=== PATIENT | female | born 1955 ===

== ENCOUNTER → 2019-12-18 12:52 | Outpatient (BNVA) | payer MEDICAID, SELFPAY | PROVIDERS: PCP Nurse Practitioner Family; Referring Provider Nurse Practitioner Family; Visit Provider Nurse Practitioner Gerontology | DX: E11.65 Type 2 diabetes mellitus with hyperglycemia (principal); E11.22 Type 2 diabetes mellitus with diabetic chronic kidney disease; N18.30 Chronic kidney disease, stage 3 unspecified; E78.5 Hyperlipidemia, unspecified; Z79.4 Long term (current) use of insulin | CPT/HCPCS: 82947; 99214 ==

== ENCOUNTER 2020-01-07 16:25 | Emergency (ER) | payer MEDICAID, SELFPAY ==
[2020-01-07 16:38] VITALS: BP 166/70; PULSE 88; RESP 15; TEMP 37.3; O2SAT 97; BMI 33.2
--- NOTE | 2020-01-07 17:49 | ECG_ITS ---
Test Reason : ANXIETY Blood Pressure : / mmHG Vent. Rate : 091 BPM Atrial Rate : 091 BPM P-R Int : 156 ms QRS Dur : 120 ms QT Int : 392 ms P-R-T Axes : 072 -49 067 degrees QTc Int : 482 ms Normal sinus rhythm Right bundle branch block Left anterior fascicular block Bifascicular block Abnormal ECG Compared to 17-Jul-2019 at 15:34:20 Heart rate has decreased Referred By: Alex Rodriguez Electronically Signed By:GRUPO RAY MD
--- NOTE | 2020-01-07 17:49 | XR_ITS ---
EXAMINATION: XR CHEST CLINICAL INFORMATION: Shortness of breath COMPARISON: Chest x-ray 08/10/2019 and CTA chest 05/06/2016 TECHNIQUE: Frontal view of the chest was obtained. FINDINGS: Cardiac silhouette is normal in size. Lungs are adequately aerated. No lobar consolidation is present. There is similar coarsening of the interstitial markings with subtle bibasilar opacities which appear chronic. No pleural effusion or pneumothorax. No gross osseous abnormality. XR/XR chest 1V IMPRESSION: Chronic coarsening of the interstitial markings with subtle bibasilar opacities. Findings are nonspecific but likely hvac sales representative of air trapping from small airways disease. Given the chronic nature of these findings, infection is lower on the differential. Clinical correlation recommended.
--- NOTE | 2020-01-07 17:52 | ED.ANXIETY ---
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 Patient otherwise declined SI or HI or hallucination. Related Data Home Medications Medication Instructions Recorded Confirmed docusate sodium 100 mg capsule 100 mg PO BID 12/18/19 12/18/19 ibuprofen 800 mg tablet 800 mg PO Q8H 12/18/19 12/18/19 lamotrigine 100 mg tablet 100 mg PO DAILY 12/18/19 12/18/19 lisinopril 10 mg tablet 10 mg PO DAILY 12/18/19 12/18/19 lorazepam 1 mg tablet 1 mg PO TID PRN 12/18/19 12/18/19 olanzapine 15 mg tablet 15 mg PO DAILY 12/18/19 12/18/19 omeprazole 20 mg capsule,delayed 20 mg PO DAILY 12/18/19 12/18/19 release simvastatin 20 mg tablet 20 mg PO BEDTIME 12/18/19 12/18/19 vilazodone 20 mg tablet 20 mg PO DAILY 12/18/19 12/18/19 Previous Rx's Medication Instructions Recorded pioglitazone 30 mg tablet 30 mg PO DAILY 30 Days #30 tab 12/03/19 simvastatin 20 mg tablet 20 mg PO DAILY 30 Days #30 tab 12/03/19 metformin 500 mg tablet 500 mg PO BID #60 tab 12/18/19 aspirin 81 mg tablet,delayed 81 mg PO DAILY #30 tab 01/01/20 release insulin aspar prot-insulin aspart See Rx Instructions SUBCUT BID 30 01/01/20 100 unit/mL (70-30) subcutaneous Days #18 ml pen Allergies Allergy/AdvReac Type Severity Reaction Status Date / Time duloxetine [Cymbalta] Allergy Unknown Verified 10/01/19 00:00 hydroxyzine Allergy Unknown Verified 10/01/19 00:00 risperidone Allergy Unknown Verified 10/01/19 00:00 trazodone Allergy Unknown Verified 10/01/19 00:00 quetiapine [From SEROQUEL] AdvReac Severe Acute Unverified 11/15/19 15:07 Dystonic reaction Review of Systems Review of Systems: All other systems are reviewed and are negative Constitutional: Reports as per HPI and Reports no additional constitutional complaints Eyes: Reports as per HPI and Reports no additional eye complaints Reports system reviewed and no additional complaints, except as documented Cardiovascular: Reports as per HPI and Reports no additional cardiovascular complaints Respiratory: Reports as per HPI and Reports no additional respiratory complaints Gastrointestinal: Reports as per HPI and Reports no additional gastrointestinal complaints Genitourinary: Reports no additional female genitourinary complaints Musculoskeletal: Reports no additional musculoskeletal complaints Skin/Breast: Reports system reviewed and no additional complaints, except as docu Psychiatric: Reports no additional psychiatric complaints Endocrine: Reports no additional endocrine complaints Hematologic/Lymphatic: Reports no additional hematologic/lymphatic complaints Allergic/Immunologic: Reports no additional allergic/immunologic complaints Reports system reviewed and no additional complaints, except as documented and Reports Abnormal speech present [facility] Past Medical History Medical History CAD (coronary artery disease) Chronic kidney disease, stage 3 unspecified Dementia Depression with anxiety Dermatitis Dermatophytosis Diabetes mellitus with hyperglycemia Dyslipidemia Essential hypertension Joint pain PTSD (post-traumatic stress disorder) Schizoaffective disorder Smoking 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 Mother No problems noted. Social History Social History Household Members: None Smoking Status: Smoker, status unknown Advance Directives: No Advance Directives Information Provided: Yes Physical Exam Vital Signs: Vital Signs: Last Vital Signs Temp 99.1 F 01/07/20 16:38 Pulse 88 01/07/20 16:38 Resp 15 01/07/20 16:38 BP 166/70 H 01/07/20 16:38 Pulse Ox 97 01/07/20 16:38 Body Mass Index 33.2 Vital signs have been reviewed as normal and appeared to be correct. Blood pressure on the high range. Heart rate normal. Respiration rate normal. Temperature normal. Oxygen saturation normal. Appearance: Alert. Oriented X3. No acute distress. Appears anxious Head: Normal external exam. Normocephalic. Atraumatic. No Mathew signs noted. No raccoon eyes noted Eyes: PERRLA. EOMI. Conjunctiva and sclera normal. Eyelids normal. ENT: EAC normal. TM's Normal. Pharynx normal. Uvula midline. Moist mucous membranes. No trismus noted. No drooling noted. No muffled voice noted. Neck: Normal inspection. Neck supple. FROM. No adenopathy. Thyroid Normal. No meningeal signs. No neck mass noted. CVS: Normal heart rate and rhythm. Heart sound normal. No murmurs noted. Pulses normal throughout. Respiratory: No respiratory distress. Painless inspiration. Breath sounds normal. No wheezes/rales/rhonchi noted. Chest nontender. No accessory muscle usage noted or decreased air movement noted. Abdomen: Soft and nontender. Bowel sounds normal in all 4 quadrants. No distention noted. No organomegaly noted. No visible injury noted. Back: No CVA tenderness. Full range of motion noted. Skin: Skin warm and dry. Normal skin color. Normal skin turgor. No rashes/lesions/lacerations noted. Extremities: No lower extremity edema. Extremities exhibit normal range of motion. Extremities nontender. Neuro: Oriented X 3. No motor deficit. No sensory deficit. Reflexes normal. 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 MDM - Anxiety MDM Narrative Medical decision making narrative: 64-year-old female been on Ativan for anxiety for very long time, patient has not received her Ativan at home for the past week, patient is supposed to receive a new prescription tomorrow. Patient received 1 dose of Ativan in the emergency department with relief of most of her symptoms,. Labs were checked slight leukocytosis with unclear etiology, rest of her labs are unremarkable otherwise. Lab Data Result diagrams: 01/07/20 19:34 01/07/20 19:34 Labs: Lab Results 01/07/20 01/07/20 01/07/20 Range/Units 19:34 19:34 19:34 WBC 13.2 H (4.8-10.8) X10*3/uL RBC 4.52 (4.20-5.50) X10*6/uL Hgb 12.4 (12.0-16.0) g/dl Hct 38.2 (37-47) % MCV 84.5 (80-98) fL MCH 27.4 (27.0-33.0) pg MCHC 32.5 (31.0-35.0) g/dl RDW 13.9 (11.0-16.0) % Plt Count 188 (160-400) X10*3/uL MPV 12.7 H (9.4-12.3) fL Immature Gran % (Auto) 0.3 (0.0-0.4) % Neut % (Auto) 54.0 (45-73) % Lymph % (Auto) 37.0 (20-40) % [place] % (Auto) 7.3 (2-11) % Eos % (Auto) 1.1 (0-4) % Baso % (Auto) 0.3 (0-2) % Lymph # (Auto) 4.9 (1.2-4.9) X10*3/uL [place] # (Auto) 1.0 (0.1-1.2) X10*3/uL Eos # (Auto) 0.2 (0.0-0.4) X10*3/uL Baso # (Auto) 0.0 (0.0-0.2) X10*3/uL Abs Immat Gran (auto) 0.04 H (0.00-0.03) X10*3/uL Absolute Neuts (auto) 7.1 (2.0-8.3) X10*3/uL Absolute Nucleated RBC 0.000 (0.0-0.012) X10*3/uL Nucleated RBC % (auto) 0.0 (0.0-0.2) /100WBC Sodium 137 (135-145) mmol/L Potassium 4.4 (3.3-5.1) mmol/l Chloride 102 (96-108) mmol/L Carbon Dioxide 27 (22-29) mmol/L Anion Gap 12 (12-20) BUN 17 H (9-16) mg/dL Creatinine 1.25 (0.5-1.4) mg/dL Estim Creat Clear Calc 42.2 Estimated GFR 43 Random Glucose 257 H (60-115) mg/dL Calcium 9.3 (8.4-10.2) mg/dL Troponin I High Sens 6.0 (<3.5-17.0) ng/L B-Natriuretic Peptide (<100) pg/mL Lipase 26 (8-78) U/L 01/07/20 Range/Units 19:34 WBC (4.8-10.8) X10*3/uL RBC (4.20-5.50) X10*6/uL Hgb (12.0-16.0) g/dl Hct (37-47) % MCV (80-98) fL MCH (27.0-33.0) pg MCHC (31.0-35.0) g/dl RDW (11.0-16.0) % Plt Count (160-400) X10*3/uL MPV (9.4-12.3) fL Immature Gran % (Auto) (0.0-0.4) % Neut % (Auto) (45-73) % Lymph % (Auto) (20-40) % [place] % (Auto) (2-11) % Eos % (Auto) (0-4) % Baso % (Auto) (0-2) % Lymph # (Auto) (1.2-4.9) X10*3/uL [place] # (Auto) (0.1-1.2) X10*3/uL Eos # (Auto) (0.0-0.4) X10*3/uL Baso # (Auto) (0.0-0.2) X10*3/uL Abs Immat Gran (auto) (0.00-0.03) X10*3/uL Absolute Neuts (auto) (2.0-8.3) X10*3/uL Absolute Nucleated RBC (0.0-0.012) X10*3/uL Nucleated RBC % (auto) (0.0-0.2) /100WBC Sodium (135-145) mmol/L Potassium (3.3-5.1) mmol/l Chloride (96-108) mmol/L Carbon Dioxide (22-29) mmol/L Anion Gap (12-20) BUN (9-16) mg/dL Creatinine (0.5-1.4) mg/dL Estim Creat Clear Calc Estimated GFR Random Glucose (60-115) mg/dL Calcium (8.4-10.2) mg/dL Troponin I High Sens (<3.5-17.0) ng/L B-Natriuretic Peptide 11 (<100) pg/mL Lipase (8-78) U/L Imaging Data Chest x-ray: Radiologist's impression: Chronic coarsening of the interstitial markings with subtle bibasilar opacities. Findings are nonspecific but likely human resources hr representative of air trapping from small airways disease. Given the chronic nature of these findings, infection is lower on the differential. Clinical correlation recommended. ECG Data Interpretation: Normal sinus rhythm at 91 beats per minutes, a right bundle branch block, LVH, otherwise no concern of ST-T changes. No EKG changes from June 2019. Discharge Plan Discharge Clinical Impression: Anxiety Patient Disposition: Home, Self-Care Instructions: Generalized Anxiety Disorder (ED) Prescriptions: No Action pioglitazone 30 mg tablet 30 mg PO DAILY 30 Days Qty: 30 RF: 1 simvastatin 20 mg tablet 20 mg PO DAILY 30 Days Qty: 30 RF: 1 aspirin [Adult Aspirin Regimen] 81 mg tablet,delayed release (DR/EC) 81 mg PO DAILY Qty: 30 RF: 11 insulin asp prt-insulin aspart [Novolog Mix 70-30FlexPen U-100] 100 unit/mL (70-30) insulin pen See Rx Instructions subcut BID 30 Days Qty: 18 RF: 4 olanzapine [Zyprexa] 15 mg tablet 15 mg PO DAILY RF: 0 Viibryd 20 mg tablet 20 mg PO DAILY RF: 0 lamotrigine [Lamictal] 100 mg tablet 100 mg PO DAILY RF: 0 docusate sodium [Colace] 100 mg capsule 100 mg PO BID RF: 0 lorazepam [Ativan] 1 mg tablet 1 mg PO TID PRNRF: 0 ibuprofen 800 mg tablet 800 mg PO Q8H RF: 0 simvastatin [Zocor] 20 mg tablet 20 mg PO BEDTIME RF: 0 lisinopril 10 mg tablet 10 mg PO DAILY RF: 0 omeprazole 20 mg capsule,delayed release(DR/EC) 20 mg PO DAILY RF: 0 metformin 500 mg tablet 500 mg PO BID Qty: 60 RF: 6 Referrals: Physician,Unknown [Primary Care Provider] - 2 days
--- NOTE | 2020-01-07 17:58 | PC.NURSE ---
this rn calling slat basket maker machine, mgagy [phone] who states she ran out of ativan on . prescriber at [facility] said rx was sent to pharmacy but that med minder is seen by rn's bid from a. patient may have missed last med review and that pcp isn't sending refills for that reason. will see pcp on jan 16. takes ativan 1mg tid. will be delivered tomorrow. [facility] otherwise. please give one dose in ed and one by rx for am. 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
[2020-01-07 19:40] LABS: Basophils Percent Auto 0.3 % (0-2); Eosinophils Absolute Auto 0.2 X10*3/uL (0.0-0.4); Eosinophils Percent Auto 1.1 % (0-4); Hematocrit 38.2 % (37-47); Hemoglobin 12.4 g/dl (12.0-16.0); Imm Gran Abs Auto 0.04 X10*3/uL (0.00-0.03); Imm Gran Pct Auto 0.3 % (0.0-0.4); Lymphocytes Absolute Auto 4.9 X10*3/uL (1.2-4.9); MANUAL DIFF FLAG NO; Mean Corpuscular HGB Conc 32.5 g/dl (31.0-35.0); Mean Corpuscular Hemoglobin 27.4 pg (27.0-33.0); Mean Corpuscular Volume 84.5 fL (80-98); Mean Platelet Volume 12.7 fL (9.4-12.3); Monocytes Percent Auto 7.3 % (2-11); Neutrophils Absolute Auto 7.1 X10*3/uL (2.0-8.3); Platelet Count 188 X10*3/uL (160-400); Red Blood Count 4.52 X10*6/uL (4.20-5.50); Red Cell Distribution Width 13.9 % (11.0-16.0); White Blood Count 13.2 X10*3/uL (4.8-10.8)
[2020-01-07 20:00] LABS: Anion Gap 12 (12-20); Blood Urea Nitrogen 17 mg/dL (9-16); Calcium 9.3 mg/dL (8.4-10.2); Carbon Dioxide 27 mmol/L (22-29); Chloride 102 mmol/L (96-108); Creatinine Clr Calc Pharmacy 42.2; Estimated Glomerular Filt Rate 43; Glucose Random 257 mg/dL (60-115); Lipase 26 U/L (8-78); Potassium 4.4 mmol/l (3.3-5.1); Sodium 137 mmol/L (135-145)
[2020-01-07 20:05] LABS: B Type Natriuretic Peptide 11 pg/mL (<100)
[2020-01-07] MEDS: LORazepam 1 MG TABLET PO (20:23)
--- NOTE | 2020-01-07 20:24 | PC.NURSE ---
pt has been calm. sleeping at times
[2020-01-07 21:08] VITALS: BP 131/57; PULSE 88; RESP 16; TEMP 36.7; O2SAT 100
[2020-01-07 22:00] VITALS: BP 125/75; PULSE 85; RESP 16; TEMP 36.7; O2SAT 100
--- NOTE | 2020-01-07 22:00 | PC.NURSE ---
son, annita, aware of need for ride home and results of work up. pt will have ativan available at lunch times via normal route.
== END 2020-01-07 22:11 | disposition home or self-care (01) ==
PROVIDERS: Emergency Provider Emergency Medicine
DX: F41.1 Generalized anxiety disorder (principal); F43.0 Acute stress reaction; M54.5 Low back pain; I25.10 Atherosclerotic heart disease of native coronary artery without angina pectoris; Z79.899 Other long term (current) drug therapy
CPT/HCPCS: 36415; 71045; 80048; 83690; 83880; 84484; 85025; 93005; 99283; 99284

== ENCOUNTER 2020-02-26 16:50 | Outpatient (REF) | payer MEDICAID, SELFPAY | END 2020-02-26 16:51 | disposition home or self-care (01) | LOC: HO.LAB 16:50 | PROVIDERS: Visit Provider Internal Medicine | DX: Z20.828 Contact with and (suspected) exposure to other viral communicable diseases (principal) | CPT/HCPCS: C9803; U0003 ==

== ENCOUNTER 2020-03-12 08:49 | Outpatient (REF) | payer MEDICAID, SELFPAY ==
[2020-03-12 10:58] LABS: Alanine Aminotransferase 17 U/L (0-31); Albumin Level 4.5 g/dL (3.5-5.0); Alkaline Phosphatase 108 U/L (39-117); Anion Gap 13 (12-20); Aspartate Amino Transferase 13 U/L (5-31); Bilirubin Total 0.3 mg/dL (0.0-1.0); Blood Urea Nitrogen 15 mg/dL (9-16); Calcium 10.2 mg/dL (8.4-10.2); Carbon Dioxide 28 mmol/L (22-29); Chloride 99 mmol/L (96-108); Cholesterol 195 mg/dL; Estimated Glomerular Filt Rate 46; Glucose Fasting 237 mg/dL (60-99); HDL Cholesterol 47 mg/dL; LDL Cholesterol Calculated 102 mg/dl; Potassium 4.6 mmol/l (3.3-5.1); Sodium 135 mmol/L (135-145); Triglycerides 233 mg/dL
[2020-03-12 11:08] LABS: Creatinine Urine 32.62 mg/dL; Microalbum/Creatinine Ratio Ur 39.8 ug/mg cr
[2020-03-13 06:17] LABS: LDL Cholesterol Direct 114 mg/dL (<100)
== END 2020-03-12 08:50 | disposition home or self-care (01) ==
LOC: HO.LAB 08:49
PROVIDERS: PCP Registered Nurse; Visit Provider Nurse Practitioner Gerontology
DX: E11.65 Type 2 diabetes mellitus with hyperglycemia (principal); Z79.4 Long term (current) use of insulin
CPT/HCPCS: 36415; 80053; 80061; 82043; 83721

== ENCOUNTER → 2020-03-18 10:25 | Outpatient (BNVA) | payer MEDICAID, SELFPAY | PROVIDERS: PCP Registered Nurse; Visit Provider Nurse Practitioner Gerontology ==

== ENCOUNTER 2020-04-28 14:39 | Outpatient (REF) | payer MEDICAID, SELFPAY ==
--- NOTE | ~2020-04-28 | MR_ITS ---
EXAMINATION: MR LUMBAR SPINE WITHOUT CONTRAST CLINICAL INFORMATION: Acute flare-up of chronic low back pain. COMPARISON: CT lumbar spine 03/16/2019 TECHNIQUE: MRI of the lumbar spine was obtained using routine sequences without contrast. FINDINGS: There is normal lumbar lordosis. There is loss of L3-L4 and L5-S1 disc heights with degenerative disc changes. The rest of the disc heights and disc signal is normal. At L1-L2 and L2-L3 disc levels there is no significant disc bulge, herniation or spinal stenosis. The neural foramina are patent bilaterally. At L3-L4 disc level there is a broad-based moderate diffuse bulge flattening the ventral thecal sac with minimal circumferential canal stenosis. There is bilateral moderate narrowing of neural foramina from underlying facet joint arthropathy and mild ligament flavum hypertrophy. At L4-L5 disc level there is mild diffuse bulge flattening of the ventral thecal sac without spinal canal stenosis. There is mild bilateral facet joint and ligament flavum hypertrophy resulting in mild bilateral spinal canal stenosis. No disc herniation seen. At L5-S1 disc level there is combination of posterior disc bulge/spondylosis complex without spinal canal stenosis. There is severe bilateral neural foraminal narrowing from underlying disc bulge/spondylosis complex. There is [id number] bilateral facet joint arthropathy and hypertrophy. Mild endplate changes are seen at the L5-S1 and L3-L4 disc levels. The rest of the bone marrow signal is normal. Conus medullaris terminates at L1-L2 disc level. MR/MR lumbar spine wo con IMPRESSION: 1. Broad-based moderate diffuse bulge L3-L4 disc level with minimal circumferential canal stenosis and moderate bilateral neural foraminal narrowing. 2. Disc bulge/osteophyte complex L5-S1 disc level without spinal canal stenosis. There is severe bilateral neural from narrowing. 3. Degenerative disc changes with vacuum disc phenomena and endplate changes at the L3-L4 and L5-S1 disc levels.
== END 2020-04-28 14:40 | disposition home or self-care (01) ==
LOC: HO.MRI 14:39
PROVIDERS: Visit Provider Nurse Practitioner Family
DX: M54.41 Lumbago with sciatica, right side (principal); M54.42 Lumbago with sciatica, left side
CPT/HCPCS: 72148

== ENCOUNTER → 2020-04-29 12:49 | Outpatient (BNVA) | payer MEDICAID, SELFPAY | PROVIDERS: PCP Registered Nurse; Visit Provider Nurse Practitioner Gerontology | DX: E11.65 Type 2 diabetes mellitus with hyperglycemia (principal); E11.22 Type 2 diabetes mellitus with diabetic chronic kidney disease; N18.30 Chronic kidney disease, stage 3 unspecified; Z79.4 Long term (current) use of insulin; E78.5 Hyperlipidemia, unspecified | CPT/HCPCS: 82947; 99212 ==

== ENCOUNTER → 2020-05-13 13:26 | Outpatient (BNVA) | payer MEDICAID, SELFPAY | PROVIDERS: PCP Registered Nurse; Visit Provider Nurse Practitioner Gerontology | DX: E11.65 Type 2 diabetes mellitus with hyperglycemia (principal); E11.22 Type 2 diabetes mellitus with diabetic chronic kidney disease; N18.30 Chronic kidney disease, stage 3 unspecified; E78.5 Hyperlipidemia, unspecified; Z79.4 Long term (current) use of insulin; Z71.3 Dietary counseling and surveillance | CPT/HCPCS: 82947; 99212 ==

== ENCOUNTER 2020-05-20 13:33 | Outpatient (REF) | payer MEDICAID, SELFPAY ==
--- NOTE | ~2020-05-20 | MM_ITS ---
EXAMINATION: MM SCREENING DIGITAL BREAST TOMOSYNTHESIS, BILATERAL CLINICAL INFORMATION: Screening. Asymptomatic. The lifetime risk of breast cancer based on the Tyrer-Cuzick Model is 10%. COMPARISON: Mammography: 10/26/2018, 10/20/2017, 10/18/2016 TECHNIQUE: Digital breast tomosynthesis is performed in both the craniocaudal and mediolateral oblique views along with computer-aided detection (CAD). Synthesized 2D images are generated from the tomosynthesis. FINDINGS: The breasts are heterogeneously dense, which may obscure small masses (ACR BI-RADS breast composition Category c). Parenchymal pattern is similar to prior studies. There is no interval mass or architectural abnormality. Small circumscribed nodule central left breast in MLO view and outer right breast on CC view are stable. There are scattered bilateral vascular and punctate calcifications again seen in both breasts. The axilla are unremarkable. No significant changes. MM/MM tomosynthesis screening BI IMPRESSION: No mammographic evidence of malignancy. ASSESSMENT: BI-RADS 2: Benign RECOMMENDATION: Routine annual mammography screening. This patient's information was entered into a reminder system with a target due date for their next mammogram.
== END 2020-05-20 13:34 | disposition home or self-care (01) ==
LOC: HO.MAMMO 13:33
PROVIDERS: PCP Nurse Practitioner Family; Visit Provider Advanced Practice Midwife
DX: Z12.31 Encounter for screening mammogram for malignant neoplasm of breast (principal)
CPT/HCPCS: 77063; 77067

== ENCOUNTER → 2020-06-25 12:26 | Outpatient (BNVA) | payer MEDICAID, SELFPAY | PROVIDERS: PCP Nurse Practitioner Family; Visit Provider Nurse Practitioner Gerontology | DX: E11.65 Type 2 diabetes mellitus with hyperglycemia (principal); E11.22 Type 2 diabetes mellitus with diabetic chronic kidney disease; N18.30 Chronic kidney disease, stage 3 unspecified; Z79.4 Long term (current) use of insulin; E78.5 Hyperlipidemia, unspecified | CPT/HCPCS: 82947; 99212 ==

== ENCOUNTER → 2020-08-04 13:06 | Outpatient (BNVA) | payer MEDICAID, SELFPAY | PROVIDERS: PCP Nurse Practitioner Family; Visit Provider Nurse Practitioner Gerontology | DX: E11.65 Type 2 diabetes mellitus with hyperglycemia (principal); E11.42 Type 2 diabetes mellitus with diabetic polyneuropathy; E11.22 Type 2 diabetes mellitus with diabetic chronic kidney disease; N18.30 Chronic kidney disease, stage 3 unspecified; E78.5 Hyperlipidemia, unspecified; Z79.4 Long term (current) use of insulin | CPT/HCPCS: 82947 ==

== ENCOUNTER 2020-09-29 12:20 | Inpatient (IN) | payer OTHER, MEDICAID, SELFPAY ==
--- NOTE | ~2020-09-29 | CT_ITS ---
EXAMINATION: CT HEAD WITHOUT CONTRAST CLINICAL INFORMATION: Altered mental status. COMPARISON: None TECHNIQUE: Contiguous axial imaging was performed from the skull base to vertex without intravenous administration of contrast. This CT examination was performed using dose optimization techniques as appropriate, variously including the following: *Automated exposure control *Adjustment of mA and/or kV according to patient size (this includes techniques or standardized protocols for targeted exams where dose is matched to indication/reason for exam; i.e. extremities or head) *Use of iterative reconstruction technique DLP: 631 mGy-cm FINDINGS: There is no evidence of acute intracranial hemorrhage or territorial infarction. No abnormal mass effect or midline shift is seen. Aponte to white matter differentiation is well preserved. No extra-axial fluid collections are identified. The ventricles are normal in size. There is no abnormal attenuation within the brain parenchyma. The osseous structures and soft tissues are normal. There is diffuse mucoperiosteal thickening right sphenoid sinus. Rest of the paranasal sinuses and mastoid air cells are well-aerated. No scalp soft tissue abnormality seen. CT/CT head/brain wo con IMPRESSION: No acute intracranial process seen.
--- NOTE | 2020-09-29 12:28 | ED_ITS ---
HPI - Psych General Chief Complaint: Psychiatric Symptoms Stated Complaint: STROKE ALERT Time Seen by Provider: 09/29/20 12:28 Source: patient, EMS and sofa back upholsterer Mode of arrival: ambulatory Limitations: no limitations History of Present Illness HPI Narrative: 65-year-old female brought in by ambulance for evaluation of suicidal ideation, hallucination, and possible stroke. 65-year-old female has suicidal gesturing, and hearing auditory hallucination telling her to kill herself, PD was initiating Section 12 for to bring her to the hospital for further evaluation, then reportedly by EMS patient started to have mental status change, patient became calm, EMS crew were concerned patient might have an acute stroke, on arrival patient is complaining of back pain, awake, alert, able to answer all the question, no speech abnormalities has been noted, patient is still complaining of suicidal ideation, and hearing voices telling her to overdose on her medication and kill herself. Patient complains of no headache, exam revealed no weakness or numbness. Related Data Home Medications Medication Instructions Recorded Confirmed docusate sodium 100 mg capsule 200 mg PO BEDTIME 12/18/19 09/29/20 (Colace) lorazepam 1 mg tablet (Ativan) 1 mg PO TID PRN 12/18/19 09/29/20 omeprazole 20 mg capsule,delayed 20 mg PO DAILY 12/18/19 09/29/20 release vilazodone 20 mg tablet (Viibryd) 20 mg PO DAILY 12/18/19 09/29/20 multivitamin 1 tab PO DAILY 06/25/20 09/29/20 acetaminophen 500 mg tablet 1,000 mg PO Q8H PRN 09/29/20 09/29/20 (Tylenol Extra Strength) diclofenac sodium 1 % topical gel 1 ea TOPICAL DAILY PRN 09/29/20 09/29/20 insulin aspart U-100 100 unit/mL 8 unit SUBCUT DAILY 09/29/20 09/29/20 (3 mL) subcutaneous pen (Novolog Flexpen U-100 Insulin aspart) insulin aspart U-100 100 unit/mL 10 unit SUBCUT DAILY@1630 09/29/20 09/29/20 subcutaneous solution (Novolog U-100 Insulin aspart) lamotrigine 150 mg tablet 150 mg PO DAILY 09/29/20 09/29/20 (Lamictal) lidocaine 5 % topical patch 1 patch TOPICAL DAILY 09/29/20 09/29/20 (Lidoderm) olanzapine 20 mg tablet 20 mg PO BEDTIME 09/29/20 09/29/20 rosuvastatin 40 mg tablet (Crestor) 40 mg PO DAILY 09/29/20 09/29/20 Previous Rx's Medication Instructions Recorded aspirin 81 mg tablet,delayed 81 mg PO DAILY #30 tab 01/01/20 release (Adult Aspirin Regimen) blood-glucose meter (FreeStyle #1 ea 04/29/20 Lite Meter) blood sugar diagnostic (FreeStyle 1 strip MISCELLANEOUS TID #100 ea 05/19/20 Lite Strips) lancets 28 gauge (FreeStyle 1 gauge TOPICAL TID #100 ea 05/19/20 Lancets) metformin 500 mg tablet 500 mg PO BID #60 tab 06/18/20 insulin degludec 200 unit/mL (3 34 unit SUBCUT DAILY 30 Days #9 ml 08/04/20 mL) subcutaneous pen (Tresiba FlexTouch U-200 insulin) pen needle, diabetic 32 gauge x 1 ea MISCELLANEOUS TID #100 ea 08/08/20 (Unifine Pentips) lisinopril 10 mg tablet 10 mg PO DAILY #30 tab 08/11/20 pioglitazone 30 mg tablet 30 mg PO DAILY #30 tab 09/05/20 Allergies Allergy/AdvReac Type Severity Reaction Status Date / Time duloxetine [Cymbalta] Allergy Unknown Unknown Verified 08/04/20 13:52 hydroxyzine Allergy Unknown unknown Verified 08/04/20 13:52 risperidone Allergy Unknown Unknown Verified 08/04/20 13:52 trazodone Allergy Unknown Unknown Verified 08/04/20 13:52 quetiapine [From SEROQUEL] AdvReac Severe Acute Unverified 08/04/20 13:52 Dystonic reaction Review of Systems Review of Systems: All other systems are reviewed and are negative Constitutional: Reports as per HPI and Reports no additional constitutional complaints Eyes: Reports as per HPI and Reports no additional eye complaints Reports system reviewed and no additional complaints, except as documented Cardiovascular: Reports as per HPI and Reports no additional cardiovascular complaints Respiratory: Reports as per HPI and Reports no additional respiratory complaints Gastrointestinal: Reports as per HPI and Reports no additional gastrointestinal complaints Genitourinary: Reports no additional female genitourinary complaints Musculoskeletal: Reports no additional musculoskeletal complaints Skin/Breast: Reports system reviewed and no additional complaints, except as docu Psychiatric: Reports no additional psychiatric complaints Endocrine: Reports no additional endocrine complaints Hematologic/Lymphatic: Reports no additional hematologic/lymphatic complaints Allergic/Immunologic: Reports no additional allergic/immunologic complaints Reports system reviewed and no additional complaints, except as documented and Reports Abnormal speech present [facility] Past Medical History Medical History CAD (coronary artery disease) Chronic kidney disease, stage 3 unspecified Dementia Depression with anxiety Dermatitis Dermatophytosis Diabetes mellitus with hyperglycemia Dyslipidemia Essential hypertension Joint pain PTSD (post-traumatic stress disorder) Schizoaffective disorder Smoking 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 Mother No problems noted. Social History Social History Household Members: None Household Members Other:: has [facility] Services Do you presently have visiting nurse or other home services: Yes (2 x/day and STROBOSCOPE OPERATOR services) Alcohol intake: never Patient Tobacco Use Status: Current everyday Tobacco user Tobacco use type: Cigarette Use of substances other than those prescribed or required for medical reasons: No Advance Directives: No Advance Directives Information Provided: No Physical Exam Vital Signs: Vital Signs: Last Vital Signs Temp 97.7 F 09/29/20 13:36 Pulse 87 09/29/20 13:36 Resp 17 09/29/20 13:36 BP 145/58 H 09/29/20 13:36 Pulse Ox 96 09/29/20 13:36 Body Mass Index 33.2 Vital signs have been reviewed as appeared to be correct. Blood pressure normal. Heart rate normal. Respiration rate normal. Temperature normal. Oxygen saturation normal. Appearance: Alert. Oriented X3. No acute distress. Head: Normal external exam. Normocephalic. Atraumatic. No Mathew signs noted. No raccoon eyes noted Eyes: PERRLA. EOMI. Conjunctiva and sclera normal. Eyelids normal. ENT: TM's Normal. Pharynx normal. Uvula midline. Moist mucous membranes. No trismus noted. No drooling noted. No muffled voice noted. Neck: Normal inspection. Neck supple. FROM. No adenopathy. Thyroid Normal. No meningeal signs. No neck mass noted. CVS: Normal heart rate and rhythm. Heart sound normal. No murmurs noted. Pulses normal throughout. Respiratory: No respiratory distress. Painless inspiration. Breath sounds normal. No wheezes/rales/rhonchi noted. Chest nontender. No accessory muscle usage noted or decreased air movement noted. Abdomen: Soft and nontender. Bowel sounds normal in all 4 quadrants. No distention noted. No organomegaly noted. No visible injury noted. Back: No CVA tenderness. Full range of motion noted. Skin: Skin warm and dry. Normal skin color. Normal skin turgor. No rashes/lesions/lacerations noted. Extremities: No lower extremity edema. Extremities exhibit normal range of motion. Extremities nontender. Neuro: Oriented X 3. No motor deficit. No sensory deficit. Reflexes normal. Patient Appearance: Appropriate Patient Orientation: Person, Place, Time and Situation Level of Consciousness: Awake, Appropriate and Alert Patient Behavior: Talkative, Cooperative. Mood Description: Depressed. Affect Description: Flat. Patient Cognition Impaired: No Ability to Follow Directions: Good Speech Pattern: Spontaneous Speech Memory Description: Intact Hallucinations: Auditory hallucination. Delusions: Not Present Thought Process: NoneLogical. Thought Content: Non logical Depressive Symptoms: Increased anxiety. Judgement: Poor NIH Stroke Scale Level of Consciousness: Alert Level of Consciousness Questions: Answers both questions correctly Level of Consciousness Commands: Performs both tasks correctly Best Gaze: Normal Visual: No visual loss Facial Palsy: Normal Motor Arm (Right): No drift Motor Arm (Left): No drift Motor Leg (Right): No drift Motor Leg (Left): No drift Limb Ataxia: Absent Sensory: Normal Best Language: No aphasia Dysarthia: Normal Extinction and Inattention: No abnormality Score: 0 Course Course Course Narrative: Assessment and plan. [age] year female came in for SI, auditory hallucination, patient medically cleared. Physician observation started at 3:10 pm . Patient placed in physician observation because the patient needed more time for BHN for evaluation and the need for placement patient's vital sign were stable, patient is alert and oriented , neuro exam unchanged, unremarkable rest of physical exam. Leukocytosis that is chronic. MDM - Psych Medical Records Attestation: I reviewed the patient's medical records. Lab Data Attestation: I reviewed the patient's lab results. Result diagrams: 09/29/20 12:59 09/29/20 12:59 Labs: Lab Results 09/29/20 09/29/20 09/29/20 Range/Units 12:54 12:54 12:54 WBC (4.8-10.8) X10*3/uL RBC (4.20-5.50) X10*6/uL Hgb (12.0-16.0) g/dl Hct (37-47) % MCV (80-98) fL MCH (27.0-33.0) pg MCHC (31.0-35.0) g/dl RDW (11.0-16.0) % Plt Count (160-400) X10*3/uL MPV (9.4-12.3) fL Immature Gran % (Auto) (0.0-0.4) % Neut % (Auto) (45-73) % Lymph % (Auto) (20-40) % [place] % (Auto) (2-11) % Eos % (Auto) (0-4) % Baso % (Auto) (0-2) % Lymph # (Auto) (1.2-4.9) X10*3/uL [place] # (Auto) (0.1-1.2) X10*3/uL Eos # (Auto) (0.0-0.4) X10*3/uL Baso # (Auto) (0.0-0.2) X10*3/uL Abs Immat Gran (auto) (0.00-0.03) X10*3/uL Absolute Neuts (auto) (2.0-8.3) X10*3/uL Absolute Nucleated RBC (0.0-0.012) X10*3/uL Nucleated RBC % (auto) (0.0-0.2) /100WBC Sodium (135-145) mmol/L Potassium (3.3-5.1) mmol/L Chloride (96-108) mmol/L Carbon Dioxide (22-29) mmol/L Anion Gap (12-20) BUN (9-16) mg/dL Creatinine (0.5-1.4) mg/dL Estim Creat Clear Calc Estimated GFR Random Glucose (60-115) mg/dL Calcium (8.4-10.2) mg/dL Total Bilirubin (0.0-1.0) mg/dL Direct Bilirubin (0.0-0.5) mg/dL AST (5-31) U/L ALT (0-31) U/L Alkaline Phosphatase (39-117) U/L Troponin I High Sens 3.7 (<3.5-17.0) ng/L Total Protein (6.5-8.0) g/dL Albumin (3.5-5.0) g/dL Lipase (8-78) U/L Urine Color YELLOW Urine Appearance CLEAR Urine pH 6.0 (5.0-8.0) Ur Specific [place] <= 1.005 (1.005-1.025) Urine Protein NEG (NEG-TRACE) MG/DL Urine Glucose (UA) 100 H (NEG) MG/DL Urine Ketones NEG (NEG) MG/DL Urine Blood NEG (NEG) Urine Nitrite NEG (NEG) Ur Leukocyte Esterase NEG (NEG) Urine Opiates Screen Not Detected (Not Detect) Ur Barbiturates Screen Not Detected (Not Detect) Ur Phencyclidine Scrn Not Detected (Not Detect) Ur Amphetamines Screen Not Detected (Not Detect) U Benzodiazepines Scrn Not Detected (Not Detect) Urine Cocaine Screen Not Detected (Not Detect) U Marijuana (THC) Screen Not Detected (Not Detect) 09/29/20 09/29/20 Range/Units 12:59 12:59 WBC 15.2 H (4.8-10.8) X10*3/uL RBC 4.63 (4.20-5.50) X10*6/uL Hgb 12.6 (12.0-16.0) g/dl Hct 39.0 (37-47) % MCV 84.2 (80-98) fL MCH 27.2 (27.0-33.0) pg MCHC 32.3 (31.0-35.0) g/dl RDW 14.4 (11.0-16.0) % Plt Count 197 (160-400) X10*3/uL MPV 12.6 H (9.4-12.3) fL Immature Gran % (Auto) 0.3 (0.0-0.4) % Neut % (Auto) 58.5 (45-73) % Lymph % (Auto) 31.8 (20-40) % [place] % (Auto) 7.6 (2-11) % Eos % (Auto) 1.4 (0-4) % Baso % (Auto) 0.4 (0-2) % Lymph # (Auto) 4.8 (1.2-4.9) X10*3/uL [place] # (Auto) 1.2 (0.1-1.2) X10*3/uL Eos # (Auto) 0.2 (0.0-0.4) X10*3/uL Baso # (Auto) 0.1 (0.0-0.2) X10*3/uL Abs Immat Gran (auto) 0.05 H (0.00-0.03) X10*3/uL Absolute Neuts (auto) 8.9 H (2.0-8.3) X10*3/uL Absolute Nucleated RBC 0.000 (0.0-0.012) X10*3/uL Nucleated RBC % (auto) 0.0 (0.0-0.2) /100WBC Sodium 137 (135-145) mmol/L Potassium 4.3 (3.3-5.1) mmol/L Chloride 105 (96-108) mmol/L Carbon Dioxide 22 (22-29) mmol/L Anion Gap 14 (12-20) BUN 13 (9-16) mg/dL Creatinine 1.02 (0.5-1.4) mg/dL Estim Creat Clear Calc 51.1 Estimated GFR 55 Random Glucose 177 H (60-115) mg/dL Calcium 9.9 (8.4-10.2) mg/dL Total Bilirubin < 0.2 (0.0-1.0) mg/dL Direct Bilirubin < 0.2 (0.0-0.5) mg/dL AST 14 (5-31) U/L ALT 16 (0-31) U/L Alkaline Phosphatase 83 D (39-117) U/L Troponin I High Sens (<3.5-17.0) ng/L Total Protein 7.6 (6.5-8.0) g/dL Albumin 4.3 (3.5-5.0) g/dL Lipase 24 (8-78) U/L Urine Color Urine Appearance Urine pH (5.0-8.0) Ur Specific [place] (1.005-1.025) Urine Protein (NEG-TRACE) MG/DL Urine Glucose (UA) (NEG) MG/DL Urine Ketones (NEG) MG/DL Urine Blood (NEG) Urine Nitrite (NEG) Ur Leukocyte Esterase (NEG) Urine Opiates Screen (Not Detect) Ur Barbiturates Screen (Not Detect) Ur Phencyclidine Scrn (Not Detect) Ur Amphetamines Screen (Not Detect) U Benzodiazepines Scrn (Not Detect) Urine Cocaine Screen (Not Detect) U Marijuana (THC) Screen (Not Detect) Imaging Data CT scan - head: Radiologist's impression: No clear intracranial pathology. ECG Data Interpretation: Normal sinus rhythm at 87 beats per minutes, right bundle-branch block, bifascicular block, LVH. Discharge Plan Discharge Clinical Impression: Bipolar disorder, Depression Prescriptions: No Action aspirin [Adult Aspirin Regimen] 81 mg tablet,delayed release (DR/EC) 81 mg PO DAILY Qty: 30 RF: 11 blood sugar diagnostic [FreeStyle Lite Strips] Strip 1 strip miscellaneous TID Qty: 100 RF: 11 lancets [FreeStyle Lancets] 28 gauge misc 1 gauge topical TID Qty: 100 RF: 11 metformin 500 mg tablet 500 mg PO BID Qty: 60 RF: 5 pen needle, diabetic [Unifine Pentips] 32 gauge x 5/32 needle 1 ea miscellaneous TID Qty: 100 RF: 11 lisinopril 10 mg tablet 10 mg PO DAILY Qty: 30 RF: 1 pioglitazone 30 mg tablet 30 mg PO DAILY Qty: 30 RF: 3 lamotrigine [Lamictal] 150 mg Tablet 150 mg PO DAILY RF: 0 acetaminophen [Tylenol Extra Strength] 500 mg Tablet 1,000 mg PO Q8H PRN (Reason: Pain) RF: 0 insulin aspart U-100 [Novolog U-100 Insulin aspart] 100 unit/mL Solution 10 unit SUBCUT DAILY@1630 RF: 0 lidocaine [Lidoderm] 5 % Adhesive Patch,Medicated 1 patch TOPICAL DAILY RF: 0 olanzapine 20 mg Tablet 20 mg PO BEDTIME RF: 0 rosuvastatin [Crestor] 40 mg Tablet 40 mg PO DAILY RF: 0 diclofenac sodium [Voltaren] 1 % Gel 1 ea TOPICAL DAILY PRN (Reason: Pain) RF: 0 insulin aspart U-100 [Novolog Flexpen U-100 Insulin] 100 unit/mL (3 mL) insulin pen 8 unit subcut DAILY RF: 0 Viibryd 20 mg tablet 20 mg PO DAILY RF: 0 docusate sodium [Colace] 100 mg capsule 200 mg PO BEDTIME RF: 0 lorazepam [Ativan] 1 mg tablet 1 mg PO TID PRN (Reason: Anxiety) RF: 0 omeprazole 20 mg capsule,delayed release(DR/EC) 20 mg PO DAILY RF: 0 multivitamin Tablet 1 tab PO DAILY RF: 0 Tresiba FlexTouch U-200 200 unit/mL (3 mL) insulin pen 34 unit subcut DAILY 30 Days Qty: 9 RF: 3 (DME) blood-glucose meter [FreeStyle Lite Meter] Kit See Rx Instructions .ROUTE .MEDSUPPLY Qty: 1 RF: 0
[2020-09-29 12:47] VITALS: BMI 33.2
--- NOTE | 2020-09-29 12:54 | PC.NURSE ---
Pt called EMS for increasing thoughts of SI following starting to hear voices that are telling her to kill herself and having VH of people . pt reports she had plans to stab herself with a knife and take all her medications./ Pt reports these are new sx following starting new medication three weeks ago. she reports her PUBLIC BATH ATTENDANT encouraged her to to come to the hospital for evaluation. pt reports feeling safe in the hospital now. Vitals take. Pt belongings locked in locker 1
[2020-09-29 13:04] LABS: MANUAL DIFF FLAG NO
[2020-09-29 13:09] LABS: Basophils Absolute Auto 0.1 X10*3/uL (0.0-0.2); Basophils Percent Auto 0.4 % (0-2); Eosinophils Absolute Auto 0.2 X10*3/uL (0.0-0.4); Eosinophils Percent Auto 1.4 % (0-4); Hemoglobin 12.6 g/dl (12.0-16.0); Imm Gran Abs Auto 0.05 X10*3/uL (0.00-0.03); Imm Gran Pct Auto 0.3 % (0.0-0.4); Lymphocytes Absolute Auto 4.8 X10*3/uL (1.2-4.9); Lymphocytes Percent Auto 31.8 % (20-40); Mean Corpuscular HGB Conc 32.3 g/dl (31.0-35.0); Mean Corpuscular Hemoglobin 27.2 pg (27.0-33.0); Mean Corpuscular Volume 84.2 fL (80-98); Mean Platelet Volume 12.6 fL (9.4-12.3); Monocytes Absolute Auto 1.2 X10*3/uL (0.1-1.2); Monocytes Percent Auto 7.6 % (2-11); Neutrophils Absolute Auto 8.9 X10*3/uL (2.0-8.3); Neutrophils Percent Auto 58.5 % (45-73); Platelet Count 197 X10*3/uL (160-400); Red Blood Count 4.63 X10*6/uL (4.20-5.50); Red Cell Distribution Width 14.4 % (11.0-16.0); White Blood Count 15.2 X10*3/uL (4.8-10.8)
--- NOTE | 2020-09-29 13:10 | ECG_ITS ---
Test Reason : NEURO SYMP Blood Pressure : / mmHG Vent. Rate : 087 BPM Atrial Rate : 087 BPM P-R Int : 162 ms QRS Dur : 124 ms QT Int : 390 ms P-R-T Axes : 070 -51 063 degrees QTc Int : 469 ms Normal sinus rhythm Right bundle branch block Left anterior fascicular block Bifascicular block Abnormal ECG When compared with ECG of 07-JAN-2020 18:56, No significant change was found Referred By: Alex Rodriguez Electronically Signed By:Kirk [place]
[2020-09-29 13:12] LABS: Glucose Urine UA 100 MG/DL (NEG); Leukocyte Esterase Urine NEG (NEG); Nitrite Urine NEG (NEG); Specific Gravity - Urine <= 1.005 (1.005-1.025); Urine Blood NEG (NEG); Urine Ketones NEG (NEG); Urine Protein NEG (NEG-TRACE)
[2020-09-29 13:13] LABS: Appearance Urine CLEAR; Color Urine YELLOW
--- NOTE | 2020-09-29 13:28 | PC.NURSE ---
[facility]D contact, Bertha, called to check status of pt. Offered transport for pt if discharged, phone is [phone], avaiable until 4pm.
[2020-09-29 13:36] VITALS: BP 145/58; PULSE 87; RESP 17; TEMP 36.5; O2SAT 96
[2020-09-29 13:44] LABS: Amphetamine Screen Urine Not Detected (Not Detect); Barbiturates, Urine Not Detected (Not Detect); Benzodiazepines Screen Urine Not Detected (Not Detect); Cannabinoid Screen Urine Not Detected (Not Detect); Cocaine Screen Urine Not Detected (Not Detect); Opiate Screen Urine Not Detected (Not Detect); Phencyclidine Screen Urine Not Detected (Not Detect)
[2020-09-29 13:56] LABS: Alanine Aminotransferase 16 U/L (0-31); Albumin Level 4.3 g/dL (3.5-5.0); Alkaline Phosphatase 83 U/L (39-117); Anion Gap 14 (12-20); Aspartate Amino Transferase 14 U/L (5-31); Bilirubin Direct < 0.2 mg/dL (0.0-0.5); Bilirubin Total < 0.2 mg/dL (0.0-1.0); Blood Urea Nitrogen 13 mg/dL (9-16); Calcium 9.9 mg/dL (8.4-10.2); Carbon Dioxide 22 mmol/L (22-29); Chloride 105 mmol/L (96-108); Creatinine Clr Calc Pharmacy 51.1; Estimated Glomerular Filt Rate 55; Glucose Random 177 mg/dL (60-115); Lipase 24 U/L (8-78); Potassium 4.3 mmol/L (3.3-5.1); Sodium 137 mmol/L (135-145); Total Protein 7.6 g/dL (6.5-8.0)
--- NOTE | 2020-09-29 14:02 | PC.NURSE ---
Roberto data transfer sent at 1400
[2020-09-29 14:10] LABS: Troponin-I High Sensitivity 3.7 ng/L (<3.5-17.0)
--- NOTE | 2020-09-29 14:24 | PHA.MEDREC ---
Pharmacy Consult ? Medication Reconciliation Pharmacy has completed the medication reconciliation using list from [facility].
--- NOTE | 2020-09-29 14:44 | PC.NURSE ---
pt calm and cooperative at this time, continues to await N assessment.
[2020-09-29 16:06] LABS: COVID-19 Test Negative (Negative); IDNOW Serial# 9DD0AD1C
[2020-09-29 16:39] LABS: Glucose, Whole Blood 209 mg/dL (60-115)
[2020-09-29 16:42] VITALS: BP 168/52; PULSE 89; O2SAT 97
--- NOTE | 2020-09-29 16:43 | PC.NURSE ---
Pt reporting she does not feel well, endorsing feelings of anxiety and that she would like to go to the fifth floor. Carlos requested for pt, awaiting order at this time.
[2020-09-29] MEDS: LORazepam 1 MG TABLET PO (17:25)
--- NOTE | 2020-09-29 19:26 | PC.NURSE ---
Patient is in her bed appears sleeping, no distress observed/reported, BHN called/spoke with Brian confirmed receipt of referral, ETA is overnight, patient is diabetic, med rec completed/MAR updated, will continue to monitor.
--- NOTE | 2020-09-29 19:43 | MHC.CARE ---
[facility] unable to provide a clinician to evaluate pt until 3rd shift. CARE team contacted Leny from [facility] crisis triage re: CARE team assuming responsibility of evaluating pt and requested that [facility] be notified of this. This conventional mortgage underwriter is reviewing chart and previous visits and will meet with pt for assessment shortly.
[2020-09-29 20:38] LABS: Glucose, Whole Blood 170 mg/dL (60-115)
[2020-09-29] MEDS: OLANZapine 10 MG TABLET 20 MG PO (21:18)
[2020-09-29] MEDS: Docusate Sodium 100 MG CAPSULE 200 MG PO (21:18)
--- NOTE | 2020-09-29 21:45 | PC.NURSE ---
Patient's POC was checked at 2033 and was 170, patient's takes scheduled Humalog BID and Lantus daily in the morning, provider notified/no covergae ordered, patient compliant with her nighttime medication, behavior calm and quiet, isolates herself in her room, will continue to monitor.
--- NOTE | 2020-09-29 22:25 | MHC.CARE ---
CARE team completed evaluation with pt. Disposition is for IPLOC. Dr. Rodriguez and Trev DRAPER are in agreement with plan of care. Pt is agreeable for admission, however a Sect 12a has been signed by Dr. Rodriguez and placed in pt's chart for the purpose of safety and containment due to her level of risk for harm to self. This junior copywriter called [facility] via [facility] to get in queue to provide clinical for auth pre-cert at 21:30.
[2020-09-30 05:09] VITALS: BP 120/50; PULSE 95; RESP 20; TEMP 36.5; O2SAT 97
--- NOTE | 2020-09-30 05:38 | PC.NURSE ---
Patient slept through the night, OOR x 1 for bathroom use and back, ambulated securely with her personal walker, denied distress, reported bed being not comfortable, VSS, medication compliant, patient disposition section 12 inpatient bed search, possible admission S1([facility]-psych) today, care team is working on it, behavior appropriate, will continue to monitor.
[2020-09-30] MEDS: Omeprazole 20 MG CAPSULE.DR PO (06:34)
[2020-09-30 07:37] VITALS: BP 137/62; PULSE 83; RESP 17; TEMP 36.7; O2SAT 96
[2020-09-30 09:19] VITALS: BP 137/62; PULSE 83
[2020-09-30] MEDS: Aspirin Enteric Coated 81 MG TABLET.DR PO (09:20)
[2020-09-30] MEDS: lamoTRIgine 100 MG TABLET 150 MG PO (09:20)
[2020-09-30] MEDS: Atorvastatin Calcium 80 MG TABLET PO (09:20)
[2020-09-30] MEDS: Insulin Glargine,Hum.rec.anlog 100 UNIT/ML 10 ML VIAL 24 UNIT SUBCUT (09:20)
[2020-09-30] MEDS: metFORMIN HCl 500 MG TABLET PO ×2 (09:20→18:56)
[2020-09-30] MEDS: Insulin Lispro 100 UNIT/ML 3 ML VIAL 8 UNIT SUBCUT (09:21)
[2020-09-30] MEDS: Lidocaine 4 % Patch ADH..PATCH 1 PATCH TRANSDERMA (09:21)
[2020-09-30] MEDS: Multivitamin TABLET 1 TAB PO (09:25)
[2020-09-30] MEDS: Vilazodone HCL 20 MG TABLET PO (09:31)
[2020-09-30] MEDS: Pioglitazone HCL 30 MG TABLET PO (09:31)
--- NOTE | 2020-09-30 10:31 | PC.NURSE ---
PT HAS BEEN CALM AND COOPERATIVE, PT IS AND INPATIENT BED SEARCH. WAITING FOR PLACEMENT
--- NOTE | 2020-09-30 12:04 | MHC.CARE ---
CARE Team spoke to LAKESHA Chan about patient going to the 65+ unit do to her numerous medical conditions vs regular adult unit. Per supervisor forming and tempering Alicia Sharma no special permission or different type of auth needed. 3 days, [id number]
[2020-09-30 13:22] LABS: Glucose, Whole Blood 77 mg/dL (60-115)
--- NOTE | 2020-09-30 13:47 | PC.NURSE ---
CALLED TO GIVE REPORT STATED RN WAS AT LUNCH AND WILL CALL BACK
[2020-09-30 14:20] VITALS: BP 158/63; PULSE 88; RESP 17; TEMP 36.6; O2SAT 97
[2020-09-30] MEDS: LORazepam 1 MG TABLET PO (16:20)
--- NOTE | 2020-09-30 18:06 | PC.NURSE ---
Pt arrived to floor at 1630 with [facility] transport as escort. Pt stated I am hearing voices telling me to hurt myself and other people . Pt alert and oriented to person and place. Pt signed a CV in the pod. Pt reporting command hallucinations to harm herself and others. Pt oriented to unit, room, staff. Pt contracts for safety at this time. Pt on five minute checks.
[2020-09-30] MEDS: Insulin Lispro 100 UNIT/ML 3 ML VIAL 10 UNIT SUBCUT (18:54)
[2020-09-30] MEDS: Docusate Sodium 100 MG CAPSULE 200 MG PO (21:25)
[2020-09-30] MEDS: OLANZapine 10 MG TABLET 20 MG PO (21:26)
[2020-09-30 21:35] LABS: Glucose, Whole Blood 113 mg/dL (60-115)
[2020-10-01 05:22] VITALS: BP 117/84; PULSE 78; RESP 18; TEMP 36.2; O2SAT 95
[2020-10-01] MEDS: Omeprazole 20 MG CAPSULE.DR PO (05:50)
[2020-10-01 05:55] VITALS: BP 117/84; PULSE 78; RESP 18; TEMP 36.2; O2SAT 95
[2020-10-01 07:45] LABS: Estimated Average Glucose 203 mg/dL; Hemoglobin A1c % 8.7 %
[2020-10-01 07:54] LABS: Cholesterol 147 mg/dL; HDL Cholesterol 39 mg/dL; LDL Cholesterol Calculated 82 mg/dl; Triglycerides 132 mg/dL
[2020-10-01 08:10] LABS: Glucose, Whole Blood 182 mg/dL (60-115)
[2020-10-01] MEDS: Aspirin Enteric Coated 81 MG TABLET.DR PO (08:32)
[2020-10-01] MEDS: Insulin Lispro 100 UNIT/ML 3 ML VIAL 8 UNIT SUBCUT (08:32)
[2020-10-01] MEDS: Atorvastatin Calcium 80 MG TABLET PO (08:32)
[2020-10-01] MEDS: Insulin Glargine,Hum.rec.anlog 100 UNIT/ML 10 ML VIAL 24 UNIT SUBCUT (08:33)
[2020-10-01 08:34] VITALS: BP 130/63; PULSE 82
[2020-10-01] MEDS: Acetaminophen 325 MG TABLET 650 MG PO (08:34)
[2020-10-01] MEDS: metFORMIN HCl 500 MG TABLET PO ×2 (08:35→16:38)
[2020-10-01] MEDS: lamoTRIgine 100 MG TABLET 150 MG PO (08:35)
[2020-10-01] MEDS: Lidocaine 4 % Patch ADH..PATCH 1 PATCH TRANSDERMA (08:35)
[2020-10-01] MEDS: Multivitamin TABLET 1 TAB PO (08:35)
[2020-10-01] MEDS: Vilazodone HCL 20 MG TABLET PO (08:35)
[2020-10-01] MEDS: Pioglitazone HCL 30 MG TABLET PO (08:35)
[2020-10-01 09:08] VITALS: BP 130/63; PULSE 82; RESP 16; TEMP 36.7; O2SAT 98
--- NOTE | 2020-10-01 14:22 | MHC.CLN ---
NUTRITION PATIENT WITH DX DIABETES AND TAKES INSULIN. DISCUSSED BRIEFLY WITH PATIENT AND WILL CHANGE DIET TO DIABETIC 1800 KCAL. DIET PROVIDES 33.8 KCAL/KG CMW.
[2020-10-01] MEDS: LORazepam 1 MG TABLET PO (14:31)
[2020-10-01] MEDS: Nicotine 21 MG PATCH.TD24 TRANSDERMA (14:35)
--- NOTE | 2020-10-01 14:40 | HO.PSYADMNOT ---
HPI Chief Complaint: SI Sources of Information: patient interviewed, chart reviewed and crisis/core team assessment reviewed HPI Subjective Notes: Gant Warning and Conditional Voluntary Narrative: The patient is a 65-year-old [place] female, from her , mother of 12 children, currently unemployed, living by herself with good social support. The patient carries a diagnosis of a schizoaffective disorder bipolar type that she has cirrhosis secondary services such as pillowcase cleaner by [facility], visiting nurse and outpatient services. The current episode started 3 weeks ago when she noticed exacerbation of depressive symptoms elicited by depressed mood, anhedonia, lack of energy and feelings of hopelessness. The patient also complained of psychotic symptoms elicited by auditory hallucinations commanding to hurt herself, paranoia content recent suicidal ideation. The patient's nurse from [facility] reported no symptoms she was rushed to the emergency room where she was assessed by crisis and transferring to this facility for psychiatric stabilization. During the intake interview, the patient reported auditory hallucinations commanding to hurt herself by stabbing herself with a knife on his suicidal thoughts with a plan to overdose with her current medications. She was able to contract for safety in the facility. The patient is a very poor historian since she cannot remember exactly when she took her last medications. The patient signed herself into the facility seeking for help. Past Psychiatric History: The patient has more than 20 admissions into the hospital at least 14 admissions at [facility]. She carries a diagnosis of schizoaffective disorder bipolar type and she has case management services by [facility]. She is on the [facility] program. Medical Evaluation Reviewed: Yes [facility] Medical History (Updated 10/01/20 @ 14:49 by German Sorensen) CAD (coronary artery disease) Chronic kidney disease, stage 3 unspecified Dementia Depression with anxiety Dermatitis Dermatophytosis Diabetes mellitus with hyperglycemia Dyslipidemia Essential hypertension Joint pain PTSD (post-traumatic stress disorder) Schizoaffective disorder Smoking Type 2 diabetes mellitus with chronic kidney disease Type 2 diabetes mellitus with diabetic polyneuropathy Surgical History Hx of cataract surgery Hx of section Hx of tubal ligation Family History: Denies Diagnostics Vital Signs (24Hr): Vital Signs - 24 hr 10/01/20 05:22 10/01/20 05:55 10/01/20 08:34 Temperature 97.1 F 97.1 F Pulse Rate 78 78 82 Respiratory Rate 18 18 Blood Pressure 117/84 117/84 130/63 Pulse Oximetry 95 95 10/01/20 09:08 Temperature 98.0 F Pulse Rate 82 Respiratory Rate 16 Blood Pressure 130/63 Pulse Oximetry 98 Body Mass Index 33.2 Labs Results: 09/29/20 12:59 09/29/20 12:59 Labs: Laboratory Results - last 48 hr 09/29/20 09/29/20 09/29/20 14:15 16:34 20:34 POC Glucose 209 H 170 H Estimat Average Glucose Hemoglobin A1c % Triglycerides Cholesterol LDL Cholesterol, Calc HDL Cholesterol COVID-19 ([facility]) Negative COVID-19 Clin Com See Note 09/30/20 09/30/20 10/01/20 13:19 21:25 07:03 POC Glucose 77 113 Estimat Average Glucose 203 Hemoglobin A1c % 8.7 Triglycerides Cholesterol LDL Cholesterol, Calc HDL Cholesterol COVID-19 ([facility]) COVID-19 Clin Com 10/01/20 10/01/20 07:03 08:04 POC Glucose 182 H Estimat Average Glucose Hemoglobin A1c % Triglycerides 132 Cholesterol 147 D LDL Cholesterol, Calc 82 HDL Cholesterol 39 COVID-19 ([facility]) COVID-19 Clin Com Imaging Radiology Impressions: ITS Impressions Head CT 09/29/20 12:34 IMPRESSION: No acute intracranial process seen. Meds/Allergies Meds Home Medications Acetaminophen (Acetaminophen 325 Mg Tablet) 975 mg PO Q8H PRN PRN Reason: Pain, Mild (Pain Scale 1-3) Acetaminophen (Acetaminophen 325 Mg Tablet) 650 mg PO Q6H PRN PRN Reason: Headache/Pain Mild Scale (1-3) Last Admin: 10/01/20 08:34 Dose: 650 mg Documented by: Al Hydroxide/Mg Hydroxide (Magnesium Hydrox/Alum Hydrox 30 Ml Oral.Susp) 30 ml PO Q6H PRN PRN Reason: Heartburn/Nausea Al Hydroxide/Mg Hydroxide (Magnesium Hydrox/Alum Hydrox 30 Ml Oral.Susp) 30 ml PO Q6H PRN PRN Reason: Heartburn/Nausea Aspirin (Aspirin Enteric Coated 81 Mg Tablet.) 81 mg PO DAILY [facility] Last Admin: 10/01/20 08:32 Dose: 81 mg Documented by: Atorvastatin Calcium (Atorvastatin Calcium 80 Mg Tablet) 80 mg PO DAILY [facility] Last Admin: 10/01/20 08:32 Dose: 80 mg Documented by: Docusate Sodium (Docusate Sodium 100 Mg Capsule) 200 mg PO BEDTIME [facility] Last Admin: 09/30/20 21:25 Dose: 200 mg Documented by: Insulin Glargine (Insulin Glargine,Hum.Rec.Anlog 100 Unit/Ml 10 Ml Vial) 24 unit SUBCUT DAILY [facility] Last Admin: 10/01/20 08:33 Dose: 24 unit Documented by: Insulin Human Lispro (Insulin Lispro 100 Unit/Ml 3 Ml Vial) 8 unit SUBCUT DAILY@0730 [facility] Last Admin: 10/01/20 08:32 Dose: 8 unit Documented by: Insulin Human Lispro (Insulin Lispro 100 Unit/Ml 3 Ml Vial) 10 unit SUBCUT DAILY@1630 [facility] Last Admin: 09/30/20 18:54 Dose: 10 unit Documented by: Lamotrigine (Lamotrigine 100 Mg Tablet) 150 mg PO DAILY [facility] Last Admin: 10/01/20 08:35 Dose: 150 mg Documented by: Lidocaine (Lidocaine 4 % Patch Adh..Patch) 1 patch TRANSDERMA DAILY [facility] Last Admin: 10/01/20 08:35 Dose: 1 patch Documented by: Lisinopril (Lisinopril 10 Mg Tablet) 10 mg PO DAILY [facility]; Protocol Last Admin: 10/01/20 08:34 Dose: 10 mg Documented by: Lorazepam (Lorazepam 1 Mg Tablet) 1 mg PO TID PRN PRN Reason: Anxiety Last Admin: 10/01/20 14:31 Dose: 1 mg Documented by: Magnesium Hydroxide (Milk Of Magnesia 30 Ml Oral.Susp) 30 ml PO DAILY PRN PRN Reason: Constipation Magnesium Hydroxide (Milk Of Magnesia 30 Ml Oral.Susp) 30 ml PO DAILY PRN PRN Reason: Constipation Metformin HCl (Metformin Hcl 500 Mg Tablet) 500 mg PO BIDWM [facility] Last Admin: 10/01/20 08:35 Dose: 500 mg Documented by: Multivitamins/Vitamin C (Multivitamin Tablet) 1 tab PO DAILY [facility] Last Admin: 10/01/20 08:35 Dose: 1 tab Documented by: Nicotine (Nicotine 21 Mg Patch.Td24) 21 mg TRANSDERMA DAILY [facility] Last Admin: 10/01/20 14:35 Dose: 21 mg Documented by: Non-Formulary Medication (Diclofenac Sodium) 1 each TOPICAL DAILY PRN PRN Reason: Pain Olanzapine (Olanzapine 10 Mg Tablet) 20 mg PO BEDTIME [facility] Last Admin: 09/30/20 21:26 Dose: 20 mg Documented by: Omeprazole (Omeprazole 20 Mg Capsule.) 20 mg PO DAILY@0630 [facility] Last Admin: 10/01/20 05:50 Dose: 20 mg Documented by: Pharmacy Consult (Consult Rx Perform Med Rec) 1 each MISCELLANE ONCE PRN PRN Reason: Consult order Pioglitazone HCl (Pioglitazone Hcl 30 Mg Tablet) 30 mg PO DAILY [facility] Last Admin: 10/01/20 08:35 Dose: 30 mg Documented by: Vilazodone HCl (Vilazodone Hcl 20 Mg Tablet) 20 mg PO DAILY [facility] Last Admin: 10/01/20 08:35 Dose: 20 mg Documented by: Allergies Allergies Allergy/AdvReac Type Severity Reaction Status Date / Time duloxetine [Cymbalta] Allergy Unknown Unknown Verified 08/04/20 13:52 hydroxyzine Allergy Unknown unknown Verified 08/04/20 13:52 risperidone Allergy Unknown Unknown Verified 08/04/20 13:52 trazodone Allergy Unknown Unknown Verified 08/04/20 13:52 quetiapine [From SEROQUEL] AdvReac Severe Acute Unverified 08/04/20 13:52 Dystonic reaction Mental Status Exam Mental Status Exam Patient Appearance: Disheveled Patient Orientation: Person, Place and Situation Level of Consciousness: Awake and Follows Commands Patient Behavior: Appropriate Mood Description: Calm and Appropriate Affect Description: Withdrawn and Constricted Patient Cognition Impaired: No Ability to Follow Directions: Fair Speech Pattern: Clear (In French) Hallucinations: Auditory (Voices commanding to hurt herself by stabbing with a knife) Delusions: Paranoid Ideation Thought Process: Distracted, Evasive and Slowed Thinking Thought Content: positive for Loose Associations and positive for Thought Blocking Judgement: Fair Assessment & Plan Assessment & Plan (1) Schizoaffective disorder: Status: Acute Code(s): F25.9 - Schizoaffective disorder, unspecified (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: Status: Acute Qualifiers: Diabetes mellitus fdc insulin use: with fdc use Chronic kidney disease stage: stage 3 (moderate) Chronic kidney disease stage 3 subtype: unspecified whether 3a or 3b Qualified Code(s): E11.22 - Type 2 diabetes mellitus with diabetic chronic kidney disease; N18.30 - Chronic kidney disease, stage 3 unspecified; Z79.4 - detention (current) use of insulin Code(s): E11.22 - Type 2 diabetes mellitus with diabetic chronic kidney disease (3) Dyslipidemia: Status: Acute Code(s): E78.5 - Hyperlipidemia, unspecified (4) Chronic kidney disease, stage 3 unspecified: Status: Acute Qualifiers: Chronic kidney disease stage 3 subtype: unspecified whether 3a or 3b Qualified Code(s): N18.30 - Chronic kidney disease, stage 3 unspecified Code(s): N18.30 - Chronic kidney disease, stage 3 unspecified Assessment and Plan: The patient is an elderly female with schizoaffective disorder bipolar type with several admissions into the hospital for psychotic decompensation. The patient has several ancillary services such as VNA, case managing by [facility] is on outpatient services. She relapsed on depressive symptoms and psychotic symptoms elicited mildly lead to reducing agents, need to correct herself. The patient wants help and she is willing to continue treatment in the facility. Plan 1. Restart Viibryd, Zyprexa and other medications. 2. Gather collateral information Patient educated on: diagnosis Informed Consent: understands Reason for continued inpatient stay Substantial Risk for: harm to self, inability to function, rapid decompensation and med/psych decompensation
[2020-10-01] MEDS: Insulin Lispro 100 UNIT/ML 3 ML VIAL 10 UNIT SUBCUT (16:38)
[2020-10-01 18:00] VITALS: BP 138/59; PULSE 82; RESP 17; TEMP 36.4; O2SAT 92
[2020-10-01 20:16] LABS: Glucose, Whole Blood 153 mg/dL (60-115)
[2020-10-01] MEDS: OLANZapine 10 MG TABLET 20 MG PO (20:51)
[2020-10-01] MEDS: Docusate Sodium 100 MG CAPSULE 200 MG PO (20:52)
[2020-10-02] MEDS: Omeprazole 20 MG CAPSULE.DR PO (05:57)
[2020-10-02 06:00] VITALS: BP 98/57; PULSE 85; RESP 18; TEMP 36.5; O2SAT 93
[2020-10-02 07:00] VITALS: BMI 32.8
[2020-10-02 07:25] LABS: Anion Gap 14 (12-20); Blood Urea Nitrogen 31 mg/dL (9-16); Calcium 9.8 mg/dL (8.4-10.2); Carbon Dioxide 23 mmol/L (22-29); Chloride 105 mmol/L (96-108); Creatinine Clr Calc Pharmacy 43.1; Estimated Glomerular Filt Rate 45; Glucose Fasting 210 mg/dL (60-99); Potassium 4.7 mmol/L (3.3-5.1); Sodium 137 mmol/L (135-145)
[2020-10-02 07:49] LABS: Estimated Average Glucose 203 mg/dL; Hemoglobin A1c % 8.7 %
[2020-10-02] MEDS: lamoTRIgine 100 MG TABLET 150 MG PO (08:08)
[2020-10-02] MEDS: Insulin Lispro 100 UNIT/ML 3 ML VIAL 8 UNIT SUBCUT (08:08)
[2020-10-02] MEDS: Atorvastatin Calcium 80 MG TABLET PO (08:09)
[2020-10-02 08:10] VITALS: BP 104/56; PULSE 93
[2020-10-02] MEDS: metFORMIN HCl 500 MG TABLET PO ×2 (08:10→16:58)
[2020-10-02] MEDS: Pioglitazone HCL 30 MG TABLET PO (08:11)
[2020-10-02] MEDS: Vilazodone HCL 20 MG TABLET PO (08:12)
[2020-10-02] MEDS: Aspirin Enteric Coated 81 MG TABLET.DR PO (08:12)
[2020-10-02] MEDS: Multivitamin TABLET 1 TAB PO (08:13)
[2020-10-02] MEDS: Lidocaine 4 % Patch ADH..PATCH 1 PATCH TRANSDERMA (08:15)
[2020-10-02] MEDS: Nicotine 21 MG PATCH.TD24 TRANSDERMA (08:17)
[2020-10-02 08:23] LABS: Glucose, Whole Blood 200 mg/dL (60-115)
[2020-10-02] MEDS: Insulin Glargine,Hum.rec.anlog 100 UNIT/ML 10 ML VIAL 24 UNIT SUBCUT (09:40)
[2020-10-02 11:42] LABS: Glucose, Whole Blood 170 mg/dL (60-115)
--- NOTE | 2020-10-02 14:43 | HO.PSYCHPN ---
Subjective Subjective Date of Service: 10/02/20 Reason For Visit: SI Interim History: The patient reported feeling better, she slept well, admitted sporadic AH mostly at night. We discussed options and she agreed to increase it up to 25 mg Medication Compliance: Yes Side effects from medications: No Attending Groups: Intermittent Review of Systems Acute medical concerns: No Medical Review of Systems: unchanged Mental Status Exam Mental Status Exam Patient Appearance: Well Grooomed Patient Orientation: Person, Place and Situation Level of Consciousness: Awake and Appropriate Patient Behavior: Cooperative Mood Description: Calm and Constricted Affect Description: Constricted and Depressed Patient Cognition Impaired: Yes Ability to Follow Directions: Good Speech Pattern: Clear Hallucinations: Auditory Delusions: Paranoid Ideation Thought Process: Slowed Thinking Thought Content: positive for Circumstantial and positive for Preoccupation Judgement: Fair Diagnostics Vital Signs (24Hr): Vital Signs - 24 hr 10/01/20 18:00 10/02/20 06:00 10/02/20 08:10 Temperature 97.5 F 97.7 F Pulse Rate 82 85 93 Respiratory Rate 17 18 Blood Pressure 138/59 L 98/57 L 104/56 L Pulse Oximetry 92 93 Body Mass Index 32.8 Labs Results: 09/29/20 12:59 10/02/20 06:33 Labs: Laboratory Results - last 48 hr 09/30/20 10/01/20 10/01/20 21:25 07:03 07:03 Sodium Potassium Chloride Carbon Dioxide Anion Gap BUN Creatinine Estim Creat Clear Calc Estimated GFR POC Glucose 113 Fasting Glucose Estimat Average Glucose 203 Hemoglobin A1c % 8.7 Calcium Triglycerides 132 Cholesterol 147 D LDL Cholesterol, Calc 82 HDL Cholesterol 39 10/01/20 10/01/20 10/02/20 08:04 20:12 06:33 Sodium 137 Potassium 4.7 Chloride 105 Carbon Dioxide 23 Anion Gap 14 BUN 31 H D Creatinine 1.21 Estim Creat Clear Calc 43.1 Estimated GFR 45 POC Glucose 182 H 153 H Fasting Glucose 210 H Estimat Average Glucose Hemoglobin A1c % Calcium 9.8 Triglycerides Cholesterol LDL Cholesterol, Calc HDL Cholesterol 10/02/20 10/02/20 10/02/20 06:33 08:04 11:38 Sodium Potassium Chloride Carbon Dioxide Anion Gap BUN Creatinine Estim Creat Clear Calc Estimated GFR POC Glucose 200 H 170 H Fasting Glucose Estimat Average Glucose 203 Hemoglobin A1c % 8.7 Calcium Triglycerides Cholesterol LDL Cholesterol, Calc HDL Cholesterol Imaging Radiology Impressions: ITS Impressions Head CT 09/29/20 12:34 IMPRESSION: No acute intracranial process seen. Medications Medications Current Medications Generic Name Dose Route Start Last Admin Trade Name Arpan PRN Reason Stop Dose Admin Acetaminophen 975 mg 09/29/20 19:53 Acetaminophen 325 Mg Tablet PO Q8H PRN Pain, Mild (Pain Scale 1-3) Acetaminophen 650 mg 09/30/20 18:51 10/01/20 08:34 Acetaminophen 325 Mg Tablet PO 650 mg Q6H PRN Administration Headache/Pain Mild Scale (1-3) Al Hydroxide/Mg Hydroxide 30 ml 09/30/20 18:51 Magnesium Hydrox/Alum Hydrox 30 Ml Oral.Susp PO Q6H PRN Heartburn/Nausea Al Hydroxide/Mg Hydroxide 30 ml 09/30/20 20:34 Magnesium Hydrox/Alum Hydrox 30 Ml Oral.Susp PO Q6H PRN Heartburn/Nausea Aspirin 81 mg 09/30/20 09:00 10/02/20 08:12 Aspirin Enteric Coated 81 Mg Tablet.Dr PO 81 mg DAILY [facility] Administration Atorvastatin Calcium 80 mg 09/30/20 09:00 10/02/20 08:09 Atorvastatin Calcium 80 Mg Tablet PO 80 mg DAILY [facility] Administration Docusate Sodium 200 mg 09/29/20 21:00 10/01/20 20:52 Docusate Sodium 100 Mg Capsule PO 200 mg BEDTIME [facility] Administration Insulin Glargine 24 unit 09/30/20 09:00 10/02/20 09:40 Insulin Glargine,Hum.Rec.Anlog 100 Unit/Ml 10 Ml Vial SUBCUT 24 unit DAILY [facility] Administration Insulin Human Lispro 8 unit 09/30/20 07:30 10/02/20 08:08 Insulin Lispro 100 Unit/Ml 3 Ml Vial SUBCUT 8 unit DAILY@0730 [facility] Administration Insulin Human Lispro 10 unit 09/30/20 16:30 10/01/20 16:38 Insulin Lispro 100 Unit/Ml 3 Ml Vial SUBCUT 10 unit DAILY@1630 [facility] Administration Lamotrigine 150 mg 09/30/20 09:00 10/02/20 08:08 Lamotrigine 100 Mg Tablet PO 150 mg DAILY [facility] Administration Lidocaine 1 patch 09/30/20 09:00 10/02/20 08:15 Lidocaine 4 % Patch Adh..Patch TRANSDERMA 1 patch DAILY [facility] Administration Lisinopril 10 mg 09/30/20 09:00 10/02/20 08:10 Lisinopril 10 Mg Tablet PO 10 mg DAILY [facility] Administration Protocol Lorazepam 1 mg 09/29/20 19:13 10/01/20 14:31 Lorazepam 1 Mg Tablet PO 1 mg TID PRN Administration Anxiety Magnesium Hydroxide 30 ml 09/30/20 18:51 Milk Of Magnesia 30 Ml Oral.Susp PO DAILY PRN Constipation Magnesium Hydroxide 30 ml 09/30/20 20:34 Milk Of Magnesia 30 Ml Oral.Susp PO DAILY PRN Constipation Metformin HCl 500 mg 09/30/20 08:00 10/02/20 08:10 Metformin Hcl 500 Mg Tablet PO 500 mg BIDWM [facility] Administration Multivitamins/Vitamin C 1 tab 09/30/20 09:00 10/02/20 08:13 Multivitamin Tablet PO 1 tab DAILY [facility] Administration Nicotine 21 mg 10/01/20 12:45 10/02/20 08:17 Nicotine 21 Mg Patch.Td24 TRANSDERMA 21 mg DAILY [facility] Administration Non-Formulary Medication 1 each 09/30/20 17:48 Diclofenac Sodium TOPICAL DAILY PRN Pain Olanzapine 25 mg 10/02/20 21:00 Olanzapine 5 Mg Tablet PO BEDTIME [facility] Omeprazole 20 mg 09/30/20 06:30 10/02/20 05:57 Omeprazole 20 Mg Capsule. PO 20 mg DAILY@0630 [facility] Administration Pharmacy Consult 1 each 09/29/20 13:34 Consult Rx Perform Med Rec MISCELLANE ONCE PRN Consult order Pioglitazone HCl 30 mg 09/30/20 09:00 10/02/20 08:11 Pioglitazone Hcl 30 Mg Tablet PO 30 mg DAILY [facility] Administration Vilazodone HCl 20 mg 09/30/20 09:00 10/02/20 08:12 Vilazodone Hcl 20 Mg Tablet PO 20 mg DAILY [facility] Administration Allergies Allergies Allergy/AdvReac Type Severity Reaction Status Date / Time duloxetine [Cymbalta] Allergy Unknown Unknown Verified 08/04/20 13:52 hydroxyzine Allergy Unknown unknown Verified 08/04/20 13:52 risperidone Allergy Unknown Unknown Verified 08/04/20 13:52 trazodone Allergy Unknown Unknown Verified 08/04/20 13:52 quetiapine [From SEROQUEL] AdvReac Severe Acute Unverified 08/04/20 13:52 Dystonic reaction Assessment & Plan Assessment & Plan (1) Schizoaffective disorder: Status: Acute Code(s): F25.9 - Schizoaffective disorder, unspecified (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: Qualifiers: Diabetes mellitus mcc insulin use: with [employer] use Chronic kidney disease stage: stage 3 (moderate) Chronic kidney disease stage 3 subtype: unspecified whether 3a or 3b Qualified Code(s): E11.22 - Type 2 diabetes mellitus with diabetic chronic kidney disease; N18.30 - Chronic kidney disease, stage 3 unspecified; Z79.4 - MCC (current) use of insulin Status: Acute Code(s): E11.22 - Type 2 diabetes mellitus with diabetic chronic kidney disease (3) Dyslipidemia: Status: Acute Code(s): E78.5 - Hyperlipidemia, unspecified (4) Chronic kidney disease, stage 3 unspecified: Qualifiers: Chronic kidney disease stage 3 subtype: unspecified whether 3a or 3b Qualified Code(s): N18.30 - Chronic kidney disease, stage 3 unspecified Status: Acute Code(s): N18.30 - Chronic kidney disease, stage 3 unspecified Assessment and Plan: The patient is an elderly female with schizoaffective disorder bipolar type with several admissions into the hospital for psychotic decompensation. The patient has several ancillary services such as VNA, case managing by [facility] is on outpatient services. She relapsed on depressive symptoms and psychotic symptoms elicited by AH commanding to hurt herself. The patient wants help and she is willing to continue treatment in the facility. Plan 1. Restart Viibryd and other medications. 2. Increase Zyprexa up to 25 mg po qhs 3. Gather collateral information Greater than 50% of the session was spent on counseling and/or coordination of care Patient educated on: diagnosis and therapeutic strategies Informed Consent: understands Reason for contiued inpatient stay Substantial Risk for: harm to self, inability to function, rapid decompensation and med/psych decompensation
[2020-10-02] MEDS: Insulin Lispro 100 UNIT/ML 3 ML VIAL 10 UNIT SUBCUT (16:57)
[2020-10-02 17:10] LABS: Glucose, Whole Blood 261 mg/dL (60-115)
[2020-10-02 18:53] VITALS: BP 132/61; PULSE 87; RESP 17; TEMP 36.3; O2SAT 98
[2020-10-02] MEDS: Acetaminophen 325 MG TABLET 650 MG PO (19:44)
[2020-10-02] MEDS: Docusate Sodium 100 MG CAPSULE 200 MG PO (20:02)
[2020-10-02] MEDS: OLANZapine 5 MG TABLET 25 MG PO (20:02)
[2020-10-02 20:26] LABS: Glucose, Whole Blood 176 mg/dL (60-115)
[2020-10-03 06:00] VITALS: BP 102/53; PULSE 85; RESP 16; TEMP 36.5; O2SAT 96
[2020-10-03] MEDS: Omeprazole 20 MG CAPSULE.DR PO (06:38)
[2020-10-03] MEDS: Multivitamin TABLET 1 TAB PO (08:15)
[2020-10-03] MEDS: Vilazodone HCL 20 MG TABLET PO (08:15)
[2020-10-03] MEDS: metFORMIN HCl 500 MG TABLET PO ×2 (08:15→16:36)
[2020-10-03] MEDS: lamoTRIgine 100 MG TABLET 150 MG PO (08:15)
[2020-10-03] MEDS: Aspirin Enteric Coated 81 MG TABLET.DR PO (08:15)
[2020-10-03] MEDS: Pioglitazone HCL 30 MG TABLET PO (08:15)
[2020-10-03] MEDS: Insulin Lispro 100 UNIT/ML 3 ML VIAL 8 UNIT SUBCUT (08:16)
[2020-10-03] MEDS: Nicotine 21 MG PATCH.TD24 TRANSDERMA (08:16)
[2020-10-03] MEDS: Lidocaine 4 % Patch ADH..PATCH 1 PATCH TRANSDERMA (08:16)
[2020-10-03] MEDS: Insulin Glargine,Hum.rec.anlog 100 UNIT/ML 10 ML VIAL 24 UNIT SUBCUT (08:17)
[2020-10-03] MEDS: Atorvastatin Calcium 80 MG TABLET PO (08:17)
[2020-10-03 10:29] LABS: Glucose, Whole Blood 229 mg/dL (60-115)
--- NOTE | 2020-10-03 12:03 | HO.PSYCHPN ---
Subjective Subjective Date of Service: 10/03/20 Reason For Visit: SI Interim History: The patient reported some improvement of her auditory hallucinations. She was able to participate on some groups Review of Systems Acute medical concerns: No Medical Review of Systems: unchanged Mental Status Exam Mental Status Exam Patient Appearance: Well Grooomed Patient Orientation: Person, Place, Time and Situation Level of Consciousness: Awake and Appropriate Patient Behavior: Guarded and Cooperative Mood Description: Suspicious Affect Description: Constricted Patient Cognition Impaired: Yes Ability to Follow Directions: Good Speech Pattern: Clear Hallucinations: Auditory Delusions: Paranoid Ideation Thought Process: Linear Thought Content: positive for [place], positive for Circumstantial and positive for Preoccupation Judgement: Fair Diagnostics Vital Signs (24Hr): Vital Signs - 24 hr 10/02/20 18:53 10/03/20 06:00 Temperature 97.4 F 97.7 F Pulse Rate 87 85 Respiratory Rate 17 16 Blood Pressure 132/61 102/53 L Pulse Oximetry 98 96 Body Mass Index 32.8 Labs Results: 09/29/20 12:59 10/02/20 06:33 Labs: Laboratory Results - last 48 hr 10/01/20 10/02/20 10/02/20 20:12 06:33 06:33 Sodium 137 Potassium 4.7 Chloride 105 Carbon Dioxide 23 Anion Gap 14 BUN 31 H D Creatinine 1.21 Estim Creat Clear Calc 43.1 Estimated GFR 45 POC Glucose 153 H Fasting Glucose 210 H Estimat Average Glucose 203 Hemoglobin A1c % 8.7 Calcium 9.8 10/02/20 10/02/20 10/02/20 08:04 11:38 17:04 Sodium Potassium Chloride Carbon Dioxide Anion Gap BUN Creatinine Estim Creat Clear Calc Estimated GFR POC Glucose 200 H 170 H 261 H Fasting Glucose Estimat Average Glucose Hemoglobin A1c % Calcium 10/02/20 10/03/20 20:21 08:02 Sodium Potassium Chloride Carbon Dioxide Anion Gap BUN Creatinine Estim Creat Clear Calc Estimated GFR POC Glucose 176 H 229 H Fasting Glucose Estimat Average Glucose Hemoglobin A1c % Calcium Imaging Radiology Impressions: ITS Impressions Head CT 09/29/20 12:34 IMPRESSION: No acute intracranial process seen. Medications Medications Current Medications Generic Name Dose Route Start Last Admin Trade Name Freq PRN Reason Stop Dose Admin Acetaminophen 975 mg 09/29/20 19:53 Acetaminophen 325 Mg Tablet PO Q8H PRN Pain, Mild (Pain Scale 1-3) Acetaminophen 650 mg 09/30/20 18:51 10/02/20 19:44 Acetaminophen 325 Mg Tablet PO 650 mg Q6H PRN Administration Headache/Pain Mild Scale (1-3) Al Hydroxide/Mg Hydroxide 30 ml 09/30/20 18:51 Magnesium Hydrox/Alum Hydrox 30 Ml Oral.Susp PO Q6H PRN Heartburn/Nausea Al Hydroxide/Mg Hydroxide 30 ml 09/30/20 20:34 Magnesium Hydrox/Alum Hydrox 30 Ml Oral.Susp PO Q6H PRN Heartburn/Nausea Aspirin 81 mg 09/30/20 09:00 10/03/20 08:15 Aspirin Enteric Coated 81 Mg Tablet.Dr PO 81 mg DAILY DELMER Administration Atorvastatin Calcium 80 mg 09/30/20 09:00 10/03/20 08:17 Atorvastatin Calcium 80 Mg Tablet PO 80 mg DAILY DELMER Administration Docusate Sodium 200 mg 09/29/20 21:00 10/02/20 20:02 Docusate Sodium 100 Mg Capsule PO 200 mg BEDTIME DELMER Administration Insulin Glargine 24 unit 09/30/20 09:00 10/03/20 08:17 Insulin Glargine,Hum.Rec.Anlog 100 Unit/Ml 10 Ml Vial SUBCUT 24 unit DAILY [facility] Administration Insulin Human Lispro 8 unit 09/30/20 07:30 10/03/20 08:16 Insulin Lispro 100 Unit/Ml 3 Ml Vial SUBCUT 8 unit DAILY@0730 DELMER Administration Insulin Human Lispro 10 unit 09/30/20 16:30 10/02/20 16:57 Insulin Lispro 100 Unit/Ml 3 Ml Vial SUBCUT 10 unit DAILY@1630 DELMER Administration Lamotrigine 150 mg 09/30/20 09:00 10/03/20 08:15 Lamotrigine 100 Mg Tablet PO 150 mg DAILY DELMER Administration Lidocaine 1 patch 09/30/20 09:00 10/03/20 08:16 Lidocaine 4 % Patch Adh..Patch TRANSDERMA 1 patch DAILY [facility] Administration Lisinopril 10 mg 09/30/20 09:00 10/03/20 08:15 Lisinopril 10 Mg Tablet PO 10 mg DAILY DELMER Administration Protocol Lorazepam 1 mg 09/29/20 19:13 10/01/20 14:31 Lorazepam 1 Mg Tablet PO 1 mg TID PRN Administration Anxiety Magnesium Hydroxide 30 ml 09/30/20 18:51 Milk Of Magnesia 30 Ml Oral.Susp PO DAILY PRN Constipation Magnesium Hydroxide 30 ml 09/30/20 20:34 Milk Of Magnesia 30 Ml Oral.Susp PO DAILY PRN Constipation Metformin HCl 500 mg 09/30/20 08:00 10/03/20 08:15 Metformin Hcl 500 Mg Tablet PO 500 mg BIDWM DELMER Administration Multivitamins/Vitamin C 1 tab 09/30/20 09:00 10/03/20 08:15 Multivitamin Tablet PO 1 tab DAILY DELMER Administration Nicotine 21 mg 10/01/20 12:45 10/03/20 08:16 Nicotine 21 Mg Patch.Td24 TRANSDERMA 21 mg DAILY DELMER Administration Olanzapine 25 mg 10/02/20 21:00 10/02/20 20:02 Olanzapine 5 Mg Tablet PO 25 mg BEDTIME DELMER Administration Omeprazole 20 mg 09/30/20 06:30 10/03/20 06:38 Omeprazole 20 Mg Capsule. PO 20 mg DAILY@0630 DELMER Administration Pharmacy Consult 1 each 09/29/20 13:34 Consult Rx Perform Med Rec MISCELLANE ONCE PRN Consult order Pioglitazone HCl 30 mg 09/30/20 09:00 10/03/20 08:15 Pioglitazone Hcl 30 Mg Tablet PO 30 mg DAILY DELMER Administration Vilazodone HCl 20 mg 09/30/20 09:00 10/03/20 08:15 Vilazodone Hcl 20 Mg Tablet PO 20 mg DAILY DELMER Administration Allergies Allergies Allergy/AdvReac Type Severity Reaction Status Date / Time duloxetine [Cymbalta] Allergy Unknown Unknown Verified 08/04/20 13:52 hydroxyzine Allergy Unknown unknown Verified 08/04/20 13:52 risperidone Allergy Unknown Unknown Verified 08/04/20 13:52 trazodone Allergy Unknown Unknown Verified 08/04/20 13:52 quetiapine [From SEROQUEL] AdvReac Severe Acute Unverified 08/04/20 13:52 Dystonic reaction Assessment & Plan Assessment & Plan (1) Schizoaffective disorder: Status: Acute Code(s): F25.9 - Schizoaffective disorder, unspecified (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: Qualifiers: Diabetes mellitus termite exterminator helper insulin use: with termite exterminator helper use Chronic kidney disease stage: stage 3 (moderate) Chronic kidney disease stage 3 subtype: unspecified whether 3a or 3b Qualified Code(s): E11.22 - Type 2 diabetes mellitus with diabetic chronic kidney disease; N18.30 - Chronic kidney disease, stage 3 unspecified; Z79.4 - laborer marine terminal (current) use of insulin Status: Acute Code(s): E11.22 - Type 2 diabetes mellitus with diabetic chronic kidney disease (3) Dyslipidemia: Status: Acute Code(s): E78.5 - Hyperlipidemia, unspecified (4) Chronic kidney disease, stage 3 unspecified: Qualifiers: Chronic kidney disease stage 3 subtype: unspecified whether 3a or 3b Qualified Code(s): N18.30 - Chronic kidney disease, stage 3 unspecified Status: Acute Code(s): N18.30 - Chronic kidney disease, stage 3 unspecified Assessment and Plan: The patient is an elderly female with schizoaffective disorder bipolar type with several admissions into the hospital for psychotic decompensation. The patient has several ancillary services such as VNA, case managing by [facility] is on outpatient services. She relapsed on depressive symptoms and psychotic symptoms elicited by AH commanding to hurt herself. The patient wants help and she is willing to continue treatment in the facility. Plan 1. Keep same treatment. 2. Gather collateral information Greater than 50% of the session was spent on counseling and/or coordination of care Reason for contiued inpatient stay Substantial Risk for: harm to self, inability to function, rapid decompensation and med/psych decompensation
[2020-10-03 16:31] LABS: Glucose, Whole Blood 187 mg/dL (60-115)
[2020-10-03] MEDS: Acetaminophen 325 MG TABLET 975 MG PO (16:35)
[2020-10-03] MEDS: Insulin Lispro 100 UNIT/ML 3 ML VIAL 10 UNIT SUBCUT (16:36)
[2020-10-03 17:53] VITALS: BP 127/63; PULSE 85; RESP 17; TEMP 36.6; O2SAT 99
[2020-10-03] MEDS: Docusate Sodium 100 MG CAPSULE 200 MG PO (19:54)
[2020-10-03] MEDS: OLANZapine 5 MG TABLET 25 MG PO (19:59)
[2020-10-04 06:00] VITALS: BP 102/54; PULSE 78; TEMP 36.4; O2SAT 97
[2020-10-04] MEDS: Omeprazole 20 MG CAPSULE.DR PO (06:34)
[2020-10-04 06:48] LABS: Glucose, Whole Blood 217 mg/dL (60-115)
[2020-10-04] MEDS: Insulin Glargine,Hum.rec.anlog 100 UNIT/ML 10 ML VIAL 24 UNIT SUBCUT (09:12)
[2020-10-04] MEDS: Insulin Lispro 100 UNIT/ML 3 ML VIAL 8 UNIT SUBCUT (09:12)
[2020-10-04] MEDS: Nicotine 21 MG PATCH.TD24 TRANSDERMA (09:13)
[2020-10-04] MEDS: Lidocaine 4 % Patch ADH..PATCH 1 PATCH TRANSDERMA (09:13)
[2020-10-04 09:14] VITALS: PULSE 81
[2020-10-04] MEDS: Atorvastatin Calcium 80 MG TABLET PO (09:14)
[2020-10-04] MEDS: metFORMIN HCl 500 MG TABLET PO ×2 (09:14→17:39)
[2020-10-04] MEDS: lamoTRIgine 100 MG TABLET 150 MG PO (09:14)
[2020-10-04] MEDS: Multivitamin TABLET 1 TAB PO (09:14)
[2020-10-04] MEDS: Pioglitazone HCL 30 MG TABLET PO (09:14)
[2020-10-04] MEDS: Vilazodone HCL 20 MG TABLET PO (09:14)
[2020-10-04] MEDS: Aspirin Enteric Coated 81 MG TABLET.DR PO (09:15)
--- NOTE | 2020-10-04 09:43 | HO.PSYCHPN ---
Subjective Subjective Date of Service: 10/04/20 Reason For Visit: SI Interim History: pt reports CAH continue but feels they are manageable currently and can seek out staff support as needed. she has no other questions or concerns for MD. per staff, CAH remain but diminished from admission. feeling safe inpatient. vague SI. no other notable events or behaviors. Mental Status Exam Mental Status Exam Narrative: lying in bed under sheets. cooperative. PMR. speech terse, decr amount, incr latency. thoughts linear and logical in brief interaction. affect constricted. no SI/HI/VH expressed. + CAH. Diagnostics Vital Signs (24Hr): Vital Signs - 24 hr 10/03/20 17:53 10/04/20 06:00 10/04/20 09:14 Temperature 97.8 F 97.5 F Pulse Rate 85 78 81 Respiratory Rate 17 Blood Pressure 127/63 102/54 L Pulse Oximetry 99 97 Body Mass Index 32.8 Labs Results: 09/29/20 12:59 10/02/20 06:33 Labs: Laboratory Results - last 48 hr 10/02/20 10/02/20 10/02/20 11:38 17:04 20:21 POC Glucose 170 H 261 H 176 H 10/03/20 10/03/20 10/04/20 08:02 16:27 06:39 POC Glucose 229 H 187 H 217 H Imaging Radiology Impressions: ITS Impressions Head CT 09/29/20 12:34 IMPRESSION: No acute intracranial process seen. Medications Medications Current Medications Generic Name Dose Route Start Last Admin Trade Name Freq PRN Reason Stop Dose Admin Acetaminophen 975 mg 09/29/20 19:53 10/03/20 16:35 Acetaminophen 325 Mg Tablet PO 975 mg Q8H PRN Administration Pain, Mild (Pain Scale 1-3) Acetaminophen 650 mg 09/30/20 18:51 10/02/20 19:44 Acetaminophen 325 Mg Tablet PO 650 mg Q6H PRN Administration Headache/Pain Mild Scale (1-3) Al Hydroxide/Mg Hydroxide 30 ml 09/30/20 18:51 Magnesium Hydrox/Alum Hydrox 30 Ml Oral.Susp PO Q6H PRN Heartburn/Nausea Al Hydroxide/Mg Hydroxide 30 ml 09/30/20 20:34 Magnesium Hydrox/Alum Hydrox 30 Ml Oral.Susp PO Q6H PRN Heartburn/Nausea Aspirin 81 mg 09/30/20 09:00 10/04/20 09:15 Aspirin Enteric Coated 81 Mg Tablet.Dr PO 81 mg DAILY DELMER Administration Atorvastatin Calcium 80 mg 09/30/20 09:00 10/04/20 09:14 Atorvastatin Calcium 80 Mg Tablet PO 80 mg DAILY DELMER Administration Docusate Sodium 200 mg 09/29/20 21:00 10/03/20 19:54 Docusate Sodium 100 Mg Capsule PO 200 mg BEDTIME DELMER Administration Insulin Glargine 24 unit 09/30/20 09:00 10/04/20 09:12 Insulin Glargine,Hum.Rec.Anlog 100 Unit/Ml 10 Ml Vial SUBCUT 24 unit DAILY DELMER Administration Insulin Human Lispro 8 unit 09/30/20 07:30 10/04/20 09:12 Insulin Lispro 100 Unit/Ml 3 Ml Vial SUBCUT 8 unit DAILY@0730 DELMER Administration Insulin Human Lispro 10 unit 09/30/20 16:30 10/03/20 16:36 Insulin Lispro 100 Unit/Ml 3 Ml Vial SUBCUT 10 unit DAILY@1630 DELMER Administration Lamotrigine 150 mg 09/30/20 09:00 10/04/20 09:14 Lamotrigine 100 Mg Tablet PO 150 mg DAILY DELMER Administration Lidocaine 1 patch 09/30/20 09:00 10/04/20 09:13 Lidocaine 4 % Patch Adh..Patch TRANSDERMA 1 patch DAILY DELMER Administration Lisinopril 10 mg 09/30/20 09:00 10/04/20 09:14 Lisinopril 10 Mg Tablet PO 10 mg DAILY DELMER Administration Protocol Lorazepam 1 mg 09/29/20 19:13 10/01/20 14:31 Lorazepam 1 Mg Tablet PO 1 mg TID PRN Administration Anxiety Magnesium Hydroxide 30 ml 09/30/20 18:51 Milk Of Magnesia 30 Ml Oral.Susp PO DAILY PRN Constipation Magnesium Hydroxide 30 ml 09/30/20 20:34 Milk Of Magnesia 30 Ml Oral.Susp PO DAILY PRN Constipation Metformin HCl 500 mg 09/30/20 08:00 10/04/20 09:14 Metformin Hcl 500 Mg Tablet PO 500 mg BIDWM DELMER Administration Multivitamins/Vitamin C 1 tab 09/30/20 09:00 10/04/20 09:14 Multivitamin Tablet PO 1 tab DAILY DELMER Administration Nicotine 21 mg 10/01/20 12:45 10/04/20 09:13 Nicotine 21 Mg Patch.Td24 TRANSDERMA 21 mg DAILY DELMER Administration Olanzapine 25 mg 10/02/20 21:00 10/03/20 19:59 Olanzapine 5 Mg Tablet PO 25 mg BEDTIME DELMER Administration Omeprazole 20 mg 09/30/20 06:30 10/04/20 06:34 Omeprazole 20 Mg Capsule. PO 20 mg DAILY@0630 DELMER Administration Pharmacy Consult 1 each 09/29/20 13:34 Consult Rx Perform Med Rec MISCELLANE ONCE PRN Consult order Pioglitazone HCl 30 mg 09/30/20 09:00 10/04/20 09:14 Pioglitazone Hcl 30 Mg Tablet PO 30 mg DAILY DELMER Administration Vilazodone HCl 20 mg 09/30/20 09:00 10/04/20 09:14 Vilazodone Hcl 20 Mg Tablet PO 20 mg DAILY DELMER Administration Allergies Allergies Allergy/AdvReac Type Severity Reaction Status Date / Time duloxetine [Cymbalta] Allergy Unknown Unknown Verified 08/04/20 13:52 hydroxyzine Allergy Unknown unknown Verified 08/04/20 13:52 risperidone Allergy Unknown Unknown Verified 08/04/20 13:52 trazodone Allergy Unknown Unknown Verified 08/04/20 13:52 quetiapine [From SEROQUEL] AdvReac Severe Acute Unverified 08/04/20 13:52 Dystonic reaction Assessment & Plan Assessment & Plan (1) Schizoaffective disorder: Status: Acute Code(s): F25.9 - Schizoaffective disorder, unspecified (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: Qualifiers: Diabetes mellitus mcfp insulin use: with long term acute care registered nurse use Chronic kidney disease stage: stage 3 (moderate) Chronic kidney disease stage 3 subtype: unspecified whether 3a or 3b Qualified Code(s): E11.22 - Type 2 diabetes mellitus with diabetic chronic kidney disease; N18.30 - Chronic kidney disease, stage 3 unspecified; Z79.4 - long term acute care registered nurse (current) use of insulin Status: Acute Code(s): E11.22 - Type 2 diabetes mellitus with diabetic chronic kidney disease (3) Dyslipidemia: Status: Acute Code(s): E78.5 - Hyperlipidemia, unspecified (4) Chronic kidney disease, stage 3 unspecified: Qualifiers: Chronic kidney disease stage 3 subtype: unspecified whether 3a or 3b Qualified Code(s): N18.30 - Chronic kidney disease, stage 3 unspecified Status: Acute Code(s): N18.30 - Chronic kidney disease, stage 3 unspecified Assessment and Plan: The patient is an elderly female with schizoaffective disorder bipolar type with several admissions into the hospital for psychotic decompensation. The patient has several ancillary services such as VNA, case managing by [facility] is on outpatient services. She relapsed on depressive symptoms and psychotic symptoms elicited by AH commanding to hurt herself. The patient wants help and she is willing to continue treatment in the facility. Plan 1. Keep same treatment. 2. Gather collateral information Greater than 50% of the session was spent on counseling and/or coordination of care Reason for contiued inpatient stay Substantial Risk for: harm to self
[2020-10-04 12:08] LABS: Glucose, Whole Blood 171 mg/dL (60-115)
[2020-10-04 12:30] VITALS: BP 143/65; PULSE 86; RESP 16; TEMP 36.8; O2SAT 99
--- NOTE | 2020-10-04 12:32 | PC.NURSE ---
Pt eating lunch in common area, suddenly reports feeling dizzy, not feeling good . Vital signs: pulse:86; O2: 99%; BP:143/65; R:16. Temp: wnl. POC was 171. Pt stated she feels like high anxiety was the reason for feeling not good . Pt assisted back to room to rest in bed. Will continue to monitor.
[2020-10-04] MEDS: Insulin Lispro 100 UNIT/ML 3 ML VIAL 10 UNIT SUBCUT (17:38)
[2020-10-04 18:00] VITALS: BP 132/83; PULSE 81; RESP 17; TEMP 36.6; O2SAT 99
[2020-10-04] MEDS: Docusate Sodium 100 MG CAPSULE 200 MG PO (21:02)
[2020-10-04] MEDS: OLANZapine 5 MG TABLET 25 MG PO (21:03)
[2020-10-04 21:15] LABS: Glucose, Whole Blood 174 mg/dL (60-115)
[2020-10-05 06:00] VITALS: BP 120/55; PULSE 74; RESP 17; TEMP 36.1; O2SAT 96
[2020-10-05] MEDS: Omeprazole 20 MG CAPSULE.DR PO (06:14)
[2020-10-05] MEDS: Insulin Lispro 100 UNIT/ML 3 ML VIAL 8 UNIT SUBCUT (06:25)
[2020-10-05 06:26] LABS: Glucose, Whole Blood 227 mg/dL (60-115)
[2020-10-05] MEDS: Vilazodone HCL 20 MG TABLET PO (08:02)
[2020-10-05] MEDS: Atorvastatin Calcium 80 MG TABLET PO (08:02)
[2020-10-05] MEDS: Multivitamin TABLET 1 TAB PO (08:02)
[2020-10-05] MEDS: Insulin Glargine,Hum.rec.anlog 100 UNIT/ML 10 ML VIAL 24 UNIT SUBCUT (08:02)
[2020-10-05] MEDS: metFORMIN HCl 500 MG TABLET PO ×2 (08:02→16:26)
[2020-10-05] MEDS: Aspirin Enteric Coated 81 MG TABLET.DR PO (08:02)
[2020-10-05] MEDS: lamoTRIgine 100 MG TABLET 150 MG PO (08:02)
[2020-10-05] MEDS: Pioglitazone HCL 30 MG TABLET PO (08:02)
[2020-10-05] MEDS: Lidocaine 4 % Patch ADH..PATCH 1 PATCH TRANSDERMA (08:03)
[2020-10-05] MEDS: Nicotine 21 MG PATCH.TD24 TRANSDERMA (08:03)
--- NOTE | 2020-10-05 11:24 | HO.PSYCHPN ---
Subjective Subjective Date of Service: 10/05/20 Reason For Visit: SI Interim History: pt up and about this morning, seen in her room after initially not finding her there. c/o right knee pain, needing help to shower. pt was informed to approach nursing staff for help with ADLs and to get any PRNs for pain. she expressed understanding and had no other complaints or requests. per staff, lantus order fell off. pt expressing increased paranoia, believes ppl on the unit are talking about her. Mental Status Exam Mental Status Exam Narrative: ambulatory, dressed in street clothes. cooperative. no PMA/PMR. speech nml amount and latency. thoughts linear and logical in brief interaction. affect constricted. no SI/HI/AVH expressed. Diagnostics Vital Signs (24Hr): Vital Signs - 24 hr 10/04/20 12:30 10/04/20 18:00 10/05/20 06:00 Temperature 98.2 F 97.8 F 96.9 F Pulse Rate 86 81 74 Respiratory Rate 16 17 17 Blood Pressure 143/65 H 132/83 120/55 L Pulse Oximetry 99 99 96 Body Mass Index 32.8 Labs Results: 09/29/20 12:59 10/02/20 06:33 Labs: Laboratory Results - last 48 hr 10/03/20 10/04/20 10/04/20 16:27 06:39 12:04 POC Glucose 187 H 217 H 171 H 10/04/20 10/05/20 21:09 06:20 POC Glucose 174 H 227 H Imaging Radiology Impressions: ITS Impressions Head CT 09/29/20 12:34 IMPRESSION: No acute intracranial process seen. Medications Medications Current Medications Generic Name Dose Route Start Last Admin Trade Name Freq PRN Reason Stop Dose Admin Acetaminophen 975 mg 09/29/20 19:53 10/03/20 16:35 Acetaminophen 325 Mg Tablet PO 975 mg Q8H PRN Administration Pain, Mild (Pain Scale 1-3) Acetaminophen 650 mg 09/30/20 18:51 10/02/20 19:44 Acetaminophen 325 Mg Tablet PO 650 mg Q6H PRN Administration Headache/Pain Mild Scale (1-3) Al Hydroxide/Mg Hydroxide 30 ml 09/30/20 18:51 Magnesium Hydrox/Alum Hydrox 30 Ml Oral.Susp PO Q6H PRN Heartburn/Nausea Al Hydroxide/Mg Hydroxide 30 ml 09/30/20 20:34 Magnesium Hydrox/Alum Hydrox 30 Ml Oral.Susp PO Q6H PRN Heartburn/Nausea Aspirin 81 mg 09/30/20 09:00 10/05/20 08:02 Aspirin Enteric Coated 81 Mg Tablet. PO 81 mg DAILY DELMER Administration Atorvastatin Calcium 80 mg 09/30/20 09:00 10/05/20 08:02 Atorvastatin Calcium 80 Mg Tablet PO 80 mg DAILY DELMER Administration Docusate Sodium 200 mg 09/29/20 21:00 10/04/20 21:02 Docusate Sodium 100 Mg Capsule PO 200 mg BEDTIME DELMER Administration Insulin Glargine 24 unit 09/30/20 09:00 10/05/20 08:02 Insulin Glargine,Hum.Rec.Anlog 100 Unit/Ml 10 Ml Vial SUBCUT 24 unit DAILY DELMER Administration Insulin Human Lispro 8 unit 09/30/20 07:30 10/05/20 06:25 Insulin Lispro 100 Unit/Ml 3 Ml Vial SUBCUT 8 unit DAILY@0730 DELMER Administration Insulin Human Lispro 10 unit 09/30/20 16:30 10/04/20 17:38 Insulin Lispro 100 Unit/Ml 3 Ml Vial SUBCUT 10 unit DAILY@1630 DELMER Administration Lamotrigine 150 mg 09/30/20 09:00 10/05/20 08:02 Lamotrigine 100 Mg Tablet PO 150 mg DAILY DELMER Administration Lidocaine 1 patch 09/30/20 09:00 10/05/20 08:03 Lidocaine 4 % Patch Adh..Patch TRANSDERMA 1 patch DAILY DELMER Administration Lisinopril 10 mg 09/30/20 09:00 10/05/20 08:02 Lisinopril 10 Mg Tablet PO 10 mg DAILY COUNTS INCLUDE 234 BEDS AT THE [facility] Administration Protocol Magnesium Hydroxide 30 ml 09/30/20 18:51 Milk Of Magnesia 30 Ml Oral.Susp PO DAILY PRN Constipation Magnesium Hydroxide 30 ml 09/30/20 20:34 Milk Of Magnesia 30 Ml Oral.Susp PO DAILY PRN Constipation Metformin HCl 500 mg 09/30/20 08:00 10/05/20 08:02 Metformin Hcl 500 Mg Tablet PO 500 mg BIDWM DELMER Administration Multivitamins/Vitamin C 1 tab 09/30/20 09:00 10/05/20 08:02 Multivitamin Tablet PO 1 tab DAILY DELMER Administration Nicotine 21 mg 10/01/20 12:45 10/05/20 08:03 Nicotine 21 Mg Patch.Td24 TRANSDERMA 21 mg DAILY DELMER Administration Patient Own 1 each 10/04/20 18:52 10/05/20 06:34 Medication ( TOPICAL 1 each Diclofenac 1% Gel) QID PRN Administration Pain, Mild (Pain Scale 1-3) Olanzapine 25 mg 10/02/20 21:00 10/04/20 21:03 Olanzapine 5 Mg Tablet PO 25 mg BEDTIME DELMER Administration Omeprazole 20 mg 09/30/20 06:30 10/05/20 06:14 Omeprazole 20 Mg Capsule. PO 20 mg DAILY@0630 DELMER Administration Pharmacy Consult 1 each 09/29/20 13:34 Consult Rx Perform Med Rec MISCELLANE ONCE PRN Consult order Pioglitazone HCl 30 mg 09/30/20 09:00 10/05/20 08:02 Pioglitazone Hcl 30 Mg Tablet PO 30 mg DAILY DELMER Administration Vilazodone HCl 20 mg 09/30/20 09:00 10/05/20 08:02 Vilazodone Hcl 20 Mg Tablet PO 20 mg DAILY DELMER Administration Allergies Allergies Allergy/AdvReac Type Severity Reaction Status Date / Time duloxetine [Cymbalta] Allergy Unknown Unknown Verified 08/04/20 13:52 hydroxyzine Allergy Unknown unknown Verified 08/04/20 13:52 risperidone Allergy Unknown Unknown Verified 08/04/20 13:52 trazodone Allergy Unknown Unknown Verified 08/04/20 13:52 quetiapine [From SEROQUEL] AdvReac Severe Acute Unverified 08/04/20 13:52 Dystonic reaction Assessment & Plan Assessment & Plan (1) Schizoaffective disorder: Status: Acute Code(s): F25.9 - Schizoaffective disorder, unspecified (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: Qualifiers: Diabetes mellitus electronic masking system operator insulin use: with electronic masking system operator use Chronic kidney disease stage: stage 3 (moderate) Chronic kidney disease stage 3 subtype: unspecified whether 3a or 3b Qualified Code(s): E11.22 - Type 2 diabetes mellitus with diabetic chronic kidney disease; N18.30 - Chronic kidney disease, stage 3 unspecified; Z79.4 - prison (current) use of insulin Status: Acute Code(s): E11.22 - Type 2 diabetes mellitus with diabetic chronic kidney disease (3) Dyslipidemia: Status: Acute Code(s): E78.5 - Hyperlipidemia, unspecified (4) Chronic kidney disease, stage 3 unspecified: Qualifiers: Chronic kidney disease stage 3 subtype: unspecified whether 3a or 3b Qualified Code(s): N18.30 - Chronic kidney disease, stage 3 unspecified Status: Acute Code(s): N18.30 - Chronic kidney disease, stage 3 unspecified Assessment and Plan: The patient is an elderly female with schizoaffective disorder bipolar type with several admissions into the hospital for psychotic decompensation. The patient has several ancillary services such as VNA, case managing by [facility] is on outpatient services. She relapsed on depressive symptoms and psychotic symptoms elicited by commanding to hurt herself. The patient wants help and she is willing to continue treatment in the facility. Plan 1. Keep same treatment. 2. Gather collateral information Greater than 50% of the session was spent on counseling and/or coordination of care Reason for contiued inpatient stay Substantial Risk for: harm to self, inability to function and rapid decompensation
[2020-10-05] MEDS: Insulin Lispro 100 UNIT/ML 3 ML VIAL 10 UNIT SUBCUT (16:26)
[2020-10-05 18:00] VITALS: BP 167/72; PULSE 91; RESP 17; TEMP 36.8; O2SAT 100
[2020-10-05] MEDS: OLANZapine 5 MG TABLET PO (18:02)
[2020-10-05] MEDS: Docusate Sodium 100 MG CAPSULE 200 MG PO (20:32)
[2020-10-05] MEDS: OLANZapine 5 MG TABLET 25 MG PO (20:32)
[2020-10-05 23:07] LABS: Glucose, Whole Blood 220 mg/dL (60-115)
[2020-10-06 06:00] VITALS: PULSE 86; RESP 18; TEMP 36.4; O2SAT 96
[2020-10-06] MEDS: Omeprazole 20 MG CAPSULE.DR PO (06:40)
[2020-10-06 06:57] LABS: Glucose, Whole Blood 238 mg/dL (60-115)
[2020-10-06 08:12] VITALS: BP 111/54; PULSE 93; O2SAT 97
[2020-10-06] MEDS: Nicotine 21 MG PATCH.TD24 TRANSDERMA (08:14)
[2020-10-06] MEDS: Insulin Glargine,Hum.rec.anlog 100 UNIT/ML 10 ML VIAL 24 UNIT SUBCUT (08:15)
[2020-10-06] MEDS: Lidocaine 4 % Patch ADH..PATCH 1 PATCH TRANSDERMA (08:15)
[2020-10-06 08:16] VITALS: BP 111/54; PULSE 93
[2020-10-06] MEDS: Aspirin Enteric Coated 81 MG TABLET.DR PO (08:16)
[2020-10-06] MEDS: metFORMIN HCl 500 MG TABLET PO ×2 (08:16→16:30)
[2020-10-06] MEDS: Vilazodone HCL 20 MG TABLET PO (08:16)
[2020-10-06] MEDS: Pioglitazone HCL 30 MG TABLET PO (08:16)
[2020-10-06] MEDS: Insulin Lispro 100 UNIT/ML 3 ML VIAL 8 UNIT SUBCUT (08:16)
[2020-10-06] MEDS: lamoTRIgine 100 MG TABLET 150 MG PO (08:17)
[2020-10-06] MEDS: OLANZapine 5 MG TABLET PO (08:17)
[2020-10-06] MEDS: Atorvastatin Calcium 80 MG TABLET PO (08:17)
[2020-10-06] MEDS: Acetaminophen 325 MG TABLET 975 MG PO (08:17)
[2020-10-06] MEDS: Multivitamin TABLET 1 TAB PO (08:20)
--- NOTE | 2020-10-06 13:07 | HO.PSYCHPN ---
Subjective Subjective Date of Service: 10/06/20 Reason For Visit: SI Interim History: The patient reported that she feels depressed and she had AH at night. She denies side effects. Review of Systems Acute medical concerns: No Medical Review of Systems: unchanged Diagnostics Vital Signs (24Hr): Vital Signs - 24 hr 10/05/20 18:00 10/06/20 06:00 10/06/20 08:12 Temperature 98.3 F 97.5 F Pulse Rate 91 86 93 Respiratory Rate 17 18 Blood Pressure 167/72 H 111/54 L Pulse Oximetry 100 96 97 10/06/20 08:16 Temperature Pulse Rate 93 Respiratory Rate Blood Pressure 111/54 L Pulse Oximetry Body Mass Index 32.8 Labs Results: 09/29/20 12:59 10/02/20 06:33 Labs: Laboratory Results - last 48 hr 10/04/20 10/05/20 10/05/20 21:09 06:20 23:03 POC Glucose 174 H 227 H 220 H 10/06/20 06:44 POC Glucose 238 H Imaging Radiology Impressions: ITS Impressions Head CT 09/29/20 12:34 IMPRESSION: No acute intracranial process seen. Medications Medications Current Medications Generic Name Dose Route Start Last Admin Trade Name Freq PRN Reason Stop Dose Admin Acetaminophen 975 mg 09/29/20 19:53 10/06/20 08:17 Acetaminophen 325 Mg Tablet PO 975 mg Q8H PRN Administration Pain, Mild (Pain Scale 1-3) Acetaminophen 650 mg 09/30/20 18:51 10/02/20 19:44 Acetaminophen 325 Mg Tablet PO 650 mg Q6H PRN Administration Headache/Pain Mild Scale (1-3) Al Hydroxide/Mg Hydroxide 30 ml 09/30/20 18:51 Magnesium Hydrox/Alum Hydrox 30 Ml Oral.Susp PO Q6H PRN Heartburn/Nausea Al Hydroxide/Mg Hydroxide 30 ml 09/30/20 20:34 Magnesium Hydrox/Alum Hydrox 30 Ml Oral.Susp PO Q6H PRN Heartburn/Nausea Aspirin 81 mg 09/30/20 09:00 10/06/20 08:16 Aspirin Enteric Coated 81 Mg Tablet. PO 81 mg DAILY [facility] Administration Atorvastatin Calcium 80 mg 09/30/20 09:00 10/06/20 08:17 Atorvastatin Calcium 80 Mg Tablet PO 80 mg DAILY [facility] Administration Docusate Sodium 200 mg 09/29/20 21:00 10/05/20 20:32 Docusate Sodium 100 Mg Capsule PO 200 mg BEDTIME [facility] Administration Insulin Glargine 24 unit 09/30/20 09:00 10/06/20 08:15 Insulin Glargine,Hum.Rec.Anlog 100 Unit/Ml 10 Ml Vial SUBCUT 24 unit DAILY [facility] Administration Insulin Human Lispro 8 unit 09/30/20 07:30 10/06/20 08:16 Insulin Lispro 100 Unit/Ml 3 Ml Vial SUBCUT 8 unit DAILY@0730 [facility] Administration Insulin Human Lispro 10 unit 09/30/20 16:30 10/05/20 16:26 Insulin Lispro 100 Unit/Ml 3 Ml Vial SUBCUT 10 unit DAILY@1630 [facility] Administration Lamotrigine 150 mg 09/30/20 09:00 10/06/20 08:17 Lamotrigine 100 Mg Tablet PO 150 mg DAILY [facility] Administration Lidocaine 1 patch 09/30/20 09:00 10/06/20 08:15 Lidocaine 4 % Patch Adh..Patch TRANSDERMA 1 patch DAILY [facility] Administration Lisinopril 10 mg 09/30/20 09:00 10/06/20 08:16 Lisinopril 10 Mg Tablet PO 10 mg DAILY [facility] Administration Protocol Magnesium Hydroxide 30 ml 09/30/20 18:51 Milk Of Magnesia 30 Ml Oral.Susp PO DAILY PRN Constipation Magnesium Hydroxide 30 ml 09/30/20 20:34 Milk Of Magnesia 30 Ml Oral.Susp PO DAILY PRN Constipation Metformin HCl 500 mg 09/30/20 08:00 10/06/20 08:16 Metformin Hcl 500 Mg Tablet PO 500 mg BIDWM [facility] Administration Multivitamins/Vitamin C 1 tab 09/30/20 09:00 10/06/20 08:20 Multivitamin Tablet PO 1 tab DAILY [facility] Administration Nicotine 21 mg 10/01/20 12:45 10/06/20 08:14 Nicotine 21 Mg Patch.Td24 TRANSDERMA 21 mg DAILY [facility] Administration Patient Own 1 each 10/04/20 18:52 10/06/20 08:14 Medication ( TOPICAL 1 each Diclofenac 1% Gel) QID PRN Administration Pain, Mild (Pain Scale 1-3) Olanzapine 25 mg 10/02/20 21:00 10/05/20 20:32 Olanzapine 5 Mg Tablet PO 25 mg BEDTIME [facility] Administration Olanzapine 5 mg 10/05/20 16:49 10/06/20 08:17 Olanzapine 5 Mg Tablet PO 5 mg Q4H PRN Administration Anxiety Omeprazole 20 mg 09/30/20 06:30 10/06/20 06:40 Omeprazole 20 Mg Capsule. PO 20 mg DAILY@0630 [facility] Administration Pharmacy Consult 1 each 09/29/20 13:34 Consult Rx Perform Med Rec MISCELLANE ONCE PRN Consult order Pioglitazone HCl 30 mg 09/30/20 09:00 10/06/20 08:16 Pioglitazone Hcl 30 Mg Tablet PO 30 mg DAILY [facility] Administration Vilazodone HCl 20 mg 09/30/20 09:00 10/06/20 08:16 Vilazodone Hcl 20 Mg Tablet PO 20 mg DAILY [facility] Administration Allergies Allergies Allergy/AdvReac Type Severity Reaction Status Date / Time duloxetine [Cymbalta] Allergy Unknown Unknown Verified 08/04/20 13:52 hydroxyzine Allergy Unknown unknown Verified 08/04/20 13:52 risperidone Allergy Unknown Unknown Verified 08/04/20 13:52 trazodone Allergy Unknown Unknown Verified 08/04/20 13:52 quetiapine [From SEROQUEL] AdvReac Severe Acute Unverified 08/04/20 13:52 Dystonic reaction Assessment & Plan Assessment & Plan (1) Schizoaffective disorder: Status: Acute Code(s): F25.9 - Schizoaffective disorder, unspecified (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: Qualifiers: Diabetes mellitus correction insulin use: with correction use Chronic kidney disease stage: stage 3 (moderate) Chronic kidney disease stage 3 subtype: unspecified whether 3a or 3b Qualified Code(s): E11.22 - Type 2 diabetes mellitus with diabetic chronic kidney disease; N18.30 - Chronic kidney disease, stage 3 unspecified; Z79.4 - rat exterminator (current) use of insulin Status: Acute Code(s): E11.22 - Type 2 diabetes mellitus with diabetic chronic kidney disease (3) Dyslipidemia: Status: Acute Code(s): E78.5 - Hyperlipidemia, unspecified (4) Chronic kidney disease, stage 3 unspecified: Qualifiers: Chronic kidney disease stage 3 subtype: unspecified whether 3a or 3b Qualified Code(s): N18.30 - Chronic kidney disease, stage 3 unspecified Status: Acute Code(s): N18.30 - Chronic kidney disease, stage 3 unspecified Assessment and Plan: The patient is an elderly female with schizoaffective disorder bipolar type with several admissions into the hospital for psychotic decompensation. The patient has several ancillary services such as VNA, case managing by [facility] is on outpatient services. She relapsed on depressive symptoms and psychotic symptoms elicited by AH commanding to hurt herself. The patient wants help and she is willing to continue treatment in the facility. Plan 1. Increase Zyprexa up to 30 mg po qhs. 2. Gather collateral information Greater than 50% of the session was spent on counseling and/or coordination of care Reason for contiued inpatient stay Substantial Risk for: harm to self, inability to function, rapid decompensation and med/psych decompensation
[2020-10-06 16:20] LABS: Glucose, Whole Blood 228 mg/dL (60-115)
[2020-10-06] MEDS: Insulin Lispro 100 UNIT/ML 3 ML VIAL 10 UNIT SUBCUT (16:29)
[2020-10-06 17:40] VITALS: BP 127/59; PULSE 88; RESP 18; TEMP 36.4; O2SAT 100
[2020-10-06] MEDS: Docusate Sodium 100 MG CAPSULE 200 MG PO (20:30)
[2020-10-06] MEDS: OLANZapine 10 MG TABLET 30 MG PO (20:30)
[2020-10-06 20:38] LABS: Glucose, Whole Blood 231 mg/dL (60-115)
[2020-10-07 06:45] VITALS: BP 92/56; PULSE 84; RESP 18; TEMP 36.6; O2SAT 96
[2020-10-07] MEDS: Omeprazole 20 MG CAPSULE.DR PO (06:48)
[2020-10-07 07:29] LABS: Glucose, Whole Blood 250 mg/dL (60-115)
[2020-10-07 09:39] VITALS: BP 98/56; PULSE 88; RESP 16; TEMP 36.6; O2SAT 95
[2020-10-07] MEDS: Insulin Lispro 100 UNIT/ML 3 ML VIAL 8 UNIT SUBCUT (09:40)
[2020-10-07] MEDS: Nicotine 21 MG PATCH.TD24 TRANSDERMA (09:40)
[2020-10-07] MEDS: Insulin Glargine,Hum.rec.anlog 100 UNIT/ML 10 ML VIAL 24 UNIT SUBCUT (09:40)
[2020-10-07] MEDS: Lidocaine 4 % Patch ADH..PATCH 1 PATCH TRANSDERMA (09:40)
[2020-10-07] MEDS: Vilazodone HCL 20 MG TABLET PO (09:41)
[2020-10-07] MEDS: Aspirin Enteric Coated 81 MG TABLET.DR PO (09:41)
[2020-10-07] MEDS: metFORMIN HCl 500 MG TABLET PO ×2 (09:41→16:34)
[2020-10-07] MEDS: Multivitamin TABLET 1 TAB PO (09:41)
[2020-10-07] MEDS: OLANZapine 5 MG TABLET PO (09:42)
[2020-10-07] MEDS: Acetaminophen 325 MG TABLET 975 MG PO ×2 (09:42→20:35)
[2020-10-07] MEDS: Atorvastatin Calcium 80 MG TABLET PO (09:42)
[2020-10-07] MEDS: lamoTRIgine 100 MG TABLET 150 MG PO (09:43)
[2020-10-07] MEDS: Pioglitazone HCL 30 MG TABLET PO (09:45)
[2020-10-07 10:44] VITALS: BP 98/56; PULSE 88
[2020-10-07 11:38] LABS: Glucose, Whole Blood 263 mg/dL (60-115)
--- NOTE | 2020-10-07 13:24 | PC.NURSE ---
Pt participated in [facility] screen on this date, scored 10/30, indicating cognition is below normal limits; MD and nurse aware of results.
--- NOTE | 2020-10-07 15:55 | P.PNPSI_ITS ---
Subjective Subjective Date of Service: 10/08/20 Reason For Visit: SI Subjective Notes: Conditional Voluntary Interim History: The patient has seen interacting more with staff. She admitted auditory hallucinations mostly at night on some depressive symptoms initiated by depressed mood, mild anhedonia and lack of energy but she denies active suicidal ideation. We will gather collateral information to assess if the patient is at baseline. Review of Systems Acute medical concerns: No Medical Review of Systems: unchanged Mental Status Exam Mental Status Exam Patient Appearance: Well Grooomed Patient Orientation: Person, Place and Situation Level of Consciousness: Awake Patient Behavior: Appropriate Mood Description: Withdrawn Affect Description: Constricted Patient Cognition Impaired: Yes Ability to Follow Directions: Good Speech Pattern: Clear Memory Description: Remote Impaired and Immediate Impaired Hallucinations: Auditory Delusions: Paranoid Ideation Thought Process: Distracted Thought Content: positive for Obsessional Thoughts and positive for Circumstantial Judgement: Fair Diagnostics Vital Signs (24Hr): Vital Signs - 24 hr 10/06/20 17:40 10/07/20 06:45 10/07/20 09:39 Temperature 97.5 F 98 F 97.9 F Pulse Rate 88 84 88 Respiratory Rate 18 18 16 Blood Pressure 127/59 L 92/56 L 98/56 L Pulse Oximetry 100 96 95 10/07/20 10:44 Temperature Pulse Rate 88 Respiratory Rate Blood Pressure 98/56 L Pulse Oximetry Body Mass Index 32.8 Labs Results: 09/29/20 12:59 10/02/20 06:33 Labs: Laboratory Results - last 48 hr 10/05/20 10/06/20 10/06/20 23:03 06:44 16:16 POC Glucose 220 H 238 H 228 H 10/06/20 10/07/20 10/07/20 20:28 06:54 11:34 POC Glucose 231 H 250 H 263 H Imaging Radiology Impressions: ITS Impressions Head CT 09/29/20 12:34 IMPRESSION: No acute intracranial process seen. Medications Medications Current Medications Generic Name Dose Route Start Last Admin Trade Name Freq PRN Reason Stop Dose Admin Acetaminophen 975 mg 09/29/20 19:53 10/07/20 09:42 Acetaminophen 325 Mg Tablet PO 975 mg Q8H PRN Administration Pain, Mild (Pain Scale 1-3) Acetaminophen 650 mg 09/30/20 18:51 10/02/20 19:44 Acetaminophen 325 Mg Tablet PO 650 mg Q6H PRN Administration Headache/Pain Mild Scale (1-3) Al Hydroxide/Mg Hydroxide 30 ml 09/30/20 18:51 Magnesium Hydrox/Alum Hydrox 30 Ml Oral.Susp PO Q6H PRN Heartburn/Nausea Al Hydroxide/Mg Hydroxide 30 ml 09/30/20 20:34 Magnesium Hydrox/Alum Hydrox 30 Ml Oral.Susp PO Q6H PRN Heartburn/Nausea Aspirin 81 mg 09/30/20 09:00 10/07/20 09:41 Aspirin Enteric Coated 81 Mg Tablet.Dr PO 81 mg DAILY [facility]MER Administration Atorvastatin Calcium 80 mg 09/30/20 09:00 10/07/20 09:42 Atorvastatin Calcium 80 Mg Tablet PO 80 mg DAILY [facility] Administration Docusate Sodium 200 mg 09/29/20 21:00 10/06/20 20:30 Docusate Sodium 100 Mg Capsule PO 200 mg BEDTIME [facility]MER Administration Insulin Glargine 24 unit 09/30/20 09:00 10/07/20 09:40 Insulin Glargine,Hum.Rec.Anlog 100 Unit/Ml 10 Ml Vial SUBCUT 24 unit DAILY [facility] Administration Insulin Human Lispro 8 unit 09/30/20 07:30 10/07/20 09:40 Insulin Lispro 100 Unit/Ml 3 Ml Vial SUBCUT 8 unit DAILY@0730 [facility] Administration Insulin Human Lispro 10 unit 09/30/20 16:30 10/06/20 16:29 Insulin Lispro 100 Unit/Ml 3 Ml Vial SUBCUT 10 unit DAILY@1630 [facility] Administration Lamotrigine 150 mg 09/30/20 09:00 10/07/20 09:43 Lamotrigine 100 Mg Tablet PO 150 mg DAILY [facility] Administration Lidocaine 1 patch 09/30/20 09:00 10/07/20 09:40 Lidocaine 4 % Patch Adh..Patch TRANSDERMA 1 patch DAILY [facility] Administration Lisinopril 10 mg 09/30/20 09:00 10/07/20 10:44 Lisinopril 10 Mg Tablet PO Not Given DAILY [facility] Protocol Magnesium Hydroxide 30 ml 09/30/20 18:51 Milk Of Magnesia 30 Ml Oral.Susp PO DAILY PRN Constipation Magnesium Hydroxide 30 ml 09/30/20 20:34 Milk Of Magnesia 30 Ml Oral.Susp PO DAILY PRN Constipation Metformin HCl 500 mg 09/30/20 08:00 10/07/20 09:41 Metformin Hcl 500 Mg Tablet PO 500 mg BIDWM DELMER Administration Multivitamins/Vitamin C 1 tab 09/30/20 09:00 10/07/20 09:41 Multivitamin Tablet PO 1 tab DAILY [facility] Administration Nicotine 21 mg 10/01/20 12:45 10/07/20 09:40 Nicotine 21 Mg Patch.Td24 TRANSDERMA 21 mg DAILY [facility]MER Administration Patient Own 1 each 10/04/20 18:52 10/07/20 09:45 Medication ( TOPICAL 1 each Diclofenac 1% Gel) QID PRN Administration Pain, Mild (Pain Scale 1-3) Olanzapine 5 mg 10/05/20 16:49 10/07/20 09:42 Olanzapine 5 Mg Tablet PO 5 mg Q4H PRN Administration Anxiety Olanzapine 30 mg 10/06/20 21:00 10/06/20 20:30 Olanzapine 10 Mg Tablet PO 30 mg BEDTIME [facility]MER Administration Omeprazole 20 mg 09/30/20 06:30 10/07/20 06:48 Omeprazole 20 Mg Capsule. PO 20 mg DAILY@0630 [facility] Administration Pharmacy Consult 1 each 09/29/20 13:34 Consult Rx Perform Med Rec MISCELLANE ONCE PRN Consult order Pioglitazone HCl 30 mg 09/30/20 09:00 10/07/20 09:45 Pioglitazone Hcl 30 Mg Tablet PO 30 mg DAILY [facility] Administration Vilazodone HCl 20 mg 09/30/20 09:00 10/07/20 09:41 Vilazodone Hcl 20 Mg Tablet PO 20 mg DAILY [facility]MER Administration Allergies Allergies Allergy/AdvReac Type Severity Reaction Status Date / Time duloxetine [Cymbalta] Allergy Unknown Unknown Verified 08/04/20 13:52 hydroxyzine Allergy Unknown unknown Verified 08/04/20 13:52 risperidone Allergy Unknown Unknown Verified 08/04/20 13:52 trazodone Allergy Unknown Unknown Verified 08/04/20 13:52 quetiapine [From SEROQUEL] AdvReac Severe Acute Unverified 08/04/20 13:52 Dystonic reaction Assessment & Plan Assessment & Plan (1) Schizoaffective disorder: Status: Acute Code(s): F25.9 - Schizoaffective disorder, unspecified (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: Qualifiers: Chronic kidney disease stage: stage 3 (moderate) Chronic kidney disease stage 3 subtype: unspecified whether 3a or 3b Diabetes mellitus residential insulin use: with manager long term care use Qualified Code(s): E11.22 - Type 2 diabetes mellitus with diabetic chronic kidney disease; N18.30 - Chronic kidney disease, stage 3 unspecified; Z79.4 - roasterman (current) use of insulin Status: Acute Code(s): E11.22 - Type 2 diabetes mellitus with diabetic chronic kidney disease (3) Dyslipidemia: Status: Acute Code(s): E78.5 - Hyperlipidemia, unspecified (4) Chronic kidney disease, stage 3 unspecified: Qualifiers: Chronic kidney disease stage 3 subtype: unspecified whether 3a or 3b Qualified Code(s): N18.30 - Chronic kidney disease, stage 3 unspecified Status: Acute Code(s): N18.30 - Chronic kidney disease, stage 3 unspecified Assessment and Plan: The patient is an elderly female with schizoaffective disorder bipolar type with several admissions into the hospital for psychotic decompensation. The patient has several ancillary services such as VNA, case managing by [facility] is on outpatient services. She relapsed on depressive symptoms and psychotic symptoms elicited by AH commanding to hurt herself. The patient wants help and she is willing to continue treatment in the facility. Plan 1. Keep same treatment. 2. Consider the possibility to increase Zyprexa the hallucinations continue. Greater than 50% of the session was spent on counseling and/or coordination of care Reason for contiued inpatient stay Substantial Risk for: harm to self, inability to function, rapid decompensation and med/psych decompensation
--- NOTE | 2020-10-07 15:58 | PC.NURSE ---
Patient is assessed in room this morning. She endorses Suicidal ideation, stating, You know when you're just laying there your mind goes and goes. I think about it. I think about what i might do if I go home. Patient reports feeling safe here on the unit. She reports feeling like other patients may be talking about her, stating, I hear people talking out there [referring to the hallway]. Patient is up to dayroom for meals and groups and showers with staff assistance.
[2020-10-07 16:32] LABS: Glucose, Whole Blood 243 mg/dL (60-115)
[2020-10-07] MEDS: Insulin Lispro 100 UNIT/ML 3 ML VIAL 10 UNIT SUBCUT (16:34)
[2020-10-07 18:00] VITALS: BP 113/55; PULSE 89; TEMP 36.8; O2SAT 98
[2020-10-07] MEDS: OLANZapine 10 MG TABLET 30 MG PO (20:26)
[2020-10-07] MEDS: Docusate Sodium 100 MG CAPSULE 200 MG PO (20:26)
[2020-10-08 01:21] LABS: Glucose, Whole Blood 147 mg/dL (60-115)
[2020-10-08 06:00] VITALS: BP 119/85; PULSE 90; RESP 20; TEMP 36.4; O2SAT 96
[2020-10-08 06:25] LABS: Glucose, Whole Blood 227 mg/dL (60-115)
[2020-10-08] MEDS: Insulin Lispro 100 UNIT/ML 3 ML VIAL 8 UNIT SUBCUT (06:28)
[2020-10-08] MEDS: metFORMIN HCl 500 MG TABLET PO ×2 (06:29→16:48)
[2020-10-08] MEDS: Omeprazole 20 MG CAPSULE.DR PO (06:29)
[2020-10-08] MEDS: Insulin Glargine,Hum.rec.anlog 100 UNIT/ML 10 ML VIAL 24 UNIT SUBCUT (09:27)
[2020-10-08] MEDS: Nicotine 21 MG PATCH.TD24 TRANSDERMA (09:27)
[2020-10-08 09:28] VITALS: BP 129/70; PULSE 97
[2020-10-08] MEDS: Atorvastatin Calcium 80 MG TABLET PO (09:28)
[2020-10-08] MEDS: Vilazodone HCL 20 MG TABLET PO (09:28)
[2020-10-08] MEDS: Multivitamin TABLET 1 TAB PO (09:28)
[2020-10-08] MEDS: Lidocaine 4 % Patch ADH..PATCH 1 PATCH TRANSDERMA (09:29)
[2020-10-08] MEDS: Aspirin Enteric Coated 81 MG TABLET.DR PO (09:29)
[2020-10-08] MEDS: Pioglitazone HCL 30 MG TABLET PO (09:29)
[2020-10-08] MEDS: lamoTRIgine 100 MG TABLET 150 MG PO (09:29)
[2020-10-08 11:55] LABS: Glucose, Whole Blood 193 mg/dL (60-115)
[2020-10-08] MEDS: OLANZapine 5 MG TABLET PO (12:50)
--- NOTE | 2020-10-08 13:51 | P.PNPSI_ITS ---
Subjective Subjective Date of Service: 10/08/20 Reason For Visit: SI Subjective Notes: Conditional Voluntary Interim History: Distally we discussed with the patient the possibility of discharge for tomorrow. At she was in agreement of the plan seems her dysphoria has improved and her only true hallucinations are slightly better with increase of Zyprexa up to 30 mg p.o. q.h.s. without side effects. To the afternoon, the patient was very anxious and she started hearing voices. We discussed with the patient and apparently she is conscious for discharge tomorrow. As per her case hardener, this is her baseline. OT did a [place] test and she scored only Fris[place] 10 over 30. Medication Compliance: Yes Side effects from medications: No Attending Groups: Yes Review of Systems Acute medical concerns: No Medical Review of Systems: unchanged Mental Status Exam Mental Status Exam Patient Appearance: Well Grooomed Patient Orientation: Person, Place, Time and Situation Level of Consciousness: Awake Patient Behavior: Appropriate and Guarded Mood Description: Calm and Fearful Affect Description: Calm and Constricted Patient Cognition Impaired: No Ability to Follow Directions: Good Speech Pattern: Clear Hallucinations: Auditory Delusions: Paranoid Ideation Thought Process: Distracted and Linear Thought Content: positive for Circumstantial and positive for Preoccupation Depressive Symptoms: Feelings of Worthlessness Judgement: Fair Diagnostics Vital Signs (24Hr): Vital Signs - 24 hr 10/07/20 18:00 10/08/20 06:00 10/08/20 09:28 Temperature 98.3 F 97.5 F Pulse Rate 89 90 97 Respiratory Rate 20 Blood Pressure 113/55 L 119/85 129/70 Pulse Oximetry 98 96 Body Mass Index 32.8 Labs Results: 09/29/20 12:59 10/02/20 06:33 Labs: Laboratory Results - last 48 hr 10/06/20 10/06/20 10/07/20 16:16 20:28 06:54 POC Glucose 228 H 231 H 250 H 10/07/20 10/07/20 10/07/20 11:34 16:28 20:31 POC Glucose 263 H 243 H 147 H 10/08/20 10/08/20 06:21 11:47 POC Glucose 227 H 193 H Imaging Radiology Impressions: ITS Impressions Head CT 09/29/20 12:34 IMPRESSION: No acute intracranial process seen. Medications Medications Current Medications Generic Name Dose Route Start Last Admin Trade Name Freq PRN Reason Stop Dose Admin Acetaminophen 975 mg 09/29/20 19:53 10/07/20 20:35 Acetaminophen 325 Mg Tablet PO 975 mg Q8H PRN Administration Pain, Mild (Pain Scale 1-3) Acetaminophen 650 mg 09/30/20 18:51 10/02/20 19:44 Acetaminophen 325 Mg Tablet PO 650 mg Q6H PRN Administration Headache/Pain Mild Scale (1-3) Al Hydroxide/Mg Hydroxide 30 ml 09/30/20 18:51 Magnesium Hydrox/Alum Hydrox 30 Ml Oral.Susp PO Q6H PRN Heartburn/Nausea Al Hydroxide/Mg Hydroxide 30 ml 09/30/20 20:34 Magnesium Hydrox/Alum Hydrox 30 Ml Oral.Susp PO Q6H PRN Heartburn/Nausea Aspirin 81 mg 09/30/20 09:00 10/08/20 09:29 Aspirin Enteric Coated 81 Mg Tablet. PO 81 mg DAILY [facility] Administration Atorvastatin Calcium 80 mg 09/30/20 09:00 10/08/20 09:28 Atorvastatin Calcium 80 Mg Tablet PO 80 mg DAILY [facility] Administration Docusate Sodium 200 mg 09/29/20 21:00 10/07/20 20:26 Docusate Sodium 100 Mg Capsule PO 200 mg BEDTIME [facility] Administration Insulin Glargine 24 unit 09/30/20 09:00 10/08/20 09:27 Insulin Glargine,Hum.Rec.Anlog 100 Unit/Ml 10 Ml Vial SUBCUT 24 unit DAILY [facility] Administration Insulin Human Lispro 8 unit 09/30/20 07:30 10/08/20 06:28 Insulin Lispro 100 Unit/Ml 3 Ml Vial SUBCUT 8 unit DAILY@0730 [facility] Administration Insulin Human Lispro 10 unit 09/30/20 16:30 10/07/20 16:34 Insulin Lispro 100 Unit/Ml 3 Ml Vial SUBCUT 10 unit DAILY@1630 [facility] Administration Lamotrigine 150 mg 09/30/20 09:00 10/08/20 09:29 Lamotrigine 100 Mg Tablet PO 150 mg DAILY [facility] Administration Lidocaine 1 patch 09/30/20 09:00 10/08/20 09:29 Lidocaine 4 % Patch Adh..Patch TRANSDERMA 1 patch DAILY [facility] Administration Lisinopril 10 mg 09/30/20 09:00 10/08/20 09:28 Lisinopril 10 Mg Tablet PO 10 mg DAILY [facility] Administration Protocol Magnesium Hydroxide 30 ml 09/30/20 18:51 Milk Of Magnesia 30 Ml Oral.Susp PO DAILY PRN Constipation Magnesium Hydroxide 30 ml 09/30/20 20:34 Milk Of Magnesia 30 Ml Oral.Susp PO DAILY PRN Constipation Metformin HCl 500 mg 09/30/20 08:00 10/08/20 06:29 Metformin Hcl 500 Mg Tablet PO 500 mg BIDWM [facility] Administration Multivitamins/Vitamin C 1 tab 09/30/20 09:00 10/08/20 09:28 Multivitamin Tablet PO 1 tab DAILY [facility] Administration Nicotine 21 mg 10/01/20 12:45 10/08/20 09:27 Nicotine 21 Mg Patch.Td24 TRANSDERMA 21 mg DAILY [facility] Administration Patient Own 1 each 10/04/20 18:52 10/07/20 17:24 Medication ( TOPICAL 1 each Diclofenac 1% Gel) QID PRN Administration Pain, Mild (Pain Scale 1-3) Olanzapine 5 mg 10/05/20 16:49 10/08/20 12:50 Olanzapine 5 Mg Tablet PO 5 mg Q4H PRN Administration Anxiety Olanzapine 30 mg 10/06/20 21:00 10/07/20 20:26 Olanzapine 10 Mg Tablet PO 30 mg BEDTIME [facility] Administration Omeprazole 20 mg 09/30/20 06:30 10/08/20 06:29 Omeprazole 20 Mg Capsule. PO 20 mg DAILY@0630 [facility] Administration Pharmacy Consult 1 each 09/29/20 13:34 Consult Rx Perform Med Rec MISCELLANE ONCE PRN Consult order Pioglitazone HCl 30 mg 09/30/20 09:00 10/08/20 09:29 Pioglitazone Hcl 30 Mg Tablet PO 30 mg DAILY [facility] Administration Vilazodone HCl 20 mg 09/30/20 09:00 10/08/20 09:28 Vilazodone Hcl 20 Mg Tablet PO 20 mg DAILY [facility] Administration Allergies Allergies Allergy/AdvReac Type Severity Reaction Status Date / Time duloxetine [Cymbalta] Allergy Unknown Unknown Verified 10/07/20 20:35 hydroxyzine Allergy Unknown unknown Verified 10/07/20 20:35 risperidone Allergy Unknown Unknown Verified 10/07/20 20:35 trazodone Allergy Unknown Unknown Verified 10/07/20 20:35 quetiapine [From SEROQUEL] AdvReac Severe Acute Verified 10/07/20 20:35 Dystonic reaction Assessment & Plan Assessment & Plan (1) Schizoaffective disorder: Status: Acute Code(s): F25.9 - Schizoaffective disorder, unspecified (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: Qualifiers: Chronic kidney disease stage: stage 3 (moderate) Chronic kidney disease stage 3 subtype: unspecified whether 3a or 3b Diabetes mellitus skilled nursing insulin use: with wire turning machine operator use Qualified Code(s): E11.22 - Type 2 diabetes mellitus with diabetic chronic kidney disease; N18.30 - Chronic kidney disease, stage 3 unspecified; Z79.4 - cloth checker (current) use of insulin Status: Acute Code(s): E11.22 - Type 2 diabetes mellitus with diabetic chronic kidney disease (3) Dyslipidemia: Status: Acute Code(s): E78.5 - Hyperlipidemia, unspecified (4) Chronic kidney disease, stage 3 unspecified: Qualifiers: Chronic kidney disease stage 3 subtype: unspecified whether 3a or 3b Qualified Code(s): N18.30 - Chronic kidney disease, stage 3 unspecified Status: Acute Code(s): N18.30 - Chronic kidney disease, stage 3 unspecified Assessment and Plan: The patient is an elderly female with schizoaffective disorder bipolar type with several admissions into the hospital for psychotic decompensation. The patient has several ancillary services such as VNA, case managing by [facility] is on outpatient services. She relapsed on depressive symptoms and psychotic symptoms elicited by AH commanding to hurt herself. The patient wants help and she is willing to continue treatment in the facility. Plan 1. Keep same treatment. 2. Discharge tomorrow. Greater than 50% of the session was spent on counseling and/or coordination of care Reason for contiued inpatient stay Substantial Risk for: inability to function, rapid decompensation and med/psych decompensation
[2020-10-08 16:36] LABS: Glucose, Whole Blood 281 mg/dL (60-115)
[2020-10-08] MEDS: Insulin Lispro 100 UNIT/ML 3 ML VIAL 10 UNIT SUBCUT (16:48)
[2020-10-08 18:00] VITALS: BP 146/67; PULSE 86; RESP 17; TEMP 36.6; O2SAT 99
[2020-10-08 20:22] LABS: Glucose, Whole Blood 283 mg/dL (60-115)
[2020-10-08] MEDS: Docusate Sodium 100 MG CAPSULE 200 MG PO (20:23)
[2020-10-08] MEDS: OLANZapine 10 MG TABLET 30 MG PO (20:24)
[2020-10-08] MEDS: Acetaminophen 325 MG TABLET 975 MG PO (20:24)
[2020-10-09 06:00] VITALS: BP 119/57; PULSE 93; RESP 18; TEMP 36; O2SAT 98
[2020-10-09 06:37] LABS: Glucose, Whole Blood 213 mg/dL (60-115)
[2020-10-09] MEDS: Insulin Lispro 100 UNIT/ML 3 ML VIAL 8 UNIT SUBCUT (06:38)
[2020-10-09] MEDS: metFORMIN HCl 500 MG TABLET PO (06:38)
[2020-10-09] MEDS: Omeprazole 20 MG CAPSULE.DR PO (06:38)
[2020-10-09] MEDS: Aspirin Enteric Coated 81 MG TABLET.DR PO (08:59)
[2020-10-09] MEDS: Vilazodone HCL 20 MG TABLET PO (08:59)
[2020-10-09] MEDS: OLANZapine 5 MG TABLET PO (08:59)
[2020-10-09] MEDS: Multivitamin TABLET 1 TAB PO (08:59)
--- NOTE | 2020-10-09 08:59 | P.DS_ITS ---
DS: Providers Provider Date of Service: 10/09/20 Date of admission: 09/30/20 16:52 Date of discharge: 10/09/20 Primary care physician: Oneida Lynne NP Consults: 09/29/20 14:45 Consult to Crisis Stat Reason for consultation: SI, hallucination. Has provider been notified: Yes 09/30/20 20:46 Consult to Hospitalist Routine Consulting Provider: Hospitalist Reason For Exam: New admit physical 10/02/20 11:28 Consult to Hospitalist Routine Consulting Provider: Hospitalist Reason For Exam: chronic back pain Attending physician on discharge: German Sorensen DS: Diagnosis Discharge Diagnosis (1) Schizoaffective disorder: Status: Acute (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: Status: Acute (3) Dyslipidemia: Status: Acute (4) Chronic kidney disease, stage 3 unspecified: Status: Acute DS: Medications Discharge Medications Home Medications: Home Medications Medication Instructions Recorded Confirmed docusate sodium 100 mg capsule 200 mg PO BEDTIME 12/18/19 10/01/20 (Colace) lorazepam 1 mg tablet (Ativan) 1 mg PO TID PRN 12/18/19 10/01/20 omeprazole 20 mg capsule,delayed 20 mg PO DAILY 12/18/19 10/01/20 release vilazodone 20 mg tablet (Viibryd) 20 mg PO DAILY 12/18/19 10/01/20 multivitamin 1 tab PO DAILY 06/25/20 10/01/20 acetaminophen 500 mg tablet 1,000 mg PO Q8H PRN 09/29/20 10/01/20 (Tylenol Extra Strength) diclofenac sodium 1 % topical gel 1 ea TOPICAL QID PRN 09/29/20 10/04/20 insulin aspart U-100 100 unit/mL 8 unit SUBCUT DAILY 09/29/20 10/01/20 (3 mL) subcutaneous pen (Novolog Flexpen U-100 Insulin aspart) insulin aspart U-100 100 unit/mL 10 unit SUBCUT DAILY@1630 09/29/20 10/01/20 subcutaneous solution (Novolog U-100 Insulin aspart) lamotrigine 150 mg tablet 150 mg PO DAILY 09/29/20 10/01/20 (Lamictal) lidocaine 5 % topical patch 1 patch TOPICAL DAILY 08/02/21 08/04/21 (Lidoderm) olanzapine 20 mg tablet 20 mg PO BEDTIME 09/29/20 10/01/20 rosuvastatin 40 mg tablet (Crestor) 40 mg PO DAILY 09/29/20 10/01/20 Previous Rx's Medication Instructions Recorded aspirin 81 mg tablet,delayed 81 mg PO DAILY #30 tab 01/01/20 release (Adult Aspirin Regimen) blood-glucose meter (FreeStyle #1 ea 04/29/20 Lite Meter) blood sugar diagnostic (FreeStyle 1 strip MISCELLANEOUS TID #100 ea 05/19/20 Lite Strips) lancets 28 gauge (FreeStyle 1 gauge TOPICAL TID #100 ea 05/19/20 Lancets) metformin 500 mg tablet 500 mg PO BID #60 tab 06/18/20 insulin degludec 200 unit/mL (3 34 unit SUBCUT DAILY 30 Days #9 ml 08/04/20 mL) subcutaneous pen (Tresiba FlexTouch U-200 insulin) pen needle, diabetic 32 gauge x 1 ea MISCELLANEOUS TID #100 ea 08/08/20 (Unifine Pentips) pioglitazone 30 mg tablet 30 mg PO DAILY #30 tab 09/05/20 lisinopril 10 mg tablet 10 mg PO DAILY #30 tab 10/06/20 Mental Status Exam Mental Status Exam Narrative: The patient is a middle-aged female, well groomed, cooperative and pleasant with good eye contact. Her speech is normal in Indonesian and Indonesian. Her mood is mildly dysphoric. Her affect is constricted but appropriate. Her thought process is concrete but linear. Thought content with poverty of content, she admits to sporadic auditory hallucinations, she denies paranoid delusions. Insight judgment and impulse control improved Data Data Completed and Pending Completed studies during hospitalization [Text1]: 10/02/20 10/02/20 10/02/20 11:38 17:04 20:21 POC Glucose 170 H 261 H 176 H 10/03/20 10/03/20 10/04/20 08:02 16:27 06:39 POC Glucose 229 H 187 H 217 H 10/04/20 10/04/20 10/05/20 12:04 21:09 06:20 POC Glucose 171 H 174 H 227 H 10/05/20 10/06/20 10/06/20 23:03 06:44 16:16 POC Glucose 220 H 238 H 228 H 10/06/20 10/07/20 10/07/20 20:28 06:54 11:34 POC Glucose 231 H 250 H 263 H 10/07/20 10/07/20 10/08/20 16:28 20:31 06:21 POC Glucose 243 H 147 H 227 H 10/08/20 10/08/20 10/08/20 11:47 16:28 20:19 POC Glucose 193 H 281 H 283 H 10/09/20 06:31 POC Glucose 213 H Imaging Diagnostic Imaging Impressions Head CT 09/29/20 12:34 IMPRESSION: No acute intracranial process seen. DS: Summary Hospital Course Hospital Course: The patient is a 65-year-old Micronesian female with a lifelong history of schizoaffective disorder depressed type with several admissions into the hospital for psychotic decompensation and depression. The patient has several ancillary services such as VNA, DM case management services want outpatient services. The patient was initially admitted since she reported an exacerbation of his auditory hallucinations commanding her to kill herself by stabbing with a knife. Also she reported depressive symptoms elicited by depressed mood anhedonia lack of energy and feelings of hopelessness with suicidal ideation. According to the patient there were no new stressors or any new changes of medications. On admission, we decided to continue with her same medications, gather collateral information on ordered blood work. Sees the patient continues to complain of auditory hallucinations on Zyprexa 20 mg p.o. q.h.s. we decided to start a slow titration over these antipsychotic up to 30 mg p.o. q.h.s. with some improvement. The patient reported improvement of her auditory hallucinations, even though that she has had sporadic voices mostly at night but according to her nurse case management, that is her baseline. We did a Lares test in Indonesian and she has court 10 points over 30. It was cleared that her dementia is quite advanced so she would not benefit of Aricept or Namenda. The patient's mood also improved, she was able to participate in groups and there were no evidence of safety concerns. Discharge planning was discussed and all her ancillary services were coordinated. Time spent discussing smoking cessation with patient: 3 to 10 minutes Status at Discharge Cognitive/behavioral status at discharge: As described, her Lares test was 10 points over 30 Functional status at discharge: independent ambulation Overall status at discharge: patient is back to baseline Time Spent with Patient Time attestation: Total time spent providing and/or coordinating discharge services: Time spent: Less than 30 minutes Discharge Plan Discharge Anticipated Discharge Date/Time: 10/09/20 11:11 Patient Disposition: Home, Self-Care Discharge Diagnosis: Schizoaffective disorder depressed type Referrals: Milli Tejeda [Other] - 10/15/20 10:15 am (Telehealth phone therapy appointment scheduled with therapist for 10/15/20 at 10:15am.) [facility] [Other] - 10/10/20 (Once a day nursing visits for medication management to resume. ) Tramaine Gordon MD [Other] - 11/04/20 10:20 am (Hospital follow up psychiatry appointment scheduled for 11/04/20 at 10:20am. This appointment will be telehealth and [facility] to contact you at time of the appointment on 11/04/20 by phone. ) Oneida Lynne NP [Primary Care Provider] - 10/22/20 3:15 pm (Follow up 10/22@3:15p via telephone appt) Discharge Medications: New olanzapine [Zyprexa] 10 mg tablet 10 mg PO BEDTIME 30 Days Qty: 30 RF: 0 olanzapine [Zyprexa] 20 mg tablet 20 mg PO BEDTIME 30 Days Qty: 30 RF: 0 Continued multivitamin Tablet 1 tab PO DAILY Qty: 30 RF: 0 lamotrigine [Lamictal] 150 mg Tablet 150 mg PO DAILY 30 Days Qty: 30 RF: 0 metformin 500 mg tablet 500 mg PO BID Qty: 60 RF: 5 (DME) FreeStyle Lite Strips Strip 1 strip miscellaneous TID Qty: 100 RF: 11 aspirin [Adult Aspirin Regimen] 81 mg tablet,delayed release (DR/EC) 81 mg PO DAILY 30 Days Qty: 30 RF: 11 acetaminophen [Tylenol Extra Strength] 500 mg Tablet 1,000 mg PO Q8H PRN (Reason: Pain) 30 Days Qty: 120 RF: 0 insulin aspart U-100 [Novolog U-100 Insulin aspart] 100 unit/mL Solution 10 unit SUBCUT DAILY@1630 30 Days Qty: 10 RF: 0 lisinopril 10 mg tablet 10 mg PO DAILY Qty: 30 RF: 5 lidocaine [Lidoderm] 5 % Adhesive Patch,Medicated 1 patch TOPICAL DAILY Qty: 30 RF: 0 docusate sodium [Colace] 100 mg capsule 200 mg PO BEDTIME 30 Days Qty: 60 RF: 0 omeprazole 20 mg capsule,delayed release(DR/EC) 20 mg PO DAILY 30 Days Qty: 30 RF: 0 lorazepam [Ativan] 1 mg tablet 1 mg PO TID PRN (Reason: Anxiety) 30 Days Qty: 90 RF: 0 diclofenac sodium 1 % Gel 1 ea TOPICAL QID PRN (Reason: Pain) Qty: 1 RF: 0 (DME) pen needle, diabetic [Unifine Pentips] 32 gauge x 5/32 needle 1 ea miscellaneous TID Qty: 100 RF: 11 (DME) lancets [FreeStyle Lancets] 28 gauge misc 1 gauge topical TID Qty: 100 RF: 11 pioglitazone 30 mg tablet 30 mg PO DAILY Qty: 30 RF: 3 rosuvastatin [Crestor] 40 mg Tablet 40 mg PO DAILY 30 Days Qty: 30 RF: 0 Viibryd 20 mg tablet 20 mg PO DAILY 30 Days Qty: 30 RF: 0 Tresiba FlexTouch U-200 200 unit/mL (3 mL) insulin pen 34 unit subcut DAILY 30 Days Qty: 9 RF: 3 (DME) blood-glucose meter [FreeStyle Lite Meter] Kit See Rx Instructions .ROUTE .MEDSUPPLY Qty: 1 RF: 0 Changed insulin aspart U-100 [Novolog Flexpen U-100 Insulin] 100 unit/mL (3 mL) insulin pen 8 unit subcut DAILY Qty: 10 RF: 0 Discontinued olanzapine 20 mg Tablet 20 mg PO BEDTIME RF: 0 Discharge Orders: Discharge Order (Routine); Ordered 10/09/20 Ordered By: German Sorensen Diet: diabetic diet Activity on Discharge: As tolerated Stand Alone Forms: Patient Portal Discharge page Care Plan Goals: Care Plan Goals from the ED were already achieved in the unit. Health Concerns: Continue treatment with PCP Plan of Treatment: Medication management and psychiatric treatment by [facility] and [facility] team Assessment: The patient is a middle age Puertor[place] female with a long history of Schizoaffective Disorder depressed type with several admissions for psychosis and depression, recently relapsed without a clear stressor with exacerbation of auditory hallucinations commanding her to kill herself. Zyprexa was adjusted up to 30 mg po qhs with fair improvement.
[2020-10-09 09:00] VITALS: BP 128/61; PULSE 89
[2020-10-09] MEDS: Atorvastatin Calcium 80 MG TABLET PO (09:00)
[2020-10-09] MEDS: Acetaminophen 325 MG TABLET 975 MG PO (09:00)
[2020-10-09] MEDS: Pioglitazone HCL 30 MG TABLET PO (09:00)
[2020-10-09] MEDS: lamoTRIgine 100 MG TABLET 150 MG PO (09:01)
[2020-10-09] MEDS: Nicotine 21 MG PATCH.TD24 TRANSDERMA (09:02)
[2020-10-09] MEDS: Insulin Glargine,Hum.rec.anlog 100 UNIT/ML 10 ML VIAL 24 UNIT SUBCUT (09:02)
[2020-10-09] MEDS: Lidocaine 4 % Patch ADH..PATCH 1 PATCH TRANSDERMA (09:02)
[2020-10-09 10:23] LABS: Anion Gap 14 (12-20); Blood Urea Nitrogen 23 mg/dL (9-16); Calcium 10.1 mg/dL (8.4-10.2); Carbon Dioxide 24 mmol/L (22-29); Chloride 103 mmol/L (96-108); Creatinine Clr Calc Pharmacy 45.5; Estimated Glomerular Filt Rate 48; Glucose Random 194 mg/dL (60-115); Sodium 136 mmol/L (135-145)
--- NOTE | 2020-10-09 12:11 | PC.NURSE ---
Patient is alert and oriented x 3. Patient states readiness for discharge today, 10/09/2020. She denies auditory/visual hallucinations as well as suicidal ideation. Patient endorses chronic depression 09/06. Patient reports she will be returning to her home and lists her son as a natural support. Discharge packet reviewed with patient and faxed to providers. Patient's [facility] worker arrived to unit to pick patient up for discharge. Discharge instructions including medications reviewed with [facility] worker. [facility] contacted by both KARENA and RN to ensure patient would be seen this afternoon. [facility]NA confirmed they would see Pt. this afternoon.
== END 2020-10-09 11:15 | disposition home or self-care (01) | DRG 750 ==
LOC: HO.ED 09-30 16:39 → HO.PGERI 09-30 17:50
PROVIDERS: Registered Nurse; Admitting Provider Psychiatry & Neurology Psychiatry; Emergency Provider Emergency Medicine; PCP Nurse Practitioner Family; Visit Provider Psychiatry & Neurology Psychiatry
DX: F25.9 Schizoaffective disorder, unspecified (principal); E11.22 Type 2 diabetes mellitus with diabetic chronic kidney disease; E11.42 Type 2 diabetes mellitus with diabetic polyneuropathy; R45.851 Suicidal ideations; I25.10 Atherosclerotic heart disease of native coronary artery without angina pectoris; E78.5 Hyperlipidemia, unspecified; I12.9 Hypertensive chronic kidney disease with stage 1 through stage 4 chronic kidney disease, or unspecified chronic kidney disease; N18.30 Chronic kidney disease, stage 3 unspecified; Z20.822 Contact with and (suspected) exposure to COVID-19; F17.210 Nicotine dependence, cigarettes, uncomplicated; Z71.6 Tobacco abuse counseling; Z79.4 Long term (current) use of insulin; Z79.82 Long term (current) use of aspirin; Z79.899 Other long term (current) drug therapy
CPT/HCPCS: 36415; 70450; 80048; 80061; 80076; 80307; 81003; 82947; 83036; 83690; 84484; 85025; 87635; 93005; 99285

== ENCOUNTER 2021-01-28 14:39 | Emergency (ER) | payer MEDICARE, MEDICAID, SELFPAY ==
--- NOTE | ~2021-01-28 | CT_ITS ---
EXAMINATION: CT ABDOMEN AND PELVIS WITH CONTRAST CLINICAL INFORMATION: Pancreatitis, abdominal pain COMPARISON: Abdomen pelvis CT on 07/16/2018 TECHNIQUE: Multidetector volumetric images were obtained from the superior aspect of the liver through the pubic symphysis following administration 85 mL of Omnipaque 350 intravenous contrast. Sagittal and coronal reformatted images were obtained on the technologist's workstation. Oral contrast: No This CT examination was performed using dose optimization techniques as appropriate, variously including the following: *Automated exposure control *Adjustment of mA and/or kV according to patient size (this includes techniques or standardized protocols for targeted exams where dose is matched to indication/reason for exam; i.e. extremities or head) *Use of iterative reconstruction technique DLP: 575 mGy-cm FINDINGS: LUNG BASES: Bibasilar atelectasis. LIVER, GALLBLADDER, AND BILIARY TREE: The liver is normal in size, shape, and attenuation. No focal hepatic lesion or biliary ductal dilatation is present. The gallbladder is unremarkable with no evidence of radiopaque gallstones, gallbladder wall thickening, or obvious pericholecystic inflammatory changes. PANCREAS: Unremarkable. SPLEEN: Unremarkable. ADRENAL GLANDS: Unremarkable. KIDNEYS AND URETERS: The kidneys are normal in size, shape, and attenuation. No hydronephrosis, hydroureter, or calculi seen. No perinephric stranding. BLADDER: Unremarkable. GASTROINTESTINAL TRACT: The small and large bowel are unremarkable. Redemonstration of right colon lipoma, incidental. ABDOMINAL WALL: No significant hernia is appreciated. LYMPH NODES: Normal. VASCULAR: The abdominal aorta is normal in caliber. There is mild calcific atherosclerotic disease. PELVIC VISCERA: Unremarkable. Coarse calcification in the left adnexa. OSSEOUS STRUCTURES: Degenerative disease of the lumbar spine. CT/CT abdomen pelvis w con IMPRESSION: No significant abnormality.
[2021-01-28 14:45] VITALS: BP 119/67; PULSE 79; RESP 18; TEMP 37; O2SAT 96; BMI 34.3
[2021-01-28 15:49] LABS: Hematocrit 39.3 % (37.0-47.0); Hemoglobin 12.6 g/dl (12.0-16.0); Mean Corpuscular HGB Conc 32.1 g/dl (31.0-35.0); Mean Corpuscular Volume 84.3 fL (80.0-98.0); Mean Platelet Volume 12.6 fL (9.4-12.3); Platelet Count 182 X10*3/uL (160-400); Red Blood Count 4.66 X10*6/uL (4.20-5.50); Red Cell Distribution Width 13.9 % (11.0-16.0); White Blood Count 13.7 X10*3/uL (4.8-10.8)
[2021-01-28 15:59] VITALS: BP 126/54; PULSE 73; RESP 16; TEMP 36.7; O2SAT 98
[2021-01-28 16:05] LABS: Anion Gap 12 (12-20); Blood Urea Nitrogen 12 mg/dL (9-16); Calcium 9.5 mg/dL (8.4-10.2); Carbon Dioxide 26 mmol/L (22-29); Creatinine Clr Calc Pharmacy 51.3; Estimated Glomerular Filt Rate 54; Glucose Random 114 mg/dL (60-115); Lipase 294 U/L (8-78); Potassium 3.8 mmol/L (3.3-5.1); Sodium 136 mmol/L (135-145)
[2021-01-28 16:12] LABS: Alanine Aminotransferase 11 U/L (0-31); Albumin Level 4.1 g/dL (3.5-5.0); Alkaline Phosphatase 91 U/L (39-117); Aspartate Amino Transferase 11 U/L (5-31); Bilirubin Direct < 0.2 mg/dL (0.0-0.5); Bilirubin Total 0.2 mg/dL (0.0-1.0); Total Protein 7.3 g/dL (6.5-8.0)
[2021-01-28 16:23] LABS: Chloride 102 mmol/L (96-108)
--- NOTE | 2021-01-28 17:05 | ED.GENADULT ---
HPI - General Adult General Chief complaint: Recheck/Abnormal Lab/Rx Stated complaint: ABNORMAL LABS Time Seen by Provider: 01/28/21 15:53 Source: patient Mode of arrival: ambulatory Limitations: no limitations History of Present Illness HPI narrative: Patient comes to the emergency room, states that her primary care physician asked her to come for further evaluation. Patient states that several days ago she had blood work done, today she received a phone call from her PCP, was informed that her lipase is elevated and may have pancreatitis. Patient states that for the last week, she has been having intermittent abdominal pain, occasional nausea. Patient states the last time her abdomen hurt was approximately 1 week ago. At this time, patient states she has no pain in the abdomen. Patient denies fever, chills, no diarrhea. Related Data Previous Rx's Medication Instructions Recorded blood-glucose meter (FreeStyle #1 ea 04/29/20 Lite Meter) acetaminophen 500 mg tablet 1,000 mg PO Q8H PRN 30 Days #120 10/09/20 (Tylenol Extra Strength) tab aspirin 81 mg tablet,delayed 81 mg PO DAILY 30 Days #30 tab 10/09/20 release (Adult Aspirin Regimen) blood sugar diagnostic (FreeStyle #100 ea 10/09/20 Lite Strips) diclofenac sodium 1 % topical gel 1 ea TOPICAL QID PRN #1 g 10/09/20 docusate sodium 100 mg capsule 200 mg PO BEDTIME 30 Days #60 cap 10/09/20 (Colace) insulin aspart U-100 100 unit/mL 8 unit (0.08 mL) SUBCUT DAILY #10 10/09/20 (3 mL) subcutaneous pen (Novolog ml Flexpen U-100 Insulin aspart) insulin aspart U-100 100 unit/mL 10 unit (0.1 mL) SUBCUT DAILY@1630 10/09/20 subcutaneous solution (Novolog 30 Days #10 ml U-100 Insulin aspart) insulin degludec 200 unit/mL (3 34 unit (0.17 mL) SUBCUT DAILY 30 10/09/20 mL) subcutaneous pen (Tresiba Days #9 ml FlexTouch U-200 insulin) lamotrigine 150 mg tablet 150 mg PO DAILY 30 Days #30 tab 10/09/20 (Lamictal) lancets 28 gauge (FreeStyle #100 ea 10/09/20 Lancets) lidocaine 5 % topical patch 1 patch TOPICAL DAILY #30 ea 10/09/20 (Lidoderm) lisinopril 10 mg tablet 10 mg PO DAILY #30 tab 10/09/20 lorazepam 1 mg tablet (Ativan) 1 mg PO TID PRN 30 Days #90 tab 10/09/20 metformin 500 mg tablet 500 mg PO BID #60 tab 10/09/20 multivitamin 1 tab PO DAILY #30 tab 10/09/20 olanzapine 10 mg tablet (Zyprexa) 10 mg PO BEDTIME 30 Days #30 tab 10/09/20 olanzapine 20 mg tablet (Zyprexa) 20 mg PO BEDTIME 30 Days #30 tab 10/09/20 omeprazole 20 mg capsule,delayed 20 mg PO DAILY 30 Days #30 cap 10/09/20 release pen needle, diabetic 32 gauge x #100 ea 10/09/20 (Unifine Pentips) pioglitazone 30 mg tablet 30 mg PO DAILY #30 tab 10/09/20 rosuvastatin 40 mg tablet (Crestor) 40 mg PO DAILY 30 Days #30 tab 10/09/20 vilazodone 20 mg tablet (Viibryd) 20 mg PO DAILY 30 Days #30 tab 10/09/20 Allergies Allergy/AdvReac Type Severity Reaction Status Date / Time duloxetine [Cymbalta] Allergy Unknown Unknown Verified 10/07/20 20:35 hydroxyzine Allergy Unknown unknown Verified 10/07/20 20:35 risperidone Allergy Unknown Unknown Verified 10/07/20 20:35 trazodone Allergy Unknown Unknown Verified 10/07/20 20:35 quetiapine [From SEROQUEL] AdvReac Severe Acute Verified 10/07/20 20:35 Dystonic reaction Review of Systems Review of Systems: Constitutional : No Weight loss, No Fever, No Chills, No Night Sweats, No Fatigue, No Malaise ENT/Mouth : No Hearing loss, No Ear Pain, No Nasal Congestion, No Sinus Pain, No Hoarseness, No sore throat, No Rhinorrhea, No Swallowing Difficulty Eyes: No Eye Pain, No Swelling, No Redness, No Foreign Body, No Discharge, No Vision Changes Cardiovascular : No Chest Pain, No SOB, No Dyspnea on Exertion, No Orthopnea, No Edema, No Palpitations Respiratory : No Cough, No Sputum, No Wheezing, No Smoke Exposure, No Dyspnea Gastrointestinal : Complaining of intermittent nausea, No Vomiting, No Diarrhea, No Constipation, intermittent abdominal pain, No Hematochezia, No Melena Genitourinary : no irregular bleeding, No Dysuria, No Urinary Frequency, No Hematuria, No Urinary Incontinence, No Urgency, No Flank Pain, No Urinary Flow Changes, No Hesitancy Musculoskeletal : Chronic right leg pain, No Myalgias, No Joint Swelling Skin : No Skin Lesions, No rash Neuro : No Weakness, No Numbness, No Paresthesias, No Loss of Consciousness, No Dizziness, No Headache Psych : No Anxiety/Panic, No Depression, No SI/HI/AH/VH, No Social Issues, Heme/Lymph: No Bruising, No Bleeding,No Lymphadenopathy Endocrine : No Polyuria, No Polydipsia, No Temperature Intolerance PMFSH Past Medical History Medical History CAD (coronary artery disease) Chronic kidney disease, stage 3 unspecified Dementia Depression with anxiety Dermatitis Dermatophytosis Diabetes mellitus with hyperglycemia Dyslipidemia Essential hypertension Joint pain PTSD (post-traumatic stress disorder) Schizoaffective disorder Smoking 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 Mother No problems noted. Social History Social History Household Members: None Household Members Other:: has [facility] Services Housing: Apartment Do you presently have visiting nurse or other home services: No Alcohol intake: unknown Patient Tobacco Use Status: Current everyday Tobacco user Tobacco use type: Cigarette Second Hand Smoke Exposure: No Use of substances other than those prescribed or required for medical reasons: Unknown Advance Directives: Yes Advance Directives on File: Yes Advance Directives Date on File: 09/30/20 service: No Sexual orientation: Straight/Heterosexual Physical Exam Vital Signs: Vital Signs: Last Vital Signs Temp 98.0 F 01/28/21 15:59 Pulse 73 01/28/21 15:59 Resp 16 01/28/21 15:59 BP 126/54 L 01/28/21 15:59 Pulse Ox 98 01/28/21 15:59 BMI result Body Mass Index 34.3 Const: Other: Appearance: Alert. Oriented X3. No acute distress. Eyes: Pupils equal, round and reactive to light. ENT: Pharynx normal. Neck: Normal inspection. Neck supple. No lymph nodes noted. No crepitus CVS: Normal heart rate and rhythm. Pulses normal. Normal S1 and S2 Respiratory: No respiratory distress. Breath sounds normal. No Wheezing. No rales Abdomen: Soft and nontender. No rigidity. No distention. good BS x4 Skin: Skin warm and dry. Normal skin color. Normal skin turgor. Extremities: No lower extremity edema. Pain to right knee flexion and extension, per patient chronic at baseline. No Lacerations. No Rash Neuro: Oriented X 3. No motor deficit. No sensory deficit. Moving all extermities. No slurred speech. Course Course Course Narrative: Patient's lipase is elevated. However, patient has no abdominal tenderness and has not had any symptoms for [address] scan is negative for pancreatitis. I discussed with the patient that she can go home but if her symptoms return she needs to return immediately to the emergency room. Patient agrees with plan. Patient asked to stay on a liquid diet for a few days and gradually advance her diet Patient has trace leukocyte esterase in the urine. Patient has no UTI symptoms, at this time no treatment needed Medical Decision Making Lab Data Result diagrams: 01/28/21 15:40 01/28/21 15:40 Labs: Lab Results 01/28/21 01/28/21 01/28/21 Range/Units 15:40 15:40 17:09 WBC 13.7 H (4.8-10.8) X10*3/uL RBC 4.66 (4.20-5.50) X10*6/uL Hgb 12.6 (12.0-16.0) g/dl Hct 39.3 (37.0-47.0) % MCV 84.3 (80.0-98.0) fL MCH 27.0 (27.0-33.0) pg MCHC 32.1 (31.0-35.0) g/dl RDW 13.9 (11.0-16.0) % Plt Count 182 (160-400) X10*3/uL MPV 12.6 H (9.4-12.3) fL Absolute Nucleated RBC 0.000 (0.0-0.012) X10*3/uL Nucleated RBC % (auto) 0.0 (0.0-0.2) /100WBC Sodium 136 (135-145) mmol/L Potassium 3.8 D (3.3-5.1) mmol/L Chloride 102 (96-108) mmol/L Carbon Dioxide 26 (22-29) mmol/L Anion Gap 12 (12-20) BUN 12 (9-16) mg/dL Creatinine 1.02 (0.5-1.4) mg/dL Estim Creat Clear Calc 51.3 Estimated GFR 54 Random Glucose 114 (60-115) mg/dL Calcium 9.5 (8.4-10.2) mg/dL Total Bilirubin 0.2 (0.0-1.0) mg/dL Direct Bilirubin < 0.2 (0.0-0.5) mg/dL AST 11 (5-31) U/L ALT 11 (0-31) U/L Alkaline Phosphatase 91 (39-117) U/L Total Protein 7.3 (6.5-8.0) g/dL Albumin 4.1 (3.5-5.0) g/dL Lipase 294 H (8-78) U/L Urine Color STRAW Urine Appearance CLEAR Urine pH 6.0 (5.0-8.0) Ur Specific Bittinger <= 1.005 (1.005-1.025) Urine Protein NEG (NEG-TRACE) MG/DL Urine Glucose (UA) NEG (NEG) MG/DL Urine Ketones NEG (NEG) MG/DL Urine Blood NEG (NEG) Urine Nitrite NEG (NEG) Ur Leukocyte Esterase TRACE H (NEG) Urine RBC 0-2 (0) /HPF Urine WBC 0-2 (0-4) /HPF Ur Squamous Epith Cells 1+ /LPF Tyrosine Crystals TRACE /LPF Urine Bacteria TRACE /LPF Urine Mucus 1+ /LPF Imaging Data CT scan - abdomen: Radiologist's impression: FINDINGS: LUNG BASES: Bibasilar atelectasis.? LIVER, GALLBLADDER, AND BILIARY TREE: The liver is normal in size, shape, and attenuation. No focal hepatic lesion or biliary ductal dilatation is present. The gallbladder is unremarkable with no evidence of radiopaque gallstones, gallbladder wall thickening, or obvious pericholecystic inflammatory changes.? PANCREAS: Unremarkable.? SPLEEN: Unremarkable.? ADRENAL GLANDS: Unremarkable.? KIDNEYS AND URETERS: The kidneys are normal in size, shape, and attenuation. No hydronephrosis, hydroureter, or calculi seen. No perinephric stranding. ? BLADDER: Unremarkable.? GASTROINTESTINAL TRACT: The small and large bowel are unremarkable. Redemonstration of right colon lipoma, incidental. ABDOMINAL WALL: No significant hernia is appreciated.? LYMPH NODES: Normal. VASCULAR: The abdominal aorta is normal in caliber. There is mild calcific atherosclerotic disease. PELVIC VISCERA: Unremarkable. Coarse calcification in the left adnexa. OSSEOUS STRUCTURES: Degenerative disease of the lumbar spine.? CT/CT abdomen pelvis w con IMPRESSION: No significant abnormality.? ? Discharge Plan Discharge Clinical Impression: Abnormal laboratory test Patient Disposition: Home, Self-Care Instructions: Pancreatitis (ED), Full Liquid Diet (DC) Additional Instructions: Please follow-up with your primary care physician tomorrow. If you have any worsening or new symptoms, please return to the emergency room or call 911 Prescriptions: No Action olanzapine [Zyprexa] 10 mg tablet 10 mg PO BEDTIME 30 Days Qty: 30 RF: 0 olanzapine [Zyprexa] 20 mg tablet 20 mg PO BEDTIME 30 Days Qty: 30 RF: 0 multivitamin Tablet 1 tab PO DAILY Qty: 30 RF: 0 lamotrigine [Lamictal] 150 mg Tablet 150 mg PO DAILY 30 Days Qty: 30 RF: 0 metformin 500 mg tablet 500 mg PO BID Qty: 60 RF: 5 (DME) FreeStyle Lite Strips Strip 1 strip miscellaneous TID Qty: 100 RF: 11 aspirin [Adult Aspirin Regimen] 81 mg tablet,delayed release (DR/EC) 81 mg PO DAILY 30 Days Qty: 30 RF: 11 acetaminophen [Tylenol Extra Strength] 500 mg Tablet 1,000 mg PO Q8H PRN (Reason: Pain) 30 Days Qty: 120 RF: 0 insulin aspart U-100 [Novolog U-100 Insulin aspart] 100 unit/mL Solution 10 unit SUBCUT DAILY@1630 30 Days Qty: 10 RF: 0 lisinopril 10 mg tablet 10 mg PO DAILY Qty: 30 RF: 5 lidocaine [Lidoderm] 5 % Adhesive Patch,Medicated 1 patch TOPICAL DAILY Qty: 30 RF: 0 docusate sodium [Colace] 100 mg capsule 200 mg PO BEDTIME 30 Days Qty: 60 RF: 0 omeprazole 20 mg capsule,delayed release(DR/EC) 20 mg PO DAILY 30 Days Qty: 30 RF: 0 lorazepam [Ativan] 1 mg tablet 1 mg PO TID PRN (Reason: Anxiety) 30 Days Qty: 90 RF: 0 insulin aspart U-100 [Novolog Flexpen U-100 Insulin] 100 unit/mL (3 mL) insulin pen 8 unit subcut DAILY Qty: 10 RF: 0 diclofenac sodium 1 % Gel 1 ea TOPICAL QID PRN (Reason: Pain) Qty: 1 RF: 0 (DME) pen needle, diabetic [Unifine Pentips] 32 gauge x 5/32 needle 1 ea miscellaneous TID Qty: 100 RF: 11 (DME) lancets [FreeStyle Lancets] 28 gauge misc 1 gauge topical TID Qty: 100 RF: 11 pioglitazone 30 mg tablet 30 mg PO DAILY Qty: 30 RF: 3 rosuvastatin [Crestor] 40 mg Tablet 40 mg PO DAILY 30 Days Qty: 30 RF: 0 Viibryd 20 mg tablet 20 mg PO DAILY 30 Days Qty: 30 RF: 0 Tresiba FlexTouch U-200 200 unit/mL (3 mL) insulin pen 34 unit subcut DAILY 30 Days Qty: 9 RF: 3 (DME) blood-glucose meter [FreeStyle Lite Meter] Kit See Rx Instructions .ROUTE .MEDSUPPLY Qty: 1 RF: 0
[2021-01-28 17:16] LABS: Appearance Urine CLEAR; Color Urine STRAW; Glucose Urine UA NEG (NEG); Leukocyte Esterase Urine TRACE (NEG); Nitrite Urine NEG (NEG); Specific Gravity - Urine <= 1.005 (1.005-1.025); UACC Culture Trigger YES; Urine Blood NEG (NEG); Urine Ketones NEG (NEG); Urine Protein NEG (NEG-TRACE)
[2021-01-28 17:29] LABS: Tyrosine Crystal Urine TRACE /LPF
[2021-01-28 17:30] LABS: Bacteria Urine TRACE /LPF; Mucus Urine 1+ /LPF; RBC Urine 0-2 /HPF (0); Squamous Epithelial Cell Urine 1+ /LPF; WBC Urine 0-2 /HPF (0-4)
[2021-01-28] MEDS: iohexoL 350 MG/ML 100 ML INFUS..BTL IV (17:44)
[2021-01-28 19:19] VITALS: BP 137/69; PULSE 78; RESP 18; O2SAT 96
== END 2021-01-28 19:25 | disposition home or self-care (01) ==
PROVIDERS: Emergency Provider Emergency Medicine; PCP Nurse Practitioner Family
DX: R10.9 Unspecified abdominal pain (principal); R79.89 Other specified abnormal findings of blood chemistry; F17.210 Nicotine dependence, cigarettes, uncomplicated; Z71.6 Tobacco abuse counseling; Z79.899 Other long term (current) drug therapy
CPT/HCPCS: 36415; 74177; 80048; 80076; 81001; 83690; 85027; 87086; 99284; Q9967

== ENCOUNTER 2021-02-03 15:26 | Outpatient (REF) | payer MEDICARE, MEDICAID, SELFPAY ==
--- NOTE | ~2021-02-03 | CT_ITS ---
EXAMINATION: CT ABDOMEN WITH CONTRAST CLINICAL INFORMATION: Epigastric pain. COMPARISON: CT abdomen and pelvis 01/28/2021. TECHNIQUE: Contiguous axial thin section helical images of the abdomen were performed following the administration of oral contrast and 85 mL of Omnipaque 350 intravenous contrast. The data set was reformatted in the coronal and sagittal planes and reviewed on an independent workstation. This CT examination was performed using dose optimization techniques as appropriate, variously including the following: *Automated exposure control *Adjustment of mA and/or kV according to patient size (this includes techniques or standardized protocols for targeted exams where dose is matched to indication/reason for exam; i.e. extremities or head) *Use of iterative reconstruction technique DLP: 384 mGy-cm FINDINGS: LUNG BASES: There is bibasilar patchy atelectasis or infiltrates right greater than left. The right lung base infiltrate is slightly increased from 01/28/2021. Heart size is normal. LIVER, GALLBLADDER, AND BILIARY TREE: The liver is homogeneous in density, normal size and contour. No focal lesion or intrahepatic ductal dilatation seen. The gallbladder is contracted and appears unremarkable. PANCREAS: The pancreas is normal size and density. No focal lesion or peripancreatic fluid collection. SPLEEN: The spleen is unremarkable. ADRENAL GLANDS AND KIDNEYS: The adrenal glands unremarkable. Both kidneys are normal size, shape and position. No radiopaque calculi or hydronephrosis seen. No enhancing renal mass or cyst. No perinephric stranding. BOWEL LOOPS: There is scattered stool seen throughout the colon without significant distention. Again visualized is a right colon small lipoma. Oral contrast opacified small bowel loops are normal caliber. The stomach is mildly distended with recently ingested food. The appendix is normal caliber. LYMPH NODES: No abnormal-sized retroperitoneal or mesenteric lymph node seen. VASCULAR: There is atherosclerotic changes of abdominal without aneurysmal dilatation. BONES: There are degenerative disc changes with vacuum disc phenomena at L3-L4 and L5-S1 disc levels with endplate Schmorl's node and sclerosis L5-S1 disc levels. CT/CT abdomen w con IMPRESSION: No acute intra-abdominal process seen. The gallbladder is contracted. No change in small ascending colon lipoma.
[2021-02-03] MEDS: iohexoL 350 MG/ML 100 ML INFUS..BTL IV (17:32)
== END 2021-02-03 15:27 | disposition home or self-care (01) ==
LOC: HO.CT 15:26
PROVIDERS: Visit Provider Nurse Practitioner Family
DX: R10.13 Epigastric pain (principal)
CPT/HCPCS: 74160; Q9967

== ENCOUNTER → 2021-03-03 13:57 | Outpatient (BNVA) | payer MEDICARE, MEDICAID, SELFPAY | PROVIDERS: PCP Nurse Practitioner Family; Visit Provider Nurse Practitioner Gerontology | DX: E11.65 Type 2 diabetes mellitus with hyperglycemia (principal); E11.22 Type 2 diabetes mellitus with diabetic chronic kidney disease; N18.30 Chronic kidney disease, stage 3 unspecified; E78.5 Hyperlipidemia, unspecified; Z79.4 Long term (current) use of insulin | CPT/HCPCS: 82947; 83036; 99212 ==

== ENCOUNTER 2021-03-04 10:32 | Emergency (ER) | payer MEDICARE, MEDICAID, SELFPAY ==
--- NOTE | ~2021-03-04 | XR_ITS ---
EXAMINATION: BILATERAL FEET CLINICAL INFORMATION: Fall with pain COMPARISON: None TECHNIQUE: 3 views of each foot FINDINGS: Right foot: There is no evidence of acute fracture or dislocation of the right foot. No destructive bony lesions identified. Joint spaces are generally maintained. Plantar calcaneal spur is present. Left foot: No acute fracture or dislocation is identified. Some lucent lines are seen overlying the head of the second proximal phalanx which appear to be related to overlying soft tissues. Joint spaces are generally maintained with some mild narrowing of the first interphalangeal joint. There is a small plantar calcaneal spur present. XR/XR foot RT min 3V IMPRESSION: Plantar calcaneal spurs. No acute fracture or dislocation of the right or left feet identified. Calcaneal spurs.
--- NOTE | ~2021-03-04 | CT_ITS ---
EXAMINATION: CT HEAD WITHOUT CONTRAST CLINICAL INFORMATION: Fall, trauma COMPARISON: CT head noncontrast 09/29/2020 TECHNIQUE: Contiguous axial imaging was performed from the skull base to vertex without intravenous administration of contrast. Additional 2-D coronal and sagittal reformatted images are generated on the CT workstation and uploaded to PACS. This CT examination was performed using dose optimization techniques as appropriate, variously including the following: *Automated exposure control *Adjustment of mA and/or kV according to patient size (this includes techniques or standardized protocols for targeted exams where dose is matched to indication/reason for exam; i.e. extremities or head) *Use of iterative reconstruction technique DLP: 627 mGy-cm FINDINGS: There is no intracranial hemorrhage, hematoma, or extra-axial fluid collection. The ventricles are normal in size. There is no hydrocephalus, edema, or mass effect. The franco-white matter differentiation appears well preserved . There is no visible acute territorial infarct or mass lesion. The calvarium appears intact. There is no pneumocephalus or orbital emphysema. There is mild mucosal thickening bilateral sphenoid sinuses. No air-fluid levels in the sinuses, middle ears, or mastoids. There is under pneumatization right mastoid. No bony destructive process or sclerosis. CT/CT head/brain wo con IMPRESSION: No acute intracranial abnormality.
--- NOTE | ~2021-03-04 | CT_ITS ---
EXAMINATION: CT CERVICAL SPINE WITHOUT CONTRAST CLINICAL INFORMATION: Fall, trauma COMPARISON: CT head 03/04/2021, CT cervical spine 02/18/2012 TECHNIQUE: Multidetector volumetric CT imaging of the cervical spine is performed without contrast in the axial plane. Additional 2D reformatted coronal and sagittal images are generated on the CT workstation and uploaded to PACS. This CT examination was performed using dose optimization techniques as appropriate, variously including the following: *Automated exposure control *Adjustment of mA and/or kV according to patient size (this includes techniques or standardized protocols for targeted exams where dose is matched to indication/reason for exam; i.e. extremities or head) *Use of iterative reconstruction technique DLP: 516 mGy-cm FINDINGS: There is no vertebral compression fracture, fracture line, spondylolisthesis, or prevertebral soft tissue swelling. The craniocervical junction appears normal. The odontoid appears intact. There is straightening cervical lordosis. There are degenerative disc changes C5-C6 with disc narrowing and endplate sclerosis and vertebral spurring. Lesser degenerative disc changes at C6-C7. No perched facet. There is no apical pneumothorax. CT/CT cervical spine wo con IMPRESSION: 1. No acute bony abnormality or prevertebral soft tissue swelling. 2. Straightening cervical lordosis with degenerative disc changes C5-C6.
--- NOTE | ~2021-03-04 | XR_ITS ---
EXAMINATION: BILATERAL FEET CLINICAL INFORMATION: Fall with pain COMPARISON: None TECHNIQUE: 3 views of each foot FINDINGS: Right foot: There is no evidence of acute fracture or dislocation of the right foot. No destructive bony lesions identified. Joint spaces are generally maintained. Plantar calcaneal spur is present. Left foot: No acute fracture or dislocation is identified. Some lucent lines are seen overlying the head of the second proximal phalanx which appear to be related to overlying soft tissues. Joint spaces are generally maintained with some mild narrowing of the first interphalangeal joint. There is a small plantar calcaneal spur present. XR/XR foot LT min 3V IMPRESSION: Plantar calcaneal spurs. No acute fracture or dislocation of the right or left feet identified. Calcaneal spurs.
[2021-03-04 10:43] VITALS: BP 158/80; PULSE 112; O2SAT 98
[2021-03-04 11:55] VITALS: BP 115/52; PULSE 93; RESP 18; TEMP 37.2; O2SAT 96; BMI 29.2
--- NOTE | 2021-03-04 15:34 | ED.FALL ---
HPI - Fall General Chief Complaint: Fall Stated Complaint: FALL DOWN STEPS, MARIANA/LEG PAIN Time Seen by Provider: 03/04/21 14:54 Source: patient Mode of arrival: wheelchair History of Present Illness HPI Narrative: 66-year-old female states she is ambulating she slipped on ice and fell forward onto herHer hands and knees. She is complaining of bilateral foot pain. She initially denied hitting her head but when I talked patient states she did hit her head. She denies loss of consciousness and is complaining of low back pain is her main complaint. She denies chest pain cough fever nausea vomiting or diarrhea. She denies loss of consciousness MD complaint: fall Related Data Home Medications Medication Instructions Recorded Confirmed atorvastatin 80 mg tablet 1 tab PO DAILY 03/04/21 03/04/21 lamotrigine 200 mg tablet 1 tab PO DAILY 03/04/21 03/04/21 vilazodone 40 mg tablet (Viibryd) 1 tab PO DAILY 03/04/21 03/04/21 Previous Rx's Medication Instructions Recorded acetaminophen 500 mg tablet 1,000 mg PO Q8H PRN 30 Days #120 10/09/20 (Tylenol Extra Strength) tab aspirin 81 mg tablet,delayed 81 mg PO DAILY 30 Days #30 tab 10/09/20 release (Adult Aspirin Regimen) diclofenac sodium 1 % topical gel 1 ea TOPICAL QID PRN #1 g 10/09/20 insulin degludec 200 unit/mL (3 34 unit (0.17 mL) SUBCUT DAILY 30 10/09/20 mL) subcutaneous pen ( #9 ml FlexTouch U-200 insulin) lancets 28 gauge (FreeStyle #100 ea 10/09/20 Lancets) lisinopril 10 mg tablet 10 mg PO DAILY #30 tab 10/09/20 lorazepam 1 mg tablet (Ativan) 1 mg PO TID PRN 30 Days #90 tab 10/09/20 metformin 500 mg tablet 500 mg PO BID #60 tab 10/09/20 multivitamin 1 tab PO DAILY #30 tab 10/09/20 olanzapine 20 mg tablet (Zyprexa) 20 mg PO BEDTIME 30 Days #30 tab 10/09/20 omeprazole 20 mg capsule,delayed 20 mg PO DAILY 30 Days #30 cap 10/09/20 release pen needle, diabetic 32 gauge x #100 ea 08/12/21 5/32 (Unifine Pentips) pioglitazone 30 mg tablet 30 mg PO DAILY #30 tab 10/09/20 repaglinide 2 mg tablet 2 mg PO .COMPLEX #90 tab 03/03/21 Allergies Allergy/AdvReac Type Severity Reaction Status Date / Time duloxetine [Cymbalta] Allergy Unknown Unknown Verified 03/04/21 11:54 hydroxyzine Allergy Unknown unknown Verified 03/04/21 11:54 risperidone Allergy Unknown Unknown Verified 03/04/21 11:54 trazodone Allergy Unknown Unknown Verified 03/04/21 11:54 quetiapine [From SEROQUEL] AdvReac Severe Acute Verified 03/04/21 11:54 Dystonic reaction Review of Systems Review of Systems: Review of systems: General: Patient denies any fever chills recent illness Musculoskeletal: Low back pain or body aches or other injuries HEENT: denies headache, runny nose, ear pain Respiratory: denies shortness of breath, cough Cardiovascular: no chest pain or palpitations : denies dysuria, frequency Abdomen: no nausea vomiting denies abdominal pain Extremities: no swelling, no pain Skin: no diaphoresis Yes all other systems are reviewed and are negative PMFSH Past Medical History Medical History CAD (coronary artery disease) Chronic kidney disease, stage 3 unspecified Dementia Depression with anxiety Dermatitis Dermatophytosis Diabetes mellitus with hyperglycemia Dyslipidemia Essential hypertension Joint pain PTSD (post-traumatic stress disorder) Schizoaffective disorder Smoking 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 Mother No problems noted. Social History Social History Household Members: None Household Members Other:: has [facility]D Services Housing: Apartment Do you presently have visiting nurse or other home services: No Alcohol intake: unknown Patient Tobacco Use Status: Current everyday Tobacco user Tobacco use type: Cigarette Second Hand Smoke Exposure: No Advance Directives: Yes Advance Directives on File: Yes Advance Directives Date on File: 09/30/20 service: No Sexual orientation: Straight/Heterosexual Physical Exam Vital Signs: Vital Signs: Last Vital Signs Temp 98.9 F 03/04/21 11:55 Pulse 93 03/04/21 11:55 Resp 18 03/04/21 11:55 BP 115/52 L 03/04/21 11:55 Pulse Ox 96 03/04/21 11:55 BMI result Body Mass Index 29.2 Neurological exam: CN II- XII tested. Patient is alert and oriented to person place and time. Patient has no dysphagia or dysarthia, denies good vision in all four vision rose no nystagmus on exam, good strength to upper and lower extremities with normal reflexes to brachioradialis, wrist, patella and achilles. Negative romberg, good finger to nose and heel to hatfield. General: Well-appearing well-nourished in no signs of distress HEENT: Normocephalic atraumatic no hemotympanum no septal hematoma no signs trauma Neck: No signs of JVD, no masses no tenderness or lymphadenopathy Cardiovascular: Regular rate and rhythm Respiratory: Clear to auscultation bilaterally Abdomen: Soft nontender no masses Extremities: Normal pedal pulses no signs of edema no tenderness to palpation of either foot ankle hatfield knee or hip bilaterally Skin: Dry warm no rashes Back: No tenderness to midline of entire spine full ROM MDM - Fall MDM Narrative Medical decision making narrative: I will give patient for CT head neck I will check some general labs he did fall and I will get x-rays on her feet. I will treat patient's pain with Tylenol. 171 patient has been asking to leave since she read the CT and x-rays were all negative I will discharge the patient home. Discharge Plan Discharge Clinical Impression: Fall, Concussion, Bilateral foot pain Patient Disposition: Home, Self-Care Instructions: Arthralgia (ED), Concussion (ED), Fall Prevention (ED), Fall Prevention for Older Adults (ED) Additional Instructions: Your x-ray and CTs were all negative please call follow-up with her doctor if you have any other concerns please do not hesitate to come back to the emergency department. Prescriptions: No Action olanzapine [Zyprexa] 20 mg tablet 20 mg PO BEDTIME 30 Days Qty: 30 RF: 0 multivitamin Tablet 1 tab PO DAILY Qty: 30 RF: 0 metformin 500 mg tablet 500 mg PO BID Qty: 60 RF: 5 aspirin [Adult Aspirin Regimen] 81 mg tablet,delayed release (DR/EC) 81 mg PO DAILY 30 Days Qty: 30 RF: 11 acetaminophen [Tylenol Extra Strength] 500 mg Tablet 1,000 mg PO Q8H PRN (Reason: Pain) 30 Days Qty: 120 RF: 0 lisinopril 10 mg tablet 10 mg PO DAILY Qty: 30 RF: 5 omeprazole 20 mg capsule,delayed release(DR/EC) 20 mg PO DAILY 30 Days Qty: 30 RF: 0 lorazepam [Ativan] 1 mg tablet 1 mg PO TID PRN (Reason: Anxiety) 30 Days Qty: 90 RF: 0 diclofenac sodium 1 % Gel 1 ea TOPICAL QID PRN (Reason: Pain) Qty: 1 RF: 0 (DME) pen needle, diabetic [Unifine Pentips] 32 gauge x 5/32 needle 1 ea miscellaneous TID Qty: 100 RF: 11 (DME) lancets [FreeStyle Lancets] 28 gauge misc 1 gauge topical TID Qty: 100 RF: 11 pioglitazone 30 mg tablet 30 mg PO DAILY Qty: 30 RF: 3 Tresiba FlexTouch U-200 200 unit/mL (3 mL) insulin pen 34 unit subcut DAILY 30 Days Qty: 9 RF: 3 atorvastatin 80 mg tablet 1 tab PO DAILY RF: 0 lamotrigine 200 mg tablet 1 tab PO DAILY RF: 0 Viibryd 40 mg tablet 1 tab PO DAILY RF: 0 repaglinide 2 mg tablet 2 mg PO .COMPLEX Qty: 90 RF: 6
[2021-03-04] MEDS: Acetaminophen 325 MG TABLET 650 MG PO (16:29)
[2021-03-04 17:28] LABS: Mean Corpuscular Volume 81.9 fL (80.0-98.0); Red Cell Distribution Width 13.8 % (11.0-16.0); SCAN SMEAR FLAG 1
[2021-03-04 17:30] LABS: Basophils Absolute Auto 0.1 X10*3/uL (0.0-0.2); Basophils Percent Auto 0.3 % (0-2); Eosinophils Absolute Auto 0.2 X10*3/uL (0.0-0.4); Eosinophils Percent Auto 1.2 % (0-4); Hematocrit 39.7 % (37.0-47.0); Hemoglobin 12.9 g/dl (12.0-16.0); Imm Gran Abs Auto 0.06 X10*3/uL (0.00-0.03); Imm Gran Pct Auto 0.4 % (0.0-0.4); Lymphocytes Percent Auto 34.9 % (20-40); MANUAL DIFF FLAG SCAN; Mean Corpuscular HGB Conc 32.5 g/dl (31.0-35.0); Mean Corpuscular Hemoglobin 26.6 pg (27.0-33.0); Mean Platelet Volume 12.5 fL (9.4-12.3); Monocytes Absolute Auto 1.2 X10*3/uL (0.1-1.2); Neutrophils Absolute Auto 7.9 x10*3/uL (2.0-8.3); Neutrophils Percent Auto 55.2 % (45-73); Platelet Count 180 X10*3/uL (160-400); Red Blood Count 4.85 X10*6/uL (4.20-5.50); White Blood Count 14.4 X10*3/uL (4.8-10.8)
[2021-03-04 17:31] LABS: PLT ABN DIST 1
[2021-03-04 17:43] LABS: Anion Gap 16 (12-20); Blood Urea Nitrogen 14 mg/dL (9-16); Calcium 10.4 mg/dL (8.4-10.2); Carbon Dioxide 22 mmol/L (22-29); Chloride 101 mmol/L (96-108); Creatinine Clr Calc Pharmacy 34.9; Estimated Glomerular Filt Rate 38; Glucose Random 301 mg/dL (60-115); Sodium 134 mmol/L (135-145)
[2021-03-04 17:48] LABS: SLIDE REVIEW VERIFIED
== END 2021-03-04 17:36 | disposition home or self-care (01) ==
PROVIDERS: Emergency Provider Student in an Organized Health Care Education/Training Program
DX: S06.0X0A Concussion without loss of consciousness, initial encounter (principal); M79.671 Pain in right foot; M79.672 Pain in left foot; I12.9 Hypertensive chronic kidney disease with stage 1 through stage 4 chronic kidney disease, or unspecified chronic kidney disease; E11.22 Type 2 diabetes mellitus with diabetic chronic kidney disease; N18.30 Chronic kidney disease, stage 3 unspecified; W00.0XXA Fall on same level due to ice and snow, initial encounter; Y93.9 Activity, unspecified; Y92.9 Unspecified place or not applicable; Y99.9 Unspecified external cause status
CPT/HCPCS: 36415; 70450; 72125; 73630; 80048; 85025; 99283; 99284

== ENCOUNTER → 2021-04-13 12:44 | Outpatient (BNVA) | payer MEDICARE, MEDICAID, SELFPAY | PROVIDERS: Visit Provider Nurse Practitioner Family | DX: Z12.11 Encounter for screening for malignant neoplasm of colon (principal); K59.01 Slow transit constipation | CPT/HCPCS: 99202 ==

== ENCOUNTER 2021-04-20 12:55 | Emergency (ER) | payer MEDICARE, MEDICAID, SELFPAY ==
[2021-04-20 13:00] VITALS: BP 151/75; PULSE 98; O2SAT 89
[2021-04-20 14:01] VITALS: BMI 33.2
[2021-04-20 14:52] LABS: Basophils Absolute Auto 0.1 X10*3/uL (0.0-0.2); Basophils Percent Auto 0.4 % (0-2); Eosinophils Absolute Auto 0.2 X10*3/uL (0.0-0.4); Hematocrit 39.7 % (37.0-47.0); Imm Gran Abs Auto 0.07 X10*3/uL (0.00-0.03); Imm Gran Pct Auto 0.4 % (0.0-0.4); Lymphocytes Absolute Auto 5.4 X10*3/uL (1.2-4.9); Lymphocytes Percent Auto 32.7 % (20-40); MANUAL DIFF FLAG SCAN; Mean Corpuscular HGB Conc 32.7 g/dl (31.0-35.0); Mean Corpuscular Hemoglobin 26.7 pg (27.0-33.0); Mean Corpuscular Volume 81.5 fL (80.0-98.0); Mean Platelet Volume 12.8 fL (9.4-12.3); Monocytes Absolute Auto 1.1 X10*3/uL (0.1-1.2); Monocytes Percent Auto 6.8 % (2-11); Neutrophils Absolute Auto 9.6 x10*3/uL (2.0-8.3); Neutrophils Percent Auto 58.7 % (45-73); Platelet Count 173 X10*3/uL (160-400); Red Blood Count 4.87 X10*6/uL (4.20-5.50); Red Cell Distribution Width 13.4 % (11.0-16.0); SCAN SMEAR FLAG 1; White Blood Count 16.4 X10*3/uL (4.8-10.8)
[2021-04-20 15:07] LABS: Anion Gap 14 (12-20); Blood Urea Nitrogen 12 mg/dL (9-16); Calcium 9.9 mg/dL (8.4-10.2); Carbon Dioxide 22 mmol/L (22-29); Chloride 100 mmol/L (96-108); Creatinine Clr Calc Pharmacy 53.6; Estimated Glomerular Filt Rate 58; Glucose Random 273 mg/dL (60-115); Potassium 4.5 mmol/L (3.3-5.1); Sodium 131 mmol/L (135-145)
[2021-04-20 15:12] LABS: SLIDE REVIEW VERIFIED
[2021-04-20 15:20] LABS: COVID-19 Test Negative (Negative); IDNOW Serial# 55D5AD1C
== END 2021-04-20 19:40 | disposition left against medical advice (07) ==
PROVIDERS: Emergency Provider Emergency Medicine
DX: F41.9 Anxiety disorder, unspecified (principal); F33.1 Major depressive disorder, recurrent, moderate; R42 Dizziness and giddiness; Z79.899 Other long term (current) drug therapy; Z20.822 Contact with and (suspected) exposure to COVID-19
CPT/HCPCS: 80048; 85025; 87635; 99282; 99283

== ENCOUNTER 2021-05-01 17:29 | Emergency (ER) | payer MEDICARE, MEDICAID, SELFPAY ==
[2021-05-01 17:36] VITALS: BP 127/69; BP 138/61; PULSE 76; PULSE 77; RESP 18; TEMP 36.7; O2SAT 95; O2SAT 96; BMI 31.8
--- NOTE | 2021-05-01 18:17 | ED_ITS ---
HPI - Recheck/Abnormal Lab/Rx General Chief Complaint: Recheck/Abnormal Lab/Rx Stated Complaint: hyperglycemia Time Seen by Provider: 05/01/21 17:58 Source: patient Mode of arrival: ambulatory Limitations: no limitations History of Present Illness HPI narrative: 66-year-old female with a history of type 2 diabetes, CKD 3, schizoaffective disorder, HLD who presents to the ER via EMS with hyperglycemia. She was at her primary care office this afternoon at [facility] where she had her sugar checked and the monitor read ?high? 2 times. The provider gave her 10 units of subcu insulin and called an ambulance for her to come for evaluation. EMS point care was [phone] in route. On arrival to the ER patient reports cramping and discomfort in her bilateral legs, mostly in her knees were she has known osteoarthritis. No new trauma. She is ambulatory. Patient reports she has a VNA every night around 05:00 o'clock who comes over and administers her medications including her insulin. Patient admits to eating mostly rice and has lots of sweets in the house. She denies any fevers, chills, chest pain, shortness of breath, urinary symptoms, nausea, vomiting or abdominal pain. MD complaint: abnormal lab Description of abnormal result: Hyperglycemia Associated symptoms: none Related Data Home Medications Medication Instructions Recorded Confirmed atorvastatin 80 mg tablet 1 tab PO DAILY 03/04/21 03/04/21 lamotrigine 200 mg tablet 1 tab PO DAILY 03/04/21 03/04/21 vilazodone 40 mg tablet (Viibryd) 1 tab PO DAILY 03/04/21 03/04/21 Previous Rx's Medication Instructions Recorded acetaminophen 500 mg tablet 1,000 mg PO Q8H PRN 30 Days #120 10/09/20 (Tylenol Extra Strength) tab aspirin 81 mg tablet,delayed 81 mg PO DAILY 30 Days #30 tab 10/09/20 release (Adult Aspirin Regimen) diclofenac sodium 1 % topical gel 1 ea TOPICAL QID PRN #1 g 10/09/20 insulin degludec 200 unit/mL (3 34 unit (0.17 mL) SUBCUT DAILY 30 10/09/20 mL) subcutaneous pen (Tresiba Days #9 ml FlexTouch U-200 insulin) lancets 28 gauge (FreeStyle #100 ea 10/09/20 Lancets) lorazepam 1 mg tablet (Ativan) 1 mg PO TID PRN 30 Days #90 tab 10/09/20 metformin 500 mg tablet 500 mg PO BID #60 tab 10/09/20 multivitamin 1 tab PO DAILY #30 tab 10/09/20 olanzapine 20 mg tablet (Zyprexa) 20 mg PO BEDTIME 30 Days #30 tab 10/09/20 omeprazole 20 mg capsule,delayed 20 mg PO DAILY 30 Days #30 cap 10/09/20 release pen needle, diabetic 32 gauge x #100 ea 10/09/20 (Unifine Pentips) pioglitazone 30 mg tablet 30 mg PO DAILY #30 tab 10/09/20 repaglinide 2 mg tablet 2 mg PO .COMPLEX #90 tab 03/03/21 lisinopril 10 mg tablet 10 mg PO DAILY #30 tab 03/23/21 bisacodyl 5 mg tablet,delayed 10 mg PO ONCE 1 Days #2 tab 04/13/21 release (Dulcolax (bisacodyl)) polyethylene glycol 3350 17 238 g PO ONCE #238 g 04/13/21 gram/dose oral powder (Miralax) sennosides 8.6 mg tablet (Natural 8.6 mg PO BEDTIME #30 tab 04/13/21 Senna Laxative) Allergies Allergy/AdvReac Type Severity Reaction Status Date / Time duloxetine [Cymbalta] Allergy Unknown Unknown Verified 04/13/21 13:15 hydroxyzine Allergy Unknown unknown Verified 04/13/21 13:15 risperidone Allergy Unknown Unknown Verified 04/13/21 13:15 trazodone Allergy Unknown Unknown Verified 04/13/21 13:15 quetiapine [From SEROQUEL] AdvReac Severe Acute Verified 04/13/21 13:15 Dystonic reaction Review of Systems Review of Systems: Constitutional: No Fever, No Chills ENT/Mouth: No sore throat, No Rhinorrhea Cardiovascular: No Chest Pain, No SOB, No Orthopnea, No Edema Respiratory: No Cough, No Sputum, No Wheezing, No dyspnea Gastrointestinal: No Nausea, No Vomiting, No Diarrhea, No abdominal Pain Genitourinary: No Dysuria, No Urinary Frequency, No Hematuria Musculoskeletal:+ joint pain, No Myalgias Skin: No Skin Lesions, No rash Neuro: No Weakness, No Numbness, No Dizziness, No Headache Psych: No Anxiety/Panic, No Depression Heme/Lymph: No Bruising, No Lymphadenopathy Endocrine: No Polyuria, No Polydipsia PMFSH Past Medical History Medical History CAD (coronary artery disease) Chronic kidney disease, stage 3 unspecified Dementia Depression with anxiety Dermatitis Dermatophytosis Diabetes mellitus with hyperglycemia Dyslipidemia Essential hypertension Joint pain PTSD (post-traumatic stress disorder) Schizoaffective disorder Smoking 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 Mother No problems noted. Social History Social History Household Members: None Household Members Other:: has CHD Services Housing: Apartment Do you presently have visiting nurse or other home services: No Alcohol intake: unknown Patient Tobacco Use Status: Current everyday Tobacco user Tobacco use type: Cigarette Second Hand Smoke Exposure: No Advance Directives: Yes Advance Directives on File: Yes Advance Directives Date on File: 09/30/20 service: No Sexual orientation: Straight/Heterosexual Physical Exam Vital Signs: Vital Signs: Last Vital Signs Temp 97.9 F 05/01/21 19:10 Pulse 79 05/01/21 19:10 Resp 16 05/01/21 19:10 BP 152/67 H 05/01/21 19:10 Pulse Ox 97 05/01/21 19:10 BMI result Body Mass Index 31.8 Appearance: Alert. Oriented X3. No acute distress. Eyes: Pupils equal, round and reactive to light. ENT: Pharynx normal. Neck: Normal inspection. Neck supple. CVS: Normal heart rate and rhythm. Pulses normal. Respiratory: No respiratory distress. Breath sounds normal. Abdomen: Soft and nontender. +BS x4 Skin: Skin warm and dry. Normal skin color. Normal skin turgor. No rashes. Extremities: No lower extremity edema. Bilateral knees are normal in appearance with normal active and passive range of motion. No swelling. Neurovascularly intact distally. Neuro: Oriented X 3. No motor deficit. No sensory deficit. Nonfocal. Course Course Course Narrative: 66-year-old female with history of type 2 diabetes on insulin, CKD, hyperlipidemia, schizoaffective disorder who presents to the ER from her PCP with hyperglycemia. She reports her sugars have been ?not very good? at home. She has a visiting nurse who administers her long-acting insulin in the evening s. She admits to dietary indiscretions and has been eating heavily carbs and sweets. Will rule out DKA. No obvious signs or symptoms of infection. She has chronic arthritic pain in both her knees. No new trauma. Exam is unremarkable. She would like to be discharged home. A pistol pending. Reevaluation(s) Reevaluation #1: Labs showing a leukocytosis with white blood cell count 13.8. This appears to be chronic. On every visit she has an elevated white blood cell count, last was 16.4 a couple of weeks ago her renal function is normal with no acidosis. Her liver enzymes are normal. She has no history of UTI and no urinary symptoms. Her sugars improved to the 200s with fluids and additional insulin. At this t [place] she is stable for discharge home with plan to follow-up with her PCP who can adjust her insulin as needed. She was advised to make dietary modifications including limiting her carbs and sweets. Patient agrees with plan. Stable for DC home. MDM - Recheck/Abnormal Lab/Rx Lab Data Result diagrams: 05/01/21 18:18 05/01/21 18:18 Labs: Lab Results 05/01/21 05/01/21 05/01/21 Range/Units 18:18 18:18 18:18 WBC 13.8 H (4.8-10.8) X10*3/uL RBC 4.49 (4.20-5.50) X10*6/uL Hgb 11.9 L (12.0-16.0) g/dl Hct 37.4 (37.0-47.0) % MCV 83.3 (80.0-98.0) fL MCH 26.5 L (27.0-33.0) pg MCHC 31.8 (31.0-35.0) g/dl RDW 13.7 (11.0-16.0) % Plt Count 153 L (160-400) X10*3/uL MPV Not Reportable Immature Gran % (Auto) 0.4 (0.0-0.4) % Neut % (Auto) 51.5 (45-73) % Lymph % (Auto) 40.5 H (20-40) % Hamblen % (Auto) 5.6 (2-11) % Eos % (Auto) 1.6 (0-4) % Baso % (Auto) 0.4 (0-2) % Lymph # (Auto) 5.6 H (1.2-4.9) X10*3/uL Hamblen # (Auto) 0.8 (0.1-1.2) X10*3/uL Eos # (Auto) 0.2 (0.0-0.4) X10*3/uL Baso # (Auto) 0.1 (0.0-0.2) X10*3/uL Abs Immat Gran (auto) 0.05 H (0.00-0.03) X10*3/uL Absolute Neuts (auto) 7.1 (2.0-8.3) x10*3/uL Absolute Nucleated RBC 0.000 (0.0-0.012) X10*3/uL Nucleated RBC % (auto) 0.0 (0.0-0.2) /100WBC Smear Tech's Comments VERIFIED Sodium 136 (135-145) mmol/L Potassium 3.9 (3.3-5.1) mmol/L Chloride 102 (96-108) mmol/L Carbon Dioxide 26 (22-29) mmol/L Anion Gap 12 (12-20) BUN 12 (9-16) mg/dL Creatinine 1.21 (0.5-1.4) mg/dL Estim Creat Clear Calc 41.7 Estimated GFR 45 Random Glucose 384 H* (60-115) mg/dL Calcium 9.6 (8.4-10.2) mg/dL Magnesium 1.9 (1.6-2.6) mg/dL Total Bilirubin < 0.2 (0.0-1.0) mg/dL Direct Bilirubin < 0.2 (0.0-0.5) mg/dL AST 6 D (5-31) U/L ALT 7 (0-31) U/L Alkaline Phosphatase 101 (39-117) U/L Total Protein 6.9 (6.5-8.0) g/dL Albumin 3.9 (3.5-5.0) g/dL COVID-19 (GILMAR) Negative (Negative) COVID-19 Clin Com See Note Discharge Plan Discharge Clinical Impression: Diabetes mellitus with hyperglycemia Patient Disposition: Home, Self-Care Instructions: Diabetic Hyperglycemia (ED) Additional Instructions: It is important that you limit your carbohydrate and sugar intake. Your high blood sugars most likely diet related. Follow-up with your primary care doctor for further evaluation and adjustment of your insulin. Prescriptions: No Action lisinopril 10 mg tablet 10 mg PO DAILY Qty: 30 6RF olanzapine [Zyprexa] 20 mg tablet 20 mg PO BEDTIME 30 Days Qty: 30 0RF multivitamin Tablet 1 tab PO DAILY Qty: 30 0RF metformin 500 mg tablet 500 mg PO BID Qty: 60 5RF aspirin [Adult Aspirin Regimen] 81 mg tablet,delayed release (DR/EC) 81 mg PO DAILY 30 Days Qty: 30 11RF acetaminophen [Tylenol Extra Strength] 500 mg Tablet 1,000 mg PO Q8H PRN (Reason: Pain) 30 Days Qty: 120 0RF omeprazole 20 mg capsule,delayed release(DR/EC) 20 mg PO DAILY 30 Days Qty: 30 0RF lorazepam [Ativan] 1 mg tablet 1 mg PO TID PRN (Reason: Anxiety) 30 Days Qty: 90 0RF diclofenac sodium 1 % Gel 1 ea TOPICAL QID PRN (Reason: Pain) Qty: 1 0RF (DME) pen needle, diabetic [Unifine Pentips] 32 gauge x 5/32 needle 1 ea miscellaneous TID Qty: 100 11RF (DME) lancets [FreeStyle Lancets] 28 gauge misc 1 gauge topical TID Qty: 100 11RF pioglitazone 30 mg tablet 30 mg PO DAILY Qty: 30 3RF Tresiba FlexTouch U-200 200 unit/mL (3 mL) insulin pen 34 unit subcut DAILY 30 Days Qty: 9 3RF atorvastatin 80 mg tablet 1 tab PO DAILY 0RF lamotrigine 200 mg tablet 1 tab PO DAILY 0RF Viibryd 40 mg tablet 1 tab PO DAILY 0RF repaglinide 2 mg tablet 2 mg PO .COMPLEX Qty: 90 6RF Rx Instructions: 2 mg PO 2-3 times a day; administer within 30 minutes of a meal or snack bisacodyl [Dulcolax (bisacodyl)] 5 mg tablet,delayed release (DR/EC) 10 mg PO ONCE 1 Days Qty: 2 0RF Rx Instructions: take 2 tabs at noon the day before your colonoscopy polyethylene glycol 3350 [Miralax] 17 gram/dose powder 238 g PO ONCE Qty: 238 0RF Rx Instructions: As directed by gastroenterology department at [facility] sennosides [Natural Senna Laxative] 8.6 mg tablet 8.6 mg PO BEDTIME Qty: 30 3RF
[2021-05-01 18:44] LABS: COVID-19 Test Negative (Negative)
[2021-05-01 18:46] LABS: Basophils Absolute Auto 0.1 X10*3/uL (0.0-0.2); Basophils Percent Auto 0.4 % (0-2); Eosinophils Absolute Auto 0.2 X10*3/uL (0.0-0.4); Eosinophils Percent Auto 1.6 % (0-4); Hematocrit 37.4 % (37.0-47.0); Hemoglobin 11.9 g/dl (12.0-16.0); Imm Gran Abs Auto 0.05 X10*3/uL (0.00-0.03); Imm Gran Pct Auto 0.4 % (0.0-0.4); Lymphocytes Absolute Auto 5.6 X10*3/uL (1.2-4.9); Lymphocytes Percent Auto 40.5 % (20-40); MANUAL DIFF FLAG SCAN; Mean Corpuscular HGB Conc 31.8 g/dl (31.0-35.0); Mean Corpuscular Hemoglobin 26.5 pg (27.0-33.0); Mean Corpuscular Volume 83.3 fL (80.0-98.0); Monocytes Absolute Auto 0.8 X10*3/uL (0.1-1.2); Monocytes Percent Auto 5.6 % (2-11); Neutrophils Absolute Auto 7.1 x10*3/uL (2.0-8.3); Neutrophils Percent Auto 51.5 % (45-73); Red Blood Count 4.49 X10*6/uL (4.20-5.50); Red Cell Distribution Width 13.7 % (11.0-16.0); SCAN SMEAR FLAG 1; White Blood Count 13.8 X10*3/uL (4.8-10.8)
[2021-05-01 18:47] LABS: Alanine Aminotransferase 7 U/L (0-31); Albumin Level 3.9 g/dL (3.5-5.0); Alkaline Phosphatase 101 U/L (39-117); Anion Gap 12 (12-20); Aspartate Amino Transferase 6 U/L (5-31); Bilirubin Direct < 0.2 mg/dL (0.0-0.5); Bilirubin Total < 0.2 mg/dL (0.0-1.0); Blood Urea Nitrogen 12 mg/dL (9-16); Calcium 9.6 mg/dL (8.4-10.2); Carbon Dioxide 26 mmol/L (22-29); Chloride 102 mmol/L (96-108); Creatinine Clr Calc Pharmacy 41.7; Estimated Glomerular Filt Rate 45; Glucose Random 384 mg/dL (60-115); Magnesium 1.9 mg/dL (1.6-2.6); PLT ABN DIST 1; Platelet Count 153 X10*3/uL (160-400); Potassium 3.9 mmol/L (3.3-5.1); Sodium 136 mmol/L (135-145); Total Protein 6.9 g/dL (6.5-8.0)
[2021-05-01 18:54] LABS: SLIDE REVIEW VERIFIED
[2021-05-01] MEDS: Insulin Lispro 100 UNIT/ML 3 ML VIAL 10 UNIT SUBCUT (19:03)
[2021-05-01] MEDS: 0.9 % Sodium Chloride 1,000 ML 999 ML IVCONT (19:04)
[2021-05-01 19:10] VITALS: BP 152/67; PULSE 79; RESP 16; TEMP 36.6; O2SAT 97
[2021-05-01 20:06] LABS: Glucose, Whole Blood 214 mg/dL (60-115)
[2021-05-01 21:17] LABS: Acetone, serum QL Negative (Negative)
== END 2021-05-01 21:03 | disposition home or self-care (01) ==
PROVIDERS: Physician Assistant; Emergency Provider Emergency Medicine Emergency Medical Services
DX: E11.65 Type 2 diabetes mellitus with hyperglycemia (principal); E11.22 Type 2 diabetes mellitus with diabetic chronic kidney disease; R79.89 Other specified abnormal findings of blood chemistry; I12.9 Hypertensive chronic kidney disease with stage 1 through stage 4 chronic kidney disease, or unspecified chronic kidney disease; N18.9 Chronic kidney disease, unspecified; F17.210 Nicotine dependence, cigarettes, uncomplicated; Z20.822 Contact with and (suspected) exposure to COVID-19; Z71.6 Tobacco abuse counseling; Z79.4 Long term (current) use of insulin; Z79.899 Other long term (current) drug therapy
CPT/HCPCS: 80048; 80076; 82009; 82947; 83735; 85025; 87635; 96360; 99283; 99284

== ENCOUNTER 2021-05-21 08:37 | Day surgery (SDC) | payer MEDICARE, MEDICAID, SELFPAY ==
--- NOTE | 2021-05-20 09:56 | P.CONAN_ITS ---
Documented by User: Keily Washington NP 05/20/21 09:59 HPI - Anesthesia Eval Consult details Narrative: 66yo F for Colonoscopy PMFSH Active Problems Active Problems: All Active Problems (Updated 05/01/21 @ 19:08 by BARON Harrison) Schizoaffective disorder (Acute) Diabetes mellitus with hyperglycemia (Acute) Type 2 diabetes mellitus with chronic kidney disease (Acute) Chronic kidney disease, stage 3 unspecified (Acute) Dyslipidemia (Acute) Past Medical History Medical History CAD (coronary artery disease) Chronic kidney disease, stage 3 unspecified Dementia Depression with anxiety Dermatitis Dermatophytosis Diabetes mellitus with hyperglycemia Dyslipidemia Essential hypertension Joint pain PTSD (post-traumatic stress disorder) Schizoaffective disorder Smoking Type 2 diabetes mellitus with chronic kidney disease Type 2 diabetes mellitus with diabetic polyneuropathy Family History Family History Father No problems noted. Mother No problems noted. Surgical History Surgical History Hx of cataract surgery Hx of section Hx of tubal ligation Social History Social History Household Members: None Household Members Other:: has CHD Services Housing: Apartment Do you presently have visiting nurse or other home services: No Alcohol intake: unknown Patient Tobacco Use Status: Current everyday Tobacco user Tobacco use type: Cigarette Cigarette Packs Per Day: 1 Cigarettes Per Day: 20.0 Second Hand Smoke Exposure: No Use of substances other than those prescribed or required for medical reasons: No Are you DNR?: No Advance Directives: Yes Advance Directives on File: Yes Advance Directives Date on File: 09/30/20 Recently lost weight without trying: No service: No Sexual orientation: Straight/Heterosexual Meds Allergies Allergy/AdvReac Type Severity Reaction Status Date / Time duloxetine [Cymbalta] Allergy Unknown Unknown Verified 04/13/21 13:15 hydroxyzine Allergy Unknown unknown Verified 04/13/21 13:15 risperidone Allergy Unknown Unknown Verified 04/13/21 13:15 trazodone Allergy Unknown Unknown Verified 04/13/21 13:15 quetiapine [From SEROQUEL] AdvReac Severe Acute Verified 04/13/21 13:15 Dystonic reaction Home Medications Medication Instructions Recorded Confirmed Last Taken Type atorvastatin 80 mg tablet 1 tab PO DAILY 03/04/21 05/15/21 Unknown History lamotrigine 200 mg tablet 1 tab PO DAILY 03/04/21 05/15/21 Unknown History vilazodone 40 mg tablet (Viibryd) 1 tab PO DAILY 03/04/21 05/15/21 Unknown History Exam Exam Date and Time: May 20, 2021 0956 Pertinent Lab Results Pertinent Lab Results: Laboratory Tests 05/01/21 05/01/21 18:18 18:18 WBC 13.8 H Hgb 11.9 L Hct 37.4 Plt Count 153 L Sodium 136 Potassium 3.9 Chloride 102 Carbon Dioxide 26 BUN 12 Creatinine 1.21 Narrative Narrative: EKG 04/2021 Vent. Rate : 087 BPM ? ? Atrial Rate : 087 BPM ?? P-R Int : 162 ms? QRS Dur : 124 ms ? ? QT Int : 390 ms ? ? ? P-R-T Axes : 070 -51 063 degrees ?? QTc Int : 469 ms ? Normal sinus rhythm Right bundle branch block Left anterior fascicular block Bifascicular block Abnormal ECG When compared with ECG of 07-JAN-2020 18:56, No significant change was found Assessment and Plan Assessment Anesthesia Assessment: Chart Reviewed Documented by User: Syeda Avina MD 05/21/21 10:30 [facility] Past Medical History Medical History CAD (coronary artery disease) Chronic kidney disease, stage 3 unspecified Dementia Depression with anxiety Dermatitis Dermatophytosis Diabetes mellitus with hyperglycemia Dyslipidemia Essential hypertension Joint pain PTSD (post-traumatic stress disorder) Schizoaffective disorder Smoking Type 2 diabetes mellitus with chronic kidney disease Type 2 diabetes mellitus with diabetic polyneuropathy Functional capacity: independent ambulation Patient : No Family History Family History Father No problems noted. Mother No problems noted. Family history of problems with anesthesia: No Surgical History Surgical History Hx of cataract surgery Hx of section Hx of tubal ligation History of Problems with Anesthesia: No Social History Social History Household Members: None Household Members Other:: has CHD Services Housing: Apartment Do you presently have visiting nurse or other home services: No Alcohol intake: unknown Patient Tobacco Use Status: Current everyday Tobacco user Tobacco use type: Cigarette Cigarette Packs Per Day: 1 Cigarettes Per Day: 20.0 Second Hand Smoke Exposure: No Use of substances other than those prescribed or required for medical reasons: No Are you DNR?: No Advance Directives: Yes Advance Directives on File: Yes Advance Directives Date on File: 09/30/20 Recently lost weight without trying: No service: No Sexual orientation: Straight/Heterosexual Meds Allergies Allergy/AdvReac Type Severity Reaction Status Date / Time duloxetine [Cymbalta] Allergy Unknown Unknown Verified 04/13/21 13:15 hydroxyzine Allergy Unknown unknown Verified 04/13/21 13:15 risperidone Allergy Unknown Unknown Verified 04/13/21 13:15 trazodone Allergy Unknown Unknown Verified 04/13/21 13:15 quetiapine [From SEROQUEL] AdvReac Severe Acute Verified 04/13/21 13:15 Dystonic reaction Home Medications Medication Instructions Recorded Confirmed Last Taken Type atorvastatin 80 mg tablet 1 tab PO DAILY 03/04/21 05/15/21 Unknown History lamotrigine 200 mg tablet 1 tab PO DAILY 03/04/21 05/15/21 Unknown History vilazodone 40 mg tablet (Viibryd) 1 tab PO DAILY 03/04/21 05/15/21 Unknown History Exam Airway Mallampati Class: III TM Dist: >3cm Neck ROM: Full Heart: oRRR Lungs: CTA Assessment and Plan Final Anesthetic Review Family History of Problems with Anesthesia: No History of Problems with Anesthesia: No ASA Class: III Final Preanesthetic Review: No Changes in Pt Med Stat, Meds/Allgs Chart Reviewed, Consent Obtained/Reviewed and Anes Risks/Benef Reviewed Patient Risk: Low Procedure Risk: Low Anesthetic Plan Anesthetic Plan: MAC: Disposition: Standard PACU
[2021-05-21 09:08] VITALS: BMI 31.2
[2021-05-21 09:09] VITALS: BP 131/57; PULSE 88; RESP 18; TEMP 36; O2SAT 100
--- NOTE | 2021-05-21 09:11 | MHC.SHP ---
Pre-Procedural Eval Section A Date of Service: 05/21/21 Section B Chief Complaint: screening Relevant Family History (Specify if Yes): No Relevant Social History: Tobacco Use Present Medications: see Short Stay Collaborative assessment Medical History: Significant History (CAD (coronary artery disease) Chronic kidney disease, stage 3 unspecified Dementia Depression with anxiety Dermatitis Dermatophytosis Diabetes mellitus with hyperglycemia Dyslipidemia Essential hypertension Joint pain PTSD (post-traumatic stress disorder) Schizoaffective disorder Smoking Type 2 diab) History of Previous Operations: Relevant previous surgery/procedure and date(s) (Hx of cataract surgery Hx of section Hx of tubal ligation) Allergies: Allergies Allergy/AdvReac Type Severity Reaction Status Date / Time duloxetine [Cymbalta] Allergy Unknown Unknown Verified 04/13/21 13:15 hydroxyzine Allergy Unknown unknown Verified 04/13/21 13:15 risperidone Allergy Unknown Unknown Verified 04/13/21 13:15 trazodone Allergy Unknown Unknown Verified 04/13/21 13:15 quetiapine [From SEROQUEL] AdvReac Severe Acute Verified 04/13/21 13:15 Dystonic reaction Review of Systems Sugical H&P ROS: Negative: Constitution, Cardiovascular, Respiratory, Neurological, Psychiatric, Hem-Onc, Allergic/Immunologic, Gastrointestinal, Genitourinary, Musculoskeletal, Integumentary, Endocrine and Eyes/Ears/Nose/Throat Exam Surgical H&P Exam: Normal: HEENT, Normal: Heart, Normal: Lungs, Normal: Extremities, Normal: Abdomen, Normal: Skin and Normal: Neurological Plan Diagnosis/Plan: Unchanged I have reviewed the history and physical and performed a pertinent physical examination on my patient. No changes have occurred unless specified.
[2021-05-21] MEDS: Lactated Ringers 1,000 ML 100 ML IVCONT (09:42)
[2021-05-21 09:53] LABS: Glucose, Whole Blood 129 mg/dL (60-115)
--- NOTE | 2021-05-21 09:59 | PM.OP ---
Brief Operative Note Date of Service: 05/21/21 Pre-op diagnosis: colon screening Post-op diagnosis: same Procedure: see op note Surgeon: Moe Phipps MD Anesthesia: MAC Was an Brine Supervisor used for this Procedure?: No Estimated blood loss (mL): 0 Condition: stable Disposition: PACU
--- NOTE | 2021-05-21 10:00 | W.PM.OPN ---
Operative Note Operative Note Date of Service: 05/21/21 Narrative: Operative Information Procedure Description: Colonoscopy COLONOSCOPY Instrument: Olympus variable stiffness pediatric scope 190L Colonoscopy Monitoring: Vital signs and clinical assessment, continuous EKG monitoring, Pulse oximetry, Carbon Dioxide monitoring and blood pressure monitoring were done throughout the procedure. Colon withdrawal time was 8 minutes. Procedure: The patient was placed in the left lateral decubitis position and pre-procedure medications were administered. After a digital rectal examination of the ano-rectum, the video colonoscope was inserted into the rectum and advanced through the colon to the cecum/TI. The colonoscope was slowly withdrawn in a retrograde panoramic fashion and the colon mucosa was carefully examined including a retroflexed view of the rectum. Findings and interventions are described below. Procedure Difficulty: easy Findings: Terminal Ileum-normal Cecum:normal Ascending Colon: x 2 large lipomas noted, with pillow sign and yellowish sheen, measured about 1 cm each Transverse Colon -normal Descending Colon:normal Sigmoid Colon: normal Rectum: Retroflexion with small internal hemorrhoids, grade I Anorectum - normal Colon preparation: [place] Bowel Preparation Scale Right colon; 2 Transverse colon: 2 Left colon; 2 (0 = Unprepared colon segment with mucosa not seen due to solid stool that cannot be cleared. 1 = Portion of mucosa of the colon segment seen, but other areas of the colon segment not well seen due to staining, residual stool and/or opaque liquid. 2 = Minor amount of residual staining, small fragments of stool and/or opaque liquid, but mucosa of colon segment seen well. 3 = Entire mucosa of colon segment seen well with no residual staining, small fragments of stool or opaque liquid) Impression and Post Procedure Diagnosis: lipomas internal hemorrhoids Plan: High fiber diet leaflet Avoid straining at stool, epsom salts and sitz bath, anusol supps or cream Repeat Colonoscopy in 10 years or earlier if clinically indicated Above findings were reviewed with the patient and relevant handouts were provided if indicated.
[2021-05-21 10:44] VITALS: BP 90/45; PULSE 78; RESP 16; TEMP 36.2; O2SAT 97
[2021-05-21 10:59] VITALS: BP 124/61; PULSE 80; RESP 16; TEMP 36.2; O2SAT 95
--- NOTE | 2021-05-21 11:08 | HO.POSTANES ---
Post Anesthesia Evaluation Post Anesthesia Evaluation Vital Signs: Vital Signs Temp Pulse Resp BP Pulse Ox 05/21/21 10:59 97.1 F 80 16 124/61 95 05/21/21 10:44 97.1 F 78 16 90/45 L 97 05/21/21 09:09 96.8 F 88 18 131/57 L 100 Anesthesia: Monitored Mental Status: Awake Pain Control: Satisfactory Nausea/Vomiting: None Hydration: Adequate Anesthesia-Related Issues: No Anes. Related Issues
== END 2021-05-21 11:44 | disposition home or self-care (01) ==
PROVIDERS: Visit Provider Internal Medicine Gastroenterology
PROC: 0DJD8ZZ Inspection of Lower Intestinal Tract, Via Natural or Artificial Opening Endoscopic (ICD-10-PCS; CPT 45378; principal; 2021-05-21 10:00)
DX: Z12.11 Encounter for screening for malignant neoplasm of colon (principal); D17.5 Benign lipomatous neoplasm of intra-abdominal organs; K64.0 First degree hemorrhoids; E11.22 Type 2 diabetes mellitus with diabetic chronic kidney disease; I12.9 Hypertensive chronic kidney disease with stage 1 through stage 4 chronic kidney disease, or unspecified chronic kidney disease; E11.42 Type 2 diabetes mellitus with diabetic polyneuropathy; E11.65 Type 2 diabetes mellitus with hyperglycemia; N18.30 Chronic kidney disease, stage 3 unspecified; E78.5 Hyperlipidemia, unspecified; F25.9 Schizoaffective disorder, unspecified; Z79.82 Long term (current) use of aspirin; Z79.84 Long term (current) use of oral hypoglycemic drugs; Z79.899 Other long term (current) drug therapy; Z88.8 Allergy status to other drugs, medicaments and biological substances; F17.210 Nicotine dependence, cigarettes, uncomplicated
CPT/HCPCS: G0121; 82947

== ENCOUNTER → 2021-06-02 13:58 | Outpatient (BNVA) | payer MEDICARE, MEDICAID, SELFPAY | PROVIDERS: PCP Nurse Practitioner Family; Visit Provider Nurse Practitioner Gerontology | DX: E11.65 Type 2 diabetes mellitus with hyperglycemia (principal); E11.22 Type 2 diabetes mellitus with diabetic chronic kidney disease; N18.30 Chronic kidney disease, stage 3 unspecified; E11.42 Type 2 diabetes mellitus with diabetic polyneuropathy; E78.5 Hyperlipidemia, unspecified; Z79.4 Long term (current) use of insulin; Z79.899 Other long term (current) drug therapy | CPT/HCPCS: 82947; 83036; 99212 ==

== ENCOUNTER → 2021-06-03 10:25 | Outpatient (BNVA) | payer MEDICARE, MEDICAID, SELFPAY | PROVIDERS: PCP Nurse Practitioner Family; Visit Provider Nurse Practitioner Family | DX: K59.04 Chronic idiopathic constipation (principal); Z98.890 Other specified postprocedural states | CPT/HCPCS: 99212 ==

== ENCOUNTER 2021-06-05 15:07 | Outpatient (REF) | payer MEDICARE, MEDICAID, SELFPAY ==
--- NOTE | ~2021-06-05 | MM_ITS ---
EXAMINATION: MM SCREENING DIGITAL BREAST TOMOSYNTHESIS, BILATERAL CLINICAL INFORMATION: Screening. Asymptomatic. The lifetime risk of breast cancer based on the Tyrer-Cuzick Model is 4%. COMPARISON: Mammography: 05/20/2020, 10/16/2018, 10/20/2017 TECHNIQUE: Digital breast tomosynthesis is performed in both the craniocaudal and mediolateral oblique views along with computer-aided detection (CAD). Synthesized 2D images are generated from the tomosynthesis. FINDINGS: The breasts are heterogeneously dense, which may obscure small masses (ACR BI-RADS breast composition Category c). Breast tissue composition borders on extremely dense. There is no interval developing density or architectural abnormality. Again, there are scattered bilateral punctate round and some coarse and vascular calcifications again seen. There are no significant masses, abnormal calcifications, or other abnormalities. The axilla and skin contours are unremarkable. MM/MM tomosynthesis screening BI IMPRESSION: No mammographic evidence of malignancy. ASSESSMENT: BI-RADS 2: Benign RECOMMENDATION: Routine annual mammography screening. This patient's information was entered into a reminder system with a target due date for their next mammogram.
== END 2021-06-05 15:08 | disposition home or self-care (01) ==
LOC: HO.MAMMO 15:07
PROVIDERS: PCP Nurse Practitioner Family; Visit Provider Nurse Practitioner Family
DX: Z12.31 Encounter for screening mammogram for malignant neoplasm of breast (principal)
CPT/HCPCS: 77063; 77067

== ENCOUNTER 2021-06-15 07:45 | Outpatient (REF) | payer MEDICARE, MEDICAID, SELFPAY ==
[2021-06-15 08:27] LABS: Blood Urea Nitrogen 15 mg/dL (9-16); Estimated Glomerular Filt Rate 48
== END 2021-06-15 07:46 | disposition home or self-care (01) ==
LOC: HO.LAB 07:45
PROVIDERS: PCP Nurse Practitioner Family; Visit Provider Nurse Practitioner Family
DX: R10.13 Epigastric pain (principal)
CPT/HCPCS: 36415; 82565; 84520

== ENCOUNTER 2021-08-25 16:36 | Emergency (ER) | payer MEDICARE, MEDICAID, SELFPAY ==
[2021-08-25 17:03] VITALS: BP 180/80
[2021-08-25 17:05] LABS: Glucose, Whole Blood 119 mg/dL (60-115)
[2021-08-25 17:06] VITALS: BP 113/57; PULSE 79; RESP 18; TEMP 36.7; O2SAT 97; BMI 30.4
[2021-08-25 17:13] VITALS: BP 113/57; PULSE 79; RESP 18; TEMP 36.7; O2SAT 97
--- NOTE | 2021-08-25 17:14 | ED_ITS ---
HPI - General Adult General Chief complaint: General Medical Stated complaint: Hypertension Time Seen by Provider: 08/25/21 17:05 Source: patient Mode of arrival: ambulatory Limitations: no limitations History of Present Illness HPI narrative: Patient is 66 years old with history of diabetes, dementia, schizoaffective disorder, hypertension, hyperlipidemia, anxiety came here for blood sugar of 300. Patient is on Tresiba 34 units metformin 500 twice daily proglitazone 30 mg and Repaglinide 2 mg t.i.d. before the meals patient feel very depressed as her son left for [place] for vacation has [employer]IFORM ROOM ATTENDANT who comes and helps her out. Patient also complaining of low back pain which is chronic no recent fall or injury Related Data Home Medications Medication Instructions Recorded Confirmed atorvastatin 80 mg tablet 1 tab PO DAILY 03/04/21 06/02/21 lamotrigine 200 mg tablet 1 tab PO DAILY 03/04/21 06/02/21 vilazodone 40 mg tablet (Viibryd) 1 tab PO DAILY 03/04/21 06/02/21 empagliflozin 10 mg tablet 10 mg PO DAILY 06/03/21 (Jardiance) ketotifen fumarate 0.025 % (0.035 1 drp ophthalmic (eye) BID 06/03/21 %) eye drops Previous Rx's Medication Instructions Recorded acetaminophen 500 mg tablet 1,000 mg PO Q8H PRN Pain 30 days 10/09/20 (Tylenol Extra Strength) #120 tabs aspirin 81 mg tablet,delayed 81 mg PO DAILY 30 days #30 tabs 10/09/20 release (Adult Aspirin Regimen) diclofenac sodium 1 % topical gel 1 ea topical QID PRN Pain #1 g 10/09/20 lancets 28 gauge (FreeStyle #100 ea 10/09/20 Lancets) lorazepam 1 mg tablet (Ativan) 1 mg PO TID PRN Anxiety 30 days 10/09/20 #90 tabs multivitamin 1 tab PO DAILY #30 tabs 10/09/20 olanzapine 20 mg tablet (Zyprexa) 20 mg PO BEDTIME 30 days #30 tabs 10/09/20 omeprazole 20 mg capsule,delayed 20 mg PO DAILY 30 days #30 caps 10/09/20 release pioglitazone 30 mg tablet 30 mg PO DAILY #30 tabs 10/09/20 lisinopril 10 mg tablet 10 mg PO DAILY #30 tabs 03/23/21 insulin degludec 200 unit/mL (3 34 unit (0.17 mL) subcut DAILY 30 06/02/21 mL) subcutaneous pen (Tresiba days #9 mL FlexTouch U-200 insulin) metformin 500 mg tablet 500 mg PO BID #60 tabs 06/02/21 docusate sodium 100 mg capsule 100 mg PO BEDTIME #90 caps 06/03/21 sennosides 8.6 mg tablet (Natural 17.2 mg PO BEDTIME constipation 06/03/21 Senna Laxative) #180 tabs blood-glucose meter (FreeStyle #1 ea 06/24/21 Lite Meter) pen needle, diabetic 32 gauge x #100 ea 08/04/21 (Unifine Pentips) insulin aspart U-100 100 unit/mL 6 - 8 unit (0.06 - 0.08 mL) subcut 08/18/21 (3 mL) subcutaneous pen (Novolog BID #15 mL Flexpen U-100 Insulin aspart) tramadol 50 mg tablet 50 mg PO Q6H PRN pain #20 tabs 08/25/21 Allergies Allergy/AdvReac Type Severity Reaction Status Date / Time duloxetine [Cymbalta] Allergy Unknown Unknown Verified 08/25/21 17:06 hydroxyzine Allergy Unknown unknown Verified 08/25/21 17:06 risperidone Allergy Unknown Unknown Verified 08/25/21 17:06 trazodone Allergy Unknown Unknown Verified 08/25/21 17:06 quetiapine [From SEROQUEL] AdvReac Severe Acute Verified 08/25/21 17:06 Dystonic reaction [facility] Past Medical History Medical History (Updated 08/26/21 @ 00:01 by Meredith Taylor) CAD (coronary artery disease) Chronic kidney disease, stage 3 unspecified Dementia Depression with anxiety Dermatitis Dermatophytosis Diabetes mellitus with hyperglycemia Dyslipidemia Essential hypertension Joint pain PTSD (post-traumatic stress disorder) Schizoaffective disorder Smoking 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 Mother No problems noted. Social History Social History Household Members: None Household Members Other:: has [employer] Services Housing: Apartment Do you presently have visiting nurse or other home services: No Alcohol intake: never Patient Tobacco Use Status: Current everyday Tobacco user Tobacco use type: Cigarette Cigarette Packs Per Day: 1 Cigarettes Per Day: 20.0 Smoked in Last 30 Days: Yes Second Hand Smoke Exposure: No Use of substances other than those prescribed or required for medical reasons: No Advance Directives: Yes Advance Directives on File: Yes Advance Directives Date on File: 09/30/20 service: No Sexual orientation: Straight/Heterosexual Physical Exam ED Vital Signs: Vital Signs - 24 hr 08/25/21 17:06 08/25/21 17:13 08/25/21 18:07 Temperature 98.0 F 98.0 F 99.0 F Pulse Rate 79 79 74 Respiratory Rate 18 18 16 Blood Pressure 113/57 L 113/57 L 147/64 H Pulse Oximetry 97 97 98 Oxygen Delivery Method Room Air Room Air Room Air 08/25/21 19:46 08/25/21 21:52 Temperature 97.8 F 97.7 F Pulse Rate 72 74 Respiratory Rate 16 16 Blood Pressure 151/68 H 144/62 H Pulse Oximetry 97 98 Oxygen Delivery Method Room Air Room Air BMI result Body Mass Index 30.4 Appearance: Alert. Oriented X3. No acute distress. Eyes: PERRLA, No Nystagmus ENT: Pharynx normal. Oral Mucosa moist Neck: Normal inspection. Neck supple. CVS: Normal heart rate and rhythm. Pulses normal. Respiratory: No respiratory distress. Equal air entry bilateral, no wheezing/rales/rhonchi Abdomen: Soft and nontender. Bowel sounds are present, no mass palpable, no CVA tenderness Skin: Skin warm and dry. Normal skin color. Normal skin turgor. Extremities: No lower extremity edema. No calf tenderness Neuro: Oriented X 3. No motor deficit. No sensory deficit.No cerebellar signs , cranial nerves II-XII intact Medical Decision Making MDM Narrative Medical decision making narrative: Patient stable lab slightly leukocytosis which is chronically high. No signs of infection. Discharge patient home to follow-up with her PCP has a UNIFORM ROOM ATTENDANT with [employer] at home and give her insulin will give her tramadol for back pain Lab Data Lab results reviewed: Yes I reviewed the patient's lab results. Result diagrams: 08/25/21 17:58 08/25/21 17:58 Labs: Lab Results 08/25/21 08/25/21 08/25/21 Range/Units 16:58 17:58 17:58 WBC 16.6 H (4.8-10.8) X10*3/uL RBC 4.81 (4.20-5.50) X10*6/uL Hgb 12.6 (12.0-16.0) g/dl Hct 38.8 (37.0-47.0) % MCV 80.7 (80.0-98.0) fL MCH 26.2 L (27.0-33.0) pg MCHC 32.5 (31.0-35.0) g/dl RDW 13.7 (11.0-16.0) % Plt Count 185 (160-400) X10*3/uL MPV 12.1 (9.4-12.3) fL Immature Gran % (Auto) 0.7 H (0.0-0.4) % Neut % (Auto) 64.9 (45-73) % Lymph % (Auto) 24.8 (20-40) % [place] % (Auto) 8.1 (2-11) % Eos % (Auto) 1.1 (0-4) % Baso % (Auto) 0.4 (0-2) % Lymph # (Auto) 4.1 (1.2-4.9) X10*3/uL [place] # (Auto) 1.4 H (0.1-1.2) X10*3/uL Eos # (Auto) 0.2 (0.0-0.4) X10*3/uL Baso # (Auto) 0.1 (0.0-0.2) X10*3/uL Abs Immat Gran (auto) 0.12 H (0.00-0.03) X10*3/uL Absolute Neuts (auto) 10.8 H (2.0-8.3) x10*3/uL Absolute Nucleated RBC 0.000 (0.0-0.012) X10*3/uL Nucleated RBC % (auto) 0.0 (0.0-0.2) /100WBC Sodium 136 (135-145) mmol/L Potassium 4.0 (3.3-5.1) mmol/L Chloride 106 (96-108) mmol/L Carbon Dioxide 21 L (22-29) mmol/L Anion Gap 13 (12-20) BUN 9 (9-16) mg/dL Creatinine 0.99 (0.5-1.4) mg/dL Estim Creat Clear Calc 49.6 Estimated GFR 56 POC Glucose 119 H (60-115) mg/dL Random Glucose 75 D (60-115) mg/dL Calcium 9.7 (8.4-10.2) mg/dL Total Bilirubin < 0.2 (0.0-1.0) mg/dL AST 14 D (5-31) U/L ALT 12 (0-31) U/L Alkaline Phosphatase 95 (39-117) U/L Total Protein 7.7 (6.5-8.0) g/dL Albumin 4.2 (3.5-5.0) g/dL Urine Color Urine Appearance Urine pH (5.0-8.0) Ur Specific [place] (1.005-1.025) Urine Protein (NEG-TRACE) MG/DL Urine Glucose (UA) (NEG) MG/DL Urine Ketones (NEG) MG/DL Urine Blood (NEG) Urine Nitrite (NEG) Ur Leukocyte Esterase (NEG) Urine RBC (0) /HPF Urine WBC (0-4) /HPF Ur Squamous Epith Cells /LPF Amorphous Sediment /LPF Urine Bacteria /LPF 08/25/21 08/25/21 08/25/21 Range/Units 18:25 18:55 20:28 WBC (4.8-10.8) X10*3/uL RBC (4.20-5.50) X10*6/uL Hgb (12.0-16.0) g/dl Hct (37.0-47.0) % MCV (80.0-98.0) fL MCH (27.0-33.0) pg MCHC (31.0-35.0) g/dl RDW (11.0-16.0) % Plt Count (160-400) X10*3/uL MPV (9.4-12.3) fL Immature Gran % (Auto) (0.0-0.4) % Neut % (Auto) (45-73) % Lymph % (Auto) (20-40) % [place] % (Auto) (2-11) % Eos % (Auto) (0-4) % Baso % (Auto) (0-2) % Lymph # (Auto) (1.2-4.9) X10*3/uL [place] # (Auto) (0.1-1.2) X10*3/uL Eos # (Auto) (0.0-0.4) X10*3/uL Baso # (Auto) (0.0-0.2) X10*3/uL Abs Immat Gran (auto) (0.00-0.03) X10*3/uL Absolute Neuts (auto) (2.0-8.3) x10*3/uL Absolute Nucleated RBC (0.0-0.012) X10*3/uL Nucleated RBC % (auto) (0.0-0.2) /100WBC Sodium (135-145) mmol/L Potassium (3.3-5.1) mmol/L Chloride (96-108) mmol/L Carbon Dioxide (22-29) mmol/L Anion Gap (12-20) BUN (9-16) mg/dL Creatinine (0.5-1.4) mg/dL Estim Creat Clear Calc Estimated GFR POC Glucose 64 359 H* (60-115) mg/dL Random Glucose (60-115) mg/dL Calcium (8.4-10.2) mg/dL Total Bilirubin (0.0-1.0) mg/dL AST (5-31) U/L ALT (0-31) U/L Alkaline Phosphatase (39-117) U/L Total Protein (6.5-8.0) g/dL Albumin (3.5-5.0) g/dL Urine Color STRAW Urine Appearance CLEAR Urine pH 6.0 (5.0-8.0) Ur Specific [place] <= 1.005 (1.005-1.025) Urine Protein NEG (NEG-TRACE) MG/DL Urine Glucose (UA) >=1000 H (NEG) MG/DL Urine Ketones NEG (NEG) MG/DL Urine Blood NEG (NEG) Urine Nitrite NEG (NEG) Ur Leukocyte Esterase NEG (NEG) Urine RBC 0-2 (0) /HPF Urine WBC 1-4 (0-4) /HPF Ur Squamous Epith Cells 1+ /LPF Amorphous Sediment TRACE /LPF Urine Bacteria TRACE /LPF Discharge Plan Discharge Clinical Impression: Diabetes mellitus, Back pain Patient Disposition: Home, Self-Care Instructions: Back Pain (ED), Type 2 Diabetes in the Older Adult (ED) Additional Instructions: Take your insulin on time as prescribed and have your food on time Follow with PCP Prescriptions: New tramadol 50 mg tablet 50 mg PO Q6H PRN (Reason: pain) Qty: 20 0RF No Action lisinopril 10 mg tablet 10 mg PO DAILY Qty: 30 6RF (DME) blood-glucose meter [FreeStyle Lite Meter] Kit See Rx Instructions .ROUTE .MEDSUPPLY Qty: 1 0RF Rx Instructions: As directed 2x/day (DME) pen needle, diabetic [Unifine Pentips] 32 gauge x 5/32 needle 1 ea miscellaneous TID Qty: 100 11RF Rx Instructions: 4x daily insulin aspart U-100 [Novolog Flexpen U-100 Insulin] 100 unit/mL (3 mL) insulin pen 6 - 8 unit subcut BID Qty: 15 2RF Rx Instructions: Administer 6 units for blood glucose over 150 and 8 units for blood glucose over 250. olanzapine [Zyprexa] 20 mg tablet 20 mg PO BEDTIME 30 Days Qty: 30 0RF multivitamin Tablet 1 tab PO DAILY Qty: 30 0RF aspirin [Adult Aspirin Regimen] 81 mg tablet,delayed release (DR/EC) 81 mg PO DAILY 30 Days Qty: 30 11RF acetaminophen [Tylenol Extra Strength] 500 mg Tablet 1,000 mg PO Q8H PRN (Reason: Pain) 30 Days Qty: 120 0RF omeprazole 20 mg capsule,delayed release(DR/EC) 20 mg PO DAILY 30 Days Qty: 30 0RF lorazepam [Ativan] 1 mg tablet 1 mg PO TID PRN (Reason: Anxiety) 30 Days Qty: 90 0RF diclofenac sodium 1 % Gel 1 ea TOPICAL QID PRN (Reason: Pain) Qty: 1 0RF (DME) lancets [FreeStyle Lancets] 28 gauge misc 1 gauge topical TID Qty: 100 11RF pioglitazone 30 mg tablet 30 mg PO DAILY Qty: 30 3RF atorvastatin 80 mg tablet 1 tab PO DAILY lamotrigine 200 mg tablet 1 tab PO DAILY Viibryd 40 mg tablet 1 tab PO DAILY Tresiba FlexTouch U-200 200 unit/mL (3 mL) insulin pen 34 unit subcut DAILY 30 Days Qty: 9 6RF metformin 500 mg tablet 500 mg PO BID Qty: 60 5RF Jardiance 10 mg tablet 10 mg PO DAILY ketotifen fumarate 0.025 % (0.035 %) drops 1 drp ophthalmic (eye) BID Rx Instructions: administer at least 8 hours apart sennosides [Natural Senna Laxative] 8.6 mg tablet 17.2 mg PO BEDTIME Qty: 180 3RF docusate sodium 100 mg capsule 100 mg PO BEDTIME Qty: 90 3RF Interventions: ED Discharge Assessment Last Done: 08/25/21 22:25 Discharge Date/Time: 08/25/21 22:30
--- NOTE | 2021-08-25 17:15 | PC.NURSE ---
pt drowsy, oriented to person/place, hx dementia. pt reports weakness/dizziness, feeling sick, starting yesterday, elevated blood sugar readings at home yesterday and today ~300. pt took 36u of insulin around 1300, [place] [facility] [place] c/o 09/06 back/leg pain, denies recent fall/trauma - chronic per pt, 09/06 is pt's baseline. no new orders at this time. pending ED provider.
[2021-08-25 18:05] LABS: MANUAL DIFF FLAG NO
[2021-08-25 18:07] VITALS: BP 147/64; PULSE 74; RESP 16; TEMP 37.2; O2SAT 98
[2021-08-25 18:28] LABS: Basophils Absolute Auto 0.1 X10*3/uL (0.0-0.2); Basophils Percent Auto 0.4 % (0-2); Eosinophils Absolute Auto 0.2 X10*3/uL (0.0-0.4); Eosinophils Percent Auto 1.1 % (0-4); Hematocrit 38.8 % (37.0-47.0); Hemoglobin 12.6 g/dl (12.0-16.0); Imm Gran Abs Auto 0.12 X10*3/uL (0.00-0.03); Imm Gran Pct Auto 0.7 % (0.0-0.4); Lymphocytes Absolute Auto 4.1 X10*3/uL (1.2-4.9); Lymphocytes Percent Auto 24.8 % (20-40); Mean Corpuscular HGB Conc 32.5 g/dl (31.0-35.0); Mean Corpuscular Hemoglobin 26.2 pg (27.0-33.0); Mean Corpuscular Volume 80.7 fL (80.0-98.0); Mean Platelet Volume 12.1 fL (9.4-12.3); Monocytes Absolute Auto 1.4 X10*3/uL (0.1-1.2); Monocytes Percent Auto 8.1 % (2-11); Neutrophils Absolute Auto 10.8 x10*3/uL (2.0-8.3); Neutrophils Percent Auto 64.9 % (45-73); Platelet Count 185 X10*3/uL (160-400); Red Blood Count 4.81 X10*6/uL (4.20-5.50); Red Cell Distribution Width 13.7 % (11.0-16.0); White Blood Count 16.6 X10*3/uL (4.8-10.8)
[2021-08-25 18:30] LABS: Alanine Aminotransferase 12 U/L (0-31); Albumin Level 4.2 g/dL (3.5-5.0); Alkaline Phosphatase 95 U/L (39-117); Anion Gap 13 (12-20); Aspartate Amino Transferase 14 U/L (5-31); Bilirubin Total < 0.2 mg/dL (0.0-1.0); Blood Urea Nitrogen 9 mg/dL (9-16); Calcium 9.7 mg/dL (8.4-10.2); Carbon Dioxide 21 mmol/L (22-29); Chloride 106 mmol/L (96-108); Creatinine Clr Calc Pharmacy 49.6; Estimated Glomerular Filt Rate 56; Glucose Random 75 mg/dL (60-115); Sodium 136 mmol/L (135-145); Total Protein 7.7 g/dL (6.5-8.0)
[2021-08-25 19:03] LABS: Glucose, Whole Blood 64 mg/dL (60-115)
[2021-08-25 19:05] LABS: Appearance Urine CLEAR; Color Urine STRAW; Glucose Urine UA >=1000 MG/DL (NEG); Leukocyte Esterase Urine NEG (NEG); Nitrite Urine NEG (NEG); Specific Gravity - Urine <= 1.005 (1.005-1.025); Urine Blood NEG (NEG); Urine Ketones NEG (NEG); Urine Protein NEG (NEG-TRACE)
[2021-08-25 19:12] LABS: Amorphous Sediment Urine TRACE /LPF; Bacteria Urine TRACE /LPF; RBC Urine 0-2 /HPF (0); Squamous Epithelial Cell Urine 1+ /LPF
--- NOTE | 2021-08-25 19:22 | PC.NURSE ---
PATIENT BLOOD SUGAR WAS LOW ,DINNER TRAY WAS GIVEN ,PATIENT ATE 100 % OF MEALS AND DRANK 240 ML FLUIDS .
[2021-08-25 19:46] VITALS: BP 151/68; PULSE 72; RESP 16; TEMP 36.6; O2SAT 97
[2021-08-25] MEDS: traMADoL HCL 50 MG TABLET PO (19:46)
[2021-08-25 20:34] LABS: Glucose, Whole Blood 359 mg/dL (60-115)
[2021-08-25 21:52] VITALS: BP 144/62; PULSE 74; RESP 16; TEMP 36.5; O2SAT 98
== END 2021-08-25 22:30 | disposition home or self-care (01) ==
PROVIDERS: Emergency Provider Internal Medicine
DX: E11.65 Type 2 diabetes mellitus with hyperglycemia (principal); M54.9 Dorsalgia, unspecified; E11.22 Type 2 diabetes mellitus with diabetic chronic kidney disease; I12.9 Hypertensive chronic kidney disease with stage 1 through stage 4 chronic kidney disease, or unspecified chronic kidney disease; N18.30 Chronic kidney disease, stage 3 unspecified; F03.90 Unspecified dementia, unspecified severity, without behavioral disturbance, psychotic disturbance, mood disturbance, and anxiety; F17.210 Nicotine dependence, cigarettes, uncomplicated; Z79.4 Long term (current) use of insulin; Z79.899 Other long term (current) drug therapy
CPT/HCPCS: 36415; 80053; 81001; 82947; 85025; 99283; 99284

== ENCOUNTER 2021-10-23 10:05 | Outpatient (REF) | payer MEDICARE, MEDICAID, SELFPAY ==
--- NOTE | ~2021-10-23 | US_ITS ---
EXAMINATION: US ABDOMEN COMPLETE CLINICAL INFORMATION: Elevated lipase. COMPARISON: CT abdomen 02/03/2021. Ultrasound abdomen complete 10/22/2013 and 10/18/2012. TECHNIQUE: Real-time imaging of the abdominal viscera. FINDINGS: PANCREAS: Visualized portions unremarkable. ABDOMINAL AORTA: Visualized portions unremarkable. INFERIOR VENA CAVA: Yong portions unremarkable. LIVER: Unremarkable. GALLBLADDER: Unremarkable. COMMON BILE DUCT: Normal in caliber measuring up to 0.6 cm in diameter. RIGHT KIDNEY: 10.5 cm. Mild prominence of the right renal collecting system. LEFT KIDNEY: No hydronephrosis. No renal calculi or focal parenchymal lesions. The kidney measures 10.1 cm in maximum dimension. SPLEEN: Normal. The spleen measures 9.2 cm in maximum dimension. FREE FLUID: None. US/US abdomen complete IMPRESSION: 1. Mild prominence of the right renal collecting system with similar appearance to previous CT and ultrasound studies. An obstructing abnormality is not seen. No other significant abnormality.
== END 2021-10-23 10:06 | disposition home or self-care (01) ==
LOC: HO.US 10:05
PROVIDERS: Visit Provider Nurse Practitioner Family
DX: R74.8 Abnormal levels of other serum enzymes (principal)
CPT/HCPCS: 76700

== ENCOUNTER 2021-10-30 14:07 | Outpatient (REF) | payer MEDICARE, MEDICAID, SELFPAY ==
--- NOTE | ~2021-10-30 | MM_ITS ---
EXAMINATION: BONE DENSITOMETRY CLINICAL INDICATION: Menopausal. COMPARISON: Baseline BD dated 03/15/2008. TECHNIQUE: Using a [employer] DXA System (software version: 13.1) manufactured by [employer], dual-energy x-ray absorptiometry was performed of the lumbar spine and left hip. The images are of good technical quality. Summary results are attached. FINDINGS: AP SPINE L1-L4: Current: BMD 1.165 g/cm2, Z-score 1.5, T-score -0.1, normal, 0.9% increase from baseline (<5% change is not significant). Baseline: BMD 1.155 g/cm2. LEFT FEMUR, NECK: Current: BMD 0.811 g/cm2, Z-score -0.1, T-score -1.6, osteopenia. Baseline: BMD 1.007 g/cm2. LEFT FEMUR, TOTAL: Current: BMD 0.989 g/cm2, Z-score 1.1, T-score -0.1, normal, 9.5% decrease from baseline (<5% change is not significant). Baseline: BMD 1.093 g/cm2. IDENTIFIED RISK FACTORS: Renal, dementia, secondary osteoporosis, menopause, tobacco use (current smoker). HISTORY OF FRACTURE: None listed. MEDICATIONS: None listed. MM/XR DEXA axial skeleton IMPRESSION: 1. DIAGNOSIS: Osteopenia based on the lowest T-score value of -1.6 in the femoral neck applying World Health Organization criteria. 2. 10-YEAR FRACTURE RISK PREDICTION, FRAX: Major osteoporotic fracture (clinical spine, forearm, hip or shoulder) 5.4%. Hip fracture 1.1%. 3. Treatment Recommendations: NOF guidelines recommend consideration for treatment in postmenopausal women and men age 50 and older presenting with the following: -A hip or vertebral (clinical or morphometric) fracture. -T-score less than or equal to -2.5 at the femoral neck or spine after appropriate evaluation to exclude secondary causes. -Low bone mass at the hip or spine and a 10-year fracture probability by FRAX of greater than or equal to 3% for hip fracture or greater than or equal to 20% for major osteoporotic fracture based on the [place] adapted WHO algorithm. 4. Other Recommendations: All treatment decisions require clinical judgment and consideration of individual patient factors, including patient preferences, comorbidities, previous drug use, risk factors not captured in the FRAX model (e.g. frailty, falls, vitamin D deficiency, increased bone turnover, interval significant decline in bone density) and possible under or overestimation of fracture risk by FRAX. Additional medical evaluation for secondary cause of low bone mineral density may be appropriate. FUTURE SCAN RECOMMENDATION: People with diagnosed cases of osteoporosis or at high risk for fracture should have regular bone mineral density tests. For patients eligible for Medicare, routine testing is allowed once every 2 years. The testing frequency can be increased to one year for patients who have rapidly progressing disease, those who are receiving or discontinuing medical therapy to restore bone mass, or have additional risk factors.
== END 2021-10-30 14:08 | disposition home or self-care (01) ==
LOC: HO.MAMMO 14:07
PROVIDERS: PCP Nurse Practitioner Family; Visit Provider Nurse Practitioner Family
DX: Z13.820 Encounter for screening for osteoporosis (principal); Z78.0 Asymptomatic menopausal state
CPT/HCPCS: 77080

== ENCOUNTER 2021-11-07 11:49 | Emergency (ER) | payer MEDICARE, MEDICAID, SELFPAY ==
--- NOTE | ~2021-11-07 | CT_ITS ---
EXAMINATION: CT CHEST, ABDOMEN, AND PELVIS WITHOUT CONTRAST CLINICAL INFORMATION: Fall. Low back pain. COMPARISON: None TECHNIQUE: Multidetector volumetric CT imaging of the chest, abdomen, and pelvis was obtained without oral or intravenous contrast. Axial MIP volume rendering provided. Sagittal and coronal reformatted images were obtained. This CT examination was performed using dose optimization techniques as appropriate, variously including the following: *Automated exposure control *Adjustment of mA and/or kV according to patient size (this includes techniques or standardized protocols for targeted exams where dose is matched to indication/reason for exam; i.e. extremities or head) *Use of iterative reconstruction technique DLP: 711 mGy-cm FINDINGS: LUNGS: The lungs are clear with no evidence of inflammation or nodules. Mild bibasilar dependent atelectatic and/or fibrotic changes with possible scattered regions of mild mosaic lung parenchymal density. MEDIASTINUM: Moderate to severe coronary arterial calcification. Heart normal in size. No pericardial effusion. No mediastinal adenopathy by size criteria. PLEURA: There is no pleural effusion. No pleural mass or thickening. AXILLA: No lymphadenopathy. LIVER, GALLBLADDER, AND BILIARY TREE: The liver appears unremarkable in size, shape, and attenuation. No focal hepatic lesion or biliary ductal dilatation is appreciated. Gallbladder suboptimally visualized, possibly collapsed. PANCREAS: Unremarkable SPLEEN: Unremarkable ADRENAL GLANDS: Unremarkable KIDNEYS AND URETERS: The kidneys appear unremarkable in size, shape, and attenuation. Question mild right hydronephrosis. Mild fullness of the ureters, bilaterally. No urinary tract stone identified. BLADDER: Distended. No bladder mass identified. GASTROINTESTINAL TRACT: Probable 1.2 cm or less right hemicolonic lipomata (image 28, series 23). Unremarkable appearance of the distal ileum. No evidence of appendicitis. The small and large bowel otherwise appear unremarkable. ABDOMINAL WALL: No significant hernia is appreciated. LYMPH NODES: No evidence of adenopathy by size criteria. VASCULAR: Aortoiliac atherosclerosis. PELVIC VISCERA: Unremarkable OSSEOUS STRUCTURES: No acute finding. Degenerative changes of the lumbar spine. CT/CT abdomen pelvis wo IV con IMPRESSION: No acute finding. Distended urinary bladder. Question mild right hydronephrosis. Mild fullness of the ureters, bilaterally. No urinary tract stone or bladder mass identified. Cannot entirely exclude bladder outlet obstruction. Recommend clinical correlation. Atherosclerosis.
--- NOTE | ~2021-11-07 | CT_ITS ---
EXAMINATION: CT HEAD WITHOUT CONTRAST CLINICAL INFORMATION: Weakness. COMPARISON: March 04, 2021. TECHNIQUE: Contiguous axial imaging was performed from the skull base to vertex without intravenous administration of contrast. This CT examination was performed using dose optimization techniques as appropriate, variously including the following: *Automated exposure control *Adjustment of mA and/or kV according to patient size (this includes techniques or standardized protocols for targeted exams where dose is matched to indication/reason for exam; i.e. extremities or head) *Use of iterative reconstruction technique DLP: 541 mGy-cm FINDINGS: No intracranial hemorrhage, large infarction, or mass lesion is seen. Mild bilateral chronic periventricular white matter ischemic change. No extra-axial collection is appreciated. The ventricles are normal in size and configuration without evidence of hydrocephalus. Calcification of the distal internal carotid arteries and distal vertebral arteries. The mastoid air cells are clear. Bilateral sphenoid air-fluid levels. CT/CT head/brain wo IV con IMPRESSION: No acute intracranial finding. Calcification of the distal internal carotid arteries and distal vertebral arteries. Bilateral sphenoid air-fluid level suggesting acute sinusitis.
[2021-11-07 12:03] VITALS: BP 146/78; PULSE 82; O2SAT 97
[2021-11-07 12:06] VITALS: BP 159/60; PULSE 80; RESP 18; TEMP 37.2; O2SAT 98; BMI 25.3
[2021-11-07 12:34] VITALS: BP 168/75; PULSE 74; RESP 18; O2SAT 99
[2021-11-07 12:38] LABS: MANUAL DIFF FLAG NO
[2021-11-07 12:38] LABS: Glucose, Whole Blood 110 mg/dL (60-115)
[2021-11-07 12:41] LABS: Basophils Absolute Auto 0.1 X10*3/uL (0.0-0.2); Basophils Percent Auto 0.5 % (0-2); Eosinophils Absolute Auto 0.2 X10*3/uL (0.0-0.4); Eosinophils Percent Auto 1.2 % (0-4); Hematocrit 37.1 % (37.0-47.0); Hemoglobin 12.4 g/dl (12.0-16.0); Imm Gran Abs Auto 0.05 X10*3/uL (0.00-0.03); Imm Gran Pct Auto 0.3 % (0.0-0.4); Lymphocytes Absolute Auto 4.8 X10*3/uL (1.2-4.9); Lymphocytes Percent Auto 31.3 % (20-40); Mean Corpuscular HGB Conc 33.4 g/dl (31.0-35.0); Mean Corpuscular Hemoglobin 27.1 pg (27.0-33.0); Mean Corpuscular Volume 81.2 fL (80.0-98.0); Mean Platelet Volume 11.4 fL (9.4-12.3); Monocytes Absolute Auto 1.1 X10*3/uL (0.1-1.2); Neutrophils Absolute Auto 9.1 x10*3/uL (2.0-8.3); Neutrophils Percent Auto 59.7 % (45-73); Platelet Count 244 X10*3/uL (160-400); Red Blood Count 4.57 X10*6/uL (4.20-5.50); Red Cell Distribution Width 13.3 % (11.0-16.0); White Blood Count 15.2 X10*3/uL (4.8-10.8)
[2021-11-07 12:49] LABS: INTERNATIONAL NORM RATIO 1.1 (0.9-1.1); Prothrombin Time 13.1 SEC (10.0-13.1)
--- NOTE | 2021-11-07 12:50 | PC.NURSE ---
pt alert and oriented, skin appropriate for ethnicity, respirations even and unlabored, pt is very slow to respond to question but speech is clear, no facial droop, no visible hand drift, grasp strong and equal, moving all extremities, vs stable and normal sinus on the monitor. pt denies si but reports hi towards a female that lives in the same building as the pt, pt is hearing voices as well does not state what they are saying but states she was afraind that she would do something bad.
[2021-11-07 13:01] LABS: COVID-19 Test Negative (Negative)
--- NOTE | 2021-11-07 13:40 | ED.GENADULT ---
HPI - General Adult General Chief complaint: Psychiatric Symptoms Stated complaint: HEARING VOICES,NO SI/HI PER EMS Time Seen by Provider: 11/07/21 12:03 Source: patient and EMS Mode of arrival: EMS Limitations: altered mental status and other ( poor historian) History of Present Illness HPI narrative: this is a 66-year-old female past medical history significant for diabetes, schizoaffective disorder, CKD, dyslipidemia, chronic back painpresenting to the emergency department via ambulance with concerns of visual, auditory hallucinations and HI. According to patient she is hearing voices and seeing shadows, she told EMS that she thought this started after she started a new medication however unsure with the name of the medication is. She is unable to tell me what she is seeing or with the voices are saying. She reports she wants to harm someone who she is living with however denies SI. Denies drugs, alcohol tobacco. She also has vague compalints of anxiety and depression. Reports taking all meds as prescribed. Tells me she is having lower back pain to the lumbar region, tells me she has had pain like this before in the past, at this time patient adds that she had a fall about a week ago, she tells me she did not hit her head or lose consciousness however patient poor historian tells me she tripped, no preceding sx. Patient denies urinary / bowel incontinence / retention, weakness, numbness, tingling, saddle paresthesias, chest pain, shortness of breath, nausea, vomiting, headache, vision changes in dizziness. Related Data Home Medications Medication Instructions Recorded Confirmed atorvastatin 80 mg tablet 1 tab PO DAILY 03/04/21 11/07/21 lamotrigine 200 mg tablet 1 tab PO DAILY 03/04/21 11/07/21 vilazodone 40 mg tablet (Viibryd) 1 tab PO DAILY 03/04/21 11/07/21 ketotifen fumarate 0.025 % (0.035 1 drp ophthalmic (eye) BID 06/03/21 11/07/21 %) eye drops buspirone 15 mg tablet 1 tab PO BID 11/07/21 11/07/21 insulin aspar prot-insulin aspart See Rx Instructions .Route .COMPLEX 11/07/21 11/07/21 100 unit/mL (70-30) subcutaneous pen (Novolog Mix 70-30FlexPen U-100) lorazepam 0.5 mg tablet 1 tab PO DAILY PRN Anxiety 11/07/21 11/07/21 metoprolol tartrate 25 mg tablet 1 tab PO BID 11/07/21 11/07/21 Previous Rx's Medication Instructions Recorded acetaminophen 500 mg tablet 1,000 mg PO Q8H PRN Pain 30 days 10/09/20 (Tylenol Extra Strength) #120 tabs aspirin 81 mg tablet,delayed 81 mg PO DAILY 30 days #30 tabs 10/09/20 release (Adult Aspirin Regimen) diclofenac sodium 1 % topical gel 1 ea topical QID PRN Pain #1 g 10/09/20 lancets 28 gauge (FreeStyle #100 ea 10/09/20 Lancets) olanzapine 20 mg tablet (Zyprexa) 20 mg PO BEDTIME 30 days #30 tabs 10/09/20 insulin degludec 200 unit/mL (3 34 unit (0.17 mL) subcut DAILY 30 06/02/21 mL) subcutaneous pen ( #9 mL FlexTouch U-200 insulin) metformin 500 mg tablet 500 mg PO BID #60 tabs 06/02/21 docusate sodium 100 mg capsule 100 mg PO BEDTIME #90 caps 06/03/21 blood-glucose meter (FreeStyle #1 ea 06/24/21 Lite Meter kit) pen needle, diabetic 32 gauge x #100 ea 08/04/21 (Unifine Pentips) blood sugar diagnostic (FreeStyle #100 ea 08/31/21 Lite Strips) repaglinide 2 mg tablet 2 mg PO TID #90 tabs 09/01/21 lisinopril 10 mg tablet 10 mg PO DAILY #30 tabs 09/28/21 Allergies Allergy/AdvReac Type Severity Reaction Status Date / Time duloxetine [Cymbalta] Allergy Unknown Unknown Verified 08/25/21 17:06 hydroxyzine Allergy Unknown unknown Verified 08/25/21 17:06 risperidone Allergy Unknown Unknown Verified 08/25/21 17:06 trazodone Allergy Unknown Unknown Verified 08/25/21 17:06 quetiapine [From SEROQUEL] AdvReac Severe Acute Verified 08/25/21 17:06 Dystonic reaction Review of Systems Review of Systems: Constitutional : No Weight loss, No Fever, No Chills, No Fatigue, No Malaise ENT/Mouth : No sore throat, No Rhinorrhea Eyes: No Eye Pain, No Swelling, No Redness Cardiovascular : No Chest Pain, No SOB, No Dyspnea on Exertion, No Orthopnea, No Edema, No Palpitations Respiratory : No Cough, No Sputum, No Wheezing Gastrointestinal : No Nausea, No Vomiting, No Diarrhea, No Constipation, No abdominal Pain, No Hematochezia, No Melena Genitourinary : No Dysuria, No Urinary Frequency, No Hematuria, Musculoskeletal : + joint pain, No Myalgias, No Joint Swelling Skin : No Skin Lesions, No rash Neuro : No Weakness, No Numbness, No Dizziness, No Headache Psych : + Anxiety/Panic, + Depression, No SI, + HI All other systems reviewed and are negative Yes all other systems are reviewed and are negative [facility] Past Medical History Attestation statement: The following information was validated with the patient. Source: old records reviewed and nursing notes reviewed Medical History (Updated 11/07/21 @ 20:49 by BARON Llanos) CAD (coronary artery disease) Chronic kidney disease, stage 3 unspecified Dementia Depression with anxiety Dermatitis Dermatophytosis Diabetes mellitus with hyperglycemia Dyslipidemia Essential hypertension Joint pain PTSD (post-traumatic stress disorder) Schizoaffective disorder Smoking 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 Mother No problems noted. Social History Social History Household Members: None Household Members Other:: has [facility]D Services Housing: Apartment Do you presently have visiting nurse or other home services: No Alcohol intake: former Patient Tobacco Use Status: Current everyday Tobacco user Tobacco use type: Cigarette Cigarette Packs Per Day: 1 Cigarettes Per Day: 20.0 Second Hand Smoke Exposure: No Use of substances other than those prescribed or required for medical reasons: No Advance Directives: No Advance Directives Information Provided: No Advance Directives Date on File: 09/30/20 service: No Sexual orientation: Straight/Heterosexual Physical Exam ED Vital Signs: Vital Signs - 24 hr 11/07/21 12:06 11/07/21 12:34 11/07/21 14:56 Temperature 99.0 F Pulse Rate 80 74 75 Respiratory Rate 18 18 18 Blood Pressure 159/60 H 168/75 H 131/55 L Pulse Oximetry 98 99 98 Oxygen Delivery Method Room Air Room Air Room Air 11/07/21 15:43 11/07/21 20:39 Temperature 97.1 F 97.7 F Pulse Rate 70 77 Respiratory Rate 16 18 Blood Pressure 150/56 H 155/70 H Pulse Oximetry 98 96 Oxygen Delivery Method Room Air Room Air BMI result Body Mass Index 25.3 Appearance: Alert.? Oriented X3.? No acute distress.? Head: Normocephalic, atraumatic, no step-offs or deformities Eyes: Pupils equal, round and reactive to light.? ENT: Pharynx normal.? Neck: Normal inspection.? Neck supple.? CVS: Normal heart rate and rhythm.? Pulses normal.? Respiratory: No respiratory distress.? Breath sounds normal.? Abdomen: Soft and nontender.? Skin: Skin warm and dry.? Normal skin color.? Normal skin turgor.? Extremities: No lower extremity edema. Global weakness. Back: No midline tenderness, no C-spine tenderness, full range of motion, no CVA tenderness bilaterally Neuro: Oriented X 3.? No motor deficit.? No sensory deficit. Neuro nonfocal. Ambulating w/ steady gait and normal cordination Course Reevaluation(s) Reevaluation #1: Patient's CBC with a leukocytosis, however this appears to be chronic in nature, her last visit her WBC count was 16.6. Chemistry with a low magnesium, patient given IV Mag. Patient is also noted to have a low-sodium, patient receiving IV fluids. Patient's lactic acid within normal limits, again reassuring that infection not likely despire elevated wbc. Coags wnl. Patient's UA clean. Ethanol negative. Urine toxicology negative. COVID negative. Will repeat chemistry after patient receives IV hydration and mag Time: 15:05 Reevaluation #2: Improvement in CMP. CT of the abdomen and pelvis concerning for bladder outlet obstruction however I do not believe patient has bladder outlet obstruction, no urinary complaints at this time, patient has been urinating throughout her visit, no CVA tenderness, normal stream. Chest CT with no acute findings. Head CT with no acute findings. Time: 16:36 Reevaluation #3: Patient was evaluated by the behavioral health team who state this is likely depression, patient denies suicidal and homicidal ideation to them. She clarifies that sometimes she just gets angry at people however does not want to harm them. Patient has outpatient providers who she will follow up with. Patient requesting to go home, will follow-up with outpatient providers. Diagnosis schizoaffective disorder with depression. At this time I feel comfortable with plan. Time: 20:48 Medical Decision Making MDM Narrative Medical decision making narrative: 1203 66-year-old female presents with auditory hallucinations, visual hallucinations, homicidal ideation. Patient also reports recent fall, patient poor historian and unable to provide me with clear history. Physical examination benign. Plan at this time is to medically clear patient in for patient to be evaluated by the behavioral health team. Will obtain CT of the chest, abdomen, pelvis head/ brain to rule out fractures, dislocations, bleeding, intracranial hemorrhage. Although based off patient's examination unlikely. Medical Records Medical records reviewed: Yes I reviewed the patient's medical records. Lab Data Lab results reviewed: Yes I reviewed the patient's lab results. Result diagrams: 11/07/21 12:34 11/07/21 15:51 Labs: Lab Results 11/07/21 11/07/21 11/07/21 Range/Units 12:27 12:34 12:34 WBC 15.2 H (4.8-10.8) X10*3/uL RBC 4.57 (4.20-5.50) X10*6/uL Hgb 12.4 (12.0-16.0) g/dl Hct 37.1 (37.0-47.0) % MCV 81.2 (80.0-98.0) fL MCH 27.1 (27.0-33.0) pg MCHC 33.4 (31.0-35.0) g/dl RDW 13.3 (11.0-16.0) % Plt Count 244 D (160-400) X10*3/uL MPV 11.4 (9.4-12.3) fL Immature Gran % (Auto) 0.3 (0.0-0.4) % Neut % (Auto) 59.7 (45-73) % Lymph % (Auto) 31.3 (20-40) % [place] % (Auto) 7.0 (2-11) % Eos % (Auto) 1.2 (0-4) % Baso % (Auto) 0.5 (0-2) % Lymph # (Auto) 4.8 (1.2-4.9) X10*3/uL [place] # (Auto) 1.1 (0.1-1.2) X10*3/uL Eos # (Auto) 0.2 (0.0-0.4) X10*3/uL Baso # (Auto) 0.1 (0.0-0.2) X10*3/uL Abs Immat Gran (auto) 0.05 H (0.00-0.03) X10*3/uL Absolute Neuts (auto) 9.1 H (2.0-8.3) x10*3/uL Absolute Nucleated RBC 0.000 (0.0-0.012) X10*3/uL Nucleated RBC % (auto) 0.0 (0.0-0.2) /100WBC PT (10.0-13.1) SEC INR (0.9-1.1) Sodium 129 L (135-145) mmol/L Potassium 4.1 (3.3-5.1) mmol/L Chloride 96 (96-108) mmol/L Carbon Dioxide 22 (22-29) mmol/L Anion Gap 15 (12-20) BUN 16 D (9-16) mg/dL Creatinine 1.05 (0.5-1.4) mg/dL Estim Creat Clear Calc 50.2 Estimated GFR 53 POC Glucose 110 (60-115) mg/dL Random Glucose 116 H (60-115) mg/dL Lactic Acid (0.5-2.0) mmol/L Calcium 9.8 (8.4-10.2) mg/dL Magnesium 1.3 L* (1.6-2.6) mg/dL Total Bilirubin 0.2 (0.0-1.0) mg/dL AST 18 (5-31) U/L ALT 15 (0-31) U/L Alkaline Phosphatase 99 (39-117) U/L Total Protein 7.7 (6.5-8.0) g/dL Albumin 4.3 (3.5-5.0) g/dL Urine Color Urine Appearance Urine pH (5.0-9.0) Ur Specific [place] (1.005-1.025) Urine Protein (Neg-Trace) mg/dL Urine Glucose (UA) (Negative) mg/dL Urine Ketones (Negative) mg/dL Urine Blood (Negative) Urine Nitrite (Negative) Ur Leukocyte Esterase (Negative) Urine RBC (0-2) /HPF Urine WBC (0-5) /HPF Ur Squamous Epith Cells (0-2) /HPF Urine Bacteria (None Seen) Hyaline Casts (0-2) /LPF Urine Opiates Screen (Not Detect) Urine Fentanyl Screen (Not Detect) Ur Barbiturates Screen (Not Detect) Ur Phencyclidine Scrn (Not Detect) Ur Amphetamines Screen (Not Detect) U Benzodiazepines Scrn (Not Detect) Urine Cocaine Screen (Not Detect) U Marijuana (THC) Screen (Not Detect) Ethyl Alcohol < 10 mg/dL COVID-19 ([facility]) (Negative) COVID-19 Clin Com 11/07/21 11/07/21 11/07/21 Range/Units 12:34 12:34 13:48 WBC (4.8-10.8) X10*3/uL RBC (4.20-5.50) X10*6/uL Hgb (12.0-16.0) g/dl Hct (37.0-47.0) % MCV (80.0-98.0) fL MCH (27.0-33.0) pg MCHC (31.0-35.0) g/dl RDW (11.0-16.0) % Plt Count (160-400) X10*3/uL MPV (9.4-12.3) fL Immature Gran % (Auto) (0.0-0.4) % Neut % (Auto) (45-73) % Lymph % (Auto) (20-40) % [place] % (Auto) (2-11) % Eos % (Auto) (0-4) % Baso % (Auto) (0-2) % Lymph # (Auto) (1.2-4.9) X10*3/uL [place] # (Auto) (0.1-1.2) X10*3/uL Eos # (Auto) (0.0-0.4) X10*3/uL Baso # (Auto) (0.0-0.2) X10*3/uL Abs Immat Gran (auto) (0.00-0.03) X10*3/uL Absolute Neuts (auto) (2.0-8.3) x10*3/uL Absolute Nucleated RBC (0.0-0.012) X10*3/uL Nucleated RBC % (auto) (0.0-0.2) /100WBC PT 13.1 (10.0-13.1) SEC INR 1.1 (0.9-1.1) Sodium (135-145) mmol/L Potassium (3.3-5.1) mmol/L Chloride (96-108) mmol/L Carbon Dioxide (22-29) mmol/L Anion Gap (12-20) BUN (9-16) mg/dL Creatinine (0.5-1.4) mg/dL Estim Creat Clear Calc Estimated GFR POC Glucose (60-115) mg/dL Random Glucose (60-115) mg/dL Lactic Acid (0.5-2.0) mmol/L Calcium (8.4-10.2) mg/dL Magnesium (1.6-2.6) mg/dL Total Bilirubin (0.0-1.0) mg/dL AST (5-31) U/L ALT (0-31) U/L Alkaline Phosphatase (39-117) U/L Total Protein (6.5-8.0) g/dL Albumin (3.5-5.0) g/dL Urine Color Yellow Urine Appearance Clear Urine pH 6.0 (5.0-9.0) Ur Specific [place] <= 1.005 (1.005-1.025) Urine Protein Negative (Neg-Trace) mg/dL Urine Glucose (UA) Negative (Negative) mg/dL Urine Ketones Negative (Negative) mg/dL Urine Blood Negative (Negative) Urine Nitrite Negative (Negative) Ur Leukocyte Esterase Trace H (Negative) Urine RBC 0-2 (0-2) /HPF Urine WBC 0-5 (0-5) /HPF Ur Squamous Epith Cells 0-2 (0-2) /HPF Urine Bacteria None Seen (None Seen) Hyaline Casts 0-2 (0-2) /LPF Urine Opiates Screen (Not Detect) Urine Fentanyl Screen (Not Detect) Ur Barbiturates Screen (Not Detect) Ur Phencyclidine Scrn (Not Detect) Ur Amphetamines Screen (Not Detect) U Benzodiazepines Scrn (Not Detect) Urine Cocaine Screen (Not Detect) U Marijuana (THC) Screen (Not Detect) Ethyl Alcohol mg/dL COVID-19 ([facility]) Negative (Negative) COVID-19 Clin Com See Note 11/07/21 11/07/21 11/07/21 Range/Units 13:48 14:10 15:51 WBC (4.8-10.8) X10*3/uL RBC (4.20-5.50) X10*6/uL Hgb (12.0-16.0) g/dl Hct (37.0-47.0) % MCV (80.0-98.0) fL MCH (27.0-33.0) pg MCHC (31.0-35.0) g/dl RDW (11.0-16.0) % Plt Count (160-400) X10*3/uL MPV (9.4-12.3) fL Immature Gran % (Auto) (0.0-0.4) % Neut % (Auto) (45-73) % Lymph % (Auto) (20-40) % [place] % (Auto) (2-11) % Eos % (Auto) (0-4) % Baso % (Auto) (0-2) % Lymph # (Auto) (1.2-4.9) X10*3/uL [place] # (Auto) (0.1-1.2) X10*3/uL Eos # (Auto) (0.0-0.4) X10*3/uL Baso # (Auto) (0.0-0.2) X10*3/uL Abs Immat Gran (auto) (0.00-0.03) X10*3/uL Absolute Neuts (auto) (2.0-8.3) x10*3/uL Absolute Nucleated RBC (0.0-0.012) X10*3/uL Nucleated RBC % (auto) (0.0-0.2) /100WBC PT (10.0-13.1) SEC INR (0.9-1.1) Sodium (135-145) mmol/L Potassium (3.3-5.1) mmol/L Chloride (96-108) mmol/L Carbon Dioxide (22-29) mmol/L Anion Gap (12-20) BUN (9-16) mg/dL Creatinine (0.5-1.4) mg/dL Estim Creat Clear Calc Estimated GFR POC Glucose (60-115) mg/dL Random Glucose (60-115) mg/dL Lactic Acid 0.7 (0.5-2.0) mmol/L Calcium (8.4-10.2) mg/dL Magnesium 2.0 (1.6-2.6) mg/dL Total Bilirubin (0.0-1.0) mg/dL AST (5-31) U/L ALT (0-31) U/L Alkaline Phosphatase (39-117) U/L Total Protein (6.5-8.0) g/dL Albumin (3.5-5.0) g/dL Urine Color Urine Appearance Urine pH (5.0-9.0) Ur Specific [place] (1.005-1.025) Urine Protein (Neg-Trace) mg/dL Urine Glucose (UA) (Negative) mg/dL Urine Ketones (Negative) mg/dL Urine Blood (Negative) Urine Nitrite (Negative) Ur Leukocyte Esterase (Negative) Urine RBC (0-2) /HPF Urine WBC (0-5) /HPF Ur Squamous Epith Cells (0-2) /HPF Urine Bacteria (None Seen) Hyaline Casts (0-2) /LPF Urine Opiates Screen Not Detected (Not Detect) Urine Fentanyl Screen Not Detected (Not Detect) Ur Barbiturates Screen Not Detected (Not Detect) Ur Phencyclidine Scrn Not Detected (Not Detect) Ur Amphetamines Screen Not Detected (Not Detect) U Benzodiazepines Scrn Not Detected (Not Detect) Urine Cocaine Screen Not Detected (Not Detect) U Marijuana (THC) Screen Not Detected (Not Detect) Ethyl Alcohol mg/dL COVID-19 ([facility]) (Negative) COVID-19 Clin Com 11/07/21 Range/Units 15:51 WBC (4.8-10.8) X10*3/uL RBC (4.20-5.50) X10*6/uL Hgb (12.0-16.0) g/dl Hct (37.0-47.0) % MCV (80.0-98.0) fL MCH (27.0-33.0) pg MCHC (31.0-35.0) g/dl RDW (11.0-16.0) % Plt Count (160-400) X10*3/uL MPV (9.4-12.3) fL Immature Gran % (Auto) (0.0-0.4) % Neut % (Auto) (45-73) % Lymph % (Auto) (20-40) % [place] % (Auto) (2-11) % Eos % (Auto) (0-4) % Baso % (Auto) (0-2) % Lymph # (Auto) (1.2-4.9) X10*3/uL [place] # (Auto) (0.1-1.2) X10*3/uL Eos # (Auto) (0.0-0.4) X10*3/uL Baso # (Auto) (0.0-0.2) X10*3/uL Abs Immat Gran (auto) (0.00-0.03) X10*3/uL Absolute Neuts (auto) (2.0-8.3) x10*3/uL Absolute Nucleated RBC (0.0-0.012) X10*3/uL Nucleated RBC % (auto) (0.0-0.2) /100WBC PT (10.0-13.1) SEC INR (0.9-1.1) Sodium 136 (135-145) mmol/L Potassium 4.0 (3.3-5.1) mmol/L Chloride 104 (96-108) mmol/L Carbon Dioxide 19 L (22-29) mmol/L Anion Gap 17 (12-20) BUN 14 (9-16) mg/dL Creatinine 0.89 (0.5-1.4) mg/dL Estim Creat Clear Calc 59.2 Estimated GFR > 60 POC Glucose (60-115) mg/dL Random Glucose 78 (60-115) mg/dL Lactic Acid (0.5-2.0) mmol/L Calcium 9.2 D (8.4-10.2) mg/dL Magnesium (1.6-2.6) mg/dL Total Bilirubin (0.0-1.0) mg/dL AST (5-31) U/L ALT (0-31) U/L Alkaline Phosphatase (39-117) U/L Total Protein (6.5-8.0) g/dL Albumin (3.5-5.0) g/dL Urine Color Urine Appearance Urine pH (5.0-9.0) Ur Specific [place] (1.005-1.025) Urine Protein (Neg-Trace) mg/dL Urine Glucose (UA) (Negative) mg/dL Urine Ketones (Negative) mg/dL Urine Blood (Negative) Urine Nitrite (Negative) Ur Leukocyte Esterase (Negative) Urine RBC (0-2) /HPF Urine WBC (0-5) /HPF Ur Squamous Epith Cells (0-2) /HPF Urine Bacteria (None Seen) Hyaline Casts (0-2) /LPF Urine Opiates Screen (Not Detect) Urine Fentanyl Screen (Not Detect) Ur Barbiturates Screen (Not Detect) Ur Phencyclidine Scrn (Not Detect) Ur Amphetamines Screen (Not Detect) U Benzodiazepines Scrn (Not Detect) Urine Cocaine Screen (Not Detect) U Marijuana (THC) Screen (Not Detect) Ethyl Alcohol mg/dL COVID-19 ([facility]) (Negative) COVID-19 Clin Com Critical Care Time Critical Care Time Critical Care Time: No Discharge Plan Discharge Clinical Impression: Schizoaffective disorder, Depression Patient Disposition: Home, Self-Care Instructions: Depression (ED), Schizoaffective Disorder (ED) Additional Instructions: Take your medications as prescribed. If you were prescribed antibiotics today, it is important that you take your medication to their entirety, do not skip any doses, do not finish them early. Follow-up with your primary care provider this week. Return to the emergency department with new or worsening symptoms. Such as fevers, chills, chest pain, shortness of breath, nausea, vomiting, dizziness, headache, vision changes, lethargy, suicidal and homicidal ideation In case of emergency call 911 CT/CT head/brain wo IV con IMPRESSION: ? No acute intracranial finding. ? Calcification of the distal internal carotid arteries and distal vertebral arteries. ? Bilateral sphenoid air-fluid level suggesting acute sinusitis. CT/CT abdomen pelvis wo IV con IMPRESSION: ? No acute finding. ? Distended urinary bladder. Question mild right hydronephrosis. Mild fullness of the ureters, bilaterally. No urinary tract stone or bladder mass identified. Cannot entirely exclude bladder outlet obstruction. Recommend clinical correlation. ? Atherosclerosis. Prescriptions: No Action (DME) blood-glucose meter [FreeStyle Lite Meter] Kit See Rx Instructions .ROUTE .MEDSUPPLY Qty: 1 0RF Rx Instructions: As directed 2x/day (DME) pen needle, diabetic [Unifine Pentips] 32 gauge x /32 needle 1 ea miscellaneous TID Qty: 100 11RF Rx Instructions: 4x daily (DME) FreeStyle Lite Strips Strip See Rx Instructions .Route Qty: 100 5RF Rx Instructions: Tests 4X/day repaglinide 2 mg tablet 2 mg PO TID Qty: 90 4RF Rx Instructions: administer within 30 minutes of a meal or snack lisinopril 10 mg tablet 10 mg PO DAILY Qty: 30 6RF olanzapine [Zyprexa] 20 mg tablet 20 mg PO BEDTIME 30 Days Qty: 30 0RF aspirin [Adult Aspirin Regimen] 81 mg tablet,delayed release (DR/EC) 81 mg PO DAILY 30 Days Qty: 30 11RF acetaminophen [Tylenol Extra Strength] 500 mg Tablet 1,000 mg PO Q8H PRN (Reason: Pain) 30 Days Qty: 120 0RF diclofenac sodium 1 % Gel 1 ea TOPICAL QID PRN (Reason: Pain) Qty: 1 0RF (DME) lancets [FreeStyle Lancets] 28 gauge misc 1 gauge topical TID Qty: 100 11RF atorvastatin 80 mg tablet 1 tab PO DAILY lamotrigine 200 mg tablet 1 tab PO DAILY vilazodone [Viibryd] 40 mg tablet 1 tab PO DAILY lorazepam 0.5 mg tablet 1 tab PO DAILY PRN (Reason: Anxiety) buspirone 15 mg tablet 1 tab PO BID insulin asp prt-insulin aspart [Novolog Mix 70-30FlexPen U-100] 100 unit/mL (70-30) insulin pen See Rx Instructions .ROUTE .COMPLEX Rx Instructions: PER SLIDING SCALE metoprolol tartrate 25 mg tablet 1 tab PO BID Tresiba FlexTouch U-200 200 unit/mL (3 mL) insulin pen 34 unit subcut DAILY 30 Days Qty: 9 6RF metformin 500 mg tablet 500 mg PO BID Qty: 60 5RF ketotifen fumarate 0.025 % (0.035 %) drops 1 drp ophthalmic (eye) BID Rx Instructions: administer at least 8 hours apart docusate sodium 100 mg capsule 100 mg PO BEDTIME Qty: 90 3RF Referrals: [facility] [Provider Group] - 1 day Jodi Toussaint [Primary Care Provider] - 2 days Stand Alone Forms: Work/School Release
[2021-11-07 13:41] LABS: Alanine Aminotransferase 15 U/L (0-31); Albumin Level 4.3 g/dL (3.5-5.0); Alkaline Phosphatase 99 U/L (39-117); Anion Gap 15 (12-20); Aspartate Amino Transferase 18 U/L (5-31); Bilirubin Total 0.2 mg/dL (0.0-1.0); Blood Urea Nitrogen 16 mg/dL (9-16); Calcium 9.8 mg/dL (8.4-10.2); Carbon Dioxide 22 mmol/L (22-29); Chloride 96 mmol/L (96-108); Creatinine Clr Calc Pharmacy 50.2; Estimated Glomerular Filt Rate 53; Ethanol < 10 mg/dL; Glucose Random 116 mg/dL (60-115); Magnesium 1.3 mg/dL (1.6-2.6); Potassium 4.1 mmol/L (3.3-5.1); Sodium 129 mmol/L (135-145); Total Protein 7.7 g/dL (6.5-8.0)
[2021-11-07 13:56] LABS: Appearance Urine Clear; Color Urine Yellow; Glucose Urine UA Negative (Negative); Leukocyte Esterase Urine Trace (Negative); Nitrite Urine Negative (Negative); Specific Gravity - Urine <= 1.005 (1.005-1.025); Urine Blood Negative (Negative); Urine Ketones Negative (Negative); Urine Protein Negative (Neg-Trace)
[2021-11-07] MEDS: Magnesium Sulfate/H2O 2 GM/50 ML PIGGYBACK IV (14:01)
[2021-11-07 14:05] LABS: Bacteria Urine None Seen (None Seen); Hyaline Casts Urine 0-2 /LPF (0-2); RBC Urine 0-2 /HPF (0-2); Squamous Epithelial Cell Urine 0-2 /HPF (0-2); WBC Urine 0-5 /HPF (0-5)
[2021-11-07 14:08] LABS: Amphetamine Screen Urine Not Detected (Not Detect); Barbiturates, Urine Not Detected (Not Detect); Benzodiazepines Screen Urine Not Detected (Not Detect); Cannabinoid Screen Urine Not Detected (Not Detect); Cocaine Screen Urine Not Detected (Not Detect); Fentanyl, urine Not Detected (Not Detect); Opiate Screen Urine Not Detected (Not Detect); Phencyclidine Screen Urine Not Detected (Not Detect)
[2021-11-07 14:41] LABS: Lactic Acid 0.7 mmol/L (0.5-2.0)
--- NOTE | 2021-11-07 14:44 | PHA.MEDREC ---
Pharmacy Consult ? Medication Reconciliation Pharmacy has completed the medication reconciliation. Spoke to patient who didnt know meds. Spoke to both sons who didnt know meds and said a home nurse deals will all her meds and puts them in a lock box so they dont have access. They dont know who the nursing company is or have contact info. Med rec based of previous discharge and claim history. Insulin doses are based off last time here in may
[2021-11-07 14:56] VITALS: BP 131/55; PULSE 75; RESP 18; O2SAT 98
[2021-11-07] MEDS: 0.9 % Sodium Chloride 1,000 ML 999 ML IV (14:59)
[2021-11-07 15:43] VITALS: BP 150/56; PULSE 70; RESP 16; TEMP 36.2; O2SAT 98
[2021-11-07 16:15] LABS: Anion Gap 17 (12-20); Blood Urea Nitrogen 14 mg/dL (9-16); Calcium 9.2 mg/dL (8.4-10.2); Carbon Dioxide 19 mmol/L (22-29); Chloride 104 mmol/L (96-108); Creatinine Clr Calc Pharmacy 59.2; Estimated Glomerular Filt Rate > 60; Glucose Random 78 mg/dL (60-115); Sodium 136 mmol/L (135-145)
--- NOTE | 2021-11-07 17:57 | PC.NURSE ---
called dietary to inform of patient presence in pod
--- NOTE | 2021-11-07 20:25 | ECG_ITS ---
Test Reason : med clearance Blood Pressure : / mmHG Vent. Rate : 075 BPM Atrial Rate : 075 BPM P-R Int : 178 ms QRS Dur : 128 ms QT Int : 394 ms P-R-T Axes : 079 -55 058 degrees QTc Int : 439 ms Normal sinus rhythm Right bundle branch block Left anterior fascicular block Bifascicular block Minimal voltage criteria for LVH, may be normal variant ( R in aVL ) Abnormal ECG When compared with ECG of 29-SEP-2020 13:54, No significant change was found Referred By: Elen Gilliland Electronically Signed By:SUSAN CROWE
[2021-11-07 20:39] VITALS: BP 155/70; PULSE 77; RESP 18; TEMP 36.5; O2SAT 96
[2021-11-07] MEDS: OLANZapine 10 MG TABLET 20 MG PO (20:43)
[2021-11-07] MEDS: Docusate Sodium 100 MG CAPSULE PO (20:43)
[2021-11-07] MEDS: busPIRone HCl 5 MG TABLET 15 MG PO (20:43)
[2021-11-07] MEDS: Metoprolol Tartrate 25 MG TABLET PO (20:43)
== END 2021-11-07 20:58 | disposition home or self-care (01) ==
PROVIDERS: Physician Assistant; Emergency Provider Emergency Medicine; PCP Nurse Practitioner Family
DX: F25.1 Schizoaffective disorder, depressive type (principal); R45.850 Homicidal ideations; E83.42 Hypomagnesemia; Z20.822 Contact with and (suspected) exposure to COVID-19; F43.10 Post-traumatic stress disorder, unspecified; F41.8 Other specified anxiety disorders; E11.22 Type 2 diabetes mellitus with diabetic chronic kidney disease; I12.9 Hypertensive chronic kidney disease with stage 1 through stage 4 chronic kidney disease, or unspecified chronic kidney disease; N18.30 Chronic kidney disease, stage 3 unspecified; E78.5 Hyperlipidemia, unspecified; F17.210 Nicotine dependence, cigarettes, uncomplicated; Z79.02 Long term (current) use of antithrombotics/antiplatelets; Z79.899 Other long term (current) drug therapy; Z79.4 Long term (current) use of insulin
CPT/HCPCS: 36415; 70450; 71250; 74176; 80048; 80053; 80307; 81001; 81003; 82077; 82947; 83605; 83735; 85025; 85610; 87040; 87635; 93005; 96361; 96365; 96366; 99285; J3475

== ENCOUNTER → 2021-12-02 10:35 | Outpatient (BNVA) | payer MEDICARE, MEDICAID, SELFPAY | PROVIDERS: PCP Internal Medicine; Referring Provider Internal Medicine; Visit Provider Nurse Practitioner Family | DX: K59.04 Chronic idiopathic constipation (principal) | CPT/HCPCS: 99212 ==

== ENCOUNTER 2022-01-06 12:25 | Outpatient (REF) | payer MEDICARE, MEDICAID, SELFPAY ==
[2022-01-06 13:22] LABS: Estimated Average Glucose 214 mg/dL; Hemoglobin A1c % 9.1 %
[2022-01-06 13:54] LABS: TSH reflex Free T4 3.38 uIU/mL (0.32-4.0)
== END 2022-01-06 12:26 | disposition home or self-care (01) ==
LOC: HO.LAB 12:25
PROVIDERS: PCP Internal Medicine; Visit Provider Nurse Practitioner Family
DX: K59.04 Chronic idiopathic constipation (principal); E11.9 Type 2 diabetes mellitus without complications; R63.4 Abnormal weight loss
CPT/HCPCS: 36415; 83036; 84443; 99212

== ENCOUNTER 2022-02-01 11:00 | Outpatient (REF) | payer MEDICARE, MEDICAID, SELFPAY ==
[2022-02-08 17:54] LABS: Pancreatic Elastase-1 >500 mcg/g
== END 2022-02-01 11:01 | disposition home or self-care (01) ==
LOC: HO.LNP 11:00
PROVIDERS: Visit Provider Nurse Practitioner Family
DX: R63.4 Abnormal weight loss (principal)
CPT/HCPCS: 82656

== ENCOUNTER → 2022-05-19 11:15 | Outpatient (BNVA) | payer MEDICARE, MEDICAID, SELFPAY | PROVIDERS: PCP Internal Medicine; Visit Provider Nurse Practitioner Family | DX: K59.04 Chronic idiopathic constipation (principal); K21.9 Gastro-esophageal reflux disease without esophagitis | CPT/HCPCS: 99212 ==

== ENCOUNTER → 2022-06-16 10:43 | Outpatient (BNVA) | payer MEDICARE, MEDICAID, SELFPAY | PROVIDERS: PCP Internal Medicine; Visit Provider Internal Medicine Endocrinology, Diabetes & Metabolism | DX: E11.65 Type 2 diabetes mellitus with hyperglycemia (principal); E11.22 Type 2 diabetes mellitus with diabetic chronic kidney disease; E11.42 Type 2 diabetes mellitus with diabetic polyneuropathy; N18.30 Chronic kidney disease, stage 3 unspecified; Z79.4 Long term (current) use of insulin | CPT/HCPCS: 82947; 83036; 99212 ==

== ENCOUNTER 2022-07-23 13:03 | Outpatient (REF) | payer MEDICARE, MEDICAID, SELFPAY ==
--- NOTE | ~2022-07-23 | MM_ITS ---
EXAMINATION: MM SCREENING DIGITAL BREAST TOMOSYNTHESIS, BILATERAL CLINICAL INFORMATION: Screening. Asymptomatic. The lifetime risk of breast cancer based on the Tyrer-Cuzick Model is 11%. COMPARISON: Mammography: 06/05/2021, 05/20/2020, 10/26/2018 TECHNIQUE: Digital breast tomosynthesis is performed in both the craniocaudal and mediolateral oblique views along with computer-aided detection (CAD). Synthesized 2D images are generated from the tomosynthesis. FINDINGS: The breasts are heterogeneously dense, which may obscure small masses (ACR BI-RADS breast composition Category c). Parenchymal pattern is similar to prior exams and there is no significant mass or developing density or architectural abnormality. The bilateral axilla and skin contours are unremarkable. Again, there are scattered bilateral vascular and random calcifications, both punctate and coarse. Left breast has increased loosely grouped calcifications posterior 3:00 position and mid central breast, respectively. This may be related to fibroadenomatous changes. Patient will be recalled for additional magnification views to further characterize. MM/MM tomosynthesis screening BI IMPRESSION: Left: -Calcifications posterior 3:00 and mid central breast, possibly fibroadenomatous changes. Right: -No mammographic evidence of malignancy. ASSESSMENT: BI-RADS 0: Incomplete - Need Additional Imaging Evaluation RECOMMENDATION: 1. Additional views left breast (magnification CC x 2- central and outer; magnification ML). 2. Radiology department staff will contact the patient for additional imaging. This patient's information was entered into a reminder system with a target due date for their next mammogram.
== END 2022-07-23 13:04 | disposition home or self-care (01) ==
LOC: HO.MAMMO 13:03
PROVIDERS: PCP Internal Medicine; Visit Provider Internal Medicine
DX: Z12.31 Encounter for screening mammogram for malignant neoplasm of breast (principal)
CPT/HCPCS: 77063; 77067

== ENCOUNTER 2022-08-16 13:09 | Outpatient (REF) | payer MEDICARE, MEDICAID, SELFPAY ==
--- NOTE | ~2022-08-16 | MM_ITS ---
EXAMINATION: MM DIAGNOSTIC DIGITAL MAMMOGRAPHY, LEFT CLINICAL INFORMATION: Recall from screening for loosely grouped probable benign calcifications posterior 3:00 and mid central left breast, respectively, possibly fibroadenomatous changes. COMPARISON: Multiple prior mammography exams including most recent 07/23/2022. TECHNIQUE: Digital mammography is performed in the following views: Magnification CC x2, magnification exaggerated CC, magnification ML x2. FINDINGS: The breasts are heterogeneously dense, which may obscure small masses (ACR BI-RADS breast composition Category c). The additional views show scattered punctate, coarse, and vascular calcifications in the left breast. The 2 areas for recall posterior 3:00 and mid central left breast are grouped course, suspect fibroadenomatous etiology. Management plan is for short interval six-month follow-up left breast to include magnification views. Results are discussed with the patient at time of visit, using an language interpreter. MM/MM added views LT IMPRESSION: Calcifications for recall are probably benign, possibly fibroadenomatous change. ASSESSMENT: BI-RADS 3: Probably Benign RECOMMENDATION: Diagnostic left mammography in 6 months. This patient's information was entered into a reminder system with a target due date for their next mammogram.
== END 2022-08-16 13:10 | disposition home or self-care (01) ==
LOC: HO.MAMMO 13:09
PROVIDERS: PCP Internal Medicine; Visit Provider Internal Medicine
DX: R92.1 Mammographic calcification found on diagnostic imaging of breast (principal)
CPT/HCPCS: 77065

== ENCOUNTER → 2022-09-02 10:50 | Outpatient (BNVA) | payer MEDICARE, MEDICAID, SELFPAY | PROVIDERS: PCP Internal Medicine; Visit Provider Registered Nurse Diabetes Educator | DX: E11.42 Type 2 diabetes mellitus with diabetic polyneuropathy (principal); Z79.4 Long term (current) use of insulin | CPT/HCPCS: 99211 ==

== ENCOUNTER 2022-09-07 13:48 | Outpatient (AMB) | payer MEDICARE, MEDICAID, SELFPAY ==
--- NOTE | 2022-09-07 13:54 | A.OFFVIS_ITS ---
Intake Vital Signs 09/07/22 13:59 Height 5 ft Weight 143 lb 15.39 oz BMI 28.1 BP 132/60 Blood Pressure Location Lt brachial Position Sitting Pulse 60 Pulse Source Pulse Oximeter Pulse Oximetry (%) 97 Oxygen Delivery Method Room Air Intake Visit Reasons: f/u Type 2 DM Intake Note: Patient present today to follow up on Type 2 Diabetes Mellitus. Patient receives DME supplies through:[facility] Last Diabetic Eye exam: Last Podiatry Visit: June Random Glucose: 128mg/dl HgA1C: 8.5% 06/16/2022 Allergies duloxetine [Cymbalta] Allergy (Unknown, Verified 09/07/22 13:54) Unknown hydroxyzine Allergy (Unknown, Verified 09/07/22 13:54) unknown risperidone Allergy (Unknown, Verified 09/07/22 13:54) Unknown trazodone Allergy (Unknown, Verified 09/07/22 13:54) Unknown quetiapine [From SEROQUEL] Adverse Reaction (Severe, Verified 09/07/22 13:54) Acute Dystonic reaction Medication List - Last Reconciled 09/07/22 by Joe Webster MD acetaminophen (Tylenol Extra Strength) 1,000 mg (2 x 500 mg) PO Q8H PRN 30 days alcohol swabs (Alcohol Pads) pad topical ammonium lactate 12% topical aripiprazole mg PO aripiprazole mg PO aspirin (Adult Aspirin Regimen) 81 mg PO DAILY 30 days blood sugar diagnostic (FreeStyle Lite Strips) Tests 4X/day blood-glucose meter (FreeStyle Lite Meter kit) As directed 2x/day buspirone 10 mg PO TID docusate sodium 200 mg (2 x 100 mg) PO BEDTIME flash glucose scanning reader (FreeStyle Ni 2 [place]) As directed flash glucose sensor (FreeStyle Ni 2 Sensor kit) As directed change every 14 days hydrocortisone 2.5% (Proctozone-HC) MT insulin aspart U-100 (Novolog FlexPen U-100 Insulin aspart) inject 6 units if POC>150 and 10 units if POC>250 subcutaneously 3 times a day; insulin degludec (Tresiba FlexTouch U-200 insulin) 34 units (0.17 mL) subcut DAILY 30 days ketotifen fumarate 0.025%(0.035%) 1 drp ophthalmic (eye) BID lancets (FreeStyle Lancets) lisinopril 10 mg PO DAILY lorazepam 1 tab PO DAILY PRN metformin 500 mg PO BID metoprolol tartrate 1 tab PO BID olanzapine (Zyprexa) 20 mg PO BEDTIME 30 days pantoprazole mg PO pen needle, diabetic (Unifine Pentips) 4x daily repaglinide 2 mg PO TID sennosides (Natural Senna Laxative) 8.6 mg PO BEDTIME sertraline mg PO HPI HPI Comments History of Present Illness Details Patient is a 67 yo female with DM2 who presents for continued management her diabetes. PMH: DM2, dementia, schizoaffective disorder, HTN, HLD, anxiety, Micro and macrovascular complications: + neuropathy, no retinopathy, nephropathy, CVA, CAD, PVD. Current medication regimen: .Patient taking Tresiba 34 units daily NovoLog inject 6 units if POC>150 and 10 units if POC>250 subcutaneously 3 times a day repaglinide 4mg TID prior to meals , , metformin 500mg BID. Intolerant of SGLT-2 due to hyponatremia. In past Trulicity stopped due elevated lipase and question of pancreatitis. Symptoms: denies numbness and tingling in lower extremities, reports pain in legs and uses cream which helps and has socks that were ordered. Hypoglycemia:rare Hyperglycemia: reports polydypsia, reports polyuria, Blood glucose monitoring: Ni download shows she is using the sensor 67% of the time. Average glucose is 267 with variability 32.7%. 17% range with 82% hyperglycemia and 1% hypoglycemia Eye Exam: , no retinopathy. Needs to make appt Aide states patient is taking NovoLog insulin before eating and eating overnight without taking insulin Laboratory Tests 10/01/20 05/01/21 07:03 18:18 Creatinine 1.21 Estimated GFR 45 Triglycerides 132 Cholesterol 147 D LDL Cholesterol, C alc 82 HDL Cholesterol 39 10/01/20 01/28/21 07:03 15:40 Creatinine 1.02 Estimated GFR 54 Triglycerides 132 Cholesterol 147 D LDL Cholesterol, C alc 82 HDL Cholesterol 39 Laboratory Tests 05/01/21 18:18 Hgb 11.9 L PFSH Medical History CAD (coronary artery disease) Chronic kidney disease, stage 3 unspecified Dementia Depression with anxiety Dermatitis Dermatophytosis Diabetes mellitus with hyperglycemia Dyslipidemia Essential hypertension Joint pain PTSD (post-traumatic stress disorder) Schizoaffective disorder Smoking 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 Mother No problems noted. Social History Household Members: None Household Members Other:: has CHD Services Housing: Apartment Do you presently have visiting nurse or other home services: No Alcohol intake: former Patient Tobacco Use Status: Current everyday Tobacco user Tobacco use type: Cigarette Cigarette Packs Per Day: 1 Cigarettes Per Day: 20.0 Second Hand Smoke Exposure: No Advance Directives Date on File: 09/30/20 service: No Sexual orientation: Straight/Heterosexual Physical Exam Vital Signs: Last Vital Signs Pulse 60 09/07/22 13:59 BP 132/60 09/07/22 13:59 Pulse Ox 97 09/07/22 13:59 Oxygen Delivery Method Room Air 09/07/22 13:59 BMI result Body Mass Index 28.1 Absence of Cushingoid features. Absence of acromegalic features. Neck exam reveals nl size thyroid about 15 gms. No thyroid nodules palpable. No carotid bruits present. Lungs CTA. Heart S1 S2, Reg R/R. No M/R/ G. Skin exam reveals absence of vitiligo or acanthosis nigricans. Abdominal exam reveals Soft NT/ND with NA BS. No organomegaly present. Neck Other: . Extrem Other: Visual exam of foot performed. No ulcerations or open lesions. No onchomycosis, no callouses.Pulses 2 + distally Sensation intact to monofilament exam. Vibratory sensation sensed is idecreased with 128 Hz tuning fork Assessment & Plan Assessment & Plan (1) Type 2 diabetes mellitus with chronic kidney disease: Code(s): E11.22 - Type 2 diabetes mellitus with diabetic chronic kidney disease Qualifiers: Diabetes mellitus shelter insulin use: with shelter use Chronic kidney disease stage: stage 3 (moderate) Chronic kidney disease stage 3 subtype: unspecified whether 3a or 3b Qualified Code(s): E11.22 - Type 2 diabetes mellitus with diabetic chronic kidney disease; N18.30 - Chronic kidney disease, stage 3 unspecified; Z79.4 - terminal makeup operator (current) use of insulin Plan: This 67-year-old female with history of type 2 diabetes being treated with metformin Prandin as well as basal-bolus insulin with poor glycemic control and known microvascular complications namely neuropathy and CKD. Her diabetic control is somewhat limited by her dementia and comorbid conditions Plan is to increase the Tresiba to 40 units and Humalog scale to 10 units if point care>150 and 14 unit for POC .250 . Patient and her aide were also told not to eat in till taking the insulin particularly the NovoLog prior. She is also eating overnight and not taking insulin was told to stop eating overnight Coding Level of Care Code Est Pt Level 4 (61943) Diagnoses Type 2 diabetes mellitus with chronic kidney disease E11.22; N18.30; Z79.4 Diabetes mellitus shelter insulin use: with supervisor intermediates use Chronic kidney disease stage: stage 3 (moderate) Chronic kidney disease stage 3 subtype: unspecified whether 3a or 3b
[2022-09-07 13:59] VITALS: BP 132/60; PULSE 60; O2SAT 97; BMI 28.1
[2022-09-07 14:11] LABS: Glucose, Whole Blood 128 mg/dL (60-115)
== END 2022-09-07 14:30 | disposition home or self-care (01) ==
PROVIDERS: PCP Internal Medicine; Referring Provider Internal Medicine; Visit Provider Internal Medicine Endocrinology, Diabetes & Metabolism
DX: E11.22 Type 2 diabetes mellitus with diabetic chronic kidney disease (principal); Z79.4 Long term (current) use of insulin; N18.30 Chronic kidney disease, stage 3 unspecified
CPT/HCPCS: 99214

== ENCOUNTER → 2022-09-07 13:48 | Outpatient (BNVA) | payer MEDICARE, MEDICAID, SELFPAY | PROVIDERS: Visit Provider Internal Medicine Endocrinology, Diabetes & Metabolism | DX: E11.22 Type 2 diabetes mellitus with diabetic chronic kidney disease (principal); N18.30 Chronic kidney disease, stage 3 unspecified; Z79.4 Long term (current) use of insulin | CPT/HCPCS: 82947; 99212 ==

== ENCOUNTER 2022-10-05 13:58 | Outpatient (AMB) | payer MEDICARE, MEDICAID, SELFPAY ==
[2022-10-05 14:05] VITALS: BMI 27.6
--- NOTE | 2022-10-05 14:05 | A.OFFVIS_ITS ---
Intake VS Expanded 10/05/22 14:05 Height 5 ft Weight 141 lb 8.588 oz BMI 27.6 Intake Visit Reasons: dm Allergies duloxetine [Cymbalta] Allergy (Unknown, Verified 09/07/22 13:54) Unknown hydroxyzine Allergy (Unknown, Verified 09/07/22 13:54) unknown risperidone Allergy (Unknown, Verified 09/07/22 13:54) Unknown trazodone Allergy (Unknown, Verified 09/07/22 13:54) Unknown quetiapine [From SEROQUEL] Adverse Reaction (Severe, Verified 09/07/22 13:54) Acute Dystonic reaction HPI Nutrition Presentation Details Pt presents for MNT for T2DM. Pt twas referred by Dr. Webster Typical meal intake B: eggs scrambled with white bread and soda diet L cereal corn with sugar diet, milk 2 % milk D: soup pasta/beef, crackers ,water snack on cereal at night as well as pastries or chips smokin cig per per day ETOH: stopped > 3 ys ago Food frequency Fruits: 0-1 a day Vegetables: Mostly starchy vegetables 3 to 4 times a week. Starchy vegetables once to twice a week Protein foods reports choosing ready protein foods (beef, a eggs, poultry, fish) Dairy: 3 times a day Starches greater than 13 servings a day RHO-Gnlrnpl-Zl.Jeor Equation Height 5 ft Weight 142 lb Resting Metabolic Rate 1110.24 Calculated Activity Level Mild Activity Calories Needed to Maintain Weight 1526.58 Diagnosis Nutrition problem #1 food nutri know defi As related to (etiology) #1 diagnosis As evidenced by (sign/symptom) #1 no prior educ - nutri rec Most Recent Diabetes Results: No Data to Display [facility] Medical History CAD (coronary artery disease) Chronic kidney disease, stage 3 unspecified Dementia Depression with anxiety Dermatitis Dermatophytosis Diabetes mellitus with hyperglycemia Dyslipidemia Essential hypertension Joint pain PTSD (post-traumatic stress disorder) Schizoaffective disorder Smoking 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 Mother No problems noted. Social History Household Members: None Household Members Other:: has CHD Services Housing: Apartment Do you presently have visiting nurse or other home services: No Alcohol intake: former Patient Tobacco Use Status: Current everyday Tobacco user Tobacco use type: Cigarette Cigarette Packs Per Day: 1 Cigarettes Per Day: 20.0 Second Hand Smoke Exposure: No Advance Directives Date on File: 09/30/20 service: No Sexual orientation: Straight/Heterosexual Assessment & Plan Assessment & Plan (1) Diabetes mellitus with hyperglycemia: Code(s): E11.65 - Type 2 diabetes mellitus with hyperglycemia Plan: used wt : 64 kg Est kcal needs as per MSJ: 1500 (40% carb, 30% protein/fat) Est fluid needs as per 25-30 ml/d: 1600 Est prot per day as per 1 g/kg bw: 64 Recommend fiber intake : 8-10 g per day and gradually increase to 25-28 g per day for women and 35-38 g for men or as tolerated Recommend sodium intake per day : less than 1500 mg less than 2000 mg Educated patient on: ( R = reviewed V = verbalizes understanding N/R = needs review N/A = not applicable * Differences between complex carbohydrates a simple carbohydrates, role of fiber in diet: R * Differences between types of fats and role in diet (mono on saturated fat fatty acids, saturated fatty acids, trans fats): R * Food sources of sodium in salt and healthy modifications for heart health in kidney health: R * Vitamins and minerals: R * Healthy plate method concept: R * Physical activity: Benefits a precaution: R * Hypoglycemia protocol (rule of 15): R * Dietary prevention of Hyperglycemia: R Patient Instructions: Make modifications to your bedtime snack: Reducing total carbohydrates to 30 g and including an oz of protein: See list of choices as a reference Coding Level of Care Code Nutr Indiv Intake (71675) Diagnoses Diabetes mellitus with hyperglycemia E11.65 Time Spent (min) 30
[2022-10-11 11:39] VITALS: BMI 27.7
== END 2022-10-05 14:43 | disposition home or self-care (01) ==
PROVIDERS: PCP Internal Medicine; Referring Provider Internal Medicine Endocrinology, Diabetes & Metabolism; Visit Provider Dietitian, Registered
DX: E11.65 Type 2 diabetes mellitus with hyperglycemia (principal)

== ENCOUNTER → 2022-10-05 13:58 | Outpatient (BNVA) | payer MEDICARE, MEDICAID, SELFPAY | PROVIDERS: Visit Provider Dietitian, Registered | DX: E11.65 Type 2 diabetes mellitus with hyperglycemia (principal) | CPT/HCPCS: 97802 ==

== ENCOUNTER 2022-10-14 16:13 | Emergency (ER) | payer MEDICARE, MEDICAID, SELFPAY ==
[2022-10-14] VITALS (7 sets, daily range): BP systolic 136–152; BP diastolic 44–68; PULSE 40–72; RESP 17–18; TEMP 36.7–36.8; O2SAT 94–97; BMI 25.4
--- NOTE | 2022-10-14 | ECG_ITS ---
Test Reason : DIZZINESS Blood Pressure : / mmHG Vent. Rate : 065 BPM Atrial Rate : 065 BPM P-R Int : 154 ms QRS Dur : 130 ms QT Int : 426 ms P-R-T Axes : 071 -60 072 degrees QTc Int : 443 ms Sinus rhythm with Premature atrial complexes Right bundle branch block Left anterior fascicular block Bifascicular block Minimal voltage criteria for LVH, may be normal variant ( R in aVL ) Abnormal ECG When compared with ECG of 07-NOV-2021 20:24, Premature atrial complexes are now Present Referred By: Generic ED Physician Electronically Signed By:SUSAN CROWE
--- NOTE | ~2022-10-14 | CT_ITS ---
EXAMINATION: CT HEAD WITHOUT CONTRAST CT FACIAL BONES WITHOUT CONTRAST CT CERVICAL SPINE WITHOUT CONTRAST CLINICAL INFORMATION: Fall. COMPARISON: CT head and cervical spine from 03/04/2021. CT head from 11/07/2021. TECHNIQUE: Imaging was performed from the skull base to vertex without intravenous administration of contrast. In addition, helical noncontrast CT imaging was acquired through the cervical spine and facial bones and source images were reviewed along with axial reconstructions and sagittal and coronal MPRs. This CT examination was performed using dose optimization techniques as appropriate, variously including the following: *Automated exposure control. *Adjustment of mA and/or kV according to patient size (this includes techniques or standardized protocols for targeted exams where dose is matched to indication/reason for exam; i.e. extremities or head). *Use of iterative reconstruction technique. DLP: 1270 mGy-cm FINDINGS: Head: There is no evidence of acute intracranial hemorrhage or edematous territorial infarction. Aponte-white matter differentiation is preserved. Scattered and partially confluent hypoattenuation in the periventricular and deep white matter are consistent with moderate microangiopathy. Proportional prominence of the ventricles and sulcal spaces without evidence of obstructive hydrocephalus. No abnormal mass effect or midline shift. No extra-axial fluid collections. Calcific atherosclerotic disease of the intracranial internal carotid and vertebral arteries. No hyperdense vessel sign. No acute soft tissue or osseous abnormalities. Maxillofacial Bones: No evidence of maxillofacial bone fractures. The zygomatic arches remain intact. No nasal bone fracture. The nasal septum remains midline. No evidence of mandibular or maxillary fracture. The mandibular condyles remain well-seated in their respective temporal articular grooves. Normal appearance of the intraconal and extraconal fat. No evidence of traumatic injury to the extraocular musculature or globes. Moderate mucosal thickening of the sphenoid sinus. Mild mucosal thickening of the remaining paranasal sinuses. Mild to moderate leftward nasal septal deviation. The mastoid air cells and middle ear cavities are clear. No layering fluid collections. The patient is edentulous. Bilateral lens extractions. Cervical Spine: The atlantooccipital and atlantoaxial articulations remain well aligned. Mild right convex curvature of the cervical spine. Mild reversal the normal cervical lordosis centered on C5-C6. Otherwise, there is anatomic alignment of the vertebral bodies and posterior elements. No evidence of acute fracture or subluxation. The vertebral body heights are maintained. Advanced degenerative disc disease at C5-C6 and C6-C7. Mild to moderate degenerative disc disease at all additional cervical levels. Facet and uncovertebral joint arthropathy leads to osseous encroachment on the neural foramina at C4-C7. There is no prevertebral soft tissue swelling. The thyroid gland and remaining cervical soft tissues are within normal limits. The lung apices demonstrate no abnormalities. CT/CT cervical spine wo IV con IMPRESSION: 1. No evidence of acute intracranial hemorrhage or edematous territorial infarction. Moderate underlying microangiopathy and generalized cerebral volume loss. 2. No evidence of acute fracture or traumatic subluxation of the cervical spine. Moderate multilevel degenerative spondyloarthropathy of the cervical spine. 3. No evidence of acute fracture of the maxillofacial bones.
--- NOTE | ~2022-10-14 | XR_ITS ---
EXAMINATION: XR CHEST CLINICAL INFORMATION: Dizziness COMPARISON: CT chest 11/07/2021 TECHNIQUE: Frontal view of the chest was obtained. FINDINGS: The lungs are well-expanded with patchy haziness in the right lung base question developing infiltrate versus atelectasis. Rest of lungs are clear. Heart size and pulmonary vascularity is normal. No gross bony abnormality seen. XR/XR chest 1V IMPRESSION: Mild haziness right lower lobe question developing infiltrate versus atelectasis.
[2022-10-14 16:25] LABS: Glucose, Whole Blood 127 mg/dL (60-115)
--- NOTE | 2022-10-14 16:33 | PC.NURSE ---
pt a&ox3. respirations even and unlabored. pt reports falling at home 2 weeks ago and hitting her head on the ground. pt reports no loc. pt reports not being seen after the fall. pt was going to [facility] today to be seen with her ADVERTISING COLUMNIST and they stated there was no doctor available to see the pt, ems was called. pt reports a constant headache and dizziness since the fall. pt reports when she is dizzy it feels like the room is spinning. [facility] assessment in [facility], [place].
[2022-10-14 17:25] LABS: Basophils Absolute Auto 0.1 X10*3/uL (0.0-0.2); Basophils Percent Auto 0.5 % (0-2); Eosinophils Absolute Auto 0.3 X10*3/uL (0.0-0.4); Eosinophils Percent Auto 2.1 % (0-4); Hematocrit 38.5 % (37.0-47.0); Hemoglobin 12.8 g/dl (12.0-16.0); Imm Gran Abs Auto 0.03 X10*3/uL (0.00-0.03); Imm Gran Pct Auto 0.2 % (0.0-0.4); Lymphocytes Absolute Auto 5.6 X10*3/uL (1.2-4.9); Lymphocytes Percent Auto 38.1 % (20-40); MANUAL DIFF FLAG SCAN; Mean Corpuscular HGB Conc 33.2 g/dl (31.0-35.0); Mean Corpuscular Hemoglobin 27.2 pg (27.0-33.0); Mean Corpuscular Volume 81.9 fL (80.0-98.0); Mean Platelet Volume 11.8 fL (9.4-12.3); Monocytes Absolute Auto 1.3 X10*3/uL (0.1-1.2); Monocytes Percent Auto 8.9 % (2-11); Neutrophils Absolute Auto 7.3 x10*3/uL (2.0-8.3); Neutrophils Percent Auto 50.2 % (45-73); Platelet Count 204 X10*3/uL (160-400); SCAN SMEAR FLAG 1; White Blood Count 14.6 X10*3/uL (4.8-10.8)
[2022-10-14 17:28] LABS: Appearance Urine Clear; Color Urine Yellow; Glucose Urine UA Negative (Negative); Leukocyte Esterase Urine Negative (Negative); Nitrite Urine Negative (Negative); Specific Gravity - Urine <= 1.005 (1.005-1.025); Urine Blood Negative (Negative); Urine Ketones Negative (Negative); Urine Protein Negative (Neg-Trace)
[2022-10-14 17:40] LABS: Alanine Aminotransferase 15 U/L (0-31); Albumin Level 4.1 g/dL (3.5-5.0); Alkaline Phosphatase 86 U/L (39-117); Anion Gap 13 (12-20); Aspartate Amino Transferase 15 U/L (5-31); Bilirubin Total 0.2 mg/dL (0.0-1.0); Blood Urea Nitrogen 14 mg/dL (9-16); Calcium 10.4 mg/dL (8.4-10.2); Carbon Dioxide 27 mmol/L (22-29); Chloride 101 mmol/L (96-108); Creatinine Clr Calc Pharmacy 57.7; Estimated Glomerular Filt Rate > 60; Glucose Random 94 mg/dL (60-115); Potassium 4.3 mmol/L (3.3-5.1); Sodium 137 mmol/L (135-145); Total Protein 7.7 g/dL (6.5-8.0)
[2022-10-14 17:48] LABS: Troponin-I High Sensitivity 5.6 ng/L (<3.5-17.0)
[2022-10-14 18:05] LABS: SLIDE REVIEW VERIFIED
[2022-10-14] MEDS: Butalb/Acetamin/Caff 50/325/40 TABLET 1 TAB PO (18:44)
--- NOTE | 2022-10-14 18:48 | ED_ITS ---
HPI - General Adult General Chief complaint: Dizziness Stated complaint: HEADACHE DIZZINESS Time Seen by Provider: 10/14/22 18:11 Source: patient, family (Son acting as parts interpreter), RN notes reviewed and old records reviewed Limitations: language barrier (Patient declines hospital interpreting services) History of Present Illness HPI narrative: 67-year-old female with past medical history significant for diabetes, chronic kidney disease presents for evaluation of left-sided headache. Patient reports that she has ?bad balance at baseline. ? She states that last week she was trying to throw something away and fell over injuring her left side She complains of left-sided headache and intermittent dizziness ever since She describes as ?the room is spinning. ? She denies any known history of vertigo She also complains of ?mouth pain. ? She is able to open and close her mouth Denies any other injuries Related Data Home Medications Medication Instructions Recorded Confirmed ketotifen fumarate 0.025 % (0.035 1 drp ophthalmic (eye) BID 06/03/21 11/07/21 %) eye drops lorazepam 0.5 mg tablet 1 tab PO DAILY PRN Anxiety 11/07/21 11/07/21 metoprolol tartrate 25 mg tablet 1 tab PO BID 11/07/21 11/07/21 pantoprazole 40 mg tablet,delayed mg PO 05/19/22 release alcohol swabs (Alcohol Pads) pad topical 06/16/22 ammonium lactate 12 % lotion topical 06/16/22 aripiprazole 5 mg tablet mg PO 06/16/22 hydrocortisone 2.5 % topical cream IN 06/16/22 with perineal applicator (Proctozone-HC) sertraline 100 mg tablet mg PO 06/16/22 aripiprazole 20 mg tablet mg PO 09/07/22 buspirone 10 mg tablet 10 mg PO TID 09/07/22 Previous Rx's Medication Instructions Recorded acetaminophen 500 mg tablet 1,000 mg PO Q8H PRN Pain 30 days 10/09/20 (Tylenol Extra Strength) #120 tabs aspirin 81 mg tablet,delayed 81 mg PO DAILY 30 days #30 tabs 10/09/20 release (Adult Aspirin Regimen) lancets 28 gauge (FreeStyle #100 ea 10/09/20 Lancets) olanzapine 20 mg tablet (Zyprexa) 20 mg PO BEDTIME 30 days #30 tabs 10/09/20 blood sugar diagnostic (FreeStyle #100 ea 01/05/22 Lite Strips) blood-glucose meter (FreeStyle #1 ea 01/05/22 Lite Meter kit) metformin 500 mg tablet 500 mg PO BID #60 tabs 01/05/22 pen needle, diabetic 32 gauge x #100 ea 01/05/2232 (Unifine Pentips) insulin degludec 200 unit/mL (3 34 unit (0.17 mL) subcut DAILY 30 01/06/22 mL) subcutaneous pen (Tresiba days #9 mL FlexTouch U-200 insulin) lisinopril 10 mg tablet 10 mg PO DAILY #30 tabs 05/06/22 docusate sodium 100 mg capsule 200 mg PO BEDTIME #180 caps 05/19/22 sennosides 8.6 mg tablet (Natural 8.6 mg PO BEDTIME constipation #90 05/19/22 Senna Laxative) tabs flash glucose scanning reader #1 ea 06/16/22 (FreeStyle Ni 2 [place]) flash glucose sensor (FreeStyle #2 ea 06/16/22 Ni 2 Sensor kit) insulin aspart U-100 100 unit/mL See Rx Instructions subcut TID #15 06/16/22 (3 mL) subcutaneous pen (Novolog mL FlexPen U-100 Insulin aspart) repaglinide 2 mg tablet 2 mg PO TID #90 tabs 10/11/22 [id number] 1 cap PO Q4-6H PRN headache #14 10/14/22 50 mg-300 mg-40 mg capsule caps (Fioricet) Allergies Allergy/AdvReac Type Severity Reaction Status Date / Time duloxetine [Cymbalta] Allergy Unknown Unknown Verified 09/07/22 13:54 hydroxyzine Allergy Unknown unknown Verified 09/07/22 13:54 risperidone Allergy Unknown Unknown Verified 09/07/22 13:54 trazodone Allergy Unknown Unknown Verified 09/07/22 13:54 quetiapine [From SEROQUEL] AdvReac Severe Acute Verified 09/07/22 13:54 Dystonic reaction Review of Systems Constitutional: Constitutional: Denies body ache(s), Denies fever(s), Reports frequent falls and Reports headache(s) Eyes: Eyes: Denies blurry vision, Denies change in vision and Denies other visual disturbances ENT: Reports dizziness and Reports headache(s) Cardiovascular: Cardiovascular: Denies chest pain, Denies syncope, Denies rapid heart rate and Denies dyspnea Respiratory: Respiratory: Denies cough and Denies dyspnea Gastrointestinal: Gastrointestinal: Denies abdominal pain, Denies nausea and Denies vomiting Musculoskeletal: Musculoskeletal: Denies back pain Integumentary/Breasts: Skin/Breast: Denies rash Neurologic: Reports dizziness, Denies syncope, Reports frequent falls and Reports headache(s) [facility] Past Medical History Medical History CAD (coronary artery disease) Chronic kidney disease, stage 3 unspecified Dementia Depression with anxiety Dermatitis Dermatophytosis Diabetes mellitus with hyperglycemia Dyslipidemia Essential hypertension Joint pain PTSD (post-traumatic stress disorder) Schizoaffective disorder Smoking 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 Mother No problems noted. Social History Social History Household Members: None Household Members Other:: has [facility] Services Housing: Apartment Do you presently have visiting nurse or other home services: No Alcohol intake: former Patient Tobacco Use Status: Current everyday Tobacco user Tobacco use type: Cigarette Cigarette Packs Per Day: 1 Cigarettes Per Day: 20.0 Smoked in Last 30 Days: Yes Second Hand Smoke Exposure: No Use of substances other than those prescribed or required for medical reasons: No Advance Directives: Yes Advance Directives Information Provided: No Advance Directives on File: No Advance Directives Date on File: 09/30/20 service: No Sexual orientation: Straight/Heterosexual Physical Exam ED Vital Signs: Vital Signs - 24 hr 10/14/22 16:22 10/14/22 16:31 10/14/22 17:20 Temperature 98.0 F Pulse Rate 68 72 40 L Respiratory Rate Blood Pressure 136/56 L 145/44 H Pulse Oximetry 97 Oxygen Delivery Method Room Air 10/14/22 17:22 10/14/22 17:24 10/14/22 19:28 Temperature Pulse Rate 42 L 42 L Respiratory Rate 18 Blood Pressure 143/50 H 139/58 L Pulse Oximetry Oxygen Delivery Method 10/14/22 20:02 Temperature 98.3 F Pulse Rate 62 Respiratory Rate 17 Blood Pressure 152/62 H Pulse Oximetry 96 Oxygen Delivery Method Room Air BMI result Body Mass Index 25.4 Const General: healthy appearing, comfortable, no acute distress, alert and awake Nutritional Appearance: well nourished Orientation/consciousness: patient oriented x3 HENMT Other: The patient is tender in the left parietal region. However there are no overlying ecchymosis, abrasions, wounds Head: Yes normocephalic and Yes atraumatic Teeth and gingiva: abnormal dentition (Patient is missing all of her lower teeth, upper dentures in place) Throat: Yes posterior oropharynx normal Eyes Eyelids: Yes eyelids normal Conjunctivae: conjunctivae normal Sclerae: sclerae normal Corneas: corneas normal Pupils: Equal, round and reactive pupils present EOM: EOMs intact bilaterally Neck Neck: Yes full ROM Resp Effort & Inspection: normal respiratory effort, able to speak in complete sentences, no audible wheezes and not labored Auscultation: clear to auscultation bilaterally Cardio Rate: regular rate Rhythm: regular rhythm GI Inspection: No distended Palpation (GI): Soft to palpation, not firm, nontender, no guarding and not rigid Skin General skin exam: no rashes or lesions noted and elasticity normal Neuro General: patient oriented x3 Cranial nerves: Yes CN's II-XII intact bilaterally, Yes Equal, round and reactive pupils present and Yes Bilaterally intact EOM present Cognition (Neuro): normal cognition Extrem Other: Moving all extremities well without any obvious deformities Course Reevaluation(s) Reevaluation #1: Patient reports feeling better after Fioricet and meclizine. She is stable for discharge. CT scan discussed with her showing no evidence of traumatic injuries Time: 20:16 Medications Administered Discontinued Medications Generic Name Dose Route Start Last Admin Trade Name Freq PRN Reason Stop Dose Admin Acetaminophen/Butalbital/Caffeine 1 tab 10/14/22 18:38 10/14/22 18:44 Butalb/Acetamin/Caff 50/325/40 Tablet PO 10/14/22 18:39 1 tab ONCE ONE Administration Meclizine HCl 25 mg 10/14/22 18:49 10/14/22 19:13 Meclizine Hcl 25 Mg Tablet PO 10/14/22 18:50 25 mg ONCE ONE Administration Medical Decision Making Medical Decision Making [facility] Narrative: 67-year-old female presents for evaluation of dizziness after a fall 1 week ago. She does have a leukocytosis of 14.6 which is pretty consistent with previous labs. Chest x-ray shows concern for possible developing infiltrate. She does admit to a chronic cough related to smoking. Chemistries are reassuring. Her calcium is just above normal at 10.4. Otherwise no significant electrolyte abnormalities. Will get CT scan the brain, facial bones and cervical spine given the patient's fall last week. She does have a walker that she uses at home Differential Diagnosis Differential Diagnoses: The differential diagnosis associated with the presentation includes Mechanical fall Acute headache Contusion Intracranial hemorrhage Calvarial fracture Cervical fracture Mandible fracture Vertigo Pneumonia Lab Data [facility] Lab Attestation statement: I reviewed the patient's lab results. Chronic leukocytosis with a white count of 14.6. No left shift. No significant anemia with a hemoglobin 12.8 and hematocrit 38.5. Chemistries are remarkable only for a calcium of 10.4 that is just above normal 10/14/22 17:18 10/14/22 17:18 Labs: Lab Results 10/14/22 10/14/22 10/14/22 Range/Units 16:21 17:18 17:18 WBC 14.6 H (4.8-10.8) X10*3/uL RBC 4.70 (4.20-5.50) X10*6/uL Hgb 12.8 (12.0-16.0) g/dl Hct 38.5 (37.0-47.0) % MCV 81.9 (80.0-98.0) fL MCH 27.2 (27.0-33.0) pg MCHC 33.2 (31.0-35.0) g/dl RDW 14.0 (11.0-16.0) % Plt Count 204 (160-400) X10*3/uL MPV 11.8 (9.4-12.3) fL Immature Gran % (Auto) 0.2 (0.0-0.4) % Neut % (Auto) 50.2 (45-73) % Lymph % (Auto) 38.1 (20-40) % [place] % (Auto) 8.9 (2-11) % Eos % (Auto) 2.1 (0-4) % Baso % (Auto) 0.5 (0-2) % Lymph # (Auto) 5.6 H (1.2-4.9) X10*3/uL [place] # (Auto) 1.3 H (0.1-1.2) X10*3/uL Eos # (Auto) 0.3 (0.0-0.4) X10*3/uL Baso # (Auto) 0.1 (0.0-0.2) X10*3/uL Abs Immat Gran (auto) 0.03 (0.00-0.03) X10*3/uL Absolute Neuts (auto) 7.3 (2.0-8.3) x10*3/uL Absolute Nucleated RBC 0.000 (0.0-0.012) X10*3/uL Nucleated RBC % (auto) 0.0 (0.0-0.2) /100WBC Smear Tech's Comments VERIFIED Sodium 137 (135-145) mmol/L Potassium 4.3 (3.3-5.1) mmol/L Chloride 101 (96-108) mmol/L Carbon Dioxide 27 (22-29) mmol/L Anion Gap 13 (12-20) BUN 14 (9-16) mg/dL Creatinine 0.77 (0.5-1.4) mg/dL Estim Creat Clear Calc 57.7 Estimated GFR > 60 POC Glucose 127 H (60-115) mg/dL Random Glucose 94 (60-115) mg/dL Calcium 10.4 H D (8.4-10.2) mg/dL Total Bilirubin 0.2 (0.0-1.0) mg/dL AST 15 (5-31) U/L ALT 15 (0-31) U/L Alkaline Phosphatase 86 (39-117) U/L Troponin I High Sens (<3.5-17.0) ng/L Total Protein 7.7 (6.5-8.0) g/dL Albumin 4.1 (3.5-5.0) g/dL Urine Color Urine Appearance Urine pH (5.0-9.0) Ur Specific [place] (1.005-1.025) Urine Protein (Neg-Trace) mg/dL Urine Glucose (UA) (Negative) mg/dL Urine Ketones (Negative) mg/dL Urine Blood (Negative) Urine Nitrite (Negative) Ur Leukocyte Esterase (Negative) 10/14/22 10/14/22 Range/Units 17:18 17:18 WBC (4.8-10.8) X10*3/uL RBC (4.20-5.50) X10*6/uL Hgb (12.0-16.0) g/dl Hct (37.0-47.0) % MCV (80.0-98.0) fL MCH (27.0-33.0) pg MCHC (31.0-35.0) g/dl RDW (11.0-16.0) % Plt Count (160-400) X10*3/uL MPV (9.4-12.3) fL Immature Gran % (Auto) (0.0-0.4) % Neut % (Auto) (45-73) % Lymph % (Auto) (20-40) % [place] % (Auto) (2-11) % Eos % (Auto) (0-4) % Baso % (Auto) (0-2) % Lymph # (Auto) (1.2-4.9) X10*3/uL [place] # (Auto) (0.1-1.2) X10*3/uL Eos # (Auto) (0.0-0.4) X10*3/uL Baso # (Auto) (0.0-0.2) X10*3/uL Abs Immat Gran (auto) (0.00-0.03) X10*3/uL Absolute Neuts (auto) (2.0-8.3) x10*3/uL Absolute Nucleated RBC (0.0-0.012) X10*3/uL Nucleated RBC % (auto) (0.0-0.2) /100WBC Smear Tech's Comments Sodium (135-145) mmol/L Potassium (3.3-5.1) mmol/L Chloride (96-108) mmol/L Carbon Dioxide (22-29) mmol/L Anion Gap (12-20) BUN (9-16) mg/dL Creatinine (0.5-1.4) mg/dL Estim Creat Clear Calc Estimated GFR POC Glucose (60-115) mg/dL Random Glucose (60-115) mg/dL Calcium (8.4-10.2) mg/dL Total Bilirubin (0.0-1.0) mg/dL AST (5-31) U/L ALT (0-31) U/L Alkaline Phosphatase (39-117) U/L Troponin I High Sens 5.6 (<3.5-17.0) ng/L Total Protein (6.5-8.0) g/dL Albumin (3.5-5.0) g/dL Urine Color Yellow Urine Appearance Clear Urine pH 6.0 (5.0-9.0) Ur Specific [place] <= 1.005 (1.005-1.025) Urine Protein Negative (Neg-Trace) mg/dL Urine Glucose (UA) Negative (Negative) mg/dL Urine Ketones Negative (Negative) mg/dL Urine Blood Negative (Negative) Urine Nitrite Negative (Negative) Ur Leukocyte Esterase Negative (Negative) Independent Interpretation I performed an independent interpretation of an: Plain X-Ray (Right lower lobe infiltrate) Radiology Impression Discussion of test interpretation with radiology: I have reviewed the radiologist's reading. Radiologist Impression: Mild right lower lobe haziness concerning for developing infiltrate versus atelectasis Discharge Plan Discharge Clinical Impression: Acute headache Patient Disposition: Home, Self-Care Instructions: Acute Headache (ED) Additional Instructions: Your CT scan does not show any evidence of traumatic injury to your head, cervical spine or face. Use Fioricet as needed for any further headaches Stay well-hydrated Follow-up with your primary doctor Prescriptions: New [id number] [Fioricet] 50-300-40 mg capsule 1 cap PO Q4-6H PRN (Reason: headache) Qty: 14 0RF No Action (DME) FreeStyle Lite Strips Strip See Rx Instructions .Route Qty: 100 5RF Rx Instructions: Tests 4X/day (DME) blood-glucose meter [FreeStyle Lite Meter] Kit See Rx Instructions .ROUTE .MEDSUPPLY Qty: 1 0RF Rx Instructions: As directed 2x/day metformin 500 mg tablet 500 mg PO BID Qty: 60 1RF (DME) pen needle, diabetic [Unifine Pentips] 32 gauge x 5/32 needle 1 ea miscellaneous TID Qty: 100 1RF Rx Instructions: 4x daily Tresiba FlexTouch U-200 200 unit/mL (3 mL) insulin pen 34 unit subcut DAILY 30 Days Qty: 9 6RF lisinopril 10 mg tablet 10 mg PO DAILY Qty: 30 6RF repaglinide 2 mg tablet 2 mg PO TID Qty: 90 5RF olanzapine [Zyprexa] 20 mg tablet 20 mg PO BEDTIME 30 Days Qty: 30 0RF aspirin [Adult Aspirin Regimen] 81 mg tablet,delayed release (DR/EC) 81 mg PO DAILY 30 Days Qty: 30 11RF acetaminophen [Tylenol Extra Strength] 500 mg Tablet 1,000 mg PO Q8H PRN (Reason: Pain) 30 Days Qty: 120 0RF (DME) lancets [FreeStyle Lancets] 28 gauge misc 1 gauge topical TID Qty: 100 11RF lorazepam 0.5 mg tablet 1 tab PO DAILY PRN (Reason: Anxiety) metoprolol tartrate 25 mg tablet 1 tab PO BID ketotifen fumarate 0.025 % (0.035 %) drops 1 drp ophthalmic (eye) BID Rx Instructions: administer at least 8 hours apart sertraline 100 mg tablet PO aripiprazole 5 mg tablet PO alcohol swabs [Alcohol Pads] Pads, Medicated topical hydrocortisone [Proctozone-HC] 2.5 % cream with perineal applicator IN ammonium lactate 12 % lotion topical insulin aspart U-100 [Novolog FlexPen U-100 Insulin] 100 unit/mL (3 mL) insulin pen See Rx Instructions subcut TID Qty: 15 6RF Rx Instructions: inject 6 units if POC>150 and 10 units if POC>250 subcutaneously 3 times a day; (DME) FreeStyle Ni 2 [place] Misc See Rx Instructions .Route Qty: 1 0RF Rx Instructions: As directed (DME) FreeStyle Ni 2 Sensor Kit See Rx Instructions .Route Qty: 2 5RF Rx Instructions: As directed change every 14 days pantoprazole 40 mg tablet,delayed release (DR/EC) PO docusate sodium 100 mg capsule 200 mg PO BEDTIME Qty: 180 3RF sennosides [Natural Senna Laxative] 8.6 mg tablet 8.6 mg PO BEDTIME Qty: 90 3RF aripiprazole 20 mg tablet PO buspirone 10 mg tablet 10 mg PO TID
[2022-10-14] MEDS: Meclizine HCl 25 MG TABLET PO (19:13)
== END 2022-10-14 20:55 | disposition home or self-care (01) ==
PROVIDERS: Emergency Provider Emergency Medicine
DX: R51.9 Headache, unspecified (principal); E11.22 Type 2 diabetes mellitus with diabetic chronic kidney disease; I12.9 Hypertensive chronic kidney disease with stage 1 through stage 4 chronic kidney disease, or unspecified chronic kidney disease; N18.30 Chronic kidney disease, stage 3 unspecified; E78.5 Hyperlipidemia, unspecified; F17.210 Nicotine dependence, cigarettes, uncomplicated; Z79.82 Long term (current) use of aspirin; Z79.4 Long term (current) use of insulin; Z79.899 Other long term (current) drug therapy
CPT/HCPCS: 36415; 70450; 70486; 71045; 72125; 80053; 81003; 82947; 84484; 85025; 93005; 99284; 99285

== ENCOUNTER 2022-10-19 12:21 | Outpatient (AMB) | payer MEDICARE, MEDICAID, SELFPAY ==
--- NOTE | 2022-10-19 13:16 | MHC.AMDMED ---
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 Required: No Accompanied by: Self / Same As Patient Allergies duloxetine [Cymbalta] Allergy (Unknown, Verified 09/07/22 13:54) Unknown hydroxyzine Allergy (Unknown, Verified 09/07/22 13:54) unknown risperidone Allergy (Unknown, Verified 09/07/22 13:54) Unknown trazodone Allergy (Unknown, Verified 09/07/22 13:54) Unknown quetiapine [From SEROQUEL] Adverse Reaction (Severe, Verified 09/07/22 13:54) Acute Dystonic reaction HPI Comprehensive Diabetes Asmnt Most Recent Diabetes Results: Creatinine 0.77 mg/dL (0.5-1.4) 10/14/22 Blood Urea Nitrogen 14 mg/dL (9-16) 10/14/22 Sodium 137 mmol/L (135-145) 10/14/22 Potassium 4.3 mmol/L (3.3-5.1) 10/14/22 Chloride 101 mmol/L (96-108) 10/14/22 Carbon Dioxide 27 mmol/L (22-29) 10/14/22 Calcium 10.4 mg/dL (8.4-10.2) H 10/14/22 AST 15 U/L (5-31) 10/14/22 ALT 15 U/L (0-31) 10/14/22 Total Protein 7.7 g/dL (6.5-8.0) 10/14/22 Albumin 4.1 g/dL (3.5-5.0) 10/14/22 [facility] Medical History CAD (coronary artery disease) Chronic kidney disease, stage 3 unspecified Dementia Depression with anxiety Dermatitis Dermatophytosis Diabetes mellitus with hyperglycemia Dyslipidemia Essential hypertension Joint pain PTSD (post-traumatic stress disorder) Schizoaffective disorder Smoking 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 Mother No problems noted. Social History Household Members: None Household Members Other:: has [facility] Services Housing: Apartment Do you presently have visiting nurse or other home services: No Alcohol intake: former Patient Tobacco Use Status: Current everyday Tobacco user Tobacco use type: Cigarette Cigarette Packs Per Day: 1 Cigarettes Per Day: 20.0 Second Hand Smoke Exposure: No Advance Directives Date on File: 09/30/20 service: No Sexual orientation: Straight/Heterosexual Assessment & Plan Assessment & Plan (1) Type 2 diabetes mellitus with chronic kidney disease: Code(s): E11.22 - Type 2 diabetes mellitus with diabetic chronic kidney disease Qualifiers: Diabetes mellitus penitentiary insulin use: with penitentiary use Chronic kidney disease stage: stage 3 (moderate) Chronic kidney disease stage 3 subtype: unspecified whether 3a or 3b Qualified Code(s): E11.22 - Type 2 diabetes mellitus with diabetic chronic kidney disease; N18.30 - Chronic kidney disease, stage 3 unspecified; Z79.4 - marine oil terminal superintendent (current) use of insulin Plan: Learning objectives: The patient was provided with verbal and written education on the following topics as outlined below. Assess patient education level/literacy/barriers Patient questions/concerns, patient did not bring Ni reader to visit today. Explained to patient and employment case manager is difficult to assess glucose patterns without any glucose information. Patient continues to eat high carb snack at approximately 04:00 when she wakes up. She is resistant to changing this pattern. Discussed with employment case manager different strategies to help with better glucose control. Including having [facility] leave insulin pen set up and no for patient to take before eating director of early childhood snack. In addition we also discussed switching cereal and milk for lower carb options. Reviewed with patient the importance of better glucose control to reduce risk of diabetes complications The patient met all learning objectives and was able to verbalize understanding and provide teach back of education topics discussed . The patient was provided with the opportunity to ask questions and all questions were answered. Topics covered in today?s session included: Medications (If applicable) ? Name of medication? Dosing/administration instructions? Mechanism of action? Potential side effects? Potential adverse reaction and appropriate treatment? Review onset, peak, duration Assess for concerns re: insurance coverage, cost, barriers to compliance Insulin/Injectables (If applicable) ? Storage/care of insulin? Injection sites? Site rotation? Onset, peak, duration ? Drawing up insulin? Injecting insulin/other injectables? Sharps disposal Continuous blood glucose monitoring (if applicable) Hypoglycemia and Hyperglycemia ? Signs and symptoms? Causes? Treatment? Preventing hypoglycemia? When to seek medical attention ?Blood glucose targets and how you feel when your blood glucose is in and out of your target ranges. ?Monitoring and knowing your A1C. ?What can make blood glucose go up and down and preventing high and low blood glucose. ?Review of blood sugar targets in expected goal range and outside of expected goal range. ?Problem solving and preventing hyper/hypoglycemia. ?Sick day management of diabetes. ?Using blood sugar results in decision making process in managing diabetes. ?Patient was receptive to information provided and participated in the discussion. Asked?appropriate questions and demonstrated good understanding of the topics discussed.? ? Educational Materials: The patient was provided with the following written educational materials: Target Goal, Hypoglycemia treatment handout in Nigerien Smart Goal Assessment:? Patient will bring meter to today's visit Pt met goal less than 25% New Smart Goal: Continue with smart goal above Patient Response to instructions: Comprehension of Instructions: Readiness to make changes:? How confident they feel about making changes: Patient Instructions: Patient will follow-up with clinical nurse educator in 1 month Coding Level of Care Code Est Pt Level 1 (16841) Diagnoses Type 2 diabetes mellitus with chronic kidney disease E11.22; N18.30; Z79.4 Diabetes mellitus penitentiary insulin use: with marine oil terminal superintendent use Chronic kidney disease stage: stage 3 (moderate) Chronic kidney disease stage 3 subtype: unspecified whether 3a or 3b
== END 2022-10-19 13:20 | disposition home or self-care (01) ==
PROVIDERS: PCP Internal Medicine; Visit Provider Registered Nurse Diabetes Educator
DX: E11.22 Type 2 diabetes mellitus with diabetic chronic kidney disease (principal); N18.30 Chronic kidney disease, stage 3 unspecified; Z79.4 Long term (current) use of insulin

== ENCOUNTER → 2022-10-19 12:21 | Outpatient (BNVA) | payer MEDICARE, MEDICAID, SELFPAY | PROVIDERS: PCP Internal Medicine; Visit Provider Registered Nurse Diabetes Educator | DX: E11.22 Type 2 diabetes mellitus with diabetic chronic kidney disease (principal); N18.30 Chronic kidney disease, stage 3 unspecified; Z79.4 Long term (current) use of insulin | CPT/HCPCS: 99211 ==

== ENCOUNTER 2022-11-16 12:51 | Outpatient (AMB) | payer MEDICARE, MEDICAID, SELFPAY ==
--- NOTE | 2022-11-16 13:43 | A.OFFVIS_ITS ---
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 Tanker Driver Required: Yes Hazmat Tanker Driver Language: Bag Sealer Name: Daylin Dale's casey saw operator Accompanied by: Other Relationship Allergies duloxetine [Cymbalta] Allergy (Unknown, Verified 09/07/22 13:54) Unknown hydroxyzine Allergy (Unknown, Verified 09/07/22 13:54) unknown risperidone Allergy (Unknown, Verified 09/07/22 13:54) Unknown trazodone Allergy (Unknown, Verified 09/07/22 13:54) Unknown quetiapine [From SEROQUEL] Adverse Reaction (Severe, Verified 09/07/22 13:54) Acute Dystonic reaction HPI Comprehensive Diabetes Asmnt Most Recent Diabetes Results: Creatinine 0.77 mg/dL (0.5-1.4) 10/14/22 Blood Urea Nitrogen 14 mg/dL (9-16) 10/14/22 Sodium 137 mmol/L (135-145) 10/14/22 Potassium 4.3 mmol/L (3.3-5.1) 10/14/22 Chloride 101 mmol/L (96-108) 10/14/22 Carbon Dioxide 27 mmol/L (22-29) 10/14/22 Calcium 10.4 mg/dL (8.4-10.2) H 10/14/22 AST 15 U/L (5-31) 10/14/22 ALT 15 U/L (0-31) 10/14/22 Total Protein 7.7 g/dL (6.5-8.0) 10/14/22 Albumin 4.1 g/dL (3.5-5.0) 10/14/22 [facility] Medical History CAD (coronary artery disease) Chronic kidney disease, stage 3 unspecified Dementia Depression with anxiety Dermatitis Dermatophytosis Diabetes mellitus with hyperglycemia Dyslipidemia Essential hypertension Joint pain PTSD (post-traumatic stress disorder) Schizoaffective disorder Smoking 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 Mother No problems noted. Social History Household Members: None Household Members Other:: has [facility] Services Housing: Apartment Do you presently have visiting nurse or other home services: No Alcohol intake: former Patient Tobacco Use Status: Current everyday Tobacco user Tobacco use type: Cigarette Cigarette Packs Per Day: 1 Cigarettes Per Day: 20.0 Second Hand Smoke Exposure: No Advance Directives Date on File: 09/30/20 service: No Sexual orientation: Straight/Heterosexual Assessment & Plan Assessment & Plan (1) Type 2 diabetes mellitus with diabetic polyneuropathy: Code(s): E11.42 - Type 2 diabetes mellitus with diabetic polyneuropathy Qualifiers: Diabetes mellitus long distance billing operator insulin use: with long distance billing operator use Qualified Code(s): E11.42 - Type 2 diabetes mellitus with diabetic polyneuropathy; Z79.4 - shelter (current) use of insulin Plan: Personal Continuous Glucose Monitor: Smart goal Assessment: Patient did bring meter to today's visit Patients CGM information reviewed Reviewed patient's sensor data: Hypoglycemia: ? 16% Hyperglycemia:? 24% Time in Range:? 60% Average glucose for the last 2 weeks?137 mg/dL patient has 61% sensor usage Patient's percentage of hypoglycemia is too high, patient appears to be having postprandial hyperglycemia, however, when [facility] administers NovoLog dose many times it is after patient has eaten. This leads to hypoglycemia, sometimes prolonged. Reviewed with patient how to treat hypoglycemia with rule of 15s. Patient given handout on how to treat hypoglycemia in Japanese Message sent to Dr. Webster to make adjustments to patient's insulin plan to reduce time spending in hypoglycemia Insulin plan faxed to the [facility] attention: Daylin Luong Reviewed how to interpret trend arrows Reminded patient that to check finger sticks if symptoms do not match sensor reading. Discussed lag time between finger stick and sensor data.? Patient able to insert sensor independently at home without issue.? Plan Patient will follow-up with paraeducator in 1 month Coding Level of Care Code Est Pt Level 1 (10123) Diagnoses Type 2 diabetes mellitus with diabetic polyneuropathy, with long-term current use of insulin E11.42; Z79.4 Diabetes mellitus half-way insulin use: with half-way use
== END 2022-11-16 13:58 | disposition home or self-care (01) ==
PROVIDERS: PCP Internal Medicine; Visit Provider Registered Nurse Diabetes Educator
DX: E11.42 Type 2 diabetes mellitus with diabetic polyneuropathy (principal); Z79.4 Long term (current) use of insulin

== ENCOUNTER → 2022-11-16 12:51 | Outpatient (BNVA) | payer MEDICARE, MEDICAID, SELFPAY | PROVIDERS: PCP Internal Medicine; Visit Provider Registered Nurse Diabetes Educator | DX: E11.42 Type 2 diabetes mellitus with diabetic polyneuropathy (principal); Z79.4 Long term (current) use of insulin | CPT/HCPCS: 99211 ==

== ENCOUNTER 2022-11-29 12:52 | Outpatient (AMB) | payer MEDICARE, MEDICAID, SELFPAY ==
[2022-11-29 13:16] VITALS: BMI 28.0
--- NOTE | 2022-11-29 13:16 | A.OFFVIS_ITS ---
Intake VS Expanded 11/29/22 13:16 Height 5 ft Weight 143 lb 4.807 oz BMI 28.0 Intake Visit Reasons: DM Allergies duloxetine [Cymbalta] Allergy (Unknown, Verified 09/07/22 13:54) Unknown hydroxyzine Allergy (Unknown, Verified 09/07/22 13:54) unknown risperidone Allergy (Unknown, Verified 09/07/22 13:54) Unknown trazodone Allergy (Unknown, Verified 09/07/22 13:54) Unknown quetiapine [From SEROQUEL] Adverse Reaction (Severe, Verified 09/07/22 13:54) Acute Dystonic reaction HPI Nutrition Presentation Details Pt presents for MNT for T2DM . Pt presents accompanied by Daylin Luong outreach staff from [facility]. Pt reports having a HEAD STOCK OPERATOR who helps with some meal preparation. Meals consist of B: sandwich (ham/cheese ) coffee L: rice/rangel chicken , water or milk D: sandwich or left over rice/beans/chicken, juice or water or crackers or cereal snack: peanut butter crackers, fruit or yogurt , water or diet juice physical activity: uses walker for assistance ETOH/-- smoking + Pt requesting assistance for evening and weekend meals. Pt was referred to meals on wheels program Pt reports sometimes having hypoglycemia after meals, reports this has improved since adjustments to prandial insulin on 11/23 by MD. Per BG record 59% withing target, 12% very high, 23 % high, 5% low, 1 % very low Noted Pt is on repaglinide and prandial insulin Pt does not carry snacks or glucose tablets with her. [phone] Daylin Luong , outreach from [facility] Most Recent Diabetes Results: Creatinine 0.77 mg/dL (0.5-1.4) 10/14/22 Blood Urea Nitrogen 14 mg/dL (9-16) 10/14/22 Sodium 137 mmol/L (135-145) 10/14/22 Potassium 4.3 mmol/L (3.3-5.1) 10/14/22 Chloride 101 mmol/L (96-108) 10/14/22 Carbon Dioxide 27 mmol/L (22-29) 10/14/22 Calcium 10.4 mg/dL (8.4-10.2) H 10/14/22 AST 15 U/L (5-31) 10/14/22 ALT 15 U/L (0-31) 10/14/22 Total Protein 7.7 g/dL (6.5-8.0) 10/14/22 Albumin 4.1 g/dL (3.5-5.0) 10/14/22 [facility] Medical History CAD (coronary artery disease) Chronic kidney disease, stage 3 unspecified Dementia Depression with anxiety Dermatitis Dermatophytosis Diabetes mellitus with hyperglycemia Dyslipidemia Essential hypertension Joint pain PTSD (post-traumatic stress disorder) Schizoaffective disorder Smoking 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 Mother No problems noted. Social History Household Members: None Household Members Other:: has [facility] Services Housing: Apartment Do you presently have visiting nurse or other home services: No Alcohol intake: former Patient Tobacco Use Status: Current everyday Tobacco user Tobacco use type: Cigarette Cigarette Packs Per Day: 1 Cigarettes Per Day: 20.0 Second Hand Smoke Exposure: No Advance Directives Date on File: 09/30/20 service: No Sexual orientation: Straight/Heterosexual Assessment & Plan Assessment & Plan (1) Diabetes mellitus with hyperglycemia: Code(s): E11.65 - Type 2 diabetes mellitus with hyperglycemia Plan: used wt : 64 kg Est kcal needs as per MSJ: 1500 (40% carb, 30% protein/fat) Est fluid needs as per 25-30 ml/d: 1600 Est prot per day as per 1 g/kg bw: 64 Recommend fiber intake : 8-10 g per day and gradually increase to 25-28 g per day for women and 35-38 g for men or as tolerated Recommend sodium intake per day : less than 1500 mg less than 2000 mg Educated patient on: ( R = reviewed V = verbalizes understanding N/R = needs review N/A = not applicable * Differences between complex carbohydrates a simple carbohydrates, role of fiber in diet: R * Differences between types of fats and role in diet (mono on saturated fat fatty acids, saturated fatty acids, trans fats): R * Food sources of sodium in salt and healthy modifications for heart health in kidney health: R * Vitamins and minerals: R * Healthy plate method concept: R * Physical activity: Benefits a precaution: R * Hypoglycemia protocol (rule of 15): R, V - Must carry glucose tablets, snacks to prevent hypoglycemia * Dietary prevention of Hyperglycemia: R Medications: Discontinued repaglinide Discontinued Reason: Doctor's Order 2 mg PO TID 90 tabs 5RF Patient Instructions: Referred to [facility] meals on wheel program - voicemail message left [phone] Treat low blood sugar by following rule of 15 (have 1/2 cup of juice , wait 15 minutes and recheck blood sugar. repeat treatment if sugar continue below 70. Always carry glucose tablets to treat low blood sugar and carry peanut butter snacks to prevent low blood sugar Coding Level of Care Code Nutr Indiv Subseq (13103) Diagnoses Type 2 diabetes mellitus with hyperglycemia, with long-term current use of insulin E11.65 Time Spent (min) 30
== END 2022-11-29 14:05 | disposition home or self-care (01) ==
PROVIDERS: PCP Internal Medicine; Visit Provider Dietitian, Registered
DX: E11.65 Type 2 diabetes mellitus with hyperglycemia (principal)

== ENCOUNTER → 2022-11-29 12:52 | Outpatient (BNVA) | payer MEDICARE, MEDICAID, SELFPAY | PROVIDERS: PCP Internal Medicine; Visit Provider Dietitian, Registered | DX: E11.42 Type 2 diabetes mellitus with diabetic polyneuropathy (principal); E11.65 Type 2 diabetes mellitus with hyperglycemia; E11.22 Type 2 diabetes mellitus with diabetic chronic kidney disease; N18.30 Chronic kidney disease, stage 3 unspecified; Z79.4 Long term (current) use of insulin | CPT/HCPCS: 97803 ==

== ENCOUNTER → 2023-01-03 10:52 | Outpatient (BNVA) | payer MEDICARE, MEDICAID, SELFPAY | PROVIDERS: PCP Internal Medicine; Visit Provider Registered Nurse Diabetes Educator ==

== ENCOUNTER 2023-01-04 12:43 | Outpatient (AMB) | payer MEDICARE, MEDICAID, SELFPAY ==
--- NOTE | 2023-01-04 13:20 | A.OFFVIS_ITS ---
Intake Intake Visit Reasons: DM Financial Institution Treasurer Required: Yes Financial Institution Treasurer Language: Student Records Coordinator Name: Daylin Luong , [place] Information Interpreted: non-clinical & clinical Allergies duloxetine [Cymbalta] Allergy (Unknown, Verified 09/07/22 13:54) Unknown hydroxyzine Allergy (Unknown, Verified 09/07/22 13:54) unknown risperidone Allergy (Unknown, Verified 09/07/22 13:54) Unknown trazodone Allergy (Unknown, Verified 09/07/22 13:54) Unknown quetiapine [From SEROQUEL] Adverse Reaction (Severe, Verified 09/07/22 13:54) Acute Dystonic reaction HPI Comprehensive Diabetes Asmnt Most Recent Diabetes Results: Hemoglobin A1c 8.0 % 04/22/18 Microalb/Creat Ratio 39.8 ug/mg cr 03/12/20 Cholesterol 147 mg/dL 10/01/20 HDL Cholesterol 39 mg/dL 10/01/20 Triglycerides 132 mg/dL 10/01/20 Creatinine 0.77 mg/dL (0.5-1.4) 10/14/22 Blood Urea Nitrogen 14 mg/dL (9-16) 10/14/22 Sodium 137 mmol/L (135-145) 10/14/22 Potassium 4.3 mmol/L (3.3-5.1) 10/14/22 Chloride 101 mmol/L (96-108) 10/14/22 Carbon Dioxide 27 mmol/L (22-29) 10/14/22 Calcium 10.4 mg/dL (8.4-10.2) H 10/14/22 AST 15 U/L (5-31) 10/14/22 ALT 15 U/L (0-31) 10/14/22 Total Protein 7.7 g/dL (6.5-8.0) 10/14/22 Albumin 4.1 g/dL (3.5-5.0) 10/14/22 [facility] Medical History CAD (coronary artery disease) Chronic kidney disease, stage 3 unspecified Dementia Depression with anxiety Dermatitis Dermatophytosis Diabetes mellitus with hyperglycemia Dyslipidemia Essential hypertension Joint pain PTSD (post-traumatic stress disorder) Schizoaffective disorder Smoking 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 Mother No problems noted. Social History Household Members: None Household Members Other:: has [facility] Services Housing: Apartment Do you presently have visiting nurse or other home services: No Alcohol intake: former Patient Tobacco Use Status: Current everyday Tobacco user Tobacco use type: Cigarette Cigarette Packs Per Day: 1 Cigarettes Per Day: 20.0 Second Hand Smoke Exposure: No Advance Directives Date on File: 09/30/20 service: No Sexual orientation: Straight/Heterosexual Assessment & Plan Assessment & Plan (1) Type 2 diabetes mellitus with chronic kidney disease: Code(s): E11.22 - Type 2 diabetes mellitus with diabetic chronic kidney disease Qualifiers: Diabetes mellitus service technician copier insulin use: with retirement use Chronic kidney disease stage: stage 3 (moderate) Chronic kidney disease stage 3 subtype: unspecified whether 3a or 3b Qualified Code(s): E11.22 - Type 2 diabetes mellitus with diabetic chronic kidney disease; N18.30 - Chronic kidney disease, stage 3 unspecified; Z79.4 - residential (current) use of insulin Plan: Personal Continuous Glucose Monitor: Patients CGM information reviewed Reviewed patient's sensor data: Hypoglycemia: ? 1% Hyperglycemia:? 52% Time in Range:? 47% patient's hypoglycemia has gone from 16% to 1%, After adjustment was made to patient's [place]. patient does carry glucose tabs to treat hypoglycemia reviewed with patient rule of 15s and how to treat hyperglycemia handout given in Belarusian patient's average glucose is now 194 mg/dL, sent message to Dr. Webster regarding change oral diabetes medication and not insulin to address glucose levels over target Patient had large burn on right forearm, instructed patient and Daylin Luong , outreach from [facility], to contact PCP or go to urgent care to have Burn evaluated discussed the importance of monitoring burn for any infection, discussed the effects the diabetes has on poor healing Reviewed how to interpret trend arrows Reminded patient that to check finger sticks if symptoms do not match sensor reading. Discussed lag time between finger stick and sensor data.? Patient able to insert sensor independently at home without issue.? Patient Instructions: patient will follow-up with Diabetes Education nurse in 1 month Coding Level of Care Code Est Pt Level 1 (12168) Diagnoses Type 2 diabetes mellitus with stage 3 chronic kidney disease, with long-term current use of insulin, unspecified whether stage 3a or 3b CKD E11.22; N18.30; Z79.4 Diabetes mellitus service technician copier insulin use: with service technician copier use Chronic kidney disease stage: stage 3 (moderate) Chronic kidney disease stage 3 subtype: unspecified whether 3a or 3b
== END 2023-01-04 13:23 | disposition home or self-care (01) ==
PROVIDERS: PCP Internal Medicine; Visit Provider Registered Nurse Diabetes Educator
DX: E11.22 Type 2 diabetes mellitus with diabetic chronic kidney disease (principal); N18.30 Chronic kidney disease, stage 3 unspecified; Z79.4 Long term (current) use of insulin

== ENCOUNTER → 2023-01-04 12:43 | Outpatient (BNVA) | payer MEDICARE, MEDICAID, SELFPAY | PROVIDERS: PCP Internal Medicine; Visit Provider Registered Nurse Diabetes Educator | DX: E11.22 Type 2 diabetes mellitus with diabetic chronic kidney disease (principal); N18.30 Chronic kidney disease, stage 3 unspecified; Z79.4 Long term (current) use of insulin | CPT/HCPCS: 99211 ==

== ENCOUNTER 2023-01-07 07:33 | Outpatient (REF) | payer MEDICARE, MEDICAID, SELFPAY ==
[2023-01-07 09:52] LABS: Cholesterol 141 mg/dL (<200); HDL Cholesterol 46 mg/dL (>40); LDL Cholesterol Calculated 78 mg/dL (<100); Triglycerides 86 mg/dL (<150)
[2023-01-07 10:47] LABS: Creatinine Urine 41.96 mg/dL; Microalbum/Creatinine Ratio Ur 281.2 ug/mg cr (<30)
== END 2023-01-07 07:34 | disposition home or self-care (01) ==
LOC: HO.LAB 07:33
PROVIDERS: PCP Internal Medicine; Visit Provider Internal Medicine Endocrinology, Diabetes & Metabolism
DX: E11.42 Type 2 diabetes mellitus with diabetic polyneuropathy (principal); Z79.4 Long term (current) use of insulin
CPT/HCPCS: 36415; 80061; 82043; 82570

== ENCOUNTER 2023-01-11 11:16 | Outpatient (AMB) | payer MEDICARE, MEDICAID, SELFPAY ==
[2023-01-11 11:20] VITALS: BP 106/56; PULSE 60; BMI 29.8
--- NOTE | 2023-01-11 11:20 | A.OFFVIS_ITS ---
Intake Vital Signs 01/11/23 11:20 Height 5 ft Weight 152 lb 12.485 oz BMI 29.8 BP 106/56 L Blood Pressure Location Lt brachial Position Sitting Pulse 60 Pulse Source Pulse Oximeter Intake Visit Reasons: DM2-CONFIRMED Intake Note: Patient present today to follow up on Type 2 Diabetes Mellitus. Patient receives DME supplies through: Pharmacy Last Diabetic Eye exam: 2022 Last Podiatry Visit: 09/19 Random Glucose: 402 mg/dl HgA1C: 8.8% Icer Hand Required: Yes Icer Hand Language: Marketing Regional Consultant Name: Daylin Luong [facility] outreach Information Interpreted: non-clinical & clinical Accompanied by: Other Relationship Allergies duloxetine [Cymbalta] Allergy (Unknown, Verified 01/11/23 11:36) Unknown hydroxyzine Allergy (Unknown, Verified 01/11/23 11:36) unknown risperidone Allergy (Unknown, Verified 01/11/23 11:36) Unknown trazodone Allergy (Unknown, Verified 01/11/23 11:36) Unknown quetiapine [From SEROQUEL] Adverse Reaction (Severe, Verified 01/11/23 11:36) Acute Dystonic reaction HPI HPI Comments History of Present Illness Details Patient is a 67 yo female with DM2 who presents for continued management her diabetes. PMH: DM2, dementia, schizoaffective disorder, HTN, HLD, anxiety, Micro and macrovascular complications: + neuropathy, no retinopathy, nephropathy, CVA, CAD, PVD. Current medication regimen: .Patient taking Tresiba 40 units daily NovoLog inject 6 units if POC>150 and 10 units if POC>250 subcutaneously 3 times a day repaglinide 4mg TID prior to meals , , metformin 500mg BID. Intolerant of SGLT-2 due to hyponatremia. In past Trulicity stopped due elevated lipase and question of pancreatitis. Symptoms: denies numbness and tingling in lower extremities, reports pain in legs and uses cream which helps and has socks that were ordered. Hypoglycemia:rare Hyperglycemia: reports polydypsia, reports polyuria, Blood glucose monitoring: Personal Continuous Glucose Monitor: Patients CGM information reviewed Reviewed patient's sensor data: Hypoglycemia: ? 1% Hyperglycemia:? 48% Time in Range:? 51% Average glucose is 185 with G mi of 7.7% and variability of 35.5% patient's hypoglycemia has gone from 16% to 1%, After adjustment was made to patient's Tresiba. Eye Exam: , no retinopathy. Needs to make appt Aide states patient is taking NovoLog insulin before eating and eating overnight without taking insulin Laboratory Tests 10/01/20 05/01/21 07:03 18:18 Creatinine 1.21 Estimated GFR 45 Triglycerides 132 Cholesterol 147 D LDL Cholesterol, C alc 82 HDL Cholesterol 39 10/01/20 01/28/21 07:03 15:40 Creatinine 1.02 Estimated GFR 54 Triglycerides 132 Cholesterol 147 D LDL Cholesterol, C alc 82 HDL Cholesterol 39 Laboratory Tests 05/01/21 18:18 Hgb 11.9 L recently saw CDE and is limited from a psychosocial perspective in that insulin can only be given at certain times when home health aide is available [facility] Medical History CAD (coronary artery disease) Chronic kidney disease, stage 3 unspecified Dementia Depression with anxiety Dermatitis Dermatophytosis Diabetes mellitus with hyperglycemia Dyslipidemia Essential hypertension Joint pain PTSD (post-traumatic stress disorder) Schizoaffective disorder Smoking Type 2 diabetes mellitus with chronic kidney disease Type 2 diabetes mellitus with diabetic polyneuropathy Surgical History Hx of colonoscopy Hx of cataract surgery Hx of tubal ligation Hx of section Family History Father No problems noted. Mother No problems noted. Social History Household Members: None Household Members Other:: has CHD Services Housing: Apartment Do you presently have visiting nurse or other home services: No Alcohol intake: former Patient Tobacco Use Status: Current everyday Tobacco user Tobacco use type: Cigarette Cigarette Packs Per Day: 1 Cigarettes Per Day: 20.0 Second Hand Smoke Exposure: No Advance Directives Date on File: 09/30/20 service: No Sexual orientation: Straight/Heterosexual Physical Exam Vital Signs: Last Vital Signs Pulse 60 01/11/23 11:20 BP 106/56 L 01/11/23 11:20 BMI result Body Mass Index 29.8 Absence of Cushingoid features. Absence of acromegalic features. Neck exam reveals nl size thyroid about 15 gms. No thyroid nodules palpable. No carotid bruits present. Lungs CTA. Heart S1 S2, Reg R/R. No M/R/ G. Skin exam reveals absence of vitiligo or acanthosis nigricans. Abdominal exam reveals Soft NT/ND with NA BS. No organomegaly present. Neck Other: . Extrem Other: Visual exam of foot performed. No ulcerations or open lesions. No onchomycosis, no callouses.Pulses 2 + distally Sensation intact to monofilament exam. Vibratory sensation sensed is idecreased with 128 Hz tuning fork Results AMB Hemoglobin A1c AMB Hemoglobin A1c 8.8 % Last Edit by Connie Goel on 01/11/23 11:43 Results Reviewed Results Reviewed: 01/11/23 11:32 Glucose, Whole Blood Routine Laboratory Last Values Glucose (Clinic) 402 mg/dL (60-115) H* 01/11/23 11:32 Hgb A1c (Clinic) 8.8 % (4.0-6.0) H 01/11/23 11:40 Assessment & Plan Assessment & Plan (1) Type 2 diabetes mellitus with chronic kidney disease: Code(s): E11.22 - Type 2 diabetes mellitus with diabetic chronic kidney disease Qualifiers: Chronic kidney disease stage: stage 3 (moderate) Chronic kidney disease stage 3 subtype: unspecified whether 3a or 3b Diabetes mellitus exterminator termite insulin use: with usp use Qualified Code(s): E11.22 - Type 2 diabetes mellitus with diabetic chronic kidney disease; N18.30 - Chronic kidney disease, stage 3 unspecified; Z79.4 - rat exterminator (current) use of insulin Plan: This 67-year-old female with history of type 2 diabetes being treated with metformin Prandin as well as basal-bolus insulin with poor glycemic control and known microvascular complications namely neuropathy and CKD. Her diabetic control is somewhat limited by her dementia and comorbid conditions. At present time her HbA1c is optimized considering other comorbidities Plan is to have patient return to primary care provider for further management and returned back to endocrinology should her HbA1c deteriorate significantly. Patient would benefit from more supervised care during the day to avoid omission of insulin such as what occurred today. Because point care was > 400, 10 units of Humalog insulin was given Orders: Orders AMB Hemoglobin A1c Today E11.22 - Type 2 diabetes mellitus with diabetic chronic kidney disease Coding Level of Care Code Est Pt Level 4 (61592) Diagnoses Type 2 diabetes mellitus with stage 3 chronic kidney disease, with long-term current use of insulin, unspecified whether stage 3a or 3b CKD E11.22; N18.30; Z79.4 Chronic kidney disease stage: stage 3 (moderate) Chronic kidney disease stage 3 subtype: unspecified whether 3a or 3b Diabetes mellitus usp insulin use: with exterminator termite use
[2023-01-11 11:38] LABS: Glucose, Whole Blood 402 mg/dL (60-115)
[2023-01-11 14:32] LABS: Glucose, Whole Blood 305 mg/dL (60-115)
== END 2023-01-11 11:58 | disposition home or self-care (01) ==
PROVIDERS: PCP Internal Medicine; Visit Provider Internal Medicine Endocrinology, Diabetes & Metabolism
DX: E11.22 Type 2 diabetes mellitus with diabetic chronic kidney disease (principal); N18.30 Chronic kidney disease, stage 3 unspecified; Z79.4 Long term (current) use of insulin
CPT/HCPCS: 99214

== ENCOUNTER → 2023-01-11 11:16 | Outpatient (BNVA) | payer MEDICARE, MEDICAID, SELFPAY | PROVIDERS: PCP Internal Medicine; Visit Provider Internal Medicine Endocrinology, Diabetes & Metabolism | DX: E11.22 Type 2 diabetes mellitus with diabetic chronic kidney disease (principal); N18.30 Chronic kidney disease, stage 3 unspecified; Z79.4 Long term (current) use of insulin | CPT/HCPCS: 82947; 83036; 99212 ==

== ENCOUNTER 2023-03-11 10:54 | Outpatient (REF) | payer MEDICARE, MEDICAID, SELFPAY ==
--- NOTE | ~2023-03-11 | MM_ITS ---
EXAMINATION: MM DIAGNOSTIC DIGITAL BREAST TOMOSYNTHESIS, LEFT CLINICAL INFORMATION: Follow-up 2 groups calcifications left breast, 3:00 and mid central breast. First 6 month follow-up. Probably dystrophic calcifications. COMPARISON: Mammography: 07/23/2022, 08/16/2022, 06/05/2021, and exams dating back to 2020 TECHNIQUE: Digital left breast tomosynthesis is performed in both the craniocaudal and mediolateral oblique views along with computer-aided detection (CAD). Synthesized 2D images are generated from the tomosynthesis. In addition, 2-D spot magnification views left breast in the CC and ML projections were obtained. FINDINGS: The breasts are heterogeneously dense, which may obscure small masses (ACR BI-RADS breast composition Category c). The 2 small groups of calcifications in the left breast centrally and at the 3:00 position are unchanged in number, appearance, and morphology, and likely dystrophic related to fibroadenomatous changes. Six-month follow-up to establish one-year stability recommended to include standard magnification views left breast. An oval circumscribed isodense mass measuring 7 mm in the left slightly inferior outer breast, middle third, is unchanged from 2020 and benign. There are vascular calcifications present. There are additional dystrophic scattered calcifications present. These are benign. No suspicious masses or developing regions of architectural distortion left breast noted. MM/MM tomosynthesis diagnostic LT IMPRESSION: There are no significant changes from prior study. Stable groups of likely dystrophic calcifications left breast 3:00 and centrally. Recommend six-month interval follow-up left mammography with standard magnification views to establish one-year stability. ASSESSMENT: BI-RADS BI-RADS 3 - Probably benign finding(s) - 6 month follow-up suggested RECOMMENDATION: 6 Month F/U Results were provided to the patient at time of visit by the technologist. This patient's information was entered into a reminder system with a target due date for their next mammogram.
== END 2023-03-11 10:55 | disposition home or self-care (01) ==
LOC: HO.MAMMO 10:54
PROVIDERS: PCP Internal Medicine; Visit Provider Internal Medicine
DX: R92.1 Mammographic calcification found on diagnostic imaging of breast (principal)
CPT/HCPCS: 77061; 77065

== ENCOUNTER → 2023-03-11 11:00 | Outpatient (BNV) | payer MEDICARE, MEDICAID, SELFPAY | PROVIDERS: PCP Internal Medicine; Visit Provider Radiology Diagnostic Radiology | DX: R92.1 Mammographic calcification found on diagnostic imaging of breast (principal) | CPT/HCPCS: 77061; 77065 ==

== ENCOUNTER 2023-04-01 13:37 | Outpatient (REF) | payer MEDICARE, MEDICAID, SELFPAY ==
--- NOTE | ~2023-04-01 | XR_ITS ---
EXAMINATION: XR KNEE, RIGHT CLINICAL INFORMATION: Pain of one week's duration. COMPARISON: Prior radiographs, most recently 01/19/2019. TECHNIQUE: AP, lateral and tunnel views of the right knee are submitted. FINDINGS: Bony alignment and mineralization are normal. The lateral, medial and patellofemoral joint space compartments are well-maintained. There is no fracture, dislocation or joint effusion. Again, there are soft tissue calcifications adjacent to the right lateral femoral condyle. No foreign body is seen. XR/XR knee RT 3V IMPRESSION: 1. No right knee fracture, dislocation or joint effusion is seen. 2. The right lateral, medial and patellofemoral joint space compartments are well-maintained. 3. Again, there are soft tissue calcifications adjacent to the right lateral femoral condyle, raising the possibility of an old, healed ligamentous injury.
== END 2023-04-01 13:38 | disposition home or self-care (01) ==
LOC: HO.HHCX 13:37
PROVIDERS: Visit Provider Student in an Organized Health Care Education/Training Program
DX: Z13.89 Encounter for screening for other disorder (principal)
CPT/HCPCS: 73562

== ENCOUNTER 2023-04-01 13:57 | Outpatient (REF) | payer MEDICARE, MEDICAID, SELFPAY ==
[2023-04-01 16:31] LABS: Basophils Absolute Auto 0.1 X10*3/uL (0.0-0.2); Basophils Percent Auto 0.7 % (0-2); Eosinophils Absolute Auto 0.3 X10*3/uL (0.0-0.4); Eosinophils Percent Auto 2.4 % (0-4); Hematocrit 36.7 % (37.0-47.0); Hemoglobin 12.1 g/dl (12.0-16.0); Imm Gran Abs Auto 0.03 X10*3/uL (0.00-0.03); Imm Gran Pct Auto 0.3 % (0.0-0.4); Lymphocytes Percent Auto 44.7 % (20-40); MANUAL DIFF FLAG SCAN; Mean Corpuscular Hemoglobin 27.3 pg (27.0-33.0); Mean Corpuscular Volume 82.7 fL (80.0-98.0); Mean Platelet Volume 12.6 fL (9.4-12.3); Monocytes Absolute Auto 0.9 X10*3/uL (0.1-1.2); Neutrophils Absolute Auto 4.9 x10*3/uL (2.0-8.3); Neutrophils Percent Auto 43.9 % (45-73); Platelet Count 211 X10*3/uL (160-400); Red Blood Count 4.44 X10*6/uL (4.20-5.50); SCAN SMEAR FLAG 1; White Blood Count 11.2 X10*3/uL (4.8-10.8)
[2023-04-01 16:55] LABS: Creatinine Urine 55.18 mg/dL; Microalbum/Creatinine Ratio Ur 94.2 ug/mg cr (<30)
[2023-04-01 16:59] LABS: Alanine Aminotransferase 13 U/L (0-31); Albumin Level 3.9 g/dL (3.5-5.0); Alkaline Phosphatase 79 U/L (39-117); Anion Gap 13 (12-20); Aspartate Amino Transferase 15 U/L (5-31); Bilirubin Direct < 0.2 mg/dL (0.0-0.5); Bilirubin Total 0.2 mg/dL (0.0-1.0); Blood Urea Nitrogen 12 mg/dL (9-16); Calcium 9.7 mg/dL (8.4-10.2); Carbon Dioxide 25 mmol/L (22-29); Chloride 100 mmol/L (96-108); Estimated Glomerular Filt Rate > 60; Glucose Random 148 mg/dL (60-115); Iron 52 mcg/dL (30-160); Percent Iron Saturation 19 % (15-50); Potassium 3.5 mmol/L (3.3-5.1); Sodium 134 mmol/L (135-145); Total Iron Binding Capacity 273 mcg/dL (228-428); Total Protein 7.1 g/dL (6.5-8.0); Unsaturated Iron Binding 221 ug/dL
[2023-04-01 17:00] LABS: TSH reflex Free T4 2.81 uIU/mL (0.32-4.0)
[2023-04-01 17:11] LABS: Folate 11.7 ng/mL (> or = 4.0); Vitamin B12 410 pg/mL (200-900)
[2023-04-01 17:17] LABS: SLIDE REVIEW VERIFIED
== END 2023-04-01 13:58 | disposition home or self-care (01) ==
LOC: HO.HHCL 13:57
PROVIDERS: Visit Provider Internal Medicine
DX: M25.561 Pain in right knee (principal); E11.65 Type 2 diabetes mellitus with hyperglycemia; R42 Dizziness and giddiness; R63.4 Abnormal weight loss; Z79.4 Long term (current) use of insulin
CPT/HCPCS: 36415; 73562; 80048; 80076; 82043; 82570; 82607; 82746; 83540; 84443; 85025

== ENCOUNTER 2023-04-15 10:59 | Outpatient (AMB) | payer MEDICARE, MEDICAID, SELFPAY ==
[2023-04-15 11:01] VITALS: BMI 29.7
--- NOTE | 2023-04-15 11:01 | A.OFFVIS_ITS ---
Intake Vital Signs 04/15/23 11:01 Height 5 ft Weight 152 lb BMI 29.7 Intake Visit Reasons: N/P Rt knee pain Intake Note: Celeste is a 68 year old female who presents today with radiation control worker as a new patient for a evaluation of her right knee pain. Patient reports ongoing pain for many years. Hx of couple falls in the past. She states that she had a injection in the past but it made her pain worse. Pain is on the whole knee, which moves through out her whole leg. Allergies duloxetine [Cymbalta] Allergy (Unknown, Verified 04/15/23 11:18) Unknown hydroxyzine Allergy (Unknown, Verified 04/15/23 11:18) unknown risperidone Allergy (Unknown, Verified 04/15/23 11:18) Unknown trazodone Allergy (Unknown, Verified 04/15/23 11:18) Unknown quetiapine [From SEROQUEL] Adverse Reaction (Severe, Verified 04/15/23 11:18) Acute Dystonic reaction HPI N/P Rt knee pain HPI Details 68-year-old female, who is [place] speak ing, presents in the office today, as a new patient, for an evaluation of right knee pain. While in the office today the patient reports pain in the right knee for many years. She confirms a history of falls in the past. She reports having cortisone injection in the past, but states this made the pain in her knee worse. She claims the pain in her knee radiates through out the entire right lower extremity. Patient has a significant medical history of diabetes mellitus. [facility] Medical History CAD (coronary artery disease) Chronic kidney disease, stage 3 unspecified Dementia Depression with anxiety Dermatitis Dermatophytosis Diabetes mellitus with hyperglycemia Dyslipidemia Essential hypertension Joint pain PTSD (post-traumatic stress disorder) Schizoaffective disorder Smoking Type 2 diabetes mellitus with chronic kidney disease Type 2 diabetes mellitus with diabetic polyneuropathy Surgical History Hx of colonoscopy Hx of cataract surgery Hx of tubal ligation Hx of section Family History Father No problems noted. Mother No problems noted. Social History Household Members: None Household Members Other:: has CHD Services Housing: Apartment Do you presently have visiting nurse or other home services: No Alcohol intake: former Patient Tobacco Use Status: Current everyday Tobacco user Tobacco use type: Cigarette Cigarette Packs Per Day: 1 Cigarettes Per Day: 20.0 Second Hand Smoke Exposure: No Advance Directives Date on File: 09/30/20 service: No Sexual orientation: Straight/Heterosexual Review of Systems Const All systems reviewed & are unremarkable except as noted in HPI and below Physical Exam Vital Signs: BMI result Body Mass Index 29.7 Const General: cooperative and no acute distress Orientation/consciousness: patient oriented x3 Resp Effort & Inspection: normal respiratory effort and able to speak in complete sentences Cardio Peripheral pulses: Peripheral pulses 2+ throughout Skin General skin exam: no rashes or lesions noted Neuro General: patient oriented x3 Extrem Other: Right knee: Normal to inspection. No ecchymosis, erythema, or joint effusion. No tenderness to palpation to the medial or lateral joint lines. Full knee extension and flexion. Positive straight leg raise, bilaterally worse on the right. 3/5 weakness with resisted hip flexion and knee extension, bilaterally. NVI. Assessment & Plan Assessment & Plan (1) Lumbar radiculopathy: Code(s): M54.16 - Radiculopathy, lumbar region (2) Bilateral knee pain: Code(s): M25.561 - Pain in right knee; M25.562 - Pain in left knee Qualifiers: Chronicity: unspecified Qualified Code(s): M25.561 - Pain in right knee; M25.562 - Pain in left knee Plan Ms. Cunha is a 68-year-old female, who is [place]an speaking, presents in the office today, as a new patient, for an evaluation of right knee pain. While in the office today the patient reports pain in the right knee for many years. She confirms a history of falls in the past. She reports having cortisone injection in the past, but states this made the pain in her knee worse. She claims the pain in her knee radiates through out the entire right lower extremity. Patient has a significant medical history of diabetes mellitus. A referral has been placed for further evaluation by Physiatry for lower back pain. The patient endorses pain and has radicular symptoms to bilateral lower extremities with accompanied weakness. She does use a walker to ambulate as well. Follow up will be PRN, or sooner if needed. Orders: Orders XR knee standing BI Today M25.569 - Pain in unspecified knee XR knee RT 1V Today M25.569 - Pain in unspecified knee Patient Instructions: Scribed by Kaycee [email or web address] medical information officer, for Celeste Narayan PA-C on 04/15/2023 at 11:08 am, EST. Coding Level of Care Code New Pt Level 4 (29019) Diagnoses Lumbar radiculopathy M54.16 Pain in both knees, unspecified chronicity M25.561; M25.562 Chronicity: unspecified
== END 2023-04-15 11:43 | disposition home or self-care (01) ==
PROVIDERS: PCP Internal Medicine; Visit Provider Physician Assistant
DX: M54.16 Radiculopathy, lumbar region (principal); M25.561 Pain in right knee; M25.562 Pain in left knee
CPT/HCPCS: 99203

== ENCOUNTER 2023-04-15 16:03 | Outpatient (REF) | payer MEDICARE, MEDICAID, SELFPAY ==
--- NOTE | ~2023-04-15 | XR_ITS ---
EXAMINATION: XR KNEE AP STANDING, BILATERAL XR KNEE, RIGHT CLINICAL INFORMATION: Pain in unspecified knee. COMPARISON: 01/19/2019 AP standing bilateral knees and right knee. 01/05/2018 bilateral knees. 04/01/2023 right knee. TECHNIQUE: AP standing view of bilateral knees. [place] view of the right knee. FINDINGS: RIGHT KNEE: Previously identified soft tissue calcifications adjacent to the lateral femoral condyle are not clearly visualized. Minimal medial joint space narrowing with minimal medial marginal osteophytes. AP STANDING VIEW LEFT KNEE: Medial and lateral joint spaces are preserved. Minimal prominent ossification overlying the medial tibial spine redemonstrated. XR/XR knee standing BI IMPRESSION: Minimal degenerative changes right knee.
--- NOTE | ~2023-04-15 | XR_ITS ---
EXAMINATION: XR KNEE AP STANDING, BILATERAL XR KNEE, RIGHT CLINICAL INFORMATION: Pain in unspecified knee. COMPARISON: 01/19/2019 AP standing bilateral knees and right knee. 01/05/2018 bilateral knees. 04/01/2023 right knee. TECHNIQUE: AP standing view of bilateral knees. [place] view of the right knee. FINDINGS: RIGHT KNEE: Previously identified soft tissue calcifications adjacent to the lateral femoral condyle are not clearly visualized. Minimal medial joint space narrowing with minimal medial marginal osteophytes. AP STANDING VIEW LEFT KNEE: Medial and lateral joint spaces are preserved. Minimal prominent ossification overlying the medial tibial spine redemonstrated. XR/XR knee RT 1V IMPRESSION: Minimal degenerative changes right knee.
== END 2023-04-15 16:04 | disposition home or self-care (01) ==
LOC: HO.HOSX 16:03
PROVIDERS: Visit Provider Physician Assistant
DX: M25.561 Pain in right knee (principal); M25.562 Pain in left knee; M54.16 Radiculopathy, lumbar region; Z91.81 History of falling
CPT/HCPCS: 73560; 73565; 99202

== ENCOUNTER 2023-05-16 10:18 | Inpatient (IN) | payer MEDICARE, MEDICAID, SELFPAY ==
--- NOTE | ~2023-05-16 | XR_ITS ---
EXAMINATION: XR CHEST CLINICAL INFORMATION: AMS. COMPARISON: Chest 10/14/2022 TECHNIQUE: Frontal view of the chest was obtained. FINDINGS: The lungs are well-expanded with minimal haziness in both lung bases similar to previous study but no infiltrate or pleural effusion seen. Heart size and pulmonary vascularity is normal. No gross bony abnormality seen. XR/XR chest 1V IMPRESSION: Minimal haziness in both lung bases likely atelectasis or scarring similar to previous study. No acute pneumonic consolidation seen.
--- NOTE | ~2023-05-16 | CT_ITS ---
EXAMINATION: CT ABDOMEN AND PELVIS WITH CONTRAST CLINICAL INFORMATION: elevated lipase, AMS COMPARISON: 11/07/2021 TECHNIQUE: Multidetector volumetric imaging was performed from the superior aspect of the liver through the pubic symphysis following administration of 85 mL Omnipaque 300 intravenous contrast. Sagittal and coronal reformatted images were obtained on the technologist workstation.. This CT examination was performed using dose optimization techniques as appropriate, variously including the following: *Automated exposure control *Adjustment of mA and/or kV according to patient size (this includes techniques or standardized protocols for targeted exams where dose is matched to indication/reason for exam; i.e. extremities or head) *Use of iterative reconstruction technique DLP: 370 mGy-cm FINDINGS: LUNG BASES: Dependent airspace changes more likely due to atelectasis LIVER, GALLBLADDER, AND BILIARY TREE: Mild diffuse fatty infiltration of the liver. No focal hepatic lesion nor biliary ductal dilatation. The gallbladder is unremarkable with no evidence of radiopaque gallstones, gallbladder wall thickening, or obvious pericholecystic inflammatory changes. PANCREAS: Unremarkable. No peripancreatic inflammatory changes or fluid at this time. No pancreatic ductal dilatation. SPLEEN: Small subcapsular splenic calcifications are again noted. ADRENAL GLANDS: Unremarkable. KIDNEYS AND URETERS: The kidneys are normal in size, shape, and attenuation. Mild fullness to the right collecting system and ureter. No perinephric stranding. No calculi. BLADDER: Markedly distended to the level of the umbilicus which is similar to the 2021 study GASTROINTESTINAL TRACT: A few scattered colonic diverticula are seen. No colonic wall thickening or pericolonic inflammatory change to suggest diverticulitis. Small bowel unremarkable. Stomach is decompressed. ABDOMINAL WALL: No significant hernia is appreciated. LYMPHOVASCULAR STRUCTURES: Extensive vascular calcification within the aorta iliac system. PELVIC VISCERA: Unremarkable. OSSEOUS STRUCTURES: Degenerative changes in the spine more so at L5/S1 CT/CT abdomen pelvis w IV con IMPRESSION: 1. Markedly distended urinary bladder to the level of the umbilicus. Mild fullness to the right collecting system and ureter but no obvious renal or ureteric calculi seen. 2. Mild fatty infiltration of the liver. 3. No peripancreatic inflammatory changes or fluid at this time. No pancreatic ductal dilatation.
--- NOTE | ~2023-05-16 | CT_ITS ---
EXAMINATION: CT HEAD WITHOUT CONTRAST CLINICAL INFORMATION: Altered mental status COMPARISON: CT head from 10/14/2022 TECHNIQUE: Contiguous axial imaging was performed from the skull base to vertex without intravenous administration of contrast. This CT examination was performed using dose optimization techniques as appropriate, variously including the following: *Automated exposure control *Adjustment of mA and/or kV according to patient size (this includes techniques or standardized protocols for targeted exams where dose is matched to indication/reason for exam; i.e. extremities or head) *Use of iterative reconstruction technique DLP: 1236 mGy-cm FINDINGS: There is no evidence of acute intracranial hemorrhage or territorial infarction. Chronic white matter small vessel ischemic changes. No abnormal mass effect or midline shift is seen. Aponte to white matter differentiation is well preserved. No extra-axial fluid collections are identified. The ventricles are normal in size. There is no abnormal attenuation within the brain parenchyma. The osseous structures and soft tissues are normal. The mastoid air cells and visualized portions of the paranasal sinuses are well aerated. Atherosclerotic calcifications are noted. CT/CT cervical spine wo IV con IMPRESSION: 1. No acute intracranial pathology. 2. Chronic white matter small vessel ischemic changes. EXAMINATION: Noncontrast CT scan of the cervical spine. INDICATION: Altered mental status COMPARISON: CT cervical spine from 10/14/2022 TECHNIQUE: Helical, multidetector axial images were obtained from the occiput to the upper thorax. Coronal and sagittal reformats of the cervical spine were provided for interpretation. DLP: 1236 mGy-cm FINDINGS: No acute fractures or dislocations of the cervical spine are seen. Multilevel degenerative changes. Anatomic alignment and positioning of the vertebral bodies and posterior elements is noted. The atlantoaxial joint and craniovertebral articulations are normal without evidence of subluxation. There is no prevertebral soft tissue swelling. The thyroid gland and visualized portions of the lung apices and mediastinum are unremarkable. IMPRESSION: 1. No acute visible fracture or dislocation. 2. Multilevel degenerative changes.
[2023-05-16 10:23] VITALS: BP 160/108; PULSE 79; O2SAT 97
--- NOTE | 2023-05-16 10:47 | ED_ITS ---
HPI - General Adult General Chief complaint: General Medical Stated complaint: HYPERTENSION Time Seen by Provider: 05/16/23 10:44 Source: patient and old records reviewed Mode of arrival: ambulatory Limitations: language barrier History of Present Illness HPI narrative: This is a 68-year-old female, with a past medical history of dementia, diabetes, CKD, CAD, dementia, schizoaffective disorder, PTSD, and hypertension, who presents emergency department for evaluation of increased confusion per [employer] per EMS report. She states that she ?does not feel well?. She is unable to report what she is feeling however does report she is neck pain and back pain. She denies headache, chest pain, shortness of breath, abdominal pain, nausea, vomiting or diarrhea. Patient is a poor historian, appears to be confused. She is alert and oriented to person and place however confused as to why she is here. No other complaints or concerns at this time. MD complaint: AMS Associated symptoms: denies other symptoms Treatments prior to arrival: none Related Data Home Medications Medication Instructions Recorded Confirmed ketotifen fumarate 0.025 % (0.035 1 drp ophthalmic (eye) BID 06/03/21 11/07/21 %) eye drops lorazepam 0.5 mg tablet 1 tab PO DAILY PRN Anxiety 11/07/21 11/07/21 metoprolol tartrate 25 mg tablet 1 tab PO BID 11/07/21 11/07/21 pantoprazole 40 mg tablet,delayed mg PO 05/19/22 release alcohol swabs (Alcohol Pads) pad topical 06/16/22 ammonium lactate 12 % lotion topical 06/16/22 hydrocortisone 2.5 % topical cream FL 06/16/22 with perineal applicator (Proctozone-HC) sertraline 100 mg tablet mg PO 06/16/22 aripiprazole 20 mg tablet mg PO 09/07/22 buspirone 10 mg tablet 10 mg PO TID 09/07/22 Previous Rx's Medication Instructions Recorded acetaminophen 500 mg tablet 1,000 mg (2 x 500 mg) PO Q8H PRN 10/09/20 (Tylenol Extra Strength) Pain 30 days #120 tabs aspirin 81 mg tablet,delayed 81 mg PO DAILY 30 days #30 tabs 10/09/20 release (Adult Aspirin Regimen) lancets 28 gauge (FreeStyle #100 ea 10/09/20 Lancets) olanzapine 20 mg tablet (Zyprexa) 20 mg PO BEDTIME 30 days #30 tabs 10/09/20 blood sugar diagnostic (FreeStyle #100 ea 01/05/22 Lite Strips) blood-glucose meter (FreeStyle #1 ea 01/05/22 Lite Meter kit) metformin 500 mg tablet 500 mg PO BID #60 tabs 01/05/22 pen needle, diabetic 32 gauge x #100 ea 01/05/2232 (Unifine Pentips) docusate sodium 100 mg capsule 200 mg (2 x 100 mg) PO BEDTIME 05/19/22 #180 caps sennosides 8.6 mg tablet (Natural 8.6 mg PO BEDTIME constipation #90 05/19/22 Senna Laxative) tabs flash glucose scanning reader #1 ea 06/16/22 (FreeStyle Ni 2 [place]) insulin aspart U-100 100 unit/mL See Rx Instructions subcut TID #15 06/16/22 (3 mL) subcutaneous pen (Novolog mL FlexPen U-100 Insulin aspart) ahheybrrhx-zulqtrgxsxmvt-tsusbqcd 1 cap PO Q4-6H PRN headache #14 10/14/22 50 mg-300 mg-40 mg capsule caps (Fioricet) insulin degludec 200 unit/mL (3 28 unit (0.14 mL) subcut DAILY #9 11/19/22 mL) subcutaneous pen (Tresiba mL FlexTouch U-200 insulin) flash glucose sensor (FreeStyle #2 kits 12/09/22 In 2 Sensor kit) lisinopril 10 mg tablet 10 mg PO DAILY #30 tabs 12/10/22 Allergies Allergy/AdvReac Type Severity Reaction Status Date / Time duloxetine [Cymbalta] Allergy Unknown Unknown Verified 04/15/23 11:18 hydroxyzine Allergy Unknown unknown Verified 04/15/23 11:18 risperidone Allergy Unknown Unknown Verified 04/15/23 11:18 trazodone Allergy Unknown Unknown Verified 04/15/23 11:18 quetiapine [From SEROQUEL] AdvReac Severe Acute Verified 04/15/23 11:18 Dystonic reaction Review of Systems 2 Review of Systems: Yes all other systems are reviewed and are negative Constitutional: Constitutional: Reports as per [facility] Past Medical History Attestation statement: The following information was validated with the patient. Medical History Dermatophytosis Dermatitis Joint pain Depression with anxiety Schizoaffective disorder PTSD (post-traumatic stress disorder) Dementia Smoking CAD (coronary artery disease) Type 2 diabetes mellitus with chronic kidney disease Chronic kidney disease, stage 3 unspecified Type 2 diabetes mellitus with diabetic polyneuropathy Essential hypertension Dyslipidemia Diabetes mellitus with hyperglycemia Surgical History Hx of colonoscopy Hx of cataract surgery Hx of tubal ligation Hx of section Family History Family History Father No problems noted. Mother No problems noted. Social History Social History Household Members: None Household Members Other:: has [facility]D Services Housing: Apartment Do you presently have visiting nurse or other home services: No Alcohol intake: former Patient Tobacco Use Status: Current everyday Tobacco user Tobacco use type: Cigarette Cigarette Packs Per Day: 1 Cigarettes Per Day: 20.0 Second Hand Smoke Exposure: No Advance Directives: Yes Advance Directives on File: Yes Advance Directives Date on File: 09/30/20 service: No Sexual orientation: Straight/Heterosexual Physical Exam ED Vital Signs: Vital Signs - 24 hr 05/16/23 10:49 05/16/23 14:35 05/16/23 15:44 Temperature 98.7 F 97 F Pulse Rate 63 Respiratory Rate 18 16 Blood Pressure 175/75 H 142/63 H Pulse Oximetry 97 94 Oxygen Delivery Method Room Air Room Air BMI result Body Mass Index 25.9 Const General: cooperative, comfortable and no acute distress Orientation/consciousness: oriented to person Limitations: no limitations [facility] Head: Yes normal to inspection, Yes normocephalic and Yes atraumatic Ears: hearing grossly normal bilaterally General nose exam: Normal external nose present Face and sinus: Yes normal facial exam Mouth: Normal oral and palatal mucosa present, oropharynx normal and moist mucous membranes Throat: Yes posterior oropharynx normal Eyes General: appearance normal, both eyes and all related structures Eyelids: Yes eyelids normal Conjunctivae: conjunctivae normal Sclerae: sclerae normal Pupils: Equal, round and reactive pupils present EOM: EOMs intact bilaterally Neck Neck: Yes normal visual inspection, Yes full ROM and Yes no lymphadenopathy Lymphatic: no lymphadenopathy noted Chest Chest palpation & inspection: normal inspection of the chest Resp Effort & Inspection: normal respiratory effort and able to speak in complete sentences Auscultation: clear to auscultation bilaterally, no crackles, no rales, no rhonchi and no wheezes Cardio Rate: regular rate Rhythm: regular rhythm Heart sounds: S1 normal heart sound present and S2 normal heart sound present GI Other: Abdomen is soft and nontender Inspection: Yes normal to inspection Skin General skin exam: no rashes or lesions noted Trauma: no lacerations or abrasions Wounds: no wounds Neuro General: oriented to person and moves all extremities Cranial nerves: Yes Equal, round and reactive pupils present Extrem General: Yes normal to inspection Right upper extremity: normal to inspection Left upper extremity: normal to inspection Right lower extremity: normal to inspection Left lower extremity: normal to inspection Course Reevaluation(s) Reevaluation #1: Labs returned, slight leukocytosis at 16.2, H&H within normal limits. Patient hyponatremic at 123 she has been receiving fluids. Potassium 3.8. Hypomagnesemic at 1.3. > given Mag 2 g IV. Lipase returns, elevated at 296. Abdomen is soft nontender however patient is a poor historian. Chest x-ray showing minimal haziness in both lungs likely atelectasis or scarring similar to previous. No pneumonia or consolidation identified. CT head unremarkable, multilevel degenerative changes in the neck. Will obtain CT abdomen with IV contrast. Time: 15:43 Reevaluation #2: CT abdomen and pelvis returns revealing a markedly distended urinary bladder to the level of the umbilicus, fullness to the right collecting system and ureter but no obvious renal or ureteric calculi seen. Patient was re-evaluated, still stating that she is feeling confused. She is alert and oriented to person place. States that she believes she was sent in by her [employer] due to high blood pressure, however she states over the last several days she has felt more confused. We have made multiple attempts to contact [employer] as well as family however no answer was made. It is unclear how long her symptoms have been occurring for. Unclear what her baseline is. That she has had low magnesium as well as hyponatremic, will admit for further evaluation. Transfer of care initiated. Time: 17:26 Medications Administered Discontinued Medications Generic Name Dose Route Start Last Admin Trade Name Freq PRN Reason Stop Dose Admin Magnesium Sulfate 2 gm in 50 mls @ 25 mls/hr 05/16/23 12:50 05/16/23 15:20 Magnesium Sulfate/H2o IV 05/16/23 14:49 Infused ONCE ONE Infusion Sodium Chloride 1,000 mls @ 999 mls/hr 05/16/23 12:58 05/16/23 15:20 Ns IV 05/16/23 13:58 Infused .Q1H1M ONE Infusion Iohexol 100 ml 05/16/23 17:00 05/16/23 17:00 Iohexol 350 Mg/Ml 100 Ml Infus..Btl IV 05/16/23 17:01 85 ml ONCE ONE Administration Medical Decision Making Medical Decision Making [facility] Narrative: This is a 68-year-old female, with a past medical history of diabetes, CKD, CAD, dementia, schizoaffective disorder, PTSD, and hypertension, who presents emergency department for evaluation of increased confusion per [employer]. There are no notes from patient's [employer]PA[employer]ER therefore unclear why she is here. Upon arrival, she is alert and oriented to person, place, not oriented to time. She is complaining of back pain. She appears confused. Upon arrival, initial blood pressure elevated at 175/75, all other vital signs within normal limits. She is afebrile, nontoxic-appearing, and speaking under no acute respiratory distress. Abdomen is soft nontender. Plan: Labs, EKG, urine drug screen, viral swabs, CT abdomen, head CT, C-spine, chest x-ray, UA Differential Diagnosis Differential Diagnoses: The differential diagnosis associated with the presentation includes Hepatic encephalopathy, electrolyte derangement, urinary tract infection, ICH, CVA Admission/Observation Consideration of admission/observation: Escalation of care including admission/observation considered Escalation of care including admission/observation considered due to increased confusion Consult Healthcare Provider Management of the patient was discussed with: Hospitalist Dr. Salinas Lab Data MDM Lab Attestation statement: I reviewed the patient's lab results. Slight leukocytosis at 16.2, hyponatremic at 1:23 a.m., chloride 91, BUN 6, hyperglycemic at 190, magnesium 1.3, lipase elevated at 296, urine does not appear to be infected. Negative urine drug screen, viral swabs negative. 05/16/23 11:44 05/16/23 11:44 Labs: Lab Results 05/16/23 05/16/23 05/16/23 Range/Units 11:43 11:44 14:03 WBC 16.2 H (4.8-10.8) X10*3/uL RBC 4.62 (4.20-5.50) X10*6/uL Hgb 12.7 (12.0-16.0) g/dl Hct 37.2 (37.0-47.0) % MCV 80.5 (80.0-98.0) fL MCH 27.5 (27.0-33.0) pg MCHC 34.1 (31.0-35.0) g/dl RDW 13.2 (11.0-16.0) % Plt Count 197 (160-400) X10*3/uL MPV 11.4 (9.4-12.3) fL Immature Gran % (Auto) 0.3 (0.0-0.4) % Neut % (Auto) 60.9 (45-73) % Lymph % (Auto) 30.2 (20-40) % [place] % (Auto) 7.4 (2-11) % Eos % (Auto) 0.8 (0-4) % Baso % (Auto) 0.4 (0-2) % Lymph # (Auto) 4.9 (1.2-4.9) X10*3/uL [place] # (Auto) 1.2 (0.1-1.2) X10*3/uL Eos # (Auto) 0.1 (0.0-0.4) X10*3/uL Baso # (Auto) 0.1 (0.0-0.2) X10*3/uL Abs Immat Gran (auto) 0.05 H (0.00-0.03) X10*3/uL Absolute Neuts (auto) 9.9 H (2.0-8.3) x10*3/uL Absolute Nucleated RBC 0.000 (0.0-0.012) X10*3/uL Nucleated RBC % (auto) 0.0 (0.0-0.2) /100WBC Sodium 123 L (135-145) mmol/L Potassium 3.8 (3.3-5.1) mmol/L Chloride 91 L (96-108) mmol/L Carbon Dioxide 24 (22-29) mmol/L Anion Gap 12 (12-20) BUN 6 L (9-16) mg/dL Creatinine 0.76 (0.5-1.4) mg/dL Estim Creat Clear Calc 63.2 Estimated GFR > 60 Random Glucose 190 H (60-115) mg/dL Calcium 9.5 (8.4-10.2) mg/dL Magnesium 1.3 L* (1.6-2.6) mg/dL Total Bilirubin 0.3 (0.0-1.0) mg/dL Direct Bilirubin 0.1 (0.0-0.5) mg/dL AST 19 (5-31) U/L ALT 23 (0-31) U/L Alkaline Phosphatase 94 (39-117) U/L Ammonia 32 (13-55) umol/L Troponin I High Sens 8.5 D (<3.5-17.0) ng/L Total Protein 7.1 (6.5-8.0) g/dL Albumin 4.0 (3.5-5.0) g/dL Lipase 296 H (8-78) U/L Urine Color Yellow Urine Appearance Clear Urine pH 7.0 (5.0-9.0) Ur Specific Leo <= 1.005 (1.005-1.025) Urine Protein 30 (1+) H (Neg-Trace) mg/dL Urine Glucose (UA) Negative (Negative) mg/dL Urine Ketones Negative (Negative) mg/dL Urine Blood Negative (Negative) Urine Nitrite Negative (Negative) Ur Leukocyte Esterase Negative (Negative) Urine RBC 0-2 (0-2) /HPF Urine WBC 0-5 (0-5) /HPF Ur Squamous Epith Cells 0-2 (0-2) /HPF Urine Bacteria None Seen (None Seen) Hyaline Casts 0-2 (0-2) /LPF Urine Opiates Screen Not Detected (Not Detect) Urine Fentanyl Screen Not Detected (Not Detect) Ur Barbiturates Screen Not Detected (Not Detect) Ur Phencyclidine Scrn Not Detected (Not Detect) Ur Amphetamines Screen Not Detected (Not Detect) U Benzodiazepines Scrn Not Detected (Not Detect) Urine Cocaine Screen Not Detected (Not Detect) U Marijuana (THC) Screen Not Detected (Not Detect) Ethyl Alcohol < 10 mg/dL Influenza Type A (PCR) (Negative) Influenza Type B (PCR) (Negative) RSV RNA Qual (PCR) (Negative) SARS-CoV-2 RNA (RT-PCR) (Negative) 05/16/23 Range/Units 16:31 WBC (4.8-10.8) X10*3/uL RBC (4.20-5.50) X10*6/uL Hgb (12.0-16.0) g/dl Hct (37.0-47.0) % MCV (80.0-98.0) fL MCH (27.0-33.0) pg MCHC (31.0-35.0) g/dl RDW (11.0-16.0) % Plt Count (160-400) X10*3/uL MPV (9.4-12.3) fL Immature Gran % (Auto) (0.0-0.4) % Neut % (Auto) (45-73) % Lymph % (Auto) (20-40) % Valencia % (Auto) (2-11) % Eos % (Auto) (0-4) % Baso % (Auto) (0-2) % Lymph # (Auto) (1.2-4.9) X10*3/uL Valencia # (Auto) (0.1-1.2) X10*3/uL Eos # (Auto) (0.0-0.4) X10*3/uL Baso # (Auto) (0.0-0.2) X10*3/uL Abs Immat Gran (auto) (0.00-0.03) X10*3/uL Absolute Neuts (auto) (2.0-8.3) x10*3/uL Absolute Nucleated RBC (0.0-0.012) X10*3/uL Nucleated RBC % (auto) (0.0-0.2) /100WBC Sodium (135-145) mmol/L Potassium (3.3-5.1) mmol/L Chloride (96-108) mmol/L Carbon Dioxide (22-29) mmol/L Anion Gap (12-20) BUN (9-16) mg/dL Creatinine (0.5-1.4) mg/dL Estim Creat Clear Calc Estimated GFR Random Glucose (60-115) mg/dL Calcium (8.4-10.2) mg/dL Magnesium (1.6-2.6) mg/dL Total Bilirubin (0.0-1.0) mg/dL Direct Bilirubin (0.0-0.5) mg/dL AST (5-31) U/L ALT (0-31) U/L Alkaline Phosphatase (39-117) U/L Ammonia (13-55) umol/L Troponin I High Sens (<3.5-17.0) ng/L Total Protein (6.5-8.0) g/dL Albumin (3.5-5.0) g/dL Lipase (8-78) U/L Urine Color Urine Appearance Urine pH (5.0-9.0) Ur Specific Leo (1.005-1.025) Urine Protein (Neg-Trace) mg/dL Urine Glucose (UA) (Negative) mg/dL Urine Ketones (Negative) mg/dL Urine Blood (Negative) Urine Nitrite (Negative) Ur Leukocyte Esterase (Negative) Urine RBC (0-2) /HPF Urine WBC (0-5) /HPF Ur Squamous Epith Cells (0-2) /HPF Urine Bacteria (None Seen) Hyaline Casts (0-2) /LPF Urine Opiates Screen (Not Detect) Urine Fentanyl Screen (Not Detect) Ur Barbiturates Screen (Not Detect) Ur Phencyclidine Scrn (Not Detect) Ur Amphetamines Screen (Not Detect) U Benzodiazepines Scrn (Not Detect) Urine Cocaine Screen (Not Detect) U Marijuana (THC) Screen (Not Detect) Ethyl Alcohol mg/dL Influenza Type A (PCR) NEGATIVE (Negative) Influenza Type B (PCR) NEGATIVE (Negative) RSV RNA Qual (PCR) NEGATIVE (Negative) SARS-CoV-2 RNA (RT-PCR) NEGATIVE (Negative) Radiology Impression Discussion of test interpretation with radiology: I have reviewed the radiologist's reading. Radiologist Impression: CT/CT abdomen pelvis w IV con IMPRESSION: 1. Markedly distended urinary bladder to the level of the umbilicus. Mild fullness to the right collecting system and ureter but no obvious renal or ureteric calculi seen. 2. Mild fatty infiltration of the liver. 3. No peripancreatic inflammatory changes or fluid at this time. No pancreatic ductal dilatation. FINDINGS: No acute fractures or dislocations of the cervical spine are seen. Multilevel degenerative changes. Anatomic alignment and positioning of the vertebral bodies and posterior elements is noted. The atlantoaxial joint and craniovertebral articulations are normal without evidence of subluxation. There is no prevertebral soft tissue swelling. The thyroid gland and visualized portions of the lung apices and mediastinum are unremarkable. IMPRESSION: 1. No acute visible fracture or dislocation. 2. Multilevel degenerative changes. FINDINGS: No acute fractures or dislocations of the cervical spine are seen. Multilevel degenerative changes. Anatomic alignment and positioning of the vertebral bodies and posterior elements is noted. The atlantoaxial joint and craniovertebral articulations are normal without evidence of subluxation. There is no prevertebral soft tissue swelling. The thyroid gland and visualized portions of the lung apices and mediastinum are unremarkable. IMPRESSION: 1. No acute visible fracture or dislocation. 2. Multilevel degenerative changes. Dictated By: Miesha Olivera MD XR/XR chest 1V IMPRESSION: Minimal haziness in both lung bases likely atelectasis or scarring similar to previous study. No acute pneumonic consolidation seen. Dictated By: Fernando Woodruff MD External Record Review External record reviewed: Inpatient record, Office record, Outpatient record, Prior outpatient labs, Prior outpatient radiology, Primary care record and Outside ED record Discharge Plan Discharge Clinical Impression: Encephalopathy, Hyponatremia, Hypomagnesemia Patient Disposition: Admitted As Inpatient Prescriptions: No Action (DME) FreeStyle Lite Strips Strip See Rx Instructions .Route Qty: 100 5RF Rx Instructions: Tests 4X/day (DME) blood-glucose meter [FreeStyle Lite Meter] Kit See Rx Instructions .ROUTE .MEDSUPPLY Qty: 1 0RF Rx Instructions: As directed 2x/day metformin 500 mg tablet 500 mg PO BID Qty: 60 1RF (DME) pen needle, diabetic [Unifine Pentips] 32 gauge x 5/32 needle 1 ea miscellaneous TID Qty: 100 1RF Rx Instructions: 4x daily Tresiba FlexTouch U-200 200 unit/mL (3 mL) insulin pen 28 unit subcut DAILY Qty: 9 6RF (DME) FreeStyle Ni 2 Sensor Kit See Rx Instructions .ROUTE .COMPLEX Qty: 2 5RF Dose Instruction: As directed change every 14 days Rx Instructions: As directed change every 14 days lisinopril 10 mg tablet 10 mg PO DAILY Qty: 30 3RF olanzapine [Zyprexa] 20 mg tablet 20 mg PO BEDTIME 30 Days Qty: 30 0RF aspirin [Adult Aspirin Regimen] 81 mg tablet,delayed release (DR/EC) 81 mg PO DAILY 30 Days Qty: 30 11RF acetaminophen [Tylenol Extra Strength] 500 mg Tablet 1,000 mg PO Q8H PRN (Reason: Pain) 30 Days Qty: 120 0RF (DME) lancets [FreeStyle Lancets] 28 gauge misc 1 gauge topical TID Qty: 100 11RF lorazepam 0.5 mg tablet 1 tab PO DAILY PRN (Reason: Anxiety) metoprolol tartrate 25 mg tablet 1 tab PO BID [id number]-[id number] [Fioricet] 50-300-40 mg capsule 1 cap PO Q4-6H PRN (Reason: headache) Qty: 14 0RF ketotifen fumarate 0.025 % (0.035 %) drops 1 drp ophthalmic (eye) BID Rx Instructions: administer at least 8 hours apart sertraline 100 mg tablet PO alcohol swabs [Alcohol Pads] Pads, Medicated topical hydrocortisone [Proctozone-HC] 2.5 % cream with perineal applicator FL ammonium lactate 12 % lotion topical insulin aspart U-100 [Novolog FlexPen U-100 Insulin] 100 unit/mL (3 mL) insulin pen See Rx Instructions subcut TID Qty: 15 6RF Rx Instructions: inject 6 units if POC>150 and 10 units if POC>250 subcutaneously 3 times a day; (DME) FreeStyle Ni 2 [place] Misc See Rx Instructions .Route Qty: 1 0RF Rx Instructions: As directed pantoprazole 40 mg tablet,delayed release (DR/EC) PO docusate sodium 100 mg capsule 200 mg PO BEDTIME Qty: 180 3RF sennosides [Natural Senna Laxative] 8.6 mg tablet 8.6 mg PO BEDTIME Qty: 90 3RF aripiprazole 20 mg tablet PO buspirone 10 mg tablet 10 mg PO TID
[2023-05-16 10:49] VITALS: BP 175/75; RESP 18; O2SAT 97; BMI 25.9
--- NOTE | 2023-05-16 10:57 | ECG_ITS ---
Test Reason : HYPERTENSION Blood Pressure : / mmHG Vent. Rate : 069 BPM Atrial Rate : 069 BPM P-R Int : 170 ms QRS Dur : 132 ms QT Int : 432 ms P-R-T Axes : 073 -54 044 degrees QTc Int : 462 ms Normal sinus rhythm Right bundle branch block Left anterior fascicular block Bifascicular block Minimal voltage criteria for LVH, may be normal variant ( R in aVL ) Abnormal ECG When compared with ECG of 14-OCT-2022 17:00, Premature atrial complexes are no longer Present Referred By: Veronica Jameson Electronically Signed By:TOMASA TUTTLE
[2023-05-16 11:51] LABS: MANUAL DIFF FLAG NO
--- NOTE | 2023-05-16 11:53 | PC.NURSE ---
pt awake and alert, can give name, , month, and name of president. cannot state year. 20G IV placed to LAC, labs drawn and sent. pt resting quietly on stretcher, in and out of sleep. rr even/unlabored. call vee within reach. plan of care ongoing.
[2023-05-16 11:54] LABS: Appearance Urine Clear; Color Urine Yellow; Glucose Urine UA Negative (Negative); Leukocyte Esterase Urine Negative (Negative); Nitrite Urine Negative (Negative); Specific Gravity - Urine <= 1.005 (1.005-1.025); UMIC TRIGGER UACC YES; Urine Blood Negative (Negative); Urine Ketones Negative (Negative); Urine Protein 30 (1+) mg/dL (Neg-Trace)
[2023-05-16 11:58] LABS: Bacteria Urine None Seen (None Seen); Basophils Absolute Auto 0.1 X10*3/uL (0.0-0.2); Basophils Percent Auto 0.4 % (0-2); Eosinophils Absolute Auto 0.1 X10*3/uL (0.0-0.4); Eosinophils Percent Auto 0.8 % (0-4); Hematocrit 37.2 % (37.0-47.0); Hemoglobin 12.7 g/dl (12.0-16.0); Hyaline Casts Urine 0-2 /LPF (0-2); Imm Gran Abs Auto 0.05 X10*3/uL (0.00-0.03); Imm Gran Pct Auto 0.3 % (0.0-0.4); Lymphocytes Absolute Auto 4.9 X10*3/uL (1.2-4.9); Lymphocytes Percent Auto 30.2 % (20-40); Mean Corpuscular HGB Conc 34.1 g/dl (31.0-35.0); Mean Corpuscular Hemoglobin 27.5 pg (27.0-33.0); Mean Corpuscular Volume 80.5 fL (80.0-98.0); Mean Platelet Volume 11.4 fL (9.4-12.3); Monocytes Absolute Auto 1.2 X10*3/uL (0.1-1.2); Monocytes Percent Auto 7.4 % (2-11); Neutrophils Absolute Auto 9.9 x10*3/uL (2.0-8.3); Neutrophils Percent Auto 60.9 % (45-73); Platelet Count 197 X10*3/uL (160-400); RBC Urine 0-2 /HPF (0-2); Red Blood Count 4.62 X10*6/uL (4.20-5.50); Red Cell Distribution Width 13.2 % (11.0-16.0); Squamous Epithelial Cell Urine 0-2 /HPF (0-2); WBC Urine 0-5 /HPF (0-5); White Blood Count 16.2 X10*3/uL (4.8-10.8)
[2023-05-16 12:03] LABS: Amphetamine Screen Urine Not Detected (Not Detect); Barbiturates, Urine Not Detected (Not Detect); Benzodiazepines Screen Urine Not Detected (Not Detect); Cannabinoid Screen Urine Not Detected (Not Detect); Cocaine Screen Urine Not Detected (Not Detect); Fentanyl, urine Not Detected (Not Detect); Opiate Screen Urine Not Detected (Not Detect); Phencyclidine Screen Urine Not Detected (Not Detect)
[2023-05-16 12:07] LABS: Ethanol < 10 mg/dL
[2023-05-16 12:13] LABS: Troponin-I High Sensitivity 8.5 ng/L (<3.5-17.0)
[2023-05-16 12:15] LABS: Alanine Aminotransferase 23 U/L (0-31); Alkaline Phosphatase 94 U/L (39-117); Anion Gap 12 (12-20); Aspartate Amino Transferase 19 U/L (5-31); Bilirubin Direct 0.1 mg/dL (0.0-0.5); Bilirubin Total 0.3 mg/dL (0.0-1.0); Blood Urea Nitrogen 6 mg/dL (9-16); Calcium 9.5 mg/dL (8.4-10.2); Carbon Dioxide 24 mmol/L (22-29); Chloride 91 mmol/L (96-108); Creatinine Clr Calc Pharmacy 63.2; Estimated Glomerular Filt Rate > 60; Glucose Random 190 mg/dL (60-115); Lipase 296 U/L (8-78); Potassium 3.8 mmol/L (3.3-5.1); Sodium 123 mmol/L (135-145); Total Protein 7.1 g/dL (6.5-8.0)
[2023-05-16 12:18] LABS: Magnesium 1.3 mg/dL (1.6-2.6)
[2023-05-16] MEDS: 0.9 % Sodium Chloride 1,000 ML 999 ML IV (13:59)
[2023-05-16] MEDS: Magnesium Sulfate/H2O 2 GM/50 ML PIGGYBACK IV (14:03)
[2023-05-16 14:19] LABS: Ammonia 32 umol/L (13-55)
--- NOTE | 2023-05-16 14:21 | PC.NURSE ---
2nd line access obtained, ammonia redrawn, NS and Mg infusing per order
[2023-05-16 14:35] VITALS: TEMP 37.1
[2023-05-16 15:44] VITALS: BP 142/63; PULSE 63; RESP 16; TEMP 36.1; O2SAT 94
--- NOTE | 2023-05-16 16:21 | PC.NURSE ---
pt sleeping soundly in stretcher. still awaiting for pt home health aide/visiting nurse to call for information on pt.
[2023-05-16] MEDS: iohexoL 350 MG/ML 100 ML INFUS..BTL IV (17:00)
[2023-05-16 17:20] LABS: Influenza A PCR NEGATIVE (Negative); Influenza B PCR NEGATIVE (Negative); Resp Syncy Virus RNA Qual PCR NEGATIVE (Negative); SARS COV2 PCR INHOUSE NEGATIVE (Negative)
--- NOTE | 2023-05-16 17:52 | PM.IMHP ---
History of Present Illness Date of Service: 05/16/23 Chief Complaint: Altered mental status 68 year old female with Depression with anxiety, Schizoaffective disorder, PTSD (post-traumatic stress disorder), Dementia, CAD (coronary artery disease), Type 2 diabetes mellitus with chronic kidney disease, Chronic kidney disease, stage 3 unspecified, Type 2 diabetes mellitus with diabetic polyneuropathy, Essential hypertension, Dyslipidemia who brought to the ED after her [employer] noted her to have high blood pressure and confused. She tells me she lives alone and has a DIRECTOR [employer] and had morning and evening nurses coming every dorian, she is not able to tell me why she is here but is aware that she is [facility]. I spoke to her son Fahad who colaborated her story that she lives alone and has [employer] and daily visiting nurses. Her son states that she saw her 2 days ago and she seemed ok other her saying that she wasn't sleeping because she has been drinking coffee at night. Work up has included UA showing no infection, CT head and cervical spine unremarkable. BMP show sodium of 123 and magnesium is only 1.3, lipase of 296 no abdominal pain--labs were done at 11 and not yet repeated. Else she has no diarrhea, no fever or chils, no chest pain, no sob, no dizziness Review of Systems Review of Systems: Gen: no fever Resp: no sob, no cough CV: no chest, no WALSH, no leg edema GI: No n/v, no abd pain Neuro: confusion FOR[facility] Medical History Dermatophytosis Dermatitis Joint pain Depression with anxiety Schizoaffective disorder PTSD (post-traumatic stress disorder) Dementia Smoking CAD (coronary artery disease) Type 2 diabetes mellitus with chronic kidney disease Chronic kidney disease, stage 3 unspecified Type 2 diabetes mellitus with diabetic polyneuropathy Essential hypertension Dyslipidemia Diabetes mellitus with hyperglycemia Family History Father No problems noted. Mother No problems noted. Surgical History Hx of colonoscopy Hx of cataract surgery Hx of tubal ligation Hx of section Social History Household Members: None Household Members Other:: has [facility] Services Housing: Apartment Do you presently have visiting nurse or other home services: No Alcohol intake: former Patient Tobacco Use Status: Current everyday Tobacco user Tobacco use type: Cigarette Cigarette Packs Per Day: 1 Cigarettes Per Day: 20.0 Second Hand Smoke Exposure: No Advance Directives: Yes Advance Directives on File: Yes Advance Directives Date on File: 09/30/20 service: No Sexual orientation: Straight/Heterosexual Meds Allergies Allergy/AdvReac Type Severity Reaction Status Date / Time duloxetine [Cymbalta] Allergy Unknown Unknown Verified 04/15/23 11:18 hydroxyzine Allergy Unknown unknown Verified 04/15/23 11:18 risperidone Allergy Unknown Unknown Verified 04/15/23 11:18 trazodone Allergy Unknown Unknown Verified 04/15/23 11:18 quetiapine [From SEROQUEL] AdvReac Severe Acute Verified 04/15/23 11:18 Dystonic reaction Active Medications: Current Medications Dextrose (Dextrose 50 % 25 Gm/50 Ml Syringe) 25 gm IVPUSH Q15M PRN; Protocol PRN Reason: per Hypoglycemia Standing Ord. Glucose (Glucose Gel 15 Gm Gel..Gram.) 15 gm PO Q15M PRN; Protocol PRN Reason: per Hypoglycemia Standing Ord. Insulin Human Lispro (Insulin Lispro 100 Unit/Ml 3 Ml Vial) 0 unit SUBCUT [facility]; Protocol Home Medications Medication Instructions Recorded Confirmed Last Taken Type lorazepam 0.5 mg tablet 1 tab PO BEDTIME PRN Anxiety 11/07/21 05/16/23 Unknown History metoprolol tartrate 25 mg tablet 1 tab PO BID 11/07/21 05/16/23 Unknown History pantoprazole 40 mg tablet,delayed 40 mg PO DAILY 05/19/22 05/16/23 Unknown History release ammonium lactate 12 % lotion 1 appl topical DAILY 06/16/22 05/16/23 Unknown History hydrocortisone 2.5 % topical cream 1 appl [place] BID PRN Hemorrhoids 06/16/22 05/16/23 Unknown History with perineal applicator (Proctozone-HC) sertraline 100 mg tablet 150 mg PO DAILY 06/16/22 05/16/23 Unknown History aripiprazole 20 mg tablet 20 mg PO BEDTIME 09/07/22 05/16/23 Unknown History buspirone 10 mg tablet 10 mg PO TID 09/07/22 05/16/23 Unknown History atorvastatin 80 mg tablet 80 mg PO DAILY 05/16/23 05/16/23 Unknown History clotrimazole 1 % topical cream 1 appl topical BID PRN Rash 05/16/23 05/16/23 Unknown History dulaglutide 0.75 mg/0.5 mL 0.75 mg subcut QWEEK 05/16/23 05/16/23 Unknown History subcutaneous pen injector (Trulicity) gabapentin 100 mg capsule 200 mg PO BID 05/16/23 05/16/23 Unknown History ibuprofen 800 mg tablet 800 mg PO TID PRN Pain 05/16/23 05/16/23 Unknown History insulin aspart U-100 100 unit/mL 6 unit subcut BIDAC PRN BG 200-250 05/16/23 05/16/23 Unknown History (3 mL) subcutaneous pen insulin aspart U-100 100 unit/mL 10 unit subcut BID PRN BG . 250 05/16/23 05/16/23 Unknown History (3 mL) subcutaneous pen (Novolog FlexPen U-100 Insulin aspart) insulin degludec 200 unit/mL (3 28 unit subcut BEDTIME 05/16/23 05/16/23 Unknown History mL) subcutaneous pen (Tresiba FlexTouch U-200 insulin) lamotrigine 200 mg tablet 200 mg PO DAILY 05/16/23 05/16/23 Unknown History multivitamin 1 tab PO DAILY 05/16/23 05/16/23 Unknown History polyvinyl alcohol 1.4 % eye drops 1 drp ophthalmic (eye) BID PRN Dry 05/16/23 05/16/23 Unknown History (Artificial Tears (polyvinyl Eye(S) alcohol)) zinc oxide 20 % topical ointment 1 appl topical BID PRN Rash 05/16/23 05/16/23 Unknown History INTERGLUTERAL Physical Exam Vital Signs and Narrative: Vital Signs: Last Vital Signs Temp 97 F 05/16/23 15:44 Pulse 63 05/16/23 15:44 Resp 16 05/16/23 15:44 BP 142/63 H 05/16/23 15:44 Pulse Ox 94 05/16/23 15:44 O2 Del Method Room Air 05/16/23 15:44 BMI result Body Mass Index 25.9 Constitutional: Alert, oriented to self, place and year, no agiation Mental Status: Oriented to person, place and time. Eyes: Pupils are equal, round and reactive to light. Ear, Nose and Throat: Oropharynx clear, mucous membranes moist. Ears and nose without deformities. Respiratory: Clear to auscultation. No wheezing, rales or rhonchi. Cardiovascular: S1 S2 regular. No murmurs, rubs or gallops. Gastrointestinal: Abdomen soft, non-tender, non-distended. Normal bowel sounds.? Neurologic: Cranial nerves II-XII grossly intact. No focal neurological deficits. Moves all extremities spontaneously.? Skin: No rashes or lesions.? Musculoskeletal: No cyanosis or clubbing. Psychiatric: Normal mood and affect? Results Labs 05/17/23 06:07 05/17/23 08:40 Labs: Laboratory Results - last 24 hr 05/16/23 05/16/23 05/16/23 11:43 11:44 14:03 MCV 80.5 MCH 27.5 MCHC 34.1 RDW 13.2 Plt Count 197 MPV 11.4 Immature Gran % (Auto) 0.3 Neut % (Auto) 60.9 Lymph % (Auto) 30.2 [place] % (Auto) 7.4 Eos % (Auto) 0.8 Baso % (Auto) 0.4 Lymph # (Auto) 4.9 [place] # (Auto) 1.2 Eos # (Auto) 0.1 Baso # (Auto) 0.1 Abs Immat Gran (auto) 0.05 H Absolute Neuts (auto) 9.9 H Absolute Nucleated RBC 0.000 Nucleated RBC % (auto) 0.0 Anion Gap 12 Estim Creat Clear Calc 63.2 Estimated GFR > 60 Random Glucose 190 H Calcium 9.5 Magnesium 1.3 L* Total Bilirubin 0.3 Direct Bilirubin 0.1 AST 19 ALT 23 Alkaline Phosphatase 94 Ammonia 32 Troponin I High Sens 8.5 D Total Protein 7.1 Albumin 4.0 Lipase 296 H Urine Color Yellow Urine Appearance Clear Urine pH 7.0 Ur Specific [place] <= 1.005 Urine Protein 30 (1+) H Urine Glucose (UA) Negative Urine Ketones Negative Urine Blood Negative Urine Nitrite Negative Ur Leukocyte Esterase Negative Urine RBC 0-2 Urine WBC 0-5 Ur Squamous Epith Cells 0-2 Urine Bacteria None Seen Hyaline Casts 0-2 Urine Opiates Screen Not Detected Urine Fentanyl Screen Not Detected Ur Barbiturates Screen Not Detected Ur Phencyclidine Scrn Not Detected Ur Amphetamines Screen Not Detected U Benzodiazepines Scrn Not Detected Urine Cocaine Screen Not Detected U Marijuana (THC) Screen Not Detected Ethyl Alcohol < 10 Influenza Type A (PCR) Influenza Type B (PCR) RSV RNA Qual (PCR) SARS-CoV-2 RNA (RT-PCR) 05/16/23 16:31 MCV MCH MCHC RDW Plt Count MPV Immature Gran % (Auto) Neut % (Auto) Lymph % (Auto) [place] % (Auto) Eos % (Auto) Baso % (Auto) Lymph # (Auto) [place] # (Auto) Eos # (Auto) Baso # (Auto) Abs Immat Gran (auto) Absolute Neuts (auto) Absolute Nucleated RBC Nucleated RBC % (auto) Anion Gap Estim Creat Clear Calc Estimated GFR Random Glucose Calcium Magnesium Total Bilirubin Direct Bilirubin AST ALT Alkaline Phosphatase Ammonia Troponin I High Sens Total Protein Albumin Lipase Urine Color Urine Appearance Urine pH Ur Specific [place] Urine Protein Urine Glucose (UA) Urine Ketones Urine Blood Urine Nitrite Ur Leukocyte Esterase Urine RBC Urine WBC Ur Squamous Epith Cells Urine Bacteria Hyaline Casts Urine Opiates Screen Urine Fentanyl Screen Ur Barbiturates Screen Ur Phencyclidine Scrn Ur Amphetamines Screen U Benzodiazepines Scrn Urine Cocaine Screen U Marijuana (THC) Screen Ethyl Alcohol Influenza Type A (PCR) NEGATIVE Influenza Type B (PCR) NEGATIVE RSV RNA Qual (PCR) NEGATIVE SARS-CoV-2 RNA (RT-PCR) NEGATIVE Imaging Radiologist's Impressions: Impressions Chest X-Ray 05/16/23 12:15 IMPRESSION: Minimal haziness in both lung bases likely atelectasis or scarring similar to previous study. No acute pneumonic consolidation seen. Cervical Spine CT 05/16/23 13:00 IMPRESSION: 1. No acute intracranial pathology. 2. Chronic white matter small vessel ischemic changes. EXAMINATION: Noncontrast CT scan of the cervical spine. INDICATION: Altered mental status COMPARISON: CT cervical spine from 10/14/2022 TECHNIQUE: Helical, multidetector axial images were obtained from the occiput to the upper thorax. Coronal and sagittal reformats of the cervical spine were provided for interpretation. DLP: 1236 mGy-cm FINDINGS: No acute fractures or dislocations of the cervical spine are seen. Multilevel degenerative changes. Anatomic alignment and positioning of the vertebral bodies and posterior elements is noted. The atlantoaxial joint and craniovertebral articulations are normal without evidence of subluxation. There is no prevertebral soft tissue swelling. The thyroid gland and visualized portions of the lung apices and mediastinum are unremarkable. IMPRESSION: 1. No acute visible fracture or dislocation. 2. Multilevel degenerative changes. Head CT 05/16/23 13:00 IMPRESSION: 1. No acute intracranial pathology. 2. Chronic white matter small vessel ischemic changes. EXAMINATION: Noncontrast CT scan of the cervical spine. INDICATION: Altered mental status COMPARISON: CT cervical spine from 10/14/2022 TECHNIQUE: Helical, multidetector axial images were obtained from the occiput to the upper thorax. Coronal and sagittal reformats of the cervical spine were provided for interpretation. DLP: 1236 mGy-cm FINDINGS: No acute fractures or dislocations of the cervical spine are seen. Multilevel degenerative changes. Anatomic alignment and positioning of the vertebral bodies and posterior elements is noted. The atlantoaxial joint and craniovertebral articulations are normal without evidence of subluxation. There is no prevertebral soft tissue swelling. The thyroid gland and visualized portions of the lung apices and mediastinum are unremarkable. IMPRESSION: 1. No acute visible fracture or dislocation. 2. Multilevel degenerative changes. Abdomen/Pelvis CT 05/16/23 16:59 IMPRESSION: 1. Markedly distended urinary bladder to the level of the umbilicus. Mild fullness to the right collecting system and ureter but no obvious renal or ureteric calculi seen. 2. Mild fatty infiltration of the liver. 3. No peripancreatic inflammatory changes or fluid at this time. No pancreatic ductal dilatation. Assessment and Plan (1) Hypomagnesemia: Status: Acute (2) Hyponatremia: Status: Acute (3) Encephalopathy: Status: Acute Plan 68 year old female with Depression with anxiety, Schizoaffective disorder, PTSD (post-traumatic stress disorder), Dementia, CAD (coronary artery disease), Type 2 diabetes mellitus with chronic kidney disease, Chronic kidney disease, stage 3 unspecified, Type 2 diabetes mellitus with diabetic polyneuropathy, Essential hypertension here with confusion and found to have HypOnatremia, Hypomagnesemia Metabolic encephalopathy--likely d/t hyponatremia, no Uti, she seems better than what was described previously -treat underlying issues HypOnatremia--could be related to primaryly polydypsia or SSRI, she has received NS -Hold SSRI -repeat Sodium level and q6 -check urine sodium, urine osmo, serum osmo -fluid restriction -Nehrology consult Leukocytosis--no obvious source of infection and pattern seem chronic, was closely monitor Hypomagenesmia--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 Quality Stroke Does the patient have a stroke diagnosis?: No VTE Prior VTE?: No VTE Risk Level:: Medical - moderate - high VTE Device Contraindication: N/A - Device Ordered VTE Drug Contraindication: N/A - Med Ordered
[2023-05-16 18:54] VITALS: BP 108/51; PULSE 63; RESP 16; TEMP 36.2; O2SAT 92
--- NOTE | 2023-05-16 18:55 | MHC.EDTECH ---
RN aware of bp
[2023-05-16 19:17] LABS: Anion Gap 11 (12-20); Carbon Dioxide 30 mmol/L (22-29); Chloride 99 mmol/L (96-108); Magnesium 2.1 mg/dL (1.6-2.6); Potassium 4.1 mmol/L (3.3-5.1); Sodium 136 mmol/L (135-145)
[2023-05-16 19:22] LABS: Osmolality, Serum 284 mosm/kg (281-305)
[2023-05-16] MEDS: Enoxaparin Sodium 40 MG/0.4 ML SYRINGE SUBCUT (20:15)
[2023-05-16] MEDS: Dextrose 5 % 1,000 ML 100 ML IVCONT (20:40)
--- NOTE | 2023-05-16 20:51 | PHA.MEDREC ---
Pharmacy Consult ? Medication Reconciliation Pharmacy has completed the medication reconciliation. Attempted to speak with [facility] however they never called back. Utilized list from [facility] company and claim history to determine medicaitons at home. Lamotrigeine 200 mg BID on home list but prescription is for daily. Gabapentin on the list is 100 mg BID however the prescription is for 200 mg BID. Patient has not filled lorazepam 0.5 mg since 02/19 therefore left as prn medication as it is on [facility] list. Jillian Rahman, PharmD
[2023-05-16 21:17] LABS: Glucose, Whole Blood 126 mg/dL (60-115)
[2023-05-16 22:23] LABS: Anion Gap 13 (12-20); Carbon Dioxide 25 mmol/L (22-29); Chloride 101 mmol/L (96-108); Potassium 4.1 mmol/L (3.3-5.1); Sodium 135 mmol/L (135-145)
[2023-05-16 22:54] LABS: Glucose, Whole Blood 162 mg/dL (60-115)
[2023-05-17] VITALS (8 sets, daily range): BP systolic 117–149; BP diastolic 24–61; PULSE 67–77; RESP 14–23; TEMP 36.3–37.1; O2SAT 92–95
[2023-05-17] MEDS: Acetaminophen 325 MG TABLET 650 MG PO (05:53)
[2023-05-17] MEDS: Dextrose 5 % 1,000 ML 100 ML IVCONT (05:56)
[2023-05-17 06:19] LABS: Hematocrit 32.2 % (37.0-47.0); Hemoglobin 10.7 g/dl (12.0-16.0); Mean Corpuscular HGB Conc 33.2 g/dl (31.0-35.0); Mean Corpuscular Hemoglobin 27.4 pg (27.0-33.0); Mean Corpuscular Volume 82.4 fL (80.0-98.0); Mean Platelet Volume 11.9 fL (9.4-12.3); Platelet Count 169 X10*3/uL (160-400); Red Blood Count 3.91 X10*6/uL (4.20-5.50); Red Cell Distribution Width 13.9 % (11.0-16.0)
[2023-05-17 06:44] LABS: Anion Gap 12 (12-20); Blood Urea Nitrogen 5 mg/dL (9-16); Calcium 8.7 mg/dL (8.4-10.2); Carbon Dioxide 21 mmol/L (22-29); Chloride 86 mmol/L (96-108); Creatinine Clr Calc Pharmacy 59.2; Estimated Glomerular Filt Rate > 60; Glucose Random 718 mg/dL (60-115); Potassium 3.9 mmol/L (3.3-5.1); Sodium 115 mmol/L (135-145)
[2023-05-17 07:26] LABS: Glucose, Whole Blood 227 mg/dL (60-115)
[2023-05-17 07:26] LABS: Glucose, Whole Blood 231 mg/dL (60-115)
[2023-05-17 07:48] LABS: Glucose, Whole Blood 224 mg/dL (60-115)
[2023-05-17] MEDS: Insulin Lispro 100 UNIT/ML 3 ML VIAL SUBCUT ×3 (08:22→21:53)
[2023-05-17 09:05] LABS: Anion Gap 13 (12-20); Blood Urea Nitrogen 5 mg/dL (9-16); Calcium 9.5 mg/dL (8.4-10.2); Carbon Dioxide 24 mmol/L (22-29); Chloride 93 mmol/L (96-108); Creatinine Clr Calc Pharmacy 62.3; Estimated Glomerular Filt Rate > 60; Glucose Random 332 mg/dL (60-115); Potassium 4.4 mmol/L (3.3-5.1); Sodium 126 mmol/L (135-145)
[2023-05-17] MEDS: 0.9 % Sodium Chloride Flush 3 ML SYRINGE IVFLUSH ×3 (09:31→22:46)
[2023-05-17] MEDS: Metoprolol Tartrate 25 MG TABLET PO ×2 (09:33→21:39)
[2023-05-17] MEDS: Multivitamin TABLET 1 TAB PO (09:33)
[2023-05-17] MEDS: Atorvastatin Calcium 80 MG TABLET PO (09:33)
[2023-05-17] MEDS: busPIRone HCl 10 MG TABLET PO ×3 (09:33→21:39)
[2023-05-17] MEDS: lamoTRIgine 100 MG TABLET 200 MG PO (09:33)
[2023-05-17] MEDS: Sertraline HCL 50 MG TABLET 150 MG PO (09:33)
[2023-05-17] MEDS: Gabapentin 100 MG CAPSULE 200 MG PO ×2 (09:33→21:39)
[2023-05-17] MEDS: lisinopriL 10 MG TABLET PO (09:34)
[2023-05-17] MEDS: Insulin Glargine,Hum.rec.anlog 100 UNIT/ML 10 ML VIAL 15 UNIT SUBCUT (09:34)
[2023-05-17] MEDS: Aspirin Enteric Coated 81 MG TABLET.DR PO (09:34)
[2023-05-17] MEDS: metFORMIN HCl 500 MG TABLET PO ×2 (09:34→21:38)
[2023-05-17] MEDS: Ammonium Lactate 12 % Lotion 226 GM BOTTLE 1 APPL TOPICAL (09:38)
--- NOTE | 2023-05-17 10:00 | HO.PM.IMPN ---
Subjective Subjective Date of Service: 05/17/23 Interval History: F/u on on hyponatremia. Sodium went from 123 fom 11.45 yesterday to 136 by 6 PM and was given IVF D5 w and DDAVP given rapid correction. This morning lab drawa reported sodium of 115 and glucose of 700, this was drawn over the line and finger stick only show glucose of 224, repeat BMP show sodium of 126 and glucose 332. She feels otherwise well, no confusion Physical Exam Vital Signs: Vital Signs: Last Vital Signs Temp 97.7 F 05/17/23 07:41 Pulse 75 05/17/23 08:36 Resp 22 H 05/17/23 07:41 BP 149/61 H 05/17/23 08:36 Pulse Ox 94 05/17/23 08:36 O2 Del Method Room Air 05/17/23 07:41 BMI result Body Mass Index 25.9 General: AO X 3, no acute distress Resp: CTA bilateral CVS: S1,S2,RRR GI: +BS, NT, no distention Skin: No rash Neuro: motor grossly intact Psych: appropriate affect Objective Data Active Medications Acetaminophen (Acetaminophen 325 Mg Tablet) 650 mg PO Q6H PRN PRN Reason: Pain, Mild (Pain Scale 1-3) Last Admin: 05/17/23 05:53 Dose: 650 mg Documented By: SABINA Acetaminophen/Butalbital/Caffeine (Butalb/Acetamin/Caff 50/325/40 Tablet) 1 tab PO Q4H PRN PRN Reason: headache Aripiprazole (Aripiprazole 20 Mg Tablet) 20 mg PO BEDTIME [facility] Aspirin (Aspirin Enteric Coated 81 Mg Tablet.) 81 mg PO DAILY [facility] Last Admin: 05/17/23 09:34 Dose: 81 mg Documented By: NESSA Atorvastatin Calcium (Atorvastatin Calcium 80 Mg Tablet) 80 mg PO DAILY [facility] Last Admin: 05/17/23 09:33 Dose: 80 mg Documented By: NESSA Buspirone HCl (Buspirone Hcl 10 Mg Tablet) 10 mg PO TID [facility] Last Admin: 05/17/23 09:33 Dose: 10 mg Documented By: NESSA Clotrimazole (Clotrimazole 1 % Cream 15 Gm Tube) 1 appl TOPICAL BID PRN; Protocol PRN Reason: Rash Dextrose (Dextrose 50 % 25 Gm/50 Ml Syringe) 25 gm IVPUSH Q15M PRN; Protocol PRN Reason: per Hypoglycemia Standing Ord. Docusate Sodium (Docusate Sodium 100 Mg Capsule) 200 mg PO BEDTIME [facility] Enoxaparin Sodium (Enoxaparin Sodium 40 Mg/0.4 Ml Syringe) 40 mg SUBCUT Q24H [facility] Last Admin: 05/16/23 20:15 Dose: 40 mg Documented By: LEONOR Gabapentin (Gabapentin 100 Mg Capsule) 200 mg PO BID [facility] Last Admin: 05/17/23 09:33 Dose: 200 mg Documented By: NESSA Glucose (Glucose Gel 15 Gm Gel..Gram.) 15 gm PO Q15M PRN; Protocol PRN Reason: per Hypoglycemia Standing Ord. Hydrocortisone (Hydrocortisone 2.5 % Rectal Cr 30 Gm Tube) 1 appl [place] BID PRN PRN Reason: Hemorrhoids Insulin Glargine (Insulin Glargine,Hum.Rec.Anlog 100 Unit/Ml 10 Ml Vial) 15 unit SUBCUT DAILY [facility] Last Admin: 05/17/23 09:34 Dose: 15 unit Documented By: NESSA Insulin Glargine (Insulin Glargine,Hum.Rec.Anlog 100 Unit/Ml 10 Ml Vial) 20 unit SUBCUT BEDTIME [facility] Insulin Human Lispro (Insulin Lispro 100 Unit/Ml 3 Ml Vial) 0 unit SUBCUT QIDACHS [facility]; Protocol Last Admin: 05/17/23 08:22 Dose: 4 unit Documented By: NESSA Lactic Acid (Ammonium Lactate 12 % Lotion 226 Gm Bottle) 1 appl TOPICAL DAILY [facility]; Protocol Last Admin: 05/17/23 09:38 Dose: 1 appl Documented By: NESSA Lamotrigine (Lamotrigine 100 Mg Tablet) 200 mg PO DAILY [facility] Last Admin: 05/17/23 09:33 Dose: 200 mg Documented By: NESSA Lisinopril (Lisinopril 10 Mg Tablet) 10 mg PO DAILY [facility]; Protocol Last Admin: 05/17/23 09:34 Dose: 10 mg Documented By: NESSA Lorazepam (Lorazepam 0.5 Mg Tablet) 0.5 mg PO BEDTIME PRN PRN Reason: Anxiety Magnesium Hydroxide (Milk Of Magnesia 30 Ml Oral.Susp) 30 ml PO DAILY PRN PRN Reason: Constipation Melatonin (Melatonin 3 Mg Tablet) 3 mg PO BEDTIME PRN PRN Reason: Insomnia Metformin HCl (Metformin Hcl 500 Mg Tablet) 500 mg PO BID [facility] Last Admin: 05/17/23 09:34 Dose: 500 mg Documented By: NESSA Metoprolol Tartrate (Metoprolol Tartrate 25 Mg Tablet) 25 mg PO BID [facility]; Protocol Last Admin: 05/17/23 09:33 Dose: 25 mg Documented By: NESSA Multivitamins/Vitamin C (Multivitamin Tablet) 1 tab PO DAILY [facility] Last Admin: 05/17/23 09:33 Dose: 1 tab Documented By: NESSA Non-Formulary Medication (Dulaglutide [Trulicity]) 0.75 mg SUBCUT QWEEK [facility] Omeprazole (Omeprazole 20 Mg Capsule.Dr) 20 mg PO DAILY@0630 [facility] Senna (Sennosides 8.6 Mg Tablet) 8.6 mg PO BEDTIME [facility] Sertraline HCl (Sertraline Hcl 50 Mg Tablet) 150 mg PO DAILY [facility] Last Admin: 05/17/23 09:33 Dose: 150 mg Documented By: NESSA Sodium Chloride (0.9 % Sodium Chloride Flush 3 Ml Syringe) 3 ml IVFLUSH QSHIFT [facility] Last Admin: 05/17/23 09:31 Dose: 3 ml Documented By: NESSA Zinc Oxide (Zinc Oxide 20% Ointment 28.35 Gm Tube) 1 appl TOPICAL BID PRN; Protocol PRN Reason: Rash INTERGLUTERAL Labs 05/17/23 06:07 05/17/23 08:40 Labs: Laboratory Results - last 24 hr 05/16/23 05/16/23 05/16/23 11:43 11:44 14:03 MCV 80.5 MCH 27.5 MCHC 34.1 RDW 13.2 Plt Count 197 MPV 11.4 Immature Gran % (Auto) 0.3 Neut % (Auto) 60.9 Lymph % (Auto) 30.2 [place] % (Auto) 7.4 Eos % (Auto) 0.8 Baso % (Auto) 0.4 Lymph # (Auto) 4.9 [place] # (Auto) 1.2 Eos # (Auto) 0.1 Baso # (Auto) 0.1 Abs Immat Gran (auto) 0.05 H Absolute Neuts (auto) 9.9 H Absolute Nucleated RBC 0.000 Nucleated RBC % (auto) 0.0 Hold Purple Top Anion Gap 12 Estim Creat Clear Calc 63.2 Estimated GFR > 60 POC Glucose Random Glucose 190 H Osmolality Calcium 9.5 Magnesium 1.3 L* Total Bilirubin 0.3 Direct Bilirubin 0.1 AST 19 ALT 23 Alkaline Phosphatase 94 Ammonia 32 Troponin I High Sens 8.5 D Total Protein 7.1 Albumin 4.0 Lipase 296 H Urine Color Yellow Urine Appearance Clear Urine pH 7.0 Ur Specific [place] <= 1.005 Urine Protein 30 (1+) H Urine Glucose (UA) Negative Urine Ketones Negative Urine Blood Negative Urine Nitrite Negative Ur Leukocyte Esterase Negative Urine RBC 0-2 Urine WBC 0-5 Ur Squamous Epith Cells 0-2 Urine Bacteria None Seen Hyaline Casts 0-2 Urine Opiates Screen Not Detected Urine Fentanyl Screen Not Detected Ur Barbiturates Screen Not Detected Ur Phencyclidine Scrn Not Detected Ur Amphetamines Screen Not Detected U Benzodiazepines Scrn Not Detected Urine Cocaine Screen Not Detected U Marijuana (THC) Screen Not Detected Ethyl Alcohol < 10 Influenza Type A (PCR) Influenza Type B (PCR) RSV RNA Qual (PCR) SARS-CoV-2 RNA (RT-PCR) 05/16/23 05/16/23 05/16/23 16:31 18:55 21:15 MCV MCH MCHC RDW Plt Count MPV Immature Gran % (Auto) Neut % (Auto) Lymph % (Auto) [place] % (Auto) Eos % (Auto) Baso % (Auto) Lymph # (Auto) [place] # (Auto) Eos # (Auto) Baso # (Auto) Abs Immat Gran (auto) Absolute Neuts (auto) Absolute Nucleated RBC Nucleated RBC % (auto) Hold Purple Top Anion Gap 11 L Estim Creat Clear Calc Estimated GFR POC Glucose 126 H Random Glucose Osmolality 284 Calcium Magnesium 2.1 Total Bilirubin Direct Bilirubin AST ALT Alkaline Phosphatase Ammonia Troponin I High Sens Total Protein Albumin Lipase Urine Color Urine Appearance Urine pH Ur Specific [place] Urine Protein Urine Glucose (UA) Urine Ketones Urine Blood Urine Nitrite Ur Leukocyte Esterase Urine RBC Urine WBC Ur Squamous Epith Cells Urine Bacteria Hyaline Casts Urine Opiates Screen Urine Fentanyl Screen Ur Barbiturates Screen Ur Phencyclidine Scrn Ur Amphetamines Screen U Benzodiazepines Scrn Urine Cocaine Screen U Marijuana (THC) Screen Ethyl Alcohol Influenza Type A (PCR) NEGATIVE Influenza Type B (PCR) NEGATIVE RSV RNA Qual (PCR) NEGATIVE SARS-CoV-2 RNA (RT-PCR) NEGATIVE 05/16/23 05/16/23 05/17/23 22:04 22:49 06:07 MCV 82.4 MCH 27.4 MCHC 33.2 RDW 13.9 Plt Count 169 MPV 11.9 Immature Gran % (Auto) Neut % (Auto) Lymph % (Auto) [place] % (Auto) Eos % (Auto) Baso % (Auto) Lymph # (Auto) [place] # (Auto) Eos # (Auto) Baso # (Auto) Abs Immat Gran (auto) Absolute Neuts (auto) Absolute Nucleated RBC 0.000 Nucleated RBC % (auto) 0.0 Hold Purple Top Anion Gap 13 12 Estim Creat Clear Calc 59.2 Estimated GFR > 60 POC Glucose 162 H Random Glucose 718 H* Osmolality Calcium 8.7 D Magnesium Total Bilirubin Direct Bilirubin AST ALT Alkaline Phosphatase Ammonia Troponin I High Sens Total Protein Albumin Lipase Urine Color Urine Appearance Urine pH Ur Specific [place] Urine Protein Urine Glucose (UA) Urine Ketones Urine Blood Urine Nitrite Ur Leukocyte Esterase Urine RBC Urine WBC Ur Squamous Epith Cells Urine Bacteria Hyaline Casts Urine Opiates Screen Urine Fentanyl Screen Ur Barbiturates Screen Ur Phencyclidine Scrn Ur Amphetamines Screen U Benzodiazepines Scrn Urine Cocaine Screen U Marijuana (THC) Screen Ethyl Alcohol Influenza Type A (PCR) Influenza Type B (PCR) RSV RNA Qual (PCR) SARS-CoV-2 RNA (RT-PCR) 05/17/23 05/17/23 05/17/23 07:21 07:23 07:39 MCV MCH MCHC RDW Plt Count MPV Immature Gran % (Auto) Neut % (Auto) Lymph % (Auto) [place] % (Auto) Eos % (Auto) Baso % (Auto) Lymph # (Auto) [place] # (Auto) Eos # (Auto) Baso # (Auto) Abs Immat Gran (auto) Absolute Neuts (auto) Absolute Nucleated RBC Nucleated RBC % (auto) Hold Purple Top Anion Gap Estim Creat Clear Calc Estimated GFR POC Glucose 231 H 227 H 224 H Random Glucose Osmolality Calcium Magnesium Total Bilirubin Direct Bilirubin AST ALT Alkaline Phosphatase Ammonia Troponin I High Sens Total Protein Albumin Lipase Urine Color Urine Appearance Urine pH Ur Specific [place] Urine Protein Urine Glucose (UA) Urine Ketones Urine Blood Urine Nitrite Ur Leukocyte Esterase Urine RBC Urine WBC Ur Squamous Epith Cells Urine Bacteria Hyaline Casts Urine Opiates Screen Urine Fentanyl Screen Ur Barbiturates Screen Ur Phencyclidine Scrn Ur Amphetamines Screen U Benzodiazepines Scrn Urine Cocaine Screen U Marijuana (THC) Screen Ethyl Alcohol Influenza Type A (PCR) Influenza Type B (PCR) RSV RNA Qual (PCR) SARS-CoV-2 RNA (RT-PCR) 05/17/23 08:40 MCV MCH MCHC RDW Plt Count MPV Immature Gran % (Auto) Neut % (Auto) Lymph % (Auto) [place] % (Auto) Eos % (Auto) Baso % (Auto) Lymph # (Auto) [place] # (Auto) Eos # (Auto) Baso # (Auto) Abs Immat Gran (auto) Absolute Neuts (auto) Absolute Nucleated RBC Nucleated RBC % (auto) Hold Purple Top SEE NOTE Anion Gap 13 Estim Creat Clear Calc 62.3 Estimated GFR > 60 POC Glucose Random Glucose 332 H Osmolality Calcium 9.5 D Magnesium Total Bilirubin Direct Bilirubin AST ALT Alkaline Phosphatase Ammonia Troponin I High Sens Total Protein Albumin Lipase Urine Color Urine Appearance Urine pH Ur Specific [place] Urine Protein Urine Glucose (UA) Urine Ketones Urine Blood Urine Nitrite Ur Leukocyte Esterase Urine RBC Urine WBC Ur Squamous Epith Cells Urine Bacteria Hyaline Casts Urine Opiates Screen Urine Fentanyl Screen Ur Barbiturates Screen Ur Phencyclidine Scrn Ur Amphetamines Screen U Benzodiazepines Scrn Urine Cocaine Screen U Marijuana (THC) Screen Ethyl Alcohol Influenza Type A (PCR) Influenza Type B (PCR) RSV RNA Qual (PCR) SARS-CoV-2 RNA (RT-PCR) Assessment and Plan (1) Hyponatremia: Status: Acute (2) Encephalopathy: Status: Acute Plan 68 year old female with Depression with anxiety, Schizoaffective disorder, PTSD (post-traumatic stress disorder), Dementia, CAD (coronary artery disease), Type 2 diabetes mellitus with chronic kidney disease, Chronic kidney disease, stage 3 unspecified, Type 2 diabetes mellitus with diabetic polyneuropathy, Essential hypertension here with confusion and found to have HypOnatremia, Hypomagnesemia Metabolic encephalopathy--likely d/t hyponatremia, no Uti, resolved and is at her baseline HypOnatremia--could be related to primaryly polydypsia or SSRI vs chronic SIADH. Sodium level prerna rapidly from 123 to 136 in 6 hours and therefore was given D5W, DDAVP and this mornings sodium is 126 -Will give a dose of salt tab per Nephro recommendation - SSRI continuing use to be determine by Psych -continue sodium restriction -Nehrology followin Leukocytosis--no obvious source of infection and pattern seem chronic, resolved. 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 -Given 15 of lantus this morning since get any last night and get rest today -Resume Metformin -Sliding and follow glucose HTN--coninue Lisinopril and Metoprolol Mood disorder/PTSD/Schizoaffective d/o --continue Lamictal, Sertralanie, Buspar--Psych to review meds. especially use of SSRI given potential associated with low sodium but will not stop apruptly elevated Lipase no abd pain-- DVT prophylaxis--Levenox Full code Need for inaptient: management of acute hyponatermia with frequent labs and med adjustment PT recommends home with services Quality Stroke Does the patient have a stroke diagnosis?: No VTE Prior VTE?: No VTE Risk Level:: Medical - moderate - high VTE Device Contraindication: N/A - Device Ordered VTE Drug Contraindication: N/A - Med Ordered
[2023-05-17] MEDS: Sodium Chloride Tab 1 GM TABLET PO ×2 (11:27→22:46)
[2023-05-17 11:57] LABS: Glucose, Whole Blood 200 mg/dL (60-115)
[2023-05-17 13:09] LABS: Anion Gap 13 (12-20); Blood Urea Nitrogen 6 mg/dL (9-16); Calcium 9.3 mg/dL (8.4-10.2); Carbon Dioxide 25 mmol/L (22-29); Chloride 93 mmol/L (96-108); Creatinine Clr Calc Pharmacy 72.8; Estimated Glomerular Filt Rate > 60; Glucose Random 183 mg/dL (60-115); Potassium 3.9 mmol/L (3.3-5.1); Sodium 127 mmol/L (135-145)
[2023-05-17 13:34] LABS: Lipase 30 U/L (8-78)
--- NOTE | 2023-05-17 14:52 | MHC.CM.PN ---
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 [phone] IMM DELIVERED DCP: HOME, RESUME [employer] [facility] SERVICES [employer] VS FAMILY TO TRANSPORT Original Note: PT ADMITTED WITH A DIAGNOSIS OF DEMENTIA AND ENCEPHALOPATHY CM ATTEMPTED TO CONTACT HER SON/HCP, DOC [phone], NO ANSWER CM CALLED HER PRIMARY CONTACT/SONSAMANTHA HE CONFIRMS SHE LIVES ALONE AND HAS A HCP AND VNA HE DOES NOT KNOW THE NUMBER OF HOURS FOR [employer] NOR THE AGENCY FOR VNA HE SAYS DOC MANAGES THE MEDICAL CARE FOR THE PT CM WILL CONTINUE TO TRY TO REACH DOC SAMANTHA CONFIRMS THE NUMBER ON FILE FOR HIM IS CORRECT
--- NOTE | 2023-05-17 16:45 | PM.PSYCN ---
History of Present Illness Date of Service: 05/17/2023 Chief Complaint: Encephalopathy, hyponatremia Reason for Consult: management of schizoaffective d/o Requesting physician: Edison Faulkner Discussed with referring provider: Yes Sources of Information: patient interviewed, chart reviewed and crisis/core team assessment reviewed HPI Narrative: Mrs. Cunha is a 68 year-old woman with hx of schizoaffective disorder who was brought to [facility] [place] [place] ED due to hypertension and confusion. Pt found to have hyponatremia, hypomagnesemia. She was admitted for AMS in setting of electrolyte imbalances. Pt seen in ED. Pt presents as pleasant. She reports she told her CREDIT INTERVIEWER that she was not feeling well and was brought to the ED. She reports she felt off, tired and confused. She denies SI/HI. She denies VH/AH. She denies depressed mood or anxious mood. No overt signs of paranoid or other types of delusions. She confirms that she sees Dr. Tramaine Dlegadillo for psychiatry. She is known to psychiatry through previous admissions to and [facility]. Last inpt admission was back in 2020 for psychosis. Past Psychiatric History: The patient has more than 20 admissions into the hospital at least 14 admissions at [facility]. She carries a diagnosis of schizoaffective disorder bipolar type and she has case management services by [facility]. She is on the [facility] program. [facility] Medical History Dermatophytosis Dermatitis Joint pain Depression with anxiety Schizoaffective disorder PTSD (post-traumatic stress disorder) Dementia Smoking CAD (coronary artery disease) Type 2 diabetes mellitus with chronic kidney disease Chronic kidney disease, stage 3 unspecified Type 2 diabetes mellitus with diabetic polyneuropathy Essential hypertension Dyslipidemia Diabetes mellitus with hyperglycemia Surgical History Hx of colonoscopy Hx of cataract surgery Hx of tubal ligation Hx of section Family History: Denies Diagnostics Vital Signs (24Hr): Vital Signs - 24 hr 05/16/23 18:54 05/17/23 01:57 05/17/23 06:00 Temperature 97.2 F 98.8 F 98.0 F Pulse Rate 63 70 71 Respiratory Rate 16 14 16 Blood Pressure 108/51 L 119/52 L 140/48 H Pulse Oximetry 92 92 95 Oxygen Delivery Method Room Air Room Air Room Air 05/17/23 07:41 05/17/23 08:36 05/17/23 15:51 Temperature 97.7 F 98.3 F Pulse Rate 75 75 67 Respiratory Rate 22 H 23 H Blood Pressure 149/61 H 149/61 H 137/59 L Pulse Oximetry 94 94 93 Oxygen Delivery Method Room Air Room Air BMI result Body Mass Index 25.9 Labs 05/17/23 06:07 05/17/23 12:46 Labs: Laboratory Results - last 48 hr 05/16/23 05/16/23 05/16/23 11:43 11:44 14:03 WBC 16.2 H RBC 4.62 Hgb 12.7 Hct 37.2 MCV 80.5 MCH 27.5 MCHC 34.1 RDW 13.2 Plt Count 197 MPV 11.4 Immature Gran % (Auto) 0.3 Neut % (Auto) 60.9 Lymph % (Auto) 30.2 [place]ran % (Auto) 7.4 Eos % (Auto) 0.8 Baso % (Auto) 0.4 Lymph # (Auto) 4.9 [place]chran # (Auto) 1.2 Eos # (Auto) 0.1 Baso # (Auto) 0.1 Abs Immat Gran (auto) 0.05 H Absolute Neuts (auto) 9.9 H Absolute Nucleated RBC 0.000 Nucleated RBC % (auto) 0.0 Hold Purple Top Sodium 123 L Potassium 3.8 Chloride 91 L Carbon Dioxide 24 Anion Gap 12 BUN 6 L Creatinine 0.76 Estim Creat Clear Calc 63.2 Estimated GFR > 60 POC Glucose Random Glucose 190 H Osmolality Calcium 9.5 Magnesium 1.3 L* Total Bilirubin 0.3 Direct Bilirubin 0.1 AST 19 ALT 23 Alkaline Phosphatase 94 Ammonia 32 Troponin I High Sens 8.5 D Total Protein 7.1 Albumin 4.0 Lipase 296 H Urine Color Yellow Urine Appearance Clear Urine pH 7.0 Ur Specific [place] <= 1.005 Urine Protein 30 (1+) H Urine Glucose (UA) Negative Urine Ketones Negative Urine Blood Negative Urine Nitrite Negative Ur Leukocyte Esterase Negative Urine RBC 0-2 Urine WBC 0-5 Ur Squamous Epith Cells 0-2 Urine Bacteria None Seen Hyaline Casts 0-2 Urine Opiates Screen Not Detected Urine Fentanyl Screen Not Detected Ur Barbiturates Screen Not Detected Ur Phencyclidine Scrn Not Detected Ur Amphetamines Screen Not Detected U Benzodiazepines Scrn Not Detected Urine Cocaine Screen Not Detected U Marijuana (THC) Screen Not Detected Ethyl Alcohol < 10 Influenza Type A (PCR) Influenza Type B (PCR) RSV RNA Qual (PCR) SARS-CoV-2 RNA (RT-PCR) 05/16/23 05/16/23 05/16/23 16:31 18:55 21:15 WBC RBC Hgb Hct MCV MCH MCHC RDW Plt Count MPV Immature Gran % (Auto) Neut % (Auto) Lymph % (Auto) [place] % (Auto) Eos % (Auto) Baso % (Auto) Lymph # (Auto) [place] # (Auto) Eos # (Auto) Baso # (Auto) Abs Immat Gran (auto) Absolute Neuts (auto) Absolute Nucleated RBC Nucleated RBC % (auto) Hold Purple Top Sodium 136 Potassium 4.1 Chloride 99 Carbon Dioxide 30 H Anion Gap 11 L BUN Creatinine Estim Creat Clear Calc Estimated GFR POC Glucose 126 H Random Glucose Osmolality 284 Calcium Magnesium 2.1 Total Bilirubin Direct Bilirubin AST ALT Alkaline Phosphatase Ammonia Troponin I High Sens Total Protein Albumin Lipase Urine Color Urine Appearance Urine pH Ur Specific [place] Urine Protein Urine Glucose (UA) Urine Ketones Urine Blood Urine Nitrite Ur Leukocyte Esterase Urine RBC Urine WBC Ur Squamous Epith Cells Urine Bacteria Hyaline Casts Urine Opiates Screen Urine Fentanyl Screen Ur Barbiturates Screen Ur Phencyclidine Scrn Ur Amphetamines Screen U Benzodiazepines Scrn Urine Cocaine Screen U Marijuana (THC) Screen Ethyl Alcohol Influenza Type A (PCR) NEGATIVE Influenza Type B (PCR) NEGATIVE RSV RNA Qual (PCR) NEGATIVE SARS-CoV-2 RNA (RT-PCR) NEGATIVE 05/16/23 05/16/23 05/17/23 22:04 22:49 06:07 WBC 8.0 RBC 3.91 L Hgb 10.7 L Hct 32.2 L MCV 82.4 MCH 27.4 MCHC 33.2 RDW 13.9 Plt Count 169 MPV 11.9 Immature Gran % (Auto) Neut % (Auto) Lymph % (Auto) [place] % (Auto) Eos % (Auto) Baso % (Auto) Lymph # (Auto) [place] # (Auto) Eos # (Auto) Baso # (Auto) Abs Immat Gran (auto) Absolute Neuts (auto) Absolute Nucleated RBC 0.000 Nucleated RBC % (auto) 0.0 Hold Purple Top Sodium 135 115 L* Potassium 4.1 3.9 Chloride 101 86 L Carbon Dioxide 25 21 L Anion Gap 13 12 BUN 5 L Creatinine 0.81 Estim Creat Clear Calc 59.2 Estimated GFR > 60 POC Glucose 162 H Random Glucose 718 H* Osmolality Calcium 8.7 D Magnesium Total Bilirubin Direct Bilirubin AST ALT Alkaline Phosphatase Ammonia Troponin I High Sens Total Protein Albumin Lipase Urine Color Urine Appearance Urine pH Ur Specific [place] Urine Protein Urine Glucose (UA) Urine Ketones Urine Blood Urine Nitrite Ur Leukocyte Esterase Urine RBC Urine WBC Ur Squamous Epith Cells Urine Bacteria Hyaline Casts Urine Opiates Screen Urine Fentanyl Screen Ur Barbiturates Screen Ur Phencyclidine Scrn Ur Amphetamines Screen U Benzodiazepines Scrn Urine Cocaine Screen U Marijuana (THC) Screen Ethyl Alcohol Influenza Type A (PCR) Influenza Type B (PCR) RSV RNA Qual (PCR) SARS-CoV-2 RNA (RT-PCR) 05/17/23 05/17/23 05/17/23 07:21 07:23 07:39 WBC RBC Hgb Hct MCV MCH MCHC RDW Plt Count MPV Immature Gran % (Auto) Neut % (Auto) Lymph % (Auto) [place] % (Auto) Eos % (Auto) Baso % (Auto) Lymph # (Auto) [place] # (Auto) Eos # (Auto) Baso # (Auto) Abs Immat Gran (auto) Absolute Neuts (auto) Absolute Nucleated RBC Nucleated RBC % (auto) Hold Purple Top Sodium Potassium Chloride Carbon Dioxide Anion Gap BUN Creatinine Estim Creat Clear Calc Estimated GFR POC Glucose 231 H 227 H 224 H Random Glucose Osmolality Calcium Magnesium Total Bilirubin Direct Bilirubin AST ALT Alkaline Phosphatase Ammonia Troponin I High Sens Total Protein Albumin Lipase Urine Color Urine Appearance Urine pH Ur Specific [place] Urine Protein Urine Glucose (UA) Urine Ketones Urine Blood Urine Nitrite Ur Leukocyte Esterase Urine RBC Urine WBC Ur Squamous Epith Cells Urine Bacteria Hyaline Casts Urine Opiates Screen Urine Fentanyl Screen Ur Barbiturates Screen Ur Phencyclidine Scrn Ur Amphetamines Screen U Benzodiazepines Scrn Urine Cocaine Screen U Marijuana (THC) Screen Ethyl Alcohol Influenza Type A (PCR) Influenza Type B (PCR) RSV RNA Qual (PCR) SARS-CoV-2 RNA (RT-PCR) 05/17/23 05/17/23 05/17/23 08:40 11:49 12:46 WBC RBC Hgb Hct MCV MCH MCHC RDW Plt Count MPV Immature Gran % (Auto) Neut % (Auto) Lymph % (Auto) [place] % (Auto) Eos % (Auto) Baso % (Auto) Lymph # (Auto) [place] # (Auto) Eos # (Auto) Baso # (Auto) Abs Immat Gran (auto) Absolute Neuts (auto) Absolute Nucleated RBC Nucleated RBC % (auto) Hold Purple Top SEE NOTE Sodium 126 L 127 L Potassium 4.4 3.9 Chloride 93 L 93 L Carbon Dioxide 24 25 Anion Gap 13 13 BUN 5 L 6 L Creatinine 0.77 0.66 Estim Creat Clear Calc 62.3 72.8 Estimated GFR > 60 > 60 POC Glucose 200 H Random Glucose 332 H 183 H Osmolality Calcium 9.5 D 9.3 Magnesium Total Bilirubin Direct Bilirubin AST ALT Alkaline Phosphatase Ammonia Troponin I High Sens Total Protein Albumin Lipase 30 Urine Color Urine Appearance Urine pH Ur Specific [place] Urine Protein Urine Glucose (UA) Urine Ketones Urine Blood Urine Nitrite Ur Leukocyte Esterase Urine RBC Urine WBC Ur Squamous Epith Cells Urine Bacteria Hyaline Casts Urine Opiates Screen Urine Fentanyl Screen Ur Barbiturates Screen Ur Phencyclidine Scrn Ur Amphetamines Screen U Benzodiazepines Scrn Urine Cocaine Screen U Marijuana (THC) Screen Ethyl Alcohol Influenza Type A (PCR) Influenza Type B (PCR) RSV RNA Qual (PCR) SARS-CoV-2 RNA (RT-PCR) Imaging Radiology Impressions: ITS Impressions Chest X-Ray 05/16/23 12:15 IMPRESSION: Minimal haziness in both lung bases likely atelectasis or scarring similar to previous study. No acute pneumonic consolidation seen. Cervical Spine CT 05/16/23 13:00 IMPRESSION: 1. No acute intracranial pathology. 2. Chronic white matter small vessel ischemic changes. EXAMINATION: Noncontrast CT scan of the cervical spine. INDICATION: Altered mental status COMPARISON: CT cervical spine from 10/14/2022 TECHNIQUE: Helical, multidetector axial images were obtained from the occiput to the upper thorax. Coronal and sagittal reformats of the cervical spine were provided for interpretation. DLP: 1236 mGy-cm FINDINGS: No acute fractures or dislocations of the cervical spine are seen. Multilevel degenerative changes. Anatomic alignment and positioning of the vertebral bodies and posterior elements is noted. The atlantoaxial joint and craniovertebral articulations are normal without evidence of subluxation. There is no prevertebral soft tissue swelling. The thyroid gland and visualized portions of the lung apices and mediastinum are unremarkable. IMPRESSION: 1. No acute visible fracture or dislocation. 2. Multilevel degenerative changes. Head CT 05/16/23 13:00 IMPRESSION: 1. No acute intracranial pathology. 2. Chronic white matter small vessel ischemic changes. EXAMINATION: Noncontrast CT scan of the cervical spine. INDICATION: Altered mental status COMPARISON: CT cervical spine from 10/14/2022 TECHNIQUE: Helical, multidetector axial images were obtained from the occiput to the upper thorax. Coronal and sagittal reformats of the cervical spine were provided for interpretation. DLP: 1236 mGy-cm FINDINGS: No acute fractures or dislocations of the cervical spine are seen. Multilevel degenerative changes. Anatomic alignment and positioning of the vertebral bodies and posterior elements is noted. The atlantoaxial joint and craniovertebral articulations are normal without evidence of subluxation. There is no prevertebral soft tissue swelling. The thyroid gland and visualized portions of the lung apices and mediastinum are unremarkable. IMPRESSION: 1. No acute visible fracture or dislocation. 2. Multilevel degenerative changes. Abdomen/Pelvis CT 05/16/23 16:59 IMPRESSION: 1. Markedly distended urinary bladder to the level of the umbilicus. Mild fullness to the right collecting system and ureter but no obvious renal or ureteric calculi seen. 2. Mild fatty infiltration of the liver. 3. No peripancreatic inflammatory changes or fluid at this time. No pancreatic ductal dilatation. Mental Status Exam Mental Status Exam Narrative: Pt wearing hospital gown, fair hygiene, in NAD. Behavior: cooperative and friendly Psychomotor: no agitation or retardation noted Speech: clear, normal rate/rhythm/volume, spontaneous TP: linear TC: feeling better and wondering when she is going home Mood: better Affect: congruent, SI: denies HI: denies VH/AH: no overt signs Delusions: no overt delusional content noted or reported. Insight/judgment: fair x 2. Memory/cog: alert, oriented to place, month year, somewhat vague about situation. Medications Medications Current Medications Acetaminophen (Acetaminophen 325 Mg Tablet) 650 mg PO Q6H PRN PRN Reason: Pain, Mild (Pain Scale 1-3) Last Admin: 05/17/23 05:53 Dose: 650 mg Acetaminophen/Butalbital/Caffeine (Butalb/Acetamin/Caff 50/325/40 Tablet) 1 tab PO Q4H PRN PRN Reason: headache Aripiprazole (Aripiprazole 20 Mg Tablet) 20 mg PO BEDTIME [facility] Aspirin (Aspirin Enteric Coated 81 Mg Tablet.) 81 mg PO DAILY [facility] Last Admin: 05/17/23 09:34 Dose: 81 mg Atorvastatin Calcium (Atorvastatin Calcium 80 Mg Tablet) 80 mg PO DAILY [facility] Last Admin: 05/17/23 09:33 Dose: 80 mg Buspirone HCl (Buspirone Hcl 10 Mg Tablet) 10 mg PO TID [facility] Last Admin: 05/17/23 15:36 Dose: 10 mg Clotrimazole (Clotrimazole 1 % Cream 15 Gm Tube) 1 appl TOPICAL BID PRN; Protocol PRN Reason: Rash Dextrose (Dextrose 50 % 25 Gm/50 Ml Syringe) 25 gm IVPUSH Q15M PRN; Protocol PRN Reason: per Hypoglycemia Standing Ord. Docusate Sodium (Docusate Sodium 100 Mg Capsule) 200 mg PO BEDTIME DELMER Enoxaparin Sodium (Enoxaparin Sodium 40 Mg/0.4 Ml Syringe) 40 mg SUBCUT Q24H [facility] Last Admin: 05/16/23 20:15 Dose: 40 mg Gabapentin (Gabapentin 100 Mg Capsule) 200 mg PO BID [facility] Last Admin: 05/17/23 09:33 Dose: 200 mg Glucose (Glucose Gel 15 Gm Gel..Gram.) 15 gm PO Q15M PRN; Protocol PRN Reason: per Hypoglycemia Standing Ord. Hydrocortisone (Hydrocortisone 2.5 % Rectal Cr 30 Gm Tube) 1 appl NC BID PRN PRN Reason: Hemorrhoids Insulin Glargine (Insulin Glargine,Hum.Rec.Anlog 100 Unit/Ml 10 Ml Vial) 15 unit SUBCUT DAILY [facility] Last Admin: 05/17/23 09:34 Dose: 15 unit Insulin Glargine (Insulin Glargine,Hum.Rec.Anlog 100 Unit/Ml 10 Ml Vial) 20 unit SUBCUT BEDTIME [facility] Insulin Human Lispro (Insulin Lispro 100 Unit/Ml 3 Ml Vial) 0 unit SUBCUT QIDACHS [facility]; Protocol Last Admin: 05/17/23 13:31 Dose: 2 unit Lactic Acid (Ammonium Lactate 12 % Lotion 226 Gm Bottle) 1 appl TOPICAL DAILY [facility]; Protocol Last Admin: 05/17/23 09:38 Dose: 1 appl Lamotrigine (Lamotrigine 100 Mg Tablet) 200 mg PO DAILY [facility] Last Admin: 05/17/23 09:33 Dose: 200 mg Lisinopril (Lisinopril 10 Mg Tablet) 10 mg PO DAILY [facility]; Protocol Last Admin: 05/17/23 09:34 Dose: 10 mg Lorazepam (Lorazepam 0.5 Mg Tablet) 0.5 mg PO BEDTIME PRN PRN Reason: Anxiety Magnesium Hydroxide (Milk Of Magnesia 30 Ml Oral.Susp) 30 ml PO DAILY PRN PRN Reason: Constipation Melatonin (Melatonin 3 Mg Tablet) 3 mg PO BEDTIME PRN PRN Reason: Insomnia Metformin HCl (Metformin Hcl 500 Mg Tablet) 500 mg PO BID [facility] Last Admin: 05/17/23 09:34 Dose: 500 mg Metoprolol Tartrate (Metoprolol Tartrate 25 Mg Tablet) 25 mg PO BID [facility]; Protocol Last Admin: 05/17/23 09:33 Dose: 25 mg Multivitamins/Vitamin C (Multivitamin Tablet) 1 tab PO DAILY [facility] Last Admin: 05/17/23 09:33 Dose: 1 tab Non-Formulary Medication (Dulaglutide [Trulicity]) 0.75 mg SUBCUT QWEEK [facility] Omeprazole (Omeprazole 20 Mg Capsule.Dr) 20 mg PO DAILY@0630 [facility] Senna (Sennosides 8.6 Mg Tablet) 8.6 mg PO BEDTIME [facility] Sertraline HCl (Sertraline Hcl 50 Mg Tablet) 150 mg PO DAILY [facility] Last Admin: 05/17/23 09:33 Dose: 150 mg Sodium Chloride (0.9 % Sodium Chloride Flush 3 Ml Syringe) 3 ml IVFLUSH QSHIFT [facility] Last Admin: 05/17/23 15:37 Dose: 3 ml Sodium Chloride (Sodium Chloride Tab 1 Gm Tablet) 1 gm PO BID [facility] Stop: 05/17/23 21:01 Last Admin: 05/17/23 11:27 Dose: 1 gm Zinc Oxide (Zinc Oxide 20% Ointment 28.35 Gm Tube) 1 appl TOPICAL BID PRN; Protocol PRN Reason: Rash INTERGLUTERAL Allergies Allergies Allergy/AdvReac Type Severity Reaction Status Date / Time duloxetine [Cymbalta] Allergy Unknown Unknown Verified 04/15/23 11:18 hydroxyzine Allergy Unknown unknown Verified 04/15/23 11:18 risperidone Allergy Unknown Unknown Verified 04/15/23 11:18 trazodone Allergy Unknown Unknown Verified 04/15/23 11:18 quetiapine [From SEROQUEL] AdvReac Severe Acute Verified 04/15/23 11:18 Dystonic reaction Assessment & Plan Assessment & Plan (1) Schizoaffective disorder: Status: Acute Code(s): F25.9 - Schizoaffective disorder, unspecified Plan Ms. Cunha is a 68 year-old woman with hx of schizoaffective disorder brought in to [facility] [place] [place] ED due to HTN and confusion. She was found to have hyponatremia and low magnesium. Pt currently does not present with alter mental status nor delirious. In terms of psychiatric symptoms, she presents as stable with no acute signs of psychosis, delusions, SI or HI. Question of hyponatremia and whether this may be related to psychotropic medications: - pending urine osmolality at this time. If urine osmolality >100 mOsm/kg (in hypotonic hyponatremia, in euvolemic pt), would be suggestive of impaired free water excretion which is mechanism by which psychotropic medications cause hyponatremia- particular concern with SSRI, like Sertraline. Assuming no adrenal dysfunction. If this is the case can lower and taper off as SE is not dose dependent. - if urine osmolality <100mOsm/Kg--> (again in hypotonic hyponatremia in euvolemic) then is suggestive of psychogenic polydipsia. - will f/u results of labs when completed to have better understanding of cause of hyponatremia. also, adjust sodium base on BS. Total time managing care of this patient today ____ minutes.
--- NOTE | 2023-05-17 19:13 | P.CONNP_ITS ---
History of Present Illness Reason for Consult Consult date: 05/17/23 Chief Complaint Chief complaint: Encephalopathy, hyponatremia History of Present Illness Narrative: 68 year old female with Depression with anxiety, Schizoaffective disorder, PTSD (post-traumatic stress disorder), Type 2 diabetes mellitus who was brought to the ER after her MEDICAL RECEPTIONIST MEDICAL ASSISTANT noted her to have high blood pressure and AMS. Work up has included UA showing no infection, CT head and cervical spine unremarkable. BMP show sodium of 123 . she has no diarrhea, no fever or chils, no chest pain, no sob, no dizziness. She was admitted for further management. Nephrology has been consulted to assist in her clinical care during her current hospital stay Review of Systems Review of Systems Yes all other systems are reviewed and are negative PMFSH Past Medical History Medical History Dermatophytosis Dermatitis Joint pain Depression with anxiety Schizoaffective disorder PTSD (post-traumatic stress disorder) Dementia Smoking CAD (coronary artery disease) Type 2 diabetes mellitus with chronic kidney disease Chronic kidney disease, stage 3 unspecified Type 2 diabetes mellitus with diabetic polyneuropathy Essential hypertension Dyslipidemia Diabetes mellitus with hyperglycemia Family History Family History Father No problems noted. Mother No problems noted. Surgical History Surgical History Hx of colonoscopy Hx of cataract surgery Hx of tubal ligation Hx of section Social History Social History Household Members: None Household Members Other:: has CHD Services Housing: Apartment Do you presently have visiting nurse or other home services: No Alcohol intake: former Patient Tobacco Use Status: Never used Tobacco Tobacco use type: Cigarette Cigarette Packs Per Day: 1 Cigarettes Per Day: 20.0 Second Hand Smoke Exposure: No Advance Directives: Yes Advance Directives on File: Yes Advance Directives Date on File: 09/30/20 Nutrition Risks: No Nutritional Risk service: No Sexual orientation: Straight/Heterosexual Meds Allergies Allergy/AdvReac Type Severity Reaction Status Date / Time duloxetine [Cymbalta] Allergy Unknown Unknown Verified 04/15/23 11:18 hydroxyzine Allergy Unknown unknown Verified 04/15/23 11:18 risperidone Allergy Unknown Unknown Verified 04/15/23 11:18 trazodone Allergy Unknown Unknown Verified 04/15/23 11:18 quetiapine [From SEROQUEL] AdvReac Severe Acute Verified 04/15/23 11:18 Dystonic reaction Active Medications: Current Medications Acetaminophen (Acetaminophen 325 Mg Tablet) 650 mg PO Q6H PRN PRN Reason: Pain, Mild (Pain Scale 1-3) Last Admin: 05/17/23 05:53 Dose: 650 mg Acetaminophen/Butalbital/Caffeine (Butalb/Acetamin/Caff 50/325/40 Tablet) 1 tab PO Q4H PRN PRN Reason: headache Aripiprazole (Aripiprazole 20 Mg Tablet) 20 mg PO BEDTIME [facility] Aspirin (Aspirin Enteric Coated 81 Mg Tablet.Dr) 81 mg PO DAILY [facility] Last Admin: 05/17/23 09:34 Dose: 81 mg Atorvastatin Calcium (Atorvastatin Calcium 80 Mg Tablet) 80 mg PO DAILY [facility] Last Admin: 05/17/23 09:33 Dose: 80 mg Buspirone HCl (Buspirone Hcl 10 Mg Tablet) 10 mg PO TID [facility] Last Admin: 05/17/23 15:36 Dose: 10 mg Clotrimazole (Clotrimazole 1 % Cream 15 Gm Tube) 1 appl TOPICAL BID PRN; Protocol PRN Reason: Rash Dextrose (Dextrose 50 % 25 Gm/50 Ml Syringe) 25 gm IVPUSH Q15M PRN; Protocol PRN Reason: per Hypoglycemia Standing Ord. Docusate Sodium (Docusate Sodium 100 Mg Capsule) 200 mg PO BEDTIME [facility] Enoxaparin Sodium (Enoxaparin Sodium 40 Mg/0.4 Ml Syringe) 40 mg SUBCUT Q24H [facility] Last Admin: 05/16/23 20:15 Dose: 40 mg Gabapentin (Gabapentin 100 Mg Capsule) 200 mg PO BID [facility] Last Admin: 05/17/23 09:33 Dose: 200 mg Glucose (Glucose Gel 15 Gm Gel..Gram.) 15 gm PO Q15M PRN; Protocol PRN Reason: per Hypoglycemia Standing Ord. Hydrocortisone (Hydrocortisone 2.5 % Rectal Cr 30 Gm Tube) 1 appl IA BID PRN PRN Reason: Hemorrhoids Insulin Glargine (Insulin Glargine,Hum.Rec.Anlog 100 Unit/Ml 10 Ml Vial) 15 unit SUBCUT DAILY [facility] Last Admin: 05/17/23 09:34 Dose: 15 unit Insulin Glargine (Insulin Glargine,Hum.Rec.Anlog 100 Unit/Ml 10 Ml Vial) 20 unit SUBCUT BEDTIME [facility] Insulin Human Lispro (Insulin Lispro 100 Unit/Ml 3 Ml Vial) 0 unit SUBCUT QIDACHS [facility]; Protocol Last Admin: 05/17/23 13:31 Dose: 2 unit Lactic Acid (Ammonium Lactate 12 % Lotion 226 Gm Bottle) 1 appl TOPICAL DAILY [facility]; Protocol Last Admin: 05/17/23 09:38 Dose: 1 appl Lamotrigine (Lamotrigine 100 Mg Tablet) 200 mg PO DAILY [facility] Last Admin: 05/17/23 09:33 Dose: 200 mg Lisinopril (Lisinopril 10 Mg Tablet) 10 mg PO DAILY [facility]; Protocol Last Admin: 05/17/23 09:34 Dose: 10 mg Lorazepam (Lorazepam 0.5 Mg Tablet) 0.5 mg PO BEDTIME PRN PRN Reason: Anxiety Magnesium Hydroxide (Milk Of Magnesia 30 Ml Oral.Susp) 30 ml PO DAILY PRN PRN Reason: Constipation Melatonin (Melatonin 3 Mg Tablet) 3 mg PO BEDTIME PRN PRN Reason: Insomnia Metformin HCl (Metformin Hcl 500 Mg Tablet) 500 mg PO BID [facility] Last Admin: 05/17/23 09:34 Dose: 500 mg Metoprolol Tartrate (Metoprolol Tartrate 25 Mg Tablet) 25 mg PO BID [facility]; Protocol Last Admin: 05/17/23 09:33 Dose: 25 mg Multivitamins/Vitamin C (Multivitamin Tablet) 1 tab PO DAILY [facility] Last Admin: 05/17/23 09:33 Dose: 1 tab Non-Formulary Medication (Dulaglutide [Trulicity]) 0.75 mg SUBCUT QWEEK [facility] Omeprazole (Omeprazole 20 Mg Capsule.Dr) 20 mg PO DAILY@0630 [facility] Senna (Sennosides 8.6 Mg Tablet) 8.6 mg PO BEDTIME [facility] Sertraline HCl (Sertraline Hcl 50 Mg Tablet) 150 mg PO DAILY [facility] Last Admin: 05/17/23 09:33 Dose: 150 mg Sodium Chloride (0.9 % Sodium Chloride Flush 3 Ml Syringe) 3 ml IVFLUSH QSHIFT [facility] Last Admin: 05/17/23 15:37 Dose: 3 ml Sodium Chloride (Sodium Chloride Tab 1 Gm Tablet) 1 gm PO BID [facility] Stop: 05/17/23 21:01 Last Admin: 05/17/23 11:27 Dose: 1 gm Zinc Oxide (Zinc Oxide 20% Ointment 28.35 Gm Tube) 1 appl TOPICAL BID PRN; Protocol PRN Reason: Rash INTERGLUTERAL Home Medications Medication Instructions Recorded Confirmed Last Taken Type lorazepam 0.5 mg tablet 1 tab PO BEDTIME PRN Anxiety 11/07/21 05/16/23 Unknown History metoprolol tartrate 25 mg tablet 1 tab PO BID 11/07/21 05/16/23 Unknown History pantoprazole 40 mg tablet,delayed 40 mg PO DAILY 05/19/22 05/16/23 Unknown History release ammonium lactate 12 % lotion 1 appl topical DAILY 06/16/22 05/16/23 Unknown History hydrocortisone 2.5 % topical cream 1 appl [place] BID PRN Hemorrhoids 06/16/22 05/16/23 Unknown History with perineal applicator (Proctozone-HC) sertraline 100 mg tablet 150 mg PO DAILY 06/16/22 05/16/23 Unknown History aripiprazole 20 mg tablet 20 mg PO BEDTIME 09/07/22 05/16/23 Unknown History buspirone 10 mg tablet 10 mg PO TID 09/07/22 05/16/23 Unknown History atorvastatin 80 mg tablet 80 mg PO DAILY 05/16/23 05/16/23 Unknown History clotrimazole 1 % topical cream 1 appl topical BID PRN Rash 05/16/23 05/16/23 Unknown History dulaglutide 0.75 mg/0.5 mL 0.75 mg subcut MO 05/16/23 05/17/23 Unknown History subcutaneous pen injector (Trulicity) gabapentin 100 mg capsule 200 mg PO BID 05/16/23 05/16/23 Unknown History ibuprofen 800 mg tablet 800 mg PO TID PRN Pain 05/16/23 05/16/23 Unknown History insulin aspart U-100 100 unit/mL 6 unit subcut BIDAC PRN BG 200-250 05/16/23 05/16/23 Unknown History (3 mL) subcutaneous pen insulin aspart U-100 100 unit/mL 10 unit subcut BID PRN BG . 250 05/16/23 05/16/23 Unknown History (3 mL) subcutaneous pen (Novolog FlexPen U-100 Insulin aspart) insulin degludec 200 unit/mL (3 28 unit subcut BEDTIME 05/16/23 05/16/23 Unknown History mL) subcutaneous pen (Tresiba FlexTouch U-200 insulin) lamotrigine 200 mg tablet 200 mg PO DAILY 05/16/23 05/16/23 Unknown History multivitamin 1 tab PO DAILY 05/16/23 05/16/23 Unknown History polyvinyl alcohol 1.4 % eye drops 1 drp ophthalmic (eye) BID PRN Dry 05/16/23 05/16/23 Unknown History (Artificial Tears (polyvinyl Eye(S) alcohol)) zinc oxide 20 % topical ointment 1 appl topical BID PRN Rash 05/16/23 05/16/23 Unknown History INTERGLUTERAL Physical Exam Vital Signs: Last Vital Signs Temp 98.3 F 05/17/23 15:51 Pulse 72 05/17/23 18:40 Resp 16 05/17/23 18:40 BP 137/59 L 05/17/23 15:51 Pulse Ox 95 05/17/23 18:40 O2 Del Method Room Air 05/17/23 18:40 BMI result Body Mass Index 25.9 Const General: comfortable and no acute distress Orientation/consciousness: patient oriented x3 HEENT Head: Yes normocephalic Mouth: Normal oral and palatal mucosa present Eyes EOM: EOMs intact bilaterally Neck Neck: Yes supple Resp Auscultation: clear to auscultation bilaterally Cardio Jugular venous distension: no JVD Rate: regular rate GI Palpation (GI): Soft to palpation Auscultation: normal bowel sounds General: Yes no CVA tenderness Back/Spine/Pelvis Back: no CVA tenderness Skin General skin exam: no rashes or lesions noted Neuro General: patient oriented x3 and moves all extremities Extrem General: Yes no pedal edema Results Lab Results 05/17/23 06:07 05/17/23 12:46 Lab results: Chemistry 05/16/23 05/16/23 05/16/23 11:44 18:55 22:04 Sodium 123 L 136 135 Potassium 3.8 4.1 4.1 Carbon Dioxide 24 30 H 25 BUN 6 L Creatinine 0.76 Calcium 9.5 05/17/23 05/17/23 05/17/23 06:07 08:40 12:46 Sodium 115 L* 126 L 127 L Potassium 3.9 4.4 3.9 Carbon Dioxide 21 L 24 25 BUN 5 L 5 L 6 L Creatinine 0.81 0.77 0.66 Calcium 8.7 D 9.5 D 9.3 Hematology 05/16/23 05/17/23 11:44 06:07 WBC 16.2 H 8.0 Hgb 12.7 10.7 L Plt Count 197 169 Urinalysis 05/16/23 11:44 Urine Color Yellow Urine Appearance Clear Urine pH 7.0 Ur Specific [place] <= 1.005 Urine Protein 30 (1+) H Urine Glucose (UA) Negative Urine Ketones Negative Urine Blood Negative Urine Nitrite Negative Ur Leukocyte Esterase Negative Urine RBC 0-2 Urine WBC 0-5 Ur Squamous Epith Cells 0-2 Hyaline Casts 0-2 Assessment and Plan (1) Hyponatremia: Status: Acute Plan Hyponatremia likely multifactorial BS needs to be better controlled consistently Has excess ADH at baseline Euvolemic. Serum Na improving Ordered NaCl tablets for one day Cortisol/TSH/Immunofixation ordered Mentation is at baseline now Renal function/Liver function normal No signs of CHF; C/W rest of current management Shall closely follow up in office when D/Earl Procedures Date of Service Date of Service: 05/17/23
[2023-05-17 19:49] LABS: Glucose, Whole Blood 189 mg/dL (60-115)
[2023-05-17 19:55] LABS: Anion Gap 13 (12-20); Carbon Dioxide 24 mmol/L (22-29); Chloride 94 mmol/L (96-108); Potassium 4.1 mmol/L (3.3-5.1); Sodium 127 mmol/L (135-145)
[2023-05-17 21:18] LABS: Glucose, Whole Blood 276 mg/dL (60-115)
[2023-05-17] MEDS: Docusate Sodium 100 MG CAPSULE 200 MG PO (21:38)
[2023-05-17] MEDS: Enoxaparin Sodium 40 MG/0.4 ML SYRINGE SUBCUT (21:38)
[2023-05-17] MEDS: Sennosides 8.6 MG TABLET PO (21:39)
[2023-05-17] MEDS: ARIPiprazole 20 MG TABLET PO (21:39)
[2023-05-18 04:00] VITALS: BP 110/63; PULSE 65; RESP 19; TEMP 36.9; O2SAT 97
[2023-05-18] MEDS: Omeprazole 20 MG CAPSULE.DR PO (05:25)
[2023-05-18 06:57] LABS: Anion Gap 13 (12-20); Blood Urea Nitrogen 11 mg/dL (9-16); Carbon Dioxide 27 mmol/L (22-29); Chloride 96 mmol/L (96-108); Estimated Glomerular Filt Rate > 60; Glucose Random 139 mg/dL (60-115); Potassium 4.4 mmol/L (3.3-5.1); Sodium 132 mmol/L (135-145)
[2023-05-18 07:24] LABS: TSH reflex Free T4 2.32 uIU/mL (0.32-4.0)
[2023-05-18 07:31] LABS: Cortisol Random 12.6 ug/dL
[2023-05-18 07:51] VITALS: BP 146/68; PULSE 75; RESP 18; TEMP 36.3; O2SAT 96
[2023-05-18 08:02] LABS: Glucose, Whole Blood 155 mg/dL (60-115)
[2023-05-18] MEDS: Insulin Glargine,Hum.rec.anlog 100 UNIT/ML 10 ML VIAL 15 UNIT SUBCUT (08:21)
[2023-05-18] MEDS: Insulin Lispro 100 UNIT/ML 3 ML VIAL SUBCUT (08:22)
[2023-05-18] MEDS: lisinopriL 10 MG TABLET PO (08:22)
[2023-05-18] MEDS: lamoTRIgine 100 MG TABLET 200 MG PO (08:22)
[2023-05-18] MEDS: busPIRone HCl 10 MG TABLET PO (08:22)
[2023-05-18] MEDS: Atorvastatin Calcium 80 MG TABLET PO (08:23)
[2023-05-18] MEDS: Sertraline HCL 50 MG TABLET 150 MG PO (08:23)
[2023-05-18] MEDS: Gabapentin 100 MG CAPSULE 200 MG PO (08:23)
[2023-05-18] MEDS: metFORMIN HCl 500 MG TABLET PO (08:23)
[2023-05-18] MEDS: Multivitamin TABLET 1 TAB PO (08:23)
[2023-05-18] MEDS: Metoprolol Tartrate 25 MG TABLET PO (08:23)
[2023-05-18] MEDS: Aspirin Enteric Coated 81 MG TABLET.DR PO (08:23)
[2023-05-18] MEDS: 0.9 % Sodium Chloride Flush 3 ML SYRINGE IVFLUSH (08:28)
[2023-05-18] MEDS: Ammonium Lactate 12 % Lotion 226 GM BOTTLE 1 APPL TOPICAL (08:29)
--- NOTE | 2023-05-18 11:16 | PM.DS ---
DS: Providers Provider Date of Service: 05/18/23 Date of admission: 05/16/23 18:28 Primary care physician: Unknown Physician Consults: 05/16/23 18:29 Consult to Nephrology Routine Consulting Provider: [facility] Reason for consultation: Hyponatremia Has provider been notified: Yes 05/16/23 18:30 Consult to Psychiatry Routine Consulting Provider: Psych Covering Reason for consultation: PTSD, schizoaffective d/o management Has provider been notified: No DS: Diagnosis Discharge Diagnosis (1) Hyponatremia: Status: Acute (2) Hypomagnesemia: Status: Acute (3) Encephalopathy: Status: Acute DS: Summary Hospital Course Hospital Course: Admission note HPI 68 year old female with Depression with anxiety, Schizoaffective disorder, PTSD (post-traumatic stress disorder), Dementia, CAD (coronary artery disease), Type 2 diabetes mellitus with chronic kidney disease, Chronic kidney disease, stage 3 unspecified, Type 2 diabetes mellitus with diabetic polyneuropathy, Essential hypertension, Dyslipidemia who brought to the ED after her DEPOSITING MACHINE OPERATOR noted her to have high blood pressure and confused. She tells me she lives alone and has a DEPOSITING MACHINE OPERATOR and had morning and evening nurses coming every doiran, she is not able to tell me why she is here but is aware that she is [facility]. I spoke to her son Fahad who colaborated her story that she lives alone and has DEPOSITING MACHINE OPERATOR and daily visiting nurses. Her son states that she saw her 2 days ago and she seemed ok other her saying that she wasn't sleeping because she has been drinking coffee at night. Work up has included UA showing no infection, CT head and cervical spine unremarkable. BMP show sodium of 123 and magnesium is only 1.3, lipase of 296 no abdominal pain--labs were done at 11 and not yet repeated. Else she has no diarrhea, no fever or chils, no chest pain, no sob, no dizziness. Hospital course The patient was admitted for evaluation of acute Metabolic encephalopathy due to hyponatremia. she was treated with fluids and Sodium prerna quickly from 123 to 136 in 6 hours and therefore was given D5W, DDAVP with fair response. Nephrology evaluated her and she was started on salt tablets. started on water restriction for 1.5L with fair response as sodium corrected back to 132 on the day of discharge with resolving encephalopathy as patient went back to her baseline status. seen by psychiatry for possible change in SSRI but will likely be followed as outpatient to complete work up. nephrology to follow as outpatient. Hypomagenesmia was corrected with IV mag Diabetes under fair control using lower doses of Lantus , SSI and resuming his home dose Metformin. Limit water intake to 1.2L daily Repeat blood test as outpatient Follow with dr Bingham as outpatient Only take 10 units of Lantus tonight then back to your home dose starting tomorrow Time Attestation Discharge Coordination Time (in mins): 36 Quality: Safe Use of Opioids Does Pt have an Active Cancer Diagnosis on the Problem List?: No Quality: Stroke Does the patient have a stroke diagnosis?: No Physical Exam Vital Signs: Vital Signs: Last Vital Signs Temp 97.3 F 05/18/23 07:51 Pulse 75 05/18/23 07:51 Resp 18 05/18/23 07:51 BP 146/68 H 05/18/23 07:51 Pulse Ox 96 05/18/23 07:51 O2 Del Method Room Air 05/18/23 07:51 BMI result Body Mass Index 25.9 Const: Other: Constitutional : Awake, interactive, not in distress Neck : Normal inspection, Supple Cardiovascular : RRR, no JVP, no lower extremity edema Respiratory : good bilateral air entry, no crackles, wheezes or rhonchi Gastrointestinal: soft, lax, Normal bowel sounds, Non tender Skin : Warm, Dry Neurological : Alert & oriented x3, No focal deficit DS: Data Data Completed and Pending Labs on day of discharge: Laboratory Results - last 24 hr 05/17/23 05/17/23 05/17/23 11:49 12:46 19:38 Sodium 127 L 127 L Potassium 3.9 4.1 Chloride 93 L 94 L Carbon Dioxide 25 24 Anion Gap 13 13 BUN 6 L Creatinine 0.66 Estim Creat Clear Calc 72.8 Estimated GFR > 60 POC Glucose 200 H Random Glucose 183 H Calcium 9.3 Lipase 30 TSH Random Cortisol 05/17/23 05/17/23 05/18/23 19:46 21:14 05:20 Sodium 132 L Potassium 4.4 Chloride 96 Carbon Dioxide 27 Anion Gap 13 BUN 11 Creatinine 0.75 Estim Creat Clear Calc 64.0 Estimated GFR > 60 POC Glucose 189 H 276 H Random Glucose 139 H Calcium 10.0 D Lipase TSH 2.32 Random Cortisol 12.6 05/18/23 07:49 Sodium Potassium Chloride Carbon Dioxide Anion Gap BUN Creatinine Estim Creat Clear Calc Estimated GFR POC Glucose 155 H Random Glucose Calcium Lipase TSH Random Cortisol Preliminary micro results at discharge 05/16/23 12:03 Blood Culture - Preliminary Blood - Venous No growth after 24 hours. 05/16/23 11:43 Blood Culture - Preliminary Blood - Venous No growth after 24 hours. Imaging Chest x-ray: Radiologist's impression: ITS Impressions Chest X-Ray 05/16/23 12:15 IMPRESSION: Minimal haziness in both lung bases likely atelectasis or scarring similar to previous study. No acute pneumonic consolidation seen. Cervical Spine CT 05/16/23 13:00 IMPRESSION: 1. No acute intracranial pathology. 2. Chronic white matter small vessel ischemic changes. EXAMINATION: Noncontrast CT scan of the cervical spine. INDICATION: Altered mental status COMPARISON: CT cervical spine from 10/14/2022 TECHNIQUE: Helical, multidetector axial images were obtained from the occiput to the upper thorax. Coronal and sagittal reformats of the cervical spine were provided for interpretation. DLP: 1236 mGy-cm FINDINGS: No acute fractures or dislocations of the cervical spine are seen. Multilevel degenerative changes. Anatomic alignment and positioning of the vertebral bodies and posterior elements is noted. The atlantoaxial joint and craniovertebral articulations are normal without evidence of subluxation. There is no prevertebral soft tissue swelling. The thyroid gland and visualized portions of the lung apices and mediastinum are unremarkable. IMPRESSION: 1. No acute visible fracture or dislocation. 2. Multilevel degenerative changes. Head CT 05/16/23 13:00 IMPRESSION: 1. No acute intracranial pathology. 2. Chronic white matter small vessel ischemic changes. EXAMINATION: Noncontrast CT scan of the cervical spine. INDICATION: Altered mental status COMPARISON: CT cervical spine from 10/14/2022 TECHNIQUE: Helical, multidetector axial images were obtained from the occiput to the upper thorax. Coronal and sagittal reformats of the cervical spine were provided for interpretation. DLP: 1236 mGy-cm FINDINGS: No acute fractures or dislocations of the cervical spine are seen. Multilevel degenerative changes. Anatomic alignment and positioning of the vertebral bodies and posterior elements is noted. The atlantoaxial joint and craniovertebral articulations are normal without evidence of subluxation. There is no prevertebral soft tissue swelling. The thyroid gland and visualized portions of the lung apices and mediastinum are unremarkable. IMPRESSION: 1. No acute visible fracture or dislocation. 2. Multilevel degenerative changes. Abdomen/Pelvis CT 05/16/23 16:59 IMPRESSION: 1. Markedly distended urinary bladder to the level of the umbilicus. Mild fullness to the right collecting system and ureter but no obvious renal or ureteric calculi seen. 2. Mild fatty infiltration of the liver. 3. No peripancreatic inflammatory changes or fluid at this time. No pancreatic ductal dilatation. Discharge Plan Discharge Anticipated Discharge Date/Time: 05/18/23 11:11 Patient Disposition: Home Health Service Discharge Diagnosis: Low sodium altered mentation Referrals: Physician,Unknown J [Primary Care Provider] - 1 Week Discharge Medications: Continued (DME) FreeStyle Lite Strips Strip See Rx Instructions .Route Qty: 100 5RF Rx Instructions: Tests 4X/day (DME) blood-glucose meter [FreeStyle Lite Meter] Kit See Rx Instructions .ROUTE .MEDSUPPLY Qty: 1 0RF Rx Instructions: As directed 2x/day metformin 500 mg tablet 500 mg PO BID Qty: 60 1RF (DME) pen needle, diabetic [Unifine Pentips] 32 gauge x 5/32 needle 1 ea miscellaneous TID Qty: 100 1RF Rx Instructions: 4x daily (DME) FreeStyle Ni 2 Sensor Kit See Rx Instructions .ROUTE .COMPLEX Qty: 2 5RF Dose Instruction: As directed change every 14 days Rx Instructions: As directed change every 14 days lisinopril 10 mg tablet 10 mg PO DAILY Qty: 30 3RF aspirin [Adult Aspirin Regimen] 81 mg tablet,delayed release (DR/EC) 81 mg PO DAILY 30 Days Qty: 30 11RF acetaminophen [Tylenol Extra Strength] 500 mg Tablet 1,000 mg PO Q8H PRN (Reason: Pain) 30 Days Qty: 120 0RF (DME) lancets [FreeStyle Lancets] 28 gauge misc 1 gauge topical TID Qty: 100 11RF lorazepam 0.5 mg tablet 1 tab PO BEDTIME PRN (Reason: Anxiety) metoprolol tartrate 25 mg tablet 1 tab PO BID [id number] [Fioricet] 50-300-40 mg capsule 1 cap PO Q4-6H PRN (Reason: headache) Qty: 14 0RF multivitamin Tablet 1 tab PO DAILY atorvastatin 80 mg tablet 80 mg PO DAILY lamotrigine 200 mg tablet 200 mg PO DAILY polyvinyl alcohol [Artificial Tears (polyvin alc)] 1.4 % Drops 1 drp OPHTHALMIC (EYE) BID PRN (Reason: Dry Eye(S)) zinc oxide 20 % Ointment 1 appl TOPICAL BID PRN (Reason: Rash INTERGLUTERAL ) gabapentin 100 mg capsule 200 mg PO BID clotrimazole 1 % cream 1 appl topical BID PRN (Reason: Rash) insulin aspart U-100 100 unit/mL (3 mL) insulin pen 6 unit subcut BIDAC PRN (Reason: BG 200-250) insulin aspart U-100 [Novolog FlexPen U-100 Insulin] 100 unit/mL (3 mL) insulin pen 10 unit subcut BID PRN (Reason: BG . 250) insulin degludec [Tresiba FlexTouch U-200] 200 unit/mL (3 mL) insulin pen 28 unit subcut BEDTIME ibuprofen 800 mg tablet 800 mg PO TID PRN (Reason: Pain) Trulicity 0.75 mg/0.5 mL pen injector 0.75 mg subcut MO sertraline 100 mg tablet 150 mg PO DAILY hydrocortisone [Proctozone-HC] 2.5 % cream with perineal applicator 1 appl [place] BID PRN (Reason: Hemorrhoids) ammonium lactate 12 % lotion 1 appl topical DAILY (DME) FreeStyle Ni 2 Trilla Misc See Rx Instructions .Route Qty: 1 0RF Rx Instructions: As directed pantoprazole 40 mg tablet,delayed release (DR/EC) 40 mg PO DAILY docusate sodium 100 mg capsule 200 mg PO BEDTIME Qty: 180 3RF sennosides [Natural Senna Laxative] 8.6 mg tablet 8.6 mg PO BEDTIME Qty: 90 3RF aripiprazole 20 mg tablet 20 mg PO BEDTIME buspirone 10 mg tablet 10 mg PO TID Discharge Orders: Discharge Order (Routine); Ordered 05/18/23 Ordered By: Gloria Allen Diet: Advance to usual diet Activity on Discharge: As tolerated Stand Alone Forms: Patient Portal Discharge page Other Ambulatory Orders: Basic Metabolic Panel (Routine) Timeframe: 5 Days Facility: [facility] - Location: Laboratory Ordered By: Gloria Allen Care Plan Goals: Read below Health Concerns: Read below Plan of Treatment: Read below Assessment: You were treated for low sodium level with replacement and water management. Repeat blood test as outpatient Limit water intake to 1.2L daily Repeat blood test as outpatient Follow with dr Bingham as outpatient
--- NOTE | 2023-05-18 11:33 | W.MHC.F2F ---
Service Date Service Date: 05/18/23 Encounter Date of encounter: 05/18/23 Reasons for Services Signs and symptoms assessed: physical deconditioning Reason for physical therapy: home safety and mobility and therapeutic exercises Homebound: Leaving the home is medically contraindicated at this time without the asist of a device and/or another person due th the listed conditions above and below. Reason homebound: unsteady gait / fall risk Certification: Based on the above findings, I certify that this patient is confined to the home and needs intermittent long term care, physical therapy and/or speech therapy, or continues to need occupational therapy. The patient is under my care, and I have initiated the establishment of the plan of care. The patient will be followed by a physician who will periodically review the plan of care. Time Spent With Patient Time: Total time managing care of this patient today ____ minutes.
[2023-05-18 12:13] LABS: Glucose, Whole Blood 126 mg/dL (60-115)
--- NOTE | 2023-05-18 12:48 | MHC.CM.PN ---
PT MEDICALLY CLEARED FOR DC HOME W/NEW HOME PT W/[facility], PT'S SON DOC FOR TRANSPORT AFTER HE GETS OUT OF WORK AT 3PM.
--- NOTE | 2023-05-18 13:13 | P.PNNP_ITS ---
Subjective Subjective Date of Service: 05/18/23 Interval history: Events noted. All recent data reviewed Physical Exam 2 Vital Signs: Vital Signs: Last Vital Signs Temp 97.3 F 05/18/23 07:51 Pulse 75 05/18/23 07:51 Resp 18 05/18/23 07:51 BP 146/68 H 05/18/23 07:51 Pulse Ox 96 05/18/23 07:51 O2 Del Method Room Air 05/18/23 07:51 BMI result Body Mass Index 25.9 Const: General: comfortable and no acute distress O rientation/consciousness: patient oriented x3 HEENT: Head: Yes normocephalic Mouth: Normal oral and palatal mucosa present Eyes: EOM: EOMs intact bilaterally Neck: Neck: Yes supple Resp: Auscultation: clear to auscultation bilaterally Cardio: Jugular venous distension: no JVD Rate: regular rate GI: Palpation (GI): Soft to palpation Auscultation: normal bowel sounds : General: Yes no CVA tenderness Back/Spine/Pelvis: Back: no CVA tenderness Skin: General skin exam: no rashes or lesions noted Neuro: General: patient oriented x3 and moves all extremities Extrem: General: Yes no pedal edema Objective Data Labs 05/17/23 06:07 05/18/23 05:20 Labs: Laboratory Results - last 24 hr 05/17/23 05/17/23 05/17/23 12:46 19:38 19:46 Sodium 127 L Potassium 4.1 Chloride 94 L Carbon Dioxide 24 Anion Gap 13 BUN Creatinine Estim Creat Clear Calc Estimated GFR POC Glucose 189 H Random Glucose Calcium Lipase 30 TSH Random Cortisol 05/17/23 05/18/23 05/18/23 21:14 05:20 07:49 Sodium 132 L Potassium 4.4 Chloride 96 Carbon Dioxide 27 Anion Gap 13 BUN 11 Creatinine 0.75 Estim Creat Clear Calc 64.0 Estimated GFR > 60 POC Glucose 276 H 155 H Random Glucose 139 H Calcium 10.0 D Lipase TSH 2.32 Random Cortisol 12.6 05/18/23 12:07 Sodium Potassium Chloride Carbon Dioxide Anion Gap BUN Creatinine Estim Creat Clear Calc Estimated GFR POC Glucose 126 H Random Glucose Calcium Lipase TSH Random Cortisol Microbiology Microbiology Results: Microbiology 05/16/23 12:03 Blood - Venous Blood Culture - Preliminary No growth after 24 hours. 05/16/23 11:43 Blood - Venous Blood Culture - Preliminary No growth after 24 hours. Procedures Date of Service Date of Service: 05/18/23 Assessment & Plan Assessment and plan (1) Hyponatremia: Status: Acute Plan Hyponatremia likely multifactorial BS needs to be better controlled consistently Has excess ADH at baseline Euvolemic. Serum Na improving Was given NaCl tablets for one day Cortisol/TSH - OK Immunofixation pending Mentation is at baseline now Renal function/Liver function normal No signs of CHF; C/W rest of current management Shall closely follow up in office when D/Earl Progress Note: Quality Stroke Does the patient have a stroke diagnosis?: No
[2023-05-20 16:08] LABS: IgA 201 mg/dL (70-320); IgG 1163 mg/dL (600-1540); IgM 289 mg/dL (50-300)
== END 2023-05-18 15:43 | disposition home or self-care (01) | DRG 640 ==
LOC: HO.ED 17:48 → HO.EDOVER 18:33 → HO.S3 05-17 19:41
PROVIDERS: Internal Medicine Nephrology; Physician Assistant Medical; Admitting Provider Internal Medicine; Emergency Provider Emergency Medicine; PCP Internal Medicine; Visit Provider Student in an Organized Health Care Education/Training Program
DX: E87.1 Hypo-osmolality and hyponatremia (principal); G93.41 Metabolic encephalopathy; E83.42 Hypomagnesemia; I25.10 Atherosclerotic heart disease of native coronary artery without angina pectoris; I12.9 Hypertensive chronic kidney disease with stage 1 through stage 4 chronic kidney disease, or unspecified chronic kidney disease; E11.22 Type 2 diabetes mellitus with diabetic chronic kidney disease; N18.30 Chronic kidney disease, stage 3 unspecified; F43.10 Post-traumatic stress disorder, unspecified; F03.90 Unspecified dementia, unspecified severity, without behavioral disturbance, psychotic disturbance, mood disturbance, and anxiety; F25.9 Schizoaffective disorder, unspecified; F17.210 Nicotine dependence, cigarettes, uncomplicated; Z20.822 Contact with and (suspected) exposure to COVID-19; Z71.6 Tobacco abuse counseling; Z79.4 Long term (current) use of insulin; Z79.84 Long term (current) use of oral hypoglycemic drugs; Z79.85 Long-term (current) use of injectable non-insulin antidiabetic drugs; Z79.899 Other long term (current) drug therapy
CPT/HCPCS: 0241U; 36415; 70450; 71045; 72125; 74177; 80048; 80051; 80076; 80307; 81001; 82140; 82533; 82784; 82947; 83690; 83735; 83930; 84443; 84484; 85025; 85027; 86334; 87040; 93005; 97162; 99285; J1650; J2597; J3475; Q9967

== ENCOUNTER → 2023-05-16 10:57 | Outpatient (BNV) | payer MEDICARE, MEDICAID, SELFPAY | PROVIDERS: Admitting Provider Internal Medicine; Emergency Provider Emergency Medicine; Visit Provider Internal Medicine | DX: I45.2 Bifascicular block (principal) | CPT/HCPCS: 93010 ==

== ENCOUNTER → 2023-05-16 18:28 | Outpatient (BNV) | payer MEDICARE, MEDICAID, SELFPAY | PROVIDERS: Admitting Provider Internal Medicine; Emergency Provider Emergency Medicine; Visit Provider Internal Medicine Nephrology | DX: E87.1 Hypo-osmolality and hyponatremia (principal) | CPT/HCPCS: 99222; 99232 ==

== ENCOUNTER → 2023-05-16 18:28 | Outpatient (BNV) | payer MEDICARE, MEDICAID, SELFPAY | PROVIDERS: Admitting Provider Internal Medicine; Emergency Provider Emergency Medicine; Visit Provider Social Worker | DX: F25.0 Schizoaffective disorder, bipolar type (principal) | CPT/HCPCS: 99232 ==

== ENCOUNTER → 2023-05-16 18:28 | Outpatient (BNV) | payer MEDICARE, MEDICAID, SELFPAY | PROVIDERS: Admitting Provider Internal Medicine; Emergency Provider Emergency Medicine; Visit Provider Internal Medicine | DX: E87.1 Hypo-osmolality and hyponatremia (principal); E83.42 Hypomagnesemia; G93.41 Metabolic encephalopathy | CPT/HCPCS: 99223; 99232; 99239; G0180 ==

== ENCOUNTER 2023-05-26 10:44 | Outpatient (AMB) | payer MEDICARE, MEDICAID, SELFPAY ==
--- NOTE | 2023-05-26 10:47 | MHC.OFFVIS ---
Intake Vital Signs 05/26/23 10:55 Height 5 ft 2 in Intake Visit Reasons: N/problem LB pain Intake Note: Celeste 68 yr old female presents today for a new problem visit for her lower back pain. Last seen with Ericka Alonso who referred patient with Dr. Altamirano for an evaluation. The patient endorses pain and has radicular symptoms to bilateral lower extremities with accompanied weakness. States her pain has worsen in the last 3 weeks, numbness and tingling in toes. She wear a OTC brace she purchased with some relief. Denies any injury. She does use a walker to ambulate as well. Allergies duloxetine [Cymbalta] Allergy (Unknown, Verified 05/26/23 10:55) Unknown hydroxyzine Allergy (Unknown, Verified 05/26/23 10:55) unknown risperidone Allergy (Unknown, Verified 05/26/23 10:55) Unknown trazodone Allergy (Unknown, Verified 05/26/23 10:55) Unknown quetiapine [From SEROQUEL] Adverse Reaction (Severe, Verified 05/26/23 10:55) Acute Dystonic reaction HPI HPI Comments History of Present Illness Details Depression with anxiety, Schizoaffective disorder, PTSD (post-traumatic stress disorder), Dementia, CAD (coronary artery disease), Type 2 diabetes mellitus with chronic kidney disease, Chronic kidney disease, stage 3 unspecified, Type 2 diabetes mellitus with diabetic polyneuropathy, Essential hypertension, Dyslipidemia. Here with [facility] outreach working, who translated for her. Says back pain only for 3 weeks, consistent daily. Midline and goes across to both sides. Goes to both legs, pointing to thighs, says all the ways down to feet . Numbness both feet. Denies falls. She saw orthopedics for knee pain - she does not seem to remember and does not indicate which knee was hurting. She was recently discharged from [facility], which she does remember and says it was due to her mental health. No past injections or surgery. She has VNA and PCT but does get home PT services. [facility] Medical History (Updated 05/26/23 @ 11:17 by Lauren Han MD) Disc degeneration, lumbar Dermatophytosis Dermatitis Joint pain Depression with anxiety Schizoaffective disorder PTSD (post-traumatic stress disorder) Dementia Smoking CAD (coronary artery disease) Type 2 diabetes mellitus with chronic kidney disease Chronic kidney disease, stage 3 unspecified Type 2 diabetes mellitus with diabetic polyneuropathy Essential hypertension Dyslipidemia Diabetes mellitus with hyperglycemia Surgical History Hx of colonoscopy Hx of cataract surgery Hx of tubal ligation Hx of section Family History Father No problems noted. Mother No problems noted. Social History Household Members: None Household Members Other:: has [facility] Services Housing: Apartment Do you presently have visiting nurse or other home services: Yes Alcohol intake: former Patient Tobacco Use Status: Current everyday Tobacco user Tobacco use type: Cigarette Cigarette Packs Per Day: 1 Cigarettes Per Day: 4 Second Hand Smoke Exposure: No Advance Directives Date on File: 09/30/20 service: No Sexual orientation: Straight/Heterosexual Review of Systems Const All systems reviewed & are unremarkable except as noted in HPI and below Physical Exam Constitutional: Patient appears to be in no acute distress, well nourished and well developed. Patient was appropriately conversant and oriented. MSK: No specific abnormalities found on inspection of the spine and all extremities. Lumbar ROM was full. Antalgic gait. Difficulty getting up from seated position. Straight-leg raising test negative. FABERE test positive bilateral. No increased tone noted. Neurological: 4/5 BLE. Lawson?s negative bilaterally. Babinski was down going bilaterally. Clonus was negative. Gait is antalgic without loss of balance. Results Reviewed Results Reviewed: I independently reviewed the results of the following: L3-4 and L5-S1 shows disc bulge with foraminal stenosis. Ordering Physician: JOANNA FLORES NP Date of Service: 04/28/20 Procedure(s): MR lumbar spine wo con Accession Number(s): [id number] cc: JOANNA FLORES NP~ EXAMINATION: MR LUMBAR SPINE WITHOUT CONTRAST CLINICAL INFORMATION: Acute flare-up of chronic low back pain. COMPARISON: CT lumbar spine 03/16/2019 TECHNIQUE: MRI of the lumbar spine was obtained using routine sequences without contrast. FINDINGS: There is normal lumbar lordosis. There is loss of L3-L4 and L5-S1 disc heights with degenerative disc changes. The rest of the disc heights and disc signal is normal. At L1-L2 and L2-L3 disc levels there is no significant disc bulge, herniation or spinal stenosis. The neural foramina are patent bilaterally. At L3-L4 disc level there is a broad-based moderate diffuse bulge flattening the ventral thecal sac with minimal circumferential canal stenosis. There is bilateral moderate narrowing of neural foramina from underlying facet joint arthropathy and mild ligament flavum hypertrophy. At L4-L5 disc level there is mild diffuse bulge flattening of the ventral thecal sac without spinal canal stenosis. There is mild bilateral facet joint and ligament flavum hypertrophy resulting in mild bilateral spinal canal stenosis. No disc herniation seen. At L5-S1 disc level there is combination of posterior disc bulge/spondylosis complex without spinal canal stenosis. There is severe bilateral neural foraminal narrowing from underlying disc bulge/spondylosis complex. There is hvijmiic-go-gurfen bilateral facet joint arthropathy and hypertrophy. Mild endplate changes are seen at the L5-S1 and L3-L4 disc levels. The rest of the bone marrow signal is normal. Conus medullaris terminates at L1-L2 disc level. MR/MR lumbar spine wo con IMPRESSION: 1. Broad-based moderate diffuse bulge L3-L4 disc level with minimal circumferential canal stenosis and moderate bilateral neural foraminal narrowing. 2. Disc bulge/osteophyte complex L5-S1 disc level without spinal canal stenosis. There is severe bilateral neural from narrowing. 3. Degenerative disc changes with vacuum disc phenomena and endplate changes at the L3-L4 and L5-S1 disc levels. I reviewed records from the following: Reviewed ortho notes. Recently discharged from hospital 05/18/23: Hospital Course: Admission note HPI 68 year old female with Depression with anxiety, Schizoaffective disorder, PTSD (post-traumatic stress disorder), Dementia, CAD (coronary artery disease), Type 2 diabetes mellitus with chronic kidney disease, Chronic kidney disease, stage 3 unspecified, Type 2 diabetes mellitus with diabetic polyneuropathy, Essential hypertension, Dyslipidemia who brought to the ED after her BILL OF LADING CLERK noted her to have high blood pressure and confused. She tells me she lives alone and has a BILL OF LADING CLERK and had morning and evening nurses coming every dorian, she is not able to tell me why she is here but is aware that she is [facility]. I spoke to her son Fahad who colaborated her story that she lives alone and has BILL OF LADING CLERK and daily visiting nurses. Her son states that she saw her 2 days ago and she seemed ok other her saying that she wasn't sleeping because she has been drinking coffee at night. Work up has included UA showing no infection, CT head and cervical spine unremarkable. BMP show sodium of 123 and magnesium is only 1.3, lipase of 296 no abdominal pain--labs were done at 11 and not yet repeated. Else she has no diarrhea, no fever or chils, no chest pain, no sob, no dizziness. Hospital course The patient was admitted for evaluation of acute Metabolic encephalopathy due to hyponatremia. she was treated with fluids and Sodium lauren quickly from 123 to 136 in 6 hours and therefore was given D5W, DDAVP with fair response. Nephrology evaluated her and she was started on salt tablets. started on water restriction for 1.5L with fair response as sodium corrected back to 132 on the day of discharge with resolving encephalopathy as patient went back to her baseline status. seen by psychiatry for possible change in SSRI but will likely be followed as outpatient to complete work up. nephrology to follow as outpatient. Hypomagenesmia was corrected with IV mag Diabetes under fair control using lower doses of Lantus , SSI and resuming his home dose Metformin. Limit water intake to 1.2L daily Repeat blood test as outpatient Follow with dr Bingham as outpatient Only take 10 units of Lantus tonight then back to your home dose starting tomorrow Assessment & Plan Assessment & Plan (1) Disc degeneration, lumbar: Code(s): M51.36 - Other intervertebral disc degeneration, lumbar region (2) Leg weakness: Code(s): R29.898 - Other symptoms and signs involving the musculoskeletal system Qualifiers: Laterality: bilateral Qualified Code(s): R29.898 - Other symptoms and signs involving the musculoskeletal system Plan MRI lumbar spine 2020 showed disc bulge L3-4 and L5-S1 most notably with foraminal stenosis. Due to decline in her gait and back pain, would be reasonable to repeat MRI and evaluate for worsening lumbar spinal stenosis. MRI ordered. Concerned for her gait and safety at home. She already has VNA services. Will refer/add home PT. Assessment and plan discussed with patient, and patient was agreeable. All questions were answered thoroughly. Lauren Han MD, LUNA Board Certified, [place] Board of Physical Medicine and Rehabilitation (ABPMR) Board Certified, [place] Board of Electrodiagnostic Medicine (ABEM) Orders: Orders MR lumbar spine wo con Today M54.16 - Radiculopathy, lumbar region Referrals [facility] Nurse Association/Hospice Referral M51.36 - Other intervertebral disc degeneration, lumbar region, R29.898 - Other symptoms and signs involving the musculoskeletal system Coding Level of Care Code New Pt Level 4 (20983) Diagnoses Disc degeneration, lumbar M51.36 Weakness of both lower extremities R29.898 Laterality: bilateral
== END 2023-05-26 11:15 | disposition home or self-care (01) ==
PROVIDERS: PCP Internal Medicine; Visit Provider Physical Medicine & Rehabilitation
DX: M51.36 Other intervertebral disc degeneration, lumbar region (principal); R29.898 Other symptoms and signs involving the musculoskeletal system
CPT/HCPCS: 99204

== ENCOUNTER → 2023-05-26 10:44 | Outpatient (BNVA) | payer MEDICARE, MEDICAID, SELFPAY | PROVIDERS: PCP Internal Medicine; Visit Provider Physical Medicine & Rehabilitation | DX: M51.36 Other intervertebral disc degeneration, lumbar region (principal); R29.898 Other symptoms and signs involving the musculoskeletal system | CPT/HCPCS: 99202 ==

== ENCOUNTER 2023-06-01 15:50 | Emergency (ER) | payer MEDICARE, MEDICAID, SELFPAY ==
--- NOTE | ~2023-06-01 | CT_ITS ---
EXAMINATION: CT HEAD WITHOUT CONTRAST CLINICAL INFORMATION: [facility] COMPARISON: CT brain 05/16/2023. TECHNIQUE: Contiguous axial imaging was performed from the skull base to vertex without intravenous administration of contrast. This CT examination was performed using dose optimization techniques as appropriate, variously including the following: *Automated exposure control *Adjustment of mA and/or kV according to patient size (this includes techniques or standardized protocols for targeted exams where dose is matched to indication/reason for exam; i.e. extremities or head) *Use of iterative reconstruction technique DLP: 562 mGy-cm FINDINGS: There is no acute intra-axial, extra-axial bleed, masses or midline shift. There is no acute infarction in evolution. There is no edema. The franco to white matter differentiation is maintained normal. The lateral ventricles are symmetrical in size and configuration but mildly enlarged. Bone windows reveal no calvarial abnormality. There is no scalp soft tissue normality. There is mild mucoperiosteal thickening bilateral sphenoid sinuses. Rest of the paranasal sinuses are well-aerated. CT/CT head/brain wo IV con IMPRESSION: No acute intracranial process seen. Chronic bilateral sphenoid sinus inflammatory changes. It is unchanged to previous study 05/16/2023
--- NOTE | 2023-06-01 15:57 | ED.GENADULT ---
HPI - General Adult General Chief complaint: Neuro Symptoms/Deficit Stated complaint: speech problem Related Data Home Medications ?Medication ?Instructions ?Recorded ?Confirmed lorazepam 0.5 mg tablet 1 tab PO BEDTIME PRN Anxiety 11/07/21 05/16/23 metoprolol tartrate 25 mg tablet 1 tab PO BID 11/07/21 05/16/23 pantoprazole 40 mg tablet,delayed 40 mg PO DAILY 05/19/22 05/16/23 release ammonium lactate 12 % lotion 1 appl topical DAILY 06/16/22 05/16/23 hydrocortisone 2.5 % topical cream 1 appl AL BID PRN Hemorrhoids 06/16/22 05/16/23 with perineal applicator (Proctozone-HC) sertraline 100 mg tablet 150 mg PO DAILY 06/16/22 05/16/23 aripiprazole 20 mg tablet 20 mg PO BEDTIME 09/07/22 05/16/23 buspirone 10 mg tablet 10 mg PO TID 09/07/22 05/16/23 atorvastatin 80 mg tablet 80 mg PO DAILY 05/16/23 05/16/23 clotrimazole 1 % topical cream 1 appl topical BID PRN Rash 05/16/23 05/16/23 dulaglutide 0.75 mg/0.5 mL 0.75 mg subcut MO 05/16/23 05/17/23 subcutaneous pen injector (Trulicity) gabapentin 100 mg capsule 200 mg PO BID 05/16/23 05/16/23 ibuprofen 800 mg tablet 800 mg PO TID PRN Pain 05/16/23 05/16/23 insulin aspart U-100 100 unit/mL 6 unit subcut BIDAC PRN BG 200-250 05/16/23 05/16/23 (3 mL) subcutaneous pen insulin aspart U-100 100 unit/mL 10 unit subcut BID PRN BG . 250 05/16/23 05/16/23 (3 mL) subcutaneous pen (Novolog FlexPen U-100 Insulin aspart) insulin degludec 200 unit/mL (3 28 unit subcut BEDTIME 05/16/23 05/16/23 mL) subcutaneous pen (Tresiba FlexTouch U-200 insulin) lamotrigine 200 mg tablet 200 mg PO DAILY 05/16/23 05/16/23 multivitamin 1 tab PO DAILY 05/16/23 05/16/23 polyvinyl alcohol 1.4 % eye drops 1 drp ophthalmic (eye) BID PRN Dry 05/16/23 05/16/23 (Artificial Tears (polyvinyl Eye(S) alcohol)) zinc oxide 20 % topical ointment 1 appl topical BID PRN Rash 05/16/23 05/16/23 INTERGLUTERAL Previous Rx's ?Medication ?Instructions ?Recorded acetaminophen 500 mg tablet 1,000 mg (2 x 500 mg) PO Q8H PRN 10/09/20 (Tylenol Extra Strength) Pain 30 days #120 tabs aspirin 81 mg tablet,delayed 81 mg PO DAILY 30 days #30 tabs 10/09/20 release (Adult Aspirin Regimen) lancets 28 gauge (FreeStyle #100 ea 10/09/20 Lancets) blood sugar diagnostic (FreeStyle #100 ea 01/05/22 Lite Strips) blood-glucose meter (FreeStyle #1 ea 01/05/22 Lite Meter kit) metformin 500 mg tablet 500 mg PO BID #60 tabs 01/05/22 pen needle, diabetic 32 gauge x #100 ea 01/05/2232 (Unifine Pentips) docusate sodium 100 mg capsule 200 mg (2 x 100 mg) PO BEDTIME 05/19/22 #180 caps sennosides 8.6 mg tablet (Natural 8.6 mg PO BEDTIME constipation #90 05/19/22 Senna Laxative) tabs flash glucose scanning reader #1 ea 06/16/22 (FreeStyle Ni 2 [place]) dcqbjohxxw-uysfyjlrdppdr-swdzenem 1 cap PO Q4-6H PRN headache #14 10/14/22 50 mg-300 mg-40 mg capsule caps (Fioricet) flash glucose sensor (FreeStyle #2 kits 12/09/22 Ni 2 Sensor kit) lisinopril 10 mg tablet 10 mg PO DAILY #30 tabs 12/10/22 Allergies Allergy/AdvReac Type Severity Reaction Status Date / Time duloxetine [Cymbalta] Allergy Unknown Unknown Verified 05/26/23 10:55 hydroxyzine Allergy Unknown unknown Verified 05/26/23 10:55 risperidone Allergy Unknown Unknown Verified 05/26/23 10:55 trazodone Allergy Unknown Unknown Verified 05/26/23 10:55 quetiapine [From SEROQUEL] AdvReac Severe Acute Verified 05/26/23 10:55 Dystonic reaction [facility] Past Medical History Medical History (Updated 06/05/23 @ 19:53 by BARON Escudero) Disc degeneration, lumbar Dermatophytosis Dermatitis Joint pain Depression with anxiety Schizoaffective disorder PTSD (post-traumatic stress disorder) Dementia Smoking CAD (coronary artery disease) Type 2 diabetes mellitus with chronic kidney disease Chronic kidney disease, stage 3 unspecified Type 2 diabetes mellitus with diabetic polyneuropathy Essential hypertension Dyslipidemia Diabetes mellitus with hyperglycemia Surgical History Hx of colonoscopy Hx of cataract surgery Hx of tubal ligation Hx of section Family History Family History Father No problems noted. Mother No problems noted. Social History Social History Household Members: None Household Members Other:: has [facility] Services Housing: Apartment Do you presently have visiting nurse or other home services: Yes Alcohol intake: former Patient Tobacco Use Status: Current everyday Tobacco user Tobacco use type: Cigarette Cigarette Packs Per Day: 1 Cigarettes Per Day: 4 Second Hand Smoke Exposure: No Advance Directives Date on File: 09/30/20 service: No Sexual orientation: Straight/Heterosexual Physical Exam ED Vital Signs: Vital Signs - 24 hr 06/01/23 15:58 Temperature 97.4 F Pulse Rate 74 Respiratory Rate 20 Blood Pressure 128/48 L Pulse Oximetry 96 Oxygen Delivery Method Room Air BMI result Body Mass Index 26.4 Course Course Course Narrative: This is an RME: Additional HPI, ROS, PE not included below will be deferred to primary provider. 68-year-old female, with a past medical history of dementia, diabetes, CKD, CAD, dementia, schizoaffective disorder, PTSD, and hypertension, who presents emergency department with complaints of increased confusion. She states that she is been confused and having difficulty with word finding since she was discharged about 1 week ago. Patient is alert oriented to person place and vague to time. Slow to respond with asked questions. Automobile Mechanic Apprentice states that she noticed slurred speech and confusion today. Unknown last well. Patient was admitted several weeks ago due to encephalopathy and hyponatremia. Further ER evaluation needed. Plan labs, CT head and neck further ER evaluation needed Reevaluation(s) Reevaluation #1: Patient left prior to completing treatment Medical Decision Making Lab Data 06/01/23 16:27 06/01/23 16:27 Labs: Lab Results 06/01/23 Range/Units 16:27 WBC 11.3 H (4.8-10.8) X10*3/uL RBC 4.49 (4.20-5.50) X10*6/uL Hgb 12.3 (12.0-16.0) g/dl Hct 36.5 L (37.0-47.0) % MCV 81.3 (80.0-98.0) fL MCH 27.4 (27.0-33.0) pg MCHC 33.7 (31.0-35.0) g/dl RDW 13.2 (11.0-16.0) % Plt Count 226 D (160-400) X10*3/uL MPV 11.3 (9.4-12.3) fL Immature Gran % (Auto) 0.3 (0.0-0.4) % Neut % (Auto) 46.7 (45-73) % Lymph % (Auto) 44.0 H (20-40) % [place] % (Auto) 6.6 (2-11) % Eos % (Auto) 1.8 (0-4) % Baso % (Auto) 0.6 (0-2) % Lymph # (Auto) 5.0 H (1.2-4.9) X10*3/uL [place] # (Auto) 0.8 (0.1-1.2) X10*3/uL Eos # (Auto) 0.2 (0.0-0.4) X10*3/uL Baso # (Auto) 0.1 (0.0-0.2) X10*3/uL Abs Immat Gran (auto) 0.03 (0.00-0.03) X10*3/uL Absolute Neuts (auto) 5.3 (2.0-8.3) x10*3/uL Absolute Nucleated RBC 0.000 (0.0-0.012) X10*3/uL Nucleated RBC % (auto) 0.0 (0.0-0.2) /100WBC Sodium 134 L (135-145) mmol/L Potassium 4.0 (3.3-5.1) mmol/L Chloride 99 (96-108) mmol/L Carbon Dioxide 29 (22-29) mmol/L Anion Gap 10 L (12-20) BUN 11 (9-16) mg/dL Creatinine 0.80 (0.5-1.4) mg/dL Estim Creat Clear Calc 58.2 Estimated GFR > 60 Random Glucose 236 H (60-115) mg/dL Calcium 10.3 H (8.4-10.2) mg/dL Magnesium 1.5 L (1.6-2.6) mg/dL Total Bilirubin 0.2 (0.0-1.0) mg/dL Direct Bilirubin < 0.2 (0.0-0.5) mg/dL AST 19 (5-31) U/L ALT 17 (0-31) U/L Alkaline Phosphatase 78 (39-117) U/L Ammonia 19 (13-55) umol/L Troponin I High Sens 3.5 D (<3.5-17.0) ng/L Total Protein 7.3 (6.5-8.0) g/dL Albumin 4.0 (3.5-5.0) g/dL Lipase 36 (8-78) U/L Discharge Plan Discharge Clinical Impression: Confusion Patient Disposition: Left W/O Completing Treatment Prescriptions: No Action (DME) FreeStyle Lite Strips Strip See Rx Instructions .Route Qty: 100 5RF Rx Instructions: Tests 4X/day (DME) blood-glucose meter [FreeStyle Lite Meter] Kit See Rx Instructions .ROUTE .MEDSUPPLY Qty: 1 0RF Rx Instructions: As directed 2x/day metformin 500 mg tablet 500 mg PO BID Qty: 60 1RF (DME) pen needle, diabetic [Unifine Pentips] 32 gauge x 5/32 needle 1 ea miscellaneous TID Qty: 100 1RF Rx Instructions: 4x daily (DME) FreeStyle Ni 2 Sensor Kit See Rx Instructions .ROUTE .COMPLEX Qty: 2 5RF Dose Instruction: As directed change every 14 days Rx Instructions: As directed change every 14 days lisinopril 10 mg tablet 10 mg PO DAILY Qty: 30 3RF aspirin [Adult Aspirin Regimen] 81 mg tablet,delayed release (DR/EC) 81 mg PO DAILY 30 Days Qty: 30 11RF acetaminophen [Tylenol Extra Strength] 500 mg Tablet 1,000 mg PO Q8H PRN (Reason: Pain) 30 Days Qty: 120 0RF (DME) lancets [FreeStyle Lancets] 28 gauge misc 1 gauge topical TID Qty: 100 11RF lorazepam 0.5 mg tablet 1 tab PO BEDTIME PRN (Reason: Anxiety) metoprolol tartrate 25 mg tablet 1 tab PO BID vulvbumicv-silvkrcycidfe-elzm [Fioricet] 50-300-40 mg capsule 1 cap PO Q4-6H PRN (Reason: headache) Qty: 14 0RF multivitamin Tablet 1 tab PO DAILY atorvastatin 80 mg tablet 80 mg PO DAILY lamotrigine 200 mg tablet 200 mg PO DAILY polyvinyl alcohol [Artificial Tears (polyvin alc)] 1.4 % Drops 1 drp OPHTHALMIC (EYE) BID PRN (Reason: Dry Eye(S)) zinc oxide 20 % Ointment 1 appl TOPICAL BID PRN (Reason: Rash INTERGLUTERAL ) gabapentin 100 mg capsule 200 mg PO BID clotrimazole 1 % cream 1 appl topical BID PRN (Reason: Rash) insulin aspart U-100 100 unit/mL (3 mL) insulin pen 6 unit subcut BIDAC PRN (Reason: BG 200-250) insulin aspart U-100 [Novolog FlexPen U-100 Insulin] 100 unit/mL (3 mL) insulin pen 10 unit subcut BID PRN (Reason: BG . 250) insulin degludec [Tresiba FlexTouch U-200] 200 unit/mL (3 mL) insulin pen 28 unit subcut BEDTIME ibuprofen 800 mg tablet 800 mg PO TID PRN (Reason: Pain) Trulicity 0.75 mg/0.5 mL pen injector 0.75 mg subcut MO sertraline 100 mg tablet 150 mg PO DAILY hydrocortisone [Proctozone-HC] 2.5 % cream with perineal applicator 1 appl AL BID PRN (Reason: Hemorrhoids) ammonium lactate 12 % lotion 1 appl topical DAILY (DME) FreeStyle Ni 2 [place] Misc See Rx Instructions .Route Qty: 1 0RF Rx Instructions: As directed pantoprazole 40 mg tablet,delayed release (DR/EC) 40 mg PO DAILY docusate sodium 100 mg capsule 200 mg PO BEDTIME Qty: 180 3RF sennosides [Natural Senna Laxative] 8.6 mg tablet 8.6 mg PO BEDTIME Qty: 90 3RF aripiprazole 20 mg tablet 20 mg PO BEDTIME buspirone 10 mg tablet 10 mg PO TID Discharge Date/Time: 06/01/23 20:21
[2023-06-01 15:58] VITALS: BP 128/48; PULSE 74; RESP 20; TEMP 36.3; O2SAT 96; BMI 26.4
[2023-06-01 16:32] LABS: MANUAL DIFF FLAG NO
[2023-06-01 16:37] LABS: Basophils Absolute Auto 0.1 X10*3/uL (0.0-0.2); Basophils Percent Auto 0.6 % (0-2); Eosinophils Absolute Auto 0.2 X10*3/uL (0.0-0.4); Eosinophils Percent Auto 1.8 % (0-4); Hematocrit 36.5 % (37.0-47.0); Hemoglobin 12.3 g/dl (12.0-16.0); Imm Gran Abs Auto 0.03 X10*3/uL (0.00-0.03); Imm Gran Pct Auto 0.3 % (0.0-0.4); Mean Corpuscular HGB Conc 33.7 g/dl (31.0-35.0); Mean Corpuscular Hemoglobin 27.4 pg (27.0-33.0); Mean Corpuscular Volume 81.3 fL (80.0-98.0); Mean Platelet Volume 11.3 fL (9.4-12.3); Monocytes Absolute Auto 0.8 X10*3/uL (0.1-1.2); Monocytes Percent Auto 6.6 % (2-11); Neutrophils Absolute Auto 5.3 x10*3/uL (2.0-8.3); Neutrophils Percent Auto 46.7 % (45-73); Platelet Count 226 X10*3/uL (160-400); Red Blood Count 4.49 X10*6/uL (4.20-5.50); Red Cell Distribution Width 13.2 % (11.0-16.0); White Blood Count 11.3 X10*3/uL (4.8-10.8)
[2023-06-01 16:44] LABS: Ammonia 19 umol/L (13-55)
[2023-06-01 16:51] LABS: Alanine Aminotransferase 17 U/L (0-31); Alkaline Phosphatase 78 U/L (39-117); Anion Gap 10 (12-20); Aspartate Amino Transferase 19 U/L (5-31); Bilirubin Direct < 0.2 mg/dL (0.0-0.5); Bilirubin Total 0.2 mg/dL (0.0-1.0); Blood Urea Nitrogen 11 mg/dL (9-16); Calcium 10.3 mg/dL (8.4-10.2); Carbon Dioxide 29 mmol/L (22-29); Chloride 99 mmol/L (96-108); Creatinine Clr Calc Pharmacy 58.2; Estimated Glomerular Filt Rate > 60; Glucose Random 236 mg/dL (60-115); Lipase 36 U/L (8-78); Magnesium 1.5 mg/dL (1.6-2.6); Sodium 134 mmol/L (135-145); Total Protein 7.3 g/dL (6.5-8.0)
[2023-06-01 16:58] LABS: Troponin-I High Sensitivity 3.5 ng/L (<3.5-17.0)
--- NOTE | 2023-06-01 19:37 | PC.NURSE ---
pt not in waiting room at this time.
== END 2023-06-01 20:21 | disposition left against medical advice (07) ==
LOC: HO.ED 20:21
PROVIDERS: Physician Assistant Medical; Emergency Provider Emergency Medicine; PCP Internal Medicine
DX: R41.0 Disorientation, unspecified (principal); F03.90 Unspecified dementia, unspecified severity, without behavioral disturbance, psychotic disturbance, mood disturbance, and anxiety; E11.22 Type 2 diabetes mellitus with diabetic chronic kidney disease; I12.9 Hypertensive chronic kidney disease with stage 1 through stage 4 chronic kidney disease, or unspecified chronic kidney disease; N18.30 Chronic kidney disease, stage 3 unspecified
CPT/HCPCS: 36415; 70450; 80048; 80076; 82140; 83690; 83735; 84484; 85025; 99281; 99284

== ENCOUNTER 2023-06-03 12:53 | Outpatient (REF) | payer MEDICARE, MEDICAID, SELFPAY ==
--- NOTE | ~2023-06-03 | XR_ITS ---
EXAMINATION: XR HIP, LEFT CLINICAL INFORMATION: Left hip pain COMPARISON: None available. TECHNIQUE: Three views of the left hip. FINDINGS: Alignment is anatomic. Hip joint space is maintained. There is a subtle ill-defined lucencies projected over the base of the femoral neck/intertrochanteric region. A subtle undisplaced fracture cannot be excluded. The visualized pubic rami intact. Symphysis pubis is intact. Visualized left SI joint is intact. Soft tissues are unremarkable. XR/XR hip LT min 2V IMPRESSION: Ill-defined lucencies projected over the base of the femoral neck/intertrochanteric region. An Ill-defined undisplaced fracture cannot be excluded. Consider MRI evaluation, which is more sensitive. The report will be called to the ordering clinician by a [facility] Tissue Rewinder.
[2023-06-03 17:39] LABS: Anion Gap 10 (12-20); Blood Urea Nitrogen 9 mg/dL (9-16); Calcium 10.1 mg/dL (8.4-10.2); Carbon Dioxide 28 mmol/L (22-29); Chloride 99 mmol/L (96-108); Estimated Glomerular Filt Rate > 60; Glucose Random 43 mg/dL (60-115); Magnesium 1.5 mg/dL (1.6-2.6); Potassium 3.9 mmol/L (3.3-5.1); Sodium 133 mmol/L (135-145)
== END 2023-06-03 12:54 | disposition home or self-care (01) ==
LOC: HO.HHCL 12:53
PROVIDERS: Visit Provider Internal Medicine
DX: M25.552 Pain in left hip (principal); E87.1 Hypo-osmolality and hyponatremia; Z74.2 Need for assistance at home and no other household member able to render care; Z91.81 History of falling
CPT/HCPCS: 36415; 73502; 80048; 83735

== ENCOUNTER 2023-06-08 12:09 | Outpatient (AMB) | payer MEDICARE, MEDICAID, SELFPAY ==
[2023-06-08 12:20] VITALS: BP 122/60; PULSE 71; O2SAT 96; BMI 25.7
--- NOTE | 2023-06-08 12:20 | HO.NEPHOV_ITS ---
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 Work up has included UA showing no infection, CT head and cervical spine unremarkable. BMP show sodium of 123 . she had no diarrhea, no fever or chils, no chest pain, no sob, no dizziness. She was thought to have acute metabolic encephalopathy due to hyponatremia. she was treated with fluids and Sodium prerna quickly from 123 to 136 in 6 hours and therefore was given D5W, DDAVP with fair response. She was started on water restriction for 1.5L with fair response as sodium corrected back to 132 on the day of discharge with resolving encephalopathy . She was seen by psychiatry for possible change in SSRI but will likely be followed as outpatient to complete work up. She was not following any fluid restriction. Her mental status remain at baseline. She does not have any weakness or falls. 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 [facility] Medical History (Updated 06/08/23 @ 12:26 by Jeffery Perez MD) Disc degeneration, lumbar Dermatophytosis Dermatitis Joint pain Depression with anxiety Schizoaffective disorder PTSD (post-traumatic stress disorder) Dementia Smoking CAD (coronary artery disease) Type 2 diabetes mellitus with chronic kidney disease Chronic kidney disease, stage 3 unspecified Type 2 diabetes mellitus with diabetic polyneuropathy Essential hypertension Dyslipidemia Diabetes mellitus with hyperglycemia Surgical History Hx of colonoscopy Hx of cataract surgery Hx of tubal ligation Hx of section Family History Father No problems noted. Mother No problems noted. Social History Household Members: None Household Members Other:: has [employer] Services Housing: Apartment Do you presently have visiting nurse or other home services: Yes Alcohol intake: former Patient Tobacco Use Status: Current everyday Tobacco user Tobacco use type: Cigarette Cigarette Packs Per Day: 1 Cigarettes Per Day: 4 Second Hand Smoke Exposure: No Advance Directives Date on File: 09/30/20 service: No Sexual orientation: Straight/Heterosexual Vital Signs 06/08/23 12:20 Height 5 ft 1 in Weight 136 lb BMI 25.7 BP 122/60 Blood Pressure Location Rt brachial Position Sitting Pulse 71 Pulse Source Pulse Oximeter Pulse Oximetry (%) 96 Oxygen Delivery Method Room Air Physical Exam Const General: comfortable and no acute distress Orientation/consciousness: patient oriented x3 HEENT Head: Yes normocephalic Mouth: Normal oral and palatal mucosa present Eyes EOM: EOMs intact bilaterally Neck Neck: Yes supple Resp Auscultation: clear to auscultation bilaterally Cardio Jugular venous distension: no JVD Rate: regular rate GI Palpation (GI): Soft to palpation Auscultation: normal bowel sounds General: Yes no CVA tenderness Back/Spine/Pelvis Back: no CVA tenderness Skin General skin exam: no rashes or lesions noted Neuro General: patient oriented x3 and moves all extremities Extrem General: Yes no pedal edema Assessment & Plan Assessment & Plan (1) Hyponatremia: Code(s): E87.1 - Hypo-osmolality and hyponatremia (2) Hypertension: Code(s): I10 - Essential (primary) hypertension Qualifiers: Hypertension type: primary hypertension Qualified Code(s): I10 - Essential (primary) hypertension Plan Hyponatremia likely multifactorial BS needs to be better controlled consistently Has excess ADH at baseline Euvolemic. Serum Na improved to baseline Was given NaCl tablets for one day during hospitalization Cortisol/TSH - OK Immunofixation normal Mentation is at baseline now Renal function/Liver function normal No signs of CHF; C/W rest of current management Encouraged to fluid restriction; repeat lab work ordered If her sodium drops and can not keep up with fluid restriction-- -- may need to add oral urea or demeclocycline Further management is pending evolving data Orders: Orders Creatinine Today E87.1 - Hypo-osmolality and hyponatremia, I10 - Essential (primary) hypertension Blood Urea Nitrogen Today E87.1 - Hypo-osmolality and hyponatremia, I10 - Essential (primary) hypertension Electrolytes Today E87.1 - Hypo-osmolality and hyponatremia, I10 - Essential (primary) hypertension Calcium Today E87.1 - Hypo-osmolality and hyponatremia, I10 - Essential (primary) hypertension Coding Level of Care Code Est Pt Level 4 (80257) Diagnoses Hyponatremia E87.1 Primary hypertension I10 Hypertension type: primary hypertension Results Reviewed Nephrology Results: Hgb 12.3 g/dl (12.0-16.0) 06/01/23 WBC 11.3 X10*3/uL (4.8-10.8) H 06/01/23 Plt Count 226 X10*3/uL (160-400) 06/01/23 Sodium 133 mmol/L (135-145) L 06/03/23 Potassium 3.9 mmol/L (3.3-5.1) 06/03/23 Chloride 99 mmol/L (96-108) 06/03/23 Carbon Dioxide 28 mmol/L (22-29) 06/03/23 BUN 9 mg/dL (9-16) 06/03/23 Creatinine 0.68 mg/dL (0.5-1.4) 06/03/23 Calcium 10.1 mg/dL (8.4-10.2) 06/03/23 Urine Protein 30 (1+) mg/dL (Neg-Trace) H 05/16/23 Urine Creatinine 55.18 mg/dL 04/01/23
== END 2023-06-08 12:47 | disposition home or self-care (01) ==
PROVIDERS: PCP Internal Medicine; Visit Provider Internal Medicine Nephrology
DX: E87.1 Hypo-osmolality and hyponatremia (principal); I10 Essential (primary) hypertension
CPT/HCPCS: 99214

== ENCOUNTER → 2023-06-08 12:09 | Outpatient (BNVA) | payer MEDICARE, MEDICAID, SELFPAY | PROVIDERS: PCP Internal Medicine; Visit Provider Internal Medicine Nephrology | DX: E87.1 Hypo-osmolality and hyponatremia (principal); I10 Essential (primary) hypertension | CPT/HCPCS: 99212 ==

== ENCOUNTER 2023-07-22 10:42 | Outpatient (REF) | payer MEDICARE, MEDICAID, SELFPAY ==
[2023-07-22 11:39] LABS: Anion Gap 11 (12-20); Blood Urea Nitrogen 13 mg/dL (9-16); Calcium 9.9 mg/dL (8.4-10.2); Carbon Dioxide 28 mmol/L (22-29); Chloride 98 mmol/L (96-108); Estimated Glomerular Filt Rate > 60; Potassium 4.4 mmol/L (3.3-5.1); Sodium 133 mmol/L (135-145)
[2023-07-22 11:44] LABS: Anion Gap 12 (12-20); Blood Urea Nitrogen 13 mg/dL (9-16); Calcium 9.9 mg/dL (8.4-10.2); Carbon Dioxide 27 mmol/L (22-29); Chloride 98 mmol/L (96-108); Estimated Glomerular Filt Rate > 60; Glucose Random 238 mg/dL (60-115); Magnesium 1.4 mg/dL (1.6-2.6); Potassium 4.3 mmol/L (3.3-5.1); Sodium 133 mmol/L (135-145)
[2023-07-24 20:13] LABS: TS Negative Control Passed; TS Panel A 216; TS Panel B 497; TS Positive Control Passed; TSpotTB Positive (Negative)
== END 2023-07-22 10:43 | disposition home or self-care (01) ==
LOC: HO.HHCL 10:42
PROVIDERS: Absent Provider Internal Medicine Nephrology; PCP Internal Medicine; Visit Provider Internal Medicine
DX: Z11.1 Encounter for screening for respiratory tuberculosis (principal); E83.42 Hypomagnesemia; E87.1 Hypo-osmolality and hyponatremia; I10 Essential (primary) hypertension
CPT/HCPCS: 36415; 80048; 80051; 82310; 82565; 83735; 84520; 86481

== ENCOUNTER 2023-08-05 09:44 | Emergency (ER) | payer OTHER, SELFPAY ==
[2023-08-05] VITALS (7 sets, daily range): BP systolic 125–173; BP diastolic 47–90; PULSE 64–76; RESP 12–18; TEMP 36.1–37; O2SAT 92–99; BMI 22.4
--- NOTE | ~2023-08-05 | XR_ITS ---
EXAMINATION: Pelvis and right femur x-ray CLINICAL INFORMATION: Pain. Fall. COMPARISON: None. TECHNIQUE: 1 view of the pelvis. 2 views of the right femur. FINDINGS: Pelvis: Bone alignment is normal. No fracture or dislocation. Normal joint spaces. Atherosclerotic disease. Right femur: Bone alignment is normal. No fracture or dislocation. Normal joint spaces. Normal soft tissues. XR/XR pelvis 1-2V IMPRESSION: Unremarkable examination.
--- NOTE | ~2023-08-05 | XR_ITS ---
EXAMINATION: Right foot and ankle x-ray CLINICAL INFORMATION: Fibular fracture. Rule out foot or ankle fracture. COMPARISON: Lower leg x-ray from earlier the same day TECHNIQUE: 3 views of the right foot. 3 views of the right ankle. FINDINGS: Right foot: Bone alignment is normal. No fracture or dislocation. Mild degenerative changes at the IP joint and MTP joints of the first toe. Joint spaces otherwise normal. Small plantar calcaneal spur. Soft tissues are normal. Right ankle: Bone alignment is normal. No fracture or dislocation. Normal ankle mortise. Normal soft tissues. XR/XR foot RT min 3V IMPRESSION: No fracture or dislocation seen.
--- NOTE | ~2023-08-05 | XR_ITS ---
EXAMINATION: XR CHEST CLINICAL INFORMATION: Dizziness. Anterior chest wall pain. Fall. COMPARISON: Previous chest x-ray April 2023 TECHNIQUE: Frontal view of the chest was obtained. FINDINGS: Cardiac and mediastinal contours are stable. Lungs are clear. No pleural effusion or pneumothorax. No acute rib fracture. Question of old trauma to the left posterior sixth rib. XR/XR chest 1V IMPRESSION: No evidence for acute disease in the chest.
--- NOTE | ~2023-08-05 | XR_ITS ---
EXAMINATION: Right foot and ankle x-ray CLINICAL INFORMATION: Fibular fracture. Rule out foot or ankle fracture. COMPARISON: Lower leg x-ray from earlier the same day TECHNIQUE: 3 views of the right foot. 3 views of the right ankle. FINDINGS: Right foot: Bone alignment is normal. No fracture or dislocation. Mild degenerative changes at the IP joint and MTP joints of the first toe. Joint spaces otherwise normal. Small plantar calcaneal spur. Soft tissues are normal. Right ankle: Bone alignment is normal. No fracture or dislocation. Normal ankle mortise. Normal soft tissues. XR/XR ankle RT min 3V IMPRESSION: No fracture or dislocation seen.
--- NOTE | ~2023-08-05 | CT_ITS ---
EXAMINATION: CT HEAD WITHOUT CONTRAST CLINICAL INFORMATION: Head trauma COMPARISON: Previous head CT most recent May 2023 TECHNIQUE: Contiguous axial imaging was performed from the skull base to vertex without intravenous administration of contrast. This CT examination was performed using dose optimization techniques as appropriate, variously including the following: *Automated exposure control *Adjustment of mA and/or kV according to patient size (this includes techniques or standardized protocols for targeted exams where dose is matched to indication/reason for exam; i.e. extremities or head) *Use of iterative reconstruction technique DLP: 573 mGy-cm FINDINGS: There is no evidence for an extra-axial collection. There is no evidence for intra-or extra-axial hemorrhage. The ventricles and extra-axial CSF spaces are appropriate. Aponte-white matter differentiation is normal. No mass, mass effect or infarct is seen. Review of bone windows is normal. No skull fracture. Inflammatory changes in the sphenoid sinus similar to previous exam. Sinuses mastoid air cells and middle ears are otherwise clear. CT/CT head/brain wo IV con IMPRESSION: No acute intracranial findings. Mild sphenoid sinus disease.
--- NOTE | ~2023-08-05 | XR_ITS ---
EXAMINATION: XR KNEE, RIGHT CLINICAL INFORMATION: Pain post fall COMPARISON: None available. TECHNIQUE: Two views of the right knee. FINDINGS: There is a comminuted fracture of the right proximal fibular shaft. No other fracture seen. Normal joint spaces. No joint effusion. XR/XR knee RT 2V IMPRESSION: Fracture of the proximal fibular shaft.
--- NOTE | ~2023-08-05 | XR_ITS ---
EXAMINATION: XR TIBIA AND FIBULA, RIGHT CLINICAL INFORMATION: Pain. Fall. COMPARISON: None available. TECHNIQUE: AP and lateral views of the right tibia and fibula were obtained. FINDINGS: There is a comminuted nondisplaced fracture of the proximal fibular shaft. No other fracture seen. There is question of soft tissue swelling over the medial ankle. Follow-up ankle x-ray recommended. XR/XR tibia fibula RT 2V IMPRESSION: Comminuted nondisplaced fracture of the proximal fibular shaft. Question soft tissue swelling over the medial ankle. Follow-up ankle x-ray recommended.
--- NOTE | ~2023-08-05 | XR_ITS ---
EXAMINATION: Pelvis and right femur x-ray CLINICAL INFORMATION: Pain. Fall. COMPARISON: None. TECHNIQUE: 1 view of the pelvis. 2 views of the right femur. FINDINGS: Pelvis: Bone alignment is normal. No fracture or dislocation. Normal joint spaces. Atherosclerotic disease. Right femur: Bone alignment is normal. No fracture or dislocation. Normal joint spaces. Normal soft tissues. XR/XR femur RT 2V IMPRESSION: Unremarkable examination.
--- NOTE | ~2023-08-05 | CT_ITS ---
EXAMINATION: CT CERVICAL SPINE WITHOUT CONTRAST CLINICAL INFORMATION: Fall. Head and neck trauma. COMPARISON: Previous cervical spine CT April 2023 TECHNIQUE: Axial images through the cervical spine without IV contrast. Sagittal and coronal reconstructions obtained on the technologist workstation. This CT examination was performed using dose optimization techniques as appropriate, variously including the following: *Automated exposure control *Adjustment of mA and/or kV according to patient size (this includes techniques or standardized protocols for targeted exams where dose is matched to indication/reason for exam; i.e. extremities or head) *Use of iterative reconstruction technique DLP: 601 mGy-cm FINDINGS: Limited exam due to motion. The head is tilted to the left. No fracture or dislocation seen. Degenerative spondylosis and degenerative disc disease at C5-C6 and C6-C7. Mild degenerative spondylosis at C4-C5. Prevertebral soft tissues are normal. Bilateral carotid calcification. CT/CT cervical spine wo IV con IMPRESSION: Limited exam due to motion artifact. Degenerative changes. No fracture or dislocation seen. Repeat exam should be considered if there is strong clinical suspicion of fracture. Fleischner guidelines were followed.
--- NOTE | 2023-08-05 10:13 | ECG_ITS ---
Test Reason : DIZZINESS Blood Pressure : / mmHG Vent. Rate : 062 BPM Atrial Rate : 062 BPM P-R Int : 174 ms QRS Dur : 134 ms QT Int : 416 ms P-R-T Axes : 020 -45 043 degrees QTc Int : 422 ms Normal sinus rhythm Right bundle branch block Left anterior fascicular block Bifascicular block Minimal voltage criteria for LVH, may be normal variant ( R in aVL ) Abnormal ECG When compared with ECG of 16-MAY-2023 11:12, No significant change was found Referred By: Starr Calle Electronically Signed By:AISHWARYA MARTE MD
[2023-08-05 10:41] LABS: MANUAL DIFF FLAG NO
[2023-08-05 10:47] LABS: Basophils Absolute Auto 0.1 X10*3/uL (0.0-0.2); Basophils Percent Auto 0.6 % (0-2); Eosinophils Absolute Auto 0.1 X10*3/uL (0.0-0.4); Eosinophils Percent Auto 1.4 % (0-4); Hematocrit 35.4 % (37.0-47.0); Hemoglobin 11.8 g/dl (12.0-16.0); Imm Gran Abs Auto 0.04 X10*3/uL (0.00-0.03); Imm Gran Pct Auto 0.4 % (0.0-0.4); Lymphocytes Absolute Auto 3.2 X10*3/uL (1.2-4.9); Lymphocytes Percent Auto 33.2 % (20-40); Mean Corpuscular HGB Conc 33.3 g/dl (31.0-35.0); Mean Corpuscular Hemoglobin 27.5 pg (27.0-33.0); Mean Corpuscular Volume 82.5 fL (80.0-98.0); Mean Platelet Volume 11.4 fL (9.4-12.3); Monocytes Absolute Auto 0.8 X10*3/uL (0.1-1.2); Monocytes Percent Auto 7.7 % (2-11); Neutrophils Absolute Auto 5.5 x10*3/uL (2.0-8.3); Neutrophils Percent Auto 56.7 % (45-73); Platelet Count 190 X10*3/uL (160-400); Red Blood Count 4.29 X10*6/uL (4.20-5.50); Red Cell Distribution Width 13.2 % (11.0-16.0); White Blood Count 9.7 X10*3/uL (4.8-10.8)
--- NOTE | 2023-08-05 10:50 | ED_ITS ---
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 Patient reports becoming dizzy immediately upon standing up from a chair. Reports falling to the ground and striking her head on the radio box in her living room. The fall was witnessed by her ASSOCIATE DIRECTOR who called EMS for transport to ED. She presents in cervical collar. At present, patient complains of generalized head pain, neck pain, anterior chest wall pain, and right lower extremity pain. She is unable to localize the pain in her right lower extremity however when I palpate her right knee/ proximal tib/fib she winces. Patient ambulates with walker at baseline. Patient vague in responses and overall poor historian secondary to her underlying dementia. Denies vision changes, N/V, back pain, saddle anesthesia, bowel or bladder incontinence or retention, numbness/tingling/weakness of the lower extremities. sequencing machine operator utilized throughout visit to communicate with patient. Related Data Home Medications ?Medication ?Instructions ?Recorded ?Confirmed metoprolol tartrate 25 mg tablet 1 tab PO BID 11/07/21 08/05/23 pantoprazole 40 mg tablet,delayed 40 mg PO DAILY 05/19/22 08/05/23 release aripiprazole 20 mg tablet 20 mg PO BEDTIME 09/07/22 08/05/23 buspirone 10 mg tablet 10 mg PO TID 09/07/22 08/05/23 atorvastatin 80 mg tablet 80 mg PO DAILY 05/16/23 08/05/23 gabapentin 100 mg capsule 200 mg PO BID 05/16/23 08/05/23 lamotrigine 200 mg tablet 200 mg PO DAILY 05/16/23 08/05/23 acetaminophen 650 mg 650 mg PO Q8H PRN mild pain 08/05/23 08/05/23 tablet,extended release dulaglutide 0.75 mg/0.5 mL 0.75 mg subcut QWEEK 08/05/23 08/05/23 subcutaneous pen injector (Trulicity) insulin aspart U-100 100 unit/mL subcut 08/05/23 (3 mL) subcutaneous pen (Novolog FlexPen U-100 Insulin aspart) Previous Rx's ?Medication ?Instructions ?Recorded lancets 28 gauge (FreeStyle #100 ea 10/09/20 Lancets) metformin 500 mg tablet 500 mg PO BID #60 tabs 01/05/22 pen needle, diabetic 32 gauge x #100 ea 01/05/22 (Unifine Pentips) docusate sodium 100 mg capsule 200 mg (2 x 100 mg) PO BEDTIME 05/19/22 #180 caps flash glucose scanning reader #1 ea 06/16/22 (FreeStyle Ni 2 [place]) lisinopril 10 mg tablet 10 mg PO DAILY #30 tabs 12/10/22 flash glucose sensor (FreeStyle #2 kits 07/21/23 Ni 2 Sensor kit) blood sugar diagnostic (FreeStyle #100 ea 08/04/23 Lite Strips) blood-glucose meter (FreeStyle #1 ea 08/04/23 Lite Meter kit) Allergies Allergy/AdvReac Type Severity Reaction Status Date / Time duloxetine [Cymbalta] Allergy Unknown Unknown Verified 08/05/23 10:27 hydroxyzine Allergy Unknown unknown Verified 08/05/23 10:27 risperidone Allergy Unknown Unknown Verified 08/05/23 10:27 trazodone Allergy Unknown Unknown Verified 08/05/23 10:27 quetiapine [From SEROQUEL] AdvReac Severe Acute Verified 08/05/23 10:27 Dystonic reaction Review of Systems 2 Review of Systems: Constitutional: No fever, chills, fatigue, night sweats, weight changes ENT/Mouth: No ear pain, hearing loss, nasal congestion, sinus pain, rhinorrhea, sore throat Eyes: No eye pain, swelling, redness, vision changes, discharge Cardio: No chest pain, palpitations, WALSH, orthopnea, peripheral edema Pulm: No SOB, cough, sputum, wheezing, dyspnea, hemoptysis GI: No nausea, vomiting, hematemesis, abdominal pain, diarrhea, constipation, hematochezia, melena : No irregular bleeding, dysuria, frequency, urgency, hesitancy, hematuria, flank pain, urinary flow changes, urinary incontinence or retention MSK: No back pain, neck pain, joint pain, myalgias, +neck pain, +RLE pain Skin: No lesions, rashes Neuro: No weakness, numbness, paresthesias, LOC, dizziness, +headache Psych: No anxiety/panic, depression, SI/HI, AH/VH All other systems reviewed and are negative. [facility] Past Medical History Attestation statement: The following information was validated with the patient. Source: old records reviewed and nursing notes reviewed Medical History Disc degeneration, lumbar Dermatophytosis Dermatitis Joint pain Depression with anxiety Schizoaffective disorder PTSD (post-traumatic stress disorder) Dementia Smoking CAD (coronary artery disease) Type 2 diabetes mellitus with chronic kidney disease Chronic kidney disease, stage 3 unspecified Type 2 diabetes mellitus with diabetic polyneuropathy Essential hypertension Dyslipidemia Diabetes mellitus with hyperglycemia Surgical History Hx of colonoscopy Hx of cataract surgery Hx of tubal ligation Hx of section Family History Family History Father No problems noted. Mother No problems noted. Social History Social History Household Members: None Household Members Other:: has CHD Services Housing: Apartment Do you presently have visiting nurse or other home services: Yes Unable to assess alcohol history related to: Unknown Alcohol intake: former Patient Tobacco Use Status: Current everyday Tobacco user Tobacco use type: Cigarette Cigarette Packs Per Day: 1 Cigarettes Per Day: 4 Smoked in Last 30 Days: No Second Hand Smoke Exposure: No Use of substances other than those prescribed or required for medical reasons: No Advance Directives: No Advance Directives Information Provided: Yes Advance Directives Date on File: 09/30/20 Do you have a plan to hurt others: No Plan service: No Sexual orientation: Straight/Heterosexual Physical Exam 2 Vital Signs: Vital Signs: Last Vital Signs Temp 97.5 F 08/07/23 06:26 Pulse 57 08/07/23 06:26 Resp 20 08/07/23 06:26 BP 113/51 L 08/07/23 06:26 Pulse Ox 94 08/07/23 06:26 O2 Del Method Room Air 08/07/23 06:26 BMI result Body Mass Index 22.4 vital signs stable Const: Other: appears fatigued. responsive to verbal stimuli. General: no acute distress Orientation/consciousness: oriented to person and oriented to place Limitations: no limitations HEENT: Head: Yes normal to inspection, Yes No palpable skull fracture present, Yes normocephalic and Yes atraumatic Eyes: General: appearance normal, both eyes and all related structures C onjunctivae: conjunctivae normal Sclerae: sclerae normal Pupils: Equal, round and reactive pupils present Neck: Other: + c collar in place. Once removed, no c ervical midline spinous tenderness or step-off deformity. Full ROM intact. Neck: Yes normal visual inspection, Yes full ROM, Yes no lymphadenopathy and Yes no meningeal signs Chest: Other: + ttp of anterior chest wall without pal pable deformity Chest palpation & inspection: normal inspection of the chest and no crepitus Resp: Effort & Inspection: normal respiratory effort and able to speak in complete sentences Auscultation: clear to auscultation bilaterally Cardio: Rate: regular rate Rhythm: regular rhythm GI: Inspection: Yes normal to inspection and No abdominal wall ecchymosis P alpation (GI): Soft to palpation and nontender Back/Spine/Pelvis: Other: No midline spinous tenderness or step off deformity. No paraspinal muscle tenderness. Back: No Aponte-Mills sign present Skin: General skin exam: no rashes or lesions noted Neuro: General: oriented to person, oriented to place, tone normal, no meningeal signs and no focal motor deficits Cranial nerves: Yes Equal, round and reactive pupils present Extrem: General: Yes normal to inspection Course Course Course Narrative: 1457-- CBC without leukocytosis or left shift. H&H stable at 11.8/35.4. Patient hyponatremic and hypochloremic likely secondary to stage 3 chronic kidney disease. She did receive 2 L of fluids. Will repeat labs. Random glucose 147. Total CK 262. No concern for acute rhabdo. UA without infection or blood. 1617-- head CT does not demonstrate acute skull fracture or bleed. There is mild sphenoid sinus disease. CT cervical spine with limited exam due to motion artifact. There are degenerative changes noted without visible fracture or dislocation seen. They are recommending repeat exam if they are strong clinical suspicion for fracture. I did re-evaluate patient once C-collar was removed. She does not have any midline spinous tenderness or step-off deformity. She is noted to have full ROM intact to C-spine. Not complaining of any neck pain at this time. I have low suspicion for fracture. Chest x-ray without evidence of pneumonia. Pelvis x-ray without fracture. Femur x-ray unremarkable. X-ray of tib/fib showing comminuted nondisplaced fracture of the fibular shaft. X-rays of right ankle/foot unremarkable. > I did discuss this finding with orthopedic PACeleste who recommends patient be placed in tall boot. > Discussed all work up results with both patient and her son. Her son does report concern about patient being able to care for herself at home. She has a history of dementia and lives alone. She has a ASSOCIATE DIRECTOR who comes to the house for about 1 hour/day. She does ambulate with walker however this will be difficult with her placed in a tall boot. I discussed PT/case management evaluation and patient and son are agreeable with this. 1645-- troponin flat. repeat BMP showing normalized sodium at 136 and normalized chloride at 104. There are no other acute electrolyte abnormalities requiring intervention. I do have concern that patient became dizzy on standing this morning due to orthostatic hypotension however due to fibula fracture I have not been able to stand patient due to her lower leg pain. She did recieved 2L IVF and has not had further episodes of dizziness in ED. > patient placed in physician observation at 1645 pending PT/case management consult. 08/07/23 07:45 Physician observation continued, no overnight events reported by nursing. Awaiting PT/M eval. Vitals stable. Reevaluation(s) Reevaluation #1: August 05, 2023, 10:15 p.m. notified by nursing that the patient had just come over to overflow. Patient requesting pain medication. A scheduled oxycodone, Colace to prevent any constipation. Diabetic diet also ordered. She remains hemodynamically stable. Nursing will attempt to reconcile medications, especially insulin. 10:50 P.M. med reconciled. Unable to confirm insulin dosing. Glucose was 87 earlier. We will continue to monitor. She will receive her metformin. Reevaluation #2: 08/06/2023 1648 - physician observation continued. No overnight events per nursing staff. We will continue to monitor pending case management dispo planning. Medications Administered Generic Name Dose Route Start Last Admin Trade Name Freq PRN Reason Stop Dose Admin Acetaminophen 650 mg 08/06/23 06:12 08/06/23 21:13 Acetaminophen 325 Mg Tablet PO 650 mg Q8H PRN Administration mild pain Aripiprazole 20 mg 08/05/23 23:00 08/06/23 21:10 Aripiprazole 20 Mg Tablet PO 20 mg BEDTIME DELMER Administration Atorvastatin Calcium 80 mg 08/06/23 09:00 08/06/23 09:21 Atorvastatin Calcium 80 Mg Tablet PO 80 mg DAILY DELMER Administration Buspirone HCl 10 mg 08/05/23 23:00 08/06/23 21:10 Buspirone Hcl 10 Mg Tablet PO 10 mg TID DELMER Administration Docusate Sodium 100 mg 08/05/23 22:15 08/06/23 21:10 Docusate Sodium 100 Mg Capsule PO 100 mg BID DELMER Administration Docusate Sodium 200 mg 08/05/23 23:00 08/06/23 21:16 Docusate Sodium 100 Mg Capsule PO 200 mg BEDTIME DELMER Administration Gabapentin 200 mg 08/05/23 23:00 08/06/23 21:10 Gabapentin 100 Mg Capsule PO 200 mg BID DELMER Administration Lamotrigine 200 mg 08/06/23 09:00 08/06/23 11:25 Lamotrigine 100 Mg Tablet PO 200 mg DAILY DELMER Administration Lisinopril 10 mg 08/06/23 09:00 08/06/23 09:21 Lisinopril 10 Mg Tablet PO 10 mg DAILY DELMER Administration Protocol Metformin HCl 500 mg 08/05/23 23:00 08/06/23 21:10 Metformin Hcl 500 Mg Tablet PO 500 mg BID DELMER Administration Metoprolol Tartrate 25 mg 08/05/23 23:00 08/06/23 21:06 Metoprolol Tartrate 25 Mg Tablet PO 25 mg BID DELMER Administration Protocol Omeprazole 20 mg 08/06/23 09:00 08/06/23 09:21 Omeprazole 20 Mg Capsule.Dr PO 20 mg DAILY DELMER Administration Oxycodone HCl 5 mg 08/05/23 22:14 08/06/23 21:13 Oxycodone Hcl Immed Release 5 Mg Tablet PO 5 mg Q6H PRN Administration Pain, Severe (Pain Scale 7-10) Discontinued Medications Generic Name Dose Route Start Last Admin Trade Name Arpan PRN Reason Stop Dose Admin Acetaminophen 975 mg 08/05/23 13:53 08/05/23 15:11 Acetaminophen 325 Mg Tablet PO 08/05/23 13:54 Not Given ONCE ONE Sodium Chloride 1,000 mls @ 999 mls/hr 08/05/23 11:15 08/05/23 14:07 Ns IV 08/05/23 12:15 Infused .Q1H1M DELMER Infusion Sodium Chloride 1,000 mls @ 999 mls/hr 08/05/23 11:15 08/05/23 14:07 Ns IV 08/05/23 12:15 Infused .Q1H1M DELMER Infusion Medical Decision Making Medical Decision Making [facility] Narrative: 68 year old [place] speaking female with phx significant for dementia, diabetes, CKD, CAD, schizoaffective disorder, PTSD, and HTN presents to the ED today via EMS for evaluation of 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 patient hypertensive, vitals otherwise WNL. She is nontoxic appearing in no acute distress. Lying comfortably on the exam bed. AOX2. No palpable skull fracture. PERRLA. EOMs intact w/o entrapment. Initially, cervical collar placed. On removal, there is no midline cervical spinous tenderness or step-off deformity. She has full ROM intact of C-spine. Unable to assess ambulation secondary to lower leg pain. Sensation intact to light touch throughout. 2+ DP/PT pulses b/l. TTP over the right anterior lower leg with minimal swelling. No palpable deformity, crepitus or fluctuance. FROM intact to right knee. Differential diagnosis includes fracture, contusion, concussion, subluxation, ACS, arrhythmia, orthostatic hypotension Plan for labs, xrays, CT, UA, ortho vitals, ekg, trop, re-evaluation. Differential Diagnosis Differential Diagnoses: The differential diagnosis associated with the presentation includes as above Admission/Observation Consideration of admission/observation: Escalation of care including admission/observation considered Admission considered on presentation Lab Data [facility] Lab Attestation statement: I reviewed the patient's lab results. as above 08/05/23 10:35 08/05/23 16:18 Labs: Lab Results 08/05/23 08/05/23 08/05/23 Range/Units 10:35 12:26 16:18 WBC 9.7 (4.8-10.8) X10*3/uL RBC 4.29 (4.20-5.50) X10*6/uL Hgb 11.8 L (12.0-16.0) g/dl Hct 35.4 L (37.0-47.0) % MCV 82.5 (80.0-98.0) fL MCH 27.5 (27.0-33.0) pg MCHC 33.3 (31.0-35.0) g/dl RDW 13.2 (11.0-16.0) % Plt Count 190 (160-400) X10*3/uL MPV 11.4 (9.4-12.3) fL Immature Gran % (Auto) 0.4 (0.0-0.4) % Neut % (Auto) 56.7 (45-73) % Lymph % (Auto) 33.2 (20-40) % [place] % (Auto) 7.7 (2-11) % Eos % (Auto) 1.4 (0-4) % Baso % (Auto) 0.6 (0-2) % Lymph # (Auto) 3.2 (1.2-4.9) X10*3/uL [place] # (Auto) 0.8 (0.1-1.2) X10*3/uL Eos # (Auto) 0.1 (0.0-0.4) X10*3/uL Baso # (Auto) 0.1 (0.0-0.2) X10*3/uL Abs Immat Gran (auto) 0.04 H (0.00-0.03) X10*3/uL Absolute Neuts (auto) 5.5 (2.0-8.3) x10*3/uL Absolute Nucleated RBC 0.000 (0.0-0.012) X10*3/uL Nucleated RBC % (auto) 0.0 (0.0-0.2) /100WBC Sodium 127 L 136 (135-145) mmol/L Potassium 4.5 4.3 (3.3-5.1) mmol/L Chloride 95 L 104 (96-108) mmol/L Carbon Dioxide 25 27 (22-29) mmol/L Anion Gap 12 9 L (12-20) BUN 10 9 (9-16) mg/dL Creatinine 0.73 0.71 (0.5-1.4) mg/dL Estim Creat Clear Calc 70.0 71.9 Estimated GFR > 60 > 60 Random Glucose 147 H 87 (60-115) mg/dL Calcium 9.6 9.8 (8.4-10.2) mg/dL Magnesium 1.6 (1.6-2.6) mg/dL Total Bilirubin 0.3 (0.0-1.0) mg/dL AST 21 (5-31) U/L ALT 18 (0-31) U/L Alkaline Phosphatase 91 (39-117) U/L Total Creatine Kinase 262 H (26-140) U/L Troponin I High Sens 3.3 3.5 (<3.5-17.0) ng/L Total Protein 7.3 (6.5-8.0) g/dL Albumin 4.2 (3.5-5.0) g/dL Lipase 37 (8-78) U/L Urine Color Yellow Urine Appearance Clear Urine pH 6.5 (5.0-9.0) Ur Specific [place] <= 1.005 (1.005-1.025) Urine Protein Negative (Neg-Trace) mg/dL Urine Glucose (UA) Negative (Negative) mg/dL Urine Ketones Negative (Negative) mg/dL Urine Blood Negative (Negative) Urine Nitrite Negative (Negative) Ur Leukocyte Esterase Negative (Negative) Urine Opiates Screen Not Detected (Not Detect) Ur Buprenorphine Scrn Not Detected (Not Detect) ng/mL Ur Oxycodone Screen Not Detected (Not Detect) ng/mL Urine Methadone Screen Not Detected (Not Detect) ng/mL Urine Fentanyl Screen Not Detected (Not Detect) Ur Barbiturates Screen Not Detected (Not Detect) Ur Phencyclidine Scrn Not Detected (Not Detect) Ur Amphetamines Screen Not Detected (Not Detect) U Benzodiazepines Scrn Not Detected (Not Detect) Urine Cocaine Screen Not Detected (Not Detect) U Marijuana (THC) Screen Not Detected (Not Detect) Influenza Type A (PCR) NEGATIVE (Negative) Influenza Type B (PCR) NEGATIVE (Negative) RSV RNA Qual (PCR) NEGATIVE (Negative) SARS-CoV-2 RNA (RT-PCR) NEGATIVE (Negative) Independent Interpretation I performed an independent interpretation of an: Plain X-Ray and CT Scan Interpretation: EKG showing normal sinus rhythm with a rate of 62 beats per minute, there is right bundle-branch block and left anterior fascicular block which was present on previous EKGs. No acute ischemic changes or ST elevations. CT head/ brain without acute bleed or skull fracture. CT cervical spine without acute fracture, agree with radiologist's interpretation. CXR without consolidation or infiltrate, agree with radiologist's interpretation. XR right pelvis without fracture, agree with radiologist's interpretation XR right femur without fracture, agree with radiologist's interpretation XR right knee showing proximal fibular fracture, agree with radiologist's interpretation. XR right tib/fib showing proximal fibular fracture, agree with radiologist's interpretation. XR right ankle/ foot without fracture, agree with radiologist's interpretation Radiology Impression Discussion of test interpretation with radiology: I have reviewed the radiologist's reading. Radiologist Impression: EXAMINATION: CT HEAD WITHOUT CONTRAST CLINICAL INFORMATION: Head trauma COMPARISON: Previous head CT most recent May 2023 TECHNIQUE: Contiguous axial imaging was performed from the skull base to vertex without intravenous administration of contrast. This CT examination was performed using dose optimization techniques as appropriate, variously including the following: *Automated exposure control *Adjustment of mA and/or kV according to patient size (this includes techniques or standardized protocols for targeted exams where dose is matched to indication/reason for exam; i.e. extremities or head) *Use of iterative reconstruction technique DLP: 573 mGy-cm FINDINGS: There is no evidence for an extra-axial collection. There is no evidence for intra-or extra-axial hemorrhage. The ventricles and extra-axial CSF spaces are appropriate. Aponte-white matter differentiation is normal. No mass, mass effect or infarct is seen. Review of bone windows is normal. No skull fracture. Inflammatory changes in the sphenoid sinus similar to previous exam. Sinuses mastoid air cells and middle ears are otherwise clear. CT/CT head/brain wo IV con IMPRESSION: No acute intracranial findings. Mild sphenoid sinus disease. ------- EXAMINATION: CT CERVICAL SPINE WITHOUT CONTRAST CLINICAL INFORMATION: Fall. Head and neck trauma. COMPARISON: Previous cervical spine CT April 2023 TECHNIQUE: Axial images through the cervical spine without IV contrast. Sagittal and coronal reconstructions obtained on the technologist workstation. This CT examination was performed using dose optimization techniques as appropriate, variously including the following: *Automated exposure control *Adjustment of mA and/or kV according to patient size (this includes techniques or standardized protocols for targeted exams where dose is matched to indication/reason for exam; i.e. extremities or head) *Use of iterative reconstruction technique DLP: 601 mGy-cm FINDINGS: Limited exam due to motion. The head is tilted to the left. No fracture or dislocation seen. Degenerative spondylosis and degenerative disc disease at C5-C6 and C6-C7. Mild degenerative spondylosis at C4-C5. Prevertebral soft tissues are normal. Bilateral carotid calcification. EXAMINATION: XR CHEST CLINICAL INFORMATION: Dizziness. Anterior chest wall pain. Fall. COMPARISON: Previous chest x-ray April 2023 TECHNIQUE: Frontal view of the chest was obtained. FINDINGS: Cardiac and mediastinal contours are stable. Lungs are clear. No pleural effusion or pneumothorax. No acute rib fracture. Question of old trauma to the left posterior sixth rib. XR/XR chest 1V IMPRESSION: No evidence for acute disease in the chest. ------- EXAMINATION: Pelvis and right femur x-ray CLINICAL INFORMATION: Pain. Fall. COMPARISON: None. TECHNIQUE: 1 view of the pelvis. 2 views of the right femur. FINDINGS: Pelvis: Bone alignment is normal. No fracture or dislocation. Normal joint spaces. Atherosclerotic disease. Right femur: Bone alignment is normal. No fracture or dislocation. Normal joint spaces. Normal soft tissues. XR/XR pelvis 1-2V IMPRESSION: Unremarkable examination. EXAMINATION: Pelvis and right femur x-ray CLINICAL INFORMATION: Pain. Fall. COMPARISON: None. TECHNIQUE: 1 view of the pelvis. 2 views of the right femur. FINDINGS: Pelvis: Bone alignment is normal. No fracture or dislocation. Normal joint spaces. Atherosclerotic disease. Right femur: Bone alignment is normal. No fracture or dislocation. Normal joint spaces. Normal soft tissues. XR/XR femur RT 2V IMPRESSION: Unremarkable examination. EXAMINATION: XR KNEE, RIGHT CLINICAL INFORMATION: Pain post fall COMPARISON: None available. TECHNIQUE: Two views of the right knee. FINDINGS: There is a comminuted fracture of the right proximal fibular shaft. No other fracture seen. Normal joint spaces. No joint effusion. XR/XR knee RT 2V IMPRESSION: Fracture of the proximal fibular shaft. EXAMINATION: XR TIBIA AND FIBULA, RIGHT CLINICAL INFORMATION: Pain. Fall. COMPARISON: None available. TECHNIQUE: AP and lateral views of the right tibia and fibula were obtained. FINDINGS: There is a comminuted nondisplaced fracture of the proximal fibular shaft. No other fracture seen. There is question of soft tissue swelling over the medial ankle. Follow-up ankle x-ray recommended. XR/XR tibia fibula RT 2V IMPRESSION: Comminuted nondisplaced fracture of the proximal fibular shaft. Question soft tissue swelling over the medial ankle. Follow-up ankle x-ray recommended. EXAMINATION: Right foot and ankle x-ray CLINICAL INFORMATION: Fibular fracture. Rule out foot or ankle fracture. COMPARISON: Lower leg x-ray from earlier the same day TECHNIQUE: 3 views of the right foot. 3 views of the right ankle. FINDINGS: Right foot: Bone alignment is normal. No fracture or dislocation. Mild degenerative changes at the IP joint and MTP joints of the first toe. Joint spaces otherwise normal. Small plantar calcaneal spur. Soft tissues are normal. Right ankle: Bone alignment is normal. No fracture or dislocation. Normal ankle mortise. Normal soft tissues. XR/XR foot RT min 3V IMPRESSION: No fracture or dislocation seen. Independent Historian Clinical information obtained from an independent historian. History obtained from or confirmed by: EMS and Other (son) External Record Review External record reviewed: Inpatient record, Office record, Outpatient record, Prior outpatient labs, Prior outpatient radiology, Primary care record and Outside ED record Prescription Management I considered prescription management with: Pain Medication Chronic Conditions Patient?s care impacted by: Diabetes and Other (dementia) Social Determinants Patient?s care significantly limited by Social Determinants of Health including: Other Social Determinant of Health Critical Care Time Critical Care Time Critical Care Time: No Discharge Plan Discharge Clinical Impression: Fracture of proximal end of right fibula, Hyponatremia, [place] Patient Disposition: Still a Patient Prescriptions: No Action metformin 500 mg tablet 500 mg PO BID Qty: 60 1RF (DME) pen needle, diabetic [Unifine Pentips] 32 gauge x 5/32 needle 1 ea miscellaneous TID Qty: 100 1RF Rx Instructions: 4x daily lisinopril 10 mg tablet 10 mg PO DAILY Qty: 30 3RF (DME) FreeStyle Ni 2 Sensor Kit See Rx Instructions .ROUTE .COMPLEX Qty: 2 5RF Dose Instruction: As directed change every 14 days Rx Instructions: As directed change every 14 days (DME) FreeStyle Lite Strips Strip See Rx Instructions .Route Qty: 100 5RF Rx Instructions: Tests 4X/day (DME) blood-glucose meter [FreeStyle Lite Meter] Kit See Rx Instructions .ROUTE .MEDSUPPLY Qty: 1 0RF Rx Instructions: As directed 2x/day (DME) lancets [FreeStyle Lancets] 28 gauge misc 1 gauge topical TID Qty: 100 11RF metoprolol tartrate 25 mg tablet 1 tab PO BID acetaminophen 650 mg tablet extended release 650 mg PO Q8H PRN (Reason: mild pain) insulin aspart U-100 [Novolog FlexPen U-100 Insulin] 100 unit/mL (3 mL) insulin pen subcut Trulicity 0.75 mg/0.5 mL pen injector 0.75 mg subcut QWEEK atorvastatin 80 mg tablet 80 mg PO DAILY lamotrigine 200 mg tablet 200 mg PO DAILY gabapentin 100 mg capsule 200 mg PO BID (DME) FreeStyle Ni 2 [place] Misc See Rx Instructions .Route Qty: 1 0RF Rx Instructions: As directed pantoprazole 40 mg tablet,delayed release (DR/EC) 40 mg PO DAILY docusate sodium 100 mg capsule 200 mg PO BEDTIME Qty: 180 3RF aripiprazole 20 mg tablet 20 mg PO BEDTIME buspirone 10 mg tablet 10 mg PO TID Print Language: St Helenian
[2023-08-05 11:00] LABS: Alanine Aminotransferase 18 U/L (0-31); Albumin Level 4.2 g/dL (3.5-5.0); Alkaline Phosphatase 91 U/L (39-117); Anion Gap 12 (12-20); Aspartate Amino Transferase 21 U/L (5-31); Bilirubin Total 0.3 mg/dL (0.0-1.0); Blood Urea Nitrogen 10 mg/dL (9-16); Calcium 9.6 mg/dL (8.4-10.2); Carbon Dioxide 25 mmol/L (22-29); Chloride 95 mmol/L (96-108); Estimated Glomerular Filt Rate > 60; Glucose Random 147 mg/dL (60-115); Lipase 37 U/L (8-78); Magnesium 1.6 mg/dL (1.6-2.6); Potassium 4.5 mmol/L (3.3-5.1); Sodium 127 mmol/L (135-145); Total Protein 7.3 g/dL (6.5-8.0)
[2023-08-05 11:04] LABS: Troponin-I High Sensitivity 3.3 ng/L (<3.5-17.0)
[2023-08-05] MEDS: 0.9 % Sodium Chloride 1,000 ML 999 ML IV ×2 (11:20)
[2023-08-05 11:22] LABS: Influenza A PCR NEGATIVE (Negative); Influenza B PCR NEGATIVE (Negative); Resp Syncy Virus RNA Qual PCR NEGATIVE (Negative); SARS COV2 PCR INHOUSE NEGATIVE (Negative)
[2023-08-05 12:35] LABS: Appearance Urine Clear; Color Urine Yellow; Glucose Urine UA Negative (Negative); Leukocyte Esterase Urine Negative (Negative); Nitrite Urine Negative (Negative); PH 6.5 (5.0-9.0); Specific Gravity - Urine <= 1.005 (1.005-1.025); Urine Blood Negative (Negative); Urine Ketones Negative (Negative); Urine Protein Negative (Neg-Trace)
[2023-08-05 12:43] LABS: Amphetamine Screen Urine Not Detected (Not Detect); Barbiturates, Urine Not Detected (Not Detect); Benzodiazepines Screen Urine Not Detected (Not Detect); Buprenorphine Scr Not Detected (Not Detect); Cannabinoid Screen Urine Not Detected (Not Detect); Cocaine Screen Urine Not Detected (Not Detect); Methadone Screen, Urine Not Detected (Not Detect); Opiate Screen Urine Not Detected (Not Detect); Oxycodone Screen Urine Not Detected (Not Detect); Phencyclidine Screen Urine Not Detected (Not Detect)
[2023-08-05 12:44] LABS: Fentanyl, urine Not Detected (Not Detect)
[2023-08-05 16:43] LABS: Anion Gap 9 (12-20); Blood Urea Nitrogen 9 mg/dL (9-16); Calcium 9.8 mg/dL (8.4-10.2); Carbon Dioxide 27 mmol/L (22-29); Chloride 104 mmol/L (96-108); Creatinine Clr Calc Pharmacy 71.9; Estimated Glomerular Filt Rate > 60; Glucose Random 87 mg/dL (60-115); Potassium 4.3 mmol/L (3.3-5.1); Sodium 136 mmol/L (135-145)
[2023-08-05 16:52] LABS: Troponin-I High Sensitivity 3.5 ng/L (<3.5-17.0)
--- NOTE | 2023-08-05 21:07 | MHC.CM.ED ---
CM met with patient at the request of Starr DRAPER. Pt awakened for interview. Mosotho speaking. burial vault maker used. Pt is confused at baseline. Has diagnosis of dementia/PTSD/schizoaffective/dm/ckd/cad and HTN. Pt is unable to answer my questions. Permission given to call her son, Marcos. Marcos speaks estonian. CM called and spoke with Marcos/HCP ([phone]). 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 He says his mother gets daily meals, but he does not know form where. He knows she gets some help from [facility]([phone]) and has a Senior Advocate that has been helpful-[facility] [phone]. PCP is Gilda Maynard. His HCP is on file. CM will task [facility] regarding MOW. Review of medical records shows that pt has had [facility] and [facility] in the past and is Active with [facility] for medication management. ([phone]). CM will referr through [facility] to see if [facility] or [facility] is active with this patient. Pt's insurance is listed as [facility], however Marcos does not know the insurance, but believes it was recently changed. He is aware that patient will have a PT consult in the morning with possible STR. Marcos has no choices, but would like something close. Local referrals that contract with [facility] will be made. CM will follow for discharge planning.
--- NOTE | 2023-08-05 21:44 | PC.NURSE ---
report given to francisco Echeverria RN
--- NOTE | 2023-08-05 22:15 | PC.NURSE ---
[place] [facility] [place]ox[place], helped to commode had large BM. pt reports 10/10 pain in R. leg. Enio DRAPER aware. also aware of need for diet order. awaiting orders, call vee within reach.
[2023-08-05] MEDS: oxyCODONE HCl Immed Release 5 MG TABLET PO (22:39)
--- NOTE | 2023-08-06 | PC.NURSE ---
Addendum entered by Jakci Bloom 08/06/23 04:07: PA aware. Original Note: pt refused meds, states she takes them in the AM. pt educated on meds. resting comfortably in bed, call vee within reach.
--- NOTE | 2023-08-06 04:08 | PC.NURSE ---
pt reports 09/06 R. Leg pain, requested PRN. educated not due until 6 hours from previous admin ([id number]), pt verbalizes she will wait until it can be administered. requested water. resting comfortably. call vee within reach.
[2023-08-06] MEDS: oxyCODONE HCl Immed Release 5 MG TABLET PO ×3 (04:40→21:13)
--- NOTE | 2023-08-06 04:41 | PC.NURSE ---
pt medicated per mar with prn. tolerated po with water.
[2023-08-06 05:04] VITALS: BP 157/66; PULSE 65; RESP 16; TEMP 36.6; O2SAT 95
--- NOTE | 2023-08-06 05:53 | MHC.EDTECH ---
pt up to commode tolerated well.
[2023-08-06 07:09] VITALS: BP 151/73; PULSE 68; RESP 20; TEMP 37.1; O2SAT 99
--- NOTE | 2023-08-06 09:14 | MHC.EDTECH ---
Patient given breakfast tray
[2023-08-06] MEDS: lisinopriL 10 MG TABLET PO (09:21)
[2023-08-06] MEDS: Gabapentin 100 MG CAPSULE 200 MG PO ×2 (09:21→21:10)
[2023-08-06] MEDS: Omeprazole 20 MG CAPSULE.DR PO (09:21)
[2023-08-06] MEDS: metFORMIN HCl 500 MG TABLET PO ×2 (09:21→21:10)
[2023-08-06] MEDS: Docusate Sodium 100 MG CAPSULE PO ×2 (09:21→21:10)
[2023-08-06] MEDS: Atorvastatin Calcium 80 MG TABLET PO (09:21)
[2023-08-06] MEDS: Metoprolol Tartrate 25 MG TABLET PO ×2 (09:21→21:06)
--- NOTE | 2023-08-06 09:32 | MHC.EDTECH ---
Patient given complete bed bath and bed changed
--- NOTE | 2023-08-06 09:59 | MHC.EDTECH ---
Patient up in a chair
[2023-08-06] MEDS: lamoTRIgine 100 MG TABLET 200 MG PO (11:25)
[2023-08-06] MEDS: busPIRone HCl 10 MG TABLET PO ×3 (11:25→21:10)
--- NOTE | 2023-08-06 11:28 | PC.NURSE ---
delay in medications d/t medication not being readily available in overflow pyxis. medication delivered from pharmacy/administered.
--- NOTE | 2023-08-06 14:47 | PC.NURSE ---
upon pt assessment, pt c/o increase in pain in right foot. prn medication utilized. effectiveness pending.
--- NOTE | 2023-08-06 15:08 | PC.NURSE ---
pt alert and oriented x 3 throughout entire shift. pt seemingly confused at times. full bed bath completed by tech. fresh bedding/padding applied. pt out of bed w/ a 1:1 assist to the recliner as well as commode throughout shift. boot in place on right foot. pt uses a walker baseline at home. pt ate 100% breakfast/lunch tray. medicated per provider order throughout shift. pt calm/cooperative pleasant. per CM - at this time, pt is pending PT evaluation until any decisions are made. pt's son bedside notified/aware of plan moving forward. pt calm/cooperative/pleasant.
[2023-08-06 15:28] VITALS: BP 119/57; PULSE 71; RESP 18; TEMP 36.8; O2SAT 96
[2023-08-06 21:06] VITALS: BP 128/59; PULSE 62
[2023-08-06] MEDS: ARIPiprazole 20 MG TABLET PO (21:10)
[2023-08-06 21:11] VITALS: BP 128/59; PULSE 62; RESP 20; TEMP 36.5; O2SAT 97
[2023-08-06] MEDS: Acetaminophen 325 MG TABLET 650 MG PO (21:13)
[2023-08-06] MEDS: Docusate Sodium 100 MG CAPSULE 200 MG PO (21:16)
[2023-08-07 06:26] VITALS: BP 113/51; PULSE 57; RESP 20; TEMP 36.4; O2SAT 94
--- NOTE | 2023-08-07 08:23 | MHC.EDTECH ---
Patient given breakfast and sat up to the edge of the bed.
[2023-08-07] MEDS: Docusate Sodium 100 MG CAPSULE PO ×2 (08:30→19:45)
[2023-08-07] MEDS: Gabapentin 100 MG CAPSULE 200 MG PO ×2 (08:30→19:45)
[2023-08-07 08:31] VITALS: BP 113/51; PULSE 80
[2023-08-07] MEDS: busPIRone HCl 10 MG TABLET PO ×3 (08:31→19:47)
[2023-08-07] MEDS: Metoprolol Tartrate 25 MG TABLET PO ×2 (08:31→19:46)
[2023-08-07] MEDS: lisinopriL 10 MG TABLET PO (08:31)
[2023-08-07] MEDS: metFORMIN HCl 500 MG TABLET PO ×2 (08:31→19:45)
[2023-08-07] MEDS: Omeprazole 20 MG CAPSULE.DR PO (08:31)
[2023-08-07] MEDS: Atorvastatin Calcium 80 MG TABLET PO (08:32)
[2023-08-07] MEDS: lamoTRIgine 100 MG TABLET 200 MG PO (08:32)
[2023-08-07] MEDS: oxyCODONE HCl Immed Release 5 MG TABLET PO ×2 (08:38→19:46)
--- NOTE | 2023-08-07 13:15 | MHC.CM.ED ---
Patient remains in ER overflow. Physical therapy eval not available before Tuesday. Continue to monitor for d/c needs.
[2023-08-07 18:29] VITALS: BP 108/56; PULSE 73; RESP 8; O2SAT 98
[2023-08-07] MEDS: Acetaminophen 325 MG TABLET 650 MG PO (19:45)
[2023-08-07] MEDS: Docusate Sodium 100 MG CAPSULE 200 MG PO (19:45)
[2023-08-07] MEDS: ARIPiprazole 20 MG TABLET PO (19:45)
[2023-08-07 19:46] VITALS: BP 108/56; PULSE 73
[2023-08-08 04:27] VITALS: BP 133/74; PULSE 86; RESP 16; TEMP 36.4; O2SAT 97
--- NOTE | 2023-08-08 06:19 | MHC.EDTECH ---
Patient was assisted to bedside commode times 2 during the night ,Patient drank 3 cans of archie rodger .
[2023-08-08] MEDS: busPIRone HCl 10 MG TABLET PO ×3 (08:15→20:19)
[2023-08-08] MEDS: Docusate Sodium 100 MG CAPSULE PO ×2 (08:15→20:22)
[2023-08-08] MEDS: Gabapentin 100 MG CAPSULE 200 MG PO ×2 (08:15→20:19)
[2023-08-08] MEDS: metFORMIN HCl 500 MG TABLET PO ×2 (08:15→20:18)
[2023-08-08 08:16] VITALS: BP 138/69
[2023-08-08] MEDS: lamoTRIgine 100 MG TABLET 200 MG PO (08:16)
[2023-08-08] MEDS: lisinopriL 10 MG TABLET PO (08:16)
[2023-08-08] MEDS: Omeprazole 20 MG CAPSULE.DR PO (08:16)
[2023-08-08] MEDS: Atorvastatin Calcium 80 MG TABLET PO (08:16)
[2023-08-08 08:19] VITALS: BP 138/69; PULSE 65
[2023-08-08] MEDS: Metoprolol Tartrate 25 MG TABLET PO (08:19)
[2023-08-08 08:51] VITALS: BP 138/69; PULSE 65
--- NOTE | 2023-08-08 09:33 | MHC.CM.ED ---
Addendum entered by Bridget Otero 08/08/23 10:33: [facility], [facility], [facility], [facility], [facility], [facility] and [facility] are able to offer a bed. Attempted to speak with em Rodríguez via telephone at [phone]. Left message requesting return telephone call. Original Note: Patient remains in ER overflow. Physical therapy eval completed. Short term rehab is recommended. Referrals made to all facilities still following. Continue to monitor for d/c needs.
[2023-08-08 15:15] VITALS: BP 141/70; PULSE 70; RESP 18; TEMP 36.8; O2SAT 100
--- NOTE | 2023-08-08 18:43 | PC.NURSE ---
Pt Parish/Ox3. x1A to commode. PT navya completed this AM. Awaiting Rehab placement.
--- NOTE | 2023-08-08 19:09 | PC.NURSE ---
this rn assumed care of pt, pt resting in stretcher watching tv, no acute distress noted.
[2023-08-08 20:17] VITALS: BP 111/58; PULSE 58; RESP 17; TEMP 36.8; O2SAT 97
[2023-08-08] MEDS: Docusate Sodium 100 MG CAPSULE 200 MG PO (20:19)
[2023-08-08] MEDS: ARIPiprazole 20 MG TABLET PO (20:19)
--- NOTE | 2023-08-08 20:21 | PC.NURSE ---
pt medicated per apr, tolerated well with water. holding metoprolol due to low BP/HR, vitals as follows.
--- NOTE | 2023-08-08 21:27 | PC.NURSE ---
pt ambulated to bedside commode with one per assist at this time.
--- NOTE | 2023-08-09 04:03 | MHC.EDTECH ---
PATIENT WAS ASSISTED TO BEDSIDE COMMODE ,VOID LARGE AMOUNT OF URINE AND BACK TO BED ,BILL RON GIVEN .
[2023-08-09 05:27] VITALS: BP 133/69; PULSE 64; RESP 16; TEMP 36.8; O2SAT 97
--- NOTE | 2023-08-09 08:49 | MHC.EDTECH ---
Pt ate 100% of her breakfast and 480cc of fluids
[2023-08-09] MEDS: Omeprazole 20 MG CAPSULE.DR PO (09:14)
[2023-08-09] MEDS: Gabapentin 100 MG CAPSULE 200 MG PO (09:14)
[2023-08-09] MEDS: Atorvastatin Calcium 80 MG TABLET PO (09:14)
[2023-08-09] MEDS: metFORMIN HCl 500 MG TABLET PO (09:14)
[2023-08-09 09:15] VITALS: BP 133/69; PULSE 64
[2023-08-09] MEDS: lamoTRIgine 100 MG TABLET 200 MG PO (09:15)
[2023-08-09] MEDS: busPIRone HCl 10 MG TABLET PO ×2 (09:15→14:50)
[2023-08-09] MEDS: lisinopriL 10 MG TABLET PO (09:15)
[2023-08-09] MEDS: Docusate Sodium 100 MG CAPSULE PO (09:15)
[2023-08-09] MEDS: Metoprolol Tartrate 25 MG TABLET PO (09:15)
[2023-08-09] MEDS: oxyCODONE HCl Immed Release 5 MG TABLET PO (09:20)
--- NOTE | 2023-08-09 09:20 | PC.NURSE ---
patient a&ox3, vss, pt sitting at bedside, pt medicated per order, c/o 09/06 RLE pain- medicated with pain meds, RLE + csm, lungs clear, rr equal/non labored, call vee within reach, will continue to monitor
--- NOTE | 2023-08-09 12:02 | MHC.CM.ED ---
Addendum entered by Bridget Otero 08/09/23 15:37: Patient [facility] go to [facility]. Patient, Earline RN and son Marcos aware. Addendum entered by Bridget Otero 08/09/23 13:08: Spoke with Marcos via telephone. He is aware patient will leave us at 2pm and he will have to go to facility to sign consent forms. Original Note: Insurance auth has been obtained by [facility]. Patient can leave at 2pm. [facility] FU booked. [facility] with chart. Patient, Earline RN and Kaycee DRAPER aware. Attempted to notify patient's son, Marcos, via telephone at [phone]. Left voicemail with d/c info. Continue to monitor for d/c needs.
[2023-08-09] MEDS: Acetaminophen 325 MG TABLET 650 MG PO (13:09)
--- NOTE | 2023-08-09 13:14 | PC.NURSE ---
Iv L AC removed as pt to be discharged 1400
--- NOTE | 2023-08-09 15:06 | PC.NURSE ---
Pt AO to self and place, vague on time. IV removed. Ready for txr to [facility] and agreeable for so. Ambulated with boot and walker in AM with staff assist. Pain meds are helping per pt repot. Comfortable at this time, awaiting EMS for transport.
[2023-08-09 15:30] VITALS: BP 94/51; PULSE 63; RESP 20; TEMP 37.1; O2SAT 98
[2023-08-09 15:34] VITALS: BP 94/51; PULSE 63; RESP 20; TEMP 37.1; O2SAT 98
== END 2023-08-09 15:35 ==
PROVIDERS: Physician Assistant Medical; Emergency Provider Emergency Medicine Emergency Medical Services; PCP Internal Medicine
DX: R42 Dizziness and giddiness (principal); R51.9 Headache, unspecified; M54.2 Cervicalgia; I25.10 Atherosclerotic heart disease of native coronary artery without angina pectoris; M79.604 Pain in right leg; R26.2 Difficulty in walking, not elsewhere classified; R10.2 Pelvic and perineal pain; R11.2 Nausea with vomiting, unspecified; M54.16 Radiculopathy, lumbar region; I13.0 Hypertensive heart and chronic kidney disease with heart failure and stage 1 through stage 4 chronic kidney disease, or unspecified chronic kidney disease; E11.22 Type 2 diabetes mellitus with diabetic chronic kidney disease; N18.30 Chronic kidney disease, stage 3 unspecified; Z79.4 Long term (current) use of insulin; Z03.818 Encounter for observation for suspected exposure to other biological agents ruled out; Z79.899 Other long term (current) drug therapy
CPT/HCPCS: 0241U; 36415; 70450; 71045; 72125; 72170; 73552; 73560; 73590; 73610; 73630; 80048; 80053; 80307; 81003; 82550; 83690; 83735; 84484; 85025; 93005; 96360; 96361; 97162; 99285

== ENCOUNTER → 2023-08-05 10:13 | Outpatient (BNV) | payer OTHER, SELFPAY | PROVIDERS: Emergency Provider Emergency Medicine Emergency Medical Services; Visit Provider Internal Medicine Cardiovascular Disease | DX: I45.2 Bifascicular block (principal) | CPT/HCPCS: 93010 ==

== ENCOUNTER 2023-08-16 10:19 | Outpatient (REF) | payer OTHER, SELFPAY ==
--- NOTE | ~2023-08-16 | XR_ITS ---
EXAMINATION: XR TIBIA AND FIBULA, RIGHT CLINICAL INFORMATION: Pain in knee. COMPARISON: 08/05/2023 TECHNIQUE: AP and lateral views of the right tibia and fibula were obtained. FINDINGS: Redemonstration of a comminuted fracture of the proximal shaft of the fibula with displacement of fracture fragments. Swelling of the adjacent soft tissues. Fracture lines are slightly less distinct suggesting mild interval bridging callus formation. Tiny plantar calcaneal spur. XR/XR tibia fibula RT 2V IMPRESSION: Redemonstration of a comminuted fracture of the proximal shaft of the fibula with displacement of fracture fragments. Swelling of the adjacent soft tissues. Fracture lines are slightly less distinct suggesting mild interval bridging callus formation.
== END 2023-08-16 10:20 | disposition home or self-care (01) ==
LOC: HO.HOSX 10:19
PROVIDERS: Visit Provider Physician Assistant
DX: S82.401A Unspecified fracture of shaft of right fibula, initial encounter for closed fracture (principal)
CPT/HCPCS: 73590; 99212

== ENCOUNTER 2023-08-16 13:57 | Outpatient (AMB) | payer OTHER, SELFPAY ==
--- NOTE | 2023-08-16 14:12 | A.OFFVIS_ITS ---
Vital Signs 08/16/23 14:15 Height 5 ft Weight 138 lb BMI 26.9 Intake Visit Reasons: FC - right fibula proximal end fx Intake Note: Celeste is a 68 year old female who presents today with a boot for a evaluation of her right fibula prox, about 2 weeks ago. Patient reports reports falling to the ground and striking her head on the radio box in her living room. Currently not having too much pain. She expresses that she can walk but she feels sore after. Allergies duloxetine [Cymbalta] Allergy (Unknown, Verified 08/16/23 14:15) Unknown hydroxyzine Allergy (Unknown, Verified 08/16/23 14:15) unknown risperidone Allergy (Unknown, Verified 08/16/23 14:15) Unknown trazodone Allergy (Unknown, Verified 08/16/23 14:15) Unknown quetiapine [From SEROQUEL] Adverse Reaction (Severe, Verified 08/16/23 14:15) Acute Dystonic reaction HPI HPI FC - right fibula proximal end fx: Details: 68-year-old female, who is Indonesian speaking, presents in the office today for an evaluation of right knee pain. The patient presented to the ED via EMS on 08/2023 status post a syncopal episode. X-rays were obtained. The patient was placed in a tall walking boot. While in the office today the patient presents wear the walking boot. She confirms a fall to the ground about two weeks ago causing her to strike her head on a radio box in the living room. She states she is currently not having ?too much pain?. She also reports she can ambulate but feels sore. Patient ambulates with a walker at baseline, per ED note. Patient has a significant medical history of dementia and diabetes mellitus. 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 [facility] Medical History Disc degeneration, lumbar Dermatophytosis Dermatitis Joint pain Depression with anxiety Schizoaffective disorder PTSD (post-traumatic stress disorder) Dementia Smoking CAD (coronary artery disease) Type 2 diabetes mellitus with chronic kidney disease Chronic kidney disease, stage 3 unspecified Type 2 diabetes mellitus with diabetic polyneuropathy Essential hypertension Dyslipidemia Diabetes mellitus with hyperglycemia Surgical History Hx of colonoscopy Hx of cataract surgery Hx of tubal ligation Hx of section Family History Father No problems noted. Mother No problems noted. Social History Household Members: None Household Members Other:: has CHD Services Housing: Apartment Do you presently have visiting nurse or other home services: Yes Unable to assess alcohol history related to: Unknown Alcohol intake: former Patient Tobacco Use Status: Current everyday Tobacco user Tobacco use type: Cigarette Cigarette Packs Per Day: 1 Cigarettes Per Day: 4 Second Hand Smoke Exposure: No Advance Directives Date on File: 09/30/20 service: No Sexual orientation: Straight/Heterosexual Review of Systems Const All systems reviewed & are unremarkable except as noted in HPI and below Physical Exam Vital Signs: BMI result Body Mass Index 26.9 Const General: cooperative and no acute distress Orientation/consciousness: patient oriented x3 Resp Effort & Inspection: normal respiratory effort and able to speak in complete sentences Cardio Peripheral pulses: Peripheral pulses 2+ throughout Skin General skin exam: no rashes or lesions noted Neuro General: patient oriented x3 Extrem Other: Right knee: Tenderness to palpation along the head of the fibula. No pain with tibia/fibula squeeze. Right ankle: Normal to inspection. No ecchymosis, erythema, or edema. No tenderness to palpation over the medial or lateral malleolus. Patient is able to demonstrate dorsiflexion, plantar flexion, pronation and supination. Negative anterior drawer. Sensation intact. Pedal Pulse intact. Office Procedures Fracture Care Fracture Billing Code: Fracture Billing Code Assessment & Plan Assessment & Plan (1) Right fibular fracture: Code(s): S82.401A - Unspecified fracture of shaft of right fibula, initial encounter for closed fracture Category: Medical Plan Ms. Cunha is a 68-year-old female, who is Indonesian speaking, presents in the office today for an evaluation of right knee pain. The patient presented to the ED via EMS on 08/05/2023 status post a syncopal episode. X-rays were obtained. The patient was placed in a tall walking boot. While in the office today the patient presents wear the walking boot. She confirms a fall to the ground about two weeks ago causing her to strike her head on a radio box in the living room. She states she is currently not having ?too much pain?. She also reports she can ambulate but feels sore. Patient ambulates with a walker at baseline, per ED note. Patient has a significant medical history of dementia and diabetes mellitus. 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 The patient will continue to wear the walking boot at this time. She may weight bear as tolerated. Follow-up will be in four weeks with repeat x-rays, or sooner if needed. X-rays of the right tibia/fibula which were obtained while in the office today and were reviewed by me, Celeste Narayan PA-C, redemonstrated a right proximal fibular fracture. X-rays of the right knee, obtained on 08/05/2023, revealed: There is a comminuted fracture of the right proximal fibular shaft. No other fracture seen. Normal joint spaces. No joint effusion. Orders: Orders XR tibia fibula RT 2V Today M25.569 - Pain in unspecified knee Patient Instructions: Scribed by Kaycee Prabhakar ophthalmic medical technologist, for Celeste Narayan PA-C on 08/16/2023 at 1:59 pm, EST. Coding Level of Care Code Est Pt Level 4 (63273) Diagnoses Right fibular fracture S82.401A CPT Codes Fracture Care - Fracture Billing Code: Fracture Billing Code ([id number])
[2023-08-16 14:15] VITALS: BMI 26.9
== END 2023-08-16 14:35 | disposition home or self-care (01) ==
PROVIDERS: PCP Internal Medicine; Visit Provider Physician Assistant
DX: S82.401A Unspecified fracture of shaft of right fibula, initial encounter for closed fracture (principal); W19.XXXA Unspecified fall, initial encounter
CPT/HCPCS: 99214

== ENCOUNTER 2023-09-15 10:33 | Outpatient (REF) | payer OTHER, SELFPAY ==
--- NOTE | ~2023-09-15 | XR_ITS ---
EXAMINATION: XR TIBIA AND FIBULA, RIGHT CLINICAL INFORMATION: Unspecified fracture of shaft of the right fibula COMPARISON: July 2023. TECHNIQUE: AP and lateral views of the right tibia and fibula were obtained. FINDINGS: Comminuted fracture of the proximal right fibula is again observed. There is callus formation observed. Stable osseous alignment appreciated since the previous evaluation. The more distal shafts of the tibia and fibula are unremarkable. Posterior distal tibia intact. XR/XR tibia fibula RT 2V IMPRESSION: Fracture of the proximal right fibula again observed, with stable osseous alignment since the previous evaluation. Callus formation observed.
== END 2023-09-15 10:34 | disposition home or self-care (01) ==
LOC: HO.HOSX 10:33
PROVIDERS: Visit Provider Physician Assistant
DX: S82.401D Unspecified fracture of shaft of right fibula, subsequent encounter for closed fracture with routine healing (principal)
CPT/HCPCS: 73590; 99212

== ENCOUNTER 2023-09-15 14:29 | Outpatient (AMB) | payer OTHER, SELFPAY ==
--- NOTE | 2023-09-15 14:54 | MHC.OFFVIS ---
Vital Signs 09/15/23 15:03 Height 5 ft Weight 138 lb BMI 26.9 Intake Visit Reasons: OV - right fibula proximal end fx 4 wk f/u Intake Note: Celeste is a 68 year old female who presents today with a boot for a evaluation of her Right fibular fracture. Patient reports she is having mild pain, however she feels like she is getting better. She is doing well with PT in her mobility. Allergies duloxetine [Cymbalta] Allergy (Unknown, Verified 09/15/23 15:00) Unknown hydroxyzine Allergy (Unknown, Verified 09/15/23 15:00) unknown risperidone Allergy (Unknown, Verified 09/15/23 15:00) Unknown trazodone Allergy (Unknown, Verified 09/15/23 15:00) Unknown quetiapine [From SEROQUEL] Adverse Reaction (Severe, Verified 09/15/23 15:00) Acute Dystonic reaction HPI HPI OV - right fibula proximal end fx 4 wk f/u: Details: 68-year-old female, who is Hong Konger speaking, presents in the office today for a follow-up of a right fibular fracture, which occurred on 08/05/2023 status post a syncopal episode. I last saw the patient in the office on 08/16/2023 when she was to remain in the walking boot and weight bear as tolerated. ? ? While in the office today, the patient reports she is having mild pain. She confirms participating in PT and states it is helping with her mobility. Overall, the patient states she is doing well. ? ? Patient ambulates with a walker at baseline.? ? Patient has a significant medical history of dementia and diabetes mellitus.? PFSH Medical History Disc degeneration, lumbar Dermatophytosis Dermatitis Joint pain Depression with anxiety Schizoaffective disorder PTSD (post-traumatic stress disorder) Dementia Smoking CAD (coronary artery disease) Type 2 diabetes mellitus with chronic kidney disease Chronic kidney disease, stage 3 unspecified Type 2 diabetes mellitus with diabetic polyneuropathy Essential hypertension Dyslipidemia Diabetes mellitus with hyperglycemia Surgical History Hx of colonoscopy Hx of cataract surgery Hx of tubal ligation Hx of section Family History Father No problems noted. Mother No problems noted. Social History Household Members: None Household Members Other:: has CHD Services Housing: Apartment Do you presently have visiting nurse or other home services: Yes Unable to assess alcohol history related to: Unknown Alcohol intake: former Patient Tobacco Use Status: Current everyday Tobacco user Tobacco use type: Cigarette Cigarette Packs Per Day: 1 Cigarettes Per Day: 4 Second Hand Smoke Exposure: No Advance Directives Date on File: 09/30/20 service: No Sexual orientation: Straight/Heterosexual Review of Systems Const All systems reviewed & are unremarkable except as noted in HPI and below Physical Exam Vital Signs: BMI result Body Mass Index 26.9 Const General: cooperative and no acute distress Orientation/consciousness: patient oriented x3 Resp Effort & Inspection: normal respiratory effort and able to speak in complete sentences Cardio Peripheral pulses: Peripheral pulses 2+ throughout Skin General skin exam: no rashes or lesions noted Neuro General: patient oriented x3 Extrem Other: Right knee: Mild tenderness to palpation along the head of the fibula. No pain with tibia/fibula squeeze. Right ankle: Normal to inspection. No ecchymosis, erythema, or edema. No tenderness to palpation over the medial or lateral malleolus. Patient is able to demonstrate dorsiflexion, plantar flexion, pronation and supination. Negative anterior drawer. Sensation intact. Pedal Pulse intact. Assessment & Plan Assessment & Plan (1) Right fibular fracture: Code(s): S82.401A - Unspecified fracture of shaft of right fibula, initial encounter for closed fracture Category: Medical Plan Ms. Cunha is a 68-year-old female, who is [place]er speaking, presents in the office today for a follow-up of a right fibular fracture, which occurred on 08/05/2023 status post a syncopal episode. I last saw the patient in the office on 08/16/2023 when she was to remain in the walking boot and weight bear as tolerated. ? ? While in the office today, the patient reports she is having mild pain. She confirms participating in PT and states it is helping with her mobility. Overall, the patient states she is doing well. ? ? Patient ambulates with a walker at baseline.? ? Patient has a significant medical history of dementia and diabetes mellitus.? ? The patient may discontinue the use of the boot at this time. She may weight bear as tolerated. I recommend for her to continue to work with PT on ROM of the right knee and right ankle with the assistance of a walker. She was instructed should she have any increase in pain she should contact the office immediately and return to the boot. Follow-up will be in four weeks with repeat x-rays, or sooner if needed. ? ? X-rays of the right tibia/fibular which were obtained while in the office today and were reviewed by me, Celeste Narayan PA-C, revealed routine healing of a right proximal tibia fracture. ? Orders: Orders XR tibia fibula RT 2V Today S82.401A - Unspecified fracture of shaft of right fibula, initial encounter for closed fracture Patient Instructions: Scribed by Kaycee Prabhakar, medical/surgery registered nurse, for Celeste Narayan PA-C on 09/15/2023 at 3:26 pm, EST.? Coding Level of Care Code Global (60948) Diagnoses Right fibular fracture S82.401A
[2023-09-15 15:03] VITALS: BMI 26.9
== END 2023-09-15 15:15 | disposition home or self-care (01) ==
PROVIDERS: PCP Internal Medicine; Visit Provider Physician Assistant
DX: S82.401A Unspecified fracture of shaft of right fibula, initial encounter for closed fracture (principal)
CPT/HCPCS: 99213

== ENCOUNTER 2023-10-13 10:15 | Outpatient (REF) | payer OTHER, SELFPAY ==
--- NOTE | ~2023-10-13 | XR_ITS ---
EXAMINATION: XRT TIBIA-FIBULA, RIGHT CLINICAL INFORMATION: Fracture follow-up COMPARISON: Radiographs 09/15/2023 TECHNIQUE: AP and lateral radiographs of the right tibia/fibula FINDINGS: Increasing calcification within and surrounding the comminuted fracture of the proximal fibula. Stable alignment. No new abnormality. XR/XR tibia fibula RT 2V IMPRESSION: Increasing calcification within and surrounding the comminuted fracture of the proximal fibula. Stable alignment. Electronically signed by: Kenrick Nogueira MD 10/23/2023 03:53 PM EDT
== END 2023-10-13 10:16 | disposition home or self-care (01) ==
LOC: HO.HOSX 10:15
PROVIDERS: Visit Provider Physician Assistant
DX: S82.401D Unspecified fracture of shaft of right fibula, subsequent encounter for closed fracture with routine healing (principal)
CPT/HCPCS: 73590; 99212

== ENCOUNTER 2023-10-13 14:40 | Outpatient (AMB) | payer OTHER, SELFPAY ==
--- NOTE | 2023-10-13 15:13 | A.OFFVIS_ITS ---
Intake Visit Reasons: OV - Right fibular fracture Intake Note: Celeste is a 68 year old left hand dominant female who presents today with a boot for a evaluation of her Right fibular fracture. Patient report she is doing well, no pain or discomfort. Allergies duloxetine [Cymbalta] Allergy (Unknown, Verified 10/13/23 15:17) Unknown hydroxyzine Allergy (Unknown, Verified 10/13/23 15:17) unknown risperidone Allergy (Unknown, Verified 10/13/23 15:17) Unknown trazodone Allergy (Unknown, Verified 10/13/23 15:17) Unknown quetiapine [From SEROQUEL] Adverse Reaction (Severe, Verified 10/13/23 15:17) Acute Dystonic reaction HPI HPI OV - Right fibular fracture: Details: 68-year-old?female, who is German speaking, presents in the office today for a follow-up of a right fibular fracture, which occurred on 08/05/2023 status post a syncopal episode. I last saw the patient in the office on 09/15/23 when she was instructed to discontinue the use of the walking boot. She was encouraged to work with PT on ROM of the right knee and ankle.? ? While in the office today, the patient reports she is doing well with no pain or discomfort.? [facility] Medical History Disc degeneration, lumbar Dermatophytosis Dermatitis Joint pain Depression with anxiety Schizoaffective disorder PTSD (post-traumatic stress disorder) Dementia Smoking CAD (coronary artery disease) Type 2 diabetes mellitus with chronic kidney disease Chronic kidney disease, stage 3 unspecified Type 2 diabetes mellitus with diabetic polyneuropathy Essential hypertension Dyslipidemia Diabetes mellitus with hyperglycemia Surgical History Hx of colonoscopy Hx of cataract surgery Hx of tubal ligation Hx of section Family History Father No problems noted. Mother No problems noted. Social History Household Members: None Household Members Other:: has CHD Services Housing: Apartment Do you presently have visiting nurse or other home services: Yes Unable to assess alcohol history related to: Unknown Alcohol intake: former Patient Tobacco Use Status: Current everyday Tobacco user Tobacco use type: Cigarette Cigarette Packs Per Day: 1 Cigarettes Per Day: 4 Second Hand Smoke Exposure: No Advance Directives Date on File: 09/30/20 service: No Sexual orientation: Straight/Heterosexual Review of Systems Const All systems reviewed & are unremarkable except as noted in HPI and below Physical Exam Const General: cooperative, healthy appearing and no acute distress Resp Effort & Inspection: normal respiratory effort and able to speak in complete sentences Cardio Rate: regular rate Peripheral pulses: Peripheral pulses 2+ throughout GI Palpation (GI): Soft to palpation Skin Lesions: no lesions Rashes: no rashes Extrem Other: Right knee: Normal to inspection. No ecchymosis, erythema, or joint effusion. No tenderness to palpation along the medial or lateral joint lines. No tenderness to palpation over the fibular head. Full knee extension and flexion. Negative Brina's. Negative anterior drawer. NVI.? Assessment & Plan Assessment & Plan (1) Right fibular fracture: Code(s): S82.401A - Unspecified fracture of shaft of right fibula, initial encounter for closed fracture Category: Medical Plan Ms. Cunha is a 68-year-old?female, who is German speaking, presents in the office today for a follow-up of a right fibular fracture, which occurred on 08/05/2023 status post a syncopal episode. I last saw the patient in the office on 09/15/23 when she was instructed to discontinue the use of the walking boot. She was encouraged to work with PT on ROM of the right knee and ankle.? ? While in the office today, the patient reports she is doing well with no pain or discomfort.? ? The patient may return to normal activities as tolerated. She may return to her day program. Follow-up will be PRN, or sooner if needed. ? ? X-rays of the right fibula which were obtained while in the office today and were reviewed by me, Celeste Narayan PA-C, revealed routine healing of a right fibular fracture. ? Orders: Orders XR tibia fibula RT 2V 10/13/23 S82.401A - Unspecified fracture of shaft of right fibula, initial encounter for closed fracture Patient Instructions: Scribed by Kaycee Rodeen, medical record specialist, for Celeste Helene ALFARO on 10/13/2023 at 3:26 pm, EST.? Coding Level of Care Code Global (06560) Diagnoses Right fibular fracture S82.401A
== END 2023-10-13 15:22 | disposition home or self-care (01) ==
LOC: HO.HOS 14:40
PROVIDERS: PCP Internal Medicine; Visit Provider Physician Assistant
DX: S82.401A Unspecified fracture of shaft of right fibula, initial encounter for closed fracture (principal)
CPT/HCPCS: 99212

== ENCOUNTER 2023-10-14 15:23 | Outpatient (REF) | payer OTHER, SELFPAY ==
--- NOTE | ~2023-10-14 | XR_ITS ---
EXAMINATION: XR CHEST CLINICAL INFORMATION: Positive T-spot. COMPARISON: 08/05/2023 TECHNIQUE: PA and lateral views of the chest FINDINGS: Hazy chronic airspace opacification is again seen in the right lower lobe, unchanged. No new airspace opacities. Left lung is clear. Cardiac and mediastinal contours are normal. Pulmonary vasculature is unremarkable. Calcific atherosclerosis is present in the thoracic spine. XR/XR chest 2V IMPRESSION: Chronic airspace opacification in the right lower lobe, unchanged from prior, potentially corresponding to an infectious or inflammatory process.
== END 2023-10-14 15:24 | disposition home or self-care (01) ==
LOC: HO.HHCX 15:23
PROVIDERS: Visit Provider Internal Medicine
DX: R76.11 Nonspecific reaction to tuberculin skin test without active tuberculosis (principal)
CPT/HCPCS: 71046

== ENCOUNTER 2024-01-07 11:43 | Emergency (ER) | payer OTHER, SELFPAY ==
[2024-01-07 11:48] VITALS: BP 142/78; PULSE 80; O2SAT 97
[2024-01-07 11:56] VITALS: BP 152/67; PULSE 72; RESP 18; TEMP 36.6; O2SAT 96; BMI 30.3
[2024-01-07 12:22] LABS: Appearance Urine Clear; Color Urine Yellow; Glucose Urine UA 100 mg/dL (Negative); Leukocyte Esterase Urine Trace (Negative); Nitrite Urine Negative (Negative); Specific Gravity - Urine <= 1.005 (1.005-1.025); UMIC TRIGGER UACC YES; Urine Blood Negative (Negative); Urine Ketones Negative (Negative); Urine Protein Negative (Neg-Trace)
[2024-01-07 12:27] LABS: Bacteria Urine Trace (None Seen); Hyaline Casts Urine 0-2 /LPF (0-2); RBC Urine 0-2 /HPF (0-2); UACC Culture Trigger YES
--- NOTE | 2024-01-07 12:44 | ED.GENADULT ---
HPI - General Adult General Chief complaint: General Medical Stated complaint: RASH Time Seen by Provider: 01/07/24 11:51 Source: patient Mode of arrival: ambulatory Limitations: no limitations History of Present Illness ED Provider: BARON Marion HPI narrative: This is a 68-year-old female history of diabetes, CKD, dyslipidemia, obesity, hypertension presents w painful rash in groin region, it is red, itchy, when patient urinates she reports burning around the labia. This has been going on for 2-3 days. She reports she used to get this all the time however has not gotten in a while. Denies fevers, chills, nausea, vomiting, abdominal pain, headache, vision changes, dizziness, weakness, changes in bowel habits, blood in urine or stool. Related Data Home Medications ?Medication ?Instructions ?Recorded ?Confirmed aripiprazole 20 mg tablet 20 mg PO BEDTIME 09/07/22 08/05/23 gabapentin 100 mg capsule 200 mg PO BID 05/16/23 08/05/23 lamotrigine 200 mg tablet 200 mg PO DAILY 05/16/23 08/05/23 acetaminophen 650 mg 650 mg PO Q8H PRN mild pain 08/05/23 08/05/23 tablet,extended release dulaglutide 0.75 mg/0.5 mL 0.75 mg subcut QWEEK 08/05/23 08/05/23 subcutaneous pen injector (Trulicity) insulin aspart U-100 100 unit/mL subcut 08/05/23 (3 mL) subcutaneous pen (Novolog FlexPen U-100 Insulin aspart) buspirone 5 mg tablet mg PO 10/13/23 lamotrigine 100 mg tablet 100 mg PO BID 10/13/23 Previous Rx's ?Medication ?Instructions ?Recorded lancets 28 gauge (FreeStyle #100 ea 10/09/20 Lancets) pen needle, diabetic 32 gauge x #100 ea 01/05/22 (Unifine Pentips) docusate sodium 100 mg capsule 200 mg (2 x 100 mg) PO BEDTIME 05/19/22 #180 caps flash glucose scanning reader #1 ea 06/16/22 (FreeStyle Ni 2 [place]) flash glucose sensor (FreeStyle #2 kits 07/21/23 Ni 2 Sensor kit) blood sugar diagnostic (FreeStyle #100 ea 08/04/23 Lite Strips) blood-glucose meter (FreeStyle #1 ea 08/04/23 Lite Meter kit) cephalexin 500 mg tablet 500 mg PO Q6H 7 days #28 tabs 01/07/24 nystatin 100,000 unit/gram topical 1 appl topical BID #30 grams 01/07/24 powder Allergies Allergy/AdvReac Type Severity Reaction Status Date / Time duloxetine [Cymbalta] Allergy Unknown Unknown Verified 01/07/24 11:59 hydroxyzine Allergy Unknown unknown Verified 01/07/24 11:59 risperidone Allergy Unknown Unknown Verified 01/07/24 11:59 trazodone Allergy Unknown Unknown Verified 01/07/24 11:59 quetiapine [From SEROQUEL] AdvReac Severe Acute Verified 01/07/24 11:59 Dystonic reaction Review of Systems Review of Systems: Yes all other systems are reviewed and are negative [facility] Past Medical History Attestation statement: The following information was validated with the patient. Source: old records reviewed and nursing notes reviewed Medical History Disc degeneration, lumbar Dermatophytosis Dermatitis Joint pain Depression with anxiety Schizoaffective disorder PTSD (post-traumatic stress disorder) Dementia Smoking CAD (coronary artery disease) Type 2 diabetes mellitus with chronic kidney disease Chronic kidney disease, stage 3 unspecified Type 2 diabetes mellitus with diabetic polyneuropathy Essential hypertension Dyslipidemia Diabetes mellitus with hyperglycemia Surgical History Hx of colonoscopy Hx of cataract surgery Hx of tubal ligation Hx of section Family History Family History Father No problems noted. Mother No problems noted. Social History Social History Household Members: None Household Members Other:: has CHD Services Housing: Apartment Do you presently have visiting nurse or other home services: Yes Unable to assess alcohol history related to: Unknown Alcohol intake: former Patient Tobacco Use Status: Current everyday Tobacco user Tobacco use type: Cigarette Cigarette Packs Per Day: 1 Cigarettes Per Day: 4 Second Hand Smoke Exposure: No Advance Directives: No Advance Directives Information Provided: No Advance Directives Date on File: 09/30/20 service: No Sexual orientation: Straight/Heterosexual Physical Exam ED Vital Signs: Vital Signs - 24 hr 01/07/24 11:56 Temperature 97.8 F Pulse Rate 72 Respiratory Rate 18 Blood Pressure 152/67 H Pulse Oximetry 96 Oxygen Delivery Method Room Air BMI result Body Mass Index 30.3 vss Appearance: Alert.? Oriented X3.? No acute distress.? Head: Normocephalic, atraumatic, no step-offs or deformities Eyes: Pupils equal, round and reactive to light.? Neck: Normal inspection.? Neck supple.? CVS: Normal heart rate and rhythm.? Pulses normal.? Respiratory: No respiratory distress.? Breath sounds normal.? Abdomen: Soft and nontender.? Skin: Skin warm and dry.? Normal skin color.? Normal skin turgor.?+ erythema and warmth overlying labia majora bilaterally, there is also intertrigo noted in skin folds of groin and lower abdomen. Normal mucus membranes. Extremities: No lower extremity edema.? No calf ttp. 5/5 strength to bilateral upper and lower extremities Neuro: Oriented X 3.? No motor deficit.? No sensory deficit. CN 2-12 intact Course Reevaluation(s) Reevaluation #1: UA without infection. Rash very mild, will treat with antibiotics no indication for labs at this time I do not suspect necrotizing infection. Mucous membranes not involved unlikely SJS, [place]. Will send her with nystatin and Keflex. Educated patient on diagnosis and treatment plan, answered all question, patient verbalizes understanding. At this time patient will be discharged home, advised to return with new or worsening symptoms. Educated on worrisome signs and symptoms and when to return. At this time I feel comfortable discharge home. Time: 13:22 Medical Decision Making Medical Decision Making MDM Narrative: 68-year-old female presents with concerns of rash periarea. Physical exam + erythema and warmth overlying labia majora bilaterally, there is also intertrigo noted in skin folds of groin and lower abdomen. History and physical exam concerning for intertrigo/use with cellulitis. Unlikely Fourniers, necrotizing infection. Unlikely metabolic derangments. Plan- UA Differential Diagnosis Differential Diagnoses: The differential diagnosis associated with the presentation includes (History and physical exam concerning for intertrigo/use with cellulitis. Unlikely Fourniers, necrotizing infection. Unlikely metabolic derangments. ) Admission/Observation Consideration of admission/observation: Escalation of care including admission/observation considered Lab Data MDM Lab Attestation statement: I reviewed the patient's lab results. Labs: Lab Results 01/07/24 Range/Units 12:15 Urine Color Yellow Urine Appearance Clear Urine pH 6.0 (5.0-9.0) Ur Specific [place] <= 1.005 (1.005-1.025) Urine Protein Negative (Neg-Trace) mg/dL Urine Glucose (UA) 100 H (Negative) mg/dL Urine Ketones Negative (Negative) mg/dL Urine Blood Negative (Negative) Urine Nitrite Negative (Negative) Ur Leukocyte Esterase Trace H (Negative) Urine RBC 0-2 (0-2) /HPF Urine WBC 6-10 H (0-5) /HPF Ur Squamous Epith Cells 6-10 (0-2) /HPF Urine Bacteria Trace (None Seen) Hyaline Casts 0-2 (0-2) /LPF External Record Review External record reviewed: Inpatient record, Office record, Outpatient record, Prior outpatient labs, Prior outpatient radiology, Primary care record and Outside ED record Discharge Plan Discharge Clinical Impression: Cellulitis of labia, Yeast dermatitis Patient Disposition: Home, Self-Care Instructions: Skin Yeast Infection (ED) Additional Instructions: Take your medications as prescribed. If you were prescribed antibiotics today, it is important that you take your medication to their entirety, do not skip any doses, do not finish them early. Follow-up with your primary care provider this week. Return to the emergency department with new or worsening symptoms. Such as fevers, chills, chest pain, shortness of breath, nausea, vomiting, dizziness, headache, vision changes, lethargy In case of emergency call 911 Prescriptions: New nystatin 100,000 unit/gram powder 1 appl topical BID Qty: 30 0RF cephalexin 500 mg tablet 500 mg PO Q6H 7 Days Qty: 28 0RF No Action (DME) pen needle, diabetic [Unifine Pentips] 32 gauge x 5/32 needle 1 ea miscellaneous TID Qty: 100 1RF Rx Instructions: 4x daily (DME) FreeStyle Ni 2 Sensor Kit See Rx Instructions .ROUTE .COMPLEX Qty: 2 5RF Dose Instruction: As directed change every 14 days Rx Instructions: As directed change every 14 days (DME) FreeStyle Lite Strips Strip See Rx Instructions .Route Qty: 100 5RF Rx Instructions: Tests 4X/day (DME) blood-glucose meter [FreeStyle Lite Meter] Kit See Rx Instructions .ROUTE .MEDSUPPLY Qty: 1 0RF Rx Instructions: As directed 2x/day (DME) lancets [FreeStyle Lancets] 28 gauge misc 1 gauge topical TID Qty: 100 11RF acetaminophen 650 mg tablet extended release 650 mg PO Q8H PRN (Reason: mild pain) insulin aspart U-100 [Novolog FlexPen U-100 Insulin] 100 unit/mL (3 mL) insulin pen subcut Trulicity 0.75 mg/0.5 mL pen injector 0.75 mg subcut QWEEK lamotrigine 200 mg tablet 200 mg PO DAILY gabapentin 100 mg capsule 200 mg PO BID (DME) FreeStyle Ni 2 [place] Misc See Rx Instructions .Route Qty: 1 0RF Rx Instructions: As directed docusate sodium 100 mg capsule 200 mg PO BEDTIME Qty: 180 3RF aripiprazole 20 mg tablet 20 mg PO BEDTIME buspirone 5 mg tablet PO lamotrigine 100 mg tablet 100 mg PO BID Referrals: [facility] [Primary Care Provider] - 2 days Print Language: South [place]
[2024-01-07 13:28] VITALS: BP 147/77; PULSE 70; RESP 18; TEMP 36.7; O2SAT 97
[2024-01-07] MEDS: Nystatin Powder 15 GM BOTTLE 1 APPL TOPICAL (13:30)
== END 2024-01-07 13:35 | disposition home or self-care (01) ==
PROVIDERS: Emergency Provider Emergency Medicine
DX: N76.2 Acute vulvitis (principal); L30.8 Other specified dermatitis; R21 Rash and other nonspecific skin eruption; E11.22 Type 2 diabetes mellitus with diabetic chronic kidney disease; I12.9 Hypertensive chronic kidney disease with stage 1 through stage 4 chronic kidney disease, or unspecified chronic kidney disease; N18.30 Chronic kidney disease, stage 3 unspecified; E78.5 Hyperlipidemia, unspecified; Z79.85 Long-term (current) use of injectable non-insulin antidiabetic drugs; Z79.4 Long term (current) use of insulin; Z79.899 Other long term (current) drug therapy; F17.210 Nicotine dependence, cigarettes, uncomplicated
CPT/HCPCS: 81001; 87086; 99282; 99283

== ENCOUNTER 2024-01-09 14:50 | Outpatient (REF) | payer OTHER, SELFPAY ==
--- NOTE | ~2024-01-09 | MM_ITS ---
EXAMINATION: MM DIAGNOSTIC DIGITAL BREAST TOMOSYNTHESIS, BILATERAL CLINICAL INFORMATION: 1 year follow-up for probably benign calcifications left breast, 3:00 in the mid and central regions. COMPARISON: Mammography: 03/11/2023, 08/16/2022, 07/23/2022 (BI-RADS 0), 06/05/2021. Available priors. TECHNIQUE: Digital breast tomosynthesis is performed in both the craniocaudal and mediolateral oblique views along with computer-aided detection (CAD). Synthesized 2D images are generated from the tomosynthesis. In addition to standard views, 2-D spot magnification left CC x2, and left ML x2 views were obtained. FINDINGS: The breasts are heterogeneously dense, which may obscure small masses (ACR BI-RADS breast composition Category c). There are now 3 distinct groups of calcifications in the middle depth slightly superomedial, and 3:00 axis right breast posterior. These have progressed in both number of calcifications at all sites, as well as slight worsening of pleomorphism involving all 3 groups. They have similar morphology and appearance. They are indeterminate, and sampling is recommended to ensure benignity. Stereotactic of the 2 superior and medial groups is recommended, with optional third site at 3:00, although underlying etiology is felt to most likely be the same. No suspicious findings in the right breast. No additional suspicious findings in the left breast. There are stable benign findings in both breasts. MM/MM tomosynthesis diagnostic BI IMPRESSION: -There are now 3 groups of indeterminate calcifications in the LEFT breast as detailed. Sampling of the medial superior 2 groups, mid to anterior depth is now recommended for definitive characterization. Optional sampling of third group of 3:00 posterior depth per discretion of radiologist. -Discussion was held with the patient with the aid of an interpreter and translator. Due to underlying condition, she is unable to undergo a prone stereotactic biopsy, and upright unit is recommended. Arrangements will be made for stereotactic biopsy via the upright unit at [facility]. -No suspicious findings in the RIGHT breast. ASSESSMENT: BI-RADS BI-RADS 4 - Suspicious finding RECOMMENDATION: Biopsy recommended Results were provided to the patient at time of visit by the technologist. This patient's information was entered into a reminder system with a target due date for their next mammogram. Electronically signed by: Tramaine Purdy MD 01/09/2024 04:42 PM [facility]
== END 2024-01-09 14:51 | disposition home or self-care (01) ==
LOC: HO.MAMMO 14:50
PROVIDERS: PCP Internal Medicine; Visit Provider Internal Medicine
DX: R92.1 Mammographic calcification found on diagnostic imaging of breast (principal)
CPT/HCPCS: 77062; 77066

== ENCOUNTER → 2024-01-09 15:00 | Outpatient (BNV) | payer OTHER, SELFPAY | PROVIDERS: PCP Internal Medicine; Visit Provider Radiology Diagnostic Radiology | DX: R92.1 Mammographic calcification found on diagnostic imaging of breast (principal); R92.333 Mammographic heterogeneous density, bilateral breasts | CPT/HCPCS: 77066; G0279 ==

== ENCOUNTER 2024-01-18 10:42 | Outpatient (REF) | payer OTHER, SELFPAY ==
[2024-01-18 12:13] LABS: Anion Gap 13 (12-20); Blood Urea Nitrogen 19 mg/dL (9-16); Calcium 10.2 mg/dL (8.4-10.2); Carbon Dioxide 28 mmol/L (22-29); Chloride 97 mmol/L (96-108); Estimated Glomerular Filt Rate > 60; Glucose Random 132 mg/dL (60-115); Magnesium 1.5 mg/dL (1.6-2.6); Potassium 4.2 mmol/L (3.3-5.1); Sodium 134 mmol/L (135-145)
[2024-01-23 21:53] LABS: NT-proBNP 321 pg/mL (<125)
== END 2024-01-18 10:43 | disposition home or self-care (01) ==
LOC: HO.LAB 10:42
PROVIDERS: PCP Internal Medicine; Visit Provider Registered Nurse
DX: R60.9 Edema, unspecified (principal)
CPT/HCPCS: 36415; 80048; 83735; 83880

== ENCOUNTER 2024-01-19 08:47 | Outpatient (AMB) | payer OTHER, MEDICAID, SELFPAY ==
--- NOTE | 2024-01-19 08:48 | A.OFFVIS_ITS ---
Vital Signs 01/19/24 09:00 Height 5 ft Weight 155 lb 3.287 oz BMI 30.3 Intake Visit Reasons: Stereo Bx LT breast cals Intake Note: This patient presents for Stereotactic biopsy for left breast calcifications. Pt c/o; reports breast pain/discomfort. Interventional Neuroradiologist Required: Yes Interventional Neuroradiologist Language: Machine Sander Services: Interventional Neuroradiologist Present Interventional Neuroradiologist Name: Nando Information Interpreted: non-clinical & clinical Accompanied by: ENVIRONMENTAL SERVICES COORDINATOR Allergies duloxetine [Cymbalta] Allergy (Unknown, Verified 01/19/24 09:01) Unknown hydroxyzine Allergy (Unknown, Verified 01/19/24 09:01) unknown risperidone Allergy (Unknown, Verified 01/19/24 09:01) Unknown trazodone Allergy (Unknown, Verified 01/19/24 09:01) Unknown quetiapine [From SEROQUEL] Adverse Reaction (Severe, Verified 01/19/24 09:01) Acute Dystonic reaction Medication List - Last Reconciled 01/19/24 by Darrin Benitez MD acetaminophen ER 650 mg PO Q8H PRN aripiprazole mg PO BID aripiprazole 20 mg PO BEDTIME aspirin 81 mg PO DAILY atorvastatin 80 mg PO DAILY blood sugar diagnostic (FreeStyle Lite Strips) Tests 4X/day blood-glucose meter (FreeStyle Lite Meter kit) As directed 2x/day buspirone mg PO buspirone 10 mg PO TID docusate sodium 200 mg (2 x 100 mg) PO BEDTIME dulaglutide (Trulicity) 0.75 mg subcut QWEEK flash glucose scanning reader (Mind CandyStyle Ni 2 [place]) As directed flash glucose sensor (FreeStyle Ni 2 Sensor kit) As directed change every 14 days furosemide 20 mg PO DAILY gabapentin 200 mg PO BID insulin aspart U-100 (Novolog FlexPen U-100 Insulin aspart) subcut lamotrigine 200 mg PO DAILY lamotrigine 100 mg PO BID lamotrigine mg PO BID lancets (FreeStyle Lancets) lisinopril 10 mg PO DAILY lorazepam mg PO DAILY magnesium oxide 400 mg PO BID metformin 500 mg PO BID metoprolol tartrate 25 mg PO BID pantoprazole 40 mg PO DAILY pen needle, diabetic (Unifine Pentips) 4x daily repaglinide 2 mg PO TID sennosides (senna) mg PO DAILY sertraline mg PO trazodone 50 mg PO BEDTIME HPI HPI Stereo Bx LT breast cals: Details: [age] year old female referred for left breast calcifications. She had undergone a mammogram last week and she was noted to have 3 groups of indeterminate calcifications on the left breast. A stereotactic side biopsy had been recommended for at least 2 of these groups of calcifications She denies any palpable mass Her menarche was at age of 14. She had a total of 4 pregnancies but she does not recall exactly when she had her 1st . She denies any family history of breast cancer. She lives by herself but has a ENVIRONMENTAL SERVICES COORDINATOR taking care of her. She appears to have limited baseline level of activities. She uses a walker. She depends on another caregiver who brings her food. [facility] Medical History Breast calcification, left Disc degeneration, lumbar Dermatophytosis Dermatitis Joint pain Depression with anxiety Schizoaffective disorder PTSD (post-traumatic stress disorder) Dementia Smoking CAD (coronary artery disease) Type 2 diabetes mellitus with chronic kidney disease Chronic kidney disease, stage 3 unspecified Type 2 diabetes mellitus with diabetic polyneuropathy Essential hypertension Dyslipidemia Diabetes mellitus with hyperglycemia Surgical History Hx of colonoscopy Hx of cataract surgery Hx of tubal ligation Hx of section Family History Father No problems noted. Mother No problems noted. Social History Household Members: None Household Members Other:: has [facility] Services Housing: Apartment Do you presently have visiting nurse or other home services: Yes Unable to assess alcohol history related to: Unknown Alcohol intake: former Patient Tobacco Use Status: Current everyday Tobacco user Tobacco use type: Cigarette Cigarette Packs Per Day: 1 Cigarettes Per Day: 4 Second Hand Smoke Exposure: No Advance Directives Date on File: 09/30/20 service: No Sexual orientation: Straight/Heterosexual Review of Systems Const Denies chills and Denies fever(s) Card Denies chest pain Resp Reports wheezing GI Denies abdominal pain and Denies hematochezia Musc Reports abnormal gait, Reports back pain and Reports arthralgias Neuro Reports abnormal gait Aller/Immun Reports wheezing Physical Exam Vital Signs: BMI result Body Mass Index 30.3 Const Other: Using a walker, appears frail General: comfortable Chest Other: No palpable breast masses, no axillary lymphadenopathy, no obvious skin or nipple changes Resp Effort & Inspection: normal respiratory effort Cardio Rate: regular rate GI Palpation (GI): Soft to palpation Assessment & Plan Assessment & Plan (1) Breast calcification, left: Code(s): R92.1 - Mammographic calcification found on diagnostic imaging of breast Category: Medical Plan: She has multiple calcifications on mammogram as described above. Stereotactic biopsy has been recommended by the radiologist for at least 2 of these calcifications. I explained to her the technique of this procedure. I told her that I should see her in the office to discuss the path report thereafter She is unable to lie down prone so she is being scheduled for the stereotactic biopsy with an upright machine in [place]. Orders: Orders MM stereotactic biopsy LT 01/18/24 R92.1 - Mammographic calcification found on diagnostic imaging of breast MM stereotactic biopsy ea add Today R92.1 - Mammographic calcification found on diagnostic imaging of breast Coding Level of Care Code New Pt Level 3 (36922) Diagnoses Breast calcification, left R92.1
[2024-01-19 09:00] VITALS: BMI 30.3
== END 2024-01-19 09:22 | disposition home or self-care (01) ==
LOC: HO.HGS 08:47
PROVIDERS: PCP Internal Medicine; Visit Provider Surgery
DX: R92.1 Mammographic calcification found on diagnostic imaging of breast (principal)
CPT/HCPCS: 99203

== ENCOUNTER → 2024-01-19 08:47 | Outpatient (BNVA) | payer OTHER, MEDICAID, SELFPAY | PROVIDERS: PCP Internal Medicine; Visit Provider Surgery | DX: R92.1 Mammographic calcification found on diagnostic imaging of breast (principal) | CPT/HCPCS: 99202 ==

== ENCOUNTER 2024-01-20 15:27 | Outpatient (AMB) | payer OTHER, MEDICAID, SELFPAY ==
--- NOTE | 2024-01-20 15:29 | HO.NEPHOV ---
Intake Visit Reasons: HTN/ Pt missed 08/03/23 appointment Boot Lace Cutter Machine Required: Yes Boot Lace Cutter Machine Language: Mechanical Manufacturing Technician Services: Boot Lace Cutter Machine Offered & Declined ([facility] [place] awning hanger supervisor services refused. ) Boot Lace Cutter Machine Name: Daylin- drywall worker Accompanied by: Other Relationship Allergies duloxetine [Cymbalta] Allergy (Unknown, Verified 01/20/24 15:36) Unknown hydroxyzine Allergy (Unknown, Verified 01/20/24 15:36) unknown risperidone Allergy (Unknown, Verified 01/20/24 15:36) Unknown trazodone Allergy (Unknown, Verified 01/20/24 15:36) Unknown quetiapine [From SEROQUEL] Adverse Reaction (Severe, Verified 01/20/24 15:36) Acute Dystonic reaction HPI Comments Details: 68 year old female with Depression with anxiety, Schizoaffective disorder, PTSD (post-traumatic stress disorder), Dementia, CAD (coronary artery disease), Type 2 diabetes mellitus with mild chronic kidney disease, Chronic kidney disease, stage 3 unspecified, Type 2 diabetes mellitus with diabetic polyneuropathy, Essential hypertension, Dyslipidemia with H/O hyponatremia was seen in follow up today. She was not following any fluid restriction. Her mental status remain at baseline. She does not have any weakness or falls. She was accompanied by [facility] line up worker [facility] Medical History Breast calcification, left Disc degeneration, lumbar Dermatophytosis Dermatitis Joint pain Depression with anxiety Schizoaffective disorder PTSD (post-traumatic stress disorder) Dementia Smoking CAD (coronary artery disease) Type 2 diabetes mellitus with chronic kidney disease Chronic kidney disease, stage 3 unspecified Type 2 diabetes mellitus with diabetic polyneuropathy Essential hypertension Dyslipidemia Diabetes mellitus with hyperglycemia Surgical History Hx of colonoscopy Hx of cataract surgery Hx of tubal ligation Hx of section Family History Father No problems noted. Mother No problems noted. Social History Household Members: None Household Members Other:: has [facility] Services Housing: Apartment Do you presently have visiting nurse or other home services: Yes Unable to assess alcohol history related to: Unknown Alcohol intake: former Patient Tobacco Use Status: Current everyday Tobacco user Tobacco use type: Cigarette Cigarette Packs Per Day: 1 Cigarettes Per Day: 4 Second Hand Smoke Exposure: No Advance Directives Date on File: 09/30/20 service: No Sexual orientation: Straight/Heterosexual Review of Systems Const All systems reviewed & are unremarkable except as noted in HPI and below Physical Exam Const General: comfortable and no acute distress Orientation/consciousness: patient oriented x3 HEENT Head: Yes normocephalic Mouth: Normal oral and palatal mucosa present Eyes EOM: EOMs intact bilaterally Neck Neck: Yes supple Resp Auscultation: clear to auscultation bilaterally Cardio Jugular venous distension: no JVD Rate: regular rate GI Palpation (GI): Soft to palpation Auscultation: normal bowel sounds General: Yes no CVA tenderness Back/Spine/Pelvis Back: no CVA tenderness Skin General skin exam: no rashes or lesions noted Neuro General: patient oriented x3 and moves all extremities Extrem General: Yes no pedal edema Results Reviewed Nephrology Results: Sodium 134 mmol/L (135-145) L 01/18/24 Potassium 4.2 mmol/L (3.3-5.1) 01/18/24 Chloride 97 mmol/L (96-108) 01/18/24 Carbon Dioxide 28 mmol/L (22-29) 01/18/24 BUN 19 mg/dL (9-16) H 01/18/24 Creatinine 0.83 mg/dL (0.5-1.4) 01/18/24 Calcium 10.2 mg/dL (8.4-10.2) 01/18/24 Urine Protein Negative mg/dL (Neg-Trace) 01/07/24 Assessment & Plan Assessment & Plan (1) Hyponatremia: Code(s): E87.1 - Hypo-osmolality and hyponatremia Category: Medical (2) Hypertension: Code(s): I10 - Essential (primary) hypertension Category: Medical Qualifiers: Hypertension type: primary hypertension Qualified Code(s): I10 - Essential (primary) hypertension Plan H/O Hyponatremia -- likely multifactorial Has excess ADH at baseline Euvolemic. Serum Na close to baseline Cortisol/TSH - OK Immunofixation normal Mentation is at baseline now Renal function/Liver function normal No signs of CHF; C/W rest of current management Encouraged to fluid restriction; repeat lab work ordered If her sodium drops and can not keep up with fluid restriction-- -- may need to add oral urea or demeclocycline Further management is pending evolving data Orders: Orders Creatinine 6 Months E87.1 - Hypo-osmolality and hyponatremia Blood Urea Nitrogen 6 Months E87.1 - Hypo-osmolality and hyponatremia Electrolytes 6 Months E87.1 - Hypo-osmolality and hyponatremia Coding Level of Care Code Est Pt Level 4 (77212) Diagnoses Hyponatremia E87.1 Primary hypertension I10 Hypertension type: primary hypertension
== END 2024-01-20 15:55 | disposition home or self-care (01) ==
PROVIDERS: PCP Internal Medicine; Visit Provider Internal Medicine Nephrology
DX: E87.1 Hypo-osmolality and hyponatremia (principal); I10 Essential (primary) hypertension
CPT/HCPCS: 99214

== ENCOUNTER → 2024-01-20 15:27 | Outpatient (BNVA) | payer OTHER, MEDICAID, SELFPAY | PROVIDERS: PCP Internal Medicine; Visit Provider Internal Medicine Nephrology | DX: E87.1 Hypo-osmolality and hyponatremia (principal); I10 Essential (primary) hypertension | CPT/HCPCS: 99212 ==

== ENCOUNTER 2024-05-12 07:48 | Outpatient (REF) | payer OTHER, SELFPAY ==
[2024-05-12 09:13] LABS: Alanine Aminotransferase 28 U/L (0-31); Albumin Level 4.2 g/dL (3.5-5.0); Alkaline Phosphatase 101 U/L (39-117); Anion Gap 13 (12-20); Aspartate Amino Transferase 30 U/L (5-31); Bilirubin Direct 0.1 mg/dL (0.0-0.5); Bilirubin Total 0.3 mg/dL (0.0-1.0); Blood Urea Nitrogen 14 mg/dL (9-16); Calcium 9.7 mg/dL (8.4-10.2); Carbon Dioxide 26 mmol/L (22-29); Chloride 100 mmol/L (96-108); Cholesterol 135 mg/dL (<200); Estimated Glomerular Filt Rate > 60; Glucose Random 63 mg/dL (60-115); HDL Cholesterol 56 mg/dL (>40); LDL Cholesterol Calculated 68 mg/dL (<100); Potassium 4.4 mmol/L (3.3-5.1); Sodium 135 mmol/L (135-145); Total Protein 8.3 g/dL (6.5-8.0); Triglycerides 59 mg/dL (<150)
== END 2024-05-12 07:49 | disposition home or self-care (01) ==
LOC: HO.LAB 07:48
PROVIDERS: PCP Internal Medicine; Visit Provider Internal Medicine
DX: E11.65 Type 2 diabetes mellitus with hyperglycemia (principal); Z79.4 Long term (current) use of insulin; E78.5 Hyperlipidemia, unspecified
CPT/HCPCS: 36415; 80048; 80061; 80076

== ENCOUNTER 2024-05-14 16:37 | Outpatient (REF) | payer OTHER, SELFPAY ==
[2024-05-14 17:33] LABS: Creatinine Urine 33.29 mg/dL; Microalbum/Creatinine Ratio Ur 138.1 ug/mg cr (<30)
== END 2024-05-14 16:38 | disposition home or self-care (01) ==
LOC: HO.LNP 16:37
PROVIDERS: Visit Provider Internal Medicine
DX: E11.65 Type 2 diabetes mellitus with hyperglycemia (principal); Z79.4 Long term (current) use of insulin
CPT/HCPCS: 82043; 82570

== ENCOUNTER 2024-07-18 10:22 | Outpatient (AMB) | payer OTHER, SELFPAY ==
--- NOTE | 2024-07-18 10:34 | HO.NEPHOV ---
Vital Signs 07/18/24 10:42 Height 5 ft Weight 138 lb BMI 26.9 BP 102/60 Blood Pressure Location Lt brachial Position Sitting Pulse 90 Pulse Source Pulse Oximeter Pulse Oximetry (%) 96 Oxygen Delivery Method Room Air Intake Visit Reasons: Hyponatremia-LVM Pcb Design Engineer Required: Yes Pcb Design Engineer Language: Strategy Specialist Services: Pcb Design Engineer Offered & Declined ([facility] hand mold maker [place] refused. Pt accompanied by health outreach worker.) Pcb Design Engineer Name: Daylin Luong Accompanied by: Other Relationship Allergies duloxetine [Cymbalta] Allergy (Unknown, Verified 07/18/24 10:40) Unknown hydroxyzine Allergy (Unknown, Verified 07/18/24 10:40) unknown risperidone Allergy (Unknown, Verified 07/18/24 10:40) Unknown trazodone Allergy (Unknown, Verified 07/18/24 10:40) Unknown quetiapine [From SEROQUEL] Adverse Reaction (Severe, Verified 07/18/24 10:40) Acute Dystonic reaction HPI Comments Details: 68 year old female with Depression with anxiety, Schizoaffective disorder, PTSD (post-traumatic stress disorder), Dementia, CAD (coronary artery disease), Type 2 diabetes mellitus with mild chronic kidney disease, Chronic kidney disease, stage 3 unspecified, Type 2 diabetes mellitus with diabetic polyneuropathy, Essential hypertension, Dyslipidemia with H/O hyponatremia was seen in follow up today. She was not following any fluid restriction. Her mental status remain at baseline. She does not have any weakness or falls. She was accompanied by [facility] health outreach worker [facility] Medical History Breast calcification, left Disc degeneration, lumbar Dermatophytosis Dermatitis Joint pain Depression with anxiety Schizoaffective disorder PTSD (post-traumatic stress disorder) Dementia Smoking CAD (coronary artery disease) Type 2 diabetes mellitus with chronic kidney disease Chronic kidney disease, stage 3 unspecified Type 2 diabetes mellitus with diabetic polyneuropathy Essential hypertension Dyslipidemia Diabetes mellitus with hyperglycemia Surgical History Hx of colonoscopy Hx of cataract surgery Hx of tubal ligation Hx of section Family History Father No problems noted. Mother No problems noted. Social History Household Members: None Household Members Other:: has [facility]D Services Housing: Apartment Do you presently have visiting nurse or other home services: Yes Unable to assess alcohol history related to: Unknown Alcohol intake: former Patient Tobacco Use Status: Current everyday Tobacco user Tobacco use type: Cigarette Cigarette Packs Per Day: 1 Cigarettes Per Day: 4 Second Hand Smoke Exposure: No Advance Directives Date on File: 09/30/20 service: No Sexual orientation: Straight/Heterosexual Physical Exam Vital Signs: Last Vital Signs Pulse 90 07/18/24 10:42 BP 102/60 07/18/24 10:42 Pulse Ox 96 07/18/24 10:42 Oxygen Delivery Method Room Air 07/18/24 10:42 BMI result Body Mass Index 26.9 Const General: comfortable and no acute distress Orientation/consciousness: patient oriented x3 HEENT Head: Yes normocephalic Mouth: Normal oral and palatal mucosa present Eyes EOM: EOMs intact bilaterally Neck Neck: Yes supple Resp Auscultation: clear to auscultation bilaterally Cardio Jugular venous distension: no JVD Rate: regular rate GI Palpation (GI): Soft to palpation Auscultation: normal bowel sounds General: Yes no CVA tenderness Back/Spine/Pelvis Back: no CVA tenderness Skin General skin exam: no rashes or lesions noted Neuro General: patient oriented x3 and moves all extremities Extrem General: Yes no pedal edema Results Reviewed Nephrology Results: Sodium 135 mmol/L (135-145) 05/12/24 Potassium 4.4 mmol/L (3.3-5.1) 05/12/24 Chloride 100 mmol/L (96-108) 05/12/24 Carbon Dioxide 26 mmol/L (22-29) 05/12/24 BUN 14 mg/dL (9-16) 05/12/24 Creatinine 0.81 mg/dL (0.5-1.4) 05/12/24 Calcium 9.7 mg/dL (8.4-10.2) 05/12/24 Urine Protein Negative mg/dL (Neg-Trace) 01/07/24 Urine Creatinine 33.29 mg/dL 05/14/24 Assessment & Plan Assessment & Plan (1) Hypertension: Code(s): I10 - Essential (primary) hypertension Category: Medical Qualifiers: Hypertension type: primary hypertension Qualified Code(s): I10 - Essential (primary) hypertension Plan H/O Hyponatremia -- likely multifactorial Has excess ADH at baseline Euvolemic. Serum Na close to baseline Cortisol/TSH - OK Immunofixation normal Mentation is at baseline now Renal function/Liver function normal BP at goal. Tolerating ACEI No signs of CHF; C/W rest of current management Encouraged to fluid restriction; repeat lab work ordered If her sodium drops and can not keep up with fluid restriction-- -- may need to add oral urea or demeclocycline Further management is pending evolving data Orders: Orders Creatinine 6 Months I10 - Essential (primary) hypertension Blood Urea Nitrogen 6 Months I10 - Essential (primary) hypertension Electrolytes Today I10 - Essential (primary) hypertension Blood Urea Nitrogen Today I10 - Essential (primary) hypertension Creatinine Today I10 - Essential (primary) hypertension Electrolytes 6 Months I10 - Essential (primary) hypertension Coding Level of Care Code Est Pt Level 4 (72955) Diagnoses Primary hypertension I10 Hypertension type: primary hypertension
[2024-07-18 10:42] VITALS: BP 102/60; PULSE 90; O2SAT 96; BMI 26.9
--- OUTSIDE RECORDS SUMMARY | 2024-07-18 11:51 | XMS_ITS | Clinical Summary ---
Author Organization [employer] Address [address] [place] [address] Care Team Providers Care Sourcing Intern Name Role Phone Gilda De La Torre MD Primary Care Provide r Toya Kyle PharmD Unavailable Allergies Active Allergy Reactions Criticality Noted Date Comments Duloxetine 04/06/2019 Duloxetine Hcl 05/19/2022 Other reaction(s): Hydroxyzine, Risperidone, Trazodone Hydroxyzine 04/06/2019 Quetiapine 05/27/2023 Risperidone 04/06/2019 Trazodone 04/06/2019 Medications lidocaine (Lidoderm) 5 % patchIndications: Chronic low back pain, unspecified back pain laterality, unspecified whether sciatica present Apply 1 patch topically in the morning. Remove & discard patch within 12 hours or as directed by MD. 30 patch 1 Active Additional Information Patient not taking.Reported on 06/08/2024 ibuprofen 800 MG tabletIndications :Chronic nonintractable headache, unspecified headache type TAKE 1 TABLET BY MOUTH EVERY 8 HOURS NEEDED ONLY FOR HEADACHE 30 tablet 1 Active Additional Information Patient not taking.Reported on 06/08/2024 ARIPiprazole (Abilify) 20 MG tablet Take 1 tablet by mouth in the morning. Active busPIRone (Buspar) 10 MG tablet Take 1 tablet by mouth 3 times daily. Active docusate sodium (Colace) 100 MG capsule Take 2 capsules by mouth if needed each day for constipation. Active True Comfort Pen [place] 32G X 4 MM misc USE 4 (FOUR) TIMES DAILY Active sertraline (Zoloft) 100 MG tablet Take 1.5 tablets by mouth in the morning. 024 Active lamoTRIgine (LaMICtal) 200 MG tablet Take 1 tablet by mouth in the morning. Active Magnesium 400 MG capsule Take 1 capsule by mouth Once daily. 90 capsule 3 Active Additional Information Patient not taking.Reported on 06/08/2024 insulin lispro (HumaLOG KWIKPEN) 100 UNIT/ML injectionIndicati ons:Type 2 diabetes mellitus with hyperglycemia, with long-term current use of insulin (CMS/HCC) Inject 6 units if blood sugar 200-250, inject 8 units if blood sugar >250 twice daily with meals 1 each 3 024 Active polyvinyl alcohol (Liquifilm Tears) 1.4 % ophthalmic solution INSTILL 1 DROP IN EACH EYE 4 (FOUR) TIMES DAILY Active metFORMIN (Glucophage) 500 MG tabletIndications :Type 2 diabetes mellitus with other specified complication, with long-term current use of insulin (CMS/HCC) Take 1 tablet (500 mg) by mouth with breakfast and with evening meal. 180 tablet 2 Active Diclofenac Sodium 1 % gelIndications:Ch ronic pain of right knee Apply 1 each topically if needed in the morning and at bedtime (apply on afected are twice a day as needed). 100 g 2 Active Additional Information Patient not taking.Reported on 06/08/2024 insulin glargine (Lantus SoloStar) 100 UNIT/ML penIndications:Ty pe 2 diabetes mellitus with hyperglycemia, with long-term current use of insulin (CMS/HCC) Inject subcutaneously 26 units once daily Active Additional Information Patient not taking.Reported on 06/08/2024 Alcohol Swabs (Alcohol Pads) 70 % padsIndications:T ype 2 diabetes mellitus with hyperglycemia, with long-term current use of insulin (CMS/HCC) USE DIRECTED 3 (THREE) TIMES A DAY NEEDED 100 each 5 024 Active metoprolol tartrate (Lopressor) 25 MG tablet TAKE 1 TABLET BY MOUTH two (2) times a day. TAKE WITH FOOD 60 tablet 5 Active Aspirin Low Dose 81 MG EC tabletIndications :Primary hypertension TAKE 1 TABLET BY MOUTH ONCE DAILY 90 tablet 2 Active Additional Information Patient not taking.Reported on 06/08/20[id number] UN[facility]/GM powder APPLY TO THE AFFECTED AREA TOPICALLY two (2) times a day 30 g Active Additional Information Patient not taking.Reported on 06/08/2024 traZODone (Desyrel) 50 MG tablet take one (1) tablet by mouth at bedtime Active QUEtiapine (SEROquel) 50 MG tablet Take 1 tablet by mouth at bedtime as needed Active ammonium lactate (Lac-Hydrin) 12 % lotion Active Continuous Glucose Meal Temperer (FreeStyle Ni 3 [place]) deviceIndications :Type 2 diabetes mellitus with other specified complication, with long-term current use of insulin ([facility]) 1 each Use as directed. 1 each Active Additional Information Patient not taking.Reported on 06/08/2024 Continuous Glucose Sensor (FreeStyle Ni 3 Sensor) miscIndications:T ype 2 diabetes mellitus with other specified complication, with long-term current use of insulin ([facility]) 1 each Use as directed. 2 each Active Additional Information Patient not taking.Reported on 06/08/2024 glucose blood (FreeStyle Precision [place] Test) test stripIndications: Type 2 diabetes mellitus with other specified complication, with long-term current use of insulin ([facility]) Use as directed; check blood sugar every 8 hours 100 each 025 2025 Active Additional Information Patient not taking.Reported on 06/08/2024 Acetaminophen Extra Strength 500 MG tabletIndications :Low back pain, unspecified TAKE 2 TABLETS BY MOUTH EVERY 8 HOURS 30 tablet 2 Active lisinopril 10 MG tabletIndications :Primary hypertension TAKE 1 TABLET BY MOUTH EVERY DAY 30 tablet 2 Active mirtazapine (Remeron) 7.5 MG tablet take one (1) tablet by mouth at bedtime Active Senna-Time 8.6 MG tablet TAKE 1 TABLET BY MOUTH ONCE DAILY AT BEDTIME FOR CONSTIPATION 025 Active Dulaglutide (Trulicity) 3 MG/0.5ML solution auto-injectorIndi cations:Type 2 diabetes mellitus with hyperglycemia, with long-term current use of insulin ([facility]) Inject 3 mg under the skin 1 (one) time per week. 2 mL 3 025 Active omeprazole (PriLOSEC) [address] capsule Take 20 mg by mouth before breakfast. Do not crush or chew. Active furosemide (Lasix) 20 MG tablet TAKE 1 TABLET BY MOUTH ONCE DAILY 30 tablet 1 025 Active gabapentin (Neurontin) 100 MG capsuleIndication s:Chronic low back pain, unspecified back pain laterality, unspecified whether sciatica present TAKE 2 CAPSULES BY MOUTH ONCE DAILY 60 capsule 1 025 Active pantoprazole (ProtoNix) 40 MG EC tabletIndications :Gastroesophageal reflux disease, unspecified whether esophagitis present TAKE 1 TABLET BY MOUTH ONCE DAILY BEFORE BREAKFAST 30 tablet 5 025 Active atorvastatin (Lipitor) 80 MG tabletIndications :Primary hypertension Take 1 tablet (80 mg) by mouth at bedtime. 90 tablet 1 025 Active atorvastatin (Lipitor) 80 MG tabletIndications :Primary hypertension Take 1 tablet (80 mg) by mouth at bedtime. 90 tablet 1 024 2024 Discontinued pantoprazole (ProtoNix) 40 MG EC tabletIndications :Gastroesophageal reflux disease, unspecified whether esophagitis present TAKE 1 TABLET BY MOUTH ONCE DAILY BEFORE BREAKFAST 90 tablet 025 2024 Discontinued gabapentin (Neurontin) 100 MG capsuleIndication s:Chronic low back pain, unspecified back pain laterality, unspecified whether sciatica present TAKE 2 CAPSULES BY MOUTH ONCE DAILY 60 capsule 1 025 2024 Discontinued furosemide (Lasix) 20 MG tablet TAKE 1 TABLET BY MOUTH ONCE DAILY 30 tablet 1 025 2024 Discontinued Active Problems Problem Noted Date Diagnosed Date Primary hypertension 04/30/2024 Assessment & Plan (04/30/2024 12:21 PM EST): Today blood pressure seems to be elevated, patient is clinically asymptomatic I advised low-sodium diet and to take her medications as prescribed, she is has [facility]NA services and medications are given by nurse always, I ask for blood pressure to be log for next appointment and follow-up in 2 weeks with nurse for BP check plan is if BP is not at goal to increase lisinopril to 20 mg Anxiety 11/06/2023 Chronic kidney disease, stage 3 unspecified 09/2023 Disc degeneration, lumbar 11/06/2023 Dyslipidemia 11/06/2023 Encephalopathy 11/06/2023 Fracture of proximal end of right fibula 024 Hypochloremia 11/06/2023 Lumbar radiculopathy 11/06/2023 Confusion 11/06/2023 Breast cancer screening by mammogram 10/20/2023 Assessment & Plan (10/20/2023 2:22 PM EDT): She miss her appointment for diagnostic mammogram I ask them to re-schedule it Encounter for preventive care 09/23/2023 Assessment & Plan (09/26/2023 11:34 AM EDT): See HPI Tuberculosis screening 07/14/2023 Hypomagnesemia 07/14/2023 Assessment & Plan (07/14/2023 12:40 PM EDT): Blood work order for monitoring Left hip pain 06/27/2023 Assessment & Plan (09/26/2023 11:31 AM EDT): C/w acetaminophen PRN F/u with orthopedics Need for assistance at home and no other household member able to render care 06/03/2023 Assessment & Plan (06/03/2023 4:31 PM EDT): Lives alone, family doesn't help much Will ask for most recent home care evaluation to make sure all ADLs are covered as she lives alone and has moderate functional limitation, ambulates with walker, has memory issues and falls repeatedly.; Patient wants to preserve independence and wants to live alone Rx Life ranulfo. Fall 06/03/2023 Assessment & Plan (06/03/2023 4:34 PM EDT): It might have been related to dizziness, will fu with labs Ambulates with a walker, check DME at home to prevent falls Needs life line system to call Chronic pain of right knee 04/08/2023 Assessment & Plan (04/08/2023 4:34 PM EST): I will prescribe diclofenac gel instead of lidocaine patches C/w acetaminophen PRN F/u with orthopedics Knee pain 04/02/2023 Assessment & Plan (04/02/2023 6:28 PM EST): R knee tenderness w palpation , no obvious swelling, no erythema nor increase of skin temp.Has cracking , there is no swelling in LE Reports hx inj in same knee -referred x right knee XR today -referred to orthopedic -tylenol prn,and continue diclofenac prn -ok to take ibuprofen for mod pain -request staff to check for Lidoderm patch prescribed already by PCP -if needed PA -alarm signs and symptoms -apt w PCP scheduled for 04/08/2023 to f up Chronic cough 12/03/2022 Dizziness 12/03/2022 Weight loss 12/03/2022 Chronic nonintractable headache 09/08/2022 Assessment & Plan (09/08/2022 4:17 PM EDT): Maintain hydration Ibuprofen PRN just for headaches Chronic low back pain 05/07/2022 Internal hemorrhoids 05/07/2022 Lower gastrointestinal hemorrhage 05/07/2022 Mitral valve regurgitation 05/07/2022 Right bundle branch block 05/07/2022 Peripheral vascular disease 05/07/2022 Leukocytosis 01/20/2021 Hyponatremia 10/08/2016 Assessment & Plan (07/14/2023 12:40 PM EDT): BMP ordered for monitoring Assessment & Plan (06/03/2023 4:28 PM EDT): Improve on most recent labs on 05/30 Repeat Na and fu with PCP. Patient to go on regular diet and fu with PCP Needs to bring meds, SSRI or gabapentin can be adjusted but unclear if she dc'd them after HD. Psychogenic polydipsia 10/08/2016 Abnormal laboratory test 08/04/2015 Overview (11/06/2023): Positive T-spot test. Pt did not keep 2 scheduled appts. Letter sent to the referring source and to the pt. 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 Diabetic neuropathy 08/20/2011 Assessment & Plan (09/08/2022 4:16 PM EDT): Continue following with endocrinology for diabetes I will start her on gabapentin to help her with her neuropathy RTC 3 months Hyperlipidemia 08/20/2011 Posttraumatic stress disorder 08/20/2011 Dermatophytosis 07/28/2011 Type 2 diabetes mellitus with diabetic polyneuro jerrod 07/28/2011 Assessment & Plan (04/30/2024 12:20 PM EST): Diabetes is: not controlled but improved - Lab Results Component Value Date HGBA1C 8.7 (A) 03/09/2024 HGBA1C 8.8 (A) 12/28/2023 HGBA1C 10.0 (A) 10/20/2023 - Lab Results Component Value Date MICROALBUR 52.0 04/01/2023 CREATININE 0.75 07/22/2023 CREATININE 0.76 07/22/2023 -Changes: continue with same interventions, f/u with CD[facility] - Diabetic eye exam:up to date - Diabetic foot exam:followed by Dr Farnsworth reports its up to date - Continue lifestyle modifications - Continue current medications - Follow up: 3 months Assessment & Plan (10/20/2023 2:21 PM EDT): Diabetes is: not controlled - Lab Results Component Value Date HGBA1C 10.0 (A) 10/20/2023 HGBA1C 8.3 (A) 07/14/2023 HGBA1C 8.4 (A) 04/08/2023 - Lab Results Component Value Date MICROALBUR 52.0 04/01/2023 CREATININE 0.75 07/22/2023 CREATININE 0.76 07/22/2023 -Changes: I started patient on trulicity 0.75mg weekly I will refer her to [facility] [place] - Diabetic eye exam:up to date - Diabetic foot exam:pending - Continue lifestyle modifications - Continue current medications - Follow up: 3 months Assessment & Plan (09/26/2023 11:33 AM EDT): Diabetes is: not controlled - Lab Results Component Value Date HGBA1C 8.3 (A) 07/14/2023 HGBA1C 8.4 (A) 04/08/2023 HGBA1C 8.4 (A) 12/03/2022 - Lab Results Component Value Date MICROALBUR 52.0 04/01/2023 CREATININE 0.75 07/22/2023 CREATININE 0.76 07/22/2023 -Changes: I put her on insulin scale as per HDF, insulin can only be administer BID by VNA c/w metformin f/u with endocrinology - Diabetic eye exam:up to date - Diabetic foot exam:pending - Continue lifestyle modifications - Continue current medications - Follow up: 3 months Assessment & Plan (07/14/2023 12:39 PM EDT): Diabetes is: not controlled - Lab Results Component Value Date HGBA1C 8.4 (A) 04/08/2023 HGBA1C 8.4 (A) 12/03/2022 HGBA1C 9.3 (A) 05/20/2022 - Lab Results Component Value Date MICROALBUR 52.0 04/01/2023 CREATININE 0.68 06/03/2023 -Changes: none - Diabetic eye exam:up to date - Diabetic foot exam:up to date - Continue lifestyle modifications - Continue current medications - follow up with endocrinology Assessment & Plan (04/08/2023 4:35 PM EST): Lab Results Component Value Date HGBA1C 8.4 (A) 04/08/2023 HGBA1C 8.4 (A) 12/03/2022 HGBA1C 9.3 (A) 05/20/2022 - Lab Results Component Value Date MICROALBUR 52.0 04/01/2023 CREATININE 0.81 04/01/2023 - Diabetic eye exam:pending - Diabetic foot exam:peding - Continue lifestyle modifications - Continue with current insulin regime I added today trulicity 0.75mg weekly Assessment & Plan (12/03/2022 3:11 PM EDT): - Lab Results Component Value Date HGBA1C 9.3 (A) 05/20/2022 HGBA1C 9.4 (H) 12/22/2020 HGBA1C 9.7 (H) 09/28/2019 HGBA1C 9.7 (H) 09/28/2019 HGBA1C 9.7 (H) 09/28/2019 - Lab Results Component Value Date MICROALBUR 1.4 10/21/2021 MICROALBUR 1.4 10/21/2021 CREATININE 0.89 11/07/2021 Continue to follow with endocrinology - Continue lifestyle modifications - Continue current medications Assessment & Plan (05/20/2022 11:26 AM EDT): - Lab Results Component Value Date HGBA1C 9.4 (H) 12/22/2020 HGBA1C 9.7 (H) 09/28/2019 HGBA1C 9.7 (H) 09/28/2019 HGBA1C 9.7 (H) 09/28/2019 - Lab Results Component Value Date CREATININE 0.89 11/07/2021 - Diabetic eye exam: records to be obtiane - Diabetic foot exam: will be done on next appointment - Continue lifestyle modifications - Continue current medications, patient has uncontrolled DM but has upcoming endocrinology appointment next month, I will let them manage her diabetes medication, extensive counseling about diet done today - Resolved Problems Problem Noted Date Diagnosed Date Resolved Date Schizoaffective disorder 05/20/202204/2024 Hypertension 07/28/2011 04/02/2024 Assessment & Plan (10/20/2023 2:21 PM EDT): Blood pressure under control I advise - Aerobic exercise to reduce BP. Initial goal of 30 min walk 3-5x/week. Increase as tolerated. - low-sodium diet (goal: <2g/day) and heart healthy diet such as DASH to reduce BP and prevent ASCVD. - Home BP monitoring 1-2 x day with goal of <140/90. - Seek immediate medical attention for chest pain, palpitations, SOB, syncope, or sudden changes in mental status. - Do not change or discontinue current prescriptions without first consulting health care provider Assessment & Plan (07/14/2023 12:40 PM EDT): - Aerobic exercise to reduce BP. Initial goal of 30 min walk 3-5x/week. Increase as tolerated. - low-sodium diet (goal: <2g/day) and heart healthy diet such as DASH to reduce BP and prevent ASCVD. - Home BP monitoring 1-2 x day with goal of <140/90. - Seek immediate medical attention for chest pain, palpitations, SOB, syncope, or sudden changes in mental status. - Do not change or discontinue current prescriptions without first consulting health care provider Assessment & Plan (04/08/2023 4:33 PM EST): - Aerobic exercise to reduce BP. Initial goal of 30 min walk 3-5x/week. Increase as tolerated. - low-sodium diet (goal: <2g/day) and heart healthy diet such as DASH to reduce BP and prevent ASCVD. - Home BP monitoring 1-2 x day with goal of <140/90. - Seek immediate medical attention for chest pain, palpitations, SOB, syncope, or sudden changes in mental status. - Do not change or discontinue current prescriptions without first consulting health care provider Assessment & Plan (12/03/2022 3:10 PM EDT): - Aerobic exercise to reduce BP. Initial goal of 30 min walk 3-5x/week. Increase as tolerated. - low-sodium diet (goal: <2g/day) and heart healthy diet such as DASH to reduce BP and prevent ASCVD. - Home BP monitoring 1-2 x day with goal of <140/90. - Seek immediate medical attention for chest pain, palpitations, SOB, syncope, or sudden changes in mental status. - Do not change or discontinue current prescriptions without first consulting health care provider Assessment & Plan (09/08/2022 4:17 PM EDT): - Aerobic exercise to reduce BP. Initial goal of 30 min walk 3-5x/week. Increase as tolerated. - low-sodium diet (goal: <2g/day) and heart healthy diet such as DASH to reduce BP and prevent ASCVD. - Home BP monitoring 1-2 x day with goal of <140/90. - Seek immediate medical attention for chest pain, palpitations, SOB, syncope, or sudden changes in mental status. - Do not change or discontinue current prescriptions without first consulting health care provider Assessment & Plan (05/20/2022 11:25 AM EDT): Maintenance: BMP: ordered today Lipid Panel: ordered today ASCVD Risk: Calculate pending updated labs EKG: done by cardiology - Aerobic exercise to reduce BP. Initial goal of 30 min walk 3-5x/week. Increase as tolerated. - low-sodium diet (goal: <2g/day) and heart healthy diet such as DASH to reduce BP and prevent ASCVD. - Home BP monitoring 1-2 x day with goal of <140/90. - Seek immediate medical attention for chest pain, palpitations, SOB, syncope, or sudden changes in mental status. - Do not change or discontinue current prescriptions without first consulting health care provider -Patient reports BP at home taken by nurse was normal, today high likely because of anxiety related to her visit today, I will c/w same medication if BOP is high at home I ask her and caregiver to contact me or the office back for further medication adjustment BP 155/68 (BP Location: Left arm, Patient Position: Sitting, BP Cuff Size: Adult) Pulse 68 Temp 97.8 ??F (36.6 ??C) (Oral) Resp 20 Wt 139 lb 3.2 oz (63.1 kg) SpO2 95% BMI 27.19 kg/m?? Encounters Date Type Department Care Team Description 07/11/2024 2:30 PM EDT Office Visit [facility] [address] [place] [address] Parra-Garcia, Chitra, DDS Edentulism (Primary Dx) 07/11/2024 Refill [facility] [address] [facility] [place] [address] Gilda De La Torre MD Primary hypertension 07/06/2024 Refill [facility] [address] [place] [address] Gilda De La Torre MD Gastroesophageal reflux disease, unspecified whether esophagitis present 06/29/2024 Refill [facility] [address] [place] [address] Gilda De La Torre MD Chronic low back pain, unspecified back pain laterality, unspecified whether sciatica present 06/26/2024 Telephone [facility] [address] [place] [address] Gilda De La Torre MD Care Coordination 06/20/2024 2:00 PM EDT Office Visit [facility] [address] [place] [address] Parra-Garcia, Chitra, DDS Edentulism (Primary Dx) 06/11/2024 Travel 06/08/2024 2:30 PM EDT Office Visit [facility] [address] [place] [address] Parra-Garcia, Chitra, DDS Edentulism (Primary Dx) 06/04/2024 Telephone [facility] [address] [place] [address] Gilda De La Torre MD 05/30/2024 11:00 AM EDT Office Visit [facility] [address] [place] [address] Parra-Garcia, Chitra, DDS Edentulism (Primary Dx) 05/29/2024 Telephone [facility] [address] [place] [address] Gilda De La Torre MD 05/18/2024 Telephone [facility] [address] [place] [address] Gilda De La Torre MD FYI 05/14/2024 Orders Only [facility] [address] [place] [address] Gilda De La Torre MD 05/12/2024 Orders Only [facility] [address] [place] [address] Gilda De La Torre MD 05/07/2024 Telephone [facility] [address] [place] [phone] Toya Kyle, PharmD 05/07/2024 Travel 05/04/2024 Refill [facility] [address] [place] [phone] Gilda De La Torre MD Low back pain, unspecified; Primary hypertension 04/30/2024 11:30 AM EST Office Visit [facility] [address] [place] [address], [place] [address] Gilda De La Torre MD Type 2 diabetes mellitus with diabetic polyneuropathy, with long-term current use of insulin ([facility]) (Primary Dx); Type 2 diabetes mellitus with hyperglycemia, with long-term current use of insulin ([facility]); Primary hypertension 04/30/2024 Travel 04/27/2024 Telephone [facility] [address] [place] [phone] Gilda De La Torre MD Chart Prep 04/27/2024 Telephone [facility] [address] [place] [address] [phone] Shayne Stonemia, DDS 04/21/2024 Refill [facility] [address] [place] [phone] Gilda De La Torre MD Chronic low back pain, unspecified back pain laterality, unspecified whether sciatica present from Last 3 Months Immunizations Immunization Administration Dates Next Due Hep B, adult 01/27/2021,01/31/2019,09/15/2015 Influenza High-dose Quadriva lent Preservative Free 12/03/2022,12/08/2021 Influenza injectable quadriv alent IIV4 with preservative 12/14/2017,02/03/2017,12/15/2015,05/13 Influenza injectable quadriv alent preservative free 12/22/2020,01/31/2019,04/21/2018,12/14 Influenza, IIV3, injectable 11/22/2013,0 11/23/2010,11/01/2008,12/19,01/13/2005,12/24/2002,01/07/2000 Influenza, seasonal, injecta ble, preservative free 03/28/2024 Moderna Covid-19 Vaccine 12+ 06/03/2020,05/07/19 21 Pfizer Covid-19 Vaccine 12+ 12/22/2020 Pfizer Covid-19 Vaccine 12+ Bivalent 03/10/2022 Pneumococcal Conjugate PCV 20 10/21/2021 Pneumococcal Polysaccharide PPSV23 12/08/2015,,11/26/1999 RSV Bivalent 05/07/2024 TD (adult), 2 Lf tetanus tox oid, preservative free, adsorbed 12/29/2006,11/26/1999 Tdap 02/03/2017 Zoster, Recombinant 12/25/2021,10/21/2021 Zoster, live 02/03/2017 Social History Tobacco Use Types Packs/Day Years Used Date Smoking Tobacco: Every Day Cigarettes Passive Smoke Exposure: Current Smokeless Tobacco: Never Tobacco Cessation:Ready to Q uit: Not Asked; Counseling Given: Not Answered Alcohol Use Standard Drinks/Week Comments Never 0 (1 standard drink = 0.6 oz pur e alcohol) Alcohol Answer Date Recorded Frequency of Alcohol Consumption Not on file 09/23/2023 Average Number of Drinks Not on file 024 Frequency of Binge Drinking Not on file 08/29 Score 0 09/23/2023 Depression Answer Date Recorded Patient Health Questionnaire-9 Score 0 09/23/2023 Patient Health Questionnaire-9 Score 0 09/23/2023 Last PHQ-9: Questionnaire Data Not on file 0 09/23/2023 Housing Stability Answer Date Recorded What is your housing situation today? I have giles collado 06/10/[address] you li ve. Do you have problems with any of the following? None of the above 06/10/2023 Food Insecurity Answer Date Recorded Within the past 12 months, y ou worried that your food would run out before you got money to buy more: Never True 12/15/2022 Within the past 12 months,th e food you bought just didn't last and you didn't have enough money to get more: Never True Transportation Answer Date Recorded In the past 12 months, has l ack of transportation kept you from medical appts, meetings, work or from getting things needed for daily living? No 12/15/2022 Utilities Answer Date Recorded In the past 12 months, has t he electric, gas, oil or water company threatened to shut off services in your home? No 12/15/2022 Depression Answer Date Recorded Patient Health Questionnaire-2 Score 0 09/23/2023 Internet Access Answer Date Recorded Internet Access Q1 No 10/31/2023 Internet Access Q2 I do not want or need it 03/2023 Comments No Sex and Gender Information Value Date Recorded Sex Assigned at Female 12/28/2021 10:14 AM EDT Legal Sex Female 10:14 AM EDT Gender Identity Female 12/28/2021 10:14 AM EDT Sexual Orientation Straight 12/28/2021 10 :14 AM EDT Last Filed Vital Signs Vital Sign Reading Time Taken Comments Blood Pressure 110/52 06/11/2024 2:15 PM EDT Pulse 64 06/11/2024 2:15 PM EDT Temperature 36.5 ??C (97.7 ??F) 04/30/2024 11:[address] Respiratory Rate 18 04/30/2024 11:36 AM EST Oxygen Saturation 98% 04/30/2024 11:36 AM EST Inhaled Oxygen Concentration - - Weight 64.1 kg (141 lb 6.4 oz) 04/30/2024 11:36 AM EST Height 152.4 cm (5') 04/30/2024 11:36 AM EST Body Mass Index 27.62 04/30/2024 11:36 AM EST Plan of Treatment Upcoming Encounters Date Type Department Care Team (Late st Contact Info) Description 07/20/2024 2:00 PM EDT Office Visit [facility] ADULT DENTAL [address] [place] [address] Chitra Stone DDS [address] [place] [address] 08/06/2024 11:30 AM EDT Office Visit [facility] MEDICINE [address] [place] [address] Gilda De La Torre MD [address] [place] [address] 08/22/2024 2:00 PM EDT Medication Management [facility] [address] [place] [address] Toya Kyle, PharmD [address] [place] [address] Health Maintenance Due Date Last Done Comments CT Colonography 1955 Dental Prophylaxis 1955 Dental X-Ray: Bitewings 1955 FIT DNA/Cologuard 1955 FIT 1955 FOBT 1955 Sigmoidoscopy 1955 Diabetes: Foot Exam 01/16/1966 Hepatitis C Screening 01/16/1974 COVID-19 Vaccine ( season) 2023 03/10/2022, 12/22/2020, 06/03/2020, Additional history exists Diabetes: Hemoglobin A1C 09/10/20242 025, 03/09/2024, 12/28/2023, Additional history exists Diagnostic Breast Imaging 09/12/20242024, 01/09/2024, 03/11/2023, Additional history exists Mammogram 09/12/2024 03/15/2024, 12/29, 03/11/2023, Additional history exists Alcohol/Substance Use Screening 09/22/2024 09/23/2023 Depression Screening 09/22/2024 09/23/2023, 09/23/19 24 SDOH Screening 09/22/2024 09/23/2023 Dental Oral Exam 10/01/2024 04/02/2024, 12/23/2022 Lipid Panel 05/12/2025 05/12/2024, 12/29, 02/06/2021, Additional history exists Diabetes: Urine Protein Screening 05/14/2025 05/14/2024, 04/01/2023, 01/07/2023, Additional history exists Tobacco Screening 07/11/2025 07/11/2024 Eye Exam 07/14/2025 07/15/2023, 06/28, 07/15/2023, Additional history exists DTaP/Tdap/Td Vaccines (2 - Td or Tdap) 02/03/2027 02/03/2017, 12/29/2006, 11/26/1999 Dental X-Ray: Full Mouth 04/03/2027 04/02/2024, 11/29 Colonoscopy 05/22/2031 Colorectal Cancer Screening 05/22/2031 Hepatitis B Vaccines Completed 01/27/2021, 01/31/2019, 09/15/2015 Pneumococcal Vaccine: 50+ Years Completed 10/21/2021, 12/08/2015, 07/09/2007, Additional history exists Zoster Vaccines Completed 12/25/2021, 09/29, 02/03/2017 Influenza Vaccine Completed 03/28/2024, , 12/08/2021, Additional history exists RSV Patients and Patients Aged 60 years or older Completed 05/07/2024 HIB Vaccines Aged Out No longer eligi ble based on patient's age to complete this topic HPV Vaccines Aged Out No longer eligi ble based on patient's age to complete this topic Hepatitis A Vaccines Aged Out No long er eligible based on patient's age to complete this topic IPV Vaccines Aged Out No longer eligi ble based on patient's age to complete this topic Meningococcal B Vaccine Aged Out No l onger eligible based on patient's age to complete this topic Meningococcal Vaccine Aged Out No jag robert eligible based on patient's age to complete this topic RSV under 20 months Aged Out No longe r eligible based on patient's age to complete this topic Rotavirus Vaccines Aged Out No longer eligible based on patient's age to complete this topic Procedures Procedure Name Priority Date/Time Associated Diagnosis Comments WAX TRY IN Routine 07/11/2024 2:30 PM EDT Edentulism BITE REGISTRATION Routine 06/20/2024 2:0 0 PM EDT Edentulism POCT GLYCATED HEMOGLOBIN, TOTAL Routine 06/11/2024 2:00 PM EDT Type 2 diabetes mellitus with hyperglycemia, with long-term current use of insulin ([facility]) DENTURE IMPRESSION Routine 06/08/2024 2: 30 PM EDT Edentulism DENTURE IMPRESSION Routine 05/30/2024 11 :00 AM EDT Edentulism ALBUMIN, RANDOM URINE W/CREATININE Routine 05/14/2024 3:16 PM EDT BASIC METABOLIC PANEL Routine 05/12/2024 8:02 AM EDT HEPATIC FUNCTION PANEL Routine 05/12/2024 8:02 AM EDT LIPID PANEL, STANDARD Routine 05/12/2024 8:02 AM EDT Dyslipidemia POCT GLUCOSE Routine 04/30/2024 11:37 AM EST Type 2 diabetes mellitus with hyperglycemia, with long-term current use of insulin ([facility]) PANORAMIC RADIOGRAPHIC IMAGE Routine 04/02/2024 3:00 PM EST PERIODIC ORAL EVALUATION - ESTABLISHED PATIENT Routine 04/02/2024 3:00 PM EST HM MAMMOGRAPHY Routine 03/15/2024 2:11 PM EST from Last 3 Months or Most Recently Relevant to Health Maintenance Results * (ABNORMAL) POCT A1C (06/11/2024 2:00 PM EDT) Pathologist [facility] Hemoglobin A1C 7.9(A) 4.0 - 6.0 % QC Media Lot # [id number] Lot# Expiration Date Blood 06/11/2024 2:00 PM EDT us Gilda Maynard MD POINT OF CARE TEST EN TER/EDIT ORDERABLES Final Result * (ABNORMAL) Albumin, Random Urine W/Creatinine (05/14/2024 3:16 PM EDT) Creatinine, Urine 33.29 mg/dL [facility] Microalbumin Urine 46.0 mg/L H [facility] Microalbum Creatinine Ratio Ur 138.1(H) <30 ug/mg cr [facility] Comment:Albumin/Creatinine R atio Reference Ranges: Normal: < 30 ug/mg creatinine Microalbuminuria: 30 - 300 ug/mg creatinineClinical Albuminuria: > 300 ug/mg creatinine 05/14/2024 3:16 PM EDT 05/14/2024 4:40 PM EDT Gilda Maynard MD LAB URINE ORDERABLES Final Result Performing Organization Address [facility] Co de Phone Number [facility] [address] [place] [address] [phone] * (ABNORMAL) Hepatic Function Panel (05/12/2024 8:02 AM EDT) Bilirubin, Total 0.3 0.0 - 1.0 mg/dL [facility] Bilirubin, Direct 0.1 0.0 - 0.5 mg/dL [facility] Aspartate Amino Transferase 30 5 - 31 U/L [facility] Alanine Aminotransferase 28 0 - 31 U/L [facility] Total Protein 8.3(H) 6.5 - 8.0 g/dL [facility] Albumin Level 4.2 3.5 - 5.0 g/dL [facility] Alkaline Phosphatase 101 39 - 117 U/L [facility] 05/12/2024 8:02 AM EDT 05/12/2024 8:02 AM EDT us Gilda Maynard MD LAB BLOOD ORDERABLES Final Result Performing Organization Address [facility] Co de Phone Number [facility] [address] [place] [phone] * Lipid Panel, Standard (05/12/2024 8:02 AM EDT) Triglycerides 59 <150 mg/dL [facility] Comment:Desirable Triglyceri de: less than 150 mg/dLBorderline High Triglyceride 150-199 mg/dLHigh Triglyceride: 200-499 mg/dLVery High Triglyceride: greater than or equal to 5OO mg/dL Cholesterol 135 <200 mg/dL [facility] Comment:Desirable Cholestero l: less than 200 mg/dLBorderline High Cholesterol: 200-239 mg/dLHigh Cholesterol: greater than 239 mg/dL LDL Cholesterol Calculated 68 <100 mg/dL [facility] Comment:Desirable LDL: less than 100 mg/dLNear Optimal/Above Optimal LDL: 110- 129 mg/dLBorderline High LDL: 130-159 mg/dLHigh LDL: 160-189 mg/dLVery High LDL: greater than or equal to 190 mg/dL HDL Cholesterol 56 >40 mg/dL [facility] Comment:Desirable HDL: great er than 40 mg/dL Note: This HDL assay may give artificially low results in patients with liver disease. Blood Venous blood specimen / Unknown 05/12/2024 8:02 AM EDT 05/12/2024 8:02 AM EDT Gilda Maynard MD LAB BLOOD ORDERABLES Final Result [facility] [address] [place] [address] [phone] * Basic Metabolic Panel (05/12/2024 8:02 AM EDT) Sodium 135 135 - 145 mmol/L [facility] Potassium 4.4 3.3 - 5.1 mmol/L [facility] Chloride 100 96 - 108 mmol/L [facility] Carbon Dioxide 26 22 - 29 mmol/L [facility] Anion Gap 13 12 - 20 [facility] Urea Nitrogen (BUN) 14 9 - 16 mg/dL [facility] Creatinine, Serum 0.81 0.5 - 1.4 mg/dL [facility] Estimated Glomerular Filt Rate >60 [facility] Comment:Chronic Kidney Disea se: Estimated GFR < 60 mL/min/[id number] Kidney Disease: Estimated GFR < 15 mL/min/1.73m2 Glucose 63 60 - 115 mg/dL [facility] Calcium 9.7 8.4 - 10.2 mg/dL [facility] 05/12/2024 8:02 AM EDT 05/12/2024 8:02 AM EDT us Gilda Maynard MD LAB BLOOD ORDERABLES Final Result [facility] [address] [place] [address] [phone] * POCT Glucose (04/30/2024 11:37 AM EST) Glucose Blood, POC 68 60 - 200 mg/dL Comment:random QC Media Lot # [id number] Lot# Expiration Date [id number] Blood Capillary blood specimen / Unknown 04/30/2024 11:37 AM EST Gilda Maynard MD POINT OF CARE TEST EN TER/EDIT ORDERABLES Final Result * Hm Mammography (03/15/2024 2:11 PM EST) Anatomical Region Laterality Modality Other Historical Provider HEALTH MAINTENANCE Final Result from Last 3 Months or Most Recently Relevant to Health Maintenance Insurance [facility] [employer] (O D-SNP) [facility] [employer] (O D-SNP) * Guarantor: Guerline Celeste Account Type Relation to Patient Date of Phone Billing Address Dental Self [address] [place] [address] DENTAL [facility] * Guarantor: Guerline Celeste Account Type Relation to Patient Date of Phone Billing Address Personal/Family Self [address] [place] [address] * Guarantor: Guerline Celeste Account Type Relation to Patient Date of Phone Billing Address Personal/Family Self [address] [place] [address] * Guarantor: Celeste Cunha Account Type Relation to Patient Date of Phone Billing Address Personal/Family Self [address] [place] [address] Care Teams Sourcing Intern Relationship Specialty Start Date End Date Gilda De La Torre MD [address] [place] [address] PCP - General Family Medicine 10/25/21 Toya Kyle, RosaD [address] [place] [address] Pharmacist Internal Medicine 11/06/23
--- OUTSIDE RECORDS SUMMARY | 2024-07-18 11:51 | XMS_ITS | Encounter Summary ---
Author Organization [employer] Address [address] [facility] [address] [place] [address] Care Team Providers Care Airline Flight Attendant Name Role Phone Gilda De La Torre MD Primary Care Provide r Toya Kyle PharmD Unavailable [phone] Reason for Visit * Reason Comments Med Refill Encounter Details Date Type Department Care Team (Late Contact Info) Description 10/08/2022 Refill [facility] MED[facility] [address] [place] [address] Gilda De La Torre MD [address] [place] [address] Social History Tobacco Use Types Packs/Day Years Used Date Smoking Tobacco: Every Day Cigarettes Passive Smoke Exposure: Current Smokeless Tobacco: Never Depression Answer Date Recorded Patient Health Questionnaire-9 Score 14 05/20/2022 Depression Answer Date Recorded Patient Health Questionnaire-2 Score 2 05/20/2022 Comments No Sex and Gender Information Value Date Recorded Sex Assigned at Female 12/28/2021 10:14 AM EDT Legal Sex Female 10:14 AM EDT Gender Identity Female 12/28/2021 10:14 AM EDT Sexual Orientation Straight 12/28/2021 10 :14 AM EDT documented as of this encounter Plan of Treatment Upcoming Encounters Date Type Department Care Team (Late Contact Info) Description 07/20/2024 2:00 PM EDT Office Visit [facility] ADULT DENTAL [address] [place] [address] Chitra Stone DDS [address] [place] [phone] 08/06/2024 11:30 AM EDT Office Visit [facility] MEDICINE [address] [place] [phone] Gilda De La Torre MD [address] [place] [address] [phone] 08/22/2024 2:00 PM EDT Medication Management [facility] [address] [place] [phone] Toya Kyle, PharmElliott [address] [place] [phone] documented as of this encounter Visit Diagnoses Not on filedocumented in this encounter Additional Health Concerns Assessment Noted Time PHQ-9 Depression Total Score: 14 023 10:32 AM EDT documented as of this encounter Care Teams Airline Flight Attendant Relationship Specialty Start Date End Date Gilda De La Torre MD [address] [place] [address] [phone] PCP - General Family Medicine 10/25/21 Toya Kyle PharmD [address] [place] [address] [phone] Pharmacist Internal Medicine 11/06/23 documented as of this encounter
--- OUTSIDE RECORDS SUMMARY | 2024-07-18 11:51 | XMS_ITS | Clinical Summary ---
Author Organization [facility] Address [address] [place] [address] Phone Care Team Providers Care Photo Booth Operator Name Role Phone Jodi Toussaint RN Primary Care Provider [phone] Allergies No known active allergies Medical History Medical History Date Comments Dermatophytosis 08/05/2021 DX:Dermatophytos is Back pain 08/05/2021 DX:Back pain Schizoaffective disorder (CM S/HCC V24, CMS/HCC V28) 08/05/2021 DX:Schizoaffective disorder (HCC) Hyperlipidemia 08/05/2021 DX:Hyperlipidemi a Elevated TSH 08/05/2021 DX:Elevated TSH Diabetes mellitus (CMS/HCC V 24, [facility] V28) 08/05/2021 DX:Diabetes mellitus (HCC) PTSD (post-traumatic stress disorder) 08/05/2021 DX:PTSD (post-traumatic stress disorder) Frontal lobe dementia (CMS/H CC V24, [facility]/HCC V28) 08/05/2021 DX:Frontal lobe dementia (HC C) Diabetic neuropathy (CMS/HCC V24, CMS/HCC V28) 08/05/2021 DX:Diabetic neuropathy (HCC) Hypertension 08/05/2021 DX:Hypertension Poor vision 08/05/2021 DX:Poor vision Hyponatremia 08/05/2021 DX:Hyponatremia 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 Leukocytosis 08/05/2021 DX:Leukocytosis Social History Tobacco Use Types Packs/Day Years Used Date Smoking Tobacco: Every Day Smokeless Tobacco: Never Alcohol Use Standard Drinks/Week Comments Never 0 (1 standard drink = 0.6 oz pur e alcohol) Comments Unknown Sex and Gender Information Value Date Recorded Sex Assigned at Not on file Legal Sex Female 2:27 AM EST Gender Identity Not on file Sexual Orientation Not on file Obstetrics History Last Filed Vital Signs Vital Sign Reading Time Taken Comments Blood Pressure - - Pulse - - Temperature - - Respiratory Rate - - Oxygen Saturation - - Inhaled Oxygen Concentration - - Weight 68 kg (150 lb) 11/30/2022 12:50 PM EDT Height 152.4 cm (5') 11/30/2022 12:50 PM EDT Body Mass Index 29.3 11/30/2022 12:50 PM EDT Plan of Treatment Upcoming Encounters Date Type Department Care Team (Late st Contact Info) Description 09/03/2024 2:15 PM EDT Office Visit Orthopedic Surgery - [place] [address] [phone] Marcel Alatorre, [place] [address] [address] Health Maintenance Due Date Last Done Comments Diabetes: Annual GFR (Glomerular Filtration Rate) 1955 Diabetes: Annual Foot Exam 01/16/1966 Diabetes: Annual Retina Eye Exam 01/16/1966 RSV Immunization Adult Patients (1 - Risk 60-74 years 1-dose series) 2016 Colorectal Cancer Screening: Colonoscopy 02/07/2022 Diabetes: Annual Urine Albumin-Creatinine Ratio (uACR) 02/07/2022 Falls Risk Assessment 02/07/2022 Hepatitis C Screening 02/07/2022 Medicare Annual Wellness Visit 02/07/2022 Osteoporosis Screening (Bone Density Screening) 02/07/2022 Social Influencers of Health Screening 02/07/2022 Hypertension/CHF/CAD Annual BMP Blood Test 02/13/2022 COVID-19 Vaccine ( season) 2023 03/10/2022, 12/22/2020, 06/03/2020, Additional history exists Diabetes: Blood Sugar Control Test (HGBA1C) 09/06/2024 03/09/2024, 12/28/2023 Depression Screening 09/22/2024 09/23/2023 Influenza Vaccine (Season Ended) 2024 12/03/2022, 12/08/2021, 12/22/2020, Additional history exists Breast Cancer Screening 03/15/2026 03/15/2024 DTaP,Tdap,and Td Vaccines (4 - Td or Tdap) 02/03/2027 02/03/2017, 12/29/2006, 11/26/1999 Cholesterol Screening (Lipid Panel) 01/08/2028 01/07/2023 Hepatitis B Vaccines Completed 01/27/2021, 01/31/2019, 09/15/2015 Pneumococcal Vaccine: 50+ Years Completed 10/21/2021, 12/08/2015, 07/09/2007, Additional history exists Zoster Vaccines Completed 12/25/2021, 09/29, 02/03/2017 HIB Vaccines Aged Out No longer eligi [...] on patient's age to complete this topic MMR Vaccines Aged Out No longer eligi ble based on patient's age to complete this topic Meningococcal ACWY Vaccine Aged Out N o longer eligible based on patient's age to complete this topic Meningococcal B Vaccine Aged Out No l onger eligible based on patient's age to complete this topic RSV Immunization Patients Under 20 months Aged Out No longer eligible based on patient's age to complete this topic Varicella Vaccines Aged Out No longer eligible based on patient's age to complete this topic Procedures Procedure Name Priority Date/Time Associated Diagnosis Comments MG MAMMO DIGITAL DIAGNOSTIC POST CLIP LEFT Routine 03/15/2024 11:26 AM EST Mammographic calcification found on diagnostic imaging of breast from Last 3 Months or Most Recently Relevant to Health Maintenance Results * MG Mammo Digital Diagnostic Clip Post MG Guide Left (Statistics) (03/15/2024 11:26 AM EST) Anatomical Region Laterality Modality Breast Left Mammography 03/15/2024 12:0 8 PM EST Addenda Addendum by Samy Martinez MD on 03/20/2024 2:29 PM EST Addendum generated to document communication of the results The pathology results were communicated to Dalyin the healthcare social worker assisting in the care of Ms. Cunha I notified the healthcare social worker of the benign results and the recommendation for mammography in one year at approximately 1430 hours on 03/20/2024 -------- ADDENDUM -------- Dictated By: Samy Martinez Dictated Date: 03/20/2024 14:28 ET Assigned Physician: Samy Martinez Reviewed and Electronically Signed By: Samy Martinez Signed Date: 03/20/2024 14:29 ET Workstation ID: [id number] Transcribed By: Self Edit Transcribed Date: 03/20/2024 14:28 ET Addendum by Samy Martinez MD on 03/16/2024 12:59 PM EST Addendum: The final pathology results from the procedure are now available; DATE: ??03/15/2024 LOCATION: ??SITE #1 - LEFT, CALCIFICATIONS, 3 cm from nipple STEREOTACTICALLY GUIDED FINAL PATHOLOGY RESULT: ?? ?Left breast, upper inner, 3 cm from nipple, site #1, calcifications, stereotactic core biopsy: Benign breast tissue with calcifications within fibroadenomatoid stroma No atypia or malignancy identified ? B. Left breast, upper inner, 3 cm from nipple, site #1, associated tissue, stereotactic core biopsy: Benign breast tissue No atypia or malignancy identified CONCORDANCE: ??The final pathology results and imaging findings are concordant LOCATION: ??SITE #2 - LEFT, CALCIFICATIONS, 5 cm from nipple STEREOTACTICALLY GUIDED FINAL PATHOLOGY RESULT: ?? Left breast, upper inner, 5 cm from nipple, site #2, calcifications, stereotactic core biopsy: Benign breast tissue with calcifications within fibroadenomatoid stroma No atypia or malignancy identified ? D. Left breast, upper inner, 5 cm from nipple, site #2, associated tissue, stereotactic core biopsy: Benign breast tissue No atypia or malignancy identified CONCORDANCE: ??The final pathology results and imaging findings are concordant ASSESSMENT: ?? BI-RADS 2: BENIGN RECOMMENDATION(S): 1: Routine screening mammogram BILATERAL in 1 year. COMMUNICATION: ??Departmental staff will notify the patient Addendum: ?? BREAST DENSITY: C - The breasts are heterogeneously dense which may obscure small masses. BI-RADS CATEGORY: 2 - BENIGN RECOMMENDATION: Screening bilateral mammogram is recommended in 1 year. -------- ADDENDUM -------- Dictated By: Samy Martinez Dictated Date: 03/16/2024 12:55 ET Assigned Physician: Samy Martinez Reviewed and Electronically Signed By: Samy Martinez Signed Date: 03/16/2024 12:59 ET Workstation ID: [id number] Transcribed By: Self Edit Transcribed Date: 03/16/2024 12:55 ET Impressions 03/15/2024 12:21 PM EST STEREOTACTIC MAMMOGRAPHY was used to localize and guide left breast biopsy. ??2 separate procedures were performed. ??2 specimens were submitted. STEREOTACTIC MAMMOGRAPHY was used to guide placement of a biopsy site marker. ??However, neither biopsy site marker remains in the patient after the procedure. ??There are residual calcifications at each site. ??This was explained to the patient through the sign language interpreter. There was no evidence of immediate complication. Postprocedure mammography was performed. An addendum will be generated when the pathology results become available RECOMMENDATION: Pathology pending for the left breast. -------- FINAL REPORT -------- Dictated By: Samy Martinez Dictated Date: 03/15/2024 12:08 ET Assigned Physician: Samy Martinez Reviewed and Electronically Signed By: Samy Martinez Signed Date: 03/15/2024 12:21 ET Workstation ID: [id number] Transcribed By: Self Edit Transcribed Date: 03/15/2024 12:08 ET Narrative 03/15/2024 12:21 PM EST EXAM: STEREOTACTIC MAMMOGRAPHY ??GUIDED BREAST BIOPSY, LEFT, UPPER INNER QUADRANT, ??3 cm FN BIOPSY SITE MARKER PLACEMENT : ??Biopsy site marker was placed POSTPROCEDURE MAMMOGRAPHY: Was performed STEREOTACTIC MAMMOGRAPHY ??GUIDED BREAST BIOPSY, LEFT, UPPER INNER QUADRANT, 5 ??cm FN BIOPSY SITE MARKER PLACEMENT : ??Biopsy site marker was placed POSTPROCEDURE MAMMOGRAPHY: Was performed EXAM DATE AND TIME: 03/15/2024 10:00 AM HISTORY: Increasing grouped calcifications upper inner left breast. ??2 separate groupings of suspicious calcifications 4 which tissue diagnosis was requested. PROCEDURE: Informed consent was obtained. A per diem interpreter was used throughout the consent process and during the entire procedure as well as assisting with communicating the post procedure care instructions A procedure pause was performed including patient identification using 3 identifiers. Preprocedure imaging demonstrated: ??2 separate areas of concern with tightly grouped coarse calcifications in the upper inner left breast. ??Sampling of a grouping 3 cm from the nipple and sampling of a grouping 5 cm from the nipple was undertaken. SITE #1 - LEFT, CALCIFICATIONS, 3 cm from nipple Using sterile technique and lidocaine anesthesia, Stereotactic mammography guided biopsy of the left breast was performed from a superior approach. A 9 gauge Vacuum assisted core biopsy device was used. ??There was documentation of appropriate needle placement with digital archive. SPECIMEN RADIOGRAPHY: ??Was performed and suggest appropriate sampling. 4 specimens were placed in formalin and submitted for pathologic evaluation. A radiopaque marker was deployed at the site for future reference. BIOPSY SITE MARKER SHAPE: ??OPEN COIL HYDROMARK Imaging after attempted clip deployment did not confirm appropriate deployment. There are residual calcifications at the site. Upon completion of the procedure, pressure was applied until adequate hemostasis was obtained. SITE #2 - LEFT, CALCIFICATIONS, 5 cm from nipple Using sterile technique and lidocaine anesthesia, Stereotactic mammography guided biopsy of the left breast was performed from a superior approach. A 9 gauge Vacuum assisted core biopsy device was used. ??There was documentation of appropriate needle placement with digital archive. SPECIMEN RADIOGRAPHY: ??Was performed and suggest appropriate sampling. 3 specimens were placed in formalin and submitted for pathologic evaluation. A radiopaque marker was deployed at the site for future reference. BIOPSY SITE MARKER SHAPE: ??BUTTERFLY Imaging after attempted clip deployment did not confirm appropriate deployment. ??The biopsy site marker was seen attached to the introducer and at the margin of the aperture of the biopsy device upon removal. There are residual calcifications at the site. Upon completion of the procedure, pressure was applied until adequate hemostasis was obtained. The patient tolerated the procedure well and was discharged in good condition after being educated regarding post procedure care and instructions and contact information should she be concerned about a complication. An addendum will be generated when the pathology results become available. Postprocedure mammography: ??Was performed Laterality: LEFT TISSUE DENSITY: The breasts are heterogeneously dense, which may obscure small masses. (BI-RADS category C) FINDINGS: ??No biopsy site marker are demonstrated. ??This was communicated to the patient. ??There are residual calcifications at each site. There are similar tightly grouped calcifications in the outer left breast. ??If the results are benign, imaging surveillance should be appropriate There is no evidence of immediate complication. No new suspicious findings. Darrin Benitez MD IMG BI PROCEDURES E dited Result - Final from Last 3 Months or Most Recently Relevant to Health Maintenance Insurance * Guarantor: Celeste Cunha Account Type Relation to Patient Date of Phone Billing Address Personal/Family Self 1955 [address] [place] [address] [facility] Member Subscriber Plan / Payer ( fective 2023-Present) Name:Celeste Cunha Relation to Subscriber:Self Name:Celeste Cunha Payer ID:[id number] Group ID:[id number] Type:Not on file Address: [address] [place] [address] [employer] MEDIC[employer] Member Subscriber Plan / Payer ( fective 2023-Present) Name:Celeste Cunha Relation to Subscriber:Self Name:Celeste Cunha Payer ID:[id number] Group ID:[id number] Type:Not on file Address: [address] [place] [address] Care Teams Photo Booth Operator Relationship Specialty Start Date End Date Jodi Toussaint RN [address] [facility] [address] [place] [address] PCP - General 06/16/21
--- OUTSIDE RECORDS SUMMARY | 2024-07-18 11:51 | XMS_ITS | Encounter Summary ---
Author Organization [employer] Address [address] [place] [address] Care Team Providers Care Email Designer Name Role Phone Gilda De La Torre MD Primary Care Provide r Toya Kyle PharmD Unavailable [phone] Encounter Details Date Type Department Care Team (Late st Contact Info) Description 03/24/2024 Orders Only [facility] [address] [place], [place] [phone] Provider, MD Jose J Social History Tobacco Use Types Packs/Day Years Used Date Smoking Tobacco: Every Day Cigarettes Passive Smoke Exposure: Current Smokeless Tobacco: Never Alcohol Use Standard Drinks/Week [...] Description 07/20/2024 2:00 PM EDT Office Visit [facility] ADULT DENTAL [address] [place] [phone] Chitra Stone DDS [address] [place] [address] 08/06/2024 11:30 AM EDT Office Visit [facility] MEDICINE [address] [place] [address] Gilda De La Torre MD [address] [place] [address] 08/22/2024 2:00 PM EDT Medication Management [facility] MED[facility] [address] [place] [address] Toya Kyle, RosaD [address] [place] [address] documented as of this encounter Procedures Procedure Name Priority Date/Time Associated Diagnosis Comments MAMMOGRAPHY Routine 03/15/2024 2:11 PM EST documented in this encounter Results * Hm Mammography (03/15/2024 2:11 PM EST) Anatomical Region Laterality Modality Other us Historical Provider HEALTH MAINTENANCE Final Result documented in this encounter Visit Diagnoses Not on filedocumented in this encounter Additional Health Concerns Assessment Noted Time PHQ-9 Depression Total Score: 0 09/23/19 3:00 PM EDT documented as of this encounter Care Teams Email Designer Relationship Specialty Start Date End Date Gilda De La Torre MD [address] [place] [address] PCP - General Family Medicine 10/25/21 Toya Kyle, RosaD [address] [place] [address] Pharmacist Internal Medicine 11/06/23 documented as of this encounter
--- OUTSIDE RECORDS SUMMARY | 2024-07-18 11:51 | XMS_ITS | Encounter Summary ---
Author Organization [employer] Address [address] [place] [address] Care Team Providers Care Topper Press Operator Automatic Name Role Phone Gilda De La Torre MD Primary Care Provide r Toya Kyle PharmD Unavailable [phone] Reason for Visit * Reason Onset Date Comments SHOE LACER Hours and VNA Services 04/14/2023 Encounter Details Date Type Department Care Team (Late st Contact Info) Description 04/14/2023 Telephone [facility] [address] [place], [place] [phone] Gilda De La Torre MD [address] [place], [place] [phone] SHOE LACER Hours and VNA Services Social History Tobacco Use Types Packs/Day Years Used Date Smoking Tobacco: Every Day Cigarettes Passive Smoke Exposure: Current Smokeless Tobacco: Never Depression Answer Date Recorded Patient Health Questionnaire-9 Score 14 05/20/2022 Housing Stability Answer Date Recorded What is your housing situation today? I have giles collado 12/15/[address] you li ve. Do you have problems with any of the following? None of the above 12/15/2022 Food Insecurity Answer Date Recorded Within the [...] AM EDT documented as of this encounter Miscellaneous Notes * Telephone Encounter - Tammy Nunez - 05/19/2023 1:29 PM EDT Tc from [facility] with [facility] requesting status of increase on SHOE LACER hours request. Please contact at [phone] * Telephone Encounter - Leyla Peacock - 05/04/2023 3:56 PM EST Tc from [facility] requesting status on SHOE LACER hours and life alert request. Please contact at [phone] * Telephone Encounter - Joy Winn - 04/14/2023 4:32 PM EST Tc from Kika with [employer] stating that pt is requiring more SHOE LACER Hours and VNA Orders. Please contact Wendy @ [phone] documented in this encounter Plan of Treatment Upcoming Encounters Date Type Department Care Team (Late st Contact Info) Description 07/20/2024 2:00 PM EDT Office Visit [facility] ADULT DENTAL [address] [place] [address] Chitra Stone DDS [address] [place] [address] 08/06/2024 11:30 AM EDT Office Visit [facility] [address] [place] [phone] Gidla De La Torre MD [address] [place] [address] 08/22/2024 2:00 PM EDT Medication Management [facility] [address] [place] [address] Toya Kyle, PharmD [address] [place] [address] documented as of this encounter Visit Diagnoses Not on filedocumented in this encounter Additional Health Concerns Assessment Noted Time PHQ-9 Depression Total Score: 14 023 10:32 AM EDT documented as of this encounter Care Teams Topper Press Operator Automatic Relationship Specialty Start Date End Date Gilda De La Torre MD [address] [place] [address] PCP - General Family Medicine 10/25/21 Toya Kyle PharmD [address] [place] [phone] Pharmacist Internal Medicine 11/06/23 documented as of this encounter
--- OUTSIDE RECORDS SUMMARY | 2024-07-18 11:51 | XMS_ITS | Encounter Summary ---
Author Organization [employer] Address [address] [place] [address] Care Team Providers Care Trolley Worker Name Role Phone Gilda De La Torre MD Primary Care Provide r Toya Kyle PharmD Unavailable [phone] Encounter Details Date Type Department Care Team (Late st Contact Info) Description 11/02/[address] [facility] [address] [place] [address] Toya Kyle, PharmD [address] [place] [address] Social History Tobacco Use Types Packs/Day Years [...] encounter Miscellaneous Notes * Telephone Encounter - Toya Kyle PharmD - 11/02/2023 12:45 PM EDT A new referral is needed for this patient to enroll care in [facility] - Diabetes clinic. Please send at your earliest convenience. documented in this encounter Plan of Treatment Upcoming Encounters Date Type Department Care Team (Late st Contact Info) Description 07/20/2024 2:00 PM EDT Office Visit [facility] ADULT DENTAL [address] [place] [address] Chitra Stone DDS [address] [place] [address] 08/06/2024 11:30 AM EDT Office Visit [facility] [address] [place] [address] Gilda De La Torre MD [address] [place] [address] 08/22/2024 2:00 PM EDT Medication Management [facility] [address] [place] [address] Toya Kyle PharmD [address] [place] [address] documented as of this encounter Visit Diagnoses Diagnosis Type 2 diabetes mellitus with hyperglycemia, with long-term current use of insulin ([facility])- Primary documented in this encounter Additional Health Concerns Assessment Noted Time PHQ-9 Depression Total Score: 0 09/23/19 3:00 PM EDT documented as of this encounter Care Teams Trolley Worker Relationship Specialty Start Date End Date Gilda De La Torre MD [address] [place] [address] PCP - General Family Medicine 10/25/21 Toya Kyle, Fay [address] [place] [phone] Pharmacist Internal Medicine 11/06/23 documented as of this encounter
--- OUTSIDE RECORDS SUMMARY | 2024-07-18 11:51 | XMS_ITS | Encounter Summary ---
Author Organization [employer] Address [address] [place] [address] Care Team Providers Care Plumbing Drafter Name Role Phone Gilda De La Torre MD Primary Care Provide r Toya Kyle PharmD Unavailable [phone] Reason for Visit * Reason Comments Med Refill Encounter Details Date Type Department Care Team (Late st Contact Info) Description 03/08/2024 Refill [facility] MED[facility] [address] [place], [place] [phone] Gilda De La Torre MD [address] [place], [place] [phone] Primary hypertension Social History Tobacco Use Types Packs/Day Years [...] Description 07/20/2024 2:00 PM EDT Office Visit [facility] ADULT DENTAL [address] [place] [phone] Chitra Stone, DDS [address] [place] [address] 08/06/2024 11:30 AM EDT Office Visit [facility] MED[facility]INE [address] [place] [address] Gilda De La Torre MD [address] [place] [address] 08/22/2024 2:00 PM EDT Medication Management [facility] [address] [place] [address] Toya Kyle, PharmD [address] [place] [address] documented as of this encounter Visit Diagnoses Diagnosis Primary hypertension Unspecified essential hypertension documented in this encounter Additional Health Concerns Assessment Noted Time PHQ-9 Depression Total Score: 0 09/23/19 3:00 PM EDT documented as of this encounter Care Teams Plumbing Drafter Relationship Specialty Start Date End Date Gilda De La Torre MD [address] [place] [address] PCP - General Family Medicine 10/25/21 Toya Kyle, RosaD [address] [place] [phone] Pharmacist Internal Medicine 11/06/23 documented as of this encounter
--- OUTSIDE RECORDS SUMMARY | 2024-07-18 11:51 | XMS_ITS | Encounter Summary ---
Author Organization [employer] Address [address] [facility] 7t [place] [address] Care Team Providers Care Journeyman Lineman Name Role Phone Gilda De La Torre MD Primary Care Provide r Toya Kyle PharmD Unavailable [phone] Encounter Details Date Type Department Care Team (Late Contact Info) Description 06/22/2022 Orders Only [facility] MED & PEDS [address] [place] [address] Sneha Zapien LPN Social History Tobacco Use Types Packs/Day Years Used Date Smoking Tobacco: Every Day Cigarettes Passive Smoke Exposure: Current Smokeless Tobacco: Never Depression Answer Date Recorded Patient Health Questionnaire-9 Score 14 05/20/2022 Depression Answer Date Recorded Patient Health Questionnaire-2 Score 2 05/20/2022 Comments Unknown Sex and Gender Information Value Date Recorded Sex Assigned at Female 12/28/2021 10:14 AM EDT Legal Sex Female 10:14 AM EDT Gender Identity Female 12/28/2021 10:14 AM EDT Sexual Orientation Straight 12/28/2021 10 :14 AM EDT documented as of this encounter Plan of Treatment Upcoming Encounters Date Type Department Care Team ([facility] Contact Info) Description 07/20/2024 2:00 PM EDT Office Visit [facility] ADULT DENTAL [address] [place], [place] [phone] Chitra Stone, DDS [address] [place], [place] [phone] 08/06/2024 11:30 AM EDT Office Visit [facility] MEDICINE [address] [place] [address] Gilda De La Torre MD [address] [place] [address] 08/22/2024 2:00 PM EDT Medication Management [facility] MEDICINE [address] [place] [address] Toya Kyle PharmD [address] [place] [address] documented as of this encounter Visit Diagnoses Not on filedocumented in this encounter Additional Health Concerns Assessment Noted Time PHQ-9 Depression Total Score: 14 023 10:32 AM EDT documented as of this encounter Care Teams Journeyman Lineman Relationship Specialty Start Date End Date Gilda De La Torre MD [address] [place] [address] PCP - General Family Medicine 10/25/21 Toya Kyle PharmD [address] [place] [address] [phone] Pharmacist Internal Medicine 11/06/23 documented as of this encounter
--- OUTSIDE RECORDS SUMMARY | 2024-07-18 11:51 | XMS_ITS | Encounter Summary ---
Author Organization [employer] Address [address] [facility] [address] 7t [place] [address] Care Team Providers Care Service Technician Copier Name Role Phone Gilda De La Torre MD Primary Care Provide r Toya Kyle PharmD Unavailable [phone] Reason for Visit * Reason Onset Date Comments Error 06/10/2023 Encounter Details Date Type Department Care Team (Late st Contact Info) Description 06/10/2023 Telephone [facility] MEDICINE [address] [place], [place] [phone] Gilda De La Torre MD [address] [place], [place] [phone] Error Social History Tobacco Use Types Packs/Day Years Used Date Smoking Tobacco: Every Day Cigarettes Passive Smoke Exposure: Current Smokeless Tobacco: Never Alcohol Use Standard Drinks/Week Comments Never 0 (1 standard drink = 0.6 oz pur e alcohol) Depression Answer Date Recorded Patient Health Questionnaire-9 [...] enough money to get more: Never True 10/ Transportation Answer Date Recorded In the past [...] Description 07/20/2024 2:00 PM EDT Office Visit [facility] ADULT DENTAL [address] [place] [address] Chitra Stone, DDS [address] [place] [address] 08/06/2024 11:30 AM EDT Office Visit [facility] MEDICINE [address] [place] [address] Gilda De La Torre MD [address] [place] [address] 08/22/2024 2:00 PM EDT Medication Management [facility] MEDICINE [address] [place] [address] Toya Kyle, PharmD [address] [place] [address] documented as of this encounter Visit Diagnoses Not on filedocumented in this encounter Additional Health Concerns Assessment Noted Time PHQ-9 Depression Total Score: 14 023 10:32 AM EDT documented as of this encounter Care Teams Service Technician Copier Relationship Specialty Start Date End Date Gilda De La Torre MD [address] [place] [address] PCP - General Family Medicine 10/25/21 Toya Kyle, RosaD [address] [place] [address] Pharmacist Internal Medicine 11/06/23 documented as of this encounter
== END 2024-07-18 10:59 | disposition home or self-care (01) ==
LOC: HO.HKA 10:22
PROVIDERS: PCP Internal Medicine; Visit Provider Internal Medicine Nephrology
DX: I10 Essential (primary) hypertension (principal)
CPT/HCPCS: 99214

== ENCOUNTER 2024-07-18 11:15 | Outpatient (REF) | payer OTHER, SELFPAY ==
--- OUTSIDE RECORDS SUMMARY | 2024-07-18 12:33 | XMS_ITS | Clinical Summary ---
Author Organization [facility] Address [address] [place] [address] Phone Care Team Providers Care Product Tester Name Role Phone Jodi Toussaint RN Primary Care Provider [phone] Allergies No known active allergies Medical History Medical History Date Comments Dermatophytosis 08/05/2021 DX:Dermatophytos is Back pain 08/05/2021 DX:Back pain Schizoaffective disorder (CM S/HCC V24, CMS/HCC V28) 08/05/2021 DX:Schizoaffective disorder (HCC) Hyperlipidemia 08/05/2021 DX:Hyperlipidemi a Elevated TSH 08/05/2021 DX:Elevated TSH Diabetes mellitus (CMS/HCC V 24, [facility] V28) 08/05/2021 DX:Diabetes mellitus (HCC) PTSD (post-traumatic stress disorder) 08/05/2021 DX:PTSD (post-traumatic stress disorder) Frontal lobe dementia (CMS/H CC V24, [facility]/HCC V28) 08/05/2021 DX:Frontal lobe dementia (HC C) [...] PM EDT Office Visit Orthopedic Surgery - [place] [address] [phone] Marcel Alatorre, [place] [address] [address] Health Maintenance Due Date Last Done Comments [...] results The pathology results were communicated to Daylin the social organization professor assisting in the care of Ms. Cunha I notified the social organization professor of the benign results and the recommendation for mammography in one year at approximately 1430 hours on 03/20/2024 -------- ADDENDUM -------- Dictated By: Samy Martinez Dictated Date: 03/20/2024 14:28 ET Assigned Physician: Samy Martinez Reviewed and Electronically Signed By: Samy Martinez Signed Date: 03/20/2024 14:29 ET Workstation ID: [id number] Transcribed By: Self Edit Transcribed Date: 03/20/2024 [...] Signed Date: 03/16/2024 12:59 ET Workstation ID: [id number] Transcribed By: Self Edit Transcribed Date: 03/16/2024 [...] was explained to the patient through the scene painter. There was no evidence of immediate complication. Postprocedure mammography was performed. An addendum will be generated when the pathology results become available RECOMMENDATION: Pathology pending for the left breast. -------- FINAL REPORT -------- Dictated By: Samy Martinez Dictated Date: 03/15/2024 12:08 ET Assigned Physician: Samy Martinez Reviewed and Electronically Signed By: Samy Martinez Signed Date: 03/15/2024 12:21 ET Workstation ID: [id number] Transcribed By: Self Edit Transcribed Date: 03/15/2024 [...] requested. PROCEDURE: Informed consent was obtained. A bag sealer was used throughout the consent process and [...] Phone Billing Address Personal/Family Self 1955 [address] [facility] [address] [place] [address] [facility] Member Subscriber Plan / Payer ( fective 2023-Present) Name:Celeste Cunha Relation to Subscriber:Self Name:Celeste Cunha Payer ID:[id number] Group ID:[id number] Type:Not on file Address: [address] [place] [address] [facility] MEDICARE Member Subscriber Plan / Payer ( fective 2023-Present) Name:Celeste Cunha Relation to Subscriber:Self Name:Celeste Cunha Payer ID:[id number] Group ID:[id number] Type:Not on file Address: [address] [place] [address] Care Teams Product Tester Relationship Specialty Start Date End Date Jodi Toussaint RN 230 [facility] 1 [place] [address] PCP - General 06/16/21
[2024-07-18 14:59] LABS: Anion Gap 11 (12-20); Blood Urea Nitrogen 17 mg/dL (9-16); Carbon Dioxide 28 mmol/L (22-29); Chloride 97 mmol/L (96-108); Estimated Glomerular Filt Rate > 60; Potassium 4.4 mmol/L (3.3-5.1); Sodium 132 mmol/L (135-145)
== END 2024-07-18 11:16 | disposition home or self-care (01) ==
LOC: HO.10HDL 11:15
PROVIDERS: Visit Provider Internal Medicine Nephrology
DX: I10 Essential (primary) hypertension (principal)
CPT/HCPCS: 36415; 80051; 82565; 84520; 99212

== ENCOUNTER 2024-09-26 17:57 | Outpatient (REF) | payer OTHER, SELFPAY ==
--- OUTSIDE RECORDS SUMMARY | 2024-09-26 18:01 | XMS_ITS | Clinical Summary ---
Author Organization [facility] Address [address] [place] [address] Phone Care Team Providers Care Bus Trolley And Taxi Instructor Name Role Phone Jodi Toussaint RN Primary Care Provider [phone] Allergies No known active allergies Encounters Date Type Department Care Team Description 09/03/2024 2:15 PM EDT Office Visit Orthopedic Surgery [facility] [address] [facility] [address] [place] [address] Marcel Alatorre, [place] Controlled type 2 diabetes with neuropathy (CMS/HCC V24, CMS/HCC V28) (Primary Dx); Pain in toes of both feet; Hammertoes of both feet; Difficulty walking; Dermatophytosis, nail from Last 3 Months Medical History Medical History Date Comments Dermatophytosis 08/05/2021 DX:Dermatophytos is Back pain 08/05/2021 DX:Back pain Schizoaffective disorder (CM S/HCC V24, CMS/HCC V28) 08/05/2021 DX:Schizoaffective disorder (HCC) Hyperlipidemia 08/05/2021 DX:Hyperlipidemi a Elevated TSH 08/05/2021 DX:Elevated TSH Diabetes mellitus (CMS/HCC V 24, CMS/HCC V28) 08/05/2021 DX:Diabetes mellitus (HCC) PTSD (post-traumatic stress disorder) 08/05/2021 DX:PTSD (post-traumatic stress disorder) Frontal lobe dementia (CMS/H CC V24, CMS/HCC V28) 08/05/2021 DX:Frontal lobe dementia (HC C) [...] - - Weight 68 kg (150 lb) 09/03/2024 2:28 PM EDT Height 152.4 cm (5') 11/30/2022 12:50 PM EDT Body Mass Index 29.29 11/30/2022 12:50 PM EDT Plan of Treatment Upcoming Encounters Date Type Department Care Team (Late st Contact Info) Description 12/10/2024 1:30 PM EDT Office Visit Orthopedic Surgery - [place] [address] [phone] Marcel Alatorre, [place] [address] [address] Health Maintenance Due Date Last Done Comments Diabetes: Annual GFR (Glomerular Filtration Rate) 1955 Diabetes: Annual Foot Exam 01/16/1966 Diabetes: Annual Retina Eye Exam 01/16/1966 Colorectal Cancer Screening: Colonoscopy 02/07/2022 Diabetes: Annual Urine Albumin-Creatinine Ratio (uACR) 02/07/2022 Falls Risk Assessment 02/07/2022 Hepatitis C Screening 02/07/2022 Medicare Annual Wellness Visit 02/07/2022 Osteoporosis Screening (Bone Density Screening) 02/07/2022 Social Influencers of Health Screening 02/07/2022 Hypertension/CHF/CAD Annual BMP Blood Test 02/13/2022 COVID-19 Vaccine ( season) 2023 03/10/2022, 12/22/2020, 06/03/2020, Additional history exists Depression Screening 02/29/2024 Influenza Vaccine (#1) 2024 , 12/03/2022, 12/08/2021, Additional history exists Diabetes: Blood Sugar Control Test (HGBA1C) 12/11/2024 06/11/2024, 03/09/2024, 12/28/2023 Breast Cancer Screening 03/15/2026 03/15/2024 DTaP,Tdap,and Td Vaccines (4 - Td or Tdap) 02/03/2027 02/03/2017, 12/29/2006, 11/26/1999 Cholesterol Screening (Lipid Panel) 05/12/2029 05/12/2024, 01/07/2023 Hepatitis B Vaccines Completed 01/27/2021, 01/31/2019, 09/15/2015 Pneumococcal Vaccine: 50+ Years Completed 10/21/2021, 12/08/2015, 07/09/2007, Additional history exists Zoster Vaccines Completed 12/25/2021, 09/29, 02/03/2017 RSV Immunization Adult Patients Completed 05/07/2024 HIB Vaccines Aged Out No [...] results were communicated to Daylin the social media marketer assisting in the care of Ms. Guerline Mariano notified the social media marketer of the benign results and the recommendation for mammography in one year at approximately 1430 hours on 03/20/2024 -------- ADDENDUM -------- Dictated By: Samy Martinez Dictated Date: 03/20/2024 14:28 ET Assigned Physician: Samy Martinez Reviewed and Electronically Signed By: Samy Martinez Signed Date: 03/20/2024 14:29 ET Workstation ID: [id number] Transcribed By: Self Edit Transcribed Date: 03/20/2024 14:28 ET Addendum by Samy Martinez MD on 03/16/2024 12:59 PM EST Addendum: The final pathology results from the procedure are now available; DATE: 03/15/2024 LOCATION: SITE #1 - LEFT, CALCIFICATIONS, 3 cm from nipple STEREOTACTICALLY GUIDED FINAL PATHOLOGY RESULT: ?Left breast, upper inner, 3 cm from nipple, site #1, calcifications, stereotactic core biopsy: Benign breast tissue with calcifications within fibroadenomatoid stroma No atypia or malignancy identified ? B. Left breast, upper inner, 3 cm from nipple, site #1, associated tissue, stereotactic core biopsy: Benign breast tissue No atypia or malignancy identified CONCORDANCE: The final pathology results and imaging findings are concordant LOCATION: SITE #2 - LEFT, CALCIFICATIONS, 5 cm from nipple STEREOTACTICALLY GUIDED FINAL PATHOLOGY RESULT: Left breast, upper inner, 5 cm from nipple, site #2, calcifications, stereotactic core biopsy: Benign breast tissue with calcifications within fibroadenomatoid stroma No atypia or malignancy identified ? D. Left breast, upper inner, 5 cm from nipple, site #2, associated tissue, stereotactic core biopsy: Benign breast tissue No atypia or malignancy identified CONCORDANCE: The final pathology results and imaging findings are concordant ASSESSMENT: BI-RADS 2: BENIGN RECOMMENDATION(S): 1: Routine screening mammogram BILATERAL in 1 year. COMMUNICATION: Departmental staff will notify the patient Addendum: BREAST DENSITY: C - The breasts are heterogeneously dense which may obscure small masses. BI-RADS CATEGORY: 2 - BENIGN RECOMMENDATION: Screening bilateral mammogram is recommended in 1 year. -------- ADDENDUM -------- Dictated By: Samy Martinez Dictated Date: 03/16/2024 12:55 ET Assigned Physician: Samy Martinez Reviewed and Electronically Signed By: Samy Martinez Signed Date: 03/16/2024 12:59 ET Workstation ID: [id number] Transcribed By: Self Edit Transcribed Date: 03/16/2024 12:55 ET Impressions 03/15/2024 12:21 PM EST STEREOTACTIC MAMMOGRAPHY was used to localize and guide left breast biopsy. 2 separate procedures were performed. 2 specimens were submitted. STEREOTACTIC MAMMOGRAPHY was used to guide placement of a biopsy site marker. However, neither biopsy site marker remains in the patient after the procedure. There are residual calcifications at each site. This was explained to the patient through the decision science analyst. There was no evidence of immediate complication. Postprocedure mammography was performed. An addendum will be generated when the pathology results become available RECOMMENDATION: Pathology pending for the left breast. -------- FINAL REPORT -------- Dictated By: Samy Martinez Dictated Date: 03/15/2024 12:08 ET Assigned Physician: Samy Martinez Reviewed and Electronically Signed By: Samy Martinez Signed Date: 03/15/2024 12:21 ET Workstation ID: [id number] Transcribed By: Self Edit Transcribed Date: 03/15/2024 12:08 ET Narrative 03/15/2024 12:21 PM EST EXAM: STEREOTACTIC MAMMOGRAPHY GUIDED BREAST BIOPSY, LEFT, UPPER INNER QUADRANT, 3 cm FN BIOPSY SITE MARKER PLACEMENT : Biopsy site marker was placed POSTPROCEDURE MAMMOGRAPHY: Was performed STEREOTACTIC MAMMOGRAPHY GUIDED BREAST BIOPSY, LEFT, UPPER INNER QUADRANT, 5 cm FN BIOPSY SITE MARKER PLACEMENT : Biopsy site marker was placed POSTPROCEDURE MAMMOGRAPHY: Was performed EXAM DATE AND TIME: 03/15/2024 10:00 AM HISTORY: Increasing grouped calcifications upper inner left breast. 2 separate groupings of suspicious calcifications 4 which tissue diagnosis was requested. PROCEDURE: Informed consent was obtained. A junior accountant was used throughout the consent process and during the entire procedure as well as assisting with communicating the post procedure care instructions A procedure pause was performed including patient identification using 3 identifiers. Preprocedure imaging demonstrated: 2 separate areas of concern with tightly grouped coarse calcifications in the upper inner left breast. Sampling of a grouping 3 cm from the nipple and sampling of a grouping 5 cm from the nipple was undertaken. SITE #1 - LEFT, CALCIFICATIONS, 3 cm from nipple Using sterile technique and lidocaine anesthesia, Stereotactic mammography guided biopsy of the left breast was performed from a superior approach. A 9 gauge Vacuum assisted core biopsy device was used. There was documentation of appropriate needle placement with digital archive. SPECIMEN RADIOGRAPHY: Was performed and suggest appropriate sampling. 4 specimens were placed in formalin and submitted for pathologic evaluation. A radiopaque marker was deployed at the site for future reference. BIOPSY SITE MARKER SHAPE: OPEN COIL HYDROMARK Imaging after attempted clip deployment [...] Vacuum assisted core biopsy device was used. There was documentation of appropriate needle placement with digital archive. SPECIMEN RADIOGRAPHY: Was performed and suggest appropriate sampling. 3 specimens were placed in formalin and submitted for pathologic evaluation. A radiopaque marker was deployed at the site for future reference. BIOPSY SITE MARKER SHAPE: BUTTERFLY Imaging after attempted clip deployment did not confirm appropriate deployment. The biopsy site marker was seen attached to [...] the pathology results become available. Postprocedure mammography: Was performed Laterality: LEFT TISSUE DENSITY: The breasts are heterogeneously dense, which may obscure small masses. (BI-RADS category C) FINDINGS: No biopsy site marker are demonstrated. This was communicated to the patient. There are residual calcifications at each site. There are similar tightly grouped calcifications in the outer left breast. If the results are benign, imaging surveillance should be appropriate There is no evidence of immediate complication. No new suspicious findings. Darrin Benitez MD IMG BI PROCEDURES E dited Result - Final from Last 3 Months or Most Recently Relevant to Health Maintenance Insurance [place] [address] [facility] Member Subscriber Plan / Payer (Ef fective 2023-Present) Name:Celeste Cunha Relation to Subscriber:Self Name:Celeste Cunha Payer ID:[id number] Group ID:[id number] Type:Not on file Address: [address] [place] [address] [facility] MEDICARE Member Subscriber Plan / Payer (Ef fective 2023-Present) Name:Celeste Cunha Relation to Subscriber:Self Name:Celeste Cunha Payer ID:[id number] Group ID:[id number] Type:Not on file Address: [address] [place] [address] Care Teams Bus Trolley And Taxi Instructor Relationship Specialty Start Date End Date Jodi Toussaint RN 230 [facility] 1 [place] [address] PCP - General 06/16/21
[2024-09-26 18:03] LABS: Appearance Urine Cloudy; Glucose Urine UA Negative (Negative); PH 7.0 (5.0-9.0); Specific Gravity - Urine <= 1.005 (1.005-1.025); UMIC TRIGGER UACC YES
[2024-09-26 18:31] LABS: UACC Culture Trigger YES
== END 2024-09-26 17:58 | disposition home or self-care (01) ==
LOC: HO.LNP 17:57
PROVIDERS: Visit Provider Nurse Practitioner Family
DX: R39.9 Unspecified symptoms and signs involving the genitourinary system (principal)
CPT/HCPCS: 81001; 87086

== ENCOUNTER 2024-10-15 15:30 | Outpatient (REF) | payer OTHER, SELFPAY ==
--- NOTE | ~2024-10-15 | XR_ITS ---
EXAMINATION: XR SHOULDER, LEFT CLINICAL INFORMATION: fall, L shoulder pain acute on chronic COMPARISON: None available. TECHNIQUE: AP external rotation, Grashey, scapular Y, and axillary views of the left shoulder. FINDINGS: Normal bone mineralization. No fracture, dislocation, or suspicious bone lesion. Normal alignment. The glenohumeral joint demonstrates mild degenerative arthritis. The AC joint is normal. There is small to moderate size undersurface acromial spurring. The subacromial space is preserved. Remainder of the soft tissue and bony structures appear normal. XR/XR shoulder LT min 2V IMPRESSION: 1. No acute bony abnormalities of the left shoulder. 2. Mild degenerative glenohumeral joint arthritis. 3. Small to moderate sized subacromial spur. Electronically signed by: Tramaine Purdy MD 10/15/2024 04:23 PM EDT
--- NOTE | ~2024-10-15 | XR_ITS ---
EXAMINATION: XR CERVICAL SPINE CLINICAL INFORMATION: fall, c/o neck pain COMPARISON: None available. TECHNIQUE: 3 views of the cervical spine were obtained. FINDINGS: There is a trace right convex scoliosis. There is a mild reversal of the normal lordosis centered at C4. There is no fracture, compression deformity, traumatic subluxation, or suspicious bone lesion. Craniocervical junction and C1-2 articulation appear intact and aligned. There is a 2 mm degenerative retrolisthesis of C5 on C6. There is severe disc degeneration at C5-6 and C6-7. There is normal facet alignment. Mild multilevel bilateral facet hypertrophic degenerative change. There is no prevertebral soft tissue swelling. There are carotid bulb calcifications bilaterally. Imaged lung apices are clear. XR/XR cervical spine 3V IMPRESSION: 1. No acute bony abnormalities of the cervical spine. 2. Moderate degenerative spondylosis most significant C5-6 and C6-7. Electronically signed by: Tramaine Purdy MD 10/15/2024 04:26 PM EDT
--- OUTSIDE RECORDS SUMMARY | 2024-10-15 16:00 | XMS_ITS | Encounter Summary ---
Author Organization [employer] Address [address] [facility] 7t [place] [address] Care Team Providers Care Medical Services Manager Name Role Phone Gilda De La Torre MD Primary Care Provide r Toya Kyle PharmD Unavailable [phone] Reason for Visit * Reason Comments Med Refill Encounter Details Date Type Department Care Team (Late Contact Info) Description 10/08/2022 Refill [facility] MEDICINE [address] [place] [address] Gilda De La Torre MD [address] [place] [address] Social History Tobacco Use Types Packs/Day Years [...] Department Care Team (Late Contact Info) Description 01/30/2025 11:00 AM EST Office Visit [facility] OPTOMETRY [address] [place] [address] Meme Covington, OD [address] [place] [address] documented as of this encounter Visit Diagnoses Not on filedocumented in this encounter Additional Health Concerns Assessment Noted Time PHQ-9 Depression Total Score: 14 023 10:32 AM EDT documented as of this encounter Care Teams Medical Services Manager Relationship Specialty Start Date End Date Gilda De La Torre MD [address] [place] [address] PCP - General Family Medicine 10/25/21 Toya Kyle, Fay [address] [place] [address] Pharmacist Internal Medicine 11/06/23 documented as of this encounter
--- OUTSIDE RECORDS SUMMARY | 2024-10-15 16:00 | XMS_ITS | Clinical Summary ---
Author Organization [facility] Address [address] [place] [address] Phone Care Team Providers Care Corporate Ethics Officer Name Role Phone Jodi Toussaint RN Primary Care Provider [phone] Allergies No known active allergies Encounters Date Type Department Care Team Description 09/03/2024 2:15 PM EDT Office Visit Orthopedic Surgery [facility] [address] [facility] [address] [place] [address] Marcel Alatorre, [place] Controlled type [...] PM EDT Office Visit Orthopedic Surgery - [place] [address] [phone] Marcel Alatorre, [place] [address] [address] Health Maintenance Due Date Last Done Comments [...] results were communicated to Daylin the social insurance administrator assisting in the care of Ms. Guerline Mariano notified the social insurance administrator of the benign results and the recommendation for mammography in one year at approximately 1430 hours on 03/20/2024 -------- ADDENDUM -------- Dictated By: Samy Martinez Dictated Date: 03/20/2024 14:28 ET Assigned Physician: Samy Martinez Reviewed and Electronically Signed By: Samy Martinez Signed Date: 03/20/2024 14:29 ET Workstation ID: [id number] Transcribed By: Self Edit Transcribed Date: 03/20/2024 [...] Signed Date: 03/16/2024 12:59 ET Workstation ID: [id number] Transcribed By: Self Edit Transcribed Date: 03/16/2024 [...] was explained to the patient through the executive administrative asst. There was no evidence of immediate complication. Postprocedure mammography was performed. An addendum will be generated when the pathology results become available RECOMMENDATION: Pathology pending for the left breast. -------- FINAL REPORT -------- Dictated By: Samy Martinez Dictated Date: 03/15/2024 12:08 ET Assigned Physician: Samy Martinez Reviewed and Electronically Signed By: Samy Martinez Signed Date: 03/15/2024 12:21 ET Workstation ID: [id number] Transcribed By: Self Edit Transcribed Date: 03/15/2024 [...] requested. PROCEDURE: Informed consent was obtained. A guest services lead was used throughout the consent process and [...] Most Recently Relevant to Health Maintenance Insurance [address], [place] [address] [facility] Member Subscriber Plan / Payer (Ef fective 2023-Present) Name:Celeste Cunha Relation to Subscriber:Self Name:Celeste Cunha Payer ID:[id number] Group ID:[id number] Type:Not on file Address: [address] [place] [address] [facility] MEDICARE Member Subscriber Plan / Payer (Ef fective 2023-Present) Name:Celeste Cunha Relation to Subscriber:Self Name:Celeste Cunha Payer ID:[id number] Group ID:[id number] Type:Not on file Address: [address] [place] [address] Care Teams Corporate Ethics Officer Relationship Specialty Start Date End Date Jodi Toussaint RN 230 [facility] 1 [place] [address] PCP - General 06/16/21
== END 2024-10-15 15:31 | disposition home or self-care (01) ==
LOC: HO.HHCX 15:30
PROVIDERS: PCP Internal Medicine; Visit Provider Nurse Practitioner Primary Care
DX: M25.512 Pain in left shoulder (principal); M54.2 Cervicalgia; G89.29 Other chronic pain
CPT/HCPCS: 72040; 73030

== ENCOUNTER → 2024-10-15 15:37 | Outpatient (BNV) | payer OTHER, SELFPAY | PROVIDERS: PCP Internal Medicine; Visit Provider Radiology Diagnostic Radiology | DX: M54.2 Cervicalgia (principal); M47.812 Spondylosis without myelopathy or radiculopathy, cervical region; M25.512 Pain in left shoulder; M25.712 Osteophyte, left shoulder; W19.XXXA Unspecified fall, initial encounter | CPT/HCPCS: 72040; 73030 ==

== ENCOUNTER 2024-10-28 09:16 | Emergency (ER) | payer OTHER, SELFPAY ==
--- NOTE | ~2024-10-28 | XR_ITS ---
CLINICAL HISTORY: trauma --- Additional Notes or Special Instructions: can wait for c spine to be cleared 1 view chest x-ray. Comparison: CR/NE/SR - XR CHEST 2 VIEWS - 10/14/23 15:44 EDT Findings: The lungs are adequately expanded. Minimal interstitial prominence. No focal consolidation. No effusion or pneumothorax. Cardiac and mediastinal contours are within normal limits. No acute osseous abnormality Impression: Minimal interstitial prominence. No focal consolidation. This document has been electronically signed by: Nghia Huston MD on 10/28/2024 12:08:37
--- NOTE | ~2024-10-28 | XR_ITS ---
CLINICAL HISTORY: trauma 1 view pelvis Comparison: None provided Findings: No acute fracture or dislocation. No significant degenerative changes. Moderate fecal retention within the colon. Moderate atherosclerotic disease present. IMPRESSION: 1. No acute findings. This document has been electronically signed by: Nghia Huston MD on 10/28/2024 12:09:23
--- NOTE | ~2024-10-28 | CT_ITS ---
CLINICAL HISTORY: trauma CT cervical spine without contrast Comparison: 08/05/2023 Findings: No fracture or acute malalignment. Degenerative change most pronounced at C5-6 and C6-7. Facet joints are normally imbricating. No prevertebral soft tissue edema. Lung apices demonstrate no acute process. Minimal centrilobular emphysema suggested. Impression: No acute fracture or acute malalignment. Degenerative changes within the lower cervical spine. This document has been electronically signed by: Nghia Huston MD on 10/28/2024 10:57:49
--- NOTE | ~2024-10-28 | CT_ITS ---
CLINICAL HISTORY: trauma CT head without contrast Comparison: 08/05/2023 Findings: No evidence of acute territorial infarct. There is minimal patchy low density in the periventricular and subcortical white matter. Minimal volume loss is noted. No hydrocephalus. No hemorrhage, mass effect, mass lesion or midline shift. No abnormal extra-axial fluid. No calvarial fracture. Paranasal sinuses and mastoid air cells are clear. Impression: No acute intracranial process. Chronic changes as detailed. This document has been electronically signed by: Nghia Huston MD on 10/28/2024 10:59:29
[2024-10-28 09:22] VITALS: BP 141/63; BP 164/98; PULSE 89; PULSE 90; RESP 18; TEMP 37; O2SAT 96; O2SAT 97; BMI 27.8
--- OUTSIDE RECORDS SUMMARY | 2024-10-28 09:39 | XMS_ITS | Encounter Summary ---
Author Organization [employer] Address [address] [facility] 7[address] [place] [address] Care Team Providers Care Mobile Unit Assistant Name Role Phone Gilda De La Torre MD Primary Care Provide r Toya Kyle PharmD Unavailable [phone] Reason for Visit * Reason Onset Date Comments FYI 10/24/2024 Encounter Details Date Type Department Care Team (Late st Contact Info) Description 10/24/2024 Telephone [facility] MEDICINE [address] [place], [place] [phone] Gilda De La Torre MD [address] [place], [place] [phone] FYI Social History Tobacco Use Types Packs/Day Years [...] Answer Date Recorded Patient Health Questionnaire-9 Score 10 10/15/2024 Patient Health Questionnaire-9 Score 10 10/15/2024 Last PHQ-9: Questionnaire Data Not on file 0 10/15/2024 Housing Stability Answer Date Recorded What is your housing situation today? I have giles collado 10/15/[address] you li ve. Do you have problems with any of the following? None of the above 10/15/2024 Food Insecurity Answer Date Recorded Within the past 12 months, y ou worried that your food would run out before you got money to buy more: Never True 10/15/2024 Within the past 12 months,th e food you bought just didn't last and you didn't have enough money to get more: Never True Transportation Answer Date Recorded In the past 12 months, has l ack of transportation kept you from medical appts, meetings, work or from getting things needed for daily living? Yes, it has kept me from non-medical meetings, work, or getting things that I need 10/15/2024 Utilities Answer Date Recorded In the past 12 months, has t he electric, gas, oil or water company threatened to shut off services in your home? No 10/15/2024 Depression Answer Date Recorded Patient Health Questionnaire-2 Score 2 10/15/2024 Internet Access Answer Date Recorded Internet Access Q1 No 10/15/2024 Internet Access Q2 I do not want or need it 09/28 Comments No Sex and Gender Information Value Date Recorded Sex Assigned at Female 12/28/2021 10:14 AM EDT Legal Sex Female 10:14 AM EDT Gender Identity Female 12/28/2021 10:14 AM EDT Sexual Orientation Straight 12/28/2021 10 :14 AM EDT documented as of this encounter Miscellaneous Notes * Telephone Encounter - Marina Castano RN - 10/24/2024 4:31 PM EDT Noted, referred from [facility] * Telephone Encounter - Yinka Suarez - 10/24/2024 4:28 PM EDT Tc from Rivka with [facility] stating they received referral for PT and wanted to inform theywill be admitting pt for at home PT. If any questions contact Rivka at [phone]. documented in this encounter Plan of Treatment Upcoming Encounters Date Type Department Care Team (Late st Contact Info) Description 11/07/2024 2:00 PM EDT Medication Management [facility] MEDICINE [address] [place] [address] Toya Kyle PharmD [address] [place] [address] 01/30/2025 11:00 AM EST Office Visit [facility] OPTOMETRY [address] [place] [address] Meme Covington, OD [address] [place] [address] documented as of this encounter Visit Diagnoses Not on filedocumented in this encounter Additional Health Concerns Assessment Noted Time PHQ-9 Depression Total Score: 10 025 2:47 PM EDT documented as of this encounter Care Teams Mobile Unit Assistant Relationship Specialty Start Date End Date Gilda De La Torre MD [address] [place] [address] PCP - General Family Medicine 10/25/21 Toya Kyle PharmD [address] [place] [address] Pharmacist Internal Medicine 11/06/23 documented as of this encounter
--- OUTSIDE RECORDS SUMMARY | 2024-10-28 09:39 | XMS_ITS | Encounter Summary ---
Author Organization [employer] Address [address] [facility] [address] [place] [address] Care Team Providers Care Hose Suspender Cutter Name Role Phone Gilda De La Torre MD Primary Care Provide r Toya Kyle PharmD Unavailable [phone] Reason for Visit * Reason Onset Date Comments Error 06/10/2023 Encounter Details Date Type Department Care Team (Late st Contact Info) Description 06/10/2023 Telephone [facility] MEDICINE [address] [place], [place] [phone] Gilda De La Torre MD [address] [place], [place] [phone] Error Social History Tobacco Use Types Packs/Day [...] Description 11/07/2024 2:00 PM EDT Medication Management [facility] MEDICINE [address] [place] [address] Toya Kyle PharmD [address] [place] [address] 01/30/2025 11:00 AM EST Office Visit [facility] OPTOMETRY [address] [place] [address] Meme Covington, OD [address] [place] [address] documented as of this encounter Visit Diagnoses Not on filedocumented in this encounter Additional Health Concerns Assessment Noted Time PHQ-9 Depression Total Score: 14 023 10:32 AM EDT documented as of this encounter Care Teams Hose Suspender Cutter Relationship Specialty Start Date End Date Gilda De La Torre MD [address] [place] [phone] PCP - General Family Medicine 10/25/21 Toya Kyle PharmD [address] [place] [phone] Pharmacist Internal Medicine 11/06/23 documented as of this encounter
--- OUTSIDE RECORDS SUMMARY | 2024-10-28 09:39 | XMS_ITS | Encounter Summary ---
Author Organization [employer] Address [address] [facility] [address] [place] [address] Care Team Providers Care Trials Manager Name Role Phone Gilda De La Torre MD Primary Care Provide r Toya Kyle PharmD Unavailable Encounter Details Date Type Department Care Team (Late Contact Info) Description 06/22/2022 Orders Only [facility] PEDS [address] [place] [address] Sneha Zapien LPN Social History Tobacco Use [...] Upcoming Encounters Date Type Department Care Team ([facility] Contact Info) Description 11/07/2024 2:00 PM EDT Medication Management [facility] MEDICINE [address] [place] [address] Toya Kyle, PharmD [address] [place], [place] [phone] 01/30/2025 11:00 AM EST Office Visit [facility] OPTOMETRY [address] [place] [address] Meme Covington, OD [address] [place] [address] documented as of this encounter Visit Diagnoses Not on filedocumented in this encounter Additional Health Concerns Assessment Noted Time PHQ-9 Depression Total Score: 14 023 10:32 AM EDT documented as of this encounter Care Teams Trials Manager Relationship Specialty Start Date End Date Gilda De La Torre MD [address] [place] [address] PCP - General Family Medicine 10/25/21 Toya Kyle, RosaD [address] [place] [address] Pharmacist Internal Medicine 11/06/23 documented as of this encounter
--- OUTSIDE RECORDS SUMMARY | 2024-10-28 09:39 | XMS_ITS | Clinical Summary ---
Author Organization [facility] Address [address] [place] [address] Phone Care Team Providers Care Firefighter Type One Name Role Phone Jodi Toussaint RN Primary Care Provider [phone] Allergies No known active allergies Encounters Date Type Department Care Team Description 09/03/2024 2:15 PM EDT Office Visit Orthopedic Surgery [facility] [address] [facility] [address] [place] [address] Marcel Alatorre, [place] Controlled type [...] PM EDT Office Visit Orthopedic Surgery - [address] [phone] Marcel Alatorre DPM [address] [place] [phone] Health Maintenance Due Date Last Done Comments [...] pathology results were communicated to Daylin the older adult social work specialist assisting in the care of Ms. Guerline Mariano notified the older adult social work specialist of the benign results and the recommendation for mammography in one year at approximately 1430 hours on 03/20/2024 -------- ADDENDUM -------- Dictated By: Samy Martinez Dictated Date: 03/20/2024 14:28 ET Assigned Physician: Samy Martinez Reviewed and Electronically Signed By: Samy Martinez Signed Date: 03/20/2024 14:29 ET Workstation ID: [id number] Transcribed By: Self Edit Transcribed Date: 03/20/2024 [...] Signed Date: 03/16/2024 12:59 ET Workstation ID: [id number] Transcribed By: Self Edit Transcribed Date: 03/16/2024 [...] was explained to the patient through the sensory scientist. There was no evidence of immediate complication. Postprocedure mammography was performed. An addendum will be generated when the pathology results become available RECOMMENDATION: Pathology pending for the left breast. -------- FINAL REPORT -------- Dictated By: Samy Martinez Dictated Date: 03/15/2024 12:08 ET Assigned Physician: Samy Martinez Reviewed and Electronically Signed By: Samy Martinez Signed Date: 03/15/2024 12:21 ET Workstation ID: [id number] Transcribed By: Self Edit Transcribed Date: 03/15/2024 [...] requested. PROCEDURE: Informed consent was obtained. A cps team lead was used throughout the consent process [...] Phone Billing Address Personal/Family Self 1955 [address] [facility] [address] [place] [address] [facility] Member Subscriber Plan / Payer (Ef fective 2023-Present) Name:Celeste Cunha Relation to Subscriber:Self Name:Celeste Cunha Payer ID:[id number] Group ID:[id number] Type:Not on file Address: [address] [place] [address] [employer] MED[employer] Member Subscriber Plan / Payer (Ef fective 2023-Present) Name:Celeste Cunha Relation to Subscriber:Self Name:Celeste Cunha Payer ID:[id number] Group ID:[id number] Type:Not on file Address: [address] [place] [address] Care Teams Firefighter Type One Relationship Specialty Start Date End Date Jodi Toussaint RN [address] [place] [phone] PCP - General 06/16/21
--- OUTSIDE RECORDS SUMMARY | 2024-10-28 09:39 | XMS_ITS | Clinical Summary ---
Author Organization [employer] Address [address] [facility] [address] [place] [address] Care Team Providers Care Fleet Administrator Name Role Phone Gilda De La Torre [...] day for constipation. Active True Comfort Pen [place] 32G X 4 MM misc USE 4 (FOUR) TIMES DAILY 023 Active sertraline (Zoloft) 100 MG tablet Take 1.5 tablets by mouth in the morning. 024 Active lamoTRIgine (LaMICtal) 200 MG tablet Take 1 tablet by mouth in the morning. Active Magnesium 400 MG capsule Take 1 capsule by mouth Once daily. 90 capsule 3 024 Active Additional Information Patient not taking.Reported on 06/08/2024 insulin lispro (HumaLOG KWIKPEN) 100 UNIT/ML injectionIndicati ons:Type 2 diabetes mellitus with hyperglycemia, with long-term current use of insulin ([facility]) Inject 6 units if blood sugar 200-250, inject 8 units if blood sugar >250 twice daily with meals 1 each 3 024 Active polyvinyl alcohol (Liquifilm Tears) 1.4 % ophthalmic solution INSTILL 1 DROP IN EACH EYE 4 (FOUR) TIMES DAILY 024 Active insulin glargine (Lantus SoloStar) 100 UNIT/ML penIndications:Ty pe 2 diabetes mellitus with hyperglycemia, with long-term current use of insulin ([facility]) Inject subcutaneously 26 units once daily Active Additional Information Patient not taking.Reported on 06/08/2024 Alcohol Swabs (Alcohol Pads) 70 % padsIndications:T ype 2 diabetes mellitus with hyperglycemia, with long-term current use of insulin (CMS/HCC) USE DIRECTED 3 (THREE) TIMES A DAY NEEDED 100 each 5 024 Active Aspirin Low Dose 81 MG EC tabletIndications :Primary hypertension TAKE 1 TABLET BY MOUTH ONCE DAILY 90 tablet 2 Active Additional Information Patient not taking.Reported on 06/08/2024 Nyamyc [id number] UNIT/GM powder APPLY TO THE AFFECTED AREA TOPICALLY two (2) times a day 30 g 025 Active Additional Information Patient not taking.Reported on 06/08/2024 traZODone (Desyrel) 50 MG tablet take one (1) tablet by mouth at bedtime Active QUEtiapine (SEROquel) 50 MG tablet Take 1 tablet by mouth at bedtime as needed Active ammonium lactate (Lac-Hydrin) 12 % lotion Active Continuous Glucose Seismic Observer (FreeStyle Ni 3 [place]) deviceIndications :Type 2 diabetes mellitus with other specified complication, with long-term current use of insulin ([facility]) 1 each Use as directed. 1 each Active Additional Information Patient not taking.Reported on 06/08/2024 Continuous Glucose Sensor (FreeStyle Ni 3 Sensor) miscIndications:T ype 2 diabetes mellitus with other specified complication, with long-term current use of insulin ([facility]) 1 each Use as directed. 2 each Active Additional Information Patient not taking.Reported on 06/08/2024 glucose blood (FreeStyle Precision [place] Test) test stripIndications: Type 2 diabetes mellitus with other specified complication, with long-term current use of insulin ([facility]) Use as directed; check blood sugar every 8 hours 100 each 2025 Active Additional Information Patient not taking.Reported on 06/08/2024 mirtazapine (Remeron) 7.5 MG tablet take one (1) tablet by mouth at bedtime Active omeprazole (PriLOSEC) [address] capsule Take 20 mg by mouth before breakfast. Do not crush or chew. Active pantoprazole (ProtoNix) 40 MG EC tabletIndications :Gastroesophageal reflux disease, unspecified whether esophagitis present TAKE 1 TABLET BY MOUTH ONCE DAILY BEFORE BREAKFAST 30 tablet 5 Active atorvastatin (Lipitor) 80 MG tabletIndications :Primary hypertension Take 1 tablet (80 mg) by mouth at bedtime. 90 tablet 1 Active nystatin (Mycostatin) ointment Apply topically 2 times daily. Apply to the affected area two times a day- corner of the mouth. 15 g 1 025 2025 Active lisinopril 10 MG tabletIndications :Primary hypertension TAKE 1 TABLET BY MOUTH EVERY DAY 30 tablet 2 Active metoprolol tartrate (Lopressor) 25 MG tablet TAKE 1 TABLET BY MOUTH two (2) times a day. TAKE WITH FOOD 60 tablet 5 Active gabapentin (Neurontin) 100 MG capsuleIndication s:Chronic low back pain, unspecified back pain laterality, unspecified whether sciatica present TAKE 2 CAPSULES BY MOUTH ONCE DAILY 60 capsule 1 Active Acetaminophen Extra Strength 500 MG tabletIndications :Low back pain, unspecified TAKE 2 TABLETS BY MOUTH EVERY 8 HOURS 30 tablet 1 Active metFORMIN (Glucophage) 500 MG tabletIndications :Type [...] twice a day as needed). 100 g Active Dulaglutide (Trulicity) 4.5 MG/0.5ML solution auto-injectorIndi cations:Type 2 diabetes mellitus with hyperglycemia, with long-term current use of insulin (CMS/HCC) Inject 4.5 mg under the skin 1 (one) time per week. 2 mL 2 Active LORazepam (Ativan) 0.5 MG tablet take one (1) tablet by mouth every evening Active OLANZapine (ZyPREXA) 5 MG tablet Take 1 tablet by mouth at bedtime. Active polyethylene glycol, PEG, 3350 (MiraLax) 17 GM/SCOOP powderIndications :Slow transit constipation Take 17 g by mouth Once per day. 527 g 2 2024 Active liver oil-zinc oxide (Desitin) 40 % ointmentIndicatio ns:Erythema intertrigo Apply topically if needed for irritation. 113 g Active furosemide (Lasix) 20 MG tablet TAKE 1 TABLET BY MOUTH ONCE DAILY 30 tablet 2 Active furosemide (Lasix) 20 MG tablet TAKE 1 TABLET BY MOUTH ONCE DAILY 30 tablet 1 2024 Discontinued mupirocin (Bactroban) 2 % ointmentIndicatio ns:Wound of right lower extremity, initial encounter Apply topically 3 times daily for 10 days. 22 g 025 2024 nitrofurantoin, macrocrystal-mono hydrate, (Macrobid) 100 MG capsule Take 1 capsule (100 mg) by mouth 2 times daily for 5 days. 10 capsule 025 2024 Active Problems Problem Noted Date Diagnosed Date Chronic left shoulder pain 09/19/2024 Unstable gait 09/19/2024 Slow transit constipation 09/19/2024 Assessment & Plan (09/19/2024 7:42 PM EDT): It was instructed to drink more water and add more fiber to her diet Grief 09/19/2024 Assessment & Plan (09/19/2024 7:44 PM EDT): Counseling done, f/u with [facility] Wound of right leg 09/19/2024 Primary hypertension 04/30/2024 Assessment & Plan (04/30/2024 [...] Chronic kidney disease, stage 3 unspecified 09/2023 Assessment & Plan (09/19/2024 7:43 PM EDT): It was recommended to avoid nephrotoxic medications like NSAIDs It was advise good control of blood pressure and diabetes Will continue to monitor Disc degeneration, lumbar 11/06/2023 Dyslipidemia 11/06/2023 Encephalopathy 11/06/2023 Fracture of proximal end of right fibula 024 Hypochloremia 11/06/2023 Lumbar radiculopathy 11/06/2023 Confusion 11/06/2023 Encounter for preventive care 09/23/2023 Assessment & Plan (09/26/2023 11:34 AM EDT): See HPI Tuberculosis screening 07/14/2023 Hypomagnesemia 07/14/2023 Assessment & Plan (07/14/2023 12:40 PM EDT): Blood work order for monitoring Left hip pain 06/27/2023 Assessment & Plan (09/26/2023 11:31 AM EDT): C/w acetaminophen PRN F/u with orthopedics Fall 06/03/2023 Assessment & Plan (06/03/2023 4:34 [...] Chronic schizoaffective schizophrenia 08/20/2011 Assessment & Plan (09/19/2024 7:44 PM EDT): F/u with psychiatrist and [facility] Assessment & Plan (09/08/2022 4:18 PM EDT): continue to follow with psychiatrist Frontal lobe dementia 08/20/2011 Assessment & Plan (09/19/2024 7:46 PM EDT): Stable will continue to monitor Assessment & Plan (04/08/2023 4:33 PM EST): Patient to be evaluated to increase her MOBILE THERAPIST hours Diabetic neuropathy 08/20/2011 Assessment & Plan (09/08/2022 4:16 PM EDT): Continue following with endocrinology for diabetes I will start her on gabapentin to help her with her neuropathy RTC 3 months Hyperlipidemia 08/20/2011 Posttraumatic stress disorder 08/20/2011 Dermatophytosis 07/28/2011 Type 2 diabetes mellitus with diabetic polyneuro jerrod 07/28/2011 Assessment & Plan (09/19/2024 7:45 PM EDT): Diabetes is: not controlled - Lab Results Component Value Date HGBA1C 8.2 (A) 09/19/2024 HGBA1C 7.9 (A) 06/11/2024 HGBA1C 8.7 (A) 03/09/2024 - Lab Results Component Value Date MICROALBUR 46.0 05/14/2024 CREATININE 0.81 05/12/2024 -Changes: I increase her trulicity form 3mg weekly to 4.5mg weekly - Diabetic eye exam:up to date - Diabetic foot exam:pending - Continue lifestyle modifications - Continue current medications - Follow up: 3 months Assessment & Plan (04/30/2024 12:20 PM EST): [...] 0.75mg weekly I will refer her to [facility] - Diabetic eye exam:up to date [...] Problem Noted Date Diagnosed Date Resolved Date Need for assistance at home and no other household member able to render care 06/03/202303/2024 Assessment & Plan (06/03/2023 4:31 PM EDT): Lives alone, family doesn't help much Will ask for most recent home care evaluation to make sure all ADLs are covered as she lives alone and has moderate functional limitation, ambulates with walker, has memory issues and falls repeatedly.; Patient wants to preserve independence and wants to live alone Rx Life ranulfo. Schizoaffective disorder 05/20/202204/2024 Hypertension 07/28/2011 04/02/2024 Assessment [...] Cuff Size: Adult) Pulse 68 Temp 97.8 F (36.6 C) (Oral) Resp 20 Wt 139 lb 3.2 oz (63.1 kg) SpO2 95% BMI 27.19 kg/m Encounters Date Type Department Care Team Description 10/27/2024 Refill [facility] [address] [place] [address] Gilda De La Torre MD Type 2 diabetes mellitus with hyperglycemia, with long-term current use of insulin ([facility]) 10/24/2024 Telephone [facility] [address] [place] [address] Gilda De La Torre MD FYI 10/19/[address] [address] Gilda De La Torre MD 10/16/[address] [address] Ciera Mendoza, RN Home PT Referral 10/15/2024 2:30 PM EDT Office Visit [address] [address] Naya Haywood ANP Stage 3 chronic kidney disease, unspecified whether stage 3a or 3b CKD (CMS/HCC) (Primary Dx); Mixed hyperlipidemia; Type 2 diabetes mellitus with diabetic polyneuropathy, with long-term current use of insulin (CMS/HCC); Frontal lobe dementia (CMS/HCC); Tobacco dependence syndrome; History of fibula fracture; Screening for osteoporosis; Chronic left shoulder pain; Frequent falls; Neck pain; Need for hepatitis C screening test; Screening for lung cancer; Weakness of both lower extremities 10/15/2024 Results Follow-Up [address] [address] Naya Haywood ANP XR CERVICAL SPINE 3V, XR Shoulder 2+ Views Left 10/15/2024 Travel 10/15/[address] [address] Gilda De La Torre MD 10/12/[address] [address] Gilda De La Torre MD chart prep 10/10/[address] [address] Gilda De La Torre MD 09/26/2024 3:15 PM EDT Office Visit [address] [address] Jo Kauffman FNP UTI symptoms (Primary Dx); Slow transit constipation; Erythema intertrigo 09/26/2024 Orders Only [address] [address] Jo Kauffman FNP 09/26/2024 Travel 09/24/2024 Telephone [facility] [address] [place] [address] Toya Kyle, PharmD Results 09/24/2024 Travel 09/19/2024 2:00 PM EDT Office Visit [facility] [address] [place] [address] Gilda De La Torre MD Grief (Primary Dx); Chronic left shoulder pain; Chronic bilateral low back pain without sciatica; Unstable gait; Type 2 diabetes mellitus with hyperglycemia, with long-term current use of insulin (CMS/HCC); Slow transit constipation; Chronic schizoaffective schizophrenia (CMS/HCC); Dementia of frontal lobe type (CMS/HCC); Stage 3 chronic kidney disease, unspecified whether stage 3a or 3b CKD (CMS/HCC); Wound of right lower extremity, initial encounter; Dietary counseling; Exercise counseling; Type 2 diabetes mellitus with diabetic polyneuropathy, with long-term current use of insulin ([facility]); Frontal lobe dementia (CMS/HCC) 09/19/2024 Travel 09/17/2024 Telephone [facility] [address] [place] [address] Gilda De La Torre MD Chart Prep 09/17/2024 Refill [facility] [address] [place] [address] Hetal Connolly MD Chronic pain of right knee 09/17/2024 Refill [facility] [address] [place] [address] Gilda De La Torre MD Type 2 diabetes mellitus with other specified complication, with long-term current use of insulin ([facility]); Chronic pain of right knee 09/15/2024 Refill [facility] [address] [place] [address] Toya Kyle, Fay Type 2 diabetes mellitus with hyperglycemia, with long-term current use of insulin (CMS/HCC) 09/13/2024 Refill [facility] [address] [place] [address] Gilda De La Torre MD Chronic low back pain, unspecified back pain laterality, unspecified whether sciatica present; Low back pain, unspecified 09/12/2024 Telephone [facility] [address] [place] [address] Gilda De La Torre MD 09/07/2024 9:40 AM EDT Office Visit [facility] [address] [place] [address] Tushar Souza MD Dermatophytosis (Primary Dx) 09/07/2024 Travel 08/23/2024 Refill [facility] [address] [place] [address] Gilda De La Torre MD 08/13/2024 Telephone [facility] [address] [place] [phone] Toya Kyle, PharmD 08/10/2024 Telephone [facility] [address] [place] [phone] Gilda De La Torre MD Appointment Request 07/30/2024 Refill [facility] [address] [place] [phone] Gilda De La Torre MD Primary hypertension from Last 3 Months Immunizations Immunization Administration [...] Sign Reading Time Taken Comments Blood Pressure 124/60 10/15/2024 2:41 PM EDT Pulse 76 10/15/2024 2:41 PM EDT Temperature 36.2 C (97.1 F) 10/15/2024 2:41 PM EDT Respiratory Rate 20 10/15/2024 2:41 PM EDT Oxygen Saturation 98% 10/15/2024 2:41 PM EDT Inhaled Oxygen Concentration - - Weight 61.5 kg (135 lb 9.6 oz) 10/15/2024 2:41 P M EDT Height 152.4 cm (5') 10/15/2024 2:41 PM EDT Body Mass Index 26.48 10/15/2024 2:41 PM EDT Plan of Treatment Upcoming Encounters Date Type Department Care Team (Late st Contact Info) Description 11/07/2024 2:00 PM EDT Medication Management [facility] [address] [place] [address] Toya Kyle, PharmD [address] [place] [address] 01/30/2025 11:00 AM EST Office Visit [facility] [address] [place] [address] Meme Covington, OD [address] [place] [address] Health Maintenance Due Date Last Done Comments CT Colonography 1955 Dental Prophylaxis 1955 Dental X-Ray: Bitewings 1955 FIT DNA/Cologuard 1955 FIT 1955 FOBT 1955 Sigmoidoscopy 1955 Hepatitis C Screening 01/16/1974 COVID-19 Vaccine ( season) 2023 03/10/2022, 12/22/2020, 06/03/2020, Additional history exists Dental Oral Exam 10/01/2024 04/02/2024, 12/23/2022 Influenza Vaccine (#1) 2024 , 12/03/2022, 12/08/2021, Additional history exists Diabetes: Hemoglobin A1C 12/20/2024 025, 06/11/2024, 03/09/2024, Additional history exists Mammogram 03/15/2025 03/15/2024, 12/29, 03/11/2023, Additional history exists Depression Monitoring 04/17/2025 10/15/2024, 025 Lipid Panel 05/12/2025 05/12/2024, 12/29, 02/06/2021, Additional history exists Diabetes: Urine Protein Screening 05/14/2025 05/14/2024, 04/01/2023, 01/07/2023, Additional history exists Eye Exam 07/14/2025 07/15/2023, 06/28, 07/15/2023, Additional history exists Alcohol/Substance Use Screening 10/15/2025 10/15/2024 Diabetes: Foot Exam 10/15/2025 10/15/2024 SDOH Screening 10/15/2025 10/15/2024 Tobacco Screening 10/15/2025 10/15/2024 DTaP/Tdap/Td Vaccines (2 - Td or Tdap) 02/03/2027 02/03/2017, 12/29/2006, 11/26/1999 Dental X-Ray: Full Mouth 04/03/2027 04/02/2024, 11/29 Colonoscopy 05/22/2031 Colorectal Cancer Screening 05/22/2031 Hepatitis B Vaccines Completed 01/27/2021, 01/31/2019, 09/15/2015 Pneumococcal Vaccine: 50+ Years Completed 10/21/2021, 12/08/2015, 07/09/2007, Additional history exists Zoster Vaccines Completed 12/25/2021, 09/29, 02/03/2017 RSV Patients and Patients Aged 60 years [...] Procedure Name Priority Date/Time Associated Diagnosis Comments XR CERVICAL SPINE 3V Routine 10/15/2024 3:18 PM EDT Neck pain XR SHOULDER 2+ VIEWS LEFT Routine 10/15/2024 3:13 PM EDT Chronic left shoulder pain CULTURE, URINE, ROUTINE Routine 09/26/2024 6:32 PM EDT URINALYSIS, COMPLETE, WITH REFLEX TO CULTURE Routine 09/26/2024 3:59 PM EDT UTI symptoms POCT URINALYSIS DIPSTICK Routine 09/26/2024 3:49 PM EDT UTI symptoms POCT GLUCOSE Routine 09/19/2024 2:31 PM EDT Type 2 diabetes mellitus with hyperglycemia, with long-term current use of insulin ([facility]) POCT GLYCATED HEMOGLOBIN, TOTAL Routine 09/19/2024 2:29 PM EDT Type 2 diabetes mellitus with hyperglycemia, with long-term current use of insulin ([facility]) ALBUMIN, RANDOM URINE W/CREATININE Routine 05/14/2024 3:16 PM EDT LIPID PANEL, STANDARD Routine 05/12/2024 8:02 AM EDT Dyslipidemia PANORAMIC RADIOGRAPHIC IMAGE Routine 04/02/2024 3:00 PM EST PERIODIC ORAL EVALUATION - ESTABLISHED PATIENT Routine 04/02/2024 3:00 PM EST HM MAMMOGRAPHY Routine 03/15/2024 2:11 PM EST from Last 3 Months or Most Recently Relevant to Health Maintenance Results * XR CERVICAL SPINE 3V (10/15/2024 3:18 PM EDT) Anatomical Region Laterality Modality Abdomen Radiographic Ailyn ging 10/15/2024 3:1 8 PM EDT Narrative 10/15/2024 4:28 PM EDT [facility] [address] [place] [address] XRay Report Signed Patient: Celeste Cunha MR#: [id number] : 1955 Acct:[id number] Age/Sex: 69 / F ADM Date: 10/15/24 Loc: HO.HHCX Attending Dr: Naya Haywood NP Ordering Physician: NAYA HAYWOOD NP Date of Service: 10/15/24 Procedure(s): XR cervical spine 3V Accession Number(s): [id number] cc: Gilda De La Torre MD; NAYA HAYWOOD NP EXAMINATION: XR CERVICAL SPINE CLINICAL INFORMATION: fall, c/o neck pain COMPARISON: None available. TECHNIQUE: 3 views of the cervical spine were obtained. FINDINGS: There is a trace right convex scoliosis. There is a mild reversal of the normal lordosis centered at C4. There is no fracture, compression deformity, traumatic subluxation, or suspicious bone lesion. Craniocervical junction and C1-2 articulation appear intact and aligned. There is a 2 mm degenerative retrolisthesis of C5 on C6. There is severe disc degeneration at C5-6 and C6-7. There is normal facet alignment. Mild multilevel bilateral facet hypertrophic degenerative change. There is no prevertebral soft tissue swelling. There are carotid bulb calcifications bilaterally. Imaged lung apices are clear. XR/XR cervical spine 3V IMPRESSION: 1. No acute bony abnormalities of the cervical spine. 2. Moderate degenerative spondylosis most significant C5-6 and C6-7. Electronically signed by: Tramaine Purdy MD 10/15/2024 04:26 PM EDT RP Dictated By: Tramaine Purdy MD Signed By: <Electronically signed by Tramaine Purdy MD in OV> 10/15/24 1626 DD/ 1518 TD/TT: 10/15/24 1530 Financial Services Specialist: Procedure Note Donotuseinterpreter, Image - 10/15/[address] [address] XRay Report Signed Patient: Akiko Cunha#: [id number] : 6Acct:[id number] Age/Sex: 69 / FADM Date: 10/15/24 Loc: .HHX Attending Dr: Naya Haywood NP Ordering Physician: NAYA HAYWOOD NP Date of Service: 10/15/24 Procedure(s): XR cervical spine 3V Accession Number(s): [id number] cc: Gilda De La Torre MD; NAYA HAYWOOD NP EXAMINATION: XR CERVICAL SPINE CLINICAL INFORMATION: fall, c/o neck pain COMPARISON: None available. TECHNIQUE: 3 views of the cervical spine were obtained. FINDINGS: There is a trace right convex scoliosis. There is a mild reversal of the normal lordosis centered at C4. There is no fracture, compression deformity, traumatic subluxation, or suspicious bone lesion. Craniocervical junction and C1-2 articulation appear intact and aligned. There is a 2 mm degenerative retrolisthesis of C5 on C6. There is severe disc degeneration at C5-6 and C6-7. There is normal facet alignment. Mild multilevel bilateral facet hypertrophic degenerative change. There is no prevertebral soft tissue swelling. There are carotid bulb calcifications bilaterally. Imaged lung apices are clear. XR/XR cervical spine 3V IMPRESSION: 1. No acute bony abnormalities of the cervical spine. 2. Moderate degenerative spondylosis most significant C5-6 and C6-7. Electronically signed by: Tramaine Purdy MD 10/15/2024 04:26 PM EDT RP Dictated By: Tramaine Purdy MD Signed By: <Electronically signed by Tramaine Purdy MD in OV> 10/15/24 1626 DD/ 1518 TD/TT: 10/15/24 1530 Financial Services Specialist: Naya Haywood ANP IMG XR PROCEDURES Final Result * XR Shoulder 2+ Views Left (10/15/2024 3:13 PM EDT) Anatomical Region Laterality Modality Upper Extremities, Shoulder Left Radi ographic Imaging 10/15/2024 3:13 PM EDT Narrative 10/15/2024 4:26 PM EDT [address] [address] XRay Report Signed Patient: Celeste Cunha MR#: [id number] : 1955 Acct:[id number] Age/Sex: 69 / F ADM Date: 10/15/24 [facility]: Naya Haywood NP Ordering Physician: NAYA HAYWOOD NP Date of Service: 10/15/24 Procedure(s): XR shoulder LT min 2V Accession Number(s): [id number] cc: Gilda De La Torre MD; NAYA HAYWOOD NP EXAMINATION: XR SHOULDER, LEFT CLINICAL INFORMATION: fall, L shoulder pain acute on chronic COMPARISON: None available. TECHNIQUE: AP external rotation, Grashey, scapular Y, and axillary views of the left shoulder. FINDINGS: Normal bone mineralization. No fracture, dislocation, or suspicious bone lesion. Normal alignment. The glenohumeral joint demonstrates mild degenerative arthritis. The AC joint is normal. There is small to moderate size undersurface acromial spurring. The subacromial space is preserved. Remainder of the soft tissue and bony structures appear normal. XR/XR shoulder LT min 2V IMPRESSION: 1. No acute bony abnormalities of the left shoulder. 2. Mild degenerative glenohumeral joint arthritis. 3. Small to moderate sized subacromial spur. Electronically signed by: Tramaine Purdy MD 10/15/2024 04:23 PM EDT RP Dictated By: Tramaine Purdy MD Signed By: <Electronically signed by Tramaine Purdy MD in OV> 10/15/241622 DD/ 151 TD/TT: 10/15/24 1530 Financial Services Specialist: Procedure Note Jaynater, Image - 10/15/[address] [address] XRay Report Signed Patient: Akiko Cunha#: [id number] : 6Acct:[id number] Age/Sex: 69 / FADM Date: 10/15/24 Loc: HO.HHCX Attending Dr: Naya Haywood NP Ordering Physician: NAYA HAYWOOD NP Date of Service: 10/15/24 Procedure(s): XR shoulder LT min 2V Accession Number(s): [id number] cc: Gilda De La Torre MD; NAYA HAYWOOD NP EXAMINATION: XR SHOULDER, LEFT CLINICAL INFORMATION: fall, L shoulder pain acute on chronic COMPARISON: None available. TECHNIQUE: AP external rotation, Grashey, scapular Y, and axillary views of the left shoulder. FINDINGS: Normal bone mineralization. No fracture, dislocation, or suspicious bone lesion. Normal alignment. The glenohumeral joint demonstrates mild degenerative arthritis. The AC joint is normal. There is small to moderate size undersurface acromial spurring. The subacromial space is preserved. Remainder of the soft tissue and bony structures appear normal. XR/XR shoulder LT min 2V IMPRESSION: 1. No acute bony abnormalities of the left shoulder. 2. Mild degenerative glenohumeral joint arthritis. 3. Small to moderate sized subacromial spur. Electronically signed by: Tramaine Purdy MD 10/15/2024 04:23 PM EDT Dictated By: Tramaine Purdy MD Signed By: <Electronically signed by Tramaine Purdy MD in OV> 10/15/241622 DD/ 151 TD/TT: 10/15/24 1530 Financial Services Specialist: Naya Haywood ANP IMG XR PROCEDURES Final Result * Culture, Urine, Routine (09/26/2024 6:32 PM EDT) Urine Urine specimen obtained by clean catch procedure / Unknown 09/26/2024 6:32 PM EDT 09/26/2024 6:32 PM EDT Comment:[facility] - 09/28/2024 8:52 AM EDT Urine Culture Report Result Urine Culture 50,000 to 100,000 cfu/ml Urine Culture Mixed bacterial himanshu characteristic of Urine Culture urogenital contamination. Specimen Source: Urine clean catch Jo Kauffman [facility] MICROBIOLOGY - GENERAL ORD ERABLES Final Result [facility] [address], [place] [phone] * (ABNORMAL) Urinalysis, Complete, with Reflex to Culture (09/26/2024 3:59 PM EDT) Color Urine Yellow [facility] Appearance Urine Cloudy [facility] PH 7.0 5.0 - 9.0 [facility] Glucose Urine UA Negative Negative mg/dL [facility] Urine Blood Small (1+)(A) Negative [facility] Specific [place] - Urine <=1.005 1.005 - 1.025 [facility] Urine Protein Negative Neg-Trace mg/dL [facility] Urine Ketones Negative Negative mg/dL [facility] Nitrite Urine Negative Negative [facility] Leukocyte Esterase Urine Large (3+)(A) Negative [facility] RBC Urine 3-5(A) 0 - 2 /HPF [facility] Urine WBC 6-10(A) 0 - 5 /HPF [facility] Urine Squamous Epithelial Cell 3-5 0 - 2 /HPF [facility] Urine Bacteria 4+ None Seen [facility] Hyaline Casts, Urine 0-2 0 - 2 /LPF [facility] Urine 09/26/2024 3:59 PM EDT 09/26/2024 5:59 PM EDT Narrative [facility] - 09/26/2024 6:32 PM EDT Urine, Clean Catch Jo [facility] URINE ORDERABLES Final Res ult [facility] [address] [place] [phone] * (ABNORMAL) POCT Urinalysis (09/26/2024 3:49 PM EDT) Color, UA Yellow Clarity, UA Cloudy Glucose, UA Negative Bilirubin, UA Negative Ketones, UA Negative Spec Grav, UA 1.015 Blood, UA Positive(A) Negative, None Detected Comment:trace-intact pH, UA 6.5 Protein, UA Negative Urobilinogen, UA 0.2 Leukocytes, UA Many(A) Negative, Rare, Trace Comment:Large Nitrite, UA Negative Negative, None Detected Appearance, UA yellow QC Media Lot # [id number] Lot# Expiration Date 82 Urine 09/26/2024 3:49 PM EDT Jo [facility] POINT OF CARE TEST ENTER/EDIT ORDERABLES Final Result * POCT Glucose (09/19/2024 2:31 PM EDT) Glucose Blood, POC 70 60 - 200 mg/dL QC Media Lot # [id number] Lot# Expiration Date 72 Blood Capillary blood specimen / Unknown 09/19/2024 2:31 PM EDT Gilda Maynard MD POINT OF CARE TEST EN TER/EDIT ORDERABLES Final Result * (ABNORMAL) POCT HGB A1C (09/19/2024 2:29 PM EDT) Hemoglobin A1C 8.2(A) 4.0 - 5.7 % QC Media Lot # [id number] Lot# Expiration Date 427 Blood 09/19/2024 2:29 PM EDT us Gilda Maynard MD POINT OF CARE TEST EN TER/EDIT ORDERABLES Final Result * (ABNORMAL) Albumin, Random Urine W/Creatinine (05/14/2024 3:16 PM EDT) Creatinine, Urine 33.29 mg/dL [facility] Microalbumin Urine 46.0 mg/L [facility] Microalbum Creatinine Ratio Ur 138.1(H) <30 ug/mg cr [facility] Comment:Albumin/Creatinine R atio Reference Ranges: Normal: < 30 ug/mg creatinine Microalbuminuria: 30 - 300 ug/mg creatinineClinical Albuminuria: > 300 ug/mg creatinine 05/14/2024 3:16 PM EDT 05/14/2024 4:40 PM EDT us Gilda Maynard MD LAB URINE ORDERABLES Final Result Performing Organization Address City/State/[facility] Co de Phone Number [facility] [address] [place] [phone] * Lipid Panel, Standard (05/12/2024 8:02 AM EDT) Triglycerides 59 <150 mg/dL [facility] Comment:Desirable Triglyceri de: less than 150 mg/dLBorderline High Triglyceride 150-199 mg/dLHigh Triglyceride: 200-499 mg/dLVery High Triglyceride: greater than or equal to 5OO mg/dL Cholesterol 135 <200 mg/dL [facility] Comment:Desirable Cholestero l: less than 200 mg/dLBorderline High Cholesterol: 200-239 mg/dLHigh Cholesterol: greater than 239 mg/dL LDL Cholesterol Calculated 68 <100 mg/dL [facility] Comment:Desirable LDL: less than 100 mg/dLNear Optimal/Above Optimal LDL: 110- 129 mg/dLBorderline High LDL: 130-159 mg/dLHigh LDL: 160-189 mg/dLVery High LDL: greater than or equal to 190 mg/dL HDL Cholesterol 56 >40 mg/dL [facility] Comment:Desirable HDL: great er than 40 mg/dL Note: This HDL assay may give artificially low results in patients with liver disease. Blood Venous blood specimen / Unknown 05/12/2024 8:02 AM EDT 05/12/2024 8:02 AM EDT us Gilda Maynard MD LAB BLOOD ORDERABLES Final Result [facility] [address] [place] [phone] * Hm Mammography (03/15/2024 2:11 PM EST) Anatomical Region Laterality Modality Other us Historical Provider HEALTH MAINTENANCE Final Result from Last 3 Months or Most Recently Relevant to Health Maintenance Insurance * Guarantor: Celeste Cunha Account Type Relation to Patient Date of Phone Billing Address Personal/Family Self [address] [place] [address] [facility] [employer] (HMO D-SNP) [place] [phone] * Guarantor: Celeste Cunha Account Type Relation to Patient Date of Phone Billing Address Dental Self [address] [place] [address] [facility] Care Teams Fleet Administrator Relationship Specialty Start Date End Date Gilda De La Torre MD [address] [place] [address] PCP - General Family Medicine 10/25/21 Toya Kyle, RosaD [address] [place] [address] Pharmacist Internal Medicine 11/06/23
--- OUTSIDE RECORDS SUMMARY | 2024-10-28 09:39 | XMS_ITS | Encounter Summary ---
Author Organization [employer] Address [address] [place] [address] Care Team Providers Care Cab Supervisor Name Role Phone Gilda De La Torre MD Primary Care Provide r Toya Kyle PharmD Unavailable [phone]- [phone] Reason for Visit * Reason Onset Date Comments Appointment Request 08/10/2024 Encounter Details Date Type Department Care Team ([facility] st Contact Info) Description 08/10/2024 Telephone [facility] [address] [place], [place] [phone] Gilda De La Torre MD [address] [place], [place] [phone] Appointment Request Social History Tobacco Use Types Packs/Day Years [...] encounter Miscellaneous Notes * Telephone Encounter - Ruthy Abbott - 08/10/2024 1:05 PM EDT TC from pt requesting a call back to reschedule CDTM apt on 08/22/24 Contact pt at [phone] documented in this encounter Plan of Treatment Upcoming Encounters Date Type Department Care Team (Late st Contact Info) Description 11/07/2024 2:00 PM EDT Medication Management [facility] [address] [place] [address] Toya Kyle, PharmD [address] [place] [address] 01/30/2025 11:00 AM EST Office Visit [facility] [address] [place], [place] [phone] Adria, Meme, OD [address] [place] [address] documented as of this encounter Visit Diagnoses Not on filedocumented in this encounter Additional Health Concerns Assessment Noted Time PHQ-9 Depression Total Score: 0 09/23/19 3:00 PM EDT documented as of this encounter Care Teams Cab Supervisor Relationship Specialty Start Date End Date Gilda De La Torre MD [address] [place] [address] PCP - General Family Medicine 10/25/21 Toya Kyle, RosaD [address] [place], [place] [phone] Pharmacist Internal Medicine 11/06/23 documented as of this encounter
--- OUTSIDE RECORDS SUMMARY | 2024-10-28 09:39 | XMS_ITS | Encounter Summary ---
Author Organization [employer] Address [address] [place] [address] Care Team Providers Care Stable Manager Name Role Phone Gilda De La Torre MD Primary Care Provide r Toya Kyle PharmD Unavailable [phone]- [phone] Reason for Visit * Reason Comments Med Refill Encounter Details Date Type Department Care Team (Late st Contact Info) Description 03/08/[address] [facility] [address] [place], [place] [phone] Gilda De La Torre MD [address] [place], [place] [phone] Primary hypertension Social History Tobacco Use Types [...] Description 11/07/2024 2:00 PM EDT Medication Management [facility] [address] [place] [address] Toya Kyle, PharmD [address] [place] [address] 01/30/2025 11:00 AM EST Office Visit [facility] OPTOMETRY [address] [place] [address] Meme Covington, OD [address] [place] [address] documented as of this encounter Visit Diagnoses Diagnosis Primary hypertension Unspecified essential hypertension documented in this encounter Additional Health Concerns Assessment Noted Time PHQ-9 Depression Total Score: 0 09/23/19 3:00 PM EDT documented as of this encounter Care Teams Stable Manager Relationship Specialty Start Date End Date Barciona Maynard, Mandy, MD [address] [place] [address] PCP - General Family Medicine 10/25/21 Toya Kyle, RosaD [address] [place] [address] Pharmacist Internal Medicine 11/06/23 documented as of this encounter
--- OUTSIDE RECORDS SUMMARY | 2024-10-28 09:39 | XMS_ITS | Encounter Summary ---
Author Organization [employer] Address [address] [place] [address] Care Team Providers Care Poultry Grader Name Role Phone Gilda De La Torre MD Primary Care Provide r Toya Kyle PharmD Unavailable [phone]- [phone] Encounter Details Date Type Department Care Team (Late st Contact Info) Description 11/02/2023 Telephone [facility] [address] [place] [address] Toya Kyle, PharmD [address] [place] [address] Social History Tobacco Use Types Packs/Day Years [...] for this patient to enroll care in [facility] - Diabetes clinic. Please send at your earliest convenience. documented in this encounter Plan of Treatment Upcoming Encounters Date Type Department Care Team (Late st Contact Info) Description 11/07/2024 2:00 PM EDT Medication Management [facility] [address] [place], [place] [phone] Toya Kyle PharmD [address] [place] [address] 01/30/2025 11:00 AM EST Office Visit [facility] [address] [place], [place] [phone] Meme Covington, OD [address] [place] [address] documented as of this encounter Visit Diagnoses Diagnosis Type 2 diabetes mellitus with hyperglycemia, with long-term current use of insulin ([facility])- Primary documented in this encounter Additional Health Concerns Assessment Noted Time PHQ-9 Depression Total Score: 0 09/23/19 24 3:00 PM EDT documented as of this encounter Care Teams Poultry Grader Relationship Specialty Start Date End Date Gilda De La Torre MD [address] [place] [address] PCP - General Family Medicine 10/25/21 Toya Kyle PharmD [address] [place] [phone] Pharmacist Internal Medicine 11/06/23 documented as of this encounter
--- OUTSIDE RECORDS SUMMARY | 2024-10-28 09:39 | XMS_ITS | Encounter Summary ---
Author Organization [employer] Address [address] 7[address] [place] [address] Care Team Providers Care Dock Coordinator Name Role Phone Gilda De La Torre MD Primary Care Provide r Toya Kyle PharmD Unavailable [phone]- [phone] Reason for Visit * Reason Onset Date Comments [employer] ATTENDANT Hours and VNA Services 04/14/2023 Encounter Details Date Type Department Care Team (Late st Contact Info) Description 04/14/2023 Telephone [facility] [address] [place], [place] [phone] Gilda De La Torre MD [address] [place], [place] [phone] [employer] ATTENDANT Hours and VNA Services Social History Tobacco [...] - 05/19/2023 1:29 PM EDT Tc from [facility] with ICP requesting status of increase on [employer]ATEHOU[employer] ATTENDANT hours request. Please contact at [phone] * Telephone Encounter - Leyla Peacock - 05/04/2023 3:56 PM EST Tc from [facility] ICP requesting status on [employer]ATEHOUSE ATTENDANT hours and life alert request. Please contact at [phone] * Telephone Encounter - Joy Winn - 04/14/2023 4:32 PM EST Tc from [place] with [employer] stating that pt is requiring more GATEHOUSE ATTENDANT Hours and VNA Orders. Please contact Wendy @ [phone] documented in this encounter Plan of Treatment Upcoming Encounters Date Type Department Care Team (Late st Contact Info) Description 11/07/2024 2:00 PM EDT Medication Management [facility] [address] [place] [address] Toya Kyle, PharmD [address] [place] [address] 01/30/2025 11:00 AM EST Office Visit [facility] OPTOMETRY [address] [place], [place] [phone] Meme Covington, OD [address] [place] [address] documented as of this encounter Visit Diagnoses Not on filedocumented in this encounter Additional Health Concerns Assessment Noted Time PHQ-9 Depression Total Score: 14 023 10:32 AM EDT documented as of this encounter Care Teams Dock Coordinator Relationship Specialty Start Date End Date Gilda De La Torre MD [address] [place] [address] PCP - General Family Medicine 10/25/21 Toya Kyle, RosaD [address] [place], [place] [phone] Pharmacist Internal Medicine 11/06/23 documented as of this encounter
--- OUTSIDE RECORDS SUMMARY | 2024-10-28 09:39 | XMS_ITS | Encounter Summary ---
Author Organization [employer] Address [address] [place] [address] Care Team Providers Care General Matcher Name Role Phone Gilda De La Torre MD Primary Care Provide r Toya Kyle PharmD Unavailable [phone] Reason for Visit * Reason Comments Med Refill Encounter Details Date Type Department Care Team (Late st Contact Info) Description 10/27/2024 Refill [facility] [address] [place], [place] [phone] Gilda De La Torre MD [address] [place], [place] [phone] Type 2 diabetes mellitus with hyperglycemia, with long-term current use of insulin ([facility]) Social History Tobacco Use Types Packs/Day Years [...] 2:00 PM EDT Medication Management [facility] [address] [place] [address] Toya Kyle, PharmD [address] [place] [address] 01/30/2025 11:00 AM EST Office Visit [facility] OPTOMETRY [address] [place] [address] Meme Covington, OD [address] [place] [address] documented as of this encounter Visit Diagnoses Diagnosis Type 2 diabetes mellitus with hyperglycemia, with long-term current use of insulin ([facility]) documented in this encounter Additional Health Concerns Assessment Noted Time PHQ-9 Depression Total Score: 10 025 2:47 PM EDT documented as of this encounter Care Teams General Matcher Relationship Specialty Start Date End Date Gilda De La Torre MD [address] [place] [address] PCP - General Family Medicine 10/25/21 Toya Kyle, RosaD [address] [place] [address] Pharmacist Internal Medicine 11/06/23 documented as of this encounter
--- OUTSIDE RECORDS SUMMARY | 2024-10-28 09:39 | XMS_ITS | Encounter Summary ---
Author Organization [employer] Address [address] [place] [address] Care Team Providers Care Delivery Helper Name Role Phone Gilda De La Torre MD Primary Care Provide r Toya Kyle PharmD Unavailable [phone]- [phone] Encounter Details Date Type Department Care Team (Late st Contact Info) Description 03/24/2024 Orders Only [facility] [address] [place], [place] [phone] Provider, MD Jose J Social History Tobacco [...] Description 11/07/2024 2:00 PM EDT Medication Management [facility] [address] [place] [address] Toya Kyle, PharmD [address] [place] [address] 01/30/2025 11:00 AM EST Office Visit [facility] [address] [place] [address] AdriaMeme gee, OD [address] [place] [address] documented as of this encounter Procedures Procedure [...] documented as of this encounter Care Teams Delivery Helper Relationship Specialty Start Date End Date Gilda De La Torre MD [address] [place] [address] PCP - General Family Medicine 10/25/21 Toya Kyle, Fay [address] [place] [address] Pharmacist Internal Medicine 11/06/23 documented as of this encounter
--- OUTSIDE RECORDS SUMMARY | 2024-10-28 09:39 | XMS_ITS | Encounter Summary ---
Author Organization [employer] Address [address] [place] [address] Care Team Providers Care Diploma Pharmacy Technician Name Role Phone Gilda De La Torre MD Primary Care Provide r Toya Kyle PharmD Unavailable [phone]- [phone] Reason for Visit * Reason Comments Med Refill Encounter Details Date Type Department Care Team (Late Contact Info) Description 10/08/2022 Refill [facility] [address] [place] [address] Gilda De La Torre MD [address] [place], [place] [phone] Social History Tobacco Use Types Packs/Day Years [...] Department Care Team (Late Contact Info) Description 11/07/2024 2:00 PM EDT Medication Management [facility] [address] [place] [address] Toya Kyle, PharmD [address] [place] [address] 01/30/2025 11:00 AM EST Office Visit [facility] OPTOMETRY [address] [place], [place] [phone] Meme Covington, OD [address] [place] [address] documented as of this encounter Visit Diagnoses Not on filedocumented in this encounter Additional Health Concerns Assessment Noted Time PHQ-9 Depression Total Score: 14 023 10:32 AM EDT documented as of this encounter Care Teams Diploma Pharmacy Technician Relationship Specialty Start Date End Date Gilda De La Torre MD [address] [place], [place] [phone] PCP - General Family Medicine 10/25/21 Toya Kyle PharmD [address] [place] [address] Pharmacist Internal Medicine 11/06/23 documented as of this encounter
--- NOTE | 2024-10-28 09:49 | ECG_ITS ---
Test Reason : FALL Blood Pressure : */* mmHG Vent. Rate : 76 BPM Atrial Rate : 76 BPM P-R Int : 170 ms QRS Dur : 126 ms QT Int : 410 ms P-R-T Axes : 70 -51 50 degrees QTcB Int : 461 ms Normal sinus rhythm Right bundle branch block Left anterior fascicular block Bifascicular block Minimal voltage criteria for LVH, may be normal variant ( R in aVL ) Abnormal ECG When compared with ECG of 05-Aug-2023 10:14, No significant change was found Referred By: Chris Galvez Electronically Signed By: AISHWARYA MARTE MD
--- NOTE | 2024-10-28 10:02 | ED_ITS ---
HPI - General Adult General Chief complaint: Fall Stated complaint: FALL WITH HEADSTRIKE Time Seen by Provider: 10/28/24 09:16 Source: patient, RN notes reviewed, old records reviewed and level glass vial filler Mode of arrival: EMS Limitations: language barrier and other (The patient is a poor historian) History of Present Illness ED Provider: Leonor HPI narrative: 69-year-old female with a past medical history significant for dementia, depression, anxiety, schizoaffective disorder, PTSD, coronary artery disease, type 2 diabetes, chronic kidney disease presents for evaluation after a fall. The patient is a somewhat poor historian pain She states that around 1:00 a.m. she was looking for a cigarette when she reached for something which caused her to lose her balance and fall over. The patient believes that she also lost consciousness. She states that she was unconscious for about an hour. She states that she is able to get up to a seated position but was not able to get to her feet She lives alone She came to the ER approximately 8 hours after her reported fall The patient complains of headache, neck pain, back pain, pain and weakness in her legs She reports that she has chronic difficulty lifting her left arm above her shoulder The patient also complains of chest pain it is unclear if she had any chest pain prior to falling or after the fall Related Data Home Medications ?Medication ?Instructions ?Recorded ?Confirmed atorvastatin 80 mg tablet 80 mg PO DAILY 01/19/2409/30 buspirone 10 mg tablet 10 mg PO TID 01/19/24 furosemide 20 mg tablet 20 mg PO DAILY 01/19/2409/30 lisinopril 10 mg tablet 10 mg PO DAILY 01/19/2409/30 metformin 500 mg tablet 500 mg PO BID 01/19/2410/28 metoprolol tartrate 25 mg tablet 25 mg PO BID 01/19/24 10/28/24 acetaminophen 650 mg 1,300 mg PO BID PRN mild cyrus n 01/20/24 10/28/24 tablet,extended release aripiprazole 20 mg tablet 20 mg PO QAM 01/20/24 gabapentin 100 mg capsule 200 mg PO QAM 01/20/2410/28 insulin lispro 100 unit/mL 1 sliding scale dose subcut 01/20/24 10/28/24 subcutaneous pen (Humalog KwikPen USEASDIRECTD (U-100) Insulin) lamotrigine 200 mg tablet 200 mg PO QAM 01/20/2410/28 omeprazole 20 mg capsule,delayed 20 mg PO BID 01/20/24 10/28/24 release sertraline 100 mg tablet 150 mg PO QAM 01/20/2410/28 dulaglutide 0.75 mg/0.5 mL 1.5 mg subcut QWEEK 07/18/ 5 10/28/24 subcutaneous pen injector (Trulicity) Previous Rx's ?Medication ?Instructions ?Recorded lancets 28 gauge (FreeStyle #100 ea 10/09/20 Lancets) pen needle, diabetic 32 gauge x #100 ea 01/05/22 (Unifine Pentips) docusate sodium 100 mg capsule 200 mg (2 x 100 mg) PO BEDTIME 05/19/22 #180 caps flash glucose scanning reader #1 ea 06/16/22 (FreeStyle Ni 2 [place]) flash glucose sensor (FreeStyle #2 kits 07/21/23 Ni 2 Sensor kit) blood sugar diagnostic (FreeStyle #100 ea 08/04/23 Lite Strips) blood-glucose meter (FreeStyle #1 ea 08/04/23 Lite Meter kit) Allergies Allergy/AdvReac Type Severity Reaction Status Date / Time duloxetine (Cymbalta) Allergy Unknown Unknown Verified 10/28/24 09:25 hydroxyzine Allergy Unknown unknown Verified 10/28/24 09:25 risperidone Allergy Unknown Unknown Verified 10/28/24 09:25 trazodone Allergy Unknown Unknown Verified 10/28/24 09:25 quetiapine (From SEROQUEL) AdvReac Severe Acute Verified 10/28/24 09:25 Dystonic reaction Review of Systems 2 Constitutional: Constitutional: Reports as per HPI, Denies chills, Denies fatigue, Denies fever(s), Reports headache(s) and Reports weakness ENT: Reports headache(s) Cardiovascular: Cardiovascular: Denies dyspnea Respiratory: Respiratory: Denies cough and Denies dyspnea Gastrointestinal: Gastrointestinal: Denies abdominal pain, Denies constipation and Denies vomiting Genitourinary: Genitourinary: Denies dysuria Musculoskeletal: Musculoskeletal: Reports arthralgias and Reports limited range of motion Neurologic: Reports headache(s), Denies focal weakness and Reports weakness Endocrine: Endocrine: Denies fatigue PMFSH Past Medical History Medical History Breast calcification, left Disc degeneration, lumbar Dermatophytosis Dermatitis Joint pain Depression with anxiety Schizoaffective disorder PTSD (post-traumatic stress disorder) Dementia Smoking CAD (coronary artery disease) Type 2 diabetes mellitus with chronic kidney disease Chronic kidney disease, stage 3 unspecified Type 2 diabetes mellitus with diabetic polyneuropathy Essential hypertension Dyslipidemia Diabetes mellitus with hyperglycemia Surgical History Hx of colonoscopy Hx of cataract surgery Hx of tubal ligation Hx of section Family History Family History Father No problems noted. Mother No problems noted. Social History Social History Household Members: None Household Members Other:: has CHD Services Housing: Apartment Do you presently have visiting nurse or other home services: Yes Unable to assess alcohol history related to: Unknown Alcohol intake: former Patient Tobacco Use Status: Current everyday Tobacco user Tobacco use type: Cigarette Cigarette Packs Per Day: 1 Cigarettes Per Day: 4 Second Hand Smoke Exposure: No Advance Directives: No Advance Directives Information Provided: No Advance Directives Date on File: 09/30/20 service: No Sexual orientation: Straight/Heterosexual Physical Exam ED Vital Signs: Vital Signs - 24 hr 10/28/24 13:14 10/28/24 16:36 10/28/24 18:39 Temperature 97.2 F 98.2 F 97.0 F Pulse Rate 97 75 97 Respiratory Rate 16 18 18 Blood Pressure 159/68 H 149/53 H 163/73 H Pulse Oximetry 97 98 95 Oxygen Delivery Method Room Air Room Air Room Air 10/28/24 19:31 10/29/24 06:00 Temperature 98.2 F 97.4 F Pulse Rate 73 67 Respiratory Rate 20 16 Blood Pressure 147/53 H 135/68 Pulse Oximetry 95 100 Oxygen Delivery Method Room Air Room Air BMI result Body Mass Index 27.8 Const General: healthy appearing, comfortable, no acute distress, alert and awake Nutritional Appearance: well nourished HENMT Head: Yes normocephalic and Yes atraumatic Eyes Eyelids: Yes eyelids normal Conjunctivae: conjunctivae normal Sclerae: sclerae normal Corneas: corneas normal Pupils: Equal, round and reactive pupils present EOM: EOMs intact bilaterally Resp Effort & Inspection: normal respiratory effort, able to speak in complete sentences and not labored Cardio Rate: regular rate Rhythm: regular rhythm GI Inspection: No distended Palpation (GI): Soft to palpation, not firm, nontender, no guarding and not rigid Back/Spine/Pelvis Other: The patient is on a hard C-collar but does have C-spine tenderness on exam Skin General skin exam: elasticity normal Neuro Cranial nerves: Yes Equal, round and reactive pupils present and Yes Bilaterally intact EOM present Extrem Other: The patient has no tenderness with manipulation of the hips bilaterally, she has no pain with passive range of motion of the lower extremities bilaterally. The patient has significantly reduced range of motion with flexion of the lower extremities bilaterally at the waist. She is only able to lift each leg off the bed about an inch or 2 Course Course Course Narrative: 10/29/24 0809 JANUARY Balderrama: Physician observation continued, no overnight events reported by nursing. Vitals stable. following for disposition. 10/29/24 12:58 JANUARY Balderrama: Per Airam from , patient declining STR. Will be discharged home with VNA. Observation care revealed that patient does not meet medical necessity for hospitalization. Final disposition discussed with patient. The patient completed observation care at 12:58 on 10/29/24. Reevaluation(s) Reevaluation #1: Patient was medically cleared by previous provider. Unremarkable workup. She has sustained multiple falls in the past few weeks. At this time physical therapy and case management ordered. Patient will be placed into observation to allow more time for evaluation by physical therapy and case management Time: 13:15 Medications Administered Generic Name Dose Route Start Last Admin Trade Name Freq PRN Reason Stop Dose Admin Acetaminophen 975 mg 10/28/24 18:54 10/28/24 21:57 Acetaminophen 325 Mg Tablet PO 975 mg BID PRN Administration mild pain Aripiprazole 20 mg 10/28/24 18:15 10/29/24 09:27 Aripiprazole 20 Mg Tablet PO 20 mg DAILY DELMER Administration Atorvastatin Calcium 80 mg 10/29/24 09:00 10/29/24 08:28 Atorvastatin Calcium 80 Mg Tablet PO 80 mg DAILY DELMER Administration Buspirone HCl 10 mg 10/28/24 21:00 10/29/24 08:28 Buspirone Hcl 10 Mg Tablet PO 10 mg TID DELMER Administration Docusate Sodium 200 mg 10/28/24 21:00 10/28/24 21:57 Docusate Sodium 100 Mg Capsule PO 200 mg BEDTIME DELMER Administration Furosemide 20 mg 10/29/24 09:00 10/29/24 08:28 Furosemide 20 Mg Tablet PO 20 mg DAILY DELMER Administration Protocol Gabapentin 200 mg 10/28/24 18:15 10/29/24 08:28 Gabapentin 100 Mg Capsule PO 200 mg DAILY DELMER Administration Insulin Human Lispro 0 unit 10/28/24 21:00 10/29/24 11:58 Insulin Lispro 100 Unit/Ml 3 Ml Vial SUBCUT 4 unit Q[facility]ACHS [facility] Administration Protocol Lamotrigine 200 mg 10/28/24 18:15 10/29/24 08:28 Lamotrigine 100 Mg Tablet PO 200 mg DAILY DELMER Administration Lisinopril 10 mg 10/29/24 09:00 10/29/24 09:27 Lisinopril 10 Mg Tablet PO 10 mg DAILY DELMER Administration Protocol Metformin HCl 500 mg 10/28/24 21:00 10/29/24 08:28 Metformin Hcl 500 Mg Tablet PO 500 mg BID DELMER Administration Metoprolol Tartrate 25 mg 10/28/24 21:00 10/29/24 09:27 Metoprolol Tartrate 25 Mg Tablet PO 25 mg BID DELMER Administration Protocol Omeprazole 20 mg 10/28/24 21:00 10/29/24 05:53 Omeprazole 20 Mg Capsule. PO 20 mg BID@0630,1630 DELMER Administration Sertraline HCl 150 mg 10/28/24 18:15 10/29/24 08:28 Sertraline Hcl 50 Mg Tablet PO 150 mg DAILY DELMER Administration Discontinued Medications Generic Name Dose Route Start Last Admin Trade Name Freq PRN Reason Stop Dose Admin Sodium Chloride 500 mls @ 500 mls/hr 10/28/24 10:38 10/28/24 13:05 Ns IV 10/28/24 11:37 Infused .Q1H STA Infusion Medical Decision Making Medical Decision Making MDM Narrative: 69-year-old female presents for evaluation after a fall that reportedly happened about 8 hours prior to arrival. She states that she was on the ground. She reports she was able to get up but not to her feet, she got into a seated position. It is unclear if she was sitting down for the last 8 hours. For this reason we will get basic labs in his CPK. We will get a CT scan of the brain, cervical spine. X-ray of the pelvis and chest x-ray given the fall she does complain of chest pain. EKG does not show any ischemic changes compared to her previous. Differential Diagnosis Differential Diagnoses: The differential diagnosis associated with the presentation includes Weakness Failure to thrive Fall Intracranial hemorrhage Cervical fracture Rib fracture Pneumothorax Pelvic fracture Lab Data MDM Lab Attestation statement: I reviewed the patient's lab results. Mild leukocytosis to 12.5 of unclear significance. The patient is signed has a mild normocytic anemia with a hemoglobin 11.0 and a hematocrit of 32.7. This is essentially similar to her most recent labs from July of 2023. Chemistries are significant for a random glucose of 126, the patient has a history of diabetes there was no evidence of DKA. AST of 34 is just above normal limits, again unclear significance, the patient has no abdominal pain or tenderness on exam. There was no vomiting or diarrhea. The patient's CK is elevated to 433. This is not indicative of rhabdomyolysis but she may have been on the ground for several hours. We will treat with IV fluids 10/28/24 10:13 10/28/24 10:13 Labs: Lab Results 10/28/24 10/28/24 10/28/24 Range/Units 10:13 12:33 13:33 WBC 12.5 H (4.8-10.8) X10*3/uL RBC 4.04 L (4.20-5.50) X10*6/uL Hgb 11.0 L (12.0-16.0) g/dl Hct 32.7 L (37.0-47.0) % MCV 80.9 (80.0-98.0) fL MCH 27.2 (27.0-33.0) pg MCHC 33.6 (31.0-35.0) g/dl RDW 14.2 (11.0-16.0) % Plt Count 206 (160-400) X10*3/uL MPV 11.3 (9.4-12.3) fL Immature Gran % (Auto) 0.2 (0.0-0.4) % Neut % (Auto) 66.9 (45-73) % Lymph % (Auto) 24.0 (20-40) % [place] % (Auto) 7.5 (2-11) % Eos % (Auto) 1.0 (0-4) % Baso % (Auto) 0.4 (0-2) % Lymph # (Auto) 3.0 (1.2-4.9) X10*3/uL [place] # (Auto) 0.9 (0.1-1.2) X10*3/uL Eos # (Auto) 0.1 (0.0-0.4) X10*3/uL Baso # (Auto) 0.1 (0.0-0.2) X10*3/uL Abs Immat Gran (auto) 0.02 (0.00-0.03) X10*3/uL Absolute Neuts (auto) 8.4 H (2.0-8.3) x10*3/uL Absolute Nucleated RBC 0.000 (0.0-0.012) X10*3/uL Nucleated RBC % (auto) 0.0 (0.0-0.2) /100WBC Sodium 137 (135-145) mmol/L Potassium 4.1 (3.3-5.1) mmol/L Chloride 104 (96-108) mmol/L Carbon Dioxide 23 (22-29) mmol/L Anion Gap 14 (12-20) BUN 16 (9-16) mg/dL Creatinine 0.68 (0.5-1.4) mg/dL Estim Creat Clear Calc 66.4 Estimated GFR > 60 POC Glucose (60-115) mg/dL Random Glucose 126 H (60-115) mg/dL Calcium 9.7 (8.4-10.2) mg/dL Total Bilirubin 0.3 (0.0-1.0) mg/dL AST 34 H (5-31) U/L ALT 24 (0-31) U/L Alkaline Phosphatase 89 (39-117) U/L Total Creatine Kinase 433 H (26-140) U/L Troponin I High Sens 5.4 D (<3.5-17.0) ng/L Total Protein 7.5 (6.5-8.0) g/dL Albumin 4.2 (3.5-5.0) g/dL Urine Color Yellow Yellow Urine Appearance Clear Clear Urine pH 6.5 6.5 (5.0-9.0) Ur Specific [place] 1.010 1.010 (1.005-1.025) Urine Protein Negative Negative (Neg-Trace) mg/dL Urine Glucose (UA) Negative Negative (Negative) mg/dL Urine Ketones Negative Negative (Negative) mg/dL Urine Blood Negative Negative (Negative) Urine Nitrite Negative Negative (Negative) Ur Leukocyte Esterase Trace H Trace H (Negative) Urine RBC 0-2 0-2 (0-2) /HPF Urine WBC 0-5 0-5 (0-5) /HPF Ur Squamous Epith Cells 0-2 0-2 (0-2) /HPF Urine Bacteria None Seen None Seen (None Seen) Hyaline Casts 0-2 0-2 (0-2) /LPF 10/28/24 10/29/24 10/29/24 Range/Units 21:04 07:24 11:08 WBC (4.8-10.8) X10*3/uL RBC (4.20-5.50) X10*6/uL Hgb (12.0-16.0) g/dl Hct (37.0-47.0) % MCV (80.0-98.0) fL MCH (27.0-33.0) pg MCHC (31.0-35.0) g/dl RDW (11.0-16.0) % Plt Count (160-400) X10*3/uL MPV (9.4-12.3) fL Immature Gran % (Auto) (0.0-0.4) % Neut % (Auto) (45-73) % Lymph % (Auto) (20-40) % [place] % (Auto) (2-11) % Eos % (Auto) (0-4) % Baso % (Auto) (0-2) % Lymph # (Auto) (1.2-4.9) X10*3/uL [place] # (Auto) (0.1-1.2) X10*3/uL Eos # (Auto) (0.0-0.4) X10*3/uL Baso # (Auto) (0.0-0.2) X10*3/uL Abs Immat Gran (auto) (0.00-0.03) X10*3/uL Absolute Neuts (auto) (2.0-8.3) x10*3/uL Absolute Nucleated RBC (0.0-0.012) X10*3/uL Nucleated RBC % (auto) (0.0-0.2) /100WBC Sodium (135-145) mmol/L Potassium (3.3-5.1) mmol/L Chloride (96-108) mmol/L Carbon Dioxide (22-29) mmol/L Anion Gap (12-20) BUN (9-16) mg/dL Creatinine (0.5-1.4) mg/dL Estim Creat Clear Calc Estimated GFR POC Glucose 162 H 100 208 H (60-115) mg/dL Random Glucose (60-115) mg/dL Calcium (8.4-10.2) mg/dL Total Bilirubin (0.0-1.0) mg/dL AST (5-31) U/L ALT (0-31) U/L Alkaline Phosphatase (39-117) U/L Total Creatine Kinase (26-140) U/L Troponin I High Sens (<3.5-17.0) ng/L Total Protein (6.5-8.0) g/dL Albumin (3.5-5.0) g/dL Urine Color Urine Appearance Urine pH (5.0-9.0) Ur Specific [place] (1.005-1.025) Urine Protein (Neg-Trace) mg/dL Urine Glucose (UA) (Negative) mg/dL Urine Ketones (Negative) mg/dL Urine Blood (Negative) Urine Nitrite (Negative) Ur Leukocyte Esterase (Negative) Urine RBC (0-2) /HPF Urine WBC (0-5) /HPF Ur Squamous Epith Cells (0-2) /HPF Urine Bacteria (None Seen) Hyaline Casts (0-2) /LPF Independent Interpretation I performed an independent interpretation of an: EKG (Normal sinus rhythm with a rate of 76 beats minute. There was a right bundle branch block, left anterior fascicular block, unchanged from previous dated July of 2023) Discharge Plan Discharge Clinical Impression: Concussion without loss of consciousness, Fall Patient Disposition: Home, Self-Care Instructions: Concussion (ED), Fall Prevention (ED) Additional Instructions: You were evaluated in the emergency department for injuries after a fall. You were diagnosed with a concussion. You declined short-term rehab and are being discharged home with visiting nurse services. We recommend that you follow-up with your primary care provider this week. Return to the emergency department if you develop confusion, difficulty performing everyday tasks, persistent nausea and vomiting, worsening headache, difficulty walking or any other new or concerning symptoms. Prescriptions: No Action (DME) pen needle, diabetic [Unifine Pentips] 32 gauge x 5/32 needle 1 ea miscellaneous TID Qty: 100 1RF Rx Instructions: 4x daily (DME) FreeStyle Ni 2 Sensor Kit See Rx Instructions .ROUTE .COMPLEX Qty: 2 5RF Dose Instruction: As directed change every 14 days Rx Instructions: As directed change every 14 days (DME) FreeStyle Lite Strips Strip See Rx Instructions .Route Qty: 100 5RF Rx Instructions: Tests 4X/day (DME) blood-glucose meter [FreeStyle Lite Meter] Kit See Rx Instructions .ROUTE .MEDSUPPLY Qty: 1 0RF Rx Instructions: As directed 2x/day (DME) lancets [FreeStyle Lancets] 28 gauge misc 1 gauge topical TID Qty: 100 11RF acetaminophen 650 mg tablet extended release 1,300 mg PO BID PRN (Reason: mild pain) Trulicity 0.75 mg/0.5 mL pen injector 1.5 mg subcut QWEEK lamotrigine 200 mg tablet 200 mg PO QAM gabapentin 100 mg capsule 200 mg PO QAM (DME) FreeStyle Ni 2 [place] Misc See Rx Instructions .Route Qty: 1 0RF Rx Instructions: As directed docusate sodium 100 mg capsule 200 mg PO BEDTIME Qty: 180 3RF omeprazole 20 mg capsule,delayed release(DR/EC) 20 mg PO BID insulin lispro [Humalog KwikPen Insulin] 100 unit/mL insulin pen 1 sliding scale dose subcut USEASDIRECTD buspirone 10 mg tablet 10 mg PO TID atorvastatin 80 mg tablet 80 mg PO DAILY metoprolol tartrate 25 mg tablet 25 mg PO BID furosemide 20 mg tablet 20 mg PO DAILY lisinopril 10 mg tablet 10 mg PO DAILY metformin 500 mg tablet 500 mg PO BID sertraline 100 mg tablet 150 mg PO QAM aripiprazole 20 mg tablet 20 mg PO QAM Print Language: Belarusian
[2024-10-28 10:18] LABS: MANUAL DIFF FLAG NO
[2024-10-28 10:20] LABS: Hematocrit 32.7 % (37.0-47.0); Hemoglobin 11.0 g/dl (12.0-16.0); Imm Gran Abs Auto 0.02 X10*3/uL (0.00-0.03); Imm Gran Pct Auto 0.2 % (0.0-0.4); Lymphocytes Absolute Auto 3.0 X10*3/uL (1.2-4.9); Mean Corpuscular HGB Conc 33.6 g/dl (31.0-35.0); Mean Corpuscular Hemoglobin 27.2 pg (27.0-33.0); Mean Corpuscular Volume 80.9 fL (80.0-98.0); NRBC Abs Auto 0.000 X10*3/uL (0.0-0.012); NRBC Pct Auto 0.0 /100WBC (0.0-0.2); Platelet Count 206 X10*3/uL (160-400); Red Blood Count 4.04 X10*6/uL (4.20-5.50); White Blood Count 12.5 X10*3/uL (4.8-10.8)
[2024-10-28 10:34] LABS: Alanine Aminotransferase 24 U/L (0-31); Albumin Level 4.2 g/dL (3.5-5.0); Alkaline Phosphatase 89 U/L (39-117); Anion Gap 14 (12-20); Aspartate Amino Transferase 34 U/L (5-31); Blood Urea Nitrogen 16 mg/dL (9-16); Calcium 9.7 mg/dL (8.4-10.2); Carbon Dioxide 23 mmol/L (22-29); Chloride 104 mmol/L (96-108); Creatinine Clr Calc Pharmacy 66.4; Estimated Glomerular Filt Rate > 60; Potassium 4.1 mmol/L (3.3-5.1); Sodium 137 mmol/L (135-145); Total Protein 7.5 g/dL (6.5-8.0)
[2024-10-28 10:41] LABS: Troponin-I High Sensitivity 5.4 ng/L (<3.5-17.0)
[2024-10-28 12:30] VITALS: BP 165/69; PULSE 82; RESP 18; TEMP 36.9; O2SAT 97
[2024-10-28 13:01] LABS: Appearance Urine Clear; Glucose Urine UA Negative (Negative); PH 6.5 (5.0-9.0); Specific Gravity - Urine 1.010 (1.005-1.025); UMIC TRIGGER UACC YES
[2024-10-28 13:14] VITALS: BP 159/68; PULSE 97; RESP 16; TEMP 36.2; O2SAT 97
[2024-10-28 13:42] LABS: Appearance Urine Clear; Glucose Urine UA Negative (Negative); PH 6.5 (5.0-9.0); Specific Gravity - Urine 1.010 (1.005-1.025); UMIC TRIGGER UACC YES
--- NOTE | 2024-10-28 16:16 | MHC.CM.PN ---
PT WITH DEMENTIA, CM ATTEMPTED TO CONTACT SON/[facility] VIA T/C, CM MESSAGE LEFT REQUESTING RETURN CALL PT PRESENTED AFTER A FALL, PT EVAL WILL BE NEEDED FOR DISPO PLANNING
[2024-10-28 16:36] VITALS: BP 149/53; PULSE 75; RESP 18; TEMP 36.8; O2SAT 98
[2024-10-28 18:39] VITALS: BP 163/73; PULSE 97; RESP 18; TEMP 36.1; O2SAT 95
[2024-10-28 19:31] VITALS: BP 147/53; PULSE 73; RESP 20; TEMP 36.8; O2SAT 95
--- NOTE | 2024-10-28 19:39 | PC.NURSE ---
this rn assumed care of pt, pt medicated per mar, tolerated whole well with water. vss.
--- NOTE | 2024-10-28 20:34 | MHC.EDTECH ---
patient put on a hospital bed
[2024-10-28 21:09] LABS: Glucose, Whole Blood 162 mg/dL (60-115)
[2024-10-29 06:00] VITALS: BP 135/68; PULSE 67; RESP 16; TEMP 36.3; O2SAT 100
--- NOTE | 2024-10-29 06:21 | PC.NURSE ---
Assumed care of patient at 2130 in ED OVF. Patient is alert and oriented x 3, pleasant calm and cooperative. Medicated per APR, patient reporting generalized pain and accepting of tylenol. Assist x 2 with walker to bedside commode. No acute events overnight. Bed locked and in lowest setting, alarm on. Call vee within reach.
--- NOTE | 2024-10-29 07:30 | MHC.EDTECH ---
pt was assisted to the commode and voided
[2024-10-29 08:05] LABS: Glucose, Whole Blood 100 mg/dL (60-115)
--- NOTE | 2024-10-29 08:05 | MHC.EDTECH ---
pt ate 100 of her breakfast
--- NOTE | 2024-10-29 08:50 | MHC.EDTECH ---
pt was assisted with washing up and linen changed and standby assistance with teeth brushing
--- NOTE | 2024-10-29 09:42 | MHC.EDTECH ---
pt was assisted to the recliner by physical therapy
[2024-10-29 11:11] LABS: Glucose, Whole Blood 208 mg/dL (60-115)
--- NOTE | 2024-10-29 11:20 | MHC.EDTECH ---
pt was assisted back to bed with a walker
--- NOTE | 2024-10-29 12:35 | MHC.EDTECH ---
pt ate 100% lunch
[2024-10-29 14:00] VITALS: BP 138/73; PULSE 63; RESP 20; TEMP 36.8; O2SAT 97
--- NOTE | 2024-10-29 14:19 | MHC.CM.PN ---
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
--- NOTE | 2024-10-29 14:44 | MHC.EDTECH ---
pt was assisted with a walker to the commode and voided
[2024-10-29 15:33] VITALS: BP 138/73; PULSE 63; RESP 20; TEMP 36.8; O2SAT 97
== END 2024-10-29 15:34 | disposition home or self-care (01) ==
PROVIDERS: Physician Assistant; Emergency Provider Emergency Medicine; PCP Internal Medicine
DX: S06.0X0A Concussion without loss of consciousness, initial encounter (principal); N18.30 Chronic kidney disease, stage 3 unspecified; F03.90 Unspecified dementia, unspecified severity, without behavioral disturbance, psychotic disturbance, mood disturbance, and anxiety; I10 Essential (primary) hypertension; W18.39XA Other fall on same level, initial encounter; Z91.81 History of falling; Y93.89 Activity, other specified; Y92.098 Other place in other non-institutional residence as the place of occurrence of the external cause; Y99.8 Other external cause status; Z72.0 Tobacco use; Z79.899 Other long term (current) drug therapy
CPT/HCPCS: 36415; 70450; 71045; 72125; 72170; 80053; 81001; 82550; 82947; 84484; 85025; 93005; 96360; 97162; 99285

== ENCOUNTER → 2024-10-28 09:48 | Outpatient (BNV) | payer OTHER, SELFPAY | PROVIDERS: PCP Internal Medicine; Visit Provider Radiology Vascular & Interventional Radiology | DX: M50.30 Other cervical disc degeneration, unspecified cervical region (principal); S09.90XA Unspecified injury of head, initial encounter; R07.9 Chest pain, unspecified; S32.9XXA Fracture of unspecified parts of lumbosacral spine and pelvis, initial encounter for closed fracture; W19.XXXA Unspecified fall, initial encounter | CPT/HCPCS: 70450; 71045; 72125; 72170 ==

== ENCOUNTER → 2024-10-28 09:49 | Outpatient (BNV) | payer OTHER, SELFPAY | PROVIDERS: Emergency Provider Emergency Medicine; PCP Internal Medicine; Visit Provider Internal Medicine Cardiovascular Disease | DX: I45.2 Bifascicular block (principal) | CPT/HCPCS: 93010 ==

== ENCOUNTER 2024-11-03 18:13 | Inpatient (IN) | payer OTHER, SELFPAY ==
--- NOTE | ~2024-11-03 | XR_ITS ---
CLINICAL HISTORY: fall L shoulder pain dec movement --- Additional Notes or Special Instructions: Patient collared @1852 Three views of the left shoulder. COMPARISON: None provided. FINDINGS: Proximal left humerus, the left scapula, and the left clavicle appear intact. Humeral head is appropriately seated in the glenoid. Moderate hypertrophy of the left acromioclavicular joint. Visualized portions of the left lung are clear. Atherosclerotic thoracic aorta. IMPRESSION: 1. No radiographic evidence of acute injury to the left shoulder. 2. Moderate acromioclavicular joint degenerative changes. This document has been electronically signed by: Joey Daley MD on 11/03/2024 19:44:09
--- NOTE | ~2024-11-03 | MR_ITS ---
CLINICAL HISTORY: LE weakness,multiple falls,waking difficulty MR lumbar spine without contrast. COMPARISON: None provided. FINDINGS: Grade 1 anterolisthesis of L4 on L5, degenerative. Vertebral heights are maintained. No evidence of acute vertebral body injury. Modic type 1 degenerative endplate changes at L3-L4. Modic type 2 degenerative endplate changes at L5-S1. The conus terminates at superior endplate of L2 and is otherwise unremarkable. Visualized portions of the sacrum are normal. L5-S1: Loss of disc space height. Anterior marginal osteophytes central posterior disc bulge. Facet joint arthrosis. Severe bilateral neural foraminal narrowing. L4-L5: Desiccation of the disc. Mild posterior disc bulge. Fluid present within the facet joints bilaterally. Mild left neural foraminal narrowing. L3-L4: Anterior marginal osteophytes. Loss of disc space height. Posterior osteophyte. Mild posterior disc bulge. Facet joint arthrosis. Mild bilateral neural foraminal narrowing. Mild spinal canal stenosis at this level. L2-L3: Mild posterior disc bulge. No significant neural foraminal narrowing. Mild spinal canal stenosis at this level. L1-L2: Intervertebral disc is normal in height. No significant disc bulge or central canal stenosis. Partially visualized [id number] bilateral hydronephrosis and hydroureter with partially visualized distended urinary bladder. No obstructing calculus identified. IMPRESSION: 1. No evidence of acute injury to the lumbar spine. 2. Facet joint synovitis present at L4-5 bilaterally, left more so than right. 3. Grade 1 anterolisthesis of L4 on L5, degenerative. 4. Mild spinal canal stenosis at L2-3 and L3-4. 5. Moderate to advanced multilevel spondylosis with multilevel neural foraminal narrowing most pronounced at L5-S1. 6. Severe bilateral hydronephrosis and hydroureter with distention of the urinary bladder partially visualized. This document has been electronically signed by: Joey Daley MD on 11/04/2024 18:07:23
--- NOTE | ~2024-11-03 | XR_ITS ---
CLINICAL HISTORY: unable to put weight on it. 2 view right knee Comparison: CR/SR - XR KNEE 1-2 VIEWS RIGHT - 08/05/23 13:49 EDT Findings: PA and lateral views of the right knee demonstrate normal alignment. There is mild medial joint space narrowing. Healed fracture deformity of the proximal fibula is present. Tibial plateaus are nondepressed. Patella is normally oriented to the femoral condyle. No joint effusion. IMPRESSION: 1. No acute fracture, subluxation, or dislocation. 2. No joint effusion. 3. Healing fibular fracture. This document has been electronically signed by: Shai Mcdaniel III, MD PHD on 11/04/2024 01:44:24
--- NOTE | ~2024-11-03 | US_ITS ---
EXAMINATION: US KIDNEY BILATERAL HISTORY: follow up hydronephrosis TECHNIQUE: Real-time grayscale ultrasound imaging of the kidneys was performed and images were reviewed. COMPARISON: Correlation is made with an abdominal ultrasound dated 10/23/2021. Correlation is also made with a lumbar spine MRI dated 11/04/2024. FINDINGS: Right kidney: The right kidney measures 11.0 x 4.0 x 4.8 cm. Renal parenchymal echotexture and thickness are normal. There are no masses. There is mild hydronephrosis. No calculi are identified. Left Kidney: The left kidney measures 9.3 x 4.1 x 4.5 cm. Renal parenchymal echotexture and thickness are normal. There are no masses. There is no hydronephrosis or renal calculi. The urinary bladder is distended. There is bladder wall thickening measuring up to 1.3 cm. US/US renal BI IMPRESSION: Mild right hydronephrosis. Urinary bladder wall thickening measuring up to 1.3 cm. Electronically signed by: Joe Meng MD 11/07/2024 09:40 AM EDT
--- NOTE | ~2024-11-03 | CT_ITS ---
CLINICAL HISTORY: fall w head strike midline spinous tenderness CT cervical spine without contrast. COMPARISON: CT cervical spine dated 10/28/24 at 09:57 EDT FINDINGS: Mild leftward curvature of the mid cervical spine. Vertebral body heights are maintained. No evidence of acute vertebral body injury. Skull base and intracranial structures appear normal. Calcified plaque present at the carotid bulbs bilaterally. C2-C3: No significant neuroforaminal narrowing or spinal canal stenosis. C3-C4: Anterior marginal osteophytes. C4-C5: Anterior marginal osteophytes. C5-C6: Anterior marginal osteophytes. Loss of disc space height. Posterior disc osteophyte complex. Uncovertebral joint hypertrophy. Yuukjbzz-rb-rjstsw bilateral neural foraminal narrowing. C6-C7: Anterior marginal osteophytes. Loss of disc space height. Uncovertebral joint hypertrophy. Mild bilateral neural foraminal narrowing. IMPRESSION: 1. No evidence of acute injury to the cervical spine. This document has been electronically signed by: Joey Daley MD on 11/03/2024 20:14:45
--- NOTE | ~2024-11-03 | CT_ITS ---
CLINICAL HISTORY: fall w head strike CT head without contrast. COMPARISON: CT head dated 10/28/24 at 09:57 EDT FINDINGS: Layering fluid present within the sphenoid sinuses. Mastoid air cells are clear. No calvarial fracture. Atherosclerotic intracranial vasculature. No evidence of mass or mass effect. No intracranial hemorrhage or abnormal extra-axial fluid collection. The ventricles are proportional with the degree of mild global cerebral volume loss without evidence of hydrocephalus. Basilar cisterns are patent. There are periventricular areas of low attenuation compatible with mild white matter small vessel disease. Posterior fossa appears unremarkable. IMPRESSION: 1. No acute intracranial findings. This document has been electronically signed by: Joey Daley MD on 11/03/2024 20:14:30
--- NOTE | 2024-11-03 18:17 | ED.GENADULT ---
HPI - General Adult General Chief complaint: Fall Stated complaint: fall - head strike - today 2 pm Time Seen by Provider: 11/03/24 18:45 Source: patient History of Present Illness HPI narrative: This is a 69 years old the patient with a history of dementia brought by the son because of fall patient is unable to give any history because of dementia. I called the son Marcos [phone] he tells me that the mother is not doing well at home she lives by herself for the last week she has been deteriorating. The son thinks that she got dizzy and fell. Onset (ago): hour(s) (6) Location: head and neck Radiation: non-radiation Severity: mild Quality: burning Pain Consistency: constant Relieving factors: none Exacerbating factors: none Associated symptoms: denies other symptoms Related Data Home Medications ?Medication ?Instructions ?Recorded ?Confirmed atorvastatin 80 mg tablet 80 mg PO DAILY 01/19/24 10/28/24 buspirone 10 mg tablet 10 mg PO TID 01/19/24 10/28/24 furosemide 20 mg tablet 20 mg PO DAILY 01/19/24 10/28/24 lisinopril 10 mg tablet 10 mg PO DAILY 01/19/24 10/28/24 metformin 500 mg tablet 500 mg PO BID 01/19/24 10/28/24 metoprolol tartrate 25 mg tablet 25 mg PO BID 01/19/24 10/28/24 acetaminophen 650 mg 1,300 mg PO BID PRN mild pain 01/20/24 10/28/24 tablet,extended release aripiprazole 20 mg tablet 20 mg PO QAM 01/20/24 10/28/24 gabapentin 100 mg capsule 200 mg PO QAM 01/20/24 10/28/24 insulin lispro 100 unit/mL 1 sliding scale dose subcut 01/20/24 10/28/24 subcutaneous pen (Humalog KwikPen USEASDIRECTD (U-100) Insulin) lamotrigine 200 mg tablet 200 mg PO QAM 01/20/24 10/28/24 omeprazole 20 mg capsule,delayed 20 mg PO BID 01/20/24 10/28/24 release sertraline 100 mg tablet 150 mg PO QAM 01/20/24 10/28/24 dulaglutide 0.75 mg/0.5 mL 1.5 mg subcut QWEEK 07/18/24 10/28/24 subcutaneous pen injector (Trulicity) aspirin 81 mg tablet,delayed 81 mg PO DAILY 10/29/24 release insulin glargine 100 unit/mL (3 unit subcut 10/29/24 mL) subcutaneous pen (Lantus Solostar U-100 Insulin) lorazepam 0.5 mg tablet 0.5 mg PO QPM 10/29/24 olanzapine 5 mg tablet 5 mg PO BEDTIME 10/29/24 pantoprazole 40 mg tablet,delayed 40 mg PO QAM 10/29/24 release quetiapine 50 mg tablet 50 mg PO BEDTIME PRN Agitation 10/29/24 10/29/24 Previous Rx's ?Medication ?Instructions ?Recorded lancets 28 gauge (FreeStyle #100 ea 10/09/20 Lancets) pen needle, diabetic 32 gauge x #100 ea 01/05/22 (Unifine Pentips) docusate sodium 100 mg capsule 200 mg (2 x 100 mg) PO BEDTIME 05/19/22 #180 caps flash glucose scanning reader #1 ea 06/16/22 (FreeStyle Ni 2 [place]) flash glucose sensor (FreeStyle #2 kits 07/21/23 Ni 2 Sensor kit) blood sugar diagnostic (FreeStyle #100 ea 08/04/23 Lite Strips) blood-glucose meter (FreeStyle #1 ea 08/04/23 Lite Meter kit) Allergies Allergy/AdvReac Type Severity Reaction Status Date / Time duloxetine (Cymbalta) Allergy Unknown Unknown Verified 11/03/24 18:19 hydroxyzine Allergy Unknown unknown Verified 11/03/24 18:19 risperidone Allergy Unknown Unknown Verified 11/03/24 18:19 trazodone Allergy Unknown Unknown Verified 11/03/24 18:19 quetiapine (From SEROQUEL) AdvReac Severe Acute Verified 11/03/24 18:19 Dystonic reaction Review of Systems Review of Systems: Yes Unobtainable due to mental condition (Dementia) [facility] Past Medical History Attestation statement: The following information was validated with the patient. Medical History Breast calcification, left Disc degeneration, lumbar Dermatophytosis Dermatitis Joint pain Depression with anxiety Schizoaffective disorder PTSD (post-traumatic stress disorder) Dementia Smoking CAD (coronary artery disease) Type 2 diabetes mellitus with chronic kidney disease Chronic kidney disease, stage 3 unspecified Type 2 diabetes mellitus with diabetic polyneuropathy Essential hypertension Dyslipidemia Diabetes mellitus with hyperglycemia Surgical History Hx of colonoscopy Hx of cataract surgery Hx of tubal ligation Hx of section Family History Family History Father No problems noted. Mother No problems noted. Social History Social History Household Members: None Household Members Other:: has CHD Services Housing: Apartment Do you presently have visiting nurse or other home services: Yes Unable to assess alcohol history related to: Unknown Alcohol intake: former Patient Tobacco Use Status: Current everyday Tobacco user Tobacco use type: Cigarette Cigarette Packs Per Day: 1 Cigarettes Per Day: 4 Smoked in Last 30 Days: Yes Second Hand Smoke Exposure: No Use of substances other than those prescribed or required for medical reasons: No Advance Directives: No Advance Directives Information Provided: No Advance Directives Date on File: 09/30/20 service: No Sexual orientation: Straight/Heterosexual Physical Exam ED Exam Exam: On examination she looks well she is not toxic-appearing C-collar was placed in triage Vital Signs: Vital Signs - 24 hr 11/03/24 18:18 11/03/24 18:22 11/03/24 22:54 Temperature 98.2 F 98.2 F 97.7 F Pulse Rate 78 88 61 Respiratory Rate 18 15 Blood Pressure 108/55 L 110/47 L 101/63 Pulse Oximetry 93 94 95 Oxygen Delivery Method Room Air Room Air Room Air BMI result Body Mass Index 23.8 Const General: cooperative Nutritional Appearance: average body habitus Limitations: no limitations HENMT Head: Yes normal to inspection General nose exam: Normal external nose present Face and sinus: Yes normal facial exam Mouth: Normal oral and palatal mucosa present Throat: Yes posterior oropharynx normal Neck Neck: Yes normal visual inspection Chest Chest palpation & inspection: normal inspection of the chest Resp Effort & Inspection: normal respiratory effort Cardio Jugular venous distension: no JVD GI Inspection: Yes normal to inspection Palpation (GI): Soft to palpation General: Yes no CVA tenderness Back/Spine/Pelvis Back: no CVA tenderness Skin General skin exam: no rashes or lesions noted Neuro Other: Patient is oriented to place she can not tell me she is in of the hospital she can tell me the Month but not the day Cranial nerves: Yes CN's II-XII intact bilaterally Course Course Course Narrative: This is a Rapid Medical Examination (RME) performed by Kailee Calle PA-C in triage. Full HPI, ROS, assessment and treatment plan per primary provider in the Main ED. Hx: 69 yo F hx T2DM, stage 3 CKD, HTN, dementia here w/ family for eval s/p unwitnessed fall today. patient lives alone. josy arrived and found her on the ground of her house around 1400 today. called mobile UC who assessed pt and advised she come to the ED. no thinners, on daily aspirin. patient reports feeling dizzy prior to falling. is unsure how long she was down for. history limited d/t dementia. reports striking the left side of her head. reports left shoulder pain and neck pain. PE/vitals: PERRLA. appears to be at baseline mentation per family. midline c spine tenderness - no step off. placed in c collar and transported to main ED bed. Plan: labs, ekg, imaging Medications Administered Generic Name Dose Route Start Last Admin Trade Name Freq PRN Reason Stop Dose Admin Ceftriaxone Sodium 1 gm 11/04/24 00:00 11/04/24 00:15 Ceftriaxone Sodium 1 Gm Vial IVPUSH 1 gm Q24H DELMER Administration Lactated Ringer's 1,000 mls @ 999 mls/hr 11/04/24 00:36 11/04/24 00:44 Lr IV 11/04/24 01:36 999 mls/hr .Q1H1M STA Administration Medical Decision Making Medical Decision Making [facility] Narrative: Patient is here after a fall states she felt dizzy before falling however history is limited because of the dementia, electrocardiogram shows a right bundle-branch block and left fascicular block (bifascicular block) she is at risk of heart block I think it is very reasonable to admit in telemetry for obs Differential Diagnosis Differential Diagnoses: The differential diagnosis associated with the presentation includes Syncope/dizziness/dehydration/arrhythmia Admission/Observation Consideration of admission/observation: Escalation of care including admission/observation considered Consult Healthcare Provider Management of the patient was discussed with: Hospitalist Lab Data [facility] Lab Attestation statement: I reviewed the patient's lab results. 11/03/24 18:39 11/03/24 18:39 Labs: Lab Results 11/03/24 11/03/24 Range/Units 18:39 22:15 WBC 9.1 (4.8-10.8) X10*3/uL RBC 3.80 L (4.20-5.50) X10*6/uL Hgb 10.3 L (12.0-16.0) g/dl Hct 30.7 L (37.0-47.0) % MCV 80.8 (80.0-98.0) fL MCH 27.1 (27.0-33.0) pg MCHC 33.6 (31.0-35.0) g/dl RDW 14.0 (11.0-16.0) % Plt Count 205 (160-400) X10*3/uL MPV 11.7 (9.4-12.3) fL Immature Gran % (Auto) 0.2 (0.0-0.4) % Neut % (Auto) 55.7 (45-73) % Lymph % (Auto) 33.3 (20-40) % Hood % (Auto) 8.4 (2-11) % Eos % (Auto) 2.1 (0-4) % Baso % (Auto) 0.3 (0-2) % Lymph # (Auto) 3.0 (1.2-4.9) X10*3/uL Hood # (Auto) 0.8 (0.1-1.2) X10*3/uL Eos # (Auto) 0.2 (0.0-0.4) X10*3/uL Baso # (Auto) 0.0 (0.0-0.2) X10*3/uL Abs Immat Gran (auto) 0.02 (0.00-0.03) X10*3/uL Absolute Neuts (auto) 5.0 (2.0-8.3) x10*3/uL Absolute Nucleated RBC 0.000 (0.0-0.012) X10*3/uL Nucleated RBC % (auto) 0.0 (0.0-0.2) /100WBC Sodium 133 L (135-145) mmol/L Potassium 3.8 (3.3-5.1) mmol/L Chloride 100 (96-108) mmol/L Carbon Dioxide 24 (22-29) mmol/L Anion Gap 13 (12-20) BUN 21 H (9-16) mg/dL Creatinine 0.89 (0.5-1.4) mg/dL Estim Creat Clear Calc 47.8 Estimated GFR > 60 Random Glucose 219 H (60-115) mg/dL Calcium 9.3 (8.4-10.2) mg/dL Magnesium 1.6 (1.6-2.6) mg/dL Total Bilirubin 0.2 (0.0-1.0) mg/dL AST 30 (5-31) U/L ALT 24 (0-31) U/L Alkaline Phosphatase 85 (39-117) U/L Total Creatine Kinase 356 H (26-140) U/L Troponin I High Sens 4.3 (<3.5-17.0) ng/L Total Protein 7.2 (6.5-8.0) g/dL Albumin 4.1 (3.5-5.0) g/dL Urine Color Yellow Urine Appearance Clear Urine pH 6.5 (5.0-9.0) Ur Specific Armstrong <= 1.005 (1.005-1.025) Urine Protein Negative (Neg-Trace) mg/dL Urine Glucose (UA) Negative (Negative) mg/dL Urine Ketones Negative (Negative) mg/dL Urine Blood Negative (Negative) Urine Nitrite Negative (Negative) Ur Leukocyte Esterase Large (3+) H (Negative) Urine RBC 0-2 (0-2) /HPF Urine WBC 11-20 H (0-5) /HPF Ur Squamous Epith Cells 0-2 (0-2) /HPF Urine Bacteria None Seen (None Seen) Hyaline Casts 0-2 (0-2) /LPF Independent Historian Clinical information obtained from an independent historian. History obtained from or confirmed by: Other I spoke with the son via phone Discharge Plan Discharge Clinical Impression: Dizziness, Bifascicular block Fall Qualifiers: Encounter type: initial encounter Qualified Code(s): W19.XXXA - Unspecified fall, initial encounter Patient Disposition: Admitted As Inpatient
[2024-11-03 18:18] VITALS: BP 108/55; PULSE 78; RESP 18; TEMP 36.8; O2SAT 93; BMI 23.8
[2024-11-03 18:22] VITALS: BP 110/47; PULSE 88; RESP 15; TEMP 36.8; O2SAT 94
--- NOTE | 2024-11-03 18:22 | ECG_ITS ---
Test Reason : fall Blood Pressure : */* mmHG Vent. Rate : 60 BPM Atrial Rate : 60 BPM P-R Int : 186 ms QRS Dur : 134 ms QT Int : 436 ms P-R-T Axes : 74 -55 67 degrees QTcB Int : 436 ms Normal sinus rhythm Right bundle branch block Left anterior fascicular block Bifascicular block Abnormal ECG When compared with ECG of 28-Oct-2024 10:29, No significant change was found Referred By: Starr Calle Electronically Signed By: AISHWARYA MARTE MD
--- NOTE | 2024-11-03 18:34 | PC.NURSE ---
Patient's son Marcos left phone number for any questions - [phone].
[2024-11-03 18:44] LABS: MANUAL DIFF FLAG NO
[2024-11-03 18:47] LABS: Hematocrit 30.7 % (37.0-47.0); Hemoglobin 10.3 g/dl (12.0-16.0); Imm Gran Abs Auto 0.02 X10*3/uL (0.00-0.03); Imm Gran Pct Auto 0.2 % (0.0-0.4); Lymphocytes Absolute Auto 3.0 X10*3/uL (1.2-4.9); Mean Corpuscular HGB Conc 33.6 g/dl (31.0-35.0); Mean Corpuscular Hemoglobin 27.1 pg (27.0-33.0); Mean Corpuscular Volume 80.8 fL (80.0-98.0); NRBC Abs Auto 0.000 X10*3/uL (0.0-0.012); NRBC Pct Auto 0.0 /100WBC (0.0-0.2); Platelet Count 205 X10*3/uL (160-400); Red Blood Count 3.80 X10*6/uL (4.20-5.50); White Blood Count 9.1 X10*3/uL (4.8-10.8)
--- OUTSIDE RECORDS SUMMARY | 2024-11-03 18:53 | XMS_ITS | Encounter Summary ---
Author Organization [employer] Address [address] [facility] [address] [place] [address] Care Team Providers Care Supervisor Nuclear Medicine Name Role Phone Gilda De La Torre MD Primary Care Provide r Toya Kyle PharmD Unavailable [phone] Reason for Visit * Reason Onset Date Comments FILING WRITER Hours and VNA Services 04/14/2023 Encounter Details Date Type Department Care Team (Late st Contact Info) Description 04/14/2023 Telephone [facility] MEDICINE [address] [place], [place] [phone] Gilda De La Torre MD [address] [place], [place] [phone] FILING WRITER Hours and VNA Services Social History Tobacco [...] - 05/19/2023 1:29 PM EDT Tc from [facility] with ICP requesting status of increase on FILING WRITER hours request. Please contact at [phone] * Telephone Encounter - Leyla Peacock - 05/04/2023 3:56 PM EST Tc from [facility] ICP requesting status on FILING WRITER hours and life alert request. Please contact at [phone] * Telephone Encounter - Joy Winn - 04/14/2023 4:32 PM EST Tc from Kika with [employer] [facility] stating that pt is requiring more FILING WRITER Hours and VNA Orders. Please contact Wendy @ [phone] documented in this encounter Plan of Treatment Upcoming Encounters Date Type Department Care Team (Late st Contact Info) Description 11/07/2024 2:00 PM EDT Medication Management [facility] MEDICINE [address] [place] [address] Toya Kyle, PharmD [address] [place] [address] 01/30/2025 11:00 AM EST Office Visit [facility] OPTOMETRY [address] [place], [place] [phone] Meme Covington, OD [address] [place] [address] documented as of this encounter Visit Diagnoses Not on filedocumented in this encounter Additional Health Concerns Assessment Noted Time PHQ-9 Depression Total Score: 14 023 10:32 AM EDT documented as of this encounter Care Teams Supervisor Nuclear Medicine Relationship Specialty Start Date End Date Gilda De La Torre MD [address] [place] [address] PCP - General Family Medicine 10/25/21 Toya Kyle, RosaD [address] [place], [place] [phone] Pharmacist Internal Medicine 11/06/23 documented as of this encounter
--- OUTSIDE RECORDS SUMMARY | 2024-11-03 18:53 | XMS_ITS | Encounter Summary ---
Author Organization [employer] Address [address] [facility] [address] [place] [address] Care Team Providers Care Manager Qa Name Role Phone Gilda De La Torre MD Primary Care Provide r Toya Kyle PharmD Unavailable [phone] Encounter Details Date Type Department Care Team (Late st Contact Info) Description 03/24/2024 Orders Only [facility] MEDICINE [address] [place], [place] [phone] Provider, MD Jose J Social History Tobacco [...] 2:00 PM EDT Medication Management [facility] [address] [place] [address] Toya Kyle, PharmD [address] [place] [address] 01/30/2025 11:00 AM EST Office Visit [facility] OPTOMETRY [address] [place] [address] AdriaMeme gee, OD [address] [place] [address] documented as of this encounter Procedures Procedure [...] documented as of this encounter Care Teams Manager Qa Relationship Specialty Start Date End Date Gilda De La Torre MD [address] [place] [address] PCP - General Family Medicine 10/25/21 Toya Kyle, Fay [address] [place] [address] Pharmacist Internal Medicine 11/06/23 documented as of this encounter
--- OUTSIDE RECORDS SUMMARY | 2024-11-03 18:53 | XMS_ITS | Encounter Summary ---
Author Organization [employer] Address [address] [address] [place] [address] Care Team Providers Care Reeler Operator Name Role Phone Gilda De La Torre MD Primary Care Provide r Toya Kyle PharmD Unavailable [phone] Reason for Visit * Reason Comments Med Refill Encounter Details Date Type Department Care Team (Late st Contact Info) Description 03/08/2024 Refill [facility] MEDICINE [address] [place], [place] [phone] Gilda De La Torre MD [address] [place], [place] [phone] Primary hypertension Social History Tobacco Use Types [...] Description 11/07/2024 2:00 PM EDT Medication Management [facility] MEDICINE [address] [place] [address] Toya Kyle, PharmD [address] [place] [address] 01/30/2025 11:00 AM EST Office Visit [facility] OPTOMETRY [address] [place] [address] Meme Covington, OD [address] [place] [address] documented as of this encounter Visit Diagnoses Diagnosis Primary hypertension Unspecified essential hypertension documented in this encounter Additional Health Concerns Assessment Noted Time PHQ-9 Depression Total Score: 0 09/23/19 3:00 PM EDT documented as of this encounter Care Teams Reeler Operator Relationship Specialty Start Date End Date Barciona Maynard, Mandy, MD [address] [place] [address] PCP - General Family Medicine 10/25/21 Toya Kyle, RosaD [address] [place] [address] Pharmacist Internal Medicine 11/06/23 documented as of this encounter
--- OUTSIDE RECORDS SUMMARY | 2024-11-03 18:53 | XMS_ITS | Clinical Summary ---
Author Organization [facility] Address [address] [place] [address] Phone Care Team Providers Care Curb Hop Name Role Phone Jodi Toussaint RN Primary Care Provider [phone] Allergies No known active allergies Encounters Date Type Department Care Team Description 09/03/2024 2:15 PM EDT Office Visit Orthopedic Surgery [facility] [address] [facility] [address] [place] [address] Marcel Alatorre, [place] Controlled type [...] PM EDT Office Visit Orthopedic Surgery - [place] [address] [id number] Marcel Alatorre, [place] [address] [address] Health Maintenance Due Date Last Done Comments [...] 02/07/2022 Hypertension/CHF/CAD Annual BMP Blood Test 02/13/2022 Depression Screening 02/29/2024 COVID-19 Vaccine ( season) 2024 03/10/2022, 12/22/2020, 06/03/2020, Additional history exists Influenza Vaccine (#1) 2024 , 12/03/2022, 12/08/2021, [...] pathology results were communicated to Daylin the aids social worker assisting in the care of Ms. Guerline Mariano notified the aids social worker of the benign results and the recommendation for mammography in one year at approximately 1430 hours on 03/20/2024 -------- ADDENDUM -------- Dictated By: Samy Martinez Dictated Date: 03/20/2024 14:28 ET Assigned Physician: Samy Martinez Reviewed and Electronically Signed By: Samy Martinez Signed Date: 03/20/2024 14:29 ET Workstation ID: [id number] Transcribed By: Self Edit Transcribed Date: 03/20/2024 [...] Signed Date: 03/16/2024 12:59 ET Workstation ID: [id number] Transcribed By: Self Edit Transcribed Date: 03/16/2024 [...] was explained to the patient through the spanish medical interpreter. There was no evidence of immediate complication. Postprocedure mammography was performed. An addendum will be generated when the pathology results become available RECOMMENDATION: Pathology pending for the left breast. -------- FINAL REPORT -------- Dictated By: Samy Martinez Dictated Date: 03/15/2024 12:08 ET Assigned Physician: Samy Martinez Reviewed and Electronically Signed By: Samy Martinez Signed Date: 03/15/2024 12:21 ET Workstation ID: [id number] Transcribed By: Self Edit Transcribed Date: 03/15/2024 [...] requested. PROCEDURE: Informed consent was obtained. A translator interpreter was used throughout the consent process [...] Most Recently Relevant to Health Maintenance [place] [address], [place] [address] [facility] Member Subscriber Plan / Payer (Ef fective 2023-Present) Name:Celeste Cunha Relation to Subscriber:Self Name:Celeste Cunha Payer ID:[id number] Group ID:[id number] Type:Not on file Address: [address] [place] [address] [facility] MEDICARE Member Subscriber Plan / Payer (Ef fective 2023-Present) Name:Celeste Cunha Relation to Subscriber:Self Name:Celeste Cunha Payer ID:[id number] Group ID:[id number] Type:Not on file Address: [address] [place] [address] Care Teams Curb Hop Relationship Specialty Start Date End Date Jodi Toussaint RN [address] [facility] [address] [place] [address] PCP - General 06/16/21
--- OUTSIDE RECORDS SUMMARY | 2024-11-03 18:53 | XMS_ITS | Encounter Summary ---
Author Organization [employer] Address [address] [facility] [address] [place] [address] Care Team Providers Care Serologist Name Role Phone Gilda De La Torre MD Primary Care Provide r Toya Kyle PharmD Unavailable [phone] Reason for Visit * Reason Onset Date Comments Error 06/10/2023 Encounter Details Date Type Department Care Team (Late st Contact Info) Description 06/10/2023 Telephone [facility] MEDICINE [address] [place], [place] [phone] Gilda De La Torre MD [address] [place], [place] [phone] Error Social History Tobacco Use Types Packs/Day [...] 2:00 PM EDT Medication Management [facility] MEDICINE [address] [place] [address] Toya Kyle PharmD [address] [place] [address] 01/30/2025 11:00 AM EST Office Visit [facility] OPTOMETRY [address] [place] [address] Meme Covington, OD [address] [place] [address] documented as of this encounter Visit Diagnoses Not on filedocumented in this encounter Additional Health Concerns Assessment Noted Time PHQ-9 Depression Total Score: 14 023 10:32 AM EDT documented as of this encounter Care Teams Serologist Relationship Specialty Start Date End Date Gilda De La Torre MD [address] [place] [phone] PCP - General Family Medicine 10/25/21 Toya Kyle PharmD [address] [place] [phone] Pharmacist Internal Medicine 11/06/23 documented as of this encounter
--- OUTSIDE RECORDS SUMMARY | 2024-11-03 18:53 | XMS_ITS | Encounter Summary ---
Author Organization [employer] Address [address] [facility] [address] [place] [address] Care Team Providers Care Fiberglass Roving Winder Name Role Phone Gilda De La Torre MD Primary Care Provide r Toya Kyle PharmD Unavailable [phone] Reason for Visit * Reason Comments Med Refill Encounter Details Date Type Department Care Team (Late Contact Info) Description 10/08/[address] [facility] MEDICINE [address] [place] [address] Gilda De La Torre MD [address] [place], [place] [phone] Social History Tobacco Use Types Packs/Day Years [...] Description 11/07/2024 2:00 PM EDT Medication Management [facility] MEDICINE [address] [place] [address] Toya Kyle, PharmD [address] [place] [address] 01/30/2025 11:00 AM EST Office Visit [facility] OPTOMETRY [address] [place], [place] [phone] Meme Covington, OD [address] [place] [address] documented as of this encounter Visit Diagnoses Not on filedocumented in this encounter Additional Health Concerns Assessment Noted Time PHQ-9 Depression Total Score: 14 023 10:32 AM EDT documented as of this encounter Care Teams Fiberglass Roving Winder Relationship Specialty Start Date End Date Gilda De La Torre MD [address] [place], [place] [phone] PCP - General Family Medicine 10/25/21 Toya Kyle PharmD [address] [place] [address] Pharmacist Internal Medicine 11/06/23 documented as of this encounter
--- OUTSIDE RECORDS SUMMARY | 2024-11-03 18:53 | XMS_ITS ---
Author Organization [facility] a nd Nursing Support Name Relationship Address Phone DOC GALLO Emergency Contact Unknown [phone] DOC GALLO Personal Relationship Unknown JUD GODFREY Guarantor [address] [place] [address] JUD GODFREY Agent [address] [place] [address] SAMANTHA GALLO Emergency Contact Unknown Care Team Providers Care Pad Hand Name Role Phone Benigno Sosa Unavailable Unavailable Nhi Bone Unavailable Unavailable Jeanette Mendosa Unavailable Unavailable Allergies and adverse reactions Code CodeSystem Substance Reaction Severity StartDate Concern Status 68441 RXNORM traZODone Unknown 08/09/2023 active 38831 RXNORM SEROquel Unknown 08/09/2023 active 27703 RXNORM risperiDONE Unknown 08/09/2023 active 5553 RXNORM hydrOXYzine Unknown 08/09/2023 active 945892 RXNORM Cymbalta Unknown 08/09/2023 active Care Team Name Role Address Phone Organization Dates Jeanette Mendosa PCP [address] [address], [place], [address], [place] (Office): : [facility] 08/09/2023 - 09/22/2023 Benigno Sosa [address] [address], [place], [address], [place] (Office): : : [facility] 08/09/2023 - 09/22/2023 Nhi Bone [address] [facility] [address], [place], [address], [place] (Office): : [facility] 08/09/2023 - 09/22/2023 Immunizations Immunization Status Vaccine Details Vaccine Code CodeSystem Beny e Notes TB 1 Step Mantoux (PPD) completed tuberculin skin test; unspecified formulation lotNumber: [id number] expiry: 06/27/2026 Mfg: mantoux Given 0.1 ml Left Forearm intradermally 98 CVX created date: 08/10/2023 consent date: 08/10/2023 administere d date: 08/10/2023 TB 2 Step Mantoux Skin Test normal tuberculin skin test; unspecified formulation 98 CVX created date: 08/18/2023 consent date: 08/18/2023 TB 2 Step Mantoux Skin Test completed tuberculin skin test; unspecified formulation lotNumber: [id number] expiry: 06/27/2026 Mfg: tubersol Given 0.1 ml Right Forearm intradermally Step 1 of Multi-step 98 CVX created date: 08/18/2023 consent date: 08/18/2023 administere d date: 08/17/2023 Mental Status Section Date Assessment Total Score Description 09/22/2023 BIMS 08 moderate cognit ce impairment CAM 0 No delirium ind icated PHQ-9 00 08/11/2023 BIMS 08 moderate cognit ce impairment CAM 0 No delirium ind icated PHQ-9 01 minimal depress ion Problems Problem # Description Date of onset Resolved Date Code CodeSystem Concern Status 1 ANXIETY DISORDER, UNSPECIFIED 08/09/[address] active 2 ATHEROSCLEROTIC HEART DISEASE OF [place] CORONARY ARTERY WITHOUT ANGINA PECTORIS 08/09/[address] active 3 CHRONIC KIDNEY DISEASE, STAGE 3 UNSPECIFIED 08/09/[address] active 4 DEPRESSION, UNSPECIFIED 08/09/[address] active 5 ESSENTIAL (PRIMARY) HYPERTENSION 08/09/[address] active 6 HYPERLIPIDEMIA, UNSPECIFIED 08/09/[address] active 7 NONDISPLACED COMMINUTED FRACTURE OF SHAFT OF RIGHT FIBULA, SUBSEQUENT ENCOUNTER FOR CLOSED FRACTURE WITH ROUTINE HEALING 08/09/[address] active 8 POST-TRAUMATIC STRESS DISORDER, UNSPECIFIED 08/09/[address] active 9 SCHIZOAFFECTIVE DISORDER, UNSPECIFIED 08/09/[address] active 10 TYPE 2 DIABETES MELLITUS WITH DIABETIC CHRONIC KIDNEY DISEASE 08/09/[address] active 11 TYPE 2 DIABETES MELLITUS WITH DIABETIC POLYNEUROPATHY 08/09/[address] active 12 UNSPECIFIED DEMENTIA, UNSPECIFIED SEVERITY, WITHOUT BEHAVIORAL DISTURBANCE, PSYCHOTIC DISTURBANCE, MOOD DISTURBANCE, AND ANXIETY 08/09/[address] active 13 UNSPECIFIED FALL, SUBSEQUENT ENCOUNTER 08/09/[address] active 14 UNSTEADINESS ON FEET 08/09/[address] active Reason for Referral No Reasons for Referral Entered Social History Social History Observation Description Start Date End Date Code Code System Current Smoking Status Tobacco smoking consumption unknown 687694847 SNOMED CT Sex Assigned At Female 1955 83780-9 [facility] Gender Identity Vital Signs Code Code System Vitals Name Values and Units Timing Information 8867-4 [facility] Heart rate Value=75.0 Units=/min 2339-0 [facility] Blood Sugar Rhcgn=017.0 Units=mg/dL 09/22/2023 9279-1 [facility] Respiratory Rate Value=18.0 Units=/m in 09/22/2023 8462-4 [facility] Blood Pressure-Diastolic Value=78 Un its=mmHg 09/22/2023 8480-6 [facility] Blood Pressure-Systolic Htzuc=981 Un its=mmHg 09/22/2023 8310-5 [facility] Body Temperature Value=97.6 Units= F 09/22/2023 86813-7 [facility] O2 % BldC Oximetry Value=94.0 Units= % 09/22/2023 65452-2 [facility] Pain Level Value=0.0 09/22/2023 65257-6 [facility] Weight Xqswo=625.1 Units=Lbs 02/2023 8302-2 [facility] Height Value=60.0 Units=Inches 08/09/2023
--- OUTSIDE RECORDS SUMMARY | 2024-11-03 18:53 | XMS_ITS | Encounter Summary ---
Author Organization [employer] Address [address] [facility] [address] [place] [address] Care Team Providers Care Social Science Instructor Name Role Phone Gilda De La Torre MD Primary Care Provide r Toya Kyle PharmD Unavailable Encounter Details Date Type Department Care Team (Late Contact Info) Description 06/22/2022 Orders Only [facility] CHC MED & PEDS [address] [place] [address] Sneha Zapien LPN Social History Tobacco Use [...] Upcoming Encounters Date Type Department Care Team ([facility] Contact Info) Description 11/07/2024 2:00 PM EDT Medication Management [facility] MEDICINE [address] [place] [address] Toya Kyle, PharmD [address] [place], [place] [id number] 01/30/2025 11:00 AM EST Office Visit [facility] OPTOMETRY [address] [place] [address] Meme Covington, OD [address] [place] [address] documented as of this encounter Visit Diagnoses Not on filedocumented in this encounter Additional Health Concerns Assessment Noted Time PHQ-9 Depression Total Score: 14 023 10:32 AM EDT documented as of this encounter Care Teams Social Science Instructor Relationship Specialty Start Date End Date Gilda De La Torre MD [address] [place] [address] PCP - General Family Medicine 10/25/21 Toya Kyle, RosaD [address] [place] [address] Pharmacist Internal Medicine 11/06/23 documented as of this encounter
--- OUTSIDE RECORDS SUMMARY | 2024-11-03 18:53 | XMS_ITS | Clinical Summary ---
Author Organization [employer] Address [address] [place] [address] Care Team Providers Care Histologist Technologist Name Role Phone Gilda De La Torre MD Primary Care Provide r Toya Kyle PharmD Unavailable [phone] Allergies Active Allergy Reactions Criticality Noted Date [...] if needed each day for constipation. Active sertraline (Zoloft) 100 MG tablet Take [...] hyperglycemia, with long-term current use of insulin ([facility]) Inject 6 units if blood sugar 200-250, inject 8 units if blood sugar >250 twice daily with meals 1 each 3 024 Active polyvinyl alcohol (Liquifilm Tears) 1.4 % ophthalmic solution INSTILL 1 DROP IN EACH EYE 4 (FOUR) TIMES DAILY 024 Active Alcohol Swabs (Alcohol Pads) 70 % padsIndications:T ype 2 diabetes mellitus with hyperglycemia, with long-term current use of insulin ([facility]) USE DIRECTED 3 (THREE) TIMES A DAY NEEDED 100 each 5 024 Active Aspirin Low Dose 81 MG EC tabletIndications :Primary hypertension TAKE 1 TABLET BY MOUTH ONCE DAILY 90 tablet 2 025 Active Additional Information Patient not taking.Reported on 06/08/2024 Nyamyc [id number] UNIT/GM powder APPLY TO THE AFFECTED AREA TOPICALLY two (2) times a day 30 g 025 Active Additional Information Patient not taking.Reported on 06/08/2024 traZODone (Desyrel) 50 MG tablet take one (1) tablet by mouth at bedtime 024 Active QUEtiapine (SEROquel) 50 MG tablet Take 1 tablet by mouth at bedtime as needed 025 Active ammonium lactate (Lac-Hydrin) 12 % lotion 024 Active Continuous Glucose Operational Trainer (FreeStyle Ni 3 [place]) deviceIndications :Type 2 diabetes mellitus with other specified complication, with long-term current use of insulin ([facility]) 1 each Use as directed. 1 each 025 Active Additional Information Patient not taking.Reported on 06/08/2024 Continuous Glucose Sensor (FreeStyle Ni 3 Sensor) miscIndications:T ype 2 diabetes mellitus with other specified complication, with long-term current use of insulin ([facility]) 1 each Use as directed. 2 each Active Additional Information Patient not taking.Reported on 06/08/2024 glucose blood (FreeStyle Precision [place] Test) test stripIndications: Type 2 diabetes mellitus with other specified complication, with long-term current use of insulin ([facility]) Use as directed; check blood sugar [...] MOUTH ONCE DAILY BEFORE BREAKFAST 30 tablet 025 Active atorvastatin (Lipitor) 80 MG tabletIndications :Primary hypertension Take 1 tablet (80 mg) by mouth at bedtime. 90 tablet 025 Active nystatin (Mycostatin) ointment Apply topically 2 times daily. Apply to the affected area two times a day- corner of the mouth. 15 g 025 2025 Active lisinopril 10 MG tabletIndications :Primary hypertension TAKE 1 TABLET BY MOUTH EVERY DAY 30 tablet 2 025 Active metoprolol tartrate (Lopressor) 25 MG tablet TAKE 1 TABLET BY MOUTH two (2) times a day. TAKE WITH FOOD 60 tablet 5 025 Active gabapentin (Neurontin) 100 MG capsuleIndication s:Chronic low back pain, unspecified back pain laterality, unspecified whether sciatica present TAKE 2 CAPSULES BY MOUTH ONCE DAILY 60 capsule 025 Active Acetaminophen Extra Strength 500 MG tabletIndications :Low back pain, unspecified TAKE 2 TABLETS BY MOUTH EVERY 8 HOURS 30 tablet 025 Active metFORMIN (Glucophage) 500 MG tabletIndications :Type 2 diabetes mellitus with other specified complication, with long-term current use of insulin ([facility]) Take 1 tablet (500 mg) by mouth with breakfast and with evening meal. 180 tablet 2 Active Diclofenac Sodium 1 % gelIndications:Ch ronic pain of right knee Apply 1 each topically if needed in the morning and at bedtime (apply on afected are twice a day as needed). 100 g 2 Active Dulaglutide (Trulicity) 4.5 MG/0.5ML solution auto-injectorIndi cations:Type 2 diabetes mellitus with hyperglycemia, with long-term current use of insulin ([facility]) Inject 4.5 mg under the skin 1 (one) time per week. 2 mL 2 025 Active LORazepam (Ativan) 0.5 MG tablet take one (1) tablet by mouth every evening Active OLANZapine (ZyPREXA) 5 MG tablet Take 1 tablet by mouth at bedtime. Active polyethylene glycol, PEG, 3350 (MiraLax) 17 GM/SCOOP powderIndications :Slow transit constipation Take 17 g by mouth Once per day. 527 g 2 025 2024 Active liver oil-zinc oxide (Desitin) 40 % ointmentIndicatio ns:Erythema intertrigo Apply topically if needed for irritation. 113 g Active furosemide (Lasix) 20 MG tablet TAKE 1 TABLET BY MOUTH ONCE DAILY 30 tablet 2 025 Active insulin glargine (Lantus SoloStar) 100 UNIT/ML penIndications:Ty pe 2 diabetes mellitus with hyperglycemia, with long-term current use of insulin ([facility]) INJECT 24 UNITS UNDER THE SKIN ONCE DAILY AT BEDTIME 15 mL 11 025 Active Comfort EZ Pen [place] 32G X 4 MM misc USE DIRECTED WITH lantus solostar pens AND 3 (THREE) TIMES A DAY WITH humalog 100 each 025 Active True Comfort Pen [place] 32G X 4 MM misc USE 4 (FOUR) TIMES DAILY 023 2024 Discontinued insulin glargine (Lantus SoloStar) 100 UNIT/ML penIndications:Ty pe 2 diabetes mellitus with hyperglycemia, with long-term current use of insulin (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 Diabetic neuropathy 08/20/2011 Assessment & Plan [...] Encounters Date Type Department Care Team Description 11/03/2024 Orders Only GENERIC EXTERNAL DATA DEPARTMENT Provider, Generic External Data 10/29/2024 Orders Only GENERIC EXTERNAL DATA DEPARTMENT Provider, Generic External Data 10/28/2024 Orders Only GENERIC EXTERNAL DATA DEPARTMENT Provider, Generic External Data 10/27/2024 Refill [facility] [address] [place] [address] Gilda De La Torre MD Type 2 diabetes mellitus with hyperglycemia, with long-term current use of insulin (CMS/HCC) 10/24/[address] [address] Gilda De La Torre MD FYI 10/19/[address] [address] Gilda De La Torre MD 10/16/[address] [address] Ciera Mendoza, RN Home PT Referral 10/15/2024 2:30 PM EDT Office Visit [address] [address] Naya Haywood ANP Stage 3 chronic kidney [...] of both lower extremities 10/15/2024 Results Follow-Up [address] [address] Naya Haywood ANP XR CERVICAL SPINE 3V, XR Shoulder 2+ Views Left 10/15/2024 Travel 10/15/[address] [address] Gilda De La Torre MD 10/12/[address] [address] Gilda De La Torre MD chart prep 10/10/[address] [address] Gilda De La Torre MD 09/26/2024 3:15 PM EDT Office Visit [address] [address] Jo Kauffman FNP UTI symptoms (Primary Dx); Slow transit constipation; Erythema intertrigo 09/26/2024 Orders Only [facility] [address] [place] [address] Jo Kauffman FNP 09/26/2024 Travel 09/24/2024 Telephone [facility] [address] [place] [address] Toya Kyle, PharmD Results 09/24/2024 Travel 09/19/2024 2:00 PM EDT Office Visit [facility] [address] [place] [address] Gilda De La Torre MD Grief (Primary [...] use of insulin (CMS/HCC); Frontal lobe dementia (CMS/HCC) 09/19/2024 Travel 09/17/2024 Telephone [facility] [address] [place] [address] Gilda De La Torre MD Chart Prep 09/17/2024 Refill [facility] [address] [place] [address] Hetal Connolly MD Chronic pain of right knee 09/17/2024 Refill [facility] [address] [place], [place] [phone] Gilda De La Torre MD Type 2 diabetes mellitus with other specified complication, with long-term current use of insulin (CMS/HCC); Chronic pain of right knee 09/15/2024 Refill [facility] [address] [place] [address] Toya Kyle, PharmD Type 2 diabetes mellitus with hyperglycemia, with long-term current use of insulin (CMS/HCC) 09/13/2024 Refill [facility] [address] [place] [address] Gilda De La Torre MD Chronic low back pain, unspecified back pain laterality, unspecified whether sciatica present; Low back pain, unspecified 09/12/2024 Telephone [facility] [address] [place] [address] Gilda De La Torre MD 09/07/2024 9:40 AM EDT Office Visit [facility] [address] [place] [address] Tushar Souza MD Dermatophytosis (Primary Dx) 09/07/2024 Travel 08/23/2024 Refill [facility] [address] [place] [address] Gilda De La Torre MD 08/13/2024 Telephone [facility] [address] [place] [address] [phone] Toya Kyle, PharmD 08/10/2024 Telephone [facility] [address] [place], [place] [phone] Gilda De La Torre MD Appointment Request from Last 3 Months Immunizations Immunization Administration [...] is your housing situation today? I have gilesjanak collado 10/15/[address] you [...] Description 11/07/2024 2:00 PM EDT Medication Management [facility] [address] [place] [address] Toya Kyle, PharmD [address] [place] [address] 01/30/2025 11:00 AM EST Office Visit [facility] [address] [place] [address] Meme Covington, OD [address] [place] [address] Health Maintenance Due Date Last Done Comments CT Colonography 1955 Dental Prophylaxis 1955 Dental X-Ray: Bitewings 1955 FIT DNA/Cologuard 1955 FIT 1955 FOBT 1955 Sigmoidoscopy 1955 Hepatitis C Screening 01/16/1974 Dental Oral Exam 10/01/2024 04/02/2024, 12/23/2022 COVID-19 Vaccine ( season) 2024 03/10/2022, 12/22/2020, [...] Procedure Name Priority Date/Time Associated Diagnosis Comments CBC WITH AUTO DIFFERENTIAL Routine 11/03/2024 6:39 PM EDT GLUCOSE, WHOLE BLOOD Routine 10/29/2024 11:08 AM EDT GLUCOSE, WHOLE BLOOD Routine 10/29/2024 7:24 AM EDT GLUCOSE, WHOLE BLOOD Routine 10/28/2024 9:04 PM EDT URINALYSIS, COMPLETE, WITH REFLEX TO CULTURE Routine 10/28/2024 1:33 PM EDT URINALYSIS, COMPLETE, WITH REFLEX TO CULTURE Routine 10/28/2024 12:33 PM EDT XR PELVIS 1-2 VIEWS Routine 10/28/2024 1 2:09 PM EDT XR CHEST 1 VIEW Routine 10/28/2024 12:[address] HEAD WO CONTRAST Routine 10/28/2024 1 0:[address] CERVICAL SPINE WO CONTRAST Routine 10/28/2024 10:57 AM EDT HIGH SENSITIVITY TROPONIN I Routine 10/28/2024 10:13 AM EDT CREATINE KINASE, TOTAL Routine 10:13 AM EDT COMPREHENSIVE METABOLIC PANEL Routine 10/28/2024 10:13 AM EDT CBC WITH AUTO DIFFERENTIAL Routine 10/28/2024 10:13 AM EDT XR CERVICAL SPINE 3V Routine 10/15/2024 3:18 [...] hyperglycemia, with long-term current use of insulin ([facility]) POCT GLYCATED HEMOGLOBIN, TOTAL Routine 09/19/2024 2:29 PM EDT Type 2 diabetes mellitus with hyperglycemia, with long-term current use of insulin ([facility]) ALBUMIN, RANDOM URINE W/CREATININE Routine 05/14/2024 3:16 PM EDT LIPID PANEL, STANDARD Routine 05/12/2024 8:02 AM EDT Dyslipidemia PANORAMIC RADIOGRAPHIC IMAGE Routine 04/02/2024 3:00 PM EST PERIODIC ORAL EVALUATION - ESTABLISHED PATIENT Routine 04/02/2024 3:00 PM EST HM MAMMOGRAPHY Routine 03/15/2024 2:11 PM EST from Last 3 Months or Most Recently Relevant to Health Maintenance Results * (ABNORMAL) CBC auto differential (11/03/2024 6:39 PM EDT) Only the most recent of2 resultswithin the time period is included. White Blood Count 9.1 4.8 - 10.8 X10*3/uL [facility] Red Blood Count 3.80(L) 4.20 - 5.50 X10*6/uL [facility] Hemoglobin 10.3(L) 12.0 - 16.0 g/dl [facility] Hematocrit 30.7(L) 37.0 - 47.0 % [facility] Mean Corpuscular Volume 80.8 80.0 - 98.0 fL [facility] Mean Corpuscular Hemoglobin 27.1 27.0 - 33.0 pg [facility] Mean Corpuscular HGB Conc 33.6 31.0 - 35.0 g/dl [facility] Red Cell Distribution Width 14.0 11.0 - 16.0 % [facility] Platelet Count 205 160 - 400 X10*3/uL [facility] Mean Platelet Volume 11.7 9.4 - 12.3 fL [facility] Neutrophils Percent Auto 55.7 45 - 73 % [facility] Imm Gran Pct Auto 0.2 0.0 - 0.4 % [facility] Lymphocytes Percent Auto 33.3 20 - 40 % [facility] Monocytes Percent Auto 8.4 2 - 11 % [facility] Eosinophils Percent Auto 2.1 0 - 4 % [facility] Basophils Percent Auto 0.3 0 - 2 % [facility] NRBC Pct Auto 0.0 0.0 - 0.2 /100WBC [facility] Neutrophils Absolute Auto 5.0 2.0 - 8.3 x10*3/uL [facility] Imm Gran Abs Auto 0.02 0.00 - 0.03 X10*3/uL [facility] Lymphocytes Absolute Auto 3.0 1.2 - 4.9 X10*3/uL [facility] Monocytes Absolute Auto 0.8 0.1 - 1.2 X10*3/uL [facility] Eosinophils Absolute Auto 0.2 0.0 - 0.4 X10*3/uL [facility] Basophils Absolute Auto 0.0 0.0 - 0.2 X10*3/uL [facility] NRBC Abs Auto 0.000 0.0 - 0.012 X10*3/uL [facility] 11/03/2024 6:39 PM EDT 11/03/2024 6:42 PM EDT Generic External Data Provider LAB BLOOD ORDERAB LES Final Result Performing Organization Address City/[facility]/ZIP Co de Phone Number [facility] [address] [place] [phone] * (ABNORMAL) Glucose, Whole Blood (10/29/2024 11:08 AM EDT) Only the most recent of3 resultswithin the time period is included. Glucose, Whole Blood 208(H) 60 - 115 mg/dL [facility] Comment:METER #: [id number] 10/29/2024 11:0 8 AM EDT 10/29/2024 11:10 AM EDT Generic External Data Provider LAB BLOOD ORDERAB LES Final Result Performing Organization Address City/[facility]/ZIP Co de Phone Number [facility] [address] [place] [phone] * (ABNORMAL) Urinalysis, Complete, with Reflex to Culture (10/28/2024 1:33 PM EDT) Only the most recent of3 resultswithin the time period is included. Color Urine Yellow [facility] Appearance Urine Clear [facility] PH 6.5 5.0 - 9.0 [facility] Glucose Urine UA Negative Negative mg/dL [facility] Urine Blood Negative Negative [facility] Specific [place] - Urine 1.010 1.005 - 1.025 [facility] Urine Protein Negative Neg-Trace mg/dL [facility] Urine Ketones Negative Negative mg/dL [facility] Nitrite Urine Negative Negative [facility] Leukocyte Esterase Urine Trace(A) Negative [facility] RBC Urine 0-2 0 - 2 /HPF [facility] Urine WBC 0-5 0 - 5 /HPF [facility] Urine Squamous Epithelial Cell 0-2 0 - 2 /HPF [facility] Urine Bacteria None Seen None Seen [facility] Hyaline Casts, Urine 0-2 0 - 2 /LPF [facility] 10/28/2024 1:33 PM EDT 10/28/2024 1:36 PM EDT Narrative [facility] - 10/28/2024 1:45 PM EDT [id number], Clean Catch us Generic External Data Provider LAB URINE ORDERAB LES Final Result Performing Organization Address City/State/[facility] Co de Phone Number [facility] [address] [place] [phone] * XR Pelvis 1-2 Views (10/28/2024 12:09 PM EDT) Anatomical Region Laterality Modality Body, Pelvis Radiographic Ailyn ging 10/28/2024 12:0 9 PM EDT Narrative 10/28/2024 12:10 PM EDT [address] [address] XRay Report Signed Patient: Celeste Cunha MR#: [id number] : 1955 Acct:[id number] Age/Sex: 69 / F ADM Date: 10/28/24 Loc: .ED Attending Dr: Ordering Physician: Chris Galvez Date of Service: 10/28/24 Procedure(s): XR pelvis 1-2V Accession Number(s): [id number] cc: Gilda De La Torre MD; Chris Galvez CLINICAL HISTORY: trauma 1 view pelvis Comparison: None provided Findings: No acute fracture or dislocation. No significant degenerative changes. Moderate fecal retention within the colon. Moderate atherosclerotic disease present. IMPRESSION: 1. No acute findings. This document has been electronically signed by: Nghia Huston MD on 10/28/2024 12:09:23 Dictated By: Nghia Huston MD Signed By: <Electronically signed by Nghia Huston MD in OV> 10/28/24 1210 DD/ 08 TD/TT: 10/28/241208 Replacer: Procedure Note Donotuseinterpreter, Image - 10/28/2024 [place] [address] XRay Report Signed Patient: Akiko Cunha#: [id number] : 6Acct:[id number] Age/Sex: 69 / FADM Date: 10/28/24 Loc: .ED Attending Dr: Ordering Physician: Chris Galvez Date of Service: 10/28/24 Procedure(s): XR pelvis 1-2V Accession Number(s): [id number] cc: Gilda De La Torre MD; Chris Galvez CLINICAL HISTORY: trauma 1 view pelvis Comparison: None provided Findings: No acute fracture or dislocation. No significant degenerative changes. Moderate fecal retention within the colon. Moderate atherosclerotic disease present. IMPRESSION: 1. No acute findings. This document has been electronically signed by: Nghia Huston MD on 10/28/2024 12:09:23 Dictated By: Nghia Huston MD Signed By: <Electronically signed by Nghia Huston MD in OV> 10/28/24 1210 DD/ 08 TD/TT: 10/28/241208 Replacer: [facility] External Provider IMG XR PROCEDURES Final Result * XR Chest 1 View (10/28/2024 12:08 PM EDT) Anatomical Region Laterality Modality Chest Radiographic Ailyn ging 10/28/2024 12:0 8 PM EDT Narrative 10/28/2024 12:09 PM EDT [address] [address] XRay Report Signed Patient: Celeste Cunha MR#: [id number] : 1955 Acct:[id number] Age/Sex: 69 / F ADM Date: 10/28/24 Loc: HO.ED Attending Dr: Ordering Physician: Chris Galvez Date of Service: 10/28/24 Procedure(s): XR chest 1V Accession Number(s): [id number] cc: Gilda De La Torre MD; Chris Galvez CLINICAL HISTORY: trauma --- Additional Notes or Special Instructions: can wait for c spine to be cleared 1 view chest x-ray. Comparison: CR/IN/SR - XR CHEST 2 VIEWS - 10/14/23 15:44 EDT Findings: The lungs are adequately expanded. Minimal interstitial prominence. No focal consolidation. No effusion or pneumothorax. Cardiac and mediastinal contours are within normal limits. No acute osseous abnormality Impression: Minimal interstitial prominence. No focal consolidation. This document has been electronically signed by: Nghia Huston MD on 10/28/2024 12:08:37 Dictated By: Nghia Huston MD Signed By: <Electronically signed by Nghia Huston MD in OV> 10/28/24 1209 DD/ 1208 TD/TT: 10/28/24 1208 Replacer: Procedure Note Donotuseinterpreter, Image - 10/28/[address] [address] XRay Report Signed Patient: Cecilio CunhaR#: [id number] : 1955cct:[id number] Age/Sex: 69 / FADM Date: 10/28/24 Loc: HO.ED Attending Dr: Ordering Physician: Chris Galvez Date of Service: 10/28/24 Procedure(s): XR chest 1V Accession Number(s): [id number] cc: Gilda De La Torre MD; Chris Galvez CLINICAL HISTORY: trauma --- Additional Notes or Special Instructions: canwait for c spine to be cleared 1 view chest x-ray. Comparison: CR/IN/SR - XR CHEST 2 VIEWS - 10/14/23 15:44 EDT Findings: The lungs are adequately expanded. Minimal interstitial prominence. No focal consolidation. No effusion or pneumothorax. Cardiac and mediastinal contours are within normal limits. No acute osseous abnormality Impression: Minimal interstitial prominence. No focal consolidation. This document has been electronically signed by: Nghia Huston MD on 10/28/2024 12:08:37 Dictated By: Nghia Huston MD Signed By: <Electronically signed by Nghia Huston MD in OV> 10/28/24 1209 DD/ 120 TD/TT: 10/28/24 120 Replacer: [facility] External Provider IMG XR PROCEDURES Final Result * CT Head w/o Contrast (10/28/2024 10:59 AM EDT) Anatomical Region Laterality Modality Head, Neck Computed Tomogra phy 10/28/2024 10:5 9 AM EDT Narrative 10/28/2024 11:00 AM EDT [place] [address] CT Scan Report Signed Patient: Celeste Cunha MR#: [id number] : 1955 Acct:[id number] Age/Sex: 69 / F ADM Date: 10/28/24 Loc: HO.ED Attending Dr: Ordering Physician: Chris Galvez Date of Service: 10/28/24 Procedure(s): CT head/brain wo IV con Accession Number(s): [id number] cc: Gilda De La Torre MD; Chris Galvez Report Number: [id number]: Total DLP = 636.00 mGy-cm CLINICAL HISTORY: trauma CT head without contrast Comparison: 08/05/2023 Findings: No evidence of acute territorial infarct. There is minimal patchy low density in the periventricular and subcortical white matter. Minimal volume loss is noted. No hydrocephalus. No hemorrhage, mass effect, mass lesion or midline shift. No abnormal extra-axial fluid. No calvarial fracture. Paranasal sinuses and mastoid air cells are clear. Impression: No acute intracranial process. Chronic changes as detailed. This document has been electronically signed by: Nghia Huston MD on 10/28/2024 10:59:29 Dictated By: Nghia Huston MD Signed By: <Electronically signed by Nghia Huston MD in OV> 10/28/24 1100 DD/ 58 TD/TT: 10/28/24 105 Replacer: Procedure Note Donotuseinterpreter, Image - 10/28/[address] [place] [address] [address] Scan Report Signed Patient: Akiko Cunha#: [id number] : 1955cct:[id number] Age/Sex: 69 / FADM Date: 10/28/24 Loc: HO.ED Attending Dr: Ordering Physician: Chris Galvez Date of Service: 10/28/24 Procedure(s): CT head/brain wo IV con Accession Number(s): [id number] cc: Gilda De La Torre MD; Chris Galvez Report Number: [id number]: Total DLP = 636.00 mGy-cm CLINICAL HISTORY: trauma CT head without contrast Comparison: 08/05/2023 Findings: No evidence of acute territorial infarct. There is minimal patchy low density in the periventricular and subcortical white matter. Minimal volume loss is noted. No hydrocephalus. No hemorrhage, mass effect, mass lesion or midline shift. No abnormal extra-axial fluid. No calvarial fracture. Paranasal sinuses and mastoid air cells are clear. Impression: No acute intracranial process. Chronic changes as detailed. This document has been electronically signed by: Nghia Huston MD on 10/28/2024 10:59:29 Dictated By: Nghia Huston MD Signed By: <Electronically signed by Nghia Huston MD in OV> 10/28/24 1100 DD/ 1059 TD/TT: 10/28/24 105 Replacer: us [facility] External Provider IMG CT PROCEDURES Final Result * CT Cervical Spine w/o Contrast (10/28/2024 10:57 AM EDT) Anatomical Region Laterality Modality Spine, C-spine Computed Tomogra phy 10/28/2024 10:5 7 AM EDT Narrative 10/28/2024 10:59 AM EDT [address] [address] [address] Scan Report Signed Patient: Celeste Cunha MR#: [id number] : 1955 Acct:[id number] Age/Sex: 69 / F ADM Date: 10/28/24 Loc: HO.ED Attending Dr: Ordering Physician: Chris Galvez Date of Service: 10/28/24 Procedure(s): CT cervical spine wo IV con Accession Number(s): [id number] cc: Gilda DeL a Torre MD; Chris Galvez Report Number: [id number]: Total DLP = 305.00 mGy-cm CLINICAL HISTORY: trauma CT cervical spine without contrast Comparison: 08/05/2023 Findings: No fracture or acute malalignment. Degenerative change most pronounced at C5-6 and C6-7. Facet joints are normally imbricating. No prevertebral soft tissue edema. Lung apices demonstrate no acute process. Minimal centrilobular emphysema suggested. Impression: No acute fracture or acute malalignment. Degenerative changes within the lower cervical spine. This document has been electronically signed by: Nghia Huston MD on 10/28/2024 10:57:49 Dictated By: Nghia Huston MD Signed By: <Electronically signed by Nghia Huston MD in OV> 10/28/24 1058 DD/ 105 TD/TT: 10/28/24 105 Replacer: Procedure Note Donotuseinterpreter, Image - 10/28/2024 [address] [address] [address] [address] Scan Report Signed Patient: Akiko Cunha#: [id number] : 6Acct:[id number] Age/Sex: 69 / FADM Date: 10/28/24 Loc: HO.ED Attending Dr: Ordering Physician: Chris Galvez Date of Service: 10/28/24 Procedure(s): CT cervical spine wo IV con Accession Number(s): [id number] cc: Gilda De La Torre MD; Chris Galvez Report Number: [id number]: Total DLP = 305.00 mGy-cm CLINICAL HISTORY: trauma CT cervical spine without contrast Comparison: 08/05/2023 Findings: No fracture or acute malalignment. Degenerative change most pronounced at C5-6 and C6-7. Facet joints are normally imbricating. No prevertebral soft tissue edema. Lung apices demonstrate no acute process. Minimal centrilobular emphysema suggested. Impression: No acute fracture or acute malalignment. Degenerative changes within the lower cervical spine. This document has been electronically signed by: Nghia Huston MD on 10/28/2024 10:57:49 Dictated By: Nghia Huston MD Signed By: <Electronically signed by Nghia Huston MD in OV> 10/28/24 1058 DD/ 1057 TD/TT: 10/28/24 1057 Replacer: [facility] External Provider IMG CT PROCEDURES Final Result * High Sensitivity Troponin I (10/28/2024 10:13 AM EDT) TROPONIN I HIGH SENSITIVITY 5.4 <3.5 - 17.0 ng/L [facility] Comment:The Lacy high sens itivity Troponin-I results should beused in conjunction with other diagnostic information suchas ECG, clinical observations and information, and patientsymptoms to aid in the diagnosis of [place]. 10/28/2024 10:1 3 AM EDT 10/28/2024 10:17 AM EDT Generic External Data Provider LAB BLOOD ORDERAB LES Final Result Performing Organization Address City/[facility]/ZIP Co de Phone Number [facility] [address] [place] [address] [phone] * (ABNORMAL) Creatine Kinase, Total (10/28/2024 10:13 AM EDT) Creatine Kinase Total 433(H) 26 - 140 U/L [facility] 10/28/2024 10:1 3 AM EDT 10/28/2024 10:17 AM EDT [employer] External Data Provider LAB BLOOD ORDERAB LES Final Result Performing Organization Address [facility] de Phone Number [facility] [address] [place] [address] [phone] * (ABNORMAL) Comprehensive Metabolic Panel (10/28/2024 10:13 AM EDT) Pathologist [facility] Sodium 137 135 - 145 mmol/L [facility] Potassium 4.1 3.3 - 5.1 mmol/L [facility] Chloride 104 96 - 108 mmol/L [facility] Carbon Dioxide 23 22 - 29 mmol/L [facility] Anion Gap 14 12 - 20 [facility] Urea Nitrogen (BUN) 16 9 - 16 mg/dL [facility] Creatinine, Serum 0.68 0.5 - 1.4 mg/dL [facility] Creatinine Clr Calc Pharmacy 66.4 [facility] Comment:Provided height and weight: 152.4 cm,64.6 kg.eGFR (calculated from the MDRD study equation) and eCrCl(calculated from the Cockcroft-Gault equation) are based ondifferent parameters and may not yield comparable results.If eCrCl result is absurd, please check patient'sheight/weight. Estimated Glomerular Filt Rate >60 [facility] Comment:Chronic Kidney Disea se: Estimated GFR < 60 mL/min/1.21o1Vsmtdj Kidney Disease: Estimated GFR < 15 mL/min/1.73m2 Glucose 126(H) 60 - 115 mg/dL [facility] Calcium 9.7 8.4 - 10.2 mg/dL [facility] Bilirubin, Total 0.3 0.0 - 1.0 mg/dL [facility] Aspartate Amino Transferase 34(H) 5 - 31 U/L [facility] Alanine Aminotransferase 24 0 - 31 U/L [facility] Total Protein 7.5 6.5 - 8.0 g/dL [facility] Albumin Level 4.2 3.5 - 5.0 g/dL [facility] Alkaline Phosphatase 89 39 - 117 U/L [facility] 10/28/2024 10:1 3 AM EDT 10/28/2024 10:17 AM EDT us Generic External Data Provider LAB BLOOD ORDERAB LES Final Result Performing Organization Address City/State/[facility] Co de Phone Number [facility] [address] [place] [phone] * XR CERVICAL SPINE 3V (10/15/2024 3:18 PM EDT) Anatomical Region Laterality Modality Abdomen Radiographic Ailyn ging 10/15/2024 3:18 PM EDT Narrative 10/15/2024 4:28 PM EDT [address] [address] XRay Report Signed Patient: Celeste Cunha MR#: [id number] : 1955 Acct:[id number] Age/Sex: 69 / F ADM Date: 10/15/24 Loc: HO.HHCX Attending Dr: Naya Haywood NP Ordering Physician: NAYA HAYWOOD NP Date of Service: 10/15/24 Procedure(s): XR cervical spine 3V Accession Number(s): [id number] cc: Gilda De La Torre MD; NAYA [...] 10/15/24 1626 DD/ 1518 TD/TT: 10/15/24 1530 Replacer: Procedure Note Donotuseinterpreter, Image - 10/15/[address] [address] XRay Report Signed Patient: Akiko Cunha#: [id number] : 6Acct:[id number] Age/Sex: 69 / FADM Date: 10/15/24 Loc: HO.HHCX Attending Dr: Naya Haywood NP Ordering Physician: NAYA HAYWOOD NP Date of Service: 10/15/24 Procedure(s): XR cervical spine 3V Accession Number(s): [id number] cc: Gilda De La Torre MD; NAYA [...] 10/15/24 1626 DD/ 1518 TD/TT: 10/15/24 1530 Replacer: Naya Haywood ANP IMG XR PROCEDURES Final Result * XR Shoulder 2+ Views Left (10/15/2024 3:13 PM EDT) Anatomical Region Laterality Modality Upper Extremities, Shoulder Left Radi ographic Imaging 10/15/2024 3:13 PM EDT Narrative 10/15/2024 4:26 [place] [address] XRay Report Signed Patient: Celeste Cunha MR#: [id number] : 1955 Acct:[id number] Age/Sex: 69 / F ADM Date: 10/15/24 Loc: .HHCX Attending Dr: Naya Haywood NP Ordering Physician: NAYA HAYWOOD NP Date of Service: 10/15/24 Procedure(s): XR shoulder LT min 2V Accession Number(s): [id number] cc: Gilda De La Torre MD; NAYA [...] by Tramaine Purdy MD in OV> 10/15/24 1623 DD/ 1513 TD/TT: 10/15/24 1530 Replacer: Procedure Note Donotuseinterpreter, Image - 10/15/2024 [place] [address] XRay Report Signed Patient: Akiko Cunha#: [id number] : 6Acct:[id number] Age/Sex: 69 / FADM Date: 10/15/24 Loc: HO.HHCX Attending Dr: Naya Haywood NP Ordering Physician: NAYA HAYWOOD NP Date of Service: 10/15/24 Procedure(s): XR shoulder LT min 2V Accession Number(s): [id number] cc: Gilda De La Torre MD; NAYA [...] by Tramaine Purdy MD in OV> 10/15/24 1623 DD/ 1513 TD/TT: 10/15/24 1530 Replacer: us Naya Haywood ANP IMG XR PROCEDURES Final Result * Culture, Urine, Routine (09/26/2024 6:32 PM EDT) Urine Urine specimen obtained by clean catch procedure / Unknown 09/26/2024 6:32 PM EDT 09/26/2024 6:32 PM EDT Comment:UACC Narrative [facility] - 09/28/2024 8:52 AM EDT Urine Culture Report Result Urine Culture 50,000 to 100,000 cfu/ml Urine Culture Mixed bacterial himanshu characteristic of Urine Culture urogenital contamination. Specimen Source: Urine clean catch Jo [employer]au[employer] LAB MICROBIOLOGY - GENERAL ORD ERABLES Final Result [facility] [address] [place] [phone] * (ABNORMAL) POCT Urinalysis (09/26/2024 3:49 [...] 82 Urine 09/26/2024 3:49 PM EDT Jo Okhipo [employer] POINT OF CARE TEST ENTER/EDIT ORDERABLES Final Result * POCT Glucose (09/19/2024 2:31 PM EDT) Glucose Blood, POC 70 60 - 200 mg/dL QC Media Lot # [id number] Lot# Expiration Date 72 Blood Capillary blood specimen / Unknown 09/19/2024 2:31 PM EDT us Gilda Maynard MD POINT OF CARE TEST EN TER/EDIT ORDERABLES Final Result * (ABNORMAL) POCT HGB A1C (09/19/2024 2:29 PM EDT) Hemoglobin A1C 8.2(A) 4.0 - 5.7 % QC Media Lot # [id number] Lot# Expiration Date Blood 09/19/2024 2:29 PM EDT us Gilda Maynard MD POINT OF CARE TEST EN TER/EDIT ORDERABLES Final Result * (ABNORMAL) Albumin, Random Urine W/Creatinine (05/14/2024 3:16 PM EDT) Creatinine, Urine 33.29 mg/dL [facility] Microalbumin Urine 46.0 mg/L [facility] Microalbum Creatinine Ratio Ur 138.1(H) <30 ug/mg cr [facility] Comment:Albumin/Creatinine R atio Reference Ranges: Normal: < 30 ug/mg creatinine Microalbuminuria: 30 - 300 ug/mg creatinineClinical Albuminuria: > 300 ug/mg creatinine 05/14/2024 3:16 PM EDT 05/14/2024 4:40 PM EDT us Gilda Maynard MD LAB URINE ORDERABLES Final Result [facility] [address] [place] [phone] * Lipid Panel, Standard (05/12/2024 8:02 AM EDT) Triglycerides 59 <150 mg/dL [facility] Comment:Desirable Triglyceri de: less than 150 mg/dLBorderline High Triglyceride 150-199 mg/dLHigh Triglyceride: 200-499 mg/dLVery High Triglyceride: greater than or equal to 5OO mg/dL Cholesterol 135 <200 mg/dL [facility] Comment:Desirable Cholestero l: less than 200 mg/dLBorderline High Cholesterol: 200-239 mg/dLHigh Cholesterol: greater than 239 mg/dL LDL Cholesterol Calculated 68 <100 mg/dL [facility] Comment:Desirable LDL: less than 100 mg/dLNear Optimal/Above Optimal LDL: 110- 129 mg/dLBorderline High LDL: 130-159 mg/dLHigh LDL: 160-189 mg/dLVery High LDL: greater than or equal to 190 mg/dL HDL Cholesterol 56 >40 mg/dL [facility] Comment:Desirable HDL: great er than 40 mg/dL Note: This HDL assay may give artificially low results in patients with liver disease. Blood Venous blood specimen / Unknown 05/12/2024 8:02 AM EDT 05/12/2024 8:02 AM EDT us Gilda Maynard MD LAB BLOOD ORDERABLES Final Result [facility] [address] [place] [phone] [phone] * Mammography (03/15/2024 2:11 PM EST) Anatomical Region Laterality Modality Other us Historical Provider HEALTH MAINTENANCE Final Result from Last 3 Months or Most Recently Relevant to Health Maintenance Insurance * Guarantor: Celeste Cunha Account Type Relation to Patient Date of Phone Billing Address Personal/Family Self [address] [place] [address] [employer] (O D-SNP) * Guarantor: Celeste Cunha Account Type Relation to Patient Date of Phone Billing Address Dental Self [address] [place] [address] [facility] * Guarantor: Celeste Cunha Account Type Relation to Patient Date of Phone Billing Address Personal/Family Self [address] [place] [address] * Guarantor: Celeste Cunha Account Type Relation to Patient Date of Phone Billing Address Personal/Family Self [address] [place] [address] * Guarantor: Celeste Cunha Account Type Relation to Patient Date of Phone Billing Address Personal/Family Self [address] [place] [address] Care Teams Histologist Technologist Relationship Specialty Start Date End Date Gilda De La Torre MD [address] [place] [address] PCP - General Family Medicine 10/25/21 Toya Kyle, RosaD [address] [place], [place] Pharmacist Internal Medicine 11/06/23
--- OUTSIDE RECORDS SUMMARY | 2024-11-03 18:53 | XMS_ITS | Encounter Summary ---
Author Organization [employer] Address [address] [place] [address] Care Team Providers Care Barrel Liner Name Role Phone Gilda De La Torre MD Primary Care Provide r Toya Kyle PharmD Unavailable [phone]- [phone] Reason for Visit * Reason Comments Med Refill Encounter Details Date Type Department Care Team (Late st Contact Info) Description 10/27/2024 Refill [facility]INE [address] [place], [place] [phone] Gilda De La Torre MD [address] [place], [place] [phone] Type 2 diabetes mellitus with hyperglycemia, with long-term current use of insulin ([facility]) Social History Tobacco Use Types Packs/Day Years [...] Description 11/07/2024 2:00 PM EDT Medication Management [facility] MEDICINE [address] [place] [address] Toya Kyle, PharmD [address] [place] [address] 01/30/2025 11:00 AM EST Office Visit [facility] OPTOMETRY [address] [place] [address] Meme Coivngton, OD [address] [place] [address] documented as of this encounter Visit Diagnoses Diagnosis Type 2 diabetes mellitus with hyperglycemia, with long-term current use of insulin ([facility]) documented in this encounter Additional Health Concerns Assessment Noted Time PHQ-9 Depression Total Score: 10 025 2:47 PM EDT documented as of this encounter Care Teams Barrel Liner Relationship Specialty Start Date End Date Gilda De La Torre MD [address] [place] [address] PCP - General Family Medicine 10/25/21 Toya Kyle, RosaD [address] [place] [address] Pharmacist Internal Medicine 11/06/23 documented as of this encounter
--- OUTSIDE RECORDS SUMMARY | 2024-11-03 18:53 | XMS_ITS | Encounter Summary ---
Author Organization [employer] Address [address] [place] [address] Care Team Providers Care Retail Sales Teammate Name Role Phone Gilda De La Torre MD Primary Care Provide r Toya Kyle PharmD Unavailable [phone] Encounter Details Date Type Department Care Team (Late st Contact Info) Description 11/02/2023 Telephone [facility] MEDICINE [address] [place] [address] Toya Kyle, PharmD [address] [place] [address] Social History Tobacco Use Types Packs/Day Years [...] for this patient to enroll care in [facility] - Diabetes clinic. Please send at your earliest convenience. documented in this encounter Plan of Treatment Upcoming Encounters Date Type Department Care Team (Late st Contact Info) Description 11/07/2024 2:00 PM EDT Medication Management [facility] MEDICINE [address] [place], [place] [phone] Toya Kyle PharmD [address] [place] [address] 01/30/2025 11:00 AM EST Office Visit [facility] OPTOMETRY [address] [place], [place] [phone] Meme Covington, OD [address] [place] [address] documented as of this encounter Visit Diagnoses Diagnosis Type 2 diabetes mellitus with hyperglycemia, with long-term current use of insulin ([facility] Primary documented in this encounter Additional Health Concerns Assessment Noted Time PHQ-9 Depression Total Score: 0 09/23/19 24 3:00 PM EDT documented as of this encounter Care Teams Retail Sales Teammate Relationship Specialty Start Date End Date Gilda De La Torre MD [address] [place] [address] PCP - General Family Medicine 10/25/21 Toya Kyle PharmD [address] [place] [phone] Pharmacist Internal Medicine 11/06/23 documented as of this encounter
--- OUTSIDE RECORDS SUMMARY | 2024-11-03 18:53 | XMS_ITS | Encounter Summary ---
Author Organization [employer] Address [address] [place] [address] Care Team Providers Care [employer] Social Studies Tutor Name Role Phone Gilda De La Torre MD Primary Care Provide r Toya Kyle PharmD Unavailable [phone] Reason for Visit * Reason Onset Date Comments Appointment Request 08/10/2024 Encounter Details Date Type Department Care Team ([facility] st Contact Info) Description 08/10/[address] [facility] MEDICINE [address] [place], [place] [phone] Gilda De La Torre MD [address] [place], [place] [phone] Appointment Request Social History Tobacco Use Types [...] AM EDT documented as of this encounter Functional Status * Over the past 2 weeks, how often have you been bothered by any of the following problems? Question Answer Date of Assessment Author Patient Health Questionnaire-2 Score 2 09/28 2:47 PM EDT Charlee Staples [place] * Little interest or pleasure in doing things Answer Date of Assessment Author Several days 10/15/2024 2:47 PM EDT Wilberto Staples [place] * Feeling down, depressed, or hopeless Answer Date of Assessment Author Several days 10/15/2024 2:47 PM EDT Wilberto Staples MA * Trouble falling or staying asleep, or sleeping too much Answer Date of Assessment Author More than half the days 10/15/2024 2:47 PM EDT Charlee Clemons MA * Feeling tired or having little energy Answer Date of Assessment Author More than half the days 10/15/2024 2:47 PM EDT Charlee Clemons MA * Poor appetite or overeating Answer Date of Assessment Author Several days 10/15/2024 2:47 PM EDT Wilberto Staples MA * Feeling bad about yourself - or that you are a failure or have let yourself or your family down Answer Date of Assessment Author Several days 10/15/2024 2:47 PM EDT Wilberto Staples MA * Trouble concentrating on things, such as reading the newspaper or watching television Answer Date of Assessment Author Several days 10/15/2024 2:47 PM EDT Wilberto Staples MA * Moving or speaking so slowly that other people could have noticed? Or the opposite - being so fidgety or restless that you have been moving around a lot more than usual. Answer Date of Assessment Author Several days 10/15/2024 2:47 PM EDT Wilberto Staples MA * Thoughts that you would be better off or hurting yourself in some way Answer Date of Assessment Author Not at all 10/15/2024 2:47 PM EDT Wilberto Staples MA * Patient Health Questionnaire-9 Score Answer Date of Assessment Author 10 10/15/2024 2:47 PM EDT Wilberto Staples MA * How difficult have these problems made it for you to do your work, take care of things at home, or get along with other people? Answer Date of Assessment Author Somewhat difficult 10/15/2024 2:47 PM EDT Charlee Staples MA * Over the last 2 weeks, how often have you been bothered by any of the following problems? Question Answer Date of Assessment Author Feeling nervous, anxious, or on edge 2 09/19/2024 3:01 PM EDT Jeri Alford MA Not being able to stop or control worrying 2 09/19/2024 3:01 PM EDT Jeri Alford MA Worrying too much about different things 2 09/19/2024 3:01 PM EDT Jeri Alford MA Trouble relaxing 2 09/19/2024 3:01 PM EDT Jeri Herrera MA Being so restless that it is hard to sit still 1 09/19/2024 3:01 PM EDT Jeri Alford MA Becoming easily annoyed or irritable 1 09/19/2024 3:01 PM EDT Jeri Alford MA Feeling afraid as if something awful might happen 0 09/19/2024 3:01 PM EDT Jeri Alford MA WENDY-7 Total Score 10 09/19/2024 3:01 PM EDT Jeri Alford MA documented as of this encounter Miscellaneous Notes * Telephone Encounter - Ruthy Abbott - 08/10/2024 1:05 PM EDT TC from pt requesting a call back to reschedule CDTM apt on 08/22/24 Contact pt at [phone] documented in this encounter Plan of Treatment Upcoming Encounters Date Type Department Care Team (Late st Contact Info) Description 11/07/2024 2:00 PM EDT Medication Management [facility] MEDICINE [address] [place] [address] Toya Kyle, PharmD [address] [place] [address] 01/30/2025 11:00 AM EST Office Visit [facility] OPTOMETRY [address] [place] [address] Meme Covignton, OD [address] [place] [address] documented as of this encounter Visit Diagnoses Not on filedocumented in this encounter Additional Health Concerns Assessment Noted Time PHQ-9 Depression Total Score: 0 09/23/19 24 3:00 PM EDT documented as of this encounter Care Teams High School Social Studies Tutor Relationship Specialty Start Date End Date Gilda De La Torre MD [address] [place] [address] PCP - General Family Medicine 10/25/21 Toya Kyle, RosaD [address] [place] [phone] Pharmacist Internal Medicine 11/06/23 documented as of this encounter
--- OUTSIDE RECORDS SUMMARY | 2024-11-03 18:53 | XMS_ITS | Encounter Summary ---
Demographics Address [address] [place] [address] Mobile Phone Work Phone Home Phone Preferred Language es Marital Status Single Oriental Orthodox Affiliation Unknown Race Other Race Ethnic Group Unknown Author Organization [employer] Address [address] [place] [address] Care Team Providers Care Business Administration Program Chair Name Role Phone Gilda De La Torre MD Primary Care Provide r Toya Kyle PharmD Unavailable [phone] Encounter Details Date Type Department Care Team (Late st Contact Info) Description 11/03/2024 Orders Only GENERIC EXTERNAL DATA DEPARTMENT Provider, Generic External Data Social History Tobacco Use Types Packs/Day Years [...] Description 11/07/2024 2:00 PM EDT Medication Management [facility] MEDICINE [address] [place] [address] Toya Kyle, PharmD [address] [place] [address] 01/30/2025 11:00 AM EST Office Visit [facility] OPTOMETRY [address] [place] [address] Adria, Megan, OD [address] [place] [address] documented as of this encounter Procedures Procedure Name Priority Date/Time Associated Diagnosis Comments CBC WITH AUTO DIFFERENTIAL Routine 11/03/2024 6:39 PM EDT documented in this encounter Results * (ABNORMAL) CBC auto differential (11/03/2024 6:39 PM EDT) White Blood Count 9.1 4.8 - 10.8 X10*3/uL [facility] Red Blood Count 3.80(L) 4.20 - 5.50 X10*6/uL [facility] Hemoglobin 10.3(L) 12.0 - 16.0 g/dl [facility] Hematocrit 30.7(L) 37.0 - 47.0 % [facility] Mean Corpuscular Volume 80.8 80.0 - 98.0 fL [facility] Mean Corpuscular Hemoglobin 27.1 27.0 - 33.0 pg [facility] Mean Corpuscular HGB Conc 33.6 31.0 - 35.0 g/dl [facility] Red Cell Distribution Width 14.0 11.0 - 16.0 % [facility] Platelet Count 205 160 - 400 X10*3/uL [facility] Mean Platelet Volume 11.7 9.4 - 12.3 fL [facility] Neutrophils Percent Auto 55.7 45 - 73 % [facility] Imm Gran Pct Auto 0.2 0.0 - 0.4 % [facility] Lymphocytes Percent Auto 33.3 20 - 40 % [facility] Monocytes Percent Auto 8.4 2 - 11 % [facility] Eosinophils Percent Auto 2.1 0 - 4 % [facility] Basophils Percent Auto 0.3 0 - 2 % [facility] NRBC Pct Auto 0.0 0.0 - 0.2 /100WBC [facility] Neutrophils Absolute Auto 5.0 2.0 - 8.3 x10*3/uL [facility] Imm Gran Abs Auto 0.02 0.00 - 0.03 X10*3/uL [facility] Lymphocytes Absolute Auto 3.0 1.2 - 4.9 X10*3/uL [facility] Monocytes Absolute Auto 0.8 0.1 - 1.2 X10*3/uL [facility] Eosinophils Absolute Auto 0.2 0.0 - 0.4 X10*3/uL [facility] Basophils Absolute Auto 0.0 0.0 - 0.2 X10*3/uL [facility] NRBC Abs Auto 0.000 0.0 - 0.012 X10*3/uL [facility] 11/03/2024 6:39 PM EDT 11/03/2024 6:42 PM EDT us Generic External Data Provider LAB BLOOD ORDERAB LES Final Result [facility] [address] [place] [phone] [phone] documented in this encounter Visit Diagnoses Not on filedocumented in this encounter Additional Health Concerns Assessment Noted Time PHQ-9 Depression Total Score: 10 025 2:47 PM EDT documented as of this encounter Care Teams Business Administration Program Chair Relationship Specialty Start Date End Date Gilda De La Torre MD [address] [place] [address] PCP - General Family Medicine 10/25/21 Toya Kyle, PharmD [address] [place] [address] Pharmacist Internal Medicine 11/06/23 documented as of this encounter
--- OUTSIDE RECORDS SUMMARY | 2024-11-03 18:53 | XMS_ITS | Encounter Summary ---
Demographics Address [address] [place] [address] Mobile Phone Work Phone Home Phone Preferred Language es Marital Status Single Islam Affiliation Unknown Race Other Race Ethnic Group Unknown Author Organization [employer] Address [address] [place] [address] Care Team Providers Care Supervisor Assembly Stock Name Role Phone Gilda De La Torre MD Primary Care Provide r Toya Kyle PharmD Unavailable [phone] Encounter Details Date Type Department Care Team (Late st Contact Info) Description 10/29/2024 Orders Only GENERIC EXTERNAL DATA DEPARTMENT [...] Description 11/07/2024 2:00 PM EDT Medication Management [facility]IC[facility] [address] [place] [address] Toya Kyle, PharmD [address] [place] [address] 01/30/2025 11:00 AM EST Office Visit [facility] OPTOMETRY [address] [place] [address] AdriaeMme, OD [address] [place] [address] documented as of this encounter Procedures Procedure Name Priority Date/Time Associated Diagnosis Comments GLUCOSE, WHOLE BLOOD Routine 10/29/2024 11:08 AM EDT GLUCOSE, WHOLE BLOOD Routine 10/29/2024 7:24 AM EDT documented in this encounter Results * (ABNORMAL) Glucose, Whole Blood (10/29/2024 11:08 AM EDT) Glucose, Whole Blood 208(H) 60 - 115 mg/dL [facility] Comment:METER #: [id number] 10/29/2024 11:0 8 AM EDT 10/29/2024 11:10 AM EDT us Generic External Data Provider LAB BLOOD ORDERAB LES Final Result Performing Organization Address City/[facility]/ZIP Co de Phone Number [facility] [address] [place] [address] [phone] * Glucose, Whole Blood (10/29/2024 7:24 AM EDT) Glucose, Whole Blood 100 60 - 115 mg/dL [facility] Comment:METER #: [id number] 10/29/2024 7:2 4 AM EDT 10/29/2024 8:05 AM EDT us Generic External Data Provider LAB BLOOD ORDERAB LES Final Result Performing Organization Address City/[facility]/ZIP Co de Phone Number [facility] [address] [place] [phone] documented in this encounter Visit Diagnoses Not on filedocumented in this encounter Additional Health Concerns Assessment Noted Time PHQ-9 Depression Total Score: 10 025 2:47 PM EDT documented as of this encounter Care Teams Supervisor Assembly Stock Relationship Specialty Start Date End Date Gilda De La Torre MD [address] [place] [address] PCP - General Family Medicine 10/25/21 Toya Kyle PharmD [address] [place] [address] Pharmacist Internal Medicine 11/06/23 documented as of this encounter
[2024-11-03 19:01] LABS: Alanine Aminotransferase 24 U/L (0-31); Albumin Level 4.1 g/dL (3.5-5.0); Alkaline Phosphatase 85 U/L (39-117); Anion Gap 13 (12-20); Aspartate Amino Transferase 30 U/L (5-31); Blood Urea Nitrogen 21 mg/dL (9-16); Calcium 9.3 mg/dL (8.4-10.2); Carbon Dioxide 24 mmol/L (22-29); Chloride 100 mmol/L (96-108); Creatinine Clr Calc Pharmacy 47.8; Estimated Glomerular Filt Rate > 60; Magnesium 1.6 mg/dL (1.6-2.6); Potassium 3.8 mmol/L (3.3-5.1); Sodium 133 mmol/L (135-145); Total Protein 7.2 g/dL (6.5-8.0)
[2024-11-03 19:07] LABS: Troponin-I High Sensitivity 4.3 ng/L (<3.5-17.0)
[2024-11-03 22:54] VITALS: BP 101/63; PULSE 61; TEMP 36.5; O2SAT 95
[2024-11-03 22:54] LABS: Appearance Urine Clear; Glucose Urine UA Negative (Negative); PH 6.5 (5.0-9.0); Specific Gravity - Urine <= 1.005 (1.005-1.025); UMIC TRIGGER UACC YES
[2024-11-03 22:59] LABS: UACC Culture Trigger YES
--- NOTE | 2024-11-03 23:05 | PC.NURSE ---
Took over care from THI Tineo, at this time pt resting in stretcher. Will complete prior assessment.
--- NOTE | 2024-11-03 23:09 | PC.NURSE ---
Late entry for 1999. warehouse operator relocated patient from ed bed 16 to a hallway bed while she awaits the results of her imaging. The pt was found to be laying supine with c-collar in place, skin warm and dry, respirations even and unlabored without distress noted. Pt woke for a brief period of time when being made aware of the bed change but quickly drifted back to sleep. Staff will reassess, collar remains in place until cleared. Staff aware of the need for UA
--- NOTE | 2024-11-03 23:54 | PC.NURSE ---
Late entry for approx 0. The pt was awakened and asked to provide a urine sample. She was noted to be a 1 person standby assist with use of rollator. Urine sample obtained and was sent down to the lab for processing.
[2024-11-04] VITALS (10 sets, daily range): BP systolic 115–163; BP diastolic 46–83; PULSE 61–70; RESP 10–18; TEMP 36.4–36.9; O2SAT 92–98; BMI 24.8
--- NOTE | 2024-11-04 00:24 | PC.NURSE ---
pt medicated per apr, pt changed into hospital attire, placed on bedside moniotr.
--- NOTE | 2024-11-04 00:42 | PM.IMHP ---
History of Present Illness Date of Service: 11/04/24 Attending physician on admission: Brenda Menjivar Chief Complaint: Fall. Celeste Cunha is a 69 years old woman with past medical history significant for type 2 diabetes mellitus on insulin, hyperlipidemia, dementia, schizophrenic disorder, depression/anxiety and essential hypertension was brought to the emergency department after sustaining a fall yesterday at 14:00 while ambulating. She said that she fell because her legs became weaker and denied dizziness. She uses a walker for ambulation. She reports head trauma and bilateral knee trauma. She also denied palpitations, shortness on breath or chest pain. She also denied loss of consciousness. Patient reported one event of self-limited watery nonbloody diarrhea. She does complain of pelvic tenderness and pain with urination. She has an ongoing tobacco smoker since age 18 -currently smoking 3 cigarettes daily. Denied alcohol abuse or illicit drug use. Patient lives alone. In the ED, she was found to blood workup including CBC and CBC are unremarkable except for glucose 219. Total CK is 353. Urinalysis showed large leukocyte esterase and WBC 11-20. Head CT scan showed no acute intracranial abnormalities. C-spine CT scan showed no acute dislocation or fractures. Left shoulder showed no acute findings. ECG showed right bundle branch block and no ischemic changes. ED tx: None. Review of Systems Review of Systems: All 12 systems were reviewed and normal except as noted in HPI. [facility] Medical History Breast calcification, left Disc degeneration, lumbar Dermatophytosis Dermatitis Joint pain Depression with anxiety Schizoaffective disorder PTSD (post-traumatic stress disorder) Dementia Smoking CAD (coronary artery disease) Type 2 diabetes mellitus with chronic kidney disease Chronic kidney disease, stage 3 unspecified Type 2 diabetes mellitus with diabetic polyneuropathy Essential hypertension Dyslipidemia Diabetes mellitus with hyperglycemia Family History Father No problems noted. Mother No problems noted. Surgical History Hx of colonoscopy Hx of cataract surgery Hx of tubal ligation Hx of section Social History Household Members: None Household Members Other:: has CHD Services Housing: Apartment Do you presently have visiting nurse or other home services: Yes Unable to assess alcohol history related to: Unknown Alcohol intake: former Patient Tobacco Use Status: Current everyday Tobacco user Tobacco use type: Cigarette Cigarette Packs Per Day: 1 Cigarettes Per Day: 4 Smoked in Last 30 Days: Yes Second Hand Smoke Exposure: No Use of substances other than those prescribed or required for medical reasons: No Advance Directives: No Advance Directives Information Provided: No Advance Directives Date on File: 09/30/20 service: No Sexual orientation: Straight/Heterosexual Meds Allergies Allergy/AdvReac Type Severity Reaction Status Date / Time duloxetine (Cymbalta) Allergy Unknown Unknown Verified 11/03/24 18:19 hydroxyzine Allergy Unknown unknown Verified 11/03/24 18:19 risperidone Allergy Unknown Unknown Verified 11/03/24 18:19 trazodone Allergy Unknown Unknown Verified 11/03/24 18:19 quetiapine (From SEROQUEL) AdvReac Severe Acute Verified 11/03/24 18:19 Dystonic reaction Active Medications: Current Medications Acetaminophen (Acetaminophen 325 Mg Tablet) 975 mg PO Q6H PRN PRN Reason: Pain, Mild 1-3,fever,headache Calcium Carbonate (Calcium Carbonate 750 Mg Tab.Chew) 750 mg PO Q4H PRN PRN Reason: Heartburn Ceftriaxone Sodium (Ceftriaxone Sodium 1 Gm Vial) 1 gm IVPUSH Q24H [facility] Last Admin: 11/04/24 00:15 Dose: 1 gm Dextrose (Dextrose 50 % 25 Gm/50 Ml Syringe) 25 gm IVPUSH Q15M PRN; Protocol PRN Reason: per Hypoglycemia Standing Ord. Glucose (Glucose Gel 15 Gm Gel..Gram.) 15 gm PO Q15M PRN; Protocol PRN Reason: per Hypoglycemia Standing Ord. Lactated Ringer's (Lr) 1,000 mls @ 999 mls/hr IV .Q1H1M STA Stop: 11/04/24 01:36 Insulin Human Lispro (Insulin Lispro 100 Unit/Ml 3 Ml Vial) 0 unit [facility]BC[facility]; Protocol Magnesium Hydroxide (Milk Of Magnesia 30 Ml Oral.Susp) 30 ml PO DAILY PRN PRN Reason: Constipation Melatonin (Melatonin 3 Mg Tablet) 6 mg PO BEDTIME PRN PRN Reason: Insomnia Sodium Chloride (0.9 % Sodium Chloride Flush 3 Ml Syringe) [facility] Medications ?Medication ?Instructions ?Recorded ?Confirmed ?Last Taken ?Type atorvastatin 80 mg tablet 80 mg PO DAILY 01/19/24 10/28/24 Unknown History buspirone 10 mg tablet 10 mg PO TID 01/19/24 10/28/24 Unknown History furosemide 20 mg tablet 20 mg PO DAILY 01/19/24 10/28/24 Unknown History lisinopril 10 mg tablet 10 mg PO DAILY 01/19/24 10/28/24 Unknown History metformin 500 mg tablet 500 mg PO BID 01/19/24 10/28/24 Unknown History metoprolol tartrate 25 mg tablet 25 mg PO BID 01/19/24 10/28/24 Unknown History acetaminophen 650 mg 1,300 mg PO BID PRN mild pain 01/20/24 10/28/24 Unknown History tablet,extended release aripiprazole 20 mg tablet 20 mg PO QAM 01/20/24 10/28/24 Unknown History gabapentin 100 mg capsule 200 mg PO QAM 01/20/24 10/28/24 Unknown History insulin lispro 100 unit/mL 1 sliding scale dose subcut 01/20/24 10/28/24 Unknown History subcutaneous pen (Humalog KwikPen USEASDIRECTD (U-100) Insulin) lamotrigine 200 mg tablet 200 mg PO QAM 01/20/24 10/28/24 Unknown History omeprazole 20 mg capsule,delayed 20 mg PO BID 01/20/24 10/28/24 Unknown History release sertraline 100 mg tablet 150 mg PO QAM 01/20/24 10/28/24 Unknown History dulaglutide 0.75 mg/0.5 mL 1.5 mg subcut QWEEK 07/18/24 10/28/24 Unknown History subcutaneous pen injector (Trulicity) aspirin 81 mg tablet,delayed 81 mg PO DAILY 10/29/24 Unknown History release insulin glargine 100 unit/mL (3 unit subcut 10/29/24 Unknown History mL) subcutaneous pen (Lantus Solostar U-100 Insulin) lorazepam 0.5 mg tablet 0.5 mg PO QPM 10/29/24 Unknown History olanzapine 5 mg tablet 5 mg PO BEDTIME 10/29/24 Unknown History pantoprazole 40 mg tablet,delayed 40 mg PO QAM 10/29/24 Unknown History release quetiapine 50 mg tablet 50 mg PO BEDTIME PRN Agitation 10/29/24 10/29/24 Unknown History Physical Exam Vital Signs and Narrative: Vital Signs: Last Vital Signs Temp 97.7 F 11/03/24 22:54 Pulse 67 11/04/24 00:09 Resp 15 11/03/24 18:22 BP 122/83 11/04/24 00:09 Pulse Ox 95 11/03/24 22:54 O2 Del Method Room Air 11/03/24 22:54 BMI result Body Mass Index 23.8 Constitutional - Awake and Alert, No apparent distress HEENT - atraumatic head. Normocephalic. PERRL, EOMI Heart - S1S2, RRR, No edema Lungs - Normal lung expansion, Normal respiratory effort, No respiratory distress, CTA bilaterally Abdomen - Nondistended / pelvic tenderness; increased BS; No rebound or guarding Extremities - no calf tenderness bilaterally, no swelling. Both knees: Complete ROM but tenderness to flexion. No overt effusion or open wounds. Musculoskeletal - Normal inspection, normal ROM Skin - Warm/Dry Neurological - Alert & oriented x3. Moving all extremities spontaneously. Psychological - Appropriate affect Results Labs 11/03/24 18:39 11/03/24 18:39 Labs: Laboratory Results - last 24 hr 11/03/24 11/03/24 18:39 22:15 MCV 80.8 MCH 27.1 MCHC 33.6 RDW 14.0 Plt Count 205 MPV 11.7 Immature Gran % (Auto) 0.2 Neut % (Auto) 55.7 Lymph % (Auto) 33.3 [place] % (Auto) 8.4 Eos % (Auto) 2.1 Baso % (Auto) 0.3 Lymph # (Auto) 3.0 [place] # (Auto) 0.8 Eos # (Auto) 0.2 Baso # (Auto) 0.0 Abs Immat Gran (auto) 0.02 Absolute Neuts (auto) 5.0 Absolute Nucleated RBC 0.000 Nucleated RBC % (auto) 0.0 Anion Gap 13 Estim Creat Clear Calc 47.8 Estimated GFR > 60 Random Glucose 219 H Calcium 9.3 Magnesium 1.6 Total Bilirubin 0.2 AST 30 ALT 24 Alkaline Phosphatase 85 Total Creatine Kinase 356 H Total Protein 7.2 Albumin 4.1 Urine Color Yellow Urine Appearance Clear Urine pH 6.5 Ur Specific [place] <= 1.005 Urine Protein Negative Urine Glucose (UA) Negative Urine Ketones Negative Urine Blood Negative Urine Nitrite Negative Ur Leukocyte Esterase Large (3+) H Urine RBC 0-2 Urine WBC 11-20 H Ur Squamous Epith Cells 0-2 Urine Bacteria None Seen Hyaline Casts 0-2 Assessment and Plan (1) Diabetes mellitus with hyperglycemia: Status: Acute (2) Fall: Qualifiers: Encounter type: initial encounter Qualified Code(s): W19.XXXA - Unspecified fall, initial encounter Status: Acute (3) UTI (urinary tract infection): Status: Acute Plan Celeste Cunha is a 69 y/o woman with a PMHx significant for dementia and bifascicular block presents with: ?dizziness. Telemetry. Recheck troponin. Check orthostatic vital signs qshift. Check TTE. Presumed urinary tract infection, symptomatic. Start empiric IV antibiotic therapy with ceftriaxone. Check urine culture. Elevated total CK, not consistent with rhabdomyolysis. LR 1 L bolus. Recheck total CK. s/p fall. Fall precautions. Physiotherapy. Check vitamin-D level. Case management consult -multiple visits to the ED due to falls, patient lives alone. Bilateral knee pain, trauma. No fractures. Tylenol as needed. Type 2 diabetes mellitus. Continue Lantus and metformin. Insulin sliding scale. On Trulicity at home (NF). Diabetic diet. Mood disorder. Continue home meds. Hyperlipidemia. Continue statin. Essential hypertension. Continue metoprolol and lisinopril. GERD. Continue PPI Med rec pending Code status: Full DVT prophylaxis: SCDs Patient will need hospitalization for at least 2 midnights for evaluation of dizziness with continuous cardiac monitoring and further cardiac workup, IV antibiotic therapy for UTI and evaluation by case management for possible placement if appropriate. This note is constructed using voice recognition software. While every effort has been made to ensure accuracy, tie sawyer errors may have been included. Quality Stroke Does the patient have a stroke diagnosis?: No VTE Prior VTE?: No VTE Risk Level:: Medical - moderate - high VTE Device Contraindication: N/A - Device Ordered VTE Drug Contraindication: N/A - Med Ordered
[2024-11-04] MEDS: Lactated Ringers 1,000 ML 999 ML IV (00:44)
--- NOTE | 2024-11-04 00:45 | PC.NURSE ---
pt medicated per mar.
--- NOTE | 2024-11-04 02:14 | PC.NURSE ---
pt placed on bed mckinney, bowel movement, medicated per mar. completed bed change.
--- NOTE | 2024-11-04 05:04 | PC.NURSE ---
pt repositioned for comfort.
[2024-11-04 05:07] LABS: Hematocrit 31.8 % (37.0-47.0); Hemoglobin 10.5 g/dl (12.0-16.0); Imm Gran Abs Auto 0.01 X10*3/uL (0.00-0.03); Imm Gran Pct Auto 0.1 % (0.0-0.4); Lymphocytes Absolute Auto 2.3 X10*3/uL (1.2-4.9); MANUAL DIFF FLAG NO; Mean Corpuscular HGB Conc 33.0 g/dl (31.0-35.0); Mean Corpuscular Hemoglobin 26.9 pg (27.0-33.0); Mean Corpuscular Volume 81.5 fL (80.0-98.0); NRBC Abs Auto 0.000 X10*3/uL (0.0-0.012); NRBC Pct Auto 0.0 /100WBC (0.0-0.2); Platelet Count 194 X10*3/uL (160-400); Red Blood Count 3.90 X10*6/uL (4.20-5.50); White Blood Count 7.6 X10*3/uL (4.8-10.8)
[2024-11-04 05:25] LABS: Anion Gap 12 (12-20); Blood Urea Nitrogen 19 mg/dL (9-16); Calcium 9.5 mg/dL (8.4-10.2); Carbon Dioxide 24 mmol/L (22-29); Chloride 105 mmol/L (96-108); Creatinine Clr Calc Pharmacy 49.5; Estimated Glomerular Filt Rate > 60; Magnesium 1.6 mg/dL (1.6-2.6); Potassium 4.4 mmol/L (3.3-5.1); Sodium 137 mmol/L (135-145)
--- NOTE | 2024-11-04 05:26 | PM.EVENT ---
Event Note Date of Service: 11/04/24 Event Note: Ordered lumbar MRI. Paitent c/o lower extremities edema resulting in falls. Time Spent With Patient Time: Total time managing care of this patient today ____ minutes.
[2024-11-04 05:34] LABS: Troponin-I High Sensitivity < 2.7 ng/L (<3.5-17.0)
--- NOTE | 2024-11-04 05:38 | PC.NURSE ---
pure wick in place.
[2024-11-04] MEDS: 0.9 % Sodium Chloride Flush 3 ML SYRINGE IVFLUSH ×3 (07:29→22:10)
[2024-11-04 07:47] LABS: Glucose, Whole Blood 155 mg/dL (60-115)
--- NOTE | 2024-11-04 11:47 | PHA.MEDREC ---
Pharmacy Consult ? Medication Reconciliation Pharmacy has attempted the medication reconciliation. Spoke to patients son at bedside to confirm med list. son states patient has a visiting nurse that comes daily. Visiting nurse is from [facility] [phone] they sen a different nurse daily. Called [facility] , however they are closed, I spoke to answering service and left a message @ 9:30am. Will have Morning med rec tech follow up Tuesday morning if they don't call back.
[2024-11-04 12:49] LABS: Glucose, Whole Blood 118 mg/dL (60-115)
--- NOTE | 2024-11-04 13:10 | PC.NURSE ---
Patient linens changed, repositioned in bed. Purewick in place, connected to wall suction. Care ongoing by this RN.
--- NOTE | 2024-11-04 14:03 | P.PNIM_ITS ---
Subjective Subjective Date of Service: 11/04/24 Interval History: This history was taken in Italian from the patient. denies LOC no dysuria c/o back pain Physical Exam 2 Vital Signs: Vital Signs: Last Vital Signs Temp 97.6 F 11/04/24 07:13 Pulse 61 11/04/24 07:13 Resp 18 11/04/24 07:13 BP 132/59 L 11/04/24 07:13 Pulse Ox 92 11/04/24 07:13 O2 Del Method Room Air 11/04/24 07:13 BMI result Body Mass Index 23.8 Gen: in no acute distress HEENT: sclera anicteric, moist mucus membranes Neck: supple Lungs: clear to auscultation bilaterally Heart: regular rate and rhythm, no murmurs Abd: soft, non-tender, non-distended Ext: no edema Skin: warm/well-perfused Neuro: alert and oriented x3, no focal findings Psych: appropriate affect Objective Data Active Medications Acetaminophen (Acetaminophen 325 Mg Tablet) 975 mg PO Q6H PRN PRN Reason: Pain, Mild 1-3,fever,headache Calcium Carbonate (Calcium Carbonate 750 Mg Tab.Chew) 750 mg PO Q4H PRN PRN Reason: Heartburn Ceftriaxone Sodium (Ceftriaxone Sodium 1 Gm Vial) 1 gm IVPUSH Q24H [facility] Last Admin: 11/04/24 00:15 Dose: 1 gm Documented By: KULDEEP Dextrose (Dextrose 50 % 25 Gm/50 Ml Syringe) 25 gm IVPUSH Q15M PRN; Protocol PRN Reason: per Hypoglycemia Standing Ord. Glucose (Glucose Gel 15 Gm Gel..Gram.) 15 gm PO Q15M PRN; Protocol PRN Reason: per Hypoglycemia Standing Ord. Insulin Human Lispro (Insulin Lispro 100 Unit/Ml 3 Ml Vial) 0 unit SUBCUT QIDACHS [facility]; Protocol Last Admin: 11/04/24 07:27 Dose: 2 unit Documented By: NANCY Magnesium Hydroxide (Milk Of Magnesia 30 Ml Oral.Susp) 30 ml PO DAILY PRN PRN Reason: Constipation Melatonin (Melatonin 3 Mg Tablet) 6 mg PO BEDTIME PRN PRN Reason: Insomnia Sodium Chloride (0.9 % Sodium Chloride Flush 3 Ml Syringe) 3 ml IVFLUSH [facility] Last Admin: 11/04/24 07:29 Dose: 3 ml Documented By: NANCY Labs 11/04/24 04:55 11/04/24 04:55 Labs: Laboratory Results - last 24 hr 11/03/24 11/03/24 11/04/24 18:39 22:15 04:55 MCV 80.8 81.5 MCH 27.1 26.9 L MCHC 33.6 33.0 RDW 14.0 14.1 Plt Count 205 194 MPV 11.7 11.7 Immature Gran % (Auto) 0.2 0.1 Neut % (Auto) 55.7 54.4 Lymph % (Auto) 33.3 31.0 [place] % (Auto) 8.4 11.4 H Eos % (Auto) 2.1 2.6 Baso % (Auto) 0.3 0.5 Lymph # (Auto) 3.0 2.3 [place] # (Auto) 0.8 0.9 Eos # (Auto) 0.2 0.2 Baso # (Auto) 0.0 0.0 Abs Immat Gran (auto) 0.02 0.01 Absolute Neuts (auto) 5.0 4.1 Absolute Nucleated RBC 0.000 0.000 Nucleated RBC % (auto) 0.0 0.0 Anion Gap 13 12 Estim Creat Clear Calc 47.8 49.5 Estimated GFR > 60 > 60 POC Glucose Random Glucose 219 H 195 H Calcium 9.3 9.5 Magnesium 1.6 1.6 Total Bilirubin 0.2 AST 30 ALT 24 Alkaline Phosphatase 85 Total Creatine Kinase 356 H 264 H Total Protein 7.2 Albumin 4.1 25-OH Vitamin D Total 21.8 L Urine Color Yellow Urine Appearance Clear Urine pH 6.5 Ur Specific [place] <= 1.005 Urine Protein Negative Urine Glucose (UA) Negative Urine Ketones Negative Urine Blood Negative Urine Nitrite Negative Ur Leukocyte Esterase Large (3+) H Urine RBC 0-2 Urine WBC 11-20 H Ur Squamous Epith Cells 0-2 Urine Bacteria None Seen Hyaline Casts 0-2 11/04/24 11/04/24 07:15 12:44 MCV MCH MCHC RDW Plt Count MPV Immature Gran % (Auto) Neut % (Auto) Lymph % (Auto) [place] % (Auto) Eos % (Auto) Baso % (Auto) Lymph # (Auto) [place] # (Auto) Eos # (Auto) Baso # (Auto) Abs Immat Gran (auto) Absolute Neuts (auto) Absolute Nucleated RBC Nucleated RBC % (auto) Anion Gap Estim Creat Clear Calc Estimated GFR POC Glucose 155 H 118 H Random Glucose Calcium Magnesium Total Bilirubin AST ALT Alkaline Phosphatase Total Creatine Kinase Total Protein Albumin 25-OH Vitamin D Total Urine Color Urine Appearance Urine pH Ur Specific [place] Urine Protein Urine Glucose (UA) Urine Ketones Urine Blood Urine Nitrite Ur Leukocyte Esterase Urine RBC Urine WBC Ur Squamous Epith Cells Urine Bacteria Hyaline Casts Assessment and Plan (1) Fall: Status: Acute Assessment and Plan: d2, 69yo F with DM2, HLD, schizophrenia, dementia, depression/anxiety, HTN who sustained fall from leg weakness, no LOC fall - orthostatics, TTE, MRI L-spine, hold Lasix, Psych consult re polypharmacy UTI - ceftriaxone 9/6-, ceftriaxone elev CPK - hold statin, CPK below rhabdo level DM2 - basal-bolus insulin mood disorder/schizophrenia - aripiprazole, buspirone, lamotrigine, lorazepam, olanzapine, prn quetiapine, sertraline; Psych consult re polypharmacy as unclear why pt is on 3 antipsychotics; hold quetiapine GERD - PPI HTN - lisinopril, metoprolol tartrate HLD - hold statin as above VTE ppx - enoxaparin dispo - PT eval In my clinical judgment, the patient requires continued inpatient hospitalization for the following reasons: workup pending Total time managing care of this patient today: 35 minutes. Quality Stroke Does the patient have a stroke diagnosis?: No VTE Prior VTE?: No VTE Risk Level:: Medical - moderate - high VTE Device Contraindication: N/A - Device Ordered VTE Drug Contraindication: N/A - Med Ordered
--- NOTE | 2024-11-04 14:08 | PHA.MEDREC ---
Pharmacy Consult ? Medication Reconciliation Pharmacy has completed the medication reconciliation. Utilized list from visit on 10/28/24 and list from [facility] to confirm meds.
--- NOTE | 2024-11-04 14:47 | PC.NURSE ---
Patient sleeping at this time. Respirations even/unlabored. Vitals stable. Care ongoing by this RN. Awaiting bed assignment.
--- NOTE | 2024-11-04 16:27 | PC.NURSE ---
Away for MRI
[2024-11-04 18:00] LABS: Iron 40 mcg/dL (30-160); Percent Iron Saturation 17 % (15-50); Total Iron Binding Capacity 233 mcg/dL (228-428); Unsaturated Iron Binding 193 ug/dL
[2024-11-04 18:13] LABS: Ferritin 31 ng/mL (10-250)
[2024-11-04 18:17] LABS: Glucose, Whole Blood 167 mg/dL (60-115)
--- NOTE | 2024-11-04 18:40 | MHC.EDTECH ---
Empty patients Esteban cathier urine out put was 1700. Nurse aware
[2024-11-04 21:17] LABS: Glucose, Whole Blood 221 mg/dL (60-115)
[2024-11-05] VITALS (7 sets, daily range): BP systolic 113–163; BP diastolic 57–74; PULSE 59–81; RESP 14–16; TEMP 36–36.9; O2SAT 92–98
--- NOTE | 2024-11-05 07:00 | CA_ITS ---
Transthoracic Echocardiogram Patient (Last, First, Middle): Celeste Cunha, Gender: F Date of : 1955 Age: 69 Procedure Date: 11/05/2024 Procedure Type: Transthoracic Echocardiogram Location: [facility] [place] Height: 157.48 cm Weight: 61.24 kg BSA: 1.62 m2 Heart Rate: bpm BP: 139 / 60 mmHg Rn Relief Charge: Referring MD: Brenda Menjivar MD Felt Dyeing Machine Tender: Leland Blackman MD Symptoms: ? Dizziness, fall history of fascicular block Study Quality: Adequate ECG Rhythm: Sinus Conclusions: - 1. Normal LV ejection fraction of 65-70% with mild LVH with impaired relaxation filling pattern 2. Calcific aortic and mitral valve changes noted with normal cardiac valvular Dopplers 3. Normal RV systolic pressure 4. No significant pericardial effusion Findings Left Ventricle Normal left ventricular size and systolic function. There is mildly increased left ventricular wall thickness. The visually estimated ejection fraction is between 65-70%. Spectral Doppler is indicative of an impaired relaxation filling pattern. E/E prime ratio is between 8 and 15 consistent with indeterminate filling pressures. Right Ventricle Normal right ventricular cavity size and systolic function. Atria Both atria are normal in size. There is no evidence of interatrial shunt. Aortic Valve There is mild calcification of the aortic valve. There is no aortic valve stenosis. There is no aortic valve regurgitation. Mitral Valve There is mild anterior and moderate posterior mitral leaflet thickening. The posterior mitral leaflet has restricted mobility. There is trace mitral valve regurgitation. There is no mitral valve stenosis. Pulmonic Valve The pulmonic valve was not well visualized. Tricuspid Valve Likely normal tricuspid valve structure and function. There is mild tricuspid valve regurgitation. The right ventricular systolic pressure is normal. The right ventricular systolic pressure is 30 mmHg. Normal right atrial pressure. There is no evidence of pulmonary hypertension. Great Vessels All visible segments of the aorta are normal in size. The pulmonary artery was not well visualized. There is no dilatation of the ascending aorta measuring 2.70 cm. Venous The inferior vena cava is normal in size and collapses greater than 50% with inspiration. Pericardium/Pleural There is no evidence of pericardial effusion. Prior Study Comparison No significant change compared to prior study dated: 05/24/2018. Measurements 2D Linear Measurements IVSd: 1.22 0.6-0.9/0.6-1.0 cm LVIDd: 3.32 3.9-5.3/4.2-5.9 cm LVIDd Index: 2.05 2.4-3.2/2.2-3.1 cm/m2 LVIDs: 1.92 2.0-3.6 cm LVPWd: 1.23 0.7-1.1 cm Ao Root: 2.90 2.1-3.5 cm LA Diam: 3.50 2.7-3.8/3.0-4.0 cm LAIDs Index: 2.16 1.5-2.3 cm/m2 LV Mass: 161.73 67-162/88-224 g LV Mass Index: 99.83 43-95/49-115 g/m2 LVOT Diam: 2.00 3.0+(-)1.3 cm 2D Systolic Function EF 4C: 72.40 >55% EF 2C: 69.00 >55% EF BiP: 70.30 >55% Mitral Valve MV VTI: 0.39 MV Pk Hugo: 1.22 MV Mn Hugo: 0.85 MV Pk Grad: 6.00 MV Mn Grad: 3.00 MV Pk E: 0.91 MV PK A: 1.07 MV Decel Time: 266.00 E/A: 0.80 E'Lateral: 8.81 E'Medial: 4.46 E/E' Med: 20.30 E/E' Lat: 10.30 PHT: 78.00 MVA PHT: 2.82 MVA Continuity: 2.68 Decel [place]: 3.41 Aortic Valve AoV Pk Hugo: 1.60 AoV Mn Hugo: 1.03 AoV VTI: 0.38 AoV Pk Grad: 10.00 Aov Mn Grad: 5.00 DOLLY Cont.VTI: 2.71 LVOT LVOT Pk Hugo: 1.23 LVOT Mn Hugo: 0.77 LVOT VTI: 0.33 LVOT Pk Grad: 6.00 LVOT Mn Grad: 3.00 LVOT Diam: 2.00 LVOT Area: 3.14 Diastolic Function MV Pk E: 0.91 MV Pk A: 1.07 E/A: 0.80 E'Medial: 4.46 E/E' Med: 20.30 E' Laterial: 8.81 E/E' Lat: 10.30 Right Ventricle TAPSE (mm): 20.00 TVS' Hugo: 9.00 Tricuspid Valve TR Pk Hugo: 2.60 TR Pk Grad: 27.00 RA Press: 3.00 RVSP: 30.00 Great Vessels Aorta Ao Root-2D: 2.90 2.0-3.7 cm Ao Asc: 2.70 2.1-3.4 cm Pulmonary Valve PV Pk Hugo: 1.19 Peak PV Grad: 6.00 Updated in Other Vendor System with Status of Final Leland Blackman MD electronically signed on 11/05/2024 12:20:19 PM with status of Final
[2024-11-05 07:17] LABS: Glucose, Whole Blood 141 mg/dL (60-115)
--- NOTE | 2024-11-05 08:32 | PM.UROCN ---
History of Present Illness Consult details Consult date: 11/05/24 Narrative: CC: [place] nephrosis, urinary retention 69-year-old female Insulin-dependent diabetic with schizoaffective disorder and dementia Admitted to hospital for fall whilst ambulating Found to have urinary retention with bilateral hydro uretero nephrosis Renal function normal creatinine 0.86 Urine culture contaminated mixed growth Recommend voiding trial after 48 hours Start bethanechol Review of Systems Constitutional: Constitutional: Reports as per HPI and Reports no additional constitutional complaints Cardiovascular: Cardiovascular: Reports as per HPI and Reports no additional cardiovascular complaints Respiratory: Respiratory: Reports as per HPI and Reports no additional respiratory complaints Gastrointestinal: Gastrointestinal: Reports as per HPI and Reports no additional gastrointestinal complaints Genitourinary: Genitourinary: Reports as per HPI Musculoskeletal: Musculoskeletal: Reports no additional musculoskeletal complaints and Reports as per HPI Neurologic: Reports system reviewed and no additional complaints, except as documented and Reports as per HPI PMFSH Past Medical History Medical History Breast calcification, left Disc degeneration, lumbar Dermatophytosis Dermatitis Joint pain Depression with anxiety Schizoaffective disorder PTSD (post-traumatic stress disorder) Dementia Smoking CAD (coronary artery disease) Type 2 diabetes mellitus with chronic kidney disease Chronic kidney disease, stage 3 unspecified Type 2 diabetes mellitus with diabetic polyneuropathy Essential hypertension Dyslipidemia Diabetes mellitus with hyperglycemia Family History Family History Father No problems noted. Mother No problems noted. Surgical History Surgical History Hx of colonoscopy Hx of cataract surgery Hx of tubal ligation Hx of section Social History Social History Household Members: None Household Members Other:: has CHD Services Housing: Apartment Do you presently have visiting nurse or other home services: Yes Unable to assess alcohol history related to: Unknown Alcohol intake: former Patient Tobacco Use Status: Current everyday Tobacco user Tobacco use type: Smokeless Tobacco Cigarette Packs Per Day: 1 Cigarettes Per Day: 4 e-Cigarette/Vaping Use: Never Used Second Hand Smoke Exposure: Yes Advance Directives Date on File: 09/30/20 service: No Sexual orientation: Straight/Heterosexual Meds Allergies Allergy/AdvReac Type Severity Reaction Status Date / Time duloxetine (Cymbalta) Allergy Unknown Unknown Verified 11/03/24 18:19 hydroxyzine Allergy Unknown unknown Verified 11/03/24 18:19 risperidone Allergy Unknown Unknown Verified 11/03/24 18:19 trazodone Allergy Unknown Unknown Verified 11/03/24 18:19 quetiapine (From SEROQUEL) AdvReac Severe Acute Verified 11/03/24 18:19 Dystonic reaction Active Medications: Current Medications Acetaminophen (Acetaminophen 325 Mg Tablet) 975 mg PO Q6H PRN PRN Reason: Pain, Mild 1-3,fever,headache Last Admin: 11/04/24 22:39 Dose: 975 mg Aripiprazole (Aripiprazole 20 Mg Tablet) 20 mg PO DAILY [facility] Aspirin (Aspirin Enteric Coated 81 Mg Tablet.Dr) 81 mg PO DAILY [facility] Buspirone HCl (Buspirone Hcl 10 Mg Tablet) 10 mg PO TID [facility] Last Admin: 11/04/24 22:08 Dose: 10 mg Calcium Carbonate (Calcium Carbonate 750 Mg Tab.Chew) 750 mg PO Q4H PRN PRN Reason: Heartburn Ceftriaxone Sodium (Ceftriaxone Sodium 1 Gm Vial) 1 gm IVPUSH Q24H [facility] Last Admin: 11/04/24 23:50 Dose: 1 gm Dextrose (Dextrose 50 % 25 Gm/50 Ml Syringe) 25 gm IVPUSH Q15M PRN; Protocol PRN Reason: per Hypoglycemia Standing Ord. Docusate Sodium (Docusate Sodium 100 Mg Capsule) 200 mg PO BEDTIME [facility] Last Admin: 11/04/24 22:08 Dose: 200 mg Gabapentin (Gabapentin 100 Mg Capsule) 200 mg PO DAILY [facility] Glucose (Glucose Gel 15 Gm Gel..Gram.) 15 gm PO Q15M PRN; Protocol PRN Reason: per Hypoglycemia Standing Ord. Hydrocortisone (Hydrocortisone 1 % Ointment 28.35 Gm Tube) 1 appl TOPICAL BID [facility]; Protocol Last Admin: 11/04/24 22:10 Dose: Not Given Insulin Human Lispro (Insulin Lispro 100 Unit/Ml 3 Ml Vial) 0 unit SUBCUT QIDACHS [facility]; Protocol Last Admin: 11/05/24 07:57 Dose: Not Given Lamotrigine (Lamotrigine 100 Mg Tablet) 200 mg PO DAILY [facility] Lisinopril (Lisinopril 10 Mg Tablet) 10 mg PO DAILY [facility]; Protocol Lorazepam (Lorazepam 0.5 Mg Tablet) 0.5 mg PO BEDTIME [facility] Last Admin: 11/04/24 22:07 Dose: 0.5 mg Magnesium Hydroxide (Milk Of Magnesia 30 Ml Oral.Susp) 30 ml PO DAILY PRN PRN Reason: Constipation Melatonin (Melatonin 3 Mg Tablet) 6 mg PO BEDTIME PRN PRN Reason: Insomnia Metoprolol Tartrate (Metoprolol Tartrate 25 Mg Tablet) 25 mg PO BID [facility]; Protocol Last Admin: 11/04/24 22:08 Dose: 25 mg Olanzapine (Olanzapine 5 Mg Tablet) 5 mg PO BEDTIME [facility] Last Admin: 11/04/24 22:08 Dose: 5 mg Omeprazole (Omeprazole 20 Mg Capsule.Dr) 20 mg PO BID [facility] Last Admin: 11/04/24 22:08 Dose: 20 mg Polyethylene Glycol (Polyethylene Glycol 3350 17 Gm Powd.Pack) 17 gm PO DAILY [facility] Sertraline HCl (Sertraline Hcl 50 Mg Tablet) 150 mg PO DAILY [facility] Sodium Chloride (0.9 % Sodium Chloride Flush 3 Ml Syringe) 3 ml IVFLUSH QSHIFT [facility] Last Admin: 11/04/24 22:10 Dose: 3 ml Home Medications ?Medication ?Instructions ?Recorded ?Confirmed ?Last Taken ?Type atorvastatin 80 mg tablet 80 mg PO DAILY 01/19/24 11/04/24 Unknown History buspirone 10 mg tablet 10 mg PO TID 01/19/24 11/04/24 Unknown History furosemide 20 mg tablet 20 mg PO DAILY 01/19/24 11/04/24 Unknown History lisinopril 10 mg tablet 10 mg PO DAILY 01/19/24 11/04/24 Unknown History metformin 500 mg tablet 500 mg PO BID 01/19/24 11/04/24 Unknown History metoprolol tartrate 25 mg tablet 25 mg PO BID 01/19/24 11/04/24 Unknown History acetaminophen 650 mg 1,300 mg PO BID PRN mild pain 01/20/24 11/04/24 Unknown History tablet,extended release aripiprazole 20 mg tablet 20 mg PO DAILY 01/20/24 11/04/24 Unknown History gabapentin 100 mg capsule 200 mg PO DAILY 01/20/24 11/04/24 Unknown History insulin lispro 100 unit/mL 1 sliding scale dose subcut 01/20/24 11/04/24 Unknown History subcutaneous pen (Humalog KwikPen USEASDIRECTD (U-100) Insulin) omeprazole 20 mg capsule,delayed 20 mg PO BID 01/20/24 11/04/24 Unknown History release sertraline 100 mg tablet 150 mg PO DAILY 01/20/24 11/04/24 Unknown History aspirin 81 mg tablet,delayed 81 mg PO DAILY 10/29/24 11/04/24 Unknown History release lorazepam 0.5 mg tablet 0.5 mg PO QPM 10/29/24 11/04/24 Unknown History olanzapine 5 mg tablet 5 mg PO BEDTIME 10/29/24 11/04/24 Unknown History quetiapine 50 mg tablet 50 mg PO BEDTIME PRN Agitation 10/29/24 11/04/24 Unknown History diclofenac sodium 1 % topical gel 1 g topical BID PRN Pain 11/04/24 11/04/24 Unknown History dulaglutide 4.5 mg/0.5 mL 4.5 mg subcut [place] 11/04/24 11/04/24 Unknown History subcutaneous pen injector (Trulicity) insulin glargine 100 unit/mL (3 26 unit subcut BEDTIME 11/04/24 11/04/24 Unknown History mL) subcutaneous pen (Lantus Solostar U-100 Insulin) lamotrigine 200 mg tablet 200 mg PO DAILY 11/04/24 11/04/24 Unknown History polyethylene glycol 3350 17 17 g PO DAILY 11/04/24 11/04/24 Unknown History gram/dose oral powder Physical Exam Vital Signs: Vital Signs: Last Vital Signs Temp 97.1 F 11/05/24 07:25 Pulse 70 11/05/24 07:25 Resp 16 11/05/24 07:25 BP 163/74 H 11/05/24 07:25 Pulse Ox 98 11/05/24 07:25 O2 Del Method Room Air 11/05/24 07:25 BMI result Body Mass Index 24.8 Const: General: cooperative, healthy appearing, comfortable and no acute distress Orientation/consciousness: patient oriented x3 HEENT: Face and sinus: Yes normal facial exam Mouth: moist mucous membranes Neck: Neck: Yes normal visual inspection, Yes full ROM and Yes trachea midline Chest: Chest palpation & inspection: normal inspection of the chest Resp: Effort & Inspection: normal respiratory effort, able to speak in complete sentences and no respiratory distress GI: Inspection: Yes normal to inspection Back/Spine/Pelvis: Cervical Spine: normal cervical lordosis Thoracic/Lumbar Spine: thoracic and lumbar spine normal to inspection Skin: General skin exam: no rashes or lesions noted Neuro: General: patient oriented x3, tone normal and moves all extremities Extrem: General: Yes normal to inspection and Yes capillary refill normal Results Labs 11/04/24 04:55 11/04/24 04:55 Labs: Abnormal lab results 11/04/24 11/04/24 11/04/24 Range/Units 12:44 18:14 21:03 POC Glucose 118 H 167 H 221 H (60-115) mg/dL 11/05/24 Range/Units 07:09 POC Glucose 141 H (60-115) mg/dL Urine 11/03/24 Range/Units 22:15 Urine Color Yellow Urine Appearance Clear Urine pH 6.5 (5.0-9.0) Ur Specific [place] <= 1.005 (1.005-1.025) Urine Protein Negative (Neg-Trace) mg/dL Urine Glucose (UA) Negative (Negative) mg/dL All other labs normal. Assessment and Plan (1) Urinary retention with incomplete bladder emptying: Status: Acute Plan Voiding trial in 48 hours Bethanechol Procedures Date of Service Date of Service: 11/05/24
[2024-11-05] MEDS: Aspirin Enteric Coated 81 MG TABLET.DR PO (09:05)
[2024-11-05] MEDS: 0.9 % Sodium Chloride Flush 3 ML SYRINGE IVFLUSH ×3 (09:06→21:14)
[2024-11-05 11:13] LABS: Glucose, Whole Blood 275 mg/dL (60-115)
[2024-11-05] MEDS: Hydrocortisone 1 % Ointment 28.35 GM TUBE 1 APPL TOPICAL ×2 (12:07→21:14)
--- NOTE | 2024-11-05 12:40 | MHC.CM.PN ---
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
--- NOTE | 2024-11-05 15:37 | P.PNIM_ITS ---
Subjective Subjective Date of Service: 11/05/24 Interval History: This history was taken in Occitan from the patient. No complaints Catheterized for 1400 mL yesterday Review of Systems Review of Systems: Yes all other systems are reviewed and are negative Physical Exam 2 Vital Signs: Vital Signs: Last Vital Signs Temp 98.4 F 11/05/24 11:56 Pulse 81 11/05/24 11:56 Resp 14 11/05/24 11:56 BP 159/72 H 11/05/24 11:56 Pulse Ox 94 11/05/24 11:56 O2 Del Method Room Air 11/05/24 11:56 BMI result Body Mass Index 24.8 Gen: in no acute distress HEENT: sclera anicteric, moist mucus membranes Neck: supple Lungs: clear to auscultation bilaterally Heart: regular rate and rhythm, no murmurs Abd: soft, non-tender, non-distended : Esteban draining clear urine Ext: no edema Skin: warm/well-perfused Neuro: alert and oriented x3, no focal findings Psych: appropriate affect Objective Data Active Medications Acetaminophen (Acetaminophen 325 Mg Tablet) 975 mg PO Q6H PRN PRN Reason: Pain, Mild 1-3,fever,headache Last Admin: 11/05/24 09:16 Dose: 975 mg Documented By: CLINTON Aripiprazole (Aripiprazole 20 Mg Tablet) 20 mg PO DAILY [facility] Last Admin: 11/05/24 09:05 Dose: 20 mg Documented By: CLINTON Aspirin (Aspirin Enteric Coated 81 Mg Tablet.) 81 mg PO DAILY [facility] Last Admin: 11/05/24 09:05 Dose: 81 mg Documented By: CLINTON Bethanechol Chloride (Bethanechol Chloride 25 Mg Tablet) 50 mg PO BID [facility] Buspirone HCl (Buspirone Hcl 10 Mg Tablet) 10 mg PO TID [facility] Last Admin: 11/05/24 14:23 Dose: 10 mg Documented By: CLINTON Calcium Carbonate (Calcium Carbonate 750 Mg Tab.Chew) 750 mg PO Q4H PRN PRN Reason: Heartburn Ceftriaxone Sodium (Ceftriaxone Sodium 1 Gm Vial) 1 gm IVPUSH Q24H [facility] Last Admin: 11/04/24 23:50 Dose: 1 gm Documented By: MYA Dextrose (Dextrose 50 % 25 Gm/50 Ml Syringe) 25 gm IVPUSH Q15M PRN; Protocol PRN Reason: per Hypoglycemia Standing Ord. Docusate Sodium (Docusate Sodium 100 Mg Capsule) 200 mg PO BEDTIME [facility] Last Admin: 11/04/24 22:08 Dose: 200 mg Documented By: MYA Gabapentin (Gabapentin 100 Mg Capsule) 200 mg PO DAILY [facility] Last Admin: 11/05/24 09:06 Dose: 200 mg Documented By: CLINTON Glucose (Glucose Gel 15 Gm Gel..Gram.) 15 gm PO Q15M PRN; Protocol PRN Reason: per Hypoglycemia Standing Ord. Hydrocortisone (Hydrocortisone 1 % Ointment 28.35 Gm Tube) 1 appl TOPICAL BID [facility]; Protocol Last Admin: 11/05/24 12:07 Dose: 1 appl Documented By: CLINTON Insulin Human Lispro (Insulin Lispro 100 Unit/Ml 3 Ml Vial) 0 unit SUBCUT QIDACHS [facility]; Protocol Last Admin: 11/05/24 12:07 Dose: 6 unit Documented By: CLINTON Lamotrigine (Lamotrigine 100 Mg Tablet) 200 mg PO DAILY [facility] Last Admin: 11/05/24 09:05 Dose: 200 mg Documented By: CLINTON Lisinopril (Lisinopril 10 Mg Tablet) 10 mg PO DAILY [facility]; Protocol Last Admin: 11/05/24 09:05 Dose: 10 mg Documented By: CLINTON Lorazepam (Lorazepam 0.5 Mg Tablet) 0.5 mg PO BEDTIME [facility] Last Admin: 11/04/24 22:07 Dose: 0.5 mg Documented By: MYA Magnesium Hydroxide (Milk Of Magnesia 30 Ml Oral.Susp) 30 ml PO DAILY PRN PRN Reason: Constipation Melatonin (Melatonin 3 Mg Tablet) 6 mg PO BEDTIME PRN PRN Reason: Insomnia Metoprolol Tartrate (Metoprolol Tartrate 25 Mg Tablet) 25 mg PO BID [facility]; Protocol Last Admin: 11/05/24 09:05 Dose: 25 mg Documented By: CLINTON Olanzapine (Olanzapine 5 Mg Tablet) 5 mg PO BEDTIME [facility] Last Admin: 11/04/24 22:08 Dose: 5 mg Documented By: MYA Omeprazole (Omeprazole 20 Mg Capsule.Dr) 20 mg PO BID [facility] Last Admin: 11/05/24 09:05 Dose: 20 mg Documented By: CLINTON Polyethylene Glycol (Polyethylene Glycol 3350 17 Gm Powd.Pack) 17 gm PO DAILY [facility] Last Admin: 11/05/24 09:17 Dose: 17 gm Documented By: CLINTON Sertraline HCl (Sertraline Hcl 50 Mg Tablet) 150 mg PO DAILY [facility] Last Admin: 11/05/24 09:05 Dose: 150 mg Documented By: CLINTON Sodium Chloride (0.9 % Sodium Chloride Flush 3 Ml Syringe) 3 ml IVFLUSH QSHIFT [facility] Last Admin: 11/05/24 09:06 Dose: 3 ml Documented By: CLINTON Labs 11/04/24 04:55 11/04/24 04:55 Labs: Laboratory Results - last 24 hr 11/04/24 11/04/24 11/04/24 04:55 18:14 21:03 POC Glucose 167 H 221 H Iron 40 TIBC 233 % Saturation 17 Unsat Iron Binding 193 Ferritin 31 11/05/24 11/05/24 07:09 11:01 POC Glucose 141 H 275 H Iron TIBC % Saturation Unsat Iron Binding Ferritin Microbiology Microbiology Results: Microbiology 11/03/24 Unknown Urine Culture - Final Urine clean catch - Clean Catch Midstream Assessment and Plan (1) Fall: Status: Acute Assessment and Plan: d3, 69yo F with DM2, HLD, schizophrenia, dementia, depression/anxiety, HTN who sustained fall from leg weakness, no LOC fall - orthostatics negative - TTE 11/05 - 1. Normal LV ejection fraction of 65-70% with mild LVH with impaired relaxation filling pattern 2. Calcific aortic and mitral valve changes noted with normal cardiac valvular Dopplers 3. Normal RV systolic pressure 4. No significant pericardial effusion - MRI L-spine: 1. No evidence of acute injury to the lumbar spine. 2. Facet joint synovitis present at L4-5 bilaterally, left more so than right. 3. Grade 1 anterolisthesis of L4 on L5, degenerative. 4. Mild spinal canal stenosis at L2-3 and L3-4. 5. Moderate to advanced multilevel spondylosis with multilevel neural foraminal narrowing most pronounced at L5-S1. 6. Severe bilateral hydronephrosis and hydroureter with distention of the urinary bladder partially visualized. - hold furosemide - Psych consult for polypharmacy pending severe hydronephrosis urinary retention - Uro consulted; bethanechol; voiding trial after 48h UTI - ceftriaxone 11/03-, follow UCx elev CPK - hold statin, CPK below rhabdo level DM2 - basal-bolus insulin mood disorder/schizophrenia - aripiprazole, buspirone, lamotrigine, lorazepam, olanzapine, prn quetiapine, sertraline; Psych consult re polypharmacy as unclear why pt is on 3 antipsychotics; hold quetiapine GERD - PPI HTN - lisinopril, metoprolol tartrate HLD - hold statin as above VTE ppx - enoxaparin dispo - PT eval: STR In my clinical judgment, the patient requires continued inpatient hospitalization for the following reasons: urinary retention; hydronephrosis Total time managing care of this patient today: 35 minutes. Quality Stroke Does the patient have a stroke diagnosis?: No VTE Prior VTE?: No VTE Risk Level:: Medical - moderate - high VTE Device Contraindication: N/A - Device Ordered VTE Drug Contraindication: N/A - Med Ordered
[2024-11-05 16:26] LABS: Glucose, Whole Blood 162 mg/dL (60-115)
[2024-11-05 20:49] LABS: Glucose, Whole Blood 264 mg/dL (60-115)
[2024-11-06] VITALS (7 sets, daily range): BP systolic 118–152; BP diastolic 56–67; PULSE 60–69; RESP 16–18; TEMP 36.2–36.6; O2SAT 93–97
[2024-11-06 06:52] LABS: Hematocrit 39.0 % (37.0-47.0); Hemoglobin 12.4 g/dl (12.0-16.0); Mean Corpuscular HGB Conc 31.8 g/dl (31.0-35.0); Mean Corpuscular Hemoglobin 26.7 pg (27.0-33.0); Mean Corpuscular Volume 84.1 fL (80.0-98.0); NRBC Abs Auto 0.000 X10*3/uL (0.0-0.012); NRBC Pct Auto 0.0 /100WBC (0.0-0.2); Platelet Count 226 X10*3/uL (160-400); Red Blood Count 4.64 X10*6/uL (4.20-5.50); White Blood Count 10.7 X10*3/uL (4.8-10.8)
[2024-11-06 07:05] LABS: Anion Gap 13 (12-20); Blood Urea Nitrogen 11 mg/dL (9-16); Calcium 9.6 mg/dL (8.4-10.2); Carbon Dioxide 29 mmol/L (22-29); Chloride 102 mmol/L (96-108); Creatinine Clr Calc Pharmacy 65.4; Estimated Glomerular Filt Rate > 60; Potassium 4.5 mmol/L (3.3-5.1); Sodium 139 mmol/L (135-145)
[2024-11-06 07:19] LABS: Glucose, Whole Blood 166 mg/dL (60-115)
[2024-11-06] MEDS: Aspirin Enteric Coated 81 MG TABLET.DR PO (08:23)
[2024-11-06] MEDS: 0.9 % Sodium Chloride Flush 3 ML SYRINGE IVFLUSH ×3 (08:24→21:49)
[2024-11-06] MEDS: Hydrocortisone 1 % Ointment 28.35 GM TUBE 1 APPL TOPICAL ×2 (08:29→21:57)
--- NOTE | 2024-11-06 10:26 | HO.PM.IMPN ---
Subjective Subjective Date of Service: 11/06/24 Interval History: This history was taken in Mongolian from the patient. Feels well; no dizziness; no pain. Esteban draining well. No events on telemetry. Review of Systems Review of Systems: Yes all other systems are reviewed and are negative Physical Exam Vital Signs: Vital Signs: Last Vital Signs Temp 97.1 F 11/06/24 07:06 Pulse 69 11/06/24 07:06 Resp 17 11/06/24 07:06 BP 143/60 H 11/06/24 07:06 Pulse Ox 96 11/06/24 07:06 O2 Del Method Room Air 11/06/24 07:06 O2 Flow Rate 92 11/05/24 15:56 BMI result Body Mass Index 24.8 Gen: in no acute distress HEENT: sclera anicteric, moist mucus membranes Neck: supple Lungs: clear to auscultation bilaterally Heart: regular rate and rhythm, no murmurs Abd: soft, non-tender, non-distended : Esteban draining clear urine Ext: no edema Skin: warm/well-perfused Neuro: alert and oriented x3, no focal findings Psych: appropriate affect Objective Data Active Medications Acetaminophen (Acetaminophen 325 Mg Tablet) 975 mg PO Q6H PRN PRN Reason: Pain, Mild 1-3,fever,headache Last Admin: 11/05/24 09:16 Dose: 975 mg Documented By: CLINTON Aripiprazole (Aripiprazole 20 Mg Tablet) 20 mg PO DAILY [facility] Last Admin: 11/06/24 08:23 Dose: 20 mg Documented By: JOHN PAUL Aspirin (Aspirin Enteric Coated 81 Mg Tablet.) 81 mg PO DAILY [facility] Last Admin: 11/06/24 08:23 Dose: 81 mg Documented By: JOHN PAUL Bethanechol Chloride (Bethanechol Chloride 25 Mg Tablet) 50 mg PO BID [facility] Last Admin: 11/06/24 08:23 Dose: 50 mg Documented By: JOHN PAUL Buspirone HCl (Buspirone Hcl 10 Mg Tablet) 10 mg PO TID [facility] Last Admin: 11/06/24 08:23 Dose: 10 mg Documented By: JOHN PAUL Calcium Carbonate (Calcium Carbonate 750 Mg Tab.Chew) 750 mg PO Q4H PRN PRN Reason: Heartburn Ceftriaxone Sodium (Ceftriaxone Sodium 1 Gm Vial) 1 gm IVPUSH Q24H [facility] Last Admin: 11/05/24 23:48 Dose: 1 gm Documented By: MONICA Dextrose (Dextrose 50 % 25 Gm/50 Ml Syringe) 25 gm IVPUSH Q15M PRN; Protocol PRN Reason: per Hypoglycemia Standing Ord. Docusate Sodium (Docusate Sodium 100 Mg Capsule) 200 mg PO BEDTIME [facility] Last Admin: 11/05/24 21:13 Dose: 200 mg Documented By: MONICA Gabapentin (Gabapentin 100 Mg Capsule) 200 mg PO DAILY [facility] Last Admin: 11/06/24 08:23 Dose: 200 mg Documented By: JOHN PAUL Glucose (Glucose Gel 15 Gm Gel..Gram.) 15 gm PO Q15M PRN; Protocol PRN Reason: per Hypoglycemia Standing Ord. Hydrocortisone (Hydrocortisone 1 % Ointment 28.35 Gm Tube) 1 appl TOPICAL BID [facility]; Protocol Last Admin: 11/06/24 08:29 Dose: 1 appl Documented By: JOHN PAUL Insulin Human Lispro (Insulin Lispro 100 Unit/Ml 3 Ml Vial) 0 unit SUBCUT QIDACHS [facility]; Protocol Last Admin: 11/06/24 08:24 Dose: 2 unit Documented By: JOHN PAUL Lamotrigine (Lamotrigine 100 Mg Tablet) 200 mg PO DAILY [facility] Last Admin: 11/06/24 08:23 Dose: 200 mg Documented By: JOHN PAUL Lisinopril (Lisinopril 10 Mg Tablet) 10 mg PO DAILY [facility]; Protocol Last Admin: 11/06/24 08:23 Dose: 10 mg Documented By: JOHN PAUL Lorazepam (Lorazepam 0.5 Mg Tablet) 0.5 mg PO BEDTIME [facility] Last Admin: 11/05/24 21:12 Dose: 0.5 mg Documented By: MONICA Magnesium Hydroxide (Milk Of Magnesia 30 Ml Oral.Susp) 30 ml PO DAILY PRN PRN Reason: Constipation Melatonin (Melatonin 3 Mg Tablet) 6 mg PO BEDTIME PRN PRN Reason: Insomnia Metoprolol Tartrate (Metoprolol Tartrate 25 Mg Tablet) 25 mg PO BID [facility]; Protocol Last Admin: 11/06/24 08:23 Dose: 25 mg Documented By: JOHN PAUL Olanzapine (Olanzapine 5 Mg Tablet) 5 mg PO BEDTIME [facility] Last Admin: 11/05/24 21:13 Dose: 5 mg Documented By: MONICA Omeprazole (Omeprazole 20 Mg Capsule.) 20 mg PO BID [facility] Last Admin: 11/06/24 08:23 Dose: 20 mg Documented By: JOHN PAUL Polyethylene Glycol (Polyethylene Glycol 3350 17 Gm Powd.Pack) 17 gm PO DAILY [facility] Last Admin: 11/06/24 08:25 Dose: 17 gm Documented By: JOHN PAUL Sertraline HCl (Sertraline Hcl 50 Mg Tablet) 150 mg PO DAILY [facility] Last Admin: 11/06/24 08:22 Dose: 150 mg Documented By: JOHN PAUL Sodium Chloride (0.9 % Sodium Chloride Flush 3 Ml Syringe) 3 ml IVFLUSH QSHIFT [facility] Last Admin: 11/06/24 08:24 Dose: 3 ml Documented By: JOHN PAUL Labs 11/06/24 06:14 11/06/24 06:14 Labs: Laboratory Results - last 24 hr 11/05/24 11/05/24 11/05/24 11:01 16:16 20:46 MCV MCH MCHC RDW Plt Count MPV Absolute Nucleated RBC Nucleated RBC % (auto) Anion Gap Estim Creat Clear Calc Estimated GFR POC Glucose 275 H 162 H 264 H Random Glucose Calcium 11/06/24 11/06/24 06:14 07:16 MCV 84.1 MCH 26.7 L MCHC 31.8 RDW 14.0 Plt Count 226 MPV 11.9 Absolute Nucleated RBC 0.000 Nucleated RBC % (auto) 0.0 Anion Gap 13 Estim Creat Clear Calc 65.4 Estimated GFR > 60 POC Glucose 166 H Random Glucose 171 H Calcium 9.6 Microbiology Microbiology Results: Microbiology 11/03/24 Unknown Urine Culture - Final Urine clean catch - Clean Catch Midstream Assessment and Plan (1) Fall: Status: Acute Assessment and Plan: d4, 69yo F with DM2, HLD, schizophrenia, dementia, depression/anxiety, HTN who sustained fall from leg weakness, no LOC found to have bladder distension with severe hydronephrosis fall leg weakness - orthostatics negative - telemetry negative; d/c telemetry - TTE 11/05 - 1. Normal LV ejection fraction of 65-70% with mild LVH with impaired relaxation filling pattern 2. Calcific aortic and mitral valve changes noted with normal cardiac valvular Dopplers 3. Normal RV systolic pressure 4. No significant pericardial effusion - MRI L-spine: 1. No evidence of acute injury to the lumbar spine. 2. Facet joint synovitis present at L4-5 bilaterally, left more so than right. 3. Grade 1 anterolisthesis of L4 on L5, degenerative. 4. Mild spinal canal stenosis at L2-3 and L3-4. 5. Moderate to advanced multilevel spondylosis with multilevel neural foraminal narrowing most pronounced at L5-S1. 6. Severe bilateral hydronephrosis and hydroureter with distention of the urinary bladder partially visualized. - held furosemide - Psych consult for polypharmacy pending (on 3 antipsychotics as outpt) as this may increase fall risk severe hydronephrosis urinary retention - Urology consulted; bethanechol; remove Esteban tonight then voiding trial; renal US tomorrow UTI - ceftriaxone 11/03-, UCx contaminated, d/c on cefuroxime til 11/10 elev CPK - hold statin, CPK below rhabdo level DM2 - basal-bolus insulin mood disorder/schizophrenia - aripiprazole, buspirone, lamotrigine, lorazepam, olanzapine, prn quetiapine, sertraline; Psych consult re polypharmacy as unclear why pt is on 3 antipsychotics [hold prn quetiapine] GERD - PPI HTN - lisinopril, metoprolol tartrate HLD - hold statin as above VTE ppx - enoxaparin dispo - PT eval: STR recommended; pt declined; plan home with VNA In my clinical judgment, the patient requires continued inpatient hospitalization for the following reasons: urinary retention; hydronephrosis Total time managing care of this patient today: 35 minutes. Quality Stroke Does the patient have a stroke diagnosis?: No VTE Prior VTE?: No VTE Risk Level:: Medical - moderate - high VTE Device Contraindication: N/A - Device Ordered VTE Drug Contraindication: N/A - Med Ordered
[2024-11-06 11:36] LABS: Glucose, Whole Blood 245 mg/dL (60-115)
[2024-11-06 16:11] LABS: Glucose, Whole Blood 232 mg/dL (60-115)
[2024-11-06] MEDS: Milk of Magnesia 30 ML ORAL.SUSP PO (16:25)
[2024-11-06 20:37] LABS: Glucose, Whole Blood 291 mg/dL (60-115)
[2024-11-07] VITALS (8 sets, daily range): BP systolic 100–139; BP diastolic 52–84; PULSE 57–70; RESP 16–20; TEMP 36.4–36.7; O2SAT 95–100
[2024-11-07 08:08] LABS: Glucose, Whole Blood 192 mg/dL (60-115)
[2024-11-07] MEDS: Hydrocortisone 1 % Ointment 28.35 GM TUBE 1 APPL TOPICAL ×2 (09:38→21:58)
[2024-11-07] MEDS: 0.9 % Sodium Chloride Flush 3 ML SYRINGE IVFLUSH ×3 (09:39→21:58)
[2024-11-07 11:31] LABS: Glucose, Whole Blood 226 mg/dL (60-115)
--- NOTE | 2024-11-07 13:51 | HO.PM.IMPN ---
Subjective Subjective Date of Service: 11/07/24 Interval History: No acute issues overnight. Seen by physical therapy recommends rehab; patient continues to decline. Review of Systems Denies chest pain Denies shortness of breath Denies nausea vomiting diarrhea Denies fever chills Physical Exam Vital Signs: Vital Signs: Last Vital Signs Temp 98.0 F 11/07/24 11:38 Pulse 61 11/07/24 11:38 Resp 20 11/07/24 11:38 BP 104/61 11/07/24 11:38 Pulse Ox 100 11/07/24 11:38 O2 Del Method Room Air 11/07/24 11:38 O2 Flow Rate 92 11/05/24 15:56 BMI result Body Mass Index 24.8 Const: Other: Awake alert no acute distress Resp: Other: Clear to auscultation bilaterally no rales rhonchi or wheezes Cardio: Other: No S4; positive S1-S2; no S3 murmurs rubs or gallops GI: Other: Soft nontender nondistended normoactive bowel sounds Extrem: Other: No edema bilaterally Objective Data Active Medications Acetaminophen (Acetaminophen 325 Mg Tablet) 975 mg PO Q6H PRN PRN Reason: Pain, Mild 1-3,fever,headache Last Admin: 11/07/24 09:37 Dose: 975 mg Documented By: JOHN PAUL Aripiprazole (Aripiprazole 20 Mg Tablet) 20 mg PO DAILY [facility] Last Admin: 11/07/24 09:37 Dose: 20 mg Documented By: JOHN PAUL Aspirin (Aspirin Enteric Coated 81 Mg Tablet.) 81 mg PO DAILY [facility] On Hold: 11/06/24 14:35 Last Admin: 11/06/24 08:23 Dose: 81 mg Documented By: JOHN PAUL Bethanechol Chloride (Bethanechol Chloride 25 Mg Tablet) 50 mg PO BID [facility] Last Admin: 11/07/24 09:36 Dose: 50 mg Documented By: JOHN PAUL Buspirone HCl (Buspirone Hcl 10 Mg Tablet) 10 mg PO TID [facility] Last Admin: 11/07/24 09:37 Dose: 10 mg Documented By: JOHN PAUL Calcium Carbonate (Calcium Carbonate 750 Mg Tab.Chew) 750 mg PO Q4H PRN PRN Reason: Heartburn Ceftriaxone Sodium (Ceftriaxone Sodium 1 Gm Vial) 1 gm IVPUSH Q24H [facility] Last Admin: 11/06/24 23:47 Dose: 1 gm Documented By: MONICA Dextrose (Dextrose 50 % 25 Gm/50 Ml Syringe) 25 gm IVPUSH Q15M PRN; Protocol PRN Reason: per Hypoglycemia Standing Ord. Docusate Sodium (Docusate Sodium 100 Mg Capsule) 200 mg PO BEDTIME [facility] Last Admin: 11/06/24 21:47 Dose: 200 mg Documented By: MONICA Gabapentin (Gabapentin 100 Mg Capsule) 200 mg PO DAILY [facility] Last Admin: 11/07/24 09:36 Dose: 200 mg Documented By: JOHN PAUL Glucose (Glucose Gel 15 Gm Gel..Gram.) 15 gm PO Q15M PRN; Protocol PRN Reason: per Hypoglycemia Standing Ord. Hydrocortisone (Hydrocortisone 1 % Ointment 28.35 Gm Tube) 1 appl TOPICAL BID [facility]; Protocol Last Admin: 11/07/24 09:38 Dose: 1 appl Documented By: JOHN PAUL Insulin Human Lispro (Insulin Lispro 100 Unit/Ml 3 Ml Vial) 0 unit SUBCUT QIDACHS [facility]; Protocol Last Admin: 11/07/24 11:44 Dose: 4 unit Documented By: JOHN PAUL Lamotrigine (Lamotrigine 100 Mg Tablet) 200 mg PO DAILY [facility] Last Admin: 11/07/24 09:36 Dose: 200 mg Documented By: JOHN PAUL Lisinopril (Lisinopril 10 Mg Tablet) 10 mg PO DAILY [facility]; Protocol Last Admin: 11/07/24 09:36 Dose: 10 mg Documented By: JOHN PAUL Lorazepam (Lorazepam 0.5 Mg Tablet) 0.5 mg PO BEDTIME [facility] Last Admin: 11/06/24 21:48 Dose: 0.5 mg Documented By: MONICA Magnesium Hydroxide (Milk Of Magnesia 30 Ml Oral.Susp) 30 ml PO DAILY PRN PRN Reason: Constipation Last Admin: 11/06/24 16:25 Dose: 30 ml Documented By: JOHN PAUL Melatonin (Melatonin 3 Mg Tablet) 6 mg PO BEDTIME PRN PRN Reason: Insomnia Metoprolol Tartrate (Metoprolol Tartrate 25 Mg Tablet) 25 mg PO BID [facility]; Protocol Last Admin: 11/07/24 09:38 Dose: 25 mg Documented By: JOHN PAUL Olanzapine (Olanzapine 5 Mg Tablet) 5 mg PO BEDTIME [facility] Last Admin: 11/06/24 21:47 Dose: 5 mg Documented By: MONICA Omeprazole (Omeprazole 20 Mg Capsule.Dr) 20 mg PO BID [facility] Last Admin: 11/07/24 09:37 Dose: 20 mg Documented By: JOHN PAUL Polyethylene Glycol (Polyethylene Glycol 3350 17 Gm Powd.Pack) 17 gm PO DAILY [facility] Last Admin: 11/07/24 09:36 Dose: 17 gm Documented By: JOHN PAUL Sertraline HCl (Sertraline Hcl 50 Mg Tablet) 150 mg PO DAILY [facility] Last Admin: 11/07/24 09:37 Dose: 150 mg Documented By: JOHN PAUL Sodium Chloride (0.9 % Sodium Chloride Flush 3 Ml Syringe) 3 ml IVFLUSH QSHIFT [facility] Last Admin: 11/07/24 09:39 Dose: 3 ml Documented By: JOHN PAUL Labs 11/06/24 06:14 11/06/24 06:14 Labs: Laboratory Results - last 24 hr 11/06/24 11/06/24 11/07/24 16:01 20:16 07:59 POC Glucose 232 H 291 H 192 H 11/07/24 11:28 POC Glucose 226 H Assessment and Plan (1) Fall: Status: Acute Assessment and Plan: 69yo F with DM2, HLD, schizophrenia, dementia, depression/anxiety, HTN who sustained fall from leg weakness, no LOC found to have bladder distension with severe hydronephrosis 1.Fall/leg weakness - orthostatics negative - telemetry negative; d/c telemetry - TTE 11/05 - 1. Normal LV ejection fraction of 65-70% with mild LVH with impaired relaxation filling pattern 2. Calcific aortic and mitral valve changes noted with normal cardiac valvular Dopplers 3. Normal RV systolic pressure 4. No significant pericardial effusion - MRI L-spine: 1. No evidence of acute injury to the lumbar spine. 2. Facet joint synovitis present at L4-5 bilaterally, left more so than right. 3. Grade 1 anterolisthesis of L4 on L5, degenerative. 4. Mild spinal canal stenosis at L2-3 and L3-4. 5. Moderate to advanced multilevel spondylosis with multilevel neural foraminal narrowing most pronounced at L5-S1. 6. Severe bilateral hydronephrosis and hydroureter with distention of the urinary bladder partially visualized. - Psych consult for polypharmacy pending (on 3 antipsychotics as outpt) as this may increase fall risk 2.Severe hydronephrosis -urinary retention resolved -Urology consulted; bethanechol; voiding trial completed...acceptable 3.UTI - ceftriaxone 11/03-, UCx contaminated, d/c on cefuroxime til 11/10 4.DM2 -acceptable control on current therapies -lispro correctional scale -adjust as indicated 5.Mood disorder/schizophrenia - aripiprazole, buspirone, lamotrigine, lorazepam, olanzapine, prn quetiapine, sertraline; Psych consult re polypharmacy as unclear why pt is on 3 antipsychotics [hold prn quetiapine] -await psych input 6.HTN -acceptable control on current therapies -adjust as indicated VTE ppx - enoxaparin dispo - PT eval: STR recommended; pt declined; plan home with VNA.Await psych input (2) Leg weakness: Status: Acute (3) UTI (urinary tract infection): Status: Acute (4) Type 2 diabetes mellitus with diabetic polyneuropathy: Status: Acute Quality Stroke Does the patient have a stroke diagnosis?: No VTE Prior VTE?: No VTE Risk Level:: Medical - moderate - high VTE Device Contraindication: N/A - Device Ordered VTE Drug Contraindication: N/A - Med Ordered
--- NOTE | 2024-11-07 14:04 | MHC.CM.PN ---
Patient is not yet medically cleared for dc (per MD PN/await Psych input); patient wants to return home and resume VNA services. CM will continue to follow.
[2024-11-07 15:46] LABS: Glucose, Whole Blood 262 mg/dL (60-115)
[2024-11-07] MEDS: Milk of Magnesia 30 ML ORAL.SUSP PO (16:05)
[2024-11-07 21:09] LABS: Glucose, Whole Blood 256 mg/dL (60-115)
[2024-11-08 04:00] VITALS: BP 106/55; PULSE 59; RESP 17; TEMP 36.2; O2SAT 94
[2024-11-08 07:24] LABS: Glucose, Whole Blood 199 mg/dL (60-115)
[2024-11-08 08:00] VITALS: BP 113/58; PULSE 58; RESP 20; TEMP 36.5; O2SAT 96
[2024-11-08] MEDS: 0.9 % Sodium Chloride Flush 3 ML SYRINGE IVFLUSH (09:28)
[2024-11-08] MEDS: Hydrocortisone 1 % Ointment 28.35 GM TUBE 1 APPL TOPICAL (09:30)
[2024-11-08 09:35] VITALS: PULSE 62
[2024-11-08 11:17] LABS: Glucose, Whole Blood 274 mg/dL (60-115)
[2024-11-08 11:24] VITALS: BP 117/64; PULSE 60; RESP 18; TEMP 37.1; O2SAT 95
--- NOTE | 2024-11-08 12:04 | P.DS_ITS ---
DS: Providers Provider Date of Service: 11/08/24 Date of admission: 11/03/24 23:35 Date of discharge: 11/08/24 Primary care physician: Gilda Maynard MD Consults: 11/04/24 14:15 Consult to Psychiatry Routine Consulting Provider: [facility] Psych Covering Reason for consultation: fall, /polypharmacy- 3 antipsychotics! 11/04/24 17:29 Consult to Urology Routine Consulting Provider: [facility] Urology Services Reason for consultation: hydronephrosis, urinary retention DS: Diagnosis Discharge Diagnosis (1) Fall: Status: Acute (2) Leg weakness: Status: Acute (3) UTI (urinary tract infection): Status: Acute (4) Type 2 diabetes mellitus with diabetic polyneuropathy: Status: Acute DS: Summary Hospital Course Hospital Course: 69 years old woman with past medical history significant for type 2 diabetes mellitus on insulin, hyperlipidemia, dementia, schizophrenic disorder, depression/anxiety and essential hypertension was brought to the emergency department after sustaining a fall yesterday at 14:00 while ambulating. She said that she fell because her legs became weaker and denied dizziness. She uses a walker for ambulation. She reports head trauma and bilateral knee trauma. She also denied palpitations, shortness on breath or chest pain. She also denied loss of consciousness. Patient reported one event of self-limited watery nonbloody diarrhea. She does complain of pelvic tenderness and pain with urination. She has an ongoing tobacco smoker since age 18 -currently smoking 3 cigarettes daily. Denied alcohol abuse or illicit drug use. Patient lives alone. In the ED, she was found to blood workup including CBC and CBC are unremarkable except for glucose 219. Total CK is 353. Urinalysis showed large leukocyte esterase and WBC 11-20. Head CT scan showed no acute intracranial abnormalities. C-spine CT scan showed no acute dislocation or fractures. Left shoulder showed no acute findings. ECG showed right bundle branch block and no ischemic changes. Hospital Course Patient admitted to telemetry where monitor failed to demonstrate any acute dysrhythmias. She was started on ceftriaxone with good resolution of her symptoms. Urine culture demonstrated [id number] multiple colonies however given her response to ceftriaxone antibiotic therapy will be completed orally upon discharge. She was seen in consultation by Physical therapy who deemed her a candidate for short-term rehab but the patient repeatedly refused rehab. At this time she will be discharged home for PT and nursing in the home she will follow up with the PCP next available Time Attestation Discharge Coordination Time (in mins): 35 Quality: Safe Use of Opioids Does Pt have an Active Cancer Diagnosis on the Problem List?: No Quality: Stroke Does the patient have a stroke diagnosis?: No Physical Exam Vital Signs: Vital Signs: Last Vital Signs Temp 98.7 F 11/08/24 11:24 Pulse 60 11/08/24 11:24 Resp 18 11/08/24 11:24 BP 117/64 11/08/24 11:24 Pulse Ox 95 11/08/24 11:24 O2 Del Method Room Air 11/08/24 11:24 O2 Flow Rate 92 11/05/24 15:56 BMI result Body Mass Index 24.8 Const: Other: Awake alert no acute distress Resp: Other: Clear to auscultation bilaterally no rales rhonchi or wheezes Cardio: Other: No S4; positive S1-S2; no S3 murmurs rubs or gallops GI: Other: Soft nontender nondistended normoactive bowel sounds Extrem: Other: No edema bilaterally DS: Data Data Completed and Pending Labs on day of discharge: Laboratory Results - last 24 hr 11/07/24 11/07/24 11/08/24 15:43 20:55 07:16 POC Glucose 262 H 256 H 199 H 11/08/24 11:12 POC Glucose 274 H Discharge Plan Discharge Anticipated Discharge Date/Time: 11/08/24 11:57 Patient Disposition: Home Health Service Discharge Diagnosis: Leg weakness Referrals: Gilda De La Torre MD [Primary Care Provider, Internal Medicine] - 1 Week Discharge Medications: New bethanechol chloride 25 mg Tablet 50 mg PO BID Qty: 60 0RF cefuroxime axetil 500 mg tablet 500 mg PO BID 5 Days Qty: 10 0RF Continued (DME) pen needle, diabetic [Unifine Pentips] 32 gauge x 5/32 needle 1 ea miscellaneous TID Qty: 100 1RF Rx Instructions: 4x daily (DME) FreeStyle Ni 2 Sensor Kit See Rx Instructions .ROUTE .COMPLEX Qty: 2 5RF Dose Instruction: As directed change every 14 days Rx Instructions: As directed change every 14 days (DME) FreeStyle Lite Strips Strip See Rx Instructions .Route Qty: 100 5RF Rx Instructions: Tests 4X/day (DME) blood-glucose meter [FreeStyle Lite Meter] Kit See Rx Instructions .ROUTE .MEDSUPPLY Qty: 1 0RF Rx Instructions: As directed 2x/day (DME) lancets [FreeStyle Lancets] 28 gauge misc 1 gauge topical TID Qty: 100 11RF acetaminophen 650 mg tablet extended release 1,300 mg PO BID PRN (Reason: mild pain) gabapentin 100 mg capsule 200 mg PO DAILY olanzapine 5 mg tablet 5 mg PO BEDTIME aspirin 81 mg tablet,delayed release (DR/EC) 81 mg PO DAILY lorazepam 0.5 mg tablet 0.5 mg PO QPM quetiapine 50 mg tablet 50 mg PO BEDTIME PRN (Reason: Agitation) lamotrigine 200 mg tablet 200 mg PO DAILY polyethylene glycol 3350 17 gram/dose powder 17 g PO DAILY insulin glargine [Lantus Solostar U-100 Insulin] 100 unit/mL (3 mL) insulin pen 26 unit subcut BEDTIME diclofenac sodium 1 % gel 1 g topical BID PRN (Reason: Pain) Trulicity 4.5 mg/0.5 mL pen injector 4.5 mg SUBCUT MO (DME) FreeStyle Ni 2 Agency Misc See Rx Instructions .Route Qty: 1 0RF Rx Instructions: As directed docusate sodium 100 mg capsule 200 mg PO BEDTIME Qty: 180 3RF omeprazole 20 mg capsule,delayed release(DR/EC) 20 mg PO BID insulin lispro [Humalog KwikPen Insulin] 100 unit/mL insulin pen 1 sliding scale dose subcut USEASDIRECTD buspirone 10 mg tablet 10 mg PO TID atorvastatin 80 mg tablet 80 mg PO DAILY metoprolol tartrate 25 mg tablet 25 mg PO BID furosemide 20 mg tablet 20 mg PO DAILY lisinopril 10 mg tablet 10 mg PO DAILY metformin 500 mg tablet 500 mg PO BID sertraline 100 mg tablet 150 mg PO DAILY aripiprazole 20 mg tablet 20 mg PO DAILY Discharge Orders: Discharge Order (Routine); Ordered 11/08/24 Ordered By: Ezekiel Salinas Diet: Advance to usual diet Activity on Discharge: As tolerated Stand Alone Forms: Patient Portal Discharge page Print Language: Upper Sorbian Care Plan Goals: Continue all previous medicines as taken prior to hospital. Health Concerns: Ceftin 500 mg twice daily for 5 days to complete her treatment for urinary tract infection. Bethanechol for urinary retention. Plan of Treatment: Follow up with PCP next available; if PCP will refer you back to urology for follow up Assessment: See discharge summary
--- NOTE | 2024-11-08 12:46 | MHC.CM.PN ---
Patient has been medically cleared for dc to home today, with services (patient declined PT's recommendation for STR); Patient is active with [facility], who has been notified of today's dc. CM spoke with Son/Marcos @ [phone] and he or his Brother/Fahad will transport to home around 4PM today. IMM was addressed with Patient.
[2024-11-08 15:33] VITALS: BP 139/70; PULSE 64; RESP 17; TEMP 36.5; O2SAT 95
== END 2024-11-08 17:00 | disposition home health service (06) | DRG 690 ==
LOC: HO.ED 20:16 → HO.EDOVER 23:47 → HO.IMC 11-04 19:44
PROVIDERS: Family Medicine; Physician Assistant Medical; Admitting Provider Internal Medicine; Emergency Provider Emergency Medicine; PCP Internal Medicine; Visit Provider Hospitalist
DX: N13.6 Pyonephrosis (principal); F03.90 Unspecified dementia, unspecified severity, without behavioral disturbance, psychotic disturbance, mood disturbance, and anxiety; I25.10 Atherosclerotic heart disease of native coronary artery without angina pectoris; R33.9 Retention of urine, unspecified; N18.30 Chronic kidney disease, stage 3 unspecified; K21.9 Gastro-esophageal reflux disease without esophagitis; F20.9 Schizophrenia, unspecified; I12.9 Hypertensive chronic kidney disease with stage 1 through stage 4 chronic kidney disease, or unspecified chronic kidney disease; E11.42 Type 2 diabetes mellitus with diabetic polyneuropathy; E78.5 Hyperlipidemia, unspecified; M25.562 Pain in left knee; M25.561 Pain in right knee; R31.9 Hematuria, unspecified; I45.10 Unspecified right bundle-branch block; E11.22 Type 2 diabetes mellitus with diabetic chronic kidney disease; W19.XXXA Unspecified fall, initial encounter; Z79.4 Long term (current) use of insulin; Z79.82 Long term (current) use of aspirin; Z79.85 Long-term (current) use of injectable non-insulin antidiabetic drugs; Z79.899 Other long term (current) drug therapy
CPT/HCPCS: 36415; 70450; 72125; 72148; 73030; 73560; 76775; 80048; 80053; 81001; 82306; 82550; 82728; 82947; 83540; 83735; 84484; 85025; 85027; 87086; 93005; 93306; 97112; 97116; 97162; 99285; J0696; J7120

== ENCOUNTER → 2024-11-03 18:21 | Outpatient (BNV) | payer OTHER, SELFPAY | PROVIDERS: Emergency Provider Emergency Medicine; PCP Internal Medicine; Visit Provider Radiology Diagnostic Radiology | DX: Z04.3 Encounter for examination and observation following other accident (principal); S09.90XA Unspecified injury of head, initial encounter; M25.512 Pain in left shoulder; M19.012 Primary osteoarthritis, left shoulder; W19.XXXA Unspecified fall, initial encounter | CPT/HCPCS: 70450; 72125; 73030 ==

== ENCOUNTER → 2024-11-03 18:22 | Outpatient (BNV) | payer OTHER, SELFPAY | PROVIDERS: Admitting Provider Internal Medicine; Emergency Provider Emergency Medicine; PCP Internal Medicine; Visit Provider Internal Medicine Cardiovascular Disease | DX: I45.2 Bifascicular block (principal) | CPT/HCPCS: 93010 ==

== ENCOUNTER 2024-11-03 23:35 | Outpatient (BNV) | payer OTHER, SELFPAY | END 2024-11-05 07:00 | PROVIDERS: Admitting Provider Internal Medicine; Emergency Provider Emergency Medicine; PCP Internal Medicine; Visit Provider Internal Medicine Cardiovascular Disease | DX: I35.8 Other nonrheumatic aortic valve disorders (principal); I34.89 Other nonrheumatic mitral valve disorders; I36.1 Nonrheumatic tricuspid (valve) insufficiency | CPT/HCPCS: 93306 ==

== ENCOUNTER 2024-11-03 23:35 | Outpatient (BNV) | payer OTHER, SELFPAY | END 2024-11-07 08:00 | PROVIDERS: Admitting Provider Internal Medicine; Emergency Provider Emergency Medicine; PCP Internal Medicine; Visit Provider Radiology Diagnostic Radiology | DX: N32.89 Other specified disorders of bladder (principal) | CPT/HCPCS: 76775 ==

== ENCOUNTER 2024-11-03 23:35 | Outpatient (BNV) | payer OTHER, SELFPAY | END 2024-11-04 00:16 | PROVIDERS: Admitting Provider Internal Medicine; Emergency Provider Emergency Medicine; PCP Internal Medicine; Visit Provider Radiology Diagnostic Radiology | DX: M47.816 Spondylosis without myelopathy or radiculopathy, lumbar region (principal); M48.07 Spinal stenosis, lumbosacral region; N13.30 Unspecified hydronephrosis; N13.4 Hydroureter; S82.831D Other fracture of upper and lower end of right fibula, subsequent encounter for closed fracture with routine healing | CPT/HCPCS: 72148; 73560 ==

== ENCOUNTER → 2024-11-03 23:35 | Outpatient (BNV) | payer OTHER, SELFPAY | PROVIDERS: Admitting Provider Internal Medicine; Emergency Provider Emergency Medicine; PCP Internal Medicine; Visit Provider Urology | DX: R33.9 Retention of urine, unspecified (principal) | CPT/HCPCS: 99222 ==

== ENCOUNTER → 2024-11-03 23:35 | Outpatient (BNV) | payer OTHER, SELFPAY | PROVIDERS: Admitting Provider Internal Medicine; Emergency Provider Emergency Medicine; PCP Internal Medicine; Visit Provider Internal Medicine | DX: E11.65 Type 2 diabetes mellitus with hyperglycemia (principal); N39.0 Urinary tract infection, site not specified; W19.XXXA Unspecified fall, initial encounter | CPT/HCPCS: 99223; 99232; 99499 ==

== ENCOUNTER 2024-11-11 11:23 | Emergency (ER) | payer OTHER, SELFPAY ==
[2024-11-11] VITALS (8 sets, daily range): BP systolic 103–160; BP diastolic 45–80; PULSE 57–85; RESP 14–19; TEMP 36.4–37.2; O2SAT 97–100; BMI 27.6
--- NOTE | 2024-11-11 | ECG_ITS ---
Test Reason : FALL Blood Pressure : */* mmHG Vent. Rate : 64 BPM Atrial Rate : * BPM P-R Int : * ms QRS Dur : 138 ms QT Int : 420 ms P-R-T Axes : * -13 -17 degrees QTcB Int : 433 ms Artifact in tracing Normal sinus rhythm Right bundle branch block Abnormal ECG When compared with ECG of 03-Nov-2024 19:57, No significant changes seen Referred By: Generic ED Physician Electronically Signed By: TOMASA TUTTLE
--- NOTE | ~2024-11-11 | CT_ITS ---
CLINICAL HISTORY: fall with head strike CT cervical spine without contrast Comparison: CT/SR - CT CERVICAL SPINE WO IV CON - 11/03/24 18:56 EDT Findings: Mild osteopenia. No acute findings on limited view of the intracranial contents. No cervical fluid collections or masses. Lung apices are clear. C1-2: Mild anterior osteoarthrosis. C5-6: Grade 1 retrolisthesis C5 over C6. Moderate DJD. Ssry-vw-epunvxbc anterior spurring.Moderate to severe bilateral neural foraminal stenosis. C6-7: Moderate to severe DJD. Xwnd-xq-mfmbkcai anterior spurring. Moderate to severe left and moderate right calcified atherosclerotic disease of the proximal internal carotid arteries. IMPRESSION: 1. No acute cervical spine findings. 2. Grade 1 retrolisthesis C5 over C6. 3. Moderate to severe degenerative changes at C5-C6 and C6-C7. 4. Mild osteopenia. This document has been electronically signed by: Michael Restrepo MD on 11/11/2024 14:35:57
--- NOTE | ~2024-11-11 | CT_ITS ---
CLINICAL HISTORY: fall with head strike CT head without contrast Comparison: CT/REG/SR - CT HEAD/BRAIN WO IV CON - 11/03/24 18:56 EDT Findings: No intra-axial mass, midline shift, hydrocephalus, or acute hemorrhage. Mild heterogeneous low attenuation in the periventricular white matter. Bpas-yn-crazfkvc cerebral atrophy. There is no sinus or mastoid fluid. The orbits are unremarkable. No skull fracture. IMPRESSION: 1. No acute intracranial findings. 2. Mild chronic periventricular microvascular ischemic disease 3. Nwph-mq-jocucikx cerebral atrophy. This document has been electronically signed by: Michael Restrepo MD on 11/11/2024 14:40:15
--- NOTE | 2024-11-11 11:40 | ED.GENADULT ---
HPI - General Adult General Chief complaint: Fall Stated complaint: FALL LAST NIGHT Time Seen by Provider: 11/11/24 11:39 Source: patient, EMS, RN notes reviewed and old records reviewed Mode of arrival: EMS Limitations: no limitations History of Present Illness ED Provider: Tacos HPI narrative: Patient is a 69-year-old female with history of urinary retention, hypertension, lumbar radiculopathy, T2 dm with diabetic polyneuropathy, CKD stage 3, dyslipidemia presenting to the emergency department after multiple recent falls. Fell last night with reported head strike, denies loss of consciousness. She is not anticoagulated. Patient's home health aide called the ambulance today due to recent falls. Patient had previously been declining short-term rehab but today's stated that she is agreeable. She complains of posterior headache and neck pain. C-collar in place on arrival placed by EMS. She denies any blurred vision, double vision or other visual changes. Denies any chest pain, palpitations, shortness of breath, dizziness or lightheadedness. MD complaint: multiple falls, headache Related Data Home Medications ?Medication ?Instructions ?Recorded ?Confirmed atorvastatin 80 mg tablet 80 mg PO DAILY 01/19/24 11/11/24 buspirone 10 mg tablet 10 mg PO TID 01/19/24 11/11/24 furosemide 20 mg tablet 20 mg PO DAILY 01/19/24 11/11/24 lisinopril 10 mg tablet 10 mg PO DAILY 01/19/24 11/11/24 metformin 500 mg tablet 500 mg PO BID 01/19/24 11/11/24 metoprolol tartrate 25 mg tablet 25 mg PO BID 01/19/24 11/11/24 acetaminophen 650 mg 1,300 mg PO BID PRN mild pain 01/20/24 11/11/24 tablet,extended release aripiprazole 20 mg tablet 20 mg PO DAILY 01/20/24 11/11/24 gabapentin 100 mg capsule 200 mg PO DAILY 01/20/24 11/11/24 insulin lispro 100 unit/mL 1 sliding scale dose subcut QIDACHS 01/20/24 11/11/24 subcutaneous pen (Humalog KwikPen (U-100) Insulin) omeprazole 20 mg capsule,delayed 20 mg PO BID@0630,1630 01/20/24 11/11/24 release sertraline 100 mg tablet 150 mg PO DAILY 01/20/24 11/11/24 aspirin 81 mg tablet,delayed 81 mg PO DAILY 10/29/24 11/11/24 release lorazepam 0.5 mg tablet 0.5 mg PO BEDTIME 10/29/24 11/11/24 olanzapine 5 mg tablet 5 mg PO BEDTIME 10/29/24 11/11/24 quetiapine 50 mg tablet 50 mg PO BEDTIME PRN Agitation 10/29/24 11/11/24 diclofenac sodium 1 % topical gel 1 g topical BID PRN Pain 11/04/24 11/11/24 dulaglutide 4.5 mg/0.5 mL 4.5 mg subcut MO 11/04/24 11/12/24 subcutaneous pen injector (Trulicity) insulin glargine 100 unit/mL (3 26 unit subcut BEDTIME 11/04/24 11/11/24 mL) subcutaneous pen (Lantus Solostar U-100 Insulin) lamotrigine 200 mg tablet 200 mg PO DAILY 11/04/24 11/11/24 polyethylene glycol 3350 17 17 g PO DAILY 11/04/24 11/11/24 gram/dose oral powder Previous Rx's ?Medication ?Instructions ?Recorded lancets 28 gauge (FreeStyle #100 ea 10/09/20 Lancets) pen needle, diabetic 32 gauge x #100 ea 01/05/22 (Unifine Pentips) docusate sodium 100 mg capsule 200 mg (2 x 100 mg) PO BEDTIME 05/19/22 #180 caps flash glucose scanning reader #1 ea 06/16/22 (FreeStyle Ni 2 Rice) flash glucose sensor (FreeStyle #2 kits 07/21/23 Ni 2 Sensor kit) blood sugar diagnostic (FreeStyle #100 ea 08/04/23 Lite Strips) blood-glucose meter (FreeStyle #1 ea 08/04/23 Lite Meter kit) bethanechol chloride 25 mg tablet 50 mg (2 x 25 mg) PO BID #60 tabs 11/08/24 cefuroxime axetil 500 mg tablet 500 mg PO BID 5 days #10 tabs 11/08/24 lorazepam 0.5 mg tablet 0.5 mg PO BEDTIME #3 tabs 11/13/24 Allergies Allergy/AdvReac Type Severity Reaction Status Date / Time duloxetine (Cymbalta) Allergy Unknown Unknown Verified 11/11/24 11:44 hydroxyzine Allergy Unknown unknown Verified 11/11/24 11:44 risperidone Allergy Unknown Unknown Verified 11/11/24 11:44 trazodone Allergy Unknown Unknown Verified 11/11/24 11:44 quetiapine (From SEROQUEL) AdvReac Severe Acute Verified 11/11/24 11:44 Dystonic reaction Review of Systems Review of Systems: As per HPI Yes all other systems are reviewed and are negative Constitutional: Constitutional: Reports as per HPI PMFSH Past Medical History Medical History Breast calcification, left Disc degeneration, lumbar Dermatophytosis Dermatitis Joint pain Depression with anxiety Schizoaffective disorder PTSD (post-traumatic stress disorder) Dementia Smoking CAD (coronary artery disease) Type 2 diabetes mellitus with chronic kidney disease Chronic kidney disease, stage 3 unspecified Type 2 diabetes mellitus with diabetic polyneuropathy Essential hypertension Dyslipidemia Diabetes mellitus with hyperglycemia Surgical History Hx of colonoscopy Hx of cataract surgery Hx of tubal ligation Hx of section Family History Family History Father No problems noted. Mother No problems noted. Social History Social History Household Members: None Household Members Other:: has CHD Services Housing: Apartment Do you presently have visiting nurse or other home services: Yes Unable to assess alcohol history related to: Unknown Alcohol intake: former Patient Tobacco Use Status: Current everyday Tobacco user Tobacco use type: Smokeless Tobacco Cigarette Packs Per Day: 1 Cigarettes Per Day: 4 e-Cigarette/Vaping Use: Never Used Second Hand Smoke Exposure: Yes Advance Directives: No Advance Directives Information Provided: No Advance Directives Date on File: 09/30/20 Do you have a plan to hurt others: No Plan service: No Sexual orientation: Straight/Heterosexual Physical Exam ED Vital Signs: Vital Signs - 24 hr 11/12/24 11:36 11/12/24 15:25 11/12/24 19:07 Temperature 97.8 F Pulse Rate 103 H 87 85 Respiratory Rate 18 18 20 Blood Pressure 144/88 H 150/56 H 142/74 H Pulse Oximetry 95 97 98 Oxygen Delivery Method Room Air Room Air Room Air 11/12/24 20:48 11/12/24 21:00 11/13/24 06:15 Temperature 97.5 F 98.3 F Pulse Rate 78 76 Respiratory Rate 18 16 18 Blood Pressure 140/53 H 116/53 L Pulse Oximetry 94 96 Oxygen Delivery Method Room Air Room Air 11/13/24 09:38 11/13/24 09:39 11/13/24 09:39 Temperature Pulse Rate 77 Respiratory Rate Blood Pressure 113/52 L 113/52 L 113/52 L Pulse Oximetry Oxygen Delivery Method BMI result Body Mass Index 27.6 Vital signs have been reviewed and appear to be correct. Blood pressure normal. Heart rate normal. Respiratory rate normal. Temperature normal. Oxygen saturation normal. Const General: cooperative, healthy appearing and no acute distress Orientation/consciousness: oriented to person, oriented to place, oriented to time and patient oriented x3 Limitations: no limitations HENMT Head: Yes normal to inspection, Yes normocephalic, No Mathew's sign and No periorbital ecchymosis Ears: hearing grossly normal bilaterally and external ears normal General nose exam: Normal external nose present and Normal nasal mucous membranes and turbinates present Face and sinus: Yes face symmetric Mouth: oropharynx normal and moist mucous membranes Throat: Yes uvula midline Eyes Pupils: Equal, round and reactive pupils present Neck Neck: Yes normal visual inspection and Yes supple Resp Effort & Inspection: normal respiratory effort and able to speak in complete sentences Auscultation: clear to auscultation bilaterally Cardio Rate: regular rate Rhythm: regular rhythm Heart sounds: S1 normal heart sound present and S2 normal heart sound present GI Palpation (GI): Soft to palpation and nontender Auscultation: normoactive bowel sounds General: Yes no CVA tenderness Back/Spine/Pelvis Back: no CVA tenderness Cervical Spine: collar present, No Cervical spine tenderness and No step off deformity Thoracic/Lumbar Spine: thoracic and lumbar spine normal to inspection, No thoracic spinal tenderness and No lumbar spinal tenderness Skin General skin exam: elasticity normal and turgor normal Neuro General: oriented to person, oriented to place, oriented to time, patient oriented x3, tone normal, moves all extremities, Normal light touch and pain sensation, no focal motor deficits, CN's II-XI intact bilaterally and deep tendon reflexes 2+ bilaterally Cranial nerves: Yes Equal, round and reactive pupils present Cognition (Neuro): normal cognition Motor exam (neuro): 5/5 motor strength present throughout, Normal motor muscle tone present throughout and Motor abnormalities not present Extrem General: Yes full ROM, Yes no pedal edema and Yes no calf tenderness Psych Mental Status: mental status grossly normal Affect: normal affect Thought process: Normal thought process present Course Course Course Narrative: Time: 08:28 Date: 11/12/24 Provider: BARON Bolaños Patient in physician observation for case management needs. No acute events reported overnight.? Awaiting case management and PT eval. We will continue to monitor. Time: 08:23 Date: 11/13/24 Provider: Stephanie Oviedo PA-C Observation continues. Case management continues to follow. Time: 10:24 Date: 11/13/24 Provider: Stephanie Oviedo PA-C Observation care revealed the the patient does not meet medical necessity for hospitalization. Final disposition of discharge to [facility] discussed with the patient. Patient completed observation care at 1024 on 11/13/2024, total time spent in observation care was 1 day, 18 hours, and 5 minutes. Medications Administered Generic Name Dose Route Start Last Admin Trade Name Freq PRN Reason Stop Dose Admin Acetaminophen 650 mg 11/11/24 16:21 11/12/24 20:39 Acetaminophen 325 Mg Tablet PO 650 mg Q6H PRN Administration Pain, Mild 1-3,fever,headache Aripiprazole 20 mg 11/13/24 09:00 11/13/24 09:39 Aripiprazole 20 Mg Tablet PO 20 mg DAILY DELMER Administration Aspirin 81 mg 11/13/24 09:00 11/13/24 09:39 Aspirin Enteric Coated 81 Mg Tablet. PO 81 mg DAILY DELMER Administration Atorvastatin Calcium 80 mg 11/13/24 09:00 11/13/24 09:38 Atorvastatin Calcium 80 Mg Tablet PO 80 mg DAILY DELMER Administration Bethanechol Chloride 50 mg 11/13/24 09:00 11/13/24 09:38 Bethanechol Chloride 25 Mg Tablet PO 50 mg BID DELMER Administration Buspirone HCl 10 mg 11/13/24 09:00 11/13/24 09:39 Buspirone Hcl 10 Mg Tablet PO 10 mg TID DELMER Administration Docusate Sodium 100 mg 11/11/24 16:21 11/12/24 20:54 Docusate Sodium 100 Mg Capsule PO 100 mg BID PRN Administration Constipation Enoxaparin Sodium 40 mg 11/11/24 17:00 11/13/24 06:18 Enoxaparin Sodium 40 Mg/0.4 Ml Syringe SUBCUT 40 mg Q12H DELMER Administration Furosemide 20 mg 11/13/24 09:00 11/13/24 09:39 Furosemide 20 Mg Tablet PO 20 mg DAILY DELMER Administration Protocol Gabapentin 200 mg 11/13/24 09:00 11/13/24 09:38 Gabapentin 100 Mg Capsule PO 200 mg DAILY DELMER Administration Lamotrigine 200 mg 11/13/24 09:00 11/13/24 09:38 Lamotrigine 100 Mg Tablet PO 200 mg DAILY DELMER Administration Lisinopril 10 mg 11/13/24 09:00 11/13/24 09:38 Lisinopril 10 Mg Tablet PO 10 mg DAILY DELMER Administration Protocol Melatonin 6 mg 11/11/24 16:21 11/12/24 20:54 Melatonin 3 Mg Tablet PO 6 mg BEDTIME PRN Administration Sleep Metformin HCl 500 mg 11/13/24 09:00 11/13/24 09:38 Metformin Hcl 500 Mg Tablet PO 500 mg BID DELMER Administration Metoprolol Tartrate 25 mg 11/13/24 09:00 11/13/24 09:39 Metoprolol Tartrate 25 Mg Tablet PO 25 mg BID DELMER Administration Protocol Sertraline HCl 150 mg 11/13/24 09:00 11/13/24 09:37 Sertraline Hcl 50 Mg Tablet PO 150 mg DAILY DELMER Administration Discontinued Medications Generic Name Dose Route Start Last Admin Trade Name Freq PRN Reason Stop Dose Admin Sodium Zirconium Cyclosilicate 10 gm 11/11/24 15:45 11/11/24 16:00 Sodium Zirconium Cyclosilicate 10 Gm Powd.Pack PO 11/11/24 15:46 10 gm ONCE ONE Administration Medical Decision Making Medical Decision Making [facility] Narrative: Patient is a 69-year-old female with history of urinary retention, hypertension, lumbar radiculopathy, T2 dm with diabetic polyneuropathy, CKD stage 3, dyslipidemia presenting to the emergency department after multiple recent falls. On exam patient is awake, A+Ox3, VS WNL, afebrile, normal neurological exam without focal deficits, physical exam findings as above. Given reported symptoms and physical exam findings, initial differential includes but is not limited to ICH, skull or cervical vertebral fracture subluxation, electrolyte abnormality, UTI, viral illness. Labs notable for mild leukocytosis without left shift, mild hyperkalemia. Lokelma ordered. EKG shows normal sinus rhythm with RBBB which is present on previous EKGs. CT head and c-spine notable for no evidence of ICH, acute skull or cervical vertebral fracture subluxation. My interpretation is in agreement with the radiologist's interpretation. Results discussed with patient who is still agreeable to PT eval and possible STR placement. Patient placed on physician observation at this time pending PT/CM evaluation. Urinalysis is pending. Differential Diagnosis Differential Diagnoses: The differential diagnosis associated with the presentation includes as per [facility] Admission/Observation Consideration of admission/observation: Escalation of care including admission/observation considered Patient would have been admitted to the hospital had their clinical presentation warranted hospital admission. Lab Data [facility] Lab Attestation statement: I reviewed the patient's lab results. as per [facility] 11/11/24 12:02 11/11/24 12:02 Labs: Lab Results 11/11/24 11/11/24 11/12/24 Range/Units 12:02 17:15 06:26 WBC 11.1 H (4.8-10.8) X10*3/uL RBC 4.12 L (4.20-5.50) X10*6/uL Hgb 11.1 L (12.0-16.0) g/dl Hct 34.3 L (37.0-47.0) % MCV 83.3 (80.0-98.0) fL MCH 26.9 L (27.0-33.0) pg MCHC 32.4 (31.0-35.0) g/dl RDW 13.8 (11.0-16.0) % Plt Count 235 (160-400) X10*3/uL MPV 11.6 (9.4-12.3) fL Immature Gran % (Auto) 0.3 (0.0-0.4) % Neut % (Auto) 57.0 (45-73) % Lymph % (Auto) 28.6 (20-40) % Taney % (Auto) 10.8 (2-11) % Eos % (Auto) 2.8 (0-4) % Baso % (Auto) 0.5 (0-2) % Lymph # (Auto) 3.2 (1.2-4.9) X10*3/uL Taney # (Auto) 1.2 (0.1-1.2) X10*3/uL Eos # (Auto) 0.3 (0.0-0.4) X10*3/uL Baso # (Auto) 0.1 (0.0-0.2) X10*3/uL Abs Immat Gran (auto) 0.03 (0.00-0.03) X10*3/uL Absolute Neuts (auto) 6.3 (2.0-8.3) x10*3/uL Absolute Nucleated RBC 0.000 (0.0-0.012) X10*3/uL Nucleated RBC % (auto) 0.0 (0.0-0.2) /100WBC Sodium 131 L (135-145) mmol/L Potassium 5.4 H (3.3-5.1) mmol/L Chloride 98 (96-108) mmol/L Carbon Dioxide 26 (22-29) mmol/L Anion Gap 12 (12-20) BUN 25 H (9-16) mg/dL Creatinine 1.12 (0.5-1.4) mg/dL Estim Creat Clear Calc 40.1 Estimated GFR 48 POC Glucose 186 H (60-115) mg/dL Random Glucose 212 H (60-115) mg/dL Calcium 10.2 D (8.4-10.2) mg/dL Magnesium 2.2 (1.6-2.6) mg/dL Total Bilirubin 0.2 (0.0-1.0) mg/dL AST 58 H (5-31) U/L ALT 60 H (0-31) U/L Alkaline Phosphatase 98 (39-117) U/L Total Protein 8.1 H (6.5-8.0) g/dL Albumin 4.5 (3.5-5.0) g/dL Urine Color Yellow Urine Appearance Clear Urine pH 6.5 (5.0-9.0) Ur Specific [place] 1.010 (1.005-1.025) Urine Protein Negative (Neg-Trace) mg/dL Urine Glucose (UA) 100 H (Negative) mg/dL Urine Ketones Negative (Negative) mg/dL Urine Blood Negative (Negative) Urine Nitrite Negative (Negative) Ur Leukocyte Esterase Negative (Negative) COVID-19 (GILMAR) Negative (Negative) COVID-19 Clin Com See Note Influenza Type A (KARLA) Negative (Negative) Influenza Type B (KARLA) Negative (Negative) Influenza A & B Note See Note 11/13/24 Range/Units 07:29 WBC (4.8-10.8) X10*3/uL RBC (4.20-5.50) X10*6/uL Hgb (12.0-16.0) g/dl Hct (37.0-47.0) % MCV (80.0-98.0) fL MCH (27.0-33.0) pg MCHC (31.0-35.0) g/dl RDW (11.0-16.0) % Plt Count (160-400) X10*3/uL MPV (9.4-12.3) fL Immature Gran % (Auto) (0.0-0.4) % Neut % (Auto) (45-73) % Lymph % (Auto) (20-40) % Taney % (Auto) (2-11) % Eos % (Auto) (0-4) % Baso % (Auto) (0-2) % Lymph # (Auto) (1.2-4.9) X10*3/uL Taney # (Auto) (0.1-1.2) X10*3/uL Eos # (Auto) (0.0-0.4) X10*3/uL Baso # (Auto) (0.0-0.2) X10*3/uL Abs Immat Gran (auto) (0.00-0.03) X10*3/uL Absolute Neuts (auto) (2.0-8.3) x10*3/uL Absolute Nucleated RBC (0.0-0.012) X10*3/uL Nucleated RBC % (auto) (0.0-0.2) /100WBC Sodium (135-145) mmol/L Potassium (3.3-5.1) mmol/L Chloride (96-108) mmol/L Carbon Dioxide (22-29) mmol/L Anion Gap (12-20) BUN (9-16) mg/dL Creatinine (0.5-1.4) mg/dL Estim Creat Clear Calc Estimated GFR POC Glucose 264 H (60-115) mg/dL Random Glucose (60-115) mg/dL Calcium (8.4-10.2) mg/dL Magnesium (1.6-2.6) mg/dL Total Bilirubin (0.0-1.0) mg/dL AST (5-31) U/L ALT (0-31) U/L Alkaline Phosphatase (39-117) U/L Total Protein (6.5-8.0) g/dL Albumin (3.5-5.0) g/dL Urine Color Urine Appearance Urine pH (5.0-9.0) Ur Specific [place] (1.005-1.025) Urine Protein (Neg-Trace) mg/dL Urine Glucose (UA) (Negative) mg/dL Urine Ketones (Negative) mg/dL Urine Blood (Negative) Urine Nitrite (Negative) Ur Leukocyte Esterase (Negative) COVID-19 (GILMAR) (Negative) COVID-19 Clin Com Influenza Type A (KARLA) (Negative) Influenza Type B (KARLA) (Negative) Influenza A & B Note Independent Interpretation I performed an independent interpretation of an: EKG (Normal sinus rhythm with right bundle-branch block, rate 66 beats per minute, normal MT interval, right bundle-branch block present on previous EKGs) and CT Scan Interpretation: CT head and C-spine without evidence of ICH, acute skull or cervical vertebral fracture subluxation. Radiology Impression Discussion of test interpretation with radiology: I have reviewed the radiologist's reading. Radiologist Impression: IMPRESSION: 1. No acute cervical spine findings. 2. Grade 1 retrolisthesis C5 over C6. 3. Moderate to severe degenerative changes at C5-C6 and C6-C7. 4. Mild osteopenia. CT head without contrast Comparison: CT/REG/SR - CT HEAD/BRAIN WO IV CON - 11/03/24 18:56 EDT Findings: No intra-axial mass, midline shift, hydrocephalus, or acute hemorrhage. Mild heterogeneous low attenuation in the periventricular white matter. [id number]-jp-[id number] cerebral atrophy. There is no sinus or mastoid fluid. The orbits are unremarkable. No skull fracture. IMPRESSION: 1. No acute intracranial findings. 2. Mild chronic periventricular microvascular ischemic disease 3. Xcmf-me-schguhay cerebral atrophy. External Record Review External record reviewed: Inpatient record, Office record and Outpatient record Discharge Plan Discharge Clinical Impression: Multiple falls, Hyperkalemia Patient Disposition: Xfer SNF Transfer Details: Anuj Tolbert Instructions: Fall Prevention for Older Adults (ED), Hyperkalemia (ED) Additional Instructions: You were evaluated in the emergency department today after multiple recent falls. The CT scans of your head and neck did not show evidence of any bleeding in her brain or fracture of your skull or cervical spine. Your labs showed a slightly elevated potassium level and you were given medication to correct this. Prescriptions: New lorazepam 0.5 mg tablet 0.5 mg PO BEDTIME Qty: 3 0RF No Action (DME) pen needle, diabetic [Unifine Pentips] 32 gauge x needle 1 ea miscellaneous TID Qty: 100 1RF Rx Instructions: 4x daily (DME) FreeStyle Ni 2 Sensor Kit See Rx Instructions .ROUTE .COMPLEX Qty: 2 5RF Dose Instruction: As directed change every 14 days Rx Instructions: As directed change every 14 days (DME) FreeStyle Lite Strips Strip See Rx Instructions .Route Qty: 100 5RF Rx Instructions: Tests 4X/day (DME) blood-glucose meter [FreeStyle Lite Meter] Kit See Rx Instructions .ROUTE .MEDSUPPLY Qty: 1 0RF Rx Instructions: As directed 2x/day (DME) lancets [FreeStyle Lancets] 28 gauge misc 1 gauge topical TID Qty: 100 11RF acetaminophen 650 mg tablet extended release 1,300 mg PO BID PRN (Reason: mild pain) gabapentin 100 mg capsule 200 mg PO DAILY olanzapine 5 mg tablet 5 mg PO BEDTIME aspirin 81 mg tablet,delayed release (DR/EC) 81 mg PO DAILY lorazepam 0.5 mg tablet 0.5 mg PO BEDTIME quetiapine 50 mg tablet 50 mg PO BEDTIME PRN (Reason: Agitation) lamotrigine 200 mg tablet 200 mg PO DAILY polyethylene glycol 3350 17 gram/dose powder 17 g PO DAILY insulin glargine [Lantus Solostar U-100 Insulin] 100 unit/mL (3 mL) insulin pen 26 unit subcut BEDTIME diclofenac sodium 1 % gel 1 g topical BID PRN (Reason: Pain) Trulicity 4.5 mg/0.5 mL pen injector 4.5 mg SUBCUT MO bethanechol chloride 25 mg Tablet 50 mg PO BID Qty: 60 0RF cefuroxime axetil 500 mg tablet 500 mg PO BID 5 Days Qty: 10 0RF Rx Instructions: 5 DAY TREATMENT ENDS 11/13 (DME) Jorge L Dan [address] [facility] See Rx Instructions .Route Qty: 1 0RF Rx Instructions: As directed docusate sodium 100 mg capsule 200 mg PO BEDTIME Qty: 180 3RF omeprazole 20 mg capsule,delayed release(DR/EC) 20 mg PO BID@0630,1630 insulin lispro [Humalog KwikPen Insulin] 100 unit/mL insulin pen 1 sliding scale dose subcut QIDACHS buspirone 10 mg tablet 10 mg PO TID atorvastatin 80 mg tablet 80 mg PO DAILY metoprolol tartrate 25 mg tablet 25 mg PO BID furosemide 20 mg tablet 20 mg PO DAILY lisinopril 10 mg tablet 10 mg PO DAILY metformin 500 mg tablet 500 mg PO BID sertraline 100 mg tablet 150 mg PO DAILY aripiprazole 20 mg tablet 20 mg PO DAILY Referrals: [facility] [Other] Print Language: Mongolian
--- OUTSIDE RECORDS SUMMARY | 2024-11-11 11:56 | XMS_ITS | Encounter Summary ---
Author Organization [employer] Address [address] [place] [address] Care Team Providers Care Narrative Writer Name Role Phone Gilda De La Torre MD Primary Care Provide r Toya Kyle PharmD Unavailable [phone] Reason for Visit * Reason Onset Date Comments Error 06/10/2023 Encounter Details Date Type Department Care Team (Late st Contact Info) Description 06/10/2023 Telephone [facility] MEDICINE [address] [place], [place] [phone] Gilda De La Torre MD [address] [place], [place] [phone] Error Social History Tobacco Use Types Packs/Day [...] Care Team (Late st Contact Info) Description 12/31/2024 1:30 PM EST Office Visit [facility] [address] [place] [address] Gilda De La Torre MD [address] [place] [address] 01/30/2025 11:00 AM EST Office Visit [facility] OPTOMETRY [address] [place] [address] Adria, Meme, OD [address] [place] [address] documented as of this encounter Visit Diagnoses Not on filedocumented in this encounter Additional Health Concerns Assessment Noted Time PHQ-9 Depression Total Score: 14 023 10:32 AM EDT documented as of this encounter Care Teams Narrative Writer Relationship Specialty Start Date End Date Gilda De La Torre MD [address] [place] [id number] PCP - General Family Medicine 10/25/21 Toya Kyle, Fay [address] [place] [id number] Pharmacist Internal Medicine 11/06/23 documented as of this encounter
--- OUTSIDE RECORDS SUMMARY | 2024-11-11 11:56 | XMS_ITS | Encounter Summary ---
Author Organization [employer] Address [address] [place] [address] Care Team Providers Care Sewing Machine Operator Plastic Zipper Name Role Phone Gilda De La Torre MD Primary Care Provide r Toya Kyle PharmD Unavailable [phone] Encounter Details Date Type Department Care Team ([facility] Contact Info) Description 06/22/2022 Orders Only [facility] [address] [place] [address] Sneha Zapien LPN Social History Tobacco Use [...] Upcoming Encounters Date Type Department Care Team ([facility] Contact Info) Description 12/31/2024 1:30 PM EST Office Visit [facility] MEDICINE [address] [place], [place] [phone] Gilda De La Torre MD [address] [place], [place] [phone] 01/30/2025 11:00 AM EST Office Visit [facility] OPTOMETRY [address] [place] [address] Meme Covington, OD [address] [place] [address] documented as of this encounter Visit Diagnoses Not on filedocumented in this encounter Additional Health Concerns Assessment Noted Time PHQ-9 Depression Total Score: 14 023 10:32 AM EDT documented as of this encounter Care Teams Sewing Machine Operator Plastic Zipper Relationship Specialty Start Date End Date Gilda De La Torre MD [address] [place] [address] PCP - General Family Medicine 10/25/21 Toya Kyle, RosaD [address] [place] [address] Pharmacist Internal Medicine 11/06/23 documented as of this encounter
--- OUTSIDE RECORDS SUMMARY | 2024-11-11 11:56 | XMS_ITS | Encounter Summary ---
Author Organization [employer] Address [address] [place] [address] Care Team Providers Care Manager Lean Name Role Phone Gilda De La Torre MD Primary Care Provide r Toya Kyle PharmD Unavailable [phone] Reason for Visit * Reason Onset Date Comments NOV RECALL 11/06/2024 Encounter Details Date Type Department Care Team (Late st Contact Info) Description 11/06/2024 Telephone [facility] MED & PEDS [address] [place], [place] [phone] Gilda De La Torre MD [address] [place] [address] NOV RECALL Social History Tobacco Use Types Packs/Day Years [...] encounter Miscellaneous Notes * Telephone Encounter - Christen Delacruz MA - 11/06/2024 9:11 AM EDT T\C to pt to schedule a (NOV RECALL) f\u with pcp. Pt booked on 12/31/2024 at 1:30 pm. Mailed appt info. documented in this encounter Plan of Treatment Upcoming Encounters Date Type Department Care Team (Late st Contact Info) Description 12/31/2024 1:30 PM EST Office Visit [facility] MEDICINE [address] [place] [address] Gilda De La Torre MD [address] [place] [address] 01/30/2025 11:00 AM EST Office Visit [facility] OPTOMETRY [address] [place], [place] [phone] Meme Covington, OD [address] [place] [address] documented as of this encounter Visit Diagnoses Not on filedocumented in this encounter Additional Health Concerns Assessment Noted Time PHQ-9 Depression Total Score: 10 025 2:47 PM EDT documented as of this encounter Care Teams Manager Lean Relationship Specialty Start Date End Date Gilda De La Torre MD [address] [place] [address] PCP - General Family Medicine 10/25/21 Toya Kyle PharmD [address] [place], [place] [phone] Pharmacist Internal Medicine 11/06/23 documented as of this encounter
--- OUTSIDE RECORDS SUMMARY | 2024-11-11 11:56 | XMS_ITS | Encounter Summary ---
Author Organization [employer] Address [address] [facility] [address] [place] [address] Care Team Providers Care Golf Course Equipment Operator Name Role Phone Gilda De La Torre MD Primary Care Provide r Toya Kyle PharmD Unavailable [phone] Reason for Visit * Reason Comments Transition Of Care (Tcm) HDF unscheduled LVM Encounter Details Date Type Department Care Team (Late st Contact Info) Description 11/09/2024 Patient Outreach [facility] MEDICINE [address] [place], [place] [phone] Gilda De La Torre MD [address] [place], [place] [phone] Transition Of Care (Tcm) (HDF unscheduled LVM ) Social History Tobacco Use Types Packs/Day Years [...] as of this encounter Miscellaneous Notes * Significant Event - Leyla Peacock - 11/09/2024 9:37 AM EDT 11/09/24 0935 Hospital Discharges and Admission for [facility] Type of Visit Hospital Admission Date of Admission/Visit 11/03/24 Date of Discharge 11/08/24 Facility [facility] Diagnosis Fall, Leg Weakness, UTI, Disposition Discharged with Home Care Services Follow-Up Actions Follow-Up Needed Provider appointment Follow-Up Outcome Left Voicemail Initial Contact Date 11/09/24 BARRY Loco placed outbound call to patient for HDF outreach. BARRY placing call to offer patient with an HDF appointment with provider. No answer at this time. Patient's name and were not confirmed. CC left detailed message educating patient on importance of following up with provider following an inpatient admission. Provided contact information requesting a call back in order to schedule theHDF appointment. Patient educated via voicemail on extended clinic hours on Mondays and Wednesdays,and Walk-In Urgent Care Located in [facility]. Patient provided with after-hours line for [facility], , which offer night time triage service and option to transfer to information security specialist provider if needed. CC scanned into patient's chart. CC will place additional outreach call within 2-5 business days. documented in this encounter Plan of Treatment Upcoming Encounters Date Type Department Care Team (Late st Contact Info) Description 12/31/2024 1:30 PM EST Office Visit [facility] MEDICINE [address] [place] [address] Gilda De La Torre MD [address] [place] [address] 01/30/2025 11:00 AM EST Office Visit [facility] OPTOMETRY [address] [place] [address] Adria, Meme, OD [address] [place] [address] documented as of this encounter Visit Diagnoses Not on filedocumented in this encounter Additional Health Concerns Assessment Noted Time PHQ-9 Depression Total Score: 10 10/15/ 025 2:47 PM EDT documented as of this encounter Care Teams Golf Course Equipment Operator Relationship Specialty Start Date End Date Gilda De La Torre MD [address] [place] [phone] PCP - General Family Medicine 10/25/21 Toya Kyle, RosaD [address] [place] [phone] Pharmacist Internal Medicine 11/06/23 documented as of this encounter
--- OUTSIDE RECORDS SUMMARY | 2024-11-11 11:56 | XMS_ITS | Clinical Summary ---
Author Organization [facility] Address [address] [place] [address] Phone Care Team Providers Care Cable Television Technician Name Role Phone Jodi Toussaint RN Primary Care Provider [phone] Allergies No known active allergies Encounters Date Type Department Care Team Description 09/03/2024 2:15 PM EDT Office Visit Orthopedic Surgery [facility] [address] [facility] [address] [facility] [address] [place] [address] Marcel Alatorre, [place] Controlled type [...] PM EDT Office Visit Orthopedic Surgery - [place] [phone] [phone] Marcel Alatorre, [place] [address] [address] Health Maintenance Due Date Last Done Comments [...] pathology results were communicated to Daylin the psychiatric social worker supervisor assisting in the care of Ms. Guerline Mariano notified the psychiatric social worker supervisor of the benign results and the recommendation for mammography in one year at approximately 1430 hours on 03/20/2024 -------- ADDENDUM -------- Dictated By: Samy Martinez Dictated Date: 03/20/2024 14:28 ET Assigned Physician: Samy Martinez Reviewed and Electronically Signed By: Samy Martinez Signed Date: 03/20/2024 14:29 ET Workstation ID: [id number] Transcribed By: Self Edit Transcribed Date: 03/20/2024 [...] Signed Date: 03/16/2024 12:59 ET Workstation ID: [id number] Transcribed By: Self Edit Transcribed Date: 03/16/2024 [...] was explained to the patient through the supervisor salvage. There was no evidence of immediate complication. Postprocedure mammography was performed. An addendum will be generated when the pathology results become available RECOMMENDATION: Pathology pending for the left breast. -------- FINAL REPORT -------- Dictated By: Samy Martinez Dictated Date: 03/15/2024 12:08 ET Assigned Physician: Samy Martinez Reviewed and Electronically Signed By: Samy Martinez Signed Date: 03/15/2024 12:21 ET Workstation ID: [id number] Transcribed By: Self Edit Transcribed Date: 03/15/2024 [...] requested. PROCEDURE: Informed consent was obtained. A deputy district customs director was used throughout the consent process and [...] Most Recently Relevant to Health Maintenance Insurance [address] [address] [facility] Member Subscriber Plan / Payer (Ef fective 2023-Present) Name:Celeste Cunha Relation to Subscriber:Self Name:Celeste Cunha Payer ID:[id number] Group ID:[id number] Type:Not on file Address: [address] [place] [address] [facility] MEDICARE Member Subscriber Plan / Payer (Ef fective 2023-Present) Name:Celeste Cunha Relation to Subscriber:Self Name:Celeste Cunha Payer ID:[id number] Group ID:[id number] Type:Not on file Address: [address] [place] [address] Care Teams Cable Television Technician Relationship Specialty Start Date End Date Jodi Toussaint RN [address] [facility] [address] [place] [address] PCP - General 06/16/21
--- OUTSIDE RECORDS SUMMARY | 2024-11-11 11:56 | XMS_ITS | Clinical Summary ---
Author Organization [employer] Address [address] [facility] [address] [place] [address] Care Team Providers Care Car Inspector Name Role Phone Gilda De La Torre [...] hyperglycemia, with long-term current use of insulin ([facility]) Inject 6 units if blood sugar 200-250, inject 8 units if blood sugar >250 twice daily with meals 1 each 3 024 Active polyvinyl alcohol (Liquifilm Tears) 1.4 % ophthalmic solution INSTILL 1 DROP IN EACH EYE 4 (FOUR) TIMES DAILY 024 Active Alcohol Swabs (Alcohol Pads) 70 % padsIndications:T ype 2 diabetes mellitus with hyperglycemia, with long-term current use of insulin ([facility]) USE DIRECTED 3 (THREE) TIMES A DAY NEEDED 100 each 5 024 Active Aspirin Low Dose 81 MG EC tabletIndications :Primary hypertension TAKE 1 TABLET BY MOUTH ONCE DAILY 90 tablet 2 025 Active Additional Information Patient not taking.Reported on 06/08/2024 Nyamyc [id number] UNIT/GM powder APPLY TO THE AFFECTED AREA [...] 12 % lotion 024 Active Continuous Glucose Gas System Operator (FreeStyle Ni 3 Schneider) deviceIndications :Type 2 diabetes mellitus with other specified complication, with long-term current use of insulin ([facility]) 1 each Use as directed. 1 each 025 Active Additional Information Patient not taking.Reported on 06/08/2024 Continuous Glucose Sensor (FreeStyle Ni 3 Sensor) miscIndications:T ype 2 diabetes mellitus with other specified complication, with long-term current use of insulin ([facility]) 1 each Use as directed. 2 each Active Additional Information Patient not taking.Reported on 06/08/2024 glucose blood (FreeStyle Precision Marbin Test) test stripIndications: Type 2 diabetes mellitus with other specified complication, with long-term current use of insulin ([facility]) Use as directed; check blood sugar every [...] complication, with long-term current use of insulin ([facility]) Take 1 tablet (500 mg) by mouth [...] hyperglycemia, with long-term current use of insulin ([facility]) Inject 4.5 mg under the skin 1 [...] hyperglycemia, with long-term current use of insulin ([facility]) INJECT 24 UNITS UNDER THE SKIN ONCE DAILY AT BEDTIME 15 mL 11 025 Active Comfort EZ Pen [place] 32G X 4 MM misc USE DIRECTED WITH lantus solostar pens AND 3 (THREE) TIMES A DAY WITH humalog 100 each 025 Active True Comfort Pen [place] 32G X 4 MM misc USE 4 (FOUR) TIMES DAILY 023 2024 Discontinued insulin glargine (Lantus SoloStar) 100 UNIT/ML penIndications:Ty pe 2 diabetes mellitus with hyperglycemia, with long-term current use of insulin ([facility]) Inject subcutaneously 26 units once daily 024 2024 Discontinued Active Problems Problem Noted Date [...] 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 Diabetic neuropathy 08/20/2011 Assessment & Plan [...] Encounters Date Type Department Care Team Description 11/09/2024 Patient Outreach [facility] MEDICINE [address] [place] [address] Gilda De La Torre MD Transition Of Care (Tcm) (HDF unscheduled LVM ) 11/06/2024 Telephone [facility] CHC MED & PEDS [address] [place] [address] Gilda De La Torre MD NOV RECALL 11/03/2024 Orders Only GENERIC EXTERNAL DATA DEPARTMENT Provider, Generic External Data 10/29/2024 Orders Only GENERIC EXTERNAL DATA DEPARTMENT Provider, Generic External Data 10/28/2024 Orders Only GENERIC EXTERNAL DATA DEPARTMENT Provider, Generic External Data 10/27/[address] [address] Gilda De La Torre MD Type 2 diabetes mellitus with hyperglycemia, with long-term current use of insulin (CMS/HCC) 10/24/[address] [address] Gilda De La Torre MD FYI 10/19/[address] [address] Gilda De La Torre MD 10/16/[address] [address] Ciera Mendoza RN Home PT Referral 10/15/2024 2:30 PM EDT Office Visit [address] [address] Naya Haywood ANP Stage 3 chronic kidney [...] of both lower extremities 10/15/2024 Results Follow-Up [address] [address] Naya Haywood ANP XR CERVICAL SPINE 3V, XR Shoulder 2+ Views Left 10/15/2024 Travel 10/15/[address] [address] Gilda De La Torre MD 10/12/[address] [address] Gilda De La Torre MD chart prep 10/10/[address] [address] Gilda De La Torre MD 09/26/2024 3:15 PM EDT Office Visit [facility] [address] [facility] [place] [address] Jo Kauffman, KAREN UTI symptoms (Primary Dx); Slow transit constipation; Erythema intertrigo 09/26/2024 Orders Only [facility] MEDICINE [address] [place] [address] Jo Kauffman FNP 09/26/2024 Travel 09/24/2024 Telephone [facility] [address] [facility] [place] [address] Toya Kyle, PharmD Results 09/24/2024 Travel 09/19/2024 2:00 PM EDT Office Visit [facility] MED[facility]INE [address] [facility] [place] [address] Gilda De La Torre MD Grief (Primary [...] lobe dementia (CMS/HCC) 09/19/2024 Travel 09/17/2024 Telephone [facility] MEDICINE [address] [place] [address] Gilda De La Torre MD Chart Prep 09/17/2024 Refill [facility] MEDICINE [address] [facility], [place] [phone] Hetal Connolly MD Chronic pain of right knee 09/17/2024 Refill [facility] MEDICINE [address] [place], [place] [phone] Gilda De La Torre MD Type 2 diabetes mellitus with other specified complication, with long-term current use of insulin (CMS/HCC); Chronic pain of right knee 09/15/2024 Refill [facility] MEDICINE [address] [place] [address] Toya Kyle, PharmElliott Type 2 diabetes mellitus with hyperglycemia, with long-term current use of insulin ([facility]) 09/13/2024 Refill [facility] MEDICINE [address] [place] [address] Gilda De La Torre MD Chronic low back pain, unspecified back pain laterality, unspecified whether sciatica present; Low back pain, unspecified 09/12/2024 Telephone [facility] MEDICINE [address] [place] [address] Gilda De La Torre MD 09/07/2024 9:40 AM EDT Office Visit [facility] WALK-IN CENTER [address] [place] [address] Tushar Souza MD Dermatophytosis (Primary Dx) 09/07/2024 Travel 08/23/2024 Refill [facility] MEDICINE [address] [place] [address] Gilda De La Torre MD 08/13/2024 Telephone [facility] MEDICINE [address] [place], [place] [phone] Toya Kyle, RosaD from Last 3 Months Immunizations Immunization Administration [...] your housing situation today? I have [facility] 10/15/[address] you li [...] Description 12/31/2024 1:30 PM EST Office Visit [facility] MEDICINE [address] [place] [address] Gilda De La Torre MD [address] [place] [address] 01/30/2025 11:00 AM EST Office Visit [facility] OPTOMETRY [address] [place] [address] Meme Covington, OD [address] [place] [address] Health Maintenance Due Date Last Done Comments [...] Procedure Name Priority Date/Time Associated Diagnosis Comments US RENAL COMPLETE Routine 11/07/2024 8:2 7 AM EDT MR LUMBAR SPINE WO CONTRAST Routine 11/04/2024 6:07 PM EDT XR KNEE 1-2 VIEWS RIGHT Routine 11/04/2024 1:44 AM EDT URINALYSIS, COMPLETE, WITH REFLEX TO CULTURE Routine 11/03/2024 10:[address] CERVICAL SPINE WO CONTRAST Routine 11/03/2024 8:[address] HEAD WO CONTRAST Routine 11/03/2024 8 :14 PM EDT XR SHOULDER 2+ VIEWS LEFT Routine 11/03/2024 7:44 PM EDT HIGH SENSITIVITY TROPONIN I Routine 11/03/2024 6:39 PM EDT CREATINE KINASE, TOTAL Routine 6:39 PM EDT MAGNESIUM Routine 11/03/2024 6:39 PM EDT COMPREHENSIVE METABOLIC PANEL Routine 11/03/2024 6:39 PM EDT CBC WITH AUTO DIFFERENTIAL Routine 11/03/2024 6:39 [...] hyperglycemia, with long-term current use of insulin ([facility]) POCT GLYCATED HEMOGLOBIN, TOTAL Routine 09/19/2024 2:29 PM EDT Type 2 diabetes mellitus with hyperglycemia, with long-term current use of insulin ([facility]) ALBUMIN, RANDOM URINE W/CREATININE Routine 05/14/2024 3:16 PM EDT LIPID PANEL, STANDARD Routine 05/12/2024 8:02 AM EDT Dyslipidemia PANORAMIC RADIOGRAPHIC IMAGE Routine 04/02/2024 3:00 PM EST PERIODIC ORAL EVALUATION - ESTABLISHED PATIENT Routine 04/02/2024 3:00 PM EST HM MAMMOGRAPHY Routine 03/15/2024 2:11 PM EST from Last 3 Months or Most Recently Relevant to Health Maintenance Results * US Renal Complete (11/07/2024 8:27 AM EDT) Anatomical Region Laterality Modality Kidney Ultrasound 11/07/2024 8:27 AM EDT Narrative 11/07/2024 9:43 AM EDT [address] [address] Ultrasound Report Signed Patient: Celeste Cunha MR#: [id number] : 1955 Acct:[id number] Age/Sex: 69 / F ADM Date: 11/03/24 Loc: [place]: Ezekiel Salinas DO Ordering Physician: Tima Hardy MD Date of Service: 11/07/24 Procedure(s): US renal BI Accession Number(s): [id number] cc: Gilda De La Torre MD; Tima Hardy MD Reason for Exam: follow up hydronephrosis EXAMINATION: US KIDNEY BILATERAL HISTORY: follow up hydronephrosis TECHNIQUE: Real-time grayscale ultrasound imaging of the kidneys was performed and images were reviewed. COMPARISON: Correlation is made with an abdominal ultrasound dated 10/23/2021. Correlation is also made with a lumbar spine MRI dated 11/04/2024. FINDINGS: Right kidney: The right kidney measures 11.0 x 4.0 x 4.8 cm. Renal parenchymal echotexture and thickness are normal. There are no masses. There is mild hydronephrosis. No calculi are identified. Left Kidney: The left kidney measures 9.3 x 4.1 x 4.5 cm. Renal parenchymal echotexture and thickness are normal. There are no masses. There is no hydronephrosis or renal calculi. The urinary bladder is distended. There is bladder wall thickening measuring up to 1.3 cm. US/US renal BI IMPRESSION: Mild right hydronephrosis. Urinary bladder wall thickening measuring up to 1.3 cm. Electronically signed by: Joe Meng MD 11/07/2024 09:40 AM EDT Dictated By: Joe Meng MD Signed By: <Electronically signed by Joe Meng MD in OV> 11/07/2440 DD/ 6 TD/TT: 11/07/24858 Deputy Felony Clerk: Procedure Note Donotuseinterpreter, Image - 11/07/2024 [place] [address] Ultrasound Report Signed Patient: Akiko Cunha#: [id number] : 1955cct:[id number] Age/Sex: 69 / FADM Date: 11/03/24 Loc: [place] [place]-[address]: Ezekiel Salinas DO Ordering Physician: Tima Hardy MD Date of Service: 11/07/24 Procedure(s): US renal BI Accession Number(s): [id number] cc: Gilda De La Torre MD; Tima Hardy MD Reason for Exam: follow up hydronephrosis EXAMINATION: US KIDNEY BILATERAL HISTORY: follow up hydronephrosis TECHNIQUE: Real-time grayscale ultrasound imaging of the kidneys was performed and images were reviewed. COMPARISON: Correlation is made with an abdominal ultrasound dated 10/23/2021. Correlation is also made with a lumbar spine MRI dated 11/04/2024. FINDINGS: Right kidney: The right kidney measures 11.0 x 4.0 x 4.8 cm. Renal parenchymal echotexture and thickness are normal. There are no masses. There is mild hydronephrosis. No calculi are identified. Left Kidney: The left kidney measures 9.3 x 4.1 x 4.5 cm. Renal parenchymal echotexture and thickness are normal. There are no masses. There is no hydronephrosis or renal calculi. The urinary bladder is distended. There is bladder wall thickening measuring up to 1.3 cm. US/US renal BI IMPRESSION: Mild right hydronephrosis. Urinary bladder wall thickening measuring up to 1.3 cm. Electronically signed by: Joe Meng MD 11/07/2024 09:40 AM EDT Dictated By: Joe Meng MD Signed By: <Electronically signed by Joe Meng MD in OV> 11/07/2440 DD/ TD/TT: 11/07/24 0859 Deputy Felony Clerk: [facility] External Provider IMG US PROCEDURES Final Result * MR Lumbar Spine w/o Contrast (11/04/2024 6:07 PM EDT) Anatomical Region Laterality Modality Spine, L-spine Magnetic Resonan ce 11/04/2024 6:07 PM EDT Narrative 11/04/2024 6:09 PM EDT [address] [address] Magnetic Resonance Report Signed Patient: Celeste Cunha MR#: [id number] : 1955 Acct:[id number] Age/Sex: 69 / F ADM Date: 11/03/24 Loc: [facility]: Tima Hardy MD Ordering Physician: Brenda Hummel MD Date of Service: 11/04/24 Procedure(s): MR lumbar spine wo con Accession Number(s): [id number] cc: Gilda De La Torre MD; Brenda Hummel MD Reason for Exam: LE weakness,multiple falls,waking difficulty CLINICAL HISTORY: LE weakness,multiple falls,waking difficulty MR lumbar spine without contrast. COMPARISON: None provided. FINDINGS: Grade 1 anterolisthesis of L4 on L5, degenerative. Vertebral heights are maintained. No evidence of acute vertebral body injury. Modic type 1 degenerative endplate changes at L3-L4. Modic type 2 degenerative endplate changes at L5-S1. The conus terminates at superior endplate of L2 and is otherwise unremarkable. Visualized portions of the sacrum are normal. L5-S1: Loss of disc space height. Anterior marginal osteophytes central posterior disc bulge. Facet joint arthrosis. Severe bilateral neural foraminal narrowing. L4-L5: Desiccation of the disc. Mild posterior disc bulge. Fluid present within the facet joints bilaterally. Mild left neural foraminal narrowing. L3-L4: Anterior marginal osteophytes. Loss of disc space height. Posterior osteophyte. Mild posterior disc bulge. Facet joint arthrosis. Mild bilateral neural foraminal narrowing. Mild spinal canal stenosis at this level. L2-L3: Mild posterior disc bulge. No significant neural foraminal narrowing. Mild spinal canal stenosis at this level. L1-L2: Intervertebral disc is normal in height. No significant disc bulge or central canal stenosis. Partially visualized [id number]-[id number] bilateral hydronephrosis and hydroureter with partially visualized distended urinary bladder. No obstructing calculus identified. IMPRESSION: 1. No evidence of acute injury to the lumbar spine. 2. Facet joint synovitis present at L4-5 bilaterally, left more so than right. 3. Grade 1 anterolisthesis of L4 on L5, degenerative. 4. Mild spinal canal stenosis at L2-3 and L3-4. 5. Moderate to advanced multilevel spondylosis with multilevel neural foraminal narrowing most pronounced at L5-S1. 6. Severe bilateral hydronephrosis and hydroureter with distention of the urinary bladder partially visualized. This document has been electronically signed by: Joey Daley MD on 11/04/2024 18:07:23 Dictated By: Joey Daley MD Signed By: <Electronically signed by Joey Daley MD in OV> 11/04/241807 DD/ 06 TD/TT: 11/04/241806 Deputy Felony Clerk: Procedure Note Donotuseinterpreter, Image - 11/04/2024 [place] [address] Magnetic Resonance Report Signed Patient: Akiko Cunha#: [id number] : 6Acct:[id number] Age/Sex: 69 / FADM Date: 11/03/24 Loc: [facility] C-[address]: Tima Hardy MD Ordering Physician: Brenda Hummel MD Date of Service: 11/04/24 Procedure(s): MR lumbar spine wo con Accession Number(s): [id number] cc: Gilda De La Torre MD; Brenda Hummel MD Reason for Exam: LE weakness,multiple falls,waking difficulty CLINICAL HISTORY: LE weakness,multiple falls,waking difficulty MR lumbar spine without contrast. COMPARISON: None provided. FINDINGS: Grade 1 anterolisthesis of L4 on L5, degenerative. Vertebral heights are maintained. No evidence of acute vertebral body injury. Modic type 1 degenerative endplate changes at L3-L4. Modic type 2 degenerative endplate changes at L5-S1. The conus terminates at superior endplate of L2 and is otherwise unremarkable. Visualized portions of the sacrum are normal. L5-S1: Loss of disc space height. Anterior marginal osteophytes central posterior disc bulge. Facet joint arthrosis. Severe bilateral neural foraminal narrowing. L4-L5: Desiccation of the disc. Mild posterior disc bulge. Fluid present within the facet joints bilaterally. Mild left neural foraminal narrowing. L3-L4: Anterior marginal osteophytes. Loss of disc space height. Posterior osteophyte. Mild posterior disc bulge. Facet joint arthrosis. Mild bilateral neural foraminal narrowing. Mild spinal canal stenosis at this level. L2-L3: Mild posterior disc bulge. No significant neural foraminal narrowing. Mild spinal canal stenosis at this level. L1-L2: Intervertebral disc is normal in height. No significant disc bulge or central canal stenosis. Partially visualized [id number]-[id number] bilateral hydronephrosis and hydroureter with partially visualized distended urinary bladder. No obstructing calculus identified. IMPRESSION: 1. No evidence of acute injury to the lumbar spine. 2. Facet joint synovitis present at L4-5 bilaterally, left more so than right. 3. Grade 1 anterolisthesis of L4 on L5, degenerative. 4. Mild spinal canal stenosis at L2-3 and L3-4. 5. Moderate to advanced multilevel spondylosis with multilevel neural foraminal narrowing most pronounced at L5-S1. 6. Severe bilateral hydronephrosis and hydroureter with distention of the urinary bladder partially visualized. This document has been electronically signed by: Joey Daley MD on 11/04/2024 18:07:23 Dictated By: Joey Daley MD Signed By: <Electronically signed by Joey Daley MD in OV> 11/04/241807 DD/ 06 TD/TT: 11/04/241806 Deputy Felony Clerk: [facility] External Provider IMG MRI PROCEDURES Edited Result - Final * XR Knee 1-2 Views Right (11/04/2024 1:44 AM EDT) Anatomical Region Laterality Modality Lower Extremities, Knee Right [facility] 11/04/2024 1:44 AM EDT Narrative 11/04/2024 1:45 AM EDT [address] [address] XRay Report Signed Patient: Celeste Cunha MR#: [id number] : 1955 Acct:[id number] Age/Sex: 69 / F ADM Date: 11/03/24 Loc: [facility] Attending Dr: Brenda Menjivar MD Ordering Physician: Generic ED Physician Date of Service: 11/04/24 Procedure(s): XR knee RT 2V Accession Number(s): [id number] cc: Gilda De La Torre MD; Generic ED Physician Reason for Exam: unable to put weight on it. CLINICAL HISTORY: unable to put weight on it. 2 view right knee Comparison: CR/SR - XR KNEE 1-2 VIEWS RIGHT - 08/05/23 13:49 EDT Findings: PA and lateral views of the right knee demonstrate normal alignment. There is mild medial joint space narrowing. Healed fracture deformity of the proximal fibula is present. Tibial plateaus are nondepressed. Patella is normally oriented to the femoral condyle. No joint effusion. IMPRESSION: 1. No acute fracture, subluxation, or dislocation. 2. No joint effusion. 3. Healing fibular fracture. This document has been electronically signed by: Shai Mcdaniel III, MD PHD on 11/04/2024 01:44:24 Dictated By: Shai Mcdaniel MD Signed By: <Electronically signed by Shai Mcdaniel MD in OV> 11/04/24144 DD/ 3 TD/TT: 11/04/24143 Deputy Felony Clerk: Procedure Note Donotuseinterpreter, Image - 11/04/2024 [place] [address] XRay Report Signed Patient: Akiko Cunha#: [id number] : 6Acct:[id number] Age/Sex: 69 / FADM Date: 11/03/24 Loc: [facility] Attending Dr: Brenda Menjivar MD Ordering Physician: Generic ED Physician Date of Service: 11/04/24 Procedure(s): XR knee RT 2V Accession Number(s): [id number] cc: Gilda De La Torre MD; Generic ED Physician Reason for Exam: unable to put weight on it. CLINICAL HISTORY: unable to put weight on it. 2 view right knee Comparison: CR/SR - XR KNEE 1-2 VIEWS RIGHT - 08/05/23 13:49 EDT Findings: PA and lateral views of the right knee demonstrate normal alignment. There is mild medial joint space narrowing. Healed fracture deformity of the proximal fibula is present. Tibial plateaus are nondepressed. Patella is normally oriented to the femoral condyle. No joint effusion. IMPRESSION: 1. No acute fracture, subluxation, or dislocation. 2. No joint effusion. 3. Healing fibular fracture. This document has been electronically signed by: Shai Mcdaniel III, MD PHD on 11/04/2024 01:44:24 Dictated By: Shai Mcdaniel MD Signed By: <Electronically signed by Shai Mcdaniel MD in OV> 11/04/24144 DD/ 3 TD/TT: 11/04/24143 Deputy Felony Clerk: [facility] External Provider IMG XR PROCEDURES Edited Result - Final * (ABNORMAL) Urinalysis, Complete, with Reflex to Culture (11/03/2024 10:15 PM EDT) Only the most recent of4 resultswithin the time period is included. Color Urine Yellow [facility] Appearance Urine Clear [facility] PH 6.5 5.0 - 9.0 [facility] Glucose Urine UA Negative Negative mg/dL [facility] Urine Blood Negative Negative [facility] Specific [place] - Urine <=1.005 1.005 - 1.025 [facility] Urine Protein Negative Neg-Trace mg/dL [facility] Urine Ketones Negative Negative mg/dL [facility] Nitrite Urine Negative Negative [facility] Leukocyte Esterase Urine Large (3+)(A) Negative [facility] RBC Urine 0-2 0 - 2 /HPF [facility] Urine WBC 11-20(A) 0 - 5 /HPF [facility] Urine Squamous Epithelial Cell 0-2 0 - 2 /HPF [facility] Urine Bacteria None Seen None Seen [facility] Hyaline Casts, Urine 0-2 0 - 2 /LPF [facility] 11/03/2024 10:1 5 PM EDT 11/03/2024 10:50 PM EDT Narrative [facility] - 11/03/2024 11:06 PM EDT [id number], Clean Catch us Generic External Data Provider LAB URINE ORDERAB LES Final Result [facility] [address] [place] [phone] * CT Cervical Spine w/o Contrast (11/03/2024 8:14 PM EDT) Only the most recent of2 resultswithin the time period is included. Anatomical Region Laterality Modality Spine, C-spine Computed Tomogra phy 11/03/2024 8:14 PM EDT Narrative 11/03/2024 8:16 PM EDT [address] [address] [address] Scan Report Signed Patient: Celeste Cunha MR#: [id number] : 1955 Acct:[id number] Age/Sex: 69 / F ADM Date: 11/03/24 Loc: .ED Attending Dr: Ordering Physician: Starr Calle Date of Service: 11/03/24 Procedure(s): CT cervical spine wo IV con Accession Number(s): [id number] cc: Gilda De La Torre MD; Starr Calle Report Number: [id number]: Total DLP = 315.00 mGy-cm Reason for Exam: fall w/ head strike midline spinous tenderness CLINICAL HISTORY: fall w head strike midline spinous tenderness CT cervical spine without contrast. COMPARISON: CT cervical spine dated 10/28/24 at 09:57 EDT FINDINGS: Mild leftward curvature of the mid cervical spine. Vertebral body heights are maintained. No evidence of acute vertebral body injury. Skull base and intracranial structures appear normal. Calcified plaque present at the carotid bulbs bilaterally. C2-C3: No significant neuroforaminal narrowing or spinal canal stenosis. C3-C4: Anterior marginal osteophytes. C4-C5: Anterior marginal osteophytes. C5-C6: Anterior marginal osteophytes. Loss of disc space height. Posterior disc osteophyte complex. Uncovertebral joint hypertrophy. Ellcpiht-ys-mdeosr bilateral neural foraminal narrowing. C6-C7: Anterior marginal osteophytes. Loss of disc space height. Uncovertebral joint hypertrophy. Mild bilateral neural foraminal narrowing. IMPRESSION: 1. No evidence of acute injury to the cervical spine. This document has been electronically signed by: Joey Daley MD on 11/03/2024 20:14:45 Dictated By: Joey Daley MD Signed By: <Electronically signed by Joey Daley MD in OV> 11/03/242014 DD/ 13 TD/TT: 11/03/242013 Deputy Felony Clerk: Procedure Note Donotuseinterpreter, Image - 11/03/[address] [place] [address] [address] Scan Report Signed Patient: Akiko Cunha#: [id number] : 6Acct:[id number] Age/Sex: 69 / FADM Date: 11/03/24 Loc: HO.ED Attending Dr: Ordering Physician: Starr Calle Date of Service: 11/03/24 Procedure(s): CT cervical spine wo IV con Accession Number(s): [id number] cc: Gilda De La Torre MD; Starr Calle Report Number: [id number]: Total DLP = 315.00 mGy-cm Reason for Exam: fall w/ head strike midline spinous tenderness CLINICAL HISTORY: fall w head strike midline spinous tenderness CT cervical spine without contrast. COMPARISON: CT cervical spine dated 10/28/24 at 09:57 EDT FINDINGS: Mild leftward curvature of the mid cervical spine. Vertebral body heights are maintained. No evidence of acute vertebral body injury. Skull base and intracranial structures appear normal. Calcified plaque present at the carotid bulbs bilaterally. C2-C3: No significant neuroforaminal narrowing or spinal canal stenosis. C3-C4: Anterior marginal osteophytes. C4-C5: Anterior marginal osteophytes. C5-C6: Anterior marginal osteophytes. Loss of disc space height. Posterior disc osteophyte complex. Uncovertebral joint hypertrophy. Arfhmazk-sw-bvocgz bilateral neural foraminal narrowing. C6-C7: Anterior marginal osteophytes. Loss of disc space height. Uncovertebral joint hypertrophy. Mild bilateral neural foraminal narrowing. IMPRESSION: 1. No evidence of acute injury to the cervical spine. This document has been electronically signed by: Joey Daley MD on 11/03/2024 20:14:45 Dictated By: Joey Daley MD Signed By: <Electronically signed by Joey Daley MD in OV> 11/03/242014 DD/ 13 TD/TT: 11/03/242013 Deputy Felony Clerk: [facility] External Provider IMG CT PROCEDURES Edited Result - Final * CT Head w/o Contrast (11/03/2024 8:14 PM EDT) Only the most recent of2 resultswithin the time period is included. Anatomical Region Laterality Modality Head, Neck Computed Tomogra phy 11/03/2024 8:14 PM EDT Narrative 11/03/2024 8:16 PM EDT [place] [address] CT Scan Report Signed Patient: Celeste Cunha MR#: [id number] : 1955 Acct:[id number] Age/Sex: 69 / F ADM Date: 11/03/24 Loc: HO.ED Attending Dr: Ordering Physician: Starr Calle Date of Service: 11/03/24 Procedure(s): CT head/brain wo IV con Accession Number(s): [id number] cc: Gilda De La Torre MD; Starr Calle Report Number: [id number]: Total DLP = 607.00 mGy-cm Reason for Exam: fall w/ head strike CLINICAL HISTORY: fall w head strike CT head without contrast. COMPARISON: CT head dated 10/28/24 at 09:57 EDT FINDINGS: Layering fluid present within the sphenoid sinuses. Mastoid air cells are clear. No calvarial fracture. Atherosclerotic intracranial vasculature. No evidence of mass or mass effect. No intracranial hemorrhage or abnormal extra-axial fluid collection. The ventricles are proportional with the degree of mild global cerebral volume loss without evidence of hydrocephalus. Basilar cisterns are patent. There are periventricular areas of low attenuation compatible with mild white matter small vessel disease. Posterior fossa appears unremarkable. IMPRESSION: 1. No acute intracranial findings. This document has been electronically signed by: Joey Daley MD on 11/03/2024 20:14:30 Dictated By: Joey Daley MD Signed By: <Electronically signed by Joey Daley MD in OV> 11/03/242014 DD/ 13 TD/TT: 11/03/242013 Deputy Felony Clerk: Procedure Note Donotuseinterpreter, Image - 11/03/[address] [place] [address] [address] Scan Report Signed Patient: Akiko Cunha#: [id number] : 1955cct:[id number] Age/Sex: 69 / FADM Date: 11/03/24 Loc: HO.ED Attending Dr: Ordering Physician: Starr Calle Date of Service: 11/03/24 Procedure(s): CT head/brain wo IV con Accession Number(s): [id number] cc: Gilda De La Torre MD; Starr Calle Report Number: [id number]: Total DLP = 607.00 mGy-cm Reason for Exam: fall w/ head strike CLINICAL HISTORY: fall w head strike CT head without contrast. COMPARISON: CT head dated 10/28/24 at 09:57 EDT FINDINGS: Layering fluid present within the sphenoid sinuses. Mastoid air cells are clear. No calvarial fracture. Atherosclerotic intracranial vasculature. No evidence of mass or mass effect. No intracranial hemorrhage or abnormal extra-axial fluid collection. The ventricles are proportional with the degree of mild global cerebral volume loss without evidence of hydrocephalus. Basilar cisterns are patent. There are periventricular areas of low attenuation compatible with mild white matter small vessel disease. Posterior fossa appears unremarkable. IMPRESSION: 1. No acute intracranial findings. This document has been electronically signed by: Joey Daley MD on 11/03/2024 20:14:30 Dictated By: Joey Daley MD Signed By: <Electronically signed by Joey Daley MD in OV> 11/03/242014 DD/ 13 TD/TT: 11/03/242013 Deputy Felony Clerk: [facility] External Provider IMG CT PROCEDURES Edited Result - Final * XR Shoulder 2+ Views Left (11/03/2024 7:44 PM EDT) Only the most recent of2 resultswithin the time period is included. Anatomical Region Laterality Modality Upper Extremities, Shoulder Left Radi ographic Imaging 11/03/2024 7:44 PM EDT Narrative 11/03/2024 7:45 PM EDT [place] [address] XRay Report Signed Patient: Celeste Cunha MR#: [id number] : 1955 Acct:[id number] Age/Sex: 69 / F ADM Date: 11/03/24 Loc: HO.ED Attending Dr: Ordering Physician: Starr Calle Date of Service: 11/03/24 Procedure(s): XR shoulder LT min 2V Accession Number(s): [id number] cc: Gilda De La Torre MD; Starr Calle Reason for Exam: fall L shoulder pain dec movement CLINICAL HISTORY: fall L shoulder pain dec movement --- Additional Notes or Special Instructions: Patient collared @1852 Three views of the left shoulder. COMPARISON: None provided. FINDINGS: Proximal left humerus, the left scapula, and the left clavicle appear intact. Humeral head is appropriately seated in the glenoid. Moderate hypertrophy of the left acromioclavicular joint. Visualized portions of the left lung are clear. Atherosclerotic thoracic aorta. IMPRESSION: 1. No radiographic evidence of acute injury to the left shoulder. 2. Moderate acromioclavicular joint degenerative changes. This document has been electronically signed by: Joey Daley MD on 11/03/2024 19:44:09 Dictated By: Joey Daley MD Signed By: <Electronically signed by Joey Daley MD in OV> 11/03/241943 DD/ 43 TD/TT: 11/03/241943 Deputy Felony Clerk: Procedure Note Donoteladiainterpreter, Image - 11/03/[address] [address] XRay Report Signed Patient: Akiko Cunha#: [id number] : 1955cct:[id number] Age/Sex: 69 / FADM Date: 11/03/24 Loc: HO.ED Attending Dr: Ordering Physician: Starr Calle Date of Service: 11/03/24 Procedure(s): XR shoulder LT min 2V Accession Number(s): [id number] cc: Gilda De La Torre MD; Starr Calle Reason for Exam: fall L shoulder pain dec movement CLINICAL HISTORY: fall L shoulder pain dec movement --- Additional Notesor Special Instructions: Patient collared @1852 Three views of the left shoulder. COMPARISON: None provided. FINDINGS: Proximal left humerus, the left scapula, and the left clavicle appear intact. Humeral head is appropriately seated in the glenoid. Moderate hypertrophy of the left acromioclavicular joint. Visualized portions of the left lung are clear. Atherosclerotic thoracic aorta. IMPRESSION: 1. No radiographic evidence of acute injury to the left shoulder. 2. Moderate acromioclavicular joint degenerative changes. This document has been electronically signed by: Joey Daley MD on 11/03/2024 19:44:09 Dictated By: Joey Daley MD Signed By: <Electronically signed by Joey Daley MD in OV> 11/03/241943 DD/ 43 TD/TT: 11/03/241943 Deputy Felony Clerk: [facility] External Provider IMG XR PROCEDURES Edited Result - Final * High Sensitivity Troponin I (11/03/2024 6:39 PM EDT) Only the most recent of2 resultswithin the time period is included. [facility] TROPONIN I HIGH SENSITIVITY 4.3 <3.5 - 17.0 ng/L [facility] Comment:The Lacy high sens itivity Troponin-I results should beused in conjunction with other diagnostic information suchas ECG, clinical observations and information, and patientsymptoms to aid in the diagnosis of MA. 11/03/2024 6:39 PM EDT 11/03/2024 6:42 PM EDT us Generic External Data Provider LAB BLOOD ORDERAB LES Final Result [facility] [address] [place] [phone] * (ABNORMAL) CBC auto differential (11/03/2024 6:39 PM EDT) Only the most recent of2 resultswithin the time period is included. [facility] White Blood Count 9.1 4.8 - 10.8 X10*3/uL [facility] Red Blood Count 3.80(L) 4.20 - 5.50 X10*6/uL [facility] Hemoglobin 10.3(L) 12.0 - 16.0 g/dl [facility] Hematocrit 30.7(L) 37.0 - 47.0 % [facility] Mean Corpuscular Volume 80.8 80.0 - 98.0 fL [facility] Mean Corpuscular Hemoglobin 27.1 27.0 - 33.0 pg [facility] Mean Corpuscular HGB Conc 33.6 31.0 - 35.0 g/dl [facility] Red Cell Distribution Width 14.0 11.0 - 16.0 % [facility] Platelet Count 205 160 - 400 X10*3/uL [facility] Mean Platelet Volume 11.7 9.4 - 12.3 fL [facility] Neutrophils Percent Auto 55.7 45 - 73 % [facility] Imm Gran Pct Auto 0.2 0.0 - 0.4 % [facility] Lymphocytes Percent Auto 33.3 20 - 40 % [facility] Monocytes Percent Auto 8.4 2 - 11 % [facility] Eosinophils Percent Auto 2.1 0 - 4 % [facility] Basophils Percent Auto 0.3 0 - 2 % [facility] NRBC Pct Auto 0.0 0.0 - 0.2 /100WBC [facility] Neutrophils Absolute Auto 5.0 2.0 - 8.3 x10*3/uL [facility] Imm Gran Abs Auto 0.02 0.00 - 0.03 X10*3/uL [facility] Lymphocytes Absolute Auto 3.0 1.2 - 4.9 X10*3/uL [facility] Monocytes Absolute Auto 0.8 0.1 - 1.2 X10*3/uL [facility] Eosinophils Absolute Auto 0.2 0.0 - 0.4 X10*3/uL [facility] Basophils Absolute Auto 0.0 0.0 - 0.2 X10*3/uL [facility] NRBC Abs Auto 0.000 0.0 - 0.012 X10*3/uL [facility] 11/03/2024 6:39 PM EDT 11/03/2024 6:42 PM EDT us Generic External Data Provider LAB BLOOD ORDERAB LES Final Result Performing Organization Address City/[facility]/ZIP Co de Phone Number [facility] [address] [place] [phone] * Magnesium (11/03/2024 6:39 PM EDT) Magnesium 1.6 1.6 - 2.6 mg/dL [facility] 11/03/2024 6:39 PM EDT 11/03/2024 6:42 PM EDT us Generic External Data Provider LAB BLOOD ORDERAB LES Final Result Performing Organization Address City/[facility]/ZIP Co de Phone Number [facility] [address] [place] [address] [phone] * (ABNORMAL) Creatine Kinase, Total (11/03/2024 6:39 PM EDT) Only the most recent of2 resultswithin the time period is included. Pathologist [facility] Creatine Kinase Total 356(H) 26 - 140 U/L [facility] 11/03/2024 6:39 PM EDT 11/03/2024 6:42 PM EDT us Generic External Data Provider LAB BLOOD ORDERAB LES Final Result [facility] [address] [place] [address] [phone] * (ABNORMAL) Comprehensive Metabolic Panel (11/03/2024 6:39 PM EDT) Only the most recent of2 resultswithin the time period is included. Pathologist [facility] Sodium 133(L) 135 - 145 mmol/L [facility] Potassium 3.8 3.3 - 5.1 mmol/L [facility] Chloride 100 96 - 108 mmol/L [facility] Carbon Dioxide 24 22 - 29 mmol/L [facility] Anion Gap 13 12 - 20 [facility] Urea Nitrogen (BUN) 21(H) 9 - 16 mg/dL [facility] Creatinine, Serum 0.89 0.5 - 1.4 mg/dL [facility] Creatinine Clr Calc Pharmacy 47.8 [facility] Comment:Provided height and weight: 157.48 cm,58.967 kg.eGFR (calculated from the MDRD study equation) and eCrCl(calculated from the Cockcroft-Gault equation) are based ondifferent parameters and may not yield comparable results.If eCrCl result is absurd, please check patient'sheight/weight. Estimated Glomerular Filt Rate >60 [facility] Comment:Chronic Kidney Disea se: Estimated GFR < 60 mL/min/1.86s5Agidpa Kidney Disease: Estimated GFR < 15 mL/min/1.73m2 Glucose 219(H) 60 - 115 mg/dL [facility] Calcium 9.3 8.4 - 10.2 mg/dL [facility] Bilirubin, Total 0.2 0.0 - 1.0 mg/dL [facility] Aspartate Amino Transferase 30 5 - 31 U/L [facility] Alanine Aminotransferase 24 0 - 31 U/L [facility] Total Protein 7.2 6.5 - 8.0 g/dL [facility] Albumin Level 4.1 3.5 - 5.0 g/dL [facility] Alkaline Phosphatase 85 39 - 117 U/L [facility] 11/03/2024 6:39 PM EDT 11/03/2024 6:42 PM EDT Generic External Data Provider LAB BLOOD ORDERAB LES Final Result Performing Organization Address City/[facility]/ZIP Co de Phone Number [facility] [address] [place] [phone] * (ABNORMAL) Glucose, Whole Blood (10/29/2024 11:08 AM EDT) Only the most recent of3 resultswithin the time period is included. Glucose, Whole Blood 208(H) 60 - 115 mg/dL [facility] Comment:METER #: [id number] 10/29/2024 11:0 8 AM EDT 10/29/2024 11:10 AM EDT us Generic External Data Provider LAB BLOOD ORDERAB LES Final Result Performing Organization Address [facility]/ZIP Co de Phone Number [facility] [address] [place] [phone] [phone] * XR Pelvis 1-2 Views (10/28/2024 12:09 PM EDT) Anatomical Region Laterality Modality Body, Pelvis Radiographic Ailyn ging 10/28/2024 12:0 9 PM EDT Narrative 10/28/2024 12:10 PM EDT [address] [address] XRay Report Signed Patient: Celeste Cunha MR#: [id number] : 1955 Acct:[id number] Age/Sex: 69 / F ADM Date: 10/28/24 Loc: HO.ED Attending Dr: Ordering Physician: Chris Galvez Date of Service: 10/28/24 Procedure(s): XR pelvis 1-2V Accession Number(s): [id number] cc: Gilda De La Torre MD; Chris [...] Huston MD in OV> 10/28/24 1210 DD/ 1209 TD/TT: 10/28/24 1209 Deputy Felony Clerk: Procedure Note Donotuseinterpreter, Image - 10/28/[address] [address] XRay Report Signed Patient: Cecilio CunhaR#: [id number] : 1955cct:[id number] Age/Sex: 69 / FADM Date: 10/28/24 Loc: HO.ED Attending Dr: Ordering Physician: Chris Galvez Date of Service: 10/28/24 Procedure(s): XR pelvis 1-2V Accession Number(s): [id number] cc: Gilda De La Torre MD; Chris [...] Huston MD in OV> 10/28/24 1210 DD/ TD/TT: 10/28/241208 Deputy Felony Clerk: [facility] External Provider IMG XR PROCEDURES Final Result * XR Chest 1 View (10/28/2024 12:08 PM EDT) Anatomical Region Laterality Modality Chest Radiographic Ailyn ging 10/28/2024 12:0 8 PM EDT Narrative 10/28/2024 12:09 PM EDT [place] [address] XRay Report Signed Patient: Celeste Cunha MR#: [id number] : 1955 Acct:[id number] Age/Sex: 69 / F ADM Date: 10/28/24 Loc: .ED Attending Dr: Ordering Physician: Chris Galvez Date of Service: 10/28/24 Procedure(s): XR chest 1V Accession Number(s): [id number] cc: Gilda De La Torre MD; Chris Galvez CLINICAL HISTORY: trauma --- Additional Notes or Special Instructions: can wait for c spine to be cleared 1 view chest x-ray. Comparison: CR/ID/SR - XR CHEST 2 VIEWS - 10/14/23 [...] in OV> 10/28/24 1209 DD/ 1208 TD/TT: 10/28/241207 Deputy Felony Clerk: Procedure Note Donotuseinterpreter, Image - 10/28/2024 [facility] [address] [place] [address] XRay Report Signed Patient: Cecilio CunhaR#: [id number] : 1955cct:[id number] Age/Sex: 69 / FADM Date: 10/28/24 Loc: HO.ED Attending Dr: Ordering Physician: Chris Galvez Date of Service: 10/28/24 Procedure(s): XR chest 1V Accession Number(s): [id number] cc: Gilda De La Torre MD; Chris Galvez CLINICAL HISTORY: trauma --- Additional Notes or Special Instructions: canwait for c spine to be cleared 1 view chest x-ray. Comparison: CR/ID/SR - XR CHEST 2 VIEWS - 10/14/23 [...] 10/28/24 1209 DD/ 1208 TD/TT: 10/28/24 1208 Deputy Felony Clerk: [facility] External Provider IMG XR PROCEDURES Final Result * XR CERVICAL SPINE 3V (10/15/2024 3:18 PM EDT) Anatomical Region Laterality Modality Abdomen Radiographic Ailyn ging 10/15/2024 3:18 PM EDT Narrative 10/15/2024 4:28 PM EDT [facility] [address] [place] [address] XRay Report Signed Patient: Celeste Cunha MR#: [id number] : 1955 Acct:[id number] Age/Sex: 69 / F ADM Date: 10/15/24 Loc: HO.HHCX Attending Dr: Naya Haywood [employer] COUNTER SAL[employer] PERSON Ordering Physician: NAYA HAYWOOD NP Date of Service: 10/15/24 Procedure(s): XR cervical spine 3V Accession Number(s): [id number] cc: Gilda De La Torre MD; NAYA [...] Tramaine Purdy MD 10/15/2024 04:26 PM EDT Dictated By: Tramaine Purdy MD Signed By: <Electronically signed by Tramaine Purdy MD in OV> 10/15/24 1626 DD/ 1518 TD/TT: 10/15/24 1530 Deputy Felony Clerk: Procedure Note Donotuseinterpreter, Image - 10/15/[address] [address] XRay Report Signed Patient: Akiko Cunha#: [id number] : 1955cct:[id number] Age/Sex: 69 / FADM Date: 10/15/24 Loc: CYNTHIA.HHDanielitoX Attending Dr: Naya Haywood NP Ordering Physician: NAYA HAYWOOD NP Date of Service: 10/15/24 Procedure(s): XR cervical spine 3V Accession Number(s): [id number] cc: Gilda De La Torre MD; NAYA [...] 10/15/24 1626 DD/ 1518 TD/TT: 10/15/24 1530 Deputy Felony Clerk: us Naya Haywood ANP IMG XR PROCEDURES Final Result * Culture, Urine, Routine (09/26/2024 6:32 PM EDT) Urine Urine specimen obtained by clean catch procedure / Unknown 09/26/2024 6:32 PM EDT 09/26/2024 6:32 PM EDT Comment:[facility] Narrative [facility] - 09/28/2024 8:52 AM EDT Urine Culture Report Result Urine Culture 50,000 to 100,000 cfu/ml Urine Culture Mixed bacterial himanshu characteristic of Urine Culture urogenital contamination. Specimen Source: Urine clean catch us Jo Kauffman [facility] MICROBIOLOGY - GENERAL ORD ERABLES Final Result [facility] [address] [place] [phone] * (ABNORMAL) POCT Urinalysis (09/26/2024 3:49 [...] * POCT Glucose (09/19/2024 2:31 PM EDT) Pathologist [facility] Glucose Blood, POC 70 60 - 200 [...] Expiration Date Blood 09/19/2024 2:29 PM EDT Gilda Maynard MD POINT OF CARE TEST EN TER/EDIT ORDERABLES Final Result * (ABNORMAL) Albumin, Random Urine W/Creatinine (05/14/2024 3:16 PM EDT) Creatinine, Urine 33.29 mg/dL [facility] Microalbumin Urine 46.0 mg/L [facility] Microalbum Creatinine Ratio Ur 138.1(H) <30 ug/mg cr [facility] Comment:Albumin/Creatinine R at Reference Ranges: Normal: < 30 ug/mg creatinine Microalbuminuria: 30 - 300 ug/mg creatinineClinical Albuminuria: > 300 ug/mg creatinine 05/14/2024 3:16 PM EDT 05/14/2024 4:40 PM EDT us Gilda Maynard MD LAB URINE ORDERABLES Final Result [facility] [address] [place] [phone] * Lipid Panel, Standard (05/12/2024 8:02 AM EDT) Triglycerides 59 <150 mg/dL [facility] Comment:Desirable Triglyceri de: less than 150 mg/dLBorderline High Triglyceride 150-199 mg/dLHigh Triglyceride: 200-499 mg/dLVery High Triglyceride: greater than or equal to 5OO mg/dL Cholesterol 135 <200 mg/dL [facility] Comment:Desirable Cholestero l: less than 200 mg/dLBorderline High Cholesterol: 200-239 mg/dLHigh Cholesterol: greater than 239 mg/dL LDL Cholesterol Calculated 68 <100 mg/dL [facility] Comment:Desirable LDL: less than 100 mg/dLNear Optimal/Above Optimal LDL: 110- 129 mg/dLBorderline High LDL: 130-159 mg/dLHigh LDL: 160-189 mg/dLVery High LDL: greater than or equal to 190 mg/dL HDL Cholesterol 56 >40 mg/dL [facility] Comment:Desirable HDL: great er than 40 mg/dL Note: This HDL assay may give artificially low results in patients with liver disease. Blood Venous blood specimen / Unknown 05/12/2024 8:02 AM EDT 05/12/2024 8:02 AM EDT us Gilda Maynard MD LAB BLOOD ORDERABLES Final Result [facility] [address] [place] [phone] * Mammography (03/15/2024 2:11 PM EST) Anatomical Region Laterality Modality Other us Historical Provider HEALTH MAINTENANCE Final Result from Last 3 Months or Most Recently Relevant to Health Maintenance Insurance * Guarantor: Celeste Cunha Account Type Relation to Patient Date of Phone Billing Address Personal/Family Self [address] [place] [address] [facility] [employer] (O D-SNP) * Guarantor: Celeste Cunha Account Type Relation to Patient Date of Phone Billing Address Dental Self [address] [place] [address] [facility] Care Teams Car Inspector Relationship Specialty Start Date End Date Gilda De La Torre MD [address] [place] [address] PCP - General Family Medicine 10/25/21 Toya Kyle, RosaD [address] [place] [address] Pharmacist Internal Medicine 11/06/23
--- OUTSIDE RECORDS SUMMARY | 2024-11-11 11:56 | XMS_ITS | Encounter Summary ---
Author Organization [employer] Address [address] [facility] [address] [place] [address] Care Team Providers Care National Account Representative Name Role Phone Gilda De La Torre MD Primary Care Provide r Toya Kyle PharmD Unavailable [phone] Reason for Visit * Reason Comments Med Refill Encounter Details Date Type Department Care Team (Late Contact Info) Description 10/08/2022 Refill [facility] [address] [place], [place] [phone] Gilda De La Torre MD [address] [place], [place] [phone] Social History Tobacco Use Types Packs/Day Years [...] Department Care Team (Late Contact Info) Description 12/31/2024 1:30 PM EST Office Visit [facility] [address] [place], [place] [phone] Gilda De La Torre MD [address] [place] [address] 01/30/2025 11:00 AM EST Office Visit [facility] [address] [place], [place] [phone] Adria, Meme, OD [address] [place] [address] documented as of this encounter Visit Diagnoses Not on filedocumented in this encounter Additional Health Concerns Assessment Noted Time PHQ-9 Depression Total Score: 14 023 10:32 AM EDT documented as of this encounter Care Teams National Account Representative Relationship Specialty Start Date End Date Gilda De La Torre MD [address] [place] [phone] PCP - General Family Medicine 10/25/21 Toya Kyle, RosaD [address] [place] [address] [phone] Pharmacist Internal Medicine 11/06/23 documented as of this encounter
--- OUTSIDE RECORDS SUMMARY | 2024-11-11 11:56 | XMS_ITS | Encounter Summary ---
Author Organization [employer] Address [address] [place] [address] Care Team Providers Care Supervisor [employer]plicating [employer] Name Role Phone Gilda De La Torre MD Primary Care Provide r Toya Kyle PharmD Unavailable [phone] Encounter Details Date Type Department Care Team (Late st Contact Info) Description 03/24/2024 Orders Only [facility] [address] [place], [place] [phone] Provider, MD Jose J Social History Tobacco [...] Description 12/31/2024 1:30 PM EST Office Visit [facility] [address] [place] [address] Gilda De La Torre MD [address] [place] [address] 01/30/2025 11:00 AM EST Office Visit [facility] [address] [place] [address] Meme Covington, OD [address] [place] [address] documented as of this encounter Procedures Procedure [...] as of this encounter Care Teams Supervisor Microfilm Duplicating Unit Relationship Specialty Start Date End Date Gilda De La Torre MD [address] [place] [address] PCP - General Family Medicine 10/25/21 Toya Kyle, Fay [address] [place] [address] Pharmacist Internal Medicine 11/06/23 documented as of this encounter
--- OUTSIDE RECORDS SUMMARY | 2024-11-11 11:56 | XMS_ITS | Encounter Summary ---
Author Organization [employer] Address [address] [facility] [address] [place] [address] Care Team Providers Care Occupational Health Nurse Manager Name Role Phone Gilda De La Torre MD Primary Care Provide r Toya Kyle PharmD Unavailable [phone] Reason for Visit * Reason Onset Date Comments PUBLISHING EDITOR Hours and VNA Services 04/14/2023 Encounter Details Date Type Department Care Team (Late st Contact Info) Description 04/14/2023 Telephone [facility] MEDICINE [address] [place], [place] [phone] Gilda De La Torre MD [address] [place], [place] [phone] PUBLISHING EDITOR Hours and VNA Services Social History Tobacco [...] - 05/19/2023 1:29 PM EDT Tc from [facility] with ICP requesting status of increase on PUBLISHING EDITOR hours request. Please contact at [phone] * Telephone Encounter - Leyla Peacock - 05/04/2023 3:56 PM EST Tc from [facility] ICP requesting status on PUBLISHING EDITOR hours and life alert request. Please contact at [phone] * Telephone Encounter - Joy Winn - 04/14/2023 4:32 PM EST Tc from [facility]ika with [facility] stating that pt is requiring more PUBLISHING EDITOR Hours and VNA Orders. Please contact Wendy @ [phone] documented in this encounter Plan of Treatment Upcoming Encounters Date Type Department Care Team (Late st Contact Info) Description 12/31/2024 1:30 PM EST Office Visit [facility] MED[facility]INE [address] [place] [phone] Gilda De La Torre MD [address] [place] [address] 01/30/2025 11:00 AM EST Office Visit [facility] OPTOMETRY [address] [place], [place] [phone] Meme Covington, OD [address] [place] [address] documented as of this encounter Visit Diagnoses Not on filedocumented in this encounter Additional Health Concerns Assessment Noted Time PHQ-9 Depression Total Score: 14 023 10:32 AM EDT documented as of this encounter Care Teams Occupational Health Nurse Manager Relationship Specialty Start Date End Date Gilda De La Torre MD [address] [place] [address] PCP - General Family Medicine 10/25/21 Toya Kyle, RosaD [address] [place], [place] [phone] Pharmacist Internal Medicine 11/06/23 documented as of this encounter
--- OUTSIDE RECORDS SUMMARY | 2024-11-11 11:57 | XMS_ITS | Encounter Summary ---
Author Organization [employer] Address [address] [facility] [address] [place] [address] Care Team Providers Care Desktop Support Consultant Name Role Phone Gilda De La Torre MD Primary Care Provide r Toya Kyle PharmD Unavailable [phone] Encounter Details Date Type Department Care Team (Late st Contact Info) Description 11/02/2023 Telephone [facility] MED[facility]INE [address] [place] [address] Toya Kyle, PharmD [address] [place] [address] Social History Tobacco Use Types Packs/Day Years [...] for this patient to enroll care in [facility] - Diabetes clinic. Please send at your earliest convenience. documented in this encounter Plan of Treatment Upcoming Encounters Date Type Department Care Team (Late st Contact Info) Description 12/31/2024 1:30 PM EST Office Visit [facility] [address] [place], [place] [phone] Gilda De La Torre MD [address] [place] [address] 01/30/2025 11:00 AM EST Office Visit [facility] OPTOMETRY [address] [place] [address] Meme Covington, OD [address] [place] [address] documented as of this encounter Visit Diagnoses Diagnosis Type 2 diabetes mellitus with hyperglycemia, with long-term current use of insulin ([facility])- Primary documented in this encounter Additional Health Concerns Assessment Noted Time PHQ-9 Depression Total Score: 0 09/23/19 24 3:00 PM EDT documented as of this encounter Care Teams Desktop Support Consultant Relationship Specialty Start Date End Date Gilda De La Torre MD [address] [place] [address] PCP - General Family Medicine 10/25/21 Toya Kyle PharmD [address] [place] [address] Pharmacist Internal Medicine 11/06/23 documented as of this encounter
--- OUTSIDE RECORDS SUMMARY | 2024-11-11 11:57 | XMS_ITS | Encounter Summary ---
Author Organization [employer] Address [address] [place] [address] Care Team Providers Care Clay Burner Name Role Phone Gilda De La Torre MD Primary Care Provide r Toya Kyle PharmD Unavailable [phone] Reason for Visit * Reason Comments Med Refill Encounter Details Date Type Department Care Team (Late st Contact Info) Description 03/08/2024 Refill [facility] [address] [place], [place] [phone] Gilda De La Torre MD [address] [place], [place] [phone] Primary hypertension Social History Tobacco Use Types [...] Description 12/31/2024 1:30 PM EST Office Visit [facility] MED[facility]INE [address] [place] [address] Gilda De La Torre MD [address] [place] [address] 01/30/2025 11:00 AM EST Office Visit [facility] OPTOMETRY [address] [place] [address] Meme Covington, DONNELL [address] [place] [address] documented as of this encounter Visit Diagnoses Diagnosis Primary hypertension Unspecified essential hypertension documented in this encounter Additional Health Concerns Assessment Noted Time PHQ-9 Depression Total Score: 0 09/23/19 3:00 PM EDT documented as of this encounter Care Teams Clay Burner Relationship Specialty Start Date End Date Gilda De La Torre MD [address] [place] [address] PCP - General Family Medicine 10/25/21 Toya Kyle, RosaD [address] [place] [address] Pharmacist Internal Medicine 11/06/23 documented as of this encounter
[2024-11-11 12:06] LABS: MANUAL DIFF FLAG NO
[2024-11-11 12:10] LABS: Hematocrit 34.3 % (37.0-47.0); Hemoglobin 11.1 g/dl (12.0-16.0); Imm Gran Abs Auto 0.03 X10*3/uL (0.00-0.03); Imm Gran Pct Auto 0.3 % (0.0-0.4); Lymphocytes Absolute Auto 3.2 X10*3/uL (1.2-4.9); Mean Corpuscular HGB Conc 32.4 g/dl (31.0-35.0); Mean Corpuscular Hemoglobin 26.9 pg (27.0-33.0); Mean Corpuscular Volume 83.3 fL (80.0-98.0); NRBC Abs Auto 0.000 X10*3/uL (0.0-0.012); NRBC Pct Auto 0.0 /100WBC (0.0-0.2); Platelet Count 235 X10*3/uL (160-400); Red Blood Count 4.12 X10*6/uL (4.20-5.50); White Blood Count 11.1 X10*3/uL (4.8-10.8)
[2024-11-11 12:24] LABS: Alanine Aminotransferase 60 U/L (0-31); Albumin Level 4.5 g/dL (3.5-5.0); Alkaline Phosphatase 98 U/L (39-117); Anion Gap 12 (12-20); Aspartate Amino Transferase 58 U/L (5-31); Blood Urea Nitrogen 25 mg/dL (9-16); Calcium 10.2 mg/dL (8.4-10.2); Carbon Dioxide 26 mmol/L (22-29); Chloride 98 mmol/L (96-108); Creatinine Clr Calc Pharmacy 40.1; Estimated Glomerular Filt Rate 48; Magnesium 2.2 mg/dL (1.6-2.6); Potassium 5.4 mmol/L (3.3-5.1); Sodium 131 mmol/L (135-145); Total Protein 8.1 g/dL (6.5-8.0)
[2024-11-11 12:36] LABS: COVID-19 Test Negative (Negative); IDNOW Serial# 55D5AD1C
[2024-11-11 12:37] LABS: IDNOW Serial# 58CA691E; Influenza B2 Negative (Negative)
[2024-11-11 17:23] LABS: Appearance Urine Clear; Glucose Urine UA 100 mg/dL (Negative); PH 6.5 (5.0-9.0); Specific Gravity - Urine 1.010 (1.005-1.025)
--- NOTE | 2024-11-11 18:57 | PHA.MEDREC ---
Addendum entered by Cliff France PharmD 11/12/24 09:10: PT better able to converse today, she states her meds haven't changed and recognized most of them for verba confirmation. States she takes Trulicity on Tuesday and took it last week. Original Note: Pharmacy Consult ? Medication Reconciliation Pharmacy has completed the medication reconciliation. UTILIZED LIST FROM 11/08 DISCHARGE. WILL FOLLOW UP IN THE MORNING TO ENSURE ACCURACY. PT UNABLE TO CLARIFY MEDS BUT HAS VISITING NURSE WE CAN CONTACT TOMORROW.
[2024-11-12] VITALS (7 sets, daily range): BP systolic 122–152; BP diastolic 49–88; PULSE 64–103; RESP 13–20; TEMP 36.4–36.8; O2SAT 94–99
[2024-11-12 06:31] LABS: Glucose, Whole Blood 186 mg/dL (60-115)
--- NOTE | 2024-11-12 11:28 | PC.NURSE ---
Patient medicated for left sided neck stiffness, repositioned in bed and hot pack applied.
--- NOTE | 2024-11-12 11:54 | MHC.CM.ED ---
Received case management consult overnight. Patient came to the ER after a fall. Patient was d/c's from [facility] on 11/08. STR was recommended at that time. 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 Patient fell while at home and is now agreeable to STR. Physical therapy eval completed. Short term rehab is still recommended. Met with patient in regards to discharge planning. Patient is able to speak and understand some Cambodian, but agreeable to customer acquisition specialist assisting. Patient lives alone, uses a walker for mobility and confirms she is active with VNA. Patient verifies she is agreeable to STR. Patient has been to [facility] in the past and is requesting to return. Referral made via [facility]. Continue to monitor for d/c needs.
--- NOTE | 2024-11-12 13:21 | PC.NURSE ---
Plan of care to be sent to [facility] short term [facility], awaiting insurance
[2024-11-13 06:15] VITALS: BP 116/53; PULSE 76; RESP 18; TEMP 36.8; O2SAT 96
[2024-11-13 07:33] LABS: Glucose, Whole Blood 264 mg/dL (60-115)
[2024-11-13 09:38] VITALS: BP 113/52
[2024-11-13 09:39] VITALS: BP 113/52; PULSE 77
[2024-11-13] MEDS: Aspirin Enteric Coated 81 MG TABLET.DR PO (09:39)
--- NOTE | 2024-11-13 10:12 | MHC.CM.ED ---
Insurance auth has been obtained by [facility]. Patient can leave at 1pm. Jadon FU booked. Med [facility] with chart. Patient, son Page Rodríguez RN and Stephanie DRAPER aware. [facility] will provide facility with Trulicity. Continue to monitor for d/c needs.
[2024-11-13 11:57] LABS: Glucose, Whole Blood 343 mg/dL (60-115)
--- NOTE | 2024-11-13 12:19 | PC.NURSE ---
Late Charting d/t patient care: Assumed care of pt at 0700. Pt resting in bed quietly, a/ox3 respirations even and unlabored, no increased wob/sob noted, appears in no distress. Pt repositioned in bed, sitting upright eating breakfast. Denies cp/sob/n/v/abdominal pain. This RN reached out to provider to order home medications d/t med rec completed. Pharmacy notified of medication verification/missing meds. Pt up oob one assist with walker and operations research scientist to bathroom. Pt very unsteady gait- shuffling/tipping forwards and backwards. Pt had small BM, washed/cleaned up, changed into new hospital attire. Placed back into bed and repositioned. Pt updated on plan to d/c to [facility]) today @1pm. Call vee within reach, all needs met at this time.
[2024-11-13 13:41] VITALS: BP 113/52; PULSE 77; RESP 18; TEMP 36.8; O2SAT 96
[2024-11-13 13:43] LABS: Glucose, Whole Blood 327 mg/dL (60-115)
== END 2024-11-13 13:43 ==
PROVIDERS: Registered Nurse Emergency; Emergency Provider Emergency Medicine; PCP Internal Medicine
DX: R51.9 Headache, unspecified (principal); M54.2 Cervicalgia; E87.5 Hyperkalemia; N18.30 Chronic kidney disease, stage 3 unspecified; I10 Essential (primary) hypertension; F03.90 Unspecified dementia, unspecified severity, without behavioral disturbance, psychotic disturbance, mood disturbance, and anxiety; E11.42 Type 2 diabetes mellitus with diabetic polyneuropathy; W19.XXXA Unspecified fall, initial encounter; Z91.81 History of falling; Y93.89 Activity, other specified; Y92.89 Other specified places as the place of occurrence of the external cause; Y99.8 Other external cause status; Z79.899 Other long term (current) drug therapy; F17.220 Nicotine dependence, chewing tobacco, uncomplicated
CPT/HCPCS: 36415; 70450; 72125; 80053; 81003; 82947; 83735; 85025; 87502; 87635; 93005; 97162; 99285; J1650

== ENCOUNTER → 2024-11-11 11:40 | Outpatient (BNV) | payer OTHER, SELFPAY | PROVIDERS: Emergency Provider Emergency Medicine; Visit Provider Radiology Diagnostic Radiology | DX: M54.2 Cervicalgia (principal); S09.90XA Unspecified injury of head, initial encounter; W19.XXXA Unspecified fall, initial encounter | CPT/HCPCS: 70450; 72125 ==

== ENCOUNTER → 2024-11-11 11:41 | Outpatient (BNV) | payer OTHER, SELFPAY | PROVIDERS: Emergency Provider Emergency Medicine; Visit Provider Internal Medicine | DX: I45.10 Unspecified right bundle-branch block (principal) | CPT/HCPCS: 93010 ==

== ENCOUNTER 2025-01-23 10:52 | Outpatient (AMB) | payer OTHER, SELFPAY ==
--- NOTE | 2025-01-23 11:44 | HO.NEPHOV ---
Vital Signs 01/23/25 11:49 Height 5 ft BP 112/60 Blood Pressure Location Rt brachial Position Sitting Pulse 88 Pulse Source Pulse Oximeter Pulse Oximetry (%) 96 Oxygen Delivery Method Room Air Intake Visit Reasons: 6 MO FU-[facility] earlene/[place] turntable worker Returned Goods Sorter Required: Yes Returned Goods Sorter Language: Orthopaedic Physician Assistant Services: Returned Goods Sorter Offered & Declined ([facility] Returned Goods Sorter services refused ) Accompanied by: Son Allergies duloxetine (Cymbalta) Allergy (Unknown, Verified 01/23/25 11:48) Unknown hydroxyzine Allergy (Unknown, Verified 01/23/25 11:48) unknown risperidone Allergy (Unknown, Verified 01/23/25 11:48) Unknown trazodone Allergy (Unknown, Verified 01/23/25 11:48) Unknown quetiapine (From SEROQUEL) Adverse Reaction (Severe, Verified 01/23/25 11:48) Acute Dystonic reaction HPI Comments Details: 70 year old female with Depression with anxiety, Schizoaffective disorder, PTSD (post-traumatic stress disorder), Dementia, CAD (coronary artery disease), Type 2 diabetes mellitus , Chronic kidney disease, stage 3 unspecified, Type 2 diabetes mellitus with diabetic polyneuropathy, Essential hypertension, Dyslipidemia with H/O hyponatremia was seen in follow up today. She was not following any fluid restriction. Her mental status remain at baseline. She does not have any weakness or falls. She was accompanied by [facility] linen room worker [facility] Medical History Breast calcification, left Disc degeneration, lumbar Dermatophytosis Dermatitis Joint pain Depression with anxiety Schizoaffective disorder PTSD (post-traumatic stress disorder) Dementia Smoking CAD (coronary artery disease) Type 2 diabetes mellitus with chronic kidney disease Chronic kidney disease, stage 3 unspecified Type 2 diabetes mellitus with diabetic polyneuropathy Essential hypertension Dyslipidemia Diabetes mellitus with hyperglycemia Surgical History Hx of colonoscopy Hx of cataract surgery Hx of tubal ligation Hx of section Family History Father No problems noted. Mother No problems noted. Social History Household Members: None Household Members Other:: has [facility] Services Housing: Apartment Do you presently have visiting nurse or other home services: Yes Alcohol intake: former Patient Tobacco Use Status: Current everyday Tobacco user Tobacco use type: Smokeless Tobacco Cigarette Packs Per Day: 1 Cigarettes Per Day: 4 e-Cigarette/Vaping Use: Never Used Second Hand Smoke Exposure: Yes Advance Directives Date on File: 09/30/20 service: No Sexual orientation: Straight/Heterosexual Review of Systems Const All systems reviewed & are unremarkable except as noted in HPI and below Physical Exam Vital Signs: Last Vital Signs Pulse 88 01/23/25 11:49 BP 112/60 01/23/25 11:49 Pulse Ox 96 01/23/25 11:49 Oxygen Delivery Method Room Air 01/23/25 11:49 Const General: comfortable and no acute distress HEENT Head: Yes normocephalic Mouth: Normal oral and palatal mucosa present Eyes EOM: EOMs intact bilaterally Neck Neck: Yes supple Resp Auscultation: clear to auscultation bilaterally Cardio Jugular venous distension: no JVD Rate: regular rate GI Palpation (GI): Soft to palpation Auscultation: normal bowel sounds General: Yes no CVA tenderness Back/Spine/Pelvis Back: no CVA tenderness Skin General skin exam: no rashes or lesions noted Neuro General: moves all extremities Results Reviewed Nephrology Results: Hgb, (12.0-16.0) 11.1 g/dl L 11/11/24 WBC, (4.8-10.8) 11.1 X10*3/uL H 11/11/24 Plt Count, (160-400) 235 X10*3/uL 11/11/24 Sodium, (135-145) 131 mmol/L L 11/11/24 Potassium, (3.3-5.1) 5.4 mmol/L H 11/11/24 Chloride, (96-108) 98 mmol/L 11/11/24 Carbon Dioxide, (22-29) 26 mmol/L 11/11/24 BUN, (9-16) 25 mg/dL H 11/11/24 Creatinine, (0.5-1.4) 1.12 mg/dL 11/11/24 Calcium, (8.4-10.2) 10.2 mg/dL Δ 11/11/24 Urine Protein, (Neg-Trace) Negative mg/dL 11/11/24 Renal US 11/07/24 Assessment & Plan Assessment & Plan (1) Hypertension: Code(s): I10 - Essential (primary) hypertension Category: Medical Qualifiers: Hypertension type: primary hypertension Qualified Code(s): I10 - Essential (primary) hypertension Plan H/O Hyponatremia -- resolved Has excess ADH at baseline Euvolemic. Serum Na close to baseline Cortisol/TSH - OK Immunofixation normal Mentation is at baseline now Renal function/Liver function normal BP at goal. Tolerating ACEI No signs of CHF; C/W rest of current management Orders: Orders Creatinine 1 Year I10 - Essential (primary) hypertension Blood Urea Nitrogen 1 Year I10 - Essential (primary) hypertension Electrolytes 1 Year I10 - Essential (primary) hypertension Coding Level of Care Code Est Pt Level 4 (67757) Diagnoses Primary hypertension I10 Hypertension type: primary hypertension
[2025-01-23 11:49] VITALS: BP 112/60; PULSE 88; O2SAT 96
--- OUTSIDE RECORDS SUMMARY | 2025-01-23 13:19 | XMS_ITS | Encounter Summary ---
Author Organization [facility] Address [address] [place] [address] Care Team Providers Care Automobile Salesman Name Role Phone Jodi Toussaint RN Primary Care Provider [phone] Encounter Details Date Type Department Care Team (Latest Contact Info) Description 11/14/2024 Lab Requisition [facility] - Main Lab [address] [facility] [place] [address] Jeanette Mendosa MD [address] [place] [id number] Anemia, unspecified; Chronic kidney disease, unspecified; Hyperlipidemia, unspecified; Type 2 diabetes mellitus without complications (CMS/HCC V24, CMS/HCC V28) Social History Tobacco Use Types Packs/Day Years Used Date Smoking Tobacco: Every Day Smokeless Tobacco: Never Alcohol Use Standard Drinks/Week Comments Never 0 (1 standard drink = 0.6 oz pur e alcohol) Comments Unknown Sex and Gender Information Value Date Recorded Sex Assigned at Not on file Legal Sex Female 2:27 AM EST Gender Identity Not on file Sexual Orientation Not on file documented as of this encounter Plan of Treatment Not on file documented as of this encounter Procedures Procedure Name Priority Date/Time Associated Diagnosis Comments VITAMIN B12 AND FOLATE Routine 11/14/2024 5:23 AM EDT Anemia, unspecified Chronic kidney disease, unspecified Hyperlipidemia, unspecified Type 2 diabetes mellitus without complications (CMS/HCC V24, CMS/HCC V28) LIPID PANEL WITH REFLEX TO DIRECT LDL Routine 11/14/2024 5:23 AM EDT Anemia, unspecified Chronic kidney disease, unspecified Hyperlipidemia, unspecified Type 2 diabetes mellitus without complications ([facility] V24, [facility] V28) CBC WITH AUTO DIFFERENTIAL Routine 11/14/2024 5:23 AM EDT Anemia, unspecified Chronic kidney disease, unspecified Hyperlipidemia, unspecified Type 2 diabetes mellitus without complications ([facility] V24, [facility] V28) VITAMIN D 25 HYDROXY Routine 11/14/2024 5:23 AM EDT Anemia, unspecified Chronic kidney disease, unspecified Hyperlipidemia, unspecified Type 2 diabetes mellitus without complications ([facility] V24, [facility] V28) CBC AND DIFFERENTIAL Routine 11/14/2024 5:23 AM EDT Anemia, unspecified Chronic kidney disease, unspecified Hyperlipidemia, unspecified Type 2 diabetes mellitus without complications ([facility] V24, [facility] V28) HEMOGLOBIN A1C Routine 11/14/2024 5:23 AM EDT Anemia, unspecified Chronic kidney disease, unspecified Hyperlipidemia, unspecified Type 2 diabetes mellitus without complications ([facility] V24, [facility] V28) COMPREHENSIVE METABOLIC PANEL Routine 11/14/2024 5:23 AM EDT Anemia, unspecified Chronic kidney disease, unspecified Hyperlipidemia, unspecified Type 2 diabetes mellitus without complications ([facility] V24, [facility] V28) documented in this encounter Results * (ABNORMAL) CBC auto differential (11/14/2024 5:23 AM EDT) [facility] WBC 8.4 4.8 - 10.8 K/mcL LAB HEMETOLOGY METHOD 11/14/2024 9:25 AM EDT [facility] RBC 3.90 3.80 - 4.80 M/mcL LAB HEMETOLOGY METHOD 11/14/2024 9:25 AM EDT [facility] Hemoglobin 10.3(L) 11.5 - 16.0 g/dL LAB HEMETOLOGY METHOD 11/14/2024 9:25 AM [facility] LAB Hematocrit 32.9(L) 35.0 - 47.0 % LAB HEMETOLOGY METHOD 11/14/2024 9:25 AM [facility] LAB MCV 85.0 79.0 - 98.0 FL LAB HEMETOLOGY METHOD 11/14/2024 9:25 AM [facility] LAB MCH 26.6(L) 27.0 - 32.0 pcg LAB HEMETOLOGY METHOD 11/14/2024 9:25 AM [facility] LAB MCHC 31.3(L) 32.0 - 37.0 g/dL LAB HEMETOLOGY METHOD 11/14/2024 9:25 AM [facility] RDW 13.7 11.0 - 15.0 % LAB HEMETOLOGY METHOD 11/14/2024 9:25 AM [facility] Platelets 225 130 - 400 K/mcL LAB HEMETOLOGY METHOD 11/14/2024 9:25 AM [facility] LAB MPV 12.4(H) 7.0 - 11.0 FL LAB HEMETOLOGY METHOD 11/14/2024 9:25 AM [facility] LAB NRBC 0.0 <1.0 % LAB HEMETOLOGY METHOD 11/14/2024 9:25 AM [facility] LAB NRBC Absolute 0.00 <0.10 K/mcL LAB HEMETOLOGY METHOD 11/14/2024 9:25 AM [facility] Neutrophils Relative 45.5 % LAB HEMETOLOGY METHOD 11/14/2024 9:25 AM [facility] Lymphocytes Relative 40.6 % LAB HEMETOLOGY METHOD 11/14/2024 9:25 AM [facility] Monocytes Relative 10.3 % LAB HEMETOLOGY METHOD 11/14/2024 9:25 AM [facility] Eosinophils Relative 2.6 % LAB HEMETOLOGY METHOD 11/14/2024 9:25 AM EDT [facility] Basophils Relative 0.8 % LAB HEMETOLOGY METHOD 11/14/2024 9:25 AM EDT [facility] Immature Granulocytes Relative 0.2 % LAB HEMETOLOGY METHOD 11/14/2024 9:25 AM EDT [facility] Neutrophils Absolute 3.83 1.50 - 7.00 K/mcL LAB HEMETOLOGY METHOD 11/14/2024 9:25 AM EDT [facility] Lymphocytes Absolute 3.42 1.00 - 5.00 K/mcL LAB HEMETOLOGY METHOD 11/14/2024 9:25 AM EDT [facility] Monocytes Absolute 0.87 0.20 - 1.00 K/mcL LAB HEMETOLOGY METHOD 11/14/2024 9:25 AM EDT [facility] Eosinophils Absolute 0.22 0.00 - 0.50 K/mcL LAB HEMETOLOGY METHOD 11/14/2024 9:25 AM EDT [facility] Basophils Absolute 0.07 0.00 - 0.20 K/mcL LAB HEMETOLOGY METHOD 11/14/2024 9:25 AM EDT [facility] Immature Granulocytes Absolute 0.02 0.00 - 0.03 K/mcL LAB HEMETOLOGY METHOD 11/14/2024 9:25 AM EDT [facility] Blood Venous blood specimen / Unknown Venipuncture / Unknown 11/14/2024 5:23 AM EDT 11/14/2024 8:30 AM EDT us Jeanette Mendosa MD LAB BLOOD ORDERABLES Final Resu lt [facility] [address] [place] [address], * (ABNORMAL) Vitamin D 25 hydroxy (11/14/2024 5:23 AM EDT) [facility] Vit D, 25-Hydroxy 19.2(L) 30.0 - 80.0 ng/mL LAB CHEMISTRY METHOD 11/14/2024 11:05 AM EDT [facility] Blood Venous blood specimen / Unknown Venipuncture / Unknown 11/14/2024 5:23 AM EDT 11/14/2024 8:30 AM EDT us Jeanette Mendosa MD LAB BLOOD ORDERABLES Final Resu lt Performing Organization Address [facility]/ZIP Co de Phone Number [facility] [address] [place] [address], [place] [phone] * (ABNORMAL) Vitamin B12 and folate (11/14/2024 5:23 AM EDT) [facility] Vitamin B-12 337 250 - 900 pcg/mL LAB CHEMISTRY METHOD 11/14/2024 10:19 AM EDT [facility] Folate 17.2(H) 2.8 - 17.0 ng/ml LAB CHEMISTRY METHOD 11/14/2024 10:19 AM EDT [facility] Blood Venous blood specimen / Unknown Venipuncture / Unknown 11/14/2024 5:23 AM EDT 11/14/2024 8:30 AM EDT us Jeanette Mendosa MD LAB BLOOD ORDERABLES Final Resu lt Performing Organization Address City/[facility]/ZIP Co de Phone Number [facility] [address] [place] [address], [place] [phone] * (ABNORMAL) Hemoglobin A1c (11/14/2024 5:23 AM EDT) [facility] Hemoglobin A1C 8.7(H) <6.5 % LAB CHEMISTRY METHOD 11/14/2024 12:42 PM EDT [facility] Mean Bld Glu Estim. 203 mg/dL LAB CHEMISTRY METHOD 11/14/2024 12:42 PM EDT [facility] Blood Venous blood specimen / Unknown Venipuncture / Unknown 11/14/2024 5:23 AM EDT 11/14/2024 8:30 AM EDT us Jeanette Mendosa MD LAB BLOOD ORDERABLES Final Resu lt [facility] [address] [place] [address], [place] [phone] * Lipid panel with reflex to direct LDL (11/14/2024 5:23 AM EDT) Cholesterol 126 0 - 200 mg/dL LAB CHEMISTRY METHOD 11/14/2024 10:19 AM EDT [facility] Triglycerides 112 0 - 150 mg/dL LAB CHEMISTRY METHOD 11/14/2024 10:19 AM [facility] HDL 50 >=40 mg/dL LAB CHEMISTRY METHOD 11/14/2024 10:19 AM EDT [facility] LDL Calculated 54 0 - 100 mg/dL LAB CHEMISTRY METHOD 11/14/2024 10:19 AM T [facility] LAB Comment:Estimated LDL Calcul ated using equation: Total cholesterol - HDL cholesterol - (Triglycerides/5) VLDL Cholesterol Arnol 22.4 mg/dL LAB CHEMISTRY METHOD 11/14/2024 10:19 AM EDT [facility] Non HDL Chol. (LDL+VLDL) 76 <145 mg/dL LAB CHEMISTRY METHOD 11/14/2024 10:19 AM [facility] Chol/HDL Ratio 2.5 0.0 - 4.4 LAB CHEMISTRY METHOD 11/14/2024 10:19 AM [facility] Blood Venous blood specimen / Unknown Venipuncture / Unknown 11/14/2024 5:23 AM EDT 11/14/2024 8:30 AM EDT us Jeanette Mendosa MD LAB BLOOD ORDERABLES Final Resu lt [facility] [address] [place] [address], * (ABNORMAL) Comprehensive metabolic panel (11/14/2024 5:23 AM EDT) Sodium 134 133 - 145 mmol/L LAB CHEMISTRY METHOD 11/14/2024 10:19 AM [facility] Potassium 4.9 3.5 - 5.5 mmol/L LAB CHEMISTRY METHOD 11/14/2024 10:19 AM [facility] Chloride 100 96 - 110 mmol/L LAB CHEMISTRY METHOD 11/14/2024 10:19 AM [facility] CO2 30 21 - 32 mmol/L LAB CHEMISTRY METHOD 11/14/2024 10:19 AM [facility] Anion Gap 4 3 - 11 LAB CHEMISTRY METHOD 11/14/2024 10:19 AM [facility] Glucose 241(H) 70 - 100 mg/dL LAB CHEMISTRY METHOD 11/14/2024 10:19 AM [facility] BUN 26(H) 5 - 25 mg/dL LAB CHEMISTRY METHOD 11/14/2024 10:19 AM [facility] Creatinine 0.88 0.50 - 1.10 mg/dL LAB CHEMISTRY METHOD 11/14/2024 10:19 AM [facility] eGFR 72 >=60 mL/min/1. 73m2 LAB CHEMISTRY METHOD 11/14/2024 10:19 AM [facility] LAB Comment:Calculation based on the Chronic Kidney Disease Epidemiology Collaboration (CKD-EPI) equation refit without adjustment for race. BUN/Creatinine Ratio 29.5 LAB CHEMISTRY METHOD 11/14/2024 10:19 AM [facility] Calcium 9.5 8.5 - 10.5 mg/dL LAB CHEMISTRY METHOD 11/14/2024 10:19 AM T [facility] AST (SGOT) 28 10 - 42 unit/L LAB CHEMISTRY METHOD 11/14/2024 10:19 AM T [facility] ALT (SGPT) 46 10 - 60 unit/L LAB CHEMISTRY METHOD 11/14/2024 10:19 AM T [facility] Alkaline Phosphatase 86 42 - 121 unit/L LAB CHEMISTRY METHOD 11/14/2024 10:19 AM EDT [facility] Total Protein 6.7 6.0 - 8.0 g/dL LAB CHEMISTRY METHOD 11/14/2024 10:19 AM T [facility] Albumin 3.3 3.2 - 5.0 g/dL LAB CHEMISTRY METHOD 11/14/2024 10:19 AM [facility] Total Bilirubin 0.3 0.0 - 1.4 mg/dL LAB CHEMISTRY METHOD 11/14/2024 10:19 AM T [facility] Blood Venous blood specimen / Unknown Venipuncture / Unknown 11/14/2024 5:23 AM EDT 11/14/2024 8:30 AM EDT us Jeanette Mendosa MD LAB BLOOD ORDERABLES Final Resu lt [facility] [address] [place] [address], documented in this encounter Visit Diagnoses Diagnosis Anemia, unspecified Chronic kidney disease, unspecified Hyperlipidemia, unspecified Type 2 diabetes mellitus without complications (CMS/HCC V24, CMS/HCC V28) documented in this encounter Care Teams Automobile Salesman Relationship Specialty Start Date End Date Jodi Toussaint RN [address] [place] [phone] PCP - General 06/16/21 documented as of this encounter
--- OUTSIDE RECORDS SUMMARY | 2025-01-23 13:19 | XMS_ITS | Encounter Summary ---
Author Organization [employer] Address [address] [facility] 7[address] [place] [address] Care Team Providers Care Pharmacy Tech Name Role Phone Gilda De La Torre MD Primary Care Provide r Toya Kyle PharmD Unavailable [phone] Reason for Visit * Reason Onset Date Comments MATE FIRST Hours and VNA Services 04/14/2023 Encounter Details Date Type Department Care Team (Late st Contact Info) Description 04/14/2023 Telephone [facility] MEDICINE [address] [place], [place] [phone] Gilda De La Torre MD [address] [place], [place] [phone] MATE FIRST Hours and VNA Services Social History Tobacco [...] with ICP requesting status of increase on MATE FIRST hours request. Please contact at [phone] * Telephone Encounter - Leyla Peacock - 05/04/2023 3:56 PM EST Tc from [facility] requesting status on MATE FIRST hours and life alert request. Please contact at [phone] * Telephone Encounter - Joy Winn - 04/14/2023 4:32 PM EST Tc from Kika with [facility] stating that pt is requiring more MATE FIRST Hours and VNA Orders. Please contact Wendy @ [phone] documented in this encounter Plan of Treatment Upcoming Encounters Date Type Department Care Team (Late st Contact Info) Description 01/30/2025 11:00 AM EST Office Visit [facility] OPTOMETRY [address] [place] [address] Meme Covington, OD [address] [place], [place] [phone] 03/20/2025 3:00 PM EST Office Visit [facility] MEDICINE [address] [place], [place] [phone] Gilda De La Torre MD [address] [place] [address] [phone] documented as of this encounter Visit Diagnoses Not on filedocumented in this encounter Additional Health Concerns Assessment Noted Time PHQ-9 Depression Total Score: 14 023 10:32 AM EDT documented as of this encounter Care Teams Pharmacy Tech Relationship Specialty Start Date End Date Gilda De La Torre MD [address] [place] [phone] PCP - General Family Medicine 10/25/21 Toya Kyle, PharmD [address] [place] [address] [phone] Pharmacist Internal Medicine 11/06/23 Ina 10/31/24 documented as of this encounter
--- OUTSIDE RECORDS SUMMARY | 2025-01-23 13:19 | XMS_ITS | Encounter Summary ---
Author Organization [employer] Address [address] [facility] [address] [place] [address] Care Team Providers Care Office Lead Name Role Phone Gilda De La Torre MD Primary Care Provide r Toya Kyle PharmD Unavailable [phone] Encounter Details Date Type Department Care Team (Late st Contact Info) Description 03/24/2024 Orders Only [facility] MEDICINE [address] [place], [place] [phone] Provider, MD Jose J Social History Tobacco [...] Description 01/30/2025 11:00 AM EST Office Visit [facility] OPTOMETRY [address] [place] [address] Adria, Meme, OD [address] [place] [address] 03/20/2025 3:00 PM EST Office Visit [facility] MEDICINE [address] [place] [address] Gilda De La Torre MD [address] [place] [address] documented as of this encounter Procedures Procedure Name Priority Date/Time Associated Diagnosis Comments HM MAMMOGRAPHY Routine 03/15/2024 2:11 PM EST documented [...] documented as of this encounter Care Teams Office Lead Relationship Specialty Start Date End Date Gilda De La Torre MD [address] [place] [address] PCP - General Family Medicine 10/25/21 Toya Kyle, Fay [address] [place] [address] Pharmacist Internal Medicine 11/06/23 Ina 10/31/24 documented as of this encounter
--- OUTSIDE RECORDS SUMMARY | 2025-01-23 13:19 | XMS_ITS | Encounter Summary ---
Author Organization [employer] Address [address] [facility] 7[address] [place] [address] Care Team Providers Care Certified Ethical Hacker Name Role Phone Gilda De La Torre MD Primary Care Provide r Toya Kyle PharmD Unavailable [phone] Reason for Visit * Reason Comments Med Refill Encounter Details Date Type Department Care Team (Late Contact Info) Description 10/08/2022 Refill [facility] MEDICINE [address] [place] [address] Gilda De La Torre MD [address] [place] [address] Social History Tobacco Use Types Packs/Day Years [...] Description 01/30/2025 11:00 AM EST Office Visit [facility] OPTOMETRY [address] [place] [address] Meme Covington, OD [address] [place], [place] [phone] 03/20/2025 3:00 PM EST Office Visit [facility] MEDICINE [address] [place], [place] [phone] Gilda De La Torre MD [address] [place], [place] [phone] documented as of this encounter Visit Diagnoses Not on filedocumented in this encounter Additional Health Concerns Assessment Noted Time PHQ-9 Depression Total Score: 14 023 10:32 AM EDT documented as of this encounter Care Teams Certified Ethical Hacker Relationship Specialty Start Date End Date Gilda De La Torre MD [place], [place] [phone] PCP - General Family Medicine 10/25/21 Toya Kyle, RosaD [address] [place] [address] [phone] Pharmacist Internal Medicine 11/06/23 Ina 10/31/24 documented as of this encounter
--- OUTSIDE RECORDS SUMMARY | 2025-01-23 13:19 | XMS_ITS | Clinical Summary ---
Author Organization [facility] Address [address] [place] [address] Phone Care Team Providers Care Bank Runner Name Role Phone Jodi Toussaint RN Primary Care Provider [phone] Allergies No known active allergies Encounters Date Type Department Care Team Description 12/11/2024 Lab Requisition [facility] [address] [place] [phone] Jeanette Mendosa MD Other mcc (current) drug therapy; Type 2 diabetes mellitus without complications ([facility] V24, [facility] V28) 12/04/2024 Lab Requisition [facility] [address] [place] [phone] Jeanette Mendosa MD Cerebral ischemia 11/14/2024 Lab Requisition [facility] [address] [place] [phone] Jeanette Mendosa MD Anemia, unspecified; Chronic kidney disease, unspecified; Hyperlipidemia, unspecified; Type 2 diabetes mellitus without complications ([facility]/HCC V24, [facility] V28) from Last 3 Months Medical History Medical History Date Comments Dermatophytosis 08/05/2021 DX:Dermatophytos is Back pain 08/05/2021 DX:Back pain Schizoaffective disorder (CM S/HCC V24, [facility] V28) 08/05/2021 DX:Schizoaffective disorder (HCC) Hyperlipidemia 08/05/2021 DX:Hyperlipidemi a Elevated TSH 08/05/2021 DX:Elevated TSH Diabetes mellitus ([facility] V 24, [facility] V28) 08/05/2021 DX:Diabetes mellitus (HCC) PTSD (post-traumatic stress disorder) 08/05/2021 DX:PTSD (post-traumatic stress disorder) Frontal lobe dementia (CMS/H CC V24, [facility]/HCC V28) 08/05/2021 DX:Frontal lobe dementia (HC C) Diabetic neuropathy ([facility]/HCC V24, [facility] V28) 08/05/2021 DX:Diabetic neuropathy (HCC) Hypertension 08/05/2021 [...] 11/30/2022 12:50 PM EDT Plan of Treatment Health Maintenance Due Date Last Done Comments Colorectal Cancer Screening: Colonoscopy 1955 Diabetes: Annual Foot Exam 01/16/1966 Diabetes: Annual Retina Eye Exam 01/16/1966 Diabetes: Annual Urine Albumin-Creatinine Ratio (uACR) 02/07/2022 Falls Risk Assessment 02/07/2022 Hepatitis C Screening 02/07/2022 Medicare Annual Wellness Visit 02/07/2022 Osteoporosis Screening (Bone Density Screening) 02/07/2022 Social Influencers of Health Screening 02/07/2022 Depression Screening 02/29/2024 COVID-19 Vaccine ( season) 2024 03/10/2022, 12/22/2020, 06/03/2020, Additional history exists Influenza Vaccine (#1) 2024 , 12/03/2022, 12/08/2021, Additional history exists Diabetes: Blood Sugar Control Test (HGBA1C) 06/11/2025 12/11/2024, 11/14/2024, 09/19/2024, Additional history exists Diabetes: Annual GFR (Glomerular Filtration Rate) 12/11/2025 12/11/2024, 12/04/2024, 11/14/2024, Additional history exists Hypertension/CHF/CAD Annual BMP Blood Test 12/11/2025 12/11/2024, 12/04/2024, 11/14/2024, Additional history exists Breast Cancer Screening 03/15/2026 03/15/2024 DTaP,Tdap,and Td Vaccines (4 - Td or Tdap) 02/03/2027 02/03/2017, 12/29/2006, 11/26/1999 Cholesterol Screening (Lipid Panel) 12/11/2029 12/11/2024, 11/14/2024, 05/12/2024, Additional history exists Hepatitis B Vaccines Completed 01/27/2021, 01/31/2019, 09/15/2015 [...] Procedure Name Priority Date/Time Associated Diagnosis Comments HEMOGLOBIN A1C Routine 12/11/2024 5:37 AM EDT Other mcc (current) drug therapy Type 2 diabetes mellitus without complications (CMS/HCC V24, CMS/HCC V28) LIPID PANEL WITH REFLEX TO DIRECT LDL Routine 12/11/2024 5:37 AM EDT Other intermediate manager (current) drug therapy Type 2 diabetes mellitus without complications (CMS/HCC V24, CMS/HCC V28) COMPREHENSIVE METABOLIC PANEL Routine 12/11/2024 5:37 AM EDT Other intermediate manager (current) drug therapy Type 2 diabetes mellitus without complications (CMS/HCC V24, CMS/HCC V28) COMPLETE BLOOD COUNT Routine 12/11/2024 5:37 AM EDT Other mcc (current) drug therapy Type 2 diabetes mellitus without complications (CMS/HCC V24, CMS/HCC V28) BASIC METABOLIC PANEL Routine 12/04/2024 4:44 AM EDT Cerebral ischemia COMPLETE BLOOD COUNT Routine 12/04/2024 4:44 AM EDT Cerebral ischemia CBC WITH AUTO DIFFERENTIAL Routine 11/14/2024 5:23 AM EDT Anemia, unspecified Chronic kidney disease, unspecified Hyperlipidemia, unspecified Type 2 diabetes mellitus without complications (CMS/HCC V24, CMS/HCC V28) VITAMIN D 25 HYDROXY Routine 11/14/2024 5:23 AM EDT Anemia, unspecified Chronic kidney disease, unspecified Hyperlipidemia, unspecified Type 2 diabetes mellitus without complications (CMS/HCC V24, CMS/HCC V28) VITAMIN B12 AND FOLATE Routine 11/14/2024 5:23 AM EDT Anemia, unspecified Chronic kidney disease, unspecified Hyperlipidemia, unspecified Type 2 diabetes mellitus without complications (CMS/HCC V24, CMS/HCC V28) HEMOGLOBIN A1C Routine 11/14/2024 5:23 AM EDT Anemia, unspecified Chronic kidney disease, unspecified Hyperlipidemia, unspecified Type 2 diabetes mellitus without complications ([facility] V24, [facility] V28) LIPID PANEL WITH REFLEX TO DIRECT LDL Routine 11/14/2024 5:23 AM EDT Anemia, unspecified Chronic kidney disease, unspecified Hyperlipidemia, unspecified Type 2 diabetes mellitus without complications ([facility] V24, [facility] V28) COMPREHENSIVE METABOLIC PANEL Routine 11/14/2024 5:23 AM EDT Anemia, unspecified Chronic kidney disease, unspecified Hyperlipidemia, unspecified Type 2 diabetes mellitus without complications ([facility] V24, [facility] V28) CBC AND DIFFERENTIAL Routine 11/14/2024 5:23 AM EDT Anemia, unspecified Chronic kidney disease, unspecified Hyperlipidemia, unspecified Type 2 diabetes mellitus without complications ([facility] V24, [facility] V28) MG MAMMO DIGITAL DIAGNOSTIC POST CLIP LEFT Routine 03/15/2024 11:26 AM EST Mammographic calcification found on diagnostic imaging of breast from Last 3 Months or Most Recently Relevant to Health Maintenance Results * Lipid panel with reflex to direct LDL (12/11/2024 5:37 AM EDT) Only the most recent of2 resultswithin the time period is included. Cholesterol 145 0 - 200 mg/dL LAB CHEMISTRY METHOD 12/11/2024 9:34 AM EDT [facility] Triglycerides 66 0 - 150 mg/dL LAB CHEMISTRY METHOD 12/11/2024 9:34 AM T [facility] HDL 59 >=40 mg/dL LAB CHEMISTRY METHOD 12/11/2024 9:34 AM EDT [facility] LDL Calculated 73 0 - 100 mg/dL LAB CHEMISTRY METHOD 12/11/2024 9:34 AM T [facility] Comment:Estimated LDL Calcul ated using equation: Total cholesterol - HDL cholesterol - (Triglycerides/5) VLDL Cholesterol Arnol 13.2 mg/dL LAB CHEMISTRY METHOD 12/11/2024 9:34 AM EDT [facility] Non HDL Chol. (LDL+VLDL) 86 <145 mg/dL LAB CHEMISTRY METHOD 12/11/2024 9:34 AM EDT [facility] Chol/HDL Ratio 2.5 0.0 - 4.4 LAB CHEMISTRY METHOD 12/11/2024 9:34 AM EDT [facility] Blood Venous blood specimen / Unknown Venipuncture / Unknown 12/11/2024 5:37 AM EDT 12/11/2024 7:56 AM EDT us Jeanette Mendosa MD LAB BLOOD ORDERABLES Final Resu lt [facility] [address] [place] [address], [place] [phone] * (ABNORMAL) Complete blood count (12/11/2024 5:37 AM EDT) Only the most recent of2 resultswithin the time period is included. WBC 8.8 4.8 - 10.8 K/mcL LAB HEMETOLOGY METHOD 12/11/2024 8:41 AM [facility] RBC 4.20 3.80 - 4.80 M/[facility] LAB HEMETOLOGY METHOD 12/11/2024 8:41 AM T [facility] Hemoglobin 10.7(L) 11.5 - 16.0 g/dL LAB HEMETOLOGY METHOD 12/11/2024 8:41 AM [facility] LAB Hematocrit 35.3 35.0 - 47.0 % LAB HEMETOLOGY METHOD 12/11/2024 8:41 AM [facility] LAB MCV 84.9 79.0 - 98.0 FL LAB HEMETOLOGY METHOD 12/11/2024 8:41 AM EDT [facility] MCH 25.7(L) 27.0 - 32.0 pcg LAB HEMETOLOGY METHOD 12/11/2024 8:41 AM T [facility] MCHC 30.3(L) 32.0 - 37.0 g/dL LAB HEMETOLOGY METHOD 12/11/2024 8:41 AM [facility] LAB RDW 13.7 11.0 - 15.0 % LAB HEMETOLOGY METHOD 12/11/2024 [facility] Platelets 211 130 - 400 K/mcL LAB HEMETOLOGY METHOD 12/11/2024 8:41 AM [facility] MPV 13.0(H) 7.0 - 11.0 FL LAB HEMETOLOGY METHOD 12/11/2024 8:41 AM [facility] NRBC 0.0 <1.0 % LAB HEMETOLOGY METHOD 12/11/2024 8:41 AM [facility] LAB NRBC Absolute 0.00 <0.10 K/mcL LAB HEMETOLOGY METHOD 12/11/2024 8:41 AM [facility] Blood Venous blood specimen / Unknown Venipuncture / Unknown 12/11/2024 5:37 AM EDT 12/11/2024 7:56 AM EDT us Jeanette Mendosa MD LAB BLOOD ORDERABLES Final Resu lt [facility] [address] [place] [address], * (ABNORMAL) Hemoglobin A1c (12/11/2024 5:37 AM EDT) Only the most recent of2 resultswithin the time period is included. Hemoglobin A1C 9.4(H) <6.5 % LAB CHEMISTRY METHOD 12/11/2024 11:17 [facility] Mean Bld Glu Estim. 223 mg/dL LAB CHEMISTRY METHOD 12/11/2024 11:17 AM [facility] Blood Venous blood specimen / Unknown Venipuncture / Unknown 12/11/2024 5:37 AM EDT 12/11/2024 7:56 AM EDT us Jeanette Mendosa MD LAB BLOOD ORDERABLES Final Resu lt [facility] [address] [place] [address], [place] [phone] * (ABNORMAL) Comprehensive metabolic panel (12/11/2024 5:37 AM EDT) Only the most recent of2 resultswithin the time period is included. Sodium 138 133 - 145 mmol/L LAB CHEMISTRY METHOD 12/11/2024 9:34 AM [facility] Potassium 4.9 3.5 - 5.5 mmol/L LAB CHEMISTRY METHOD 12/11/2024 9:34 AM [facility] Chloride 102 96 - 110 mmol/L LAB CHEMISTRY METHOD 12/11/2024 9:34 AM [facility] CO2 29 21 - 32 mmol/L LAB CHEMISTRY METHOD 12/11/2024 9:34 AM [facility] Anion Gap 7 3 - 11 LAB CHEMISTRY METHOD 12/11/2024 9:34 AM [facility] Glucose 129(H) 70 - 100 mg/dL LAB CHEMISTRY METHOD 12/11/2024 9:34 AM [facility] BUN 21 5 - 25 mg/dL LAB CHEMISTRY METHOD 12/11/2024 9:34 AM [facility] LAB Creatinine 0.91 0.50 - 1.10 mg/dL LAB CHEMISTRY METHOD 12/11/2024 9:34 AM [facility] LAB eGFR 69 >=60 mL/min/1. 73m2 LAB CHEMISTRY METHOD 12/11/2024 9:34 AM [facility] LAB Comment:Calculation based on the Chronic Kidney Disease Epidemiology Collaboration (CKD-EPI) equation refit without adjustment for race. BUN/Creatinine Ratio 23.1 LAB CHEMISTRY METHOD 12/11/2024 9:34 AM [facility] Calcium 10.2 8.5 - 10.5 mg/dL LAB CHEMISTRY METHOD 12/11/2024 9:34 AM [facility] AST (SGOT) 30 10 - 42 unit/L LAB CHEMISTRY METHOD 12/11/2024 9:34 AM [facility] ALT (SGPT) 43 10 - 60 unit/L LAB CHEMISTRY METHOD 12/11/2024 9:34 AM [facility] Alkaline Phosphatase 94 42 - 121 unit/L LAB CHEMISTRY METHOD 12/11/2024 9:34 AM [facility] Total Protein 7.2 6.0 - 8.0 g/dL LAB CHEMISTRY METHOD 12/11/2024 9:34 AM [facility] Albumin 3.3 3.2 - 5.0 g/dL LAB CHEMISTRY METHOD 12/11/2024 9:34 AM [facility] Total Bilirubin 0.2 0.0 - 1.4 mg/dL LAB CHEMISTRY METHOD 12/11/2024 9:34 AM [facility] Blood Venous blood specimen / Unknown Venipuncture / Unknown 12/11/2024 5:37 AM EDT 12/11/2024 7:56 AM EDT us Jeanette Mendosa MD LAB BLOOD ORDERABLES Final Resu lt [facility] [address] [place] [address], * (ABNORMAL) Basic metabolic panel (12/04/2024 4:44 AM EDT) Sodium 140 133 - 145 mmol/L LAB CHEMISTRY METHOD 12/04/2024 8:41 AM [facility] Potassium 4.8 3.5 - 5.5 mmol/L LAB CHEMISTRY METHOD 12/04/2024 8:41 AM [facility] Chloride 108 96 - 110 mmol/L LAB CHEMISTRY METHOD 12/04/2024 8:41 AM [facility] CO2 28 21 - 32 mmol/L LAB CHEMISTRY METHOD 12/04/2024 8:41 AM [facility] Anion Gap 4 3 - 11 LAB CHEMISTRY METHOD 12/04/2024 8:41 AM [facility] Glucose 151(H) 70 - 100 mg/dL LAB CHEMISTRY METHOD 12/04/2024 8:41 AM [facility] BUN 19 5 - 25 mg/dL LAB CHEMISTRY METHOD 12/04/2024 8:41 AM [facility] Creatinine 0.88 0.50 - 1.10 mg/dL LAB CHEMISTRY METHOD 12/04/2024 8:41 AM [facility] eGFR 72 >=60 mL/min/1. 73m2 LAB CHEMISTRY METHOD 12/04/2024 8:41 AM [facility] Comment:Calculation based on the Chronic Kidney Disease Epidemiology Collaboration (CKD-EPI) equation refit without adjustment for race. BUN/Creatinine Ratio 21.6 LAB CHEMISTRY METHOD 12/04/2024 8:41 AM [facility] Calcium 9.1 8.5 - 10.5 mg/dL LAB CHEMISTRY METHOD 12/04/2024 8:41 AM [facility] Blood Venous blood specimen / Unknown Venipuncture / Unknown 12/04/2024 4:44 AM EDT 12/04/2024 8:00 AM EDT us Jeanette Mendosa MD LAB BLOOD ORDERABLES Final Resu lt Performing Organization Address [facility]/ZIP Co de Phone Number [facility] [address] [place] [address], * (ABNORMAL) Vitamin B12 and folate (11/14/2024 5:23 AM EDT) [facility] Vitamin B-12 337 250 - 900 pcg/mL LAB CHEMISTRY METHOD 11/14/2024 10:19 AM EDT [facility] Folate 17.2(H) 2.8 - 17.0 ng/ml LAB CHEMISTRY METHOD 11/14/2024 10:19 AM EDT [facility] Blood Venous blood specimen / Unknown Venipuncture / Unknown 11/14/2024 5:23 AM EDT 11/14/2024 8:30 AM EDT Jeanette Mendosa MD LAB BLOOD ORDERABLES Final Resu lt Performing Organization Address [facility]/ZIP Co de Phone Number [facility] [address] [place] [address], * (ABNORMAL) CBC auto differential (11/14/2024 5:23 AM EDT) [facility] WBC 8.4 4.8 - 10.8 K/mcL LAB HEMETOLOGY METHOD 11/14/2024 9:25 AM EDT [facility] RBC 3.90 3.80 - 4.80 M/mcL LAB HEMETOLOGY METHOD 11/14/2024 9:25 AM EDT [facility] Hemoglobin 10.3(L) 11.5 - 16.0 g/dL LAB HEMETOLOGY METHOD 11/14/2024 9:25 AM EDT [facility] Hematocrit 32.9(L) 35.0 - 47.0 % LAB HEMETOLOGY METHOD 11/14/2024 9:25 AM EDT [facility] MCV 85.0 79.0 - 98.0 FL LAB HEMETOLOGY METHOD 11/14/2024 9:25 AM EDT [facility] MCH 26.6(L) 27.0 - 32.0 pcg LAB HEMETOLOGY METHOD 11/14/2024 9:25 AM [facility] MCHC 31.3(L) 32.0 - 37.0 g/dL LAB HEMETOLOGY METHOD 11/14/2024 9:25 AM [facility] RDW 13.7 11.0 - 15.0 % LAB HEMETOLOGY METHOD 11/14/2024 9:25 AM [facility] Platelets 225 130 - 400 K/mcL LAB HEMETOLOGY METHOD 11/14/2024 9:25 AM [facility] LAB MPV 12.4(H) 7.0 - 11.0 FL LAB HEMETOLOGY METHOD 11/14/2024 9:25 AM [facility] NRBC 0.0 <1.0 % LAB HEMETOLOGY METHOD 11/14/2024 9:25 AM [facility] NRBC Absolute 0.00 <0.10 K/mcL LAB HEMETOLOGY METHOD 11/14/2024 9:25 AM [facility] Neutrophils Relative 45.5 % LAB HEMETOLOGY METHOD 11/14/2024 9:25 AM [facility] Lymphocytes Relative 40.6 % LAB HEMETOLOGY METHOD 11/14/2024 9:25 AM [facility] Monocytes Relative 10.3 % LAB HEMETOLOGY METHOD 11/14/2024 9:25 AM [facility] Eosinophils Relative 2.6 % LAB HEMETOLOGY METHOD 11/14/2024 9:25 AM [facility] Basophils Relative 0.8 % LAB HEMETOLOGY METHOD 11/14/2024 9:25 AM [facility] Immature Granulocytes Relative 0.2 % LAB HEMETOLOGY METHOD 11/14/2024 9:25 AM EDT [facility] Neutrophils Absolute 3.83 1.50 - 7.00 K/[facility] LAB HEMETOLOGY METHOD 11/14/2024 9:25 AM EDT [facility] Lymphocytes Absolute 3.42 1.00 - 5.00 K/mcL LAB HEMETOLOGY METHOD 11/14/2024 9:25 AM EDT [facility] Monocytes Absolute 0.87 0.20 - 1.00 K/[facility] LAB HEMETOLOGY METHOD 11/14/2024 9:25 AM EDT [facility] Eosinophils Absolute 0.22 0.00 - 0.50 K/[facility] LAB HEMETOLOGY METHOD 11/14/2024 9:25 AM EDT [facility] Basophils Absolute 0.07 0.00 - 0.20 K/mcL LAB HEMETOLOGY METHOD 11/14/2024 9:25 AM EDT [facility] Immature Granulocytes Absolute 0.02 0.00 - 0.03 K/[facility] LAB HEMETOLOGY METHOD 11/14/2024 9:25 AM EDT [facility] Blood Venous blood specimen / Unknown Venipuncture / Unknown 11/14/2024 5:23 AM EDT 11/14/2024 8:30 AM EDT us Jeanette Mendosa MD LAB BLOOD ORDERABLES Final Resu lt [facility] [address] [place] [address], * (ABNORMAL) Vitamin D 25 hydroxy (11/14/2024 5:23 AM EDT) Vit D, 25-Hydroxy 19.2(L) 30.0 - 80.0 ng/mL LAB CHEMISTRY METHOD 11/14/2024 11:05 AM EDT [facility] Blood Venous blood specimen / Unknown Venipuncture / Unknown 11/14/2024 5:23 AM EDT 11/14/2024 8:30 AM EDT us Jeanette Mendosa MD LAB BLOOD ORDERABLES Final Resu lt [facility] [address] [place] [address], * MG Mammo Digital Diagnostic Clip Post MG Guide Left (Statistics) (03/15/2024 11:26 AM EST) Anatomical Region Laterality Modality Breast Left Mammography 03/15/2024 12:0 8 PM EST Addenda Addendum by Samy Martinez MD on 03/20/2024 2:29 PM EST Addendum generated to document communication of the results The pathology results were communicated to Daylin the health and social care teacher assisting in the care of Ms. Cunha I notified the health and social care teacher of the benign results and the recommendation for mammography in one year at approximately 1430 hours on 03/20/2024 -------- ADDENDUM -------- Dictated By: Samy Martinez Dictated Date: 03/20/2024 14:28 ET Assigned Physician: Samy Martinez Reviewed and Electronically Signed By: Samy Martinez Signed Date: 03/20/2024 14:29 ET Workstation ID: [id number] Transcribed By: Self Edit Transcribed Date: 03/20/2024 14:28 ET Addendum by Smay Martinez MD on 03/16/2024 12:59 PM EST [...] Signed Date: 03/16/2024 12:59 ET Workstation ID: [id number] Transcribed By: Self Edit Transcribed Date: 03/16/2024 [...] was explained to the patient through the magnetic resonance imaging coordinator. There was no evidence of immediate complication. Postprocedure mammography was performed. An addendum will be generated when the pathology results become available RECOMMENDATION: Pathology pending for the left breast. -------- FINAL REPORT -------- Dictated By: Samy Martinez Dictated Date: 03/15/2024 12:08 ET Assigned Physician: Samy Martinez Reviewed and Electronically Signed By: Samy Martinez Signed Date: 03/15/2024 12:21 ET Workstation ID: [id number] Transcribed By: Self Edit Transcribed Date: 03/15/2024 [...] requested. PROCEDURE: Informed consent was obtained. A interpreter and translator was used throughout the consent process and [...] Phone Billing Address Personal/Family Self 1955 [address] [place] [address] [facility] MEDICARE Member Subscriber Plan / Payer (Ef fective 2023-Present) Name:Celeste Cunha Relation to Subscriber:Self Name:Celeste Cunha Payer ID:[id number] Group ID:[id number] Type:Not on file Address: [facility] [address] [phone] Care Teams Bank Runner Relationship Specialty Start Date End Date Jodi Toussaint RN [address] [place] [phone] PCP - General 06/16/21
--- OUTSIDE RECORDS SUMMARY | 2025-01-23 13:19 | XMS_ITS | Encounter Summary ---
Author Organization [facility] Address [address] [place] [address] Care Team Providers Care [employer] Transportation Supervisor Name Role Phone Jodi Toussaint RN Primary Care Provider [phone] Encounter Details Date Type Department Care Team (Late st Contact Info) Description 12/04/2024 Lab Requisition [facility] [address] [place] [address] Jeanette Mendosa MD [address] [place] [id number] Cerebral ischemia Social History Tobacco Use Types Packs/Day Years [...] Procedure Name Priority Date/Time Associated Diagnosis Comments COMPLETE BLOOD COUNT Routine 12/04/2024 4:44 AM EDT Cerebral ischemia BASIC METABOLIC PANEL Routine 12/04/2024 4:44 AM EDT Cerebral ischemia documented in this encounter Results * (ABNORMAL) Basic metabolic panel (12/04/2024 4:44 AM EDT) Sodium 140 133 - 145 mmol/L LAB CHEMISTRY METHOD 12/04/2024 8:41 AM EDT [facility] Potassium 4.8 3.5 - 5.5 mmol/L LAB CHEMISTRY METHOD 12/04/2024 8:41 AM [facility] Chloride 108 96 - 110 mmol/L LAB CHEMISTRY METHOD 12/04/2024 8:41 AM [facility] CO2 28 21 - 32 mmol/L LAB CHEMISTRY METHOD 12/04/2024 8:41 AM [facility] Anion Gap 4 3 - 11 LAB CHEMISTRY METHOD 12/04/2024 8:41 AM [facility] Glucose 151(H) 70 - 100 mg/dL LAB CHEMISTRY METHOD 12/04/2024 8:41 AM [facility] BUN 19 5 - 25 mg/dL LAB CHEMISTRY METHOD 12/04/2024 8:41 AM [facility] Creatinine 0.88 0.50 - 1.10 mg/dL LAB CHEMISTRY METHOD 12/04/2024 8:41 AM [facility] eGFR 72 >=60 mL/min/1. 73m2 LAB CHEMISTRY METHOD 12/04/2024 8:41 AM [facility] Comment:Calculation based on the Chronic Kidney Disease Epidemiology Collaboration (CKD-EPI) equation refit without adjustment for race. BUN/Creatinine Ratio 21.6 LAB CHEMISTRY METHOD 12/04/2024 8:41 AM [facility] Calcium 9.1 8.5 - 10.5 mg/dL LAB CHEMISTRY METHOD 12/04/2024 8:41 AM [facility] Blood Venous blood specimen / Unknown Venipuncture / Unknown 12/04/2024 4:44 AM EDT 12/04/2024 8:00 AM EDT us Jeanette Mendosa MD LAB BLOOD ORDERABLES Final Resu lt [facility] [address] [place] [address], [place] [phone] * (ABNORMAL) Complete blood count (12/04/2024 4:44 AM EDT) [facility] WBC 10.6 4.8 - 10.8 K/mcL LAB HEMETOLOGY METHOD 12/04/2024 8:24 AM [facility] RBC 3.80 3.80 - 4.80 M/mcL LAB HEMETOLOGY METHOD 12/04/2024 8:24 AM [facility] Hemoglobin 10.0(L) 11.5 - 16.0 g/dL LAB HEMETOLOGY METHOD 12/04/2024 8:24 AM [facility] Hematocrit 32.2(L) 35.0 - 47.0 % LAB HEMETOLOGY METHOD 12/04/2024 8:24 AM [facility] MCV 84.7 79.0 - 98.0 FL LAB HEMETOLOGY METHOD 12/04/2024 8:24 AM [facility] MCH 26.3(L) 27.0 - 32.0 pcg LAB HEMETOLOGY METHOD 12/04/2024 8:24 AM [facility] MCHC 31.1(L) 32.0 - 37.0 g/dL LAB HEMETOLOGY METHOD 12/04/2024 8:24 AM [facility] RDW 14.1 11.0 - 15.0 % LAB HEMETOLOGY METHOD 12/04/2024 8:24 AM [facility] Platelets 150 130 - 400 K/mcL LAB HEMETOLOGY METHOD 12/04/2024 8:24 AM [facility] MPV 13.3(H) 7.0 - 11.0 FL LAB HEMETOLOGY METHOD 12/04/2024 8:24 AM [facility] NRBC 0.0 <1.0 % LAB HEMETOLOGY METHOD 12/04/2024 8:24 AM EDT [facility] NRBC Absolute 0.00 <0.10 K/mcL LAB HEMETOLOGY METHOD 12/04/2024 8:24 AM EDT [facility] Blood Venous blood specimen / Unknown Venipuncture / Unknown 12/04/2024 4:44 AM EDT 12/04/2024 8:00 AM EDT us Jeanette Mendosa MD LAB BLOOD ORDERABLES Final Resu lt [facility] [address] [place] [address], documented in this encounter Visit Diagnoses Diagnosis Cerebral ischemia Other generalized ischemic cerebrovascular disease documented in this encounter Care Teams School Transportation Supervisor Relationship Specialty Start Date End Date Jodi Toussaint RN [address] [place] [phone] PCP - General 06/16/21 documented as of this encounter
--- OUTSIDE RECORDS SUMMARY | 2025-01-23 13:19 | XMS_ITS | Clinical Summary ---
Author Organization [employer] Address [address] [place] [address] Care Team Providers Care Customer Marketing Manager Name Role Phone Gilda De La Torre MD Primary Care Provide r Toya Kyle PharmD Unavailable [phone] Allergies Active Allergy Reactions Criticality Noted Date Comments Duloxetine 04/06/2019 Duloxetine Hcl 05/19/2022 Other reaction(s): Hydroxyzine, Risperidone, Trazodone Hydroxyzine 04/06/2019 Quetiapine 05/27/2023 Risperidone 04/06/2019 Trazodone 04/06/2019 Medications lidocaine (Lidoderm) 5 % patchIndications:C hronic low back pain, unspecified back pain laterality, unspecified whether sciatica present Apply 1 patch topically in the morning. Remove & discard patch within 12 hours or as directed by MD. 30 patch 1 03/25/19 Active Additional Information Patient not taking.Reported on 06/08/2024 ibuprofen 800 MG tabletIndications: Chronic nonintractable headache, unspecified headache type TAKE 1 TABLET BY MOUTH EVERY 8 HOURS NEEDED ONLY FOR HEADACHE 30 tablet 1 03/28/19 Active Additional Information Patient not taking.Reported on 06/08/2024 ARIPiprazole (Abilify) 20 MG tablet Take 1 tablet by mouth in the morning. 05/13/19 Active busPIRone (Buspar) 10 MG tablet Take 1 tablet by mouth 3 times daily. 11/25/19 Active docusate sodium (Colace) 100 MG capsule Take 2 capsules by mouth if needed each day for constipation. Active sertraline (Zoloft) 100 MG tablet Take 1.5 tablets by mouth in the morning. 05/14/19 24 Active lamoTRIgine (LaMICtal) 200 MG tablet Take 1 tablet by mouth in the morning. Active Magnesium 400 MG capsule Take 1 capsule by mouth Once daily. 90 capsule 3 07/22/19 24 Active Additional Information Patient not taking.Reported on 06/08/2024 insulin lispro (HumaLOG KWIKPEN) 100 UNIT/ML injectionIndicatio ns:Type 2 diabetes mellitus with hyperglycemia, with long-term current use of insulin ([facility]) Inject 6 units if blood sugar 200-250, inject 8 units if blood sugar >250 twice daily with meals 1 each 3 09/28/19 24 Active polyvinyl alcohol (Liquifilm Tears) 1.4 % ophthalmic solution INSTILL 1 DROP IN EACH EYE 4 (FOUR) TIMES DAILY 10/06/19 24 Active Alcohol Swabs (Alcohol Pads) 70 % padsIndications:Ty pe 2 diabetes mellitus with hyperglycemia, with long-term current use of insulin ([facility]) USE DIRECTED 3 (THREE) TIMES A DAY NEEDED 100 each 5 02/07/20 24 Active Nyamyc 235928 UNIT/GM powder APPLY TO THE AFFECTED AREA TOPICALLY two (2) times a day 30 g 03/05/19 25 Active Additional Information Patient not taking.Reported on 06/08/2024 traZODone (Desyrel) 50 MG tablet take one (1) tablet by mouth at bedtime 12/31/19 24 Active QUEtiapine (SEROquel) 50 MG tablet Take 1 tablet by mouth at bedtime as needed 03/05/19 25 Active ammonium lactate (Lac-Hydrin) 12 % lotion 02/27/20 24 Active Continuous Glucose Financial Assistance Specialist (FreeStyle Ni 3 Blanchard) deviceIndications: Type 2 diabetes mellitus with other specified complication, with long-term current use of insulin ([facility]) 1 each Use as directed. 1 each 03/26/19 25 Active Additional Information Patient not taking.Reported on 06/08/2024 Continuous Glucose Sensor (FreeStyle Ni 3 Sensor) miscIndications:Ty pe 2 diabetes mellitus with other specified complication, with long-term current use of insulin ([facility]) 1 each Use as directed. 2 each 03/26/19 25 Active Additional Information Patient not taking.Reported on 06/08/2024 glucose blood (FreeStyle Precision Marbin Test) test stripIndications:T ype 2 diabetes mellitus with other specified complication, with long-term current use of insulin (HCC) Use as directed; check blood sugar every 8 hours 100 each 03/26/19 25 026 Active Additional Information Patient not taking.Reported on 06/08/2024 mirtazapine (Remeron) 7.5 MG tablet take one (1) tablet by mouth at bedtime 04/12/19 25 Active omeprazole (PriLOSEC) [address] capsule Take 20 mg by mouth before breakfast. Do not crush or chew. Active pantoprazole (ProtoNix) 40 MG EC tabletIndications: Gastroesophageal reflux disease, unspecified whether esophagitis present TAKE 1 TABLET BY MOUTH ONCE DAILY BEFORE BREAKFAST 30 tablet 5 07/07/19 25 Active atorvastatin (Lipitor) 80 MG tabletIndications: Primary hypertension Take 1 tablet (80 mg) by mouth at bedtime. 90 tablet 07/13/19 25 Active nystatin (Mycostatin) ointment Apply topically 2 times daily. Apply to the affected area two times a day- corner of the mouth. 15 g 07/21/19 25 026 Active lisinopril 10 MG tabletIndications: Primary hypertension TAKE 1 TABLET BY MOUTH EVERY DAY 30 tablet 2 08/01/19 25 Active metoprolol tartrate (Lopressor) 25 MG tablet TAKE 1 TABLET BY MOUTH two (2) times a day. TAKE WITH FOOD 60 tablet 08/25/19 25 Active gabapentin (Neurontin) 100 MG capsuleIndications :Chronic low back pain, unspecified back pain laterality, unspecified whether sciatica present TAKE 2 CAPSULES BY MOUTH ONCE DAILY 60 capsule 09/14/19 25 Active Acetaminophen Extra Strength 500 MG tabletIndications: Low back pain, unspecified TAKE 2 TABLETS BY MOUTH EVERY 8 HOURS 30 tablet 1 09/14/19 25 Active metFORMIN (Glucophage) 500 MG tabletIndications: Type 2 diabetes mellitus with other specified complication, with long-term current use of insulin (HCC) Take 1 tablet (500 mg) by mouth with breakfast and with evening meal. 180 tablet 2 09/19/19 25 Active Diclofenac Sodium 1 % gelIndications:Chr onic pain of right knee Apply 1 each topically if needed in the morning and at bedtime (apply on afected are twice a day as needed). 100 g 2 09/19/19 25 Active LORazepam (Ativan) 0.5 MG tablet take one (1) tablet by mouth every evening 09/14/19 25 Active OLANZapine (ZyPREXA) 5 MG tablet Take 1 tablet by mouth at bedtime. 09/14/19 25 Active liver oil-zinc oxide (Desitin) 40 % ointmentIndication s:Erythema intertrigo Apply topically if needed for irritation. 113 g 09/27/19 25 Active furosemide (Lasix) 20 MG tablet TAKE 1 TABLET BY MOUTH ONCE DAILY 30 tablet 2 10/12/19 25 Active insulin glargine (Lantus SoloStar) 100 UNIT/ML penIndications:Typ e 2 diabetes mellitus with hyperglycemia, with long-term current use of insulin (HCC) INJECT 24 UNITS UNDER THE SKIN ONCE DAILY AT BEDTIME 15 mL 11 10/31/19 25 Active Comfort EZ Pen [place] 32G X 4 MM misc USE DIRECTED WITH lantus solostar pens AND 3 (THREE) TIMES A DAY WITH humalog 100 each 11 10/31/19 25 Active Aspirin Low Dose 81 MG EC tabletIndications: Primary hypertension TAKE 1 TABLET BY MOUTH ONCE DAILY 90 tablet 2 11/21/19 25 Active Trulicity 4.5 MG/0.5ML solution auto-injectorIndic ations:Type 2 diabetes mellitus with hyperglycemia, with long-term current use of insulin (HCC) Inject 4.5 mg under the skin 1 (one) time per week. 2 mL 2 12/12/19 25 Active polyethylene glycol, PEG, 3350 (MiraLax) 17 GM/SCOOP powderIndications: Slow transit constipation Take 17 g by mouth Once per day. 527 g 2 09/27/19 25 025 Active Problems Problem Noted Date Diagnosed Date [...] 11/06/2023 Chronic kidney disease, stage 3 unspecified (CMS /HCC) 11/06/2023 Assessment & Plan (09/19/2024 7:43 PM EDT): [...] Tobacco dependence syndrome 01/28/2012 Chronic schizoaffective schizophrenia ([facility]) 08/20/2011 Assessment & Plan (09/19/2024 7:44 PM EDT): F/u with psychiatrist and CHD Assessment & Plan (09/08/2022 4:18 PM EDT): continue to follow with psychiatrist Frontal lobe dementia ([facility]) 08/20/2011 Assessment & Plan (09/19/2024 7:46 PM EDT): Stable will continue to monitor Assessment & Plan (04/08/2023 4:33 PM EST): Patient 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 Schizoaffective disorder ([facility]) 05/20/2022 04/02/2024 Hypertension 07/28/2011 04/02/2024 Assessment & Plan (10/20/2023 [...] Encounters Date Type Department Care Team Description 01/08/2025 Telephone [facility] [address] [place] [phone] Gilda De La Torre MD nov recall 12/31/[address] [address] Toya Kyle, PharmD Appointment Request 12/25/2024 Telephone [facility] [address] [place] [phone] Gilda De La Torre MD 12/24/2024 Patient Outreach [facility] [address] [place] [phone] Gilda De La Torre MD Pre-visit Planning (LVM) 12/20/2024 Telephone [facility] [address] [place] [phone] Gilda De La Torre MD 12/19/2024 Telephone [facility] [address] [place] [phone] Gilda De La Torre MD 12/19/2024 Orders Only [facility] [address] [place] [address] Gilda De La Torre MD Type 2 diabetes mellitus with diabetic polyneuropathy, with long-term current use of insulin (HCC) (Primary Dx); Primary hypertension 12/19/2024 Telephone [facility] [address] [place] [address] Toya Kyle, PharmD 12/14/2024 Telephone [facility] [address] [place] [address] Gilda De La Torre MD 12/11/2024 Refill [facility] [address] [place] [address] Gilda De La Torre MD Type 2 diabetes mellitus with hyperglycemia, with long-term current use of insulin (HCC) 11/18/2024 Refill [facility] [address] [place] [address] Gilda De La Torre MD Primary hypertension 11/13/2024 Orders Only GENERIC EXTERNAL DATA DEPARTMENT Provider, Generic External Data 11/12/2024 Orders Only GENERIC EXTERNAL DATA DEPARTMENT Provider, Generic External Data 11/11/2024 Orders Only GENERIC EXTERNAL DATA DEPARTMENT Provider, Generic External Data 11/09/2024 Patient Outreach [facility] [address] [place] [address] Gilda De La Torre MD Transition Of Care (Tcm) (HDF unscheduled LVM ) 11/06/2024 Telephone [facility] [address] [place], [place] [phone] Gilda De La Torre MD NOV RECALL 11/03/2024 Orders Only GENERIC EXTERNAL DATA DEPARTMENT Provider, Generic External Data 10/29/2024 Orders Only GENERIC EXTERNAL DATA DEPARTMENT Provider, Generic External Data 10/28/2024 Orders Only GENERIC EXTERNAL DATA DEPARTMENT Provider, Generic External Data 10/27/2024 Refill [facility] [address] [place] [address] Gilda De La Torre MD Type 2 diabetes mellitus with hyperglycemia, with long-term current use of insulin ([facility]) 10/24/2024 Telephone [facility] [address] [place] [address] Gilda De La Torre MD FYI from Last 3 Months Immunizations Immunization Administration [...] Description 01/30/2025 11:00 AM EST Office Visit [facility] [address] [place] [address] Meme Covington, OD [address] [place] [address] 03/20/2025 3:00 PM EST Office Visit [facility] [address] [place] [address] Gilda De La Torre MD [address] [place] [address] Health Maintenance Due Date Last Done Comments CT Colonography 1955 Dental Prophylaxis 1955 Dental X-Ray: Bitewings 1955 FIT DNA/Cologuard 1955 FIT 1955 FOBT 1955 Sigmoidoscopy 1955 Hepatitis C Screening 01/16/1974 Dental Oral Exam 10/01/2024 04/02/2024, 12/23/2022 COVID-19 Vaccine ( season) 2024 03/10/2022, 12/22/2020, 06/03/2020, Additional history exists Influenza Vaccine (#1) 2024 5, 12/03/2022, 12/08/2021, Additional history exists Diabetes: Hemoglobin A1C 03/13/2025 025, 11/14/2024, 09/19/2024, Additional history exists Mammogram 03/15/2025 03/15/2024, 12/29, [...] Associated Diagnosis Comments GLUCOSE, WHOLE BLOOD Routine 11/13/2024 1:38 PM EDT GLUCOSE, WHOLE BLOOD Routine 11/13/2024 11:55 AM EDT GLUCOSE, WHOLE BLOOD Routine 11/13/2024 7:29 AM EDT GLUCOSE, WHOLE BLOOD Routine 11/12/2024 6:26 AM EDT URINALYSIS WITH REFLEX MICROSCOPIC Routine 11/11/2024 5:[address] HEAD WO CONTRAST Routine 11/11/2024 2 :[address] CERVICAL SPINE WO CONTRAST Routine 11/11/2024 2:35 PM EDT COVID-19 ID NOW (TRAN) Routine 11/11/2024 12:02 PM EDT MAGNESIUM Routine 11/11/2024 12:02 PM EDT COMPREHENSIVE METABOLIC PANEL Routine 11/11/2024 12:02 PM EDT CBC WITH AUTO DIFFERENTIAL Routine 11/11/2024 12:02 PM EDT INFLUENZA A B2 ID NOW (TRAN) Routine 11/11/2024 12:02 PM EDT US RENAL COMPLETE Routine 11/07/2024 8:2 7 [...] AUTO DIFFERENTIAL Routine 10/28/2024 10:13 AM EDT POCT GLYCATED HEMOGLOBIN, TOTAL Routine 09/19/2024 2:29 PM EDT Type 2 diabetes mellitus with hyperglycemia, with long-term current use of insulin ([facility]) ALBUMIN, RANDOM URINE W/CREATININE Routine 05/14/2024 3:16 PM EDT LIPID PANEL, STANDARD Routine 05/12/2024 8:02 AM EDT Dyslipidemia PANORAMIC RADIOGRAPHIC IMAGE Routine 04/02/2024 3:00 PM EST PERIODIC ORAL EVALUATION - ESTABLISHED PATIENT Routine 04/02/2024 3:00 PM EST HM MAMMOGRAPHY Routine 03/15/2024 2:11 PM EST from Last 3 Months or Most Recently Relevant to Health Maintenance Results * (ABNORMAL) Glucose, Whole Blood (11/13/2024 1:38 PM EDT) Only the most recent of7 resultswithin the time period is included. Glucose, Whole Blood 327(H) 60 - 115 mg/dL [facility] Comment:METER #: [id number] 11/13/2024 1:38 PM EDT 11/13/2024 1:42 PM EDT us Generic External Data Provider LAB BLOOD ORDERAB LES Final Result [facility] [address] [place] [phone] * (ABNORMAL) Urinalysis w/reflex microscopic (11/11/2024 5:15 PM EDT) Color Urine Yellow [facility] Appearance Urine Clear [facility] PH 6.5 5.0 - 9.0 [facility] Glucose Urine UA 100(A) Negative mg/dL [facility] Urine Blood Negative Negative [facility] Specific [place] - Urine 1.010 1.005 - 1.025 [facility] Urine Protein Negative Neg-Trace mg/dL [facility] Urine Ketones Negative Negative mg/dL [facility] Nitrite Urine Negative Negative [facility] Leukocyte Esterase Urine Negative Negative [facility] 11/11/2024 5:15 PM EDT 11/11/2024 5:20 PM EDT Narrative [facility] - 11/11/2024 5:23 PM EDT Urine, Clean Catch us Generic External Data Provider LAB URINE ORDERAB LES Final Result Performing Organization Address City/State/[facility] Co de Phone Number [facility] [address] [place] [phone] * CT Head w/o Contrast (11/11/2024 2:40 PM EDT) Only the most recent of3 resultswithin the time period is included. Anatomical Region Laterality Modality Head, Neck Computed Tomogra phy 11/11/2024 2:40 PM EDT Narrative 11/11/2024 2:41 PM EDT [address] [address] [address] Scan Report Signed Patient: Celeste Cunha MR#: [id number] : 1955 Acct:[id number] Age/Sex: 69 / F ADM Date: 11/11/24 Loc: HO.ED Attending Dr: Ordering Physician: Helga Balderrama NP Date of Service: 11/11/24 Procedure(s): CT head/brain wo IV con Accession Number(s): [id number] cc: [facility]; Helga Balderrama NP Report Number: [id number]: Total DLP = 0.00 mGy-cm Reason for Exam: fall with head strike CLINICAL HISTORY: fall with head strike CT head without contrast Comparison: CT/REG/SR - CT HEAD/BRAIN WO IV CON - 11/03/24 18:56 EDT Findings: No intra-axial mass, midline shift, hydrocephalus, or acute hemorrhage. Mild heterogeneous low attenuation in the periventricular white matter. Flyb-yi-wsbfkuqh cerebral atrophy. There is no sinus or mastoid fluid. The orbits are unremarkable. No skull fracture. IMPRESSION: 1. No acute intracranial findings. 2. Mild chronic periventricular microvascular ischemic disease 3. Ksgf-rk-pvssnbpo cerebral atrophy. This document has been electronically signed by: Michael Restrepo MD on 11/11/2024 14:40:15 Dictated By: Michael Restrepo MD Signed By: <Electronically signed by Michael Restrepo MD in OV> 11/11/24 1441 DD/ 1440 TD/TT: 11/11/24 1440 Group Managing Director: Procedure Note Donotuseinterpreter, Image - 11/11/[address] [place] [address] [address] Scan Report Signed Patient: Akiko Cunha#: [id number] : 6Acct:[id number] Age/Sex: 69 / FADM Date: 11/11/24 Loc: HO.ED Attending Dr: Ordering Physician: Helga Balderrama NP Date of Service: 11/11/24 Procedure(s): CT head/brain wo IV con Accession Number(s): [id number] cc: [facility]; Helga Balderrama NP Report Number: [id number]: Total DLP = 0.00 mGy-cm Reason for Exam: fall with head strike CLINICAL HISTORY: fall with head strike CT head without contrast Comparison: CT/REG/SR - CT HEAD/BRAIN WO IV CON - 11/03/24 18:56 EDT Findings: No intra-axial mass, midline shift, hydrocephalus, or acute hemorrhage. Mild heterogeneous low attenuation in the periventricular white matter. Llvj-en-lwaflgxa cerebral atrophy. There is no sinus or mastoid fluid. The orbits are unremarkable. No skull fracture. IMPRESSION: 1. No acute intracranial findings. 2. Mild chronic periventricular microvascular ischemic disease 3. Jasr-fv-fpopktdl cerebral atrophy. This document has been electronically signed by: Michael Restrepo MD on 11/11/2024 14:40:15 Dictated By: Michael Restrepo MD Signed By: <Electronically signed by Michael Restrepo MD in OV> 11/11/24 1441 DD/ 1440 TD/TT: 11/11/24 1440 Group Managing Director: [facility] External Provider IMG CT PROCEDURES Edited Result - Final * CT Cervical Spine w/o Contrast (11/11/2024 2:35 PM EDT) Only the most recent of3 resultswithin the time period is included. Anatomical Region Laterality Modality Spine, C-spine Computed Tomogra phy 11/11/2024 2:35 PM EDT Narrative 11/11/2024 2:37 PM EDT [place] [address] CT Scan Report Signed Patient: Celeste Cunha MR#: [id number] : 1955 Acct:[id number] Age/Sex: 69 / F ADM Date: 11/11/24 Loc: HO.ED Attending Dr: Ordering Physician: Helga Balderrama NP Date of Service: 11/11/24 Procedure(s): CT cervical spine wo IV con Accession Number(s): [id number] cc: [facility]; Helga Balderrama NP Report Number: [id number]: Total DLP = 857.00 mGy-cm Reason for Exam: fall with head strike CLINICAL HISTORY: fall with head strike CT cervical spine without contrast Comparison: CT/SR - CT CERVICAL SPINE WO IV CON - 11/03/24 18:56 EDT Findings: Mild osteopenia. No acute findings on limited view of the intracranial contents. No cervical fluid collections or masses. Lung apices are clear. C1-2: Mild anterior osteoarthrosis. C5-6: Grade 1 retrolisthesis C5 over C6. Moderate DJD. Ymzq-sl-pkktxagf anterior spurring.Moderate to severe bilateral neural foraminal stenosis. C6-7: Moderate to severe DJD. Lhdi-cg-wjjjkpcj anterior spurring. Moderate to severe left and moderate right calcified atherosclerotic disease of the proximal internal carotid arteries. IMPRESSION: 1. No acute cervical spine findings. 2. Grade 1 retrolisthesis C5 over C6. 3. Moderate to severe degenerative changes at C5-C6 and C6-C7. 4. Mild osteopenia. This document has been electronically signed by: Michael Restrepo MD on 11/11/2024 14:35:57 Dictated By: Michael Restrepo MD Signed By: <Electronically signed by Michael Restrepo MD in OV> 11/11/246 DD/ 34 TD/TT: 11/11/241434 Group Managing Director: Procedure Note Donotuseinterpreter, Image - 11/11/[address] [place] [address] [address] Scan Report Signed Patient: Akiko Cunha#: [id number] : 6Acct:[id number] Age/Sex: 69 / FADM Date: 11/11/24 Loc: HO.ED Attending Dr: Ordering Physician: Helga Balderrama NP Date of Service: 11/11/24 Procedure(s): CT cervical spine wo IV con Accession Number(s): [id number] cc: [facility]; Helga Balderrama NP Report Number: [id number]: Total DLP = 857.00 mGy-cm Reason for Exam: fall with head strike CLINICAL HISTORY: fall with head strike CT cervical spine without contrast Comparison: CT/SR - CT CERVICAL SPINE WO IV CON - 11/03/24 18:56 EDT Findings: Mild osteopenia. No acute findings on limited view of the intracranial contents. No cervical fluid collections or masses. Lung apices are clear. C1-2: Mild anterior osteoarthrosis. C5-6: Grade 1 retrolisthesis C5 over C6. Moderate DJD. Vxrl-nv-nhczipdg anterior spurring.Moderate to severe bilateral neural foraminal stenosis. C6-7: Moderate to severe DJD. Vzgd-bl-jhuuepjv anterior spurring. Moderate to severe left and moderate right calcified atherosclerotic disease of the proximal internal carotid arteries. IMPRESSION: 1. No acute cervical spine findings. 2. Grade 1 retrolisthesis C5 over C6. 3. Moderate to severe degenerative changes at C5-C6 and C6-C7. 4. Mild osteopenia. This document has been electronically signed by: Michael Restrepo MD on 11/11/2024 14:35:57 Dictated By: Michael Restrepo MD Signed By: <Electronically signed by Michael Restrepo MD in OV> 11/11/241435 DD/ 34 TD/TT: 11/11/241434 Group Managing Director: [facility] External Provider IMG CT PROCEDURES Edited Result - Final * Influenza A B2 ID NOW (Tran) (11/11/2024 12:02 PM EDT) IDNOW SERIAL# [id number] [facility] Influenza A Negative Negative [facility] Influenza B2 Negative Negative [facility] Influenza A B2 Note See Note [facility] Comment:The Tran ID NOW In fluenza A B2 test is used for thequalitative detection of influenza A and B from patientswith signs and symptoms of respiratory infection.Negative results do not preclude influenza virus infectionand should not be used as the sole basis for diagnosis,treatment or other patient management decisions.There is a risk of false negative results due to thepresence of variants in the viral targets of the assay, lowlevels of virus in the specimen and co- infection withRespiratory Syncytial Virus. 11/11/2024 12:0 2 PM EDT 11/11/2024 12:05 PM EDT Generic External Data Provider LAB MICROBIOLOGY - GENERAL ORDERABLES Final Result [facility] [address] [place] [phone] * COVID-19 ID NOW (TRAN) (11/11/2024 12:02 PM EDT) IDNOW SERIAL# [id number] [facility] COVID-19 TEST Negative Negative [facility] COVID-19 NOTE See Note [facility] Comment: Results are for the identification of SARS-CoV2 RNA. TheSARS-CoV2 RNA is generally detectable in respiratory samplesduring the acute phase of infection. Positive results areindicative of the presence of SARS-CoV-2 RNA; clinicalcorrelation with patient history and other diagnosticinformation is necessary to determine patient infectionstatus. Positive results do not rule out bacterial infectionor co- infection with other viruses.Testing facilities within the [facility] and itsterritories are required to report all positive results tothe appropriate public health authorities.Negative results should be treated as presumptive and, ifinconsistent with clinical signs and symptoms or necessaryfor patient management, should be tested with differentauthorized or cleared molecular tests. Negative results donot preclude SARS-CoV2 RNA infection and should not be usedas the sole basis for patient management decisions. Negativeresults should be considered in the context of a patient'srecent exposures, history and the presence of clinical signsand symptoms consistent with COVID-19.This test has been authorized by the FDA under an EmergencyUse Authorization (EUA) for use by authorized laboratories.Testing performed on the Tran ID NOW utilizing NAAT. 11/11/2024 12:0 2 PM EDT 11/11/2024 12:05 PM EDT us Generic External Data Provider LAB MOLECULAR CORRINE GNOSTICS ORDERABLES Final Result [facility] [address] [place] [phone] * (ABNORMAL) CBC auto differential (11/11/2024 12:02 PM EDT) Only the most recent of3 resultswithin the time period is included. Pathologist [facility] White Blood Count 11.1(H) 4.8 - 10.8 X10*3/uL [facility] Red Blood Count 4.12(L) 4.20 - 5.50 X10*6/uL [facility] Hemoglobin 11.1(L) 12.0 - 16.0 g/dl [facility] Hematocrit 34.3(L) 37.0 - 47.0 % [facility] Mean Corpuscular Volume 83.3 80.0 - 98.0 fL [facility] Mean Corpuscular Hemoglobin 26.9(L) 27.0 - 33.0 pg [facility] Mean Corpuscular HGB Conc 32.4 31.0 - 35.0 g/dl [facility] Red Cell Distribution Width 13.8 11.0 - 16.0 % [facility] Platelet Count 235 160 - 400 X10*3/uL [facility] Mean Platelet Volume 11.6 9.4 - 12.3 fL [facility] Neutrophils Percent Auto 57.0 45 - 73 % [facility] Imm Gran Pct Auto 0.3 0.0 - 0.4 % [facility] Lymphocytes Percent Auto 28.6 20 - 40 % [facility] Monocytes Percent Auto 10.8 2 - 11 % [facility] Eosinophils Percent Auto 2.8 0 - 4 % [facility] Basophils Percent Auto 0.5 0 - 2 % [facility] NRBC Pct Auto 0.0 0.0 - 0.2 /100WBC [facility] Neutrophils Absolute Auto 6.3 2.0 - 8.3 x10*3/uL [facility] Imm Gran Abs Auto 0.03 0.00 - 0.03 X10*3/uL [facility] Lymphocytes Absolute Auto 3.2 1.2 - 4.9 X10*3/uL [facility] Monocytes Absolute Auto 1.2 0.1 - 1.2 X10*3/uL [facility] Eosinophils Absolute Auto 0.3 0.0 - 0.4 X10*3/uL [facility] Basophils Absolute Auto 0.1 0.0 - 0.2 X10*3/uL [facility] NRBC Abs Auto 0.000 0.0 - 0.012 X10*3/uL [facility] 11/11/2024 12:0 2 PM EDT 11/11/2024 12:05 PM EDT Generic External Data Provider LAB BLOOD ORDERAB LES Final Result Performing Organization Address [facility]/ZIP Co de Phone Number [facility] [address] [place] [phone] * Magnesium (11/11/2024 12:02 PM EDT) Only the most recent of2 resultswithin the time period is included. Pathologist [facility] Magnesium 2.2 1.6 - 2.6 mg/dL [facility] 11/11/2024 12:0 2 PM EDT 11/11/2024 12:05 PM EDT Generic External Data Provider LAB BLOOD ORDERAB LES Final Result Performing Organization Address [facility] de Phone Number [facility] [address] [place] [phone] * (ABNORMAL) Comprehensive Metabolic Panel (11/11/2024 12:02 PM EDT) Only the most recent of3 resultswithin the time period is included. Pathologist [facility] Sodium 131(L) 135 - 145 mmol/L [facility] Potassium 5.4(H) 3.3 - 5.1 mmol/L [facility] Chloride 98 96 - 108 mmol/L [facility] Carbon Dioxide 26 22 - 29 mmol/L [facility] Anion Gap 12 12 - 20 [facility] Urea Nitrogen (BUN) 25(H) 9 - 16 mg/dL [facility] Creatinine, Serum 1.12 0.5 - 1.4 mg/dL [facility] Creatinine Clr Calc Pharmacy 40.1 [facility] Comment:Provided height and weight: 152.4 cm,64 kg.eGFR (calculated from the MDRD study equation) and eCrCl(calculated from the Cockcroft-Gault equation) are based ondifferent parameters and may not yield comparable results.If eCrCl result is absurd, please check patient'sheight/weight. Estimated Glomerular Filt Rate 48 [facility] Comment:Chronic Kidney Disea se: Estimated GFR < 60 mL/min/1.90f0[place]ratse Kidney Disease: Estimated GFR < 15 mL/min/1.73m2 Glucose 212(H) 60 - 115 mg/dL [facility] Calcium 10.2 8.4 - 10.2 mg/dL [facility] Bilirubin, Total 0.2 0.0 - 1.0 mg/dL [facility] Aspartate Amino Transferase 58(H) 5 - 31 U/L [facility] Alanine Aminotransferase 60(H) 0 - 31 U/L [facility] Total Protein 8.1(H) 6.5 - 8.0 g/dL [facility] Albumin Level 4.5 3.5 - 5.0 g/dL [facility] Alkaline Phosphatase 98 39 - 117 U/L [facility] 11/11/2024 12:0 2 PM EDT 11/11/2024 12:05 PM EDT us Generic External Data Provider LAB BLOOD ORDERAB LES Final Result Performing Organization Address City/State/[facility] Co de Phone Number [facility] [address] [place] [phone] * US Renal Complete (11/07/2024 8:27 AM EDT) Anatomical Region Laterality Modality Kidney Ultrasound 11/07/2024 8:27 AM EDT Narrative 11/07/2024 9:43 AM EDT [address] [address] Ultrasound Report Signed Patient: Celeste Cunha MR#: [id number] : 1955 Acct:[id number] Age/Sex: 69 / F ADM Date: 11/03/24 Loc: [facility] 458-[address]: Ezekiel Salinas DO Ordering Physician: Tima Hardy MD Date of Service: 11/07/24 Procedure(s): US renal BI Accession Number(s): [id number] cc: Gilda De La Torre MD; Tima [...] signed by Joe Meng MD in OV> 11/07/24 0940 DD/ 0827 TD/TT: 11/07/24 0859 Group Managing Director: Procedure Note Donotuseinterpreter, Image - 11/07/[address] [address] Ultrasound Report Signed Patient: Akiko Cunha#: [id number] : 6Acct:[id number] Age/Sex: 69 / FADM Date: 11/03/24 Loc: HO.[facility] 458-[address]: Ezekiel Salinas DO Ordering Physician: Tima Hardy MD Date of Service: 11/07/24 Procedure(s): US renal BI Accession Number(s): [id number] cc: Gilda De La Torre MD; Tima [...] Joe Meng MD in OV> 11/07/2440 DD/ 0827 TD/TT: 11/07/24 0859 Group Managing Director: us [facility] External Provider IMG US PROCEDURES Final Result * MR Lumbar Spine w/o Contrast (11/04/2024 6:07 PM EDT) Anatomical Region Laterality Modality Spine, L-spine Magnetic Resonan ce 11/04/2024 6:07 PM EDT Narrative 11/04/2024 6:09 PM EDT [address] [address] Magnetic Resonance Report Signed Patient: Celeste Cunha MR#: [id number] : 1955 Acct:[id number] Age/Sex: 69 / F ADM Date: 11/03/24 Loc: [facility]: Tima Hardy MD Ordering Physician: Brenda Hummel MD Date of Service: 11/04/24 Procedure(s): MR lumbar spine wo con Accession Number(s): [id number] cc: Gilda De La Torre MD; Brenda [...] bulge or central canal stenosis. Partially visualized lossyaek-vg-qhpqmd bilateral hydronephrosis and hydroureter with partially visualized [...] in OV> 11/04/241807 DD/ 06 TD/TT: 11/04/241806 Group Managing Director: Procedure Note Donotuseinterpreter, Image - 11/04/2024 [place] [address] Magnetic Resonance Report Signed Patient: Akiko Cunha#: [id number] : 1955cct:[id number] Age/Sex: 69 / FADM Date: 11/03/24 Loc: [facility]-[address]: Tima Hardy MD Ordering Physician: Brenda Hummel MD Date of Service: 11/04/24 Procedure(s): MR lumbar spine wo con Accession Number(s): [id number] cc: Gilda De La Torre MD; Brenda [...] bulge or central canal stenosis. Partially visualized qwxxqmqn-gz-uzcjby bilateral hydronephrosis and hydroureter with partially visualized [...] in OV> 11/04/241807 DD/ 06 TD/TT: 11/04/241806 Group Managing Director: [facility] External Provider IMG MRI PROCEDURES Edited Result - Final * XR Knee 1-2 Views Right (11/04/2024 1:44 AM EDT) Anatomical Region Laterality Modality Lower Extremities, Knee Right Radiogra [facility] Imaging 11/04/2024 1:44 AM EDT Narrative 11/04/2024 1:45 AM EDT [address] [address] XRay Report Signed Patient: Celeste Cunha MR#: [id number] : 1955 Acct:[id number] Age/Sex: 69 / F ADM Date: 11/03/24 [facility]: Brenda Menjivar MD Ordering Physician: Generic ED Physician Date of Service: 11/04/24 Procedure(s): XR knee RT 2V Accession Number(s): [id number] cc: Gilda De La Torre MD; Generic [...] signed by Shai Mcdaniel MD in OV> 11/04/24 014 DD/ 3 TD/TT: 11/04/24 014 Group Managing Director: Procedure Note Donotuseinterpreter, Image - 11/04/2024 [place] [address] XRay Report Signed Patient: Akiko Cunha#: [id number] : 6Acct:[id number] Age/Sex: 69 / FADM Date: 11/03/24 Loc: [place] [facility]-[address]: Brenda Menjivar MD Ordering Physician: Generic ED Physician Date of Service: 11/04/24 Procedure(s): XR knee RT 2V Accession Number(s): [id number] cc: Gilda De La Torre MD; Generic [...] in OV> 11/04/24144 DD/ 3 TD/TT: 11/04/24143 Group Managing Director: [facility] External Provider IMG XR PROCEDURES Edited Result - Final * (ABNORMAL) Urinalysis, Complete, with Reflex to Culture (11/03/2024 10:15 PM EDT) Only the most recent of3 resultswithin the time period is included. Color Urine Yellow [facility] Appearance Urine Clear [facility] PH 6.5 5.0 - 9.0 [facility] Glucose Urine UA Negative Negative mg/dL [facility] Urine Blood Negative Negative [facility] Specific [place] - Urine <=1.005 1.005 - 1.025 [facility] Urine Protein Negative Neg-Trace mg/dL [facility] Urine Ketones Negative Negative mg/dL [facility] Nitrite Urine Negative Negative [facility] Leukocyte Esterase Urine Large (3+)(A) Negative [facility] RBC Urine 0-2 0 - 2 /HPF [facility] Urine WBC 11-20(A) 0 - 5 /HPF [facility] Urine Squamous Epithelial Cell 0-2 0 - 2 /HPF [facility] Urine Bacteria None Seen None Seen [facility] Hyaline Casts, Urine 0-2 0 - 2 /LPF [facility] 11/03/2024 10:1 5 PM EDT 11/03/2024 10:50 PM EDT Narrative [facility] - 11/03/2024 11:06 PM EDT [id number], Clean Catch us Generic External Data Provider LAB URINE ORDERAB LES Final Result [facility] [address] [place] [phone] * XR Shoulder 2+ Views Left (11/03/2024 7:44 PM EDT) Anatomical Region Laterality Modality Upper Extremities, Shoulder Left Radi ographic Imaging 11/03/2024 7:44 PM EDT Narrative 11/03/2024 7:45 PM EDT [address] [address] XRay Report Signed Patient: Celeste Cunha MR#: [id number] : 1955 Acct:[id number] Age/Sex: 69 / F ADM Date: 11/03/24 Loc: HO.ED Attending Dr: Ordering Physician: Starr Calle Date of Service: 11/03/24 Procedure(s): XR shoulder LT min 2V Accession Number(s): [id number] cc: Gilda De La Torre MD; Starr [...] in OV> 11/03/241943 DD/ 43 TD/TT: 11/03/241943 Group Managing Director: Procedure Note Paolorosannejeffrylayne, Jane - 11/03/[address] [address] XRay Report Signed Patient: Akiko Cunha#: [id number] : 6Acct:[id number] Age/Sex: 69 / FADM Date: 11/03/24 Loc: HO.ED Attending Dr: Ordering Physician: Starr Calle Date of Service: 11/03/24 Procedure(s): XR shoulder LT min 2V Accession Number(s): [id number] cc: Gilda De La Torre MD; Starr [...] in OV> 11/03/241943 DD/ 43 TD/TT: 11/03/241943 Group Managing Director: [facility] External Provider IMG XR PROCEDURES Edited Result - Final * High Sensitivity Troponin I (11/03/2024 6:39 PM EDT) Only the most recent of2 resultswithin the time period is included. TROPONIN I HIGH SENSITIVITY 4.3 <3.5 - 17.0 ng/L [facility] Comment:The Tran high sens itivity Troponin-I results should beused in conjunction with other diagnostic information suchas ECG, clinical observations and information, and patientsymptoms to aid in the diagnosis of MN. 11/03/2024 6:39 PM EDT 11/03/2024 6:42 PM EDT Generic External Data Provider LAB BLOOD ORDERAB LES Final Result Performing Organization Address [facility] Co de Phone Number [facility] [address] [place] [phone] * (ABNORMAL) Creatine Kinase, Total (11/03/2024 6:39 PM EDT) Only the most recent of2 resultswithin the time period is included. Creatine Kinase Total 356(H) 26 - 140 U/L [facility] 11/03/2024 6:39 PM EDT 11/03/2024 6:42 PM EDT Generic External Data Provider LAB BLOOD ORDERAB LES Final Result Performing Organization Address [facility] Co de Phone Number [facility] [address] [place] [phone] * XR Pelvis 1-2 Views (10/28/2024 12:09 PM EDT) Anatomical Region Laterality Modality Body, Pelvis Radiographic Ailyn ging 10/28/2024 12:0 9 PM EDT Narrative 10/28/2024 12:10 PM EDT [address] [address] XRay Report Signed Patient: Celeste Cunha MR#: [id number] : 1955 Acct:[id number] Age/Sex: 69 / F ADM Date: 10/28/24 Loc: HO.ED Attending Dr: Ordering Physician: Chris Galvez Date of Service: 10/28/24 Procedure(s): XR pelvis 1-2V Accession Number(s): [id number] cc: Gilda De La Torre MD; Chris [...] in OV> 10/28/24 1210 DD/ 1209 TD/TT: 10/28/241208 Group Managing Director: Procedure Note Donotuseinterpreter, Image - 10/28/2024 [place] [address] XRay Report Signed Patient: Akiko Cunha#: [id number] : 6Acct:[id number] Age/Sex: 69 / FADM Date: 10/28/24 Loc: HO.ED Attending Dr: Ordering Physician: Chris Galvez Date of Service: 10/28/24 Procedure(s): XR pelvis 1-2V Accession Number(s): [id number] cc: Gilda De La Torre MD; Chris [...] OV> 10/28/24 1210 DD/ 1209 TD/TT: 10/28/24 120 Group Managing Director: [facility] External Provider IMG XR PROCEDURES Final Result * XR Chest 1 View (10/28/2024 12:08 PM EDT) Anatomical Region Laterality Modality Chest Radiographic Ailyn ging 10/28/2024 12:0 8 PM EDT Narrative 10/28/2024 12:09 PM EDT [address] [address] XRay Report Signed Patient: Celeste Cunha MR#: [id number] : 1955 Acct:[id number] Age/Sex: 69 / F ADM Date: 10/28/24 Loc: HO.ED Attending Dr: Ordering Physician: Chris Galvez Date of Service: 10/28/24 Procedure(s): XR chest 1V Accession Number(s): [id number] cc: Gilda De La Torre MD; Chris Galvez CLINICAL HISTORY: trauma --- Additional Notes or Special Instructions: can wait for c spine to be cleared 1 view chest x-ray. Comparison: CR/WV/SR - XR CHEST 2 VIEWS - 10/14/23 [...] 10/28/24 1209 DD/ 1208 TD/TT: 10/28/24 1208 Group Managing Director: Procedure Note Donotuseinterpreter, Image - 10/28/[address] [address] XRay Report Signed Patient: Cecilio CunhaR#: [id number] : 1955cct:[id number] Age/Sex: 69 / FADM Date: 10/28/24 Loc: HO.ED Attending Dr: Ordering Physician: Chris Galvez Date of Service: 10/28/24 Procedure(s): XR chest 1V Accession Number(s): [id number] cc: Gilda De La Torre MD; Chris Galvez CLINICAL HISTORY: trauma --- Additional Notes or Special Instructions: canwait for c spine to be cleared 1 view chest x-ray. Comparison: CR/WV/SR - XR CHEST 2 VIEWS - 10/14/23 [...] 10/28/24 1209 DD/ 1208 TD/TT: 10/28/24 1208 Group Managing Director: [facility] External Provider IMG XR PROCEDURES Final Result * (ABNORMAL) POCT HGB A1C (09/19/2024 2:29 PM EDT) [facility] Hemoglobin A1C 8.2(A) 4.0 - 5.7 % QC Media Lot # [id number] Lot# Expiration Date Blood 09/19/2024 2:29 PM EDT Gilda Maynard MD POINT OF CARE TEST EN TER/EDIT ORDERABLES Final Result * (ABNORMAL) Albumin, Random Urine W/Creatinine (05/14/2024 3:16 PM EDT) Pathologist [facility] Creatinine, Urine 33.29 mg/dL [facility] Microalbumin Urine 46.0 mg/L H [facility] Microalbum Creatinine Ratio Ur 138.1(H) <30 ug/mg cr [facility] Comment:Albumin/Creatinine R atio Reference Ranges: Normal: < 30 ug/mg creatinine Microalbuminuria: 30 - 300 ug/mg creatinineClinical Albuminuria: > 300 ug/mg creatinine 05/14/2024 3:16 PM EDT 05/14/2024 4:40 PM EDT us Gilda Maynard MD LAB URINE ORDERABLES Final Result Performing Organization Address [facility] Co de Phone Number [facility] [address] [place] [phone] * Lipid Panel, Standard (05/12/2024 8:02 AM EDT) Triglycerides 59 <150 mg/dL [facility] Comment:Desirable Triglyceri de: less than 150 mg/dLBorderline High Triglyceride 150-199 mg/dLHigh Triglyceride: 200-499 mg/dLVery High Triglyceride: greater than or equal to 5OO mg/dL Cholesterol 135 <200 mg/dL [facility] Comment:Desirable Cholestero l: less than 200 mg/dLBorderline High Cholesterol: 200-239 mg/dLHigh Cholesterol: greater than 239 mg/dL LDL Cholesterol Calculated 68 <100 mg/dL [facility] Comment:Desirable LDL: less than 100 mg/dLNear Optimal/Above Optimal LDL: 110- 129 mg/dLBorderline High LDL: 130-159 mg/dLHigh LDL: 160-189 mg/dLVery High LDL: greater than or equal to 190 mg/dL HDL Cholesterol 56 >40 mg/dL [facility] Comment:Desirable HDL: great er than 40 mg/dL Note: This HDL assay may give artificially low results in patients with liver disease. Blood Venous blood specimen / Unknown 05/12/2024 8:02 AM EDT 05/12/2024 8:02 AM EDT us Gilda Maynard MD LAB BLOOD ORDERABLES Final Result Performing Organization Address [facility]/ZIP Co de Phone Number [facility] [address] [place] [phone] * Hm Mammography (03/15/2024 2:11 PM EST) Anatomical Region Laterality Modality Other us Historical Provider HEALTH MAINTENANCE Final Result from Last 3 Months or Most Recently Relevant to Health Maintenance Insurance * Guarantor: Celeste Cunha Account Type Relation to Patient Date of Phone Billing Address Personal/Family Self [address] [place] [address] [facility] [employer] (O D-SNP) * Guarantor: Celeste Cunha Account Type Relation to Patient Date of Phone Billing Address Dental Self [address] [place] [address] [facility] * Guarantor: Celeste Cunha Account Type Relation to Patient Date of Phone Billing Address Personal/Family Self [address] [place] [id number] * Guarantor: Celeste Cunha Account Type Relation to Patient Date of Phone Billing Address Personal/Family Self [address] [place] [address] Care Teams Customer Marketing Manager Relationship Specialty Start Date End Date Gilda De La Torre MD [address] [place] [address] PCP - General Family Medicine 10/25/21 Toya Kyle, RosaD [address] [place] [phone] Pharmacist Internal Medicine 11/06/23 Ina 10/31/24
--- OUTSIDE RECORDS SUMMARY | 2025-01-23 13:19 | XMS_ITS | Encounter Summary ---
Author Organization [employer] Address [address] [facility] [address] [place] [address] Care Team Providers Care Dough Raiser Name Role Phone Gilda De La Torre MD Primary Care Provide r Toya Kyle PharmD Unavailable [phone] Encounter Details Date Type Department Care Team (Late Contact Info) Description 06/22/2022 Orders Only [facility] CHC MED & PEDS [address] [place] [address] Sneha Zapien LPN Social History Tobacco Use [...] Description 01/30/2025 11:00 AM EST Office Visit [facility] OPTOMETRY [address] [place] [address] Adria, Meme, OD [address] [place], [place] [phone] 03/20/2025 3:00 PM EST Office Visit [facility] MEDICINE [address] [place] [address] Gilda De La Torre MD [address] [place] [address] documented as of this encounter Visit Diagnoses Not on filedocumented in this encounter Additional Health Concerns Assessment Noted Time PHQ-9 Depression Total Score: 14 023 10:32 AM EDT documented as of this encounter Care Teams Dough Raiser Relationship Specialty Start Date End Date Gilda De La Torre MD [address] [place] [address] PCP - General Family Medicine 10/25/21 Toya Kyle, RosaD [address] [place] [phone] Pharmacist Internal Medicine 11/06/23 Ina 10/31/24 documented as of this encounter
--- OUTSIDE RECORDS SUMMARY | 2025-01-23 13:19 | XMS_ITS | Encounter Summary ---
Author Organization [employer] Address [address] [facility] [address] [place] [address] Care Team Providers Care Cooler Conveyor Loader Name Role Phone Gilda De La Torre MD Primary Care Provide r Toya Kyle PharmD Unavailable [phone] Reason for Visit * Reason Onset Date Comments Error 06/10/2023 Encounter Details Date Type Department Care Team (Late st Contact Info) Description 06/10/2023 Telephone [facility] MEDICINE [address] [place], [place] [phone] Gilda De La Torre MD [address] [place], [place] [phone] Error Social History Tobacco Use Types Packs/Day [...] 11:00 AM EST Office Visit [facility] OPTOMETRY [address] [place] [address] Adria, Meme, OD [address] [place] [address] 03/20/2025 3:00 PM EST Office Visit [facility] MEDICINE [address] [place] [address] Gilda De La Torre MD [address] [place] [address] documented as of this encounter Visit Diagnoses Not on filedocumented in this encounter Additional Health Concerns Assessment Noted Time PHQ-9 Depression Total Score: 14 023 10:32 AM EDT documented as of this encounter Care Teams Cooler Conveyor Loader Relationship Specialty Start Date End Date Gilda De La Torre MD [address] [place] [address] PCP - General Family Medicine 10/25/21 Toya Kyle, Fay [address] [place] [address] Pharmacist Internal Medicine 11/06/23 Ina 10/31/24 documented as of this encounter
--- OUTSIDE RECORDS SUMMARY | 2025-01-23 13:20 | XMS_ITS | Encounter Summary ---
Author Organization [employer] Address [address] [place] [address] Care Team Providers Care Channel Lip Stiffener Insoles Name Role Phone Gilda De La Torre MD Primary Care Provide r Toya Kyle PharmD Unavailable [phone] Reason for Visit * Reason Comments Med Refill Encounter Details Date Type Department Care Team (Late st Contact Info) Description 03/08/2024 Refill [facility] MEDICINE [address] [place], [place] [phone] Gilda De La Torre MD [address] [place], [place] [phone] Primary hypertension Social History Tobacco Use Types [...] Description 01/30/2025 11:00 AM EST Office Visit [facility] OPTOMETRY [address] [place] [address] Adria, Meme, OD [address] [place] [address] 03/20/2025 3:00 PM EST Office Visit [facility] MEDICINE [address] [place] [address] Gilda De La Torre MD [address] [place] [address] documented as of this encounter Visit Diagnoses Diagnosis Primary hypertension Unspecified essential hypertension documented in this encounter Additional Health Concerns Assessment Noted Time PHQ-9 Depression Total Score: 0 09/23/19 3:00 PM EDT documented as of this encounter Care Teams Channel Lip Stiffener Insoles Relationship Specialty Start Date End Date Gilda De La Torre MD [address] [place], [place] [phone] PCP - General Family Medicine 10/25/21 Toya Kyle, RosaD [address] [place] [address] Pharmacist Internal Medicine 11/06/23 Ina 10/31/24 documented as of this encounter
--- OUTSIDE RECORDS SUMMARY | 2025-01-23 13:20 | XMS_ITS | Encounter Summary ---
Author Organization [employer] Address [address] [place] [address] Care Team Providers Care Rat Culturist Name Role Phone Gilda De La Torre MD Primary Care Provide r Toya Kyle PharmD Unavailable [phone] Encounter Details Date Type Department Care Team (Late st Contact Info) Description 11/02/2023 Telephone [facility] MEDICINE [address] [place] [address] Toya Kyle, PharmD [address] [place] [address] Social History Tobacco Use Types Packs/Day Years [...] for this patient to enroll care in [facility] - Diabetes clinic. Please send at your earliest convenience. documented in this encounter Plan of Treatment Upcoming Encounters Date Type Department Care Team (Late st Contact Info) Description 01/30/2025 11:00 AM EST Office Visit [facility] OPTOMETRY [address] [place] [address] Meme Covington, DONNELL [address] [place] [address] 03/20/2025 3:00 PM EST Office Visit [facility] MEDICINE [address] [place] [address] Gilda De La Torre MD [address] [place] [phone] documented as of this encounter Visit Diagnoses Diagnosis Type 2 diabetes mellitus with hyperglycemia, with long-term current use of insulin (HCC)- Primary documented in this encounter Additional Health Concerns Assessment Noted Time PHQ-9 Depression Total Score: 0 09/23/19 24 3:00 PM EDT documented as of this encounter Care Teams Rat Culturist Relationship Specialty Start Date End Date Gilda De La Torre MD [address] [place] [phone] PCP - General Family Medicine 10/25/21 Toya Kyle, RosaD [address] [place] [phone] Pharmacist Internal Medicine 11/06/23 Ina 10/31/24 documented as of this encounter
--- OUTSIDE RECORDS SUMMARY | 2025-01-23 13:20 | XMS_ITS | Encounter Summary ---
Author Organization [facility] Address [address] [place] [address] Care Team Providers Care Tool Engineer Name Role Phone Jodi Toussaint RN Primary Care Provider Encounter Details Date Type Department Care Team (Latest Contact Info) Description 12/11/2024 Lab Requisition [facility] - Main Lab [address] [facility] [place] [address] Jeanette Mendosa MD [address] [place] [phone] Other longterm (current) drug therapy; Type 2 diabetes mellitus without complications (CMS/HCC V24, CMS/[facility] V28) Social History Tobacco Use Types Packs/Day [...] Procedure Name Priority Date/Time Associated Diagnosis Comments LIPID PANEL WITH REFLEX TO DIRECT LDL Routine 12/11/2024 5:37 AM EDT Other longterm (current) drug therapy Type 2 diabetes mellitus without complications (CMS/HCC V24, CMS/[facility] V28) COMPLETE BLOOD COUNT Routine 12/11/2024 5:37 AM EDT 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 Type 2 diabetes mellitus without complications (CMS/HCC V24, CMS/HCC V28) HEMOGLOBIN A1C Routine 12/11/2024 5:37 AM EDT 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 Type 2 diabetes mellitus without complications ([facility] V24, [facility] V28) COMPREHENSIVE METABOLIC PANEL Routine 12/11/2024 5:37 AM EDT Other longterm (current) drug therapy Type 2 diabetes mellitus without complications ([facility] V24, [facility] V28) documented in this encounter Results * (ABNORMAL) Hemoglobin A1c (12/11/2024 5:37 AM EDT) Hemoglobin A1C 9.4(H) <6.5 % LAB CHEMISTRY METHOD 12/11/2024 11:17 AM EDT [facility] Mean Bld Glu Estim. 223 mg/dL LAB CHEMISTRY METHOD 12/11/2024 11:17 AM EDT [facility] Blood Venous blood specimen / Unknown Venipuncture / Unknown 12/11/2024 5:37 AM EDT 12/11/2024 7:56 AM EDT us Jeanette Mendosa MD LAB BLOOD ORDERABLES Final Resu lt [facility] [address] [place] [address], * Lipid panel with reflex to direct LDL (12/11/2024 5:37 AM EDT) Cholesterol 145 0 - 200 mg/dL LAB CHEMISTRY METHOD 12/11/2024 9:34 AM EDT [facility] Triglycerides 66 0 - 150 mg/dL LAB CHEMISTRY METHOD 12/11/2024 9:34 AM EDT [facility] HDL 59 >=40 mg/dL LAB CHEMISTRY METHOD 12/11/2024 9:34 AM EDT [facility] LDL Calculated 73 0 - 100 mg/dL LAB CHEMISTRY METHOD 12/11/2024 9:34 AM T [facility] Comment:Estimated LDL Calcul ated using equation: Total cholesterol - HDL cholesterol - (Triglycerides/5) VLDL Cholesterol Arnol 13.2 mg/dL LAB CHEMISTRY METHOD 12/11/2024 9:34 AM [facility] Non HDL Chol. (LDL+VLDL) 86 <145 mg/dL LAB CHEMISTRY METHOD 12/11/2024 9:34 AM [facility] Chol/HDL Ratio 2.5 0.0 - 4.4 LAB CHEMISTRY METHOD 12/11/2024 9:34 AM [facility] Blood Venous blood specimen / Unknown Venipuncture / Unknown 12/11/2024 5:37 AM EDT 12/11/2024 7:56 AM EDT us Jeanette Mendosa MD LAB BLOOD ORDERABLES Final Resu lt [facility] [address] [place] [address], [place] [phone] * (ABNORMAL) Comprehensive metabolic panel (12/11/2024 5:37 AM EDT) Sodium 138 133 - 145 mmol/L LAB CHEMISTRY METHOD 12/11/2024 9:34 AM [facility] Potassium 4.9 3.5 - 5.5 mmol/L LAB CHEMISTRY METHOD 12/11/2024 9:34 AM [facility] Chloride 102 96 - 110 mmol/L LAB CHEMISTRY METHOD 12/11/2024 9:34 AM [facility] CO2 29 21 - 32 mmol/L LAB CHEMISTRY METHOD 12/11/2024 9:34 AM [facility] Anion Gap 7 3 - 11 LAB CHEMISTRY METHOD 12/11/2024 9:34 AM [facility] Glucose 129(H) 70 - 100 mg/dL LAB CHEMISTRY METHOD 12/11/2024 9:34 AM [facility] BUN 21 5 - 25 mg/dL LAB CHEMISTRY METHOD 12/11/2024 9:34 AM [facility] Creatinine 0.91 0.50 - 1.10 mg/dL LAB CHEMISTRY METHOD 12/11/2024 9:34 AM [facility] eGFR 69 >=60 mL/min/1. 73m2 LAB CHEMISTRY METHOD 12/11/2024 9:34 AM [facility] Comment:Calculation based on the Chronic Kidney Disease Epidemiology Collaboration (CKD-EPI) equation refit without adjustment for race. BUN/Creatinine Ratio 23.1 LAB CHEMISTRY METHOD 12/11/2024 9:34 AM [facility] Calcium 10.2 8.5 - 10.5 mg/dL LAB CHEMISTRY METHOD 12/11/2024 9:34 AM [facility] AST (SGOT) 30 10 - 42 unit/L LAB CHEMISTRY METHOD 12/11/2024 9:34 AM [facility] ALT (SGPT) 43 10 - 60 unit/L LAB CHEMISTRY METHOD 12/11/2024 9:34 AM [facility] Alkaline Phosphatase 94 42 - 121 unit/L LAB CHEMISTRY METHOD 12/11/2024 9:34 AM [facility] Total Protein 7.2 6.0 - 8.0 g/dL LAB CHEMISTRY METHOD 12/11/2024 9:34 AM [facility] Albumin 3.3 3.2 - 5.0 g/dL LAB CHEMISTRY METHOD 12/11/2024 9:34 AM [facility] Total Bilirubin 0.2 0.0 - 1.4 mg/dL LAB CHEMISTRY METHOD 12/11/2024 9:34 AM [facility] Blood Venous blood specimen / Unknown Venipuncture / Unknown 12/11/2024 5:37 AM EDT 12/11/2024 7:56 AM EDT us Jeanette Mendosa MD LAB BLOOD ORDERABLES Final Resu lt [facility] [address] [place] [address], [place] [phone] * (ABNORMAL) Complete blood count (12/11/2024 5:37 AM EDT) WBC 8.8 4.8 - 10.8 K/mcL LAB HEMETOLOGY METHOD 12/11/2024 8:41 AM EDT [facility] RBC 4.20 3.80 - 4.80 M/mcL LAB HEMETOLOGY METHOD 12/11/2024 8:41 AM EDT [facility] Hemoglobin 10.7(L) 11.5 - 16.0 g/dL LAB HEMETOLOGY METHOD 12/11/2024 8:41 AM EDT [facility] Hematocrit 35.3 35.0 - 47.0 % LAB HEMETOLOGY METHOD 12/11/2024 8:41 AM EDT [facility] MCV 84.9 79.0 - 98.0 FL LAB HEMETOLOGY METHOD 12/11/2024 8:41 AM EDT [facility] MCH 25.7(L) 27.0 - 32.0 pcg LAB HEMETOLOGY METHOD 12/11/2024 8:41 AM EDT [facility] MCHC 30.3(L) 32.0 - 37.0 g/dL LAB HEMETOLOGY METHOD 12/11/2024 8:41 AM EDT [facility] RDW 13.7 11.0 - 15.0 % LAB HEMETOLOGY METHOD 12/11/2024 8:41 AM EDT [facility] Platelets 211 130 - 400 K/mcL LAB HEMETOLOGY METHOD 12/11/2024 8:41 AM EDT [facility] MPV 13.0(H) 7.0 - 11.0 FL LAB HEMETOLOGY METHOD 12/11/2024 8:41 AM EDT [facility] NRBC 0.0 <1.0 % LAB HEMETOLOGY METHOD 12/11/2024 8:41 AM EDT [facility] NRBC Absolute 0.00 <0.10 K/mcL LAB HEMETOLOGY METHOD 12/11/2024 8:41 AM EDT [facility] Blood Venous blood specimen / Unknown Venipuncture / Unknown 12/11/2024 5:37 AM EDT 12/11/2024 7:56 AM EDT us Jeanette Mendosa MD LAB BLOOD ORDERABLES Final Resu lt [facility] [address] [place] [address], documented in this encounter Visit Diagnoses Diagnosis Other longterm (current) drug therapy Type 2 diabetes mellitus without complications (CMS/HCC V24, CMS/HCC V28) documented in this encounter Care Teams Tool Engineer Relationship Specialty Start Date End Date Jodi Toussaint RN [address] [place] [phone] PCP - General 06/16/21 documented as of this encounter
== END 2025-01-23 12:03 | disposition home or self-care (01) ==
LOC: HO.HKA 10:53
PROVIDERS: PCP Internal Medicine; Visit Provider Internal Medicine Nephrology
DX: I10 Essential (primary) hypertension (principal)
CPT/HCPCS: 99214

== ENCOUNTER → 2025-01-23 10:52 | Outpatient (BNVA) | payer OTHER, SELFPAY | PROVIDERS: PCP Internal Medicine; Visit Provider Internal Medicine Nephrology | DX: I10 Essential (primary) hypertension (principal); F17.210 Nicotine dependence, cigarettes, uncomplicated | CPT/HCPCS: 99212 ==